=== PATIENT | female | born 1955 | race Two or more races ===

== ENCOUNTER 2020-04-17 14:16 | Outpatient (REF) | payer OTHER, SELFPAY ==
--- NOTE | 2020-04-17 | US_ITS ---
EXAMINATION: BILATERAL LOWER EXTREMITY VENOUS ULTRASOUND CLINICAL INFORMATION: Pain and swelling COMPARISON: Previous right lower extremity venous ultrasound November 2015 and left lower extremity venous ultrasound January 2010 TECHNIQUE: Doppler, color and grayscale evaluation of the veins of the bilateral lower extremities FINDINGS: The common femoral, superficial femoral, profunda and popliteal veins and visualized peroneal and posterior tibial veins in the calves are patent. There is no evidence of DVT. There is no Esparza's cyst. IMPRESSION: No evidence of DVT.
== END 2020-04-17 14:17 | disposition home or self-care (01) ==
LOC: HO.US 14:16
PROVIDERS: PCP Family Medicine; Visit Provider Emergency Medicine
DX: I83.813 Varicose veins of bilateral lower extremities with pain (principal); R22.43 Localized swelling, mass and lump, lower limb, bilateral
CPT/HCPCS: 93970

== ENCOUNTER 2020-05-03 09:38 | Outpatient (REF) | payer OTHER, SELFPAY ==
[2020-05-03 11:06] LABS: Alanine Aminotransferase 16 U/L (0-31); Albumin Level 4.1 g/dL (3.5-5.0); Alkaline Phosphatase 117 U/L (39-117); Anion Gap 16 (12-20); Aspartate Amino Transferase 16 U/L (5-31); Bilirubin Total 0.5 mg/dL (0.0-1.0); Blood Urea Nitrogen 19 mg/dL (9-16); Calcium 9.5 mg/dL (8.4-10.2); Carbon Dioxide 26 mmol/L (22-29); Chloride 103 mmol/L (96-108); Estimated Glomerular Filt Rate > 60; Glucose Random 159 mg/dL (60-115); Potassium 4.8 mmol/l (3.3-5.1); Sodium 140 mmol/L (135-145); Total Protein 7.1 g/dL (6.5-8.0)
== END 2020-05-03 09:39 | disposition home or self-care (01) ==
LOC: HO.LAB 09:38
PROVIDERS: PCP Nurse Practitioner Family; Referring Provider Nurse Practitioner Family; Visit Provider Student in an Organized Health Care Education/Training Program
DX: M19.072 Primary osteoarthritis, left ankle and foot (principal); M19.071 Primary osteoarthritis, right ankle and foot; M25.551 Pain in right hip; L60.0 Ingrowing nail; E11.9 Type 2 diabetes mellitus without complications; Z88.0 Allergy status to penicillin; Z79.84 Long term (current) use of oral hypoglycemic drugs; Z79.82 Long term (current) use of aspirin; Z79.899 Other long term (current) drug therapy
CPT/HCPCS: 80053; 99213

== ENCOUNTER 2020-05-13 12:49 | Outpatient (REF) | payer OTHER, SELFPAY ==
--- NOTE | 2020-05-13 12:50 | XR_ITS ---
EXAMINATION: BILATERAL KNEE X-RAY CLINICAL INFORMATION: Arthritis right knee. Left knee replacement. COMPARISON: Previous x-ray most recent September 2016 TECHNIQUE: Standing AP, lateral and sunrise views of both knees FINDINGS: Right: Bone alignment is normal. No fracture or dislocation is seen. There is arthritis at the medial femoral tibial and patellofemoral joints with joint space narrowing and osteophyte formation. There is degenerative meniscal calcification at the lateral femoral tibial joint. There is an osteophyte at the quadriceps tendon insertion to the patella and patellar tendon insertion to the tibia tubercle. There is no joint effusion. Left knee: There is a 3 compartment left knee replacement in satisfactory position. No fracture or dislocation is seen. There is no joint effusion. XR/XR knee standing BI IMPRESSION: Right knee: Severe arthritis. Left knee: Satisfactory appearance of left knee replacement.
--- NOTE | 2020-05-13 12:50 | XR_ITS ---
EXAMINATION: BILATERAL KNEE X-RAY CLINICAL INFORMATION: Arthritis right knee. Left knee replacement. COMPARISON: Previous x-ray most recent September 2016 TECHNIQUE: Standing AP, lateral and sunrise views of both knees FINDINGS: Right: Bone alignment is normal. No fracture or dislocation is seen. There is arthritis at the medial femoral tibial and patellofemoral joints with joint space narrowing and osteophyte formation. There is degenerative meniscal calcification at the lateral femoral tibial joint. There is an osteophyte at the quadriceps tendon insertion to the patella and patellar tendon insertion to the tibia tubercle. There is no joint effusion. Left knee: There is a 3 compartment left knee replacement in satisfactory position. No fracture or dislocation is seen. There is no joint effusion. XR/XR knee LT 2V IMPRESSION: Right knee: Severe arthritis. Left knee: Satisfactory appearance of left knee replacement.
--- NOTE | 2020-05-13 12:50 | XR_ITS ---
EXAMINATION: BILATERAL KNEE X-RAY CLINICAL INFORMATION: Arthritis right knee. Left knee replacement. COMPARISON: Previous x-ray most recent September 2016 TECHNIQUE: Standing AP, lateral and sunrise views of both knees FINDINGS: Right: Bone alignment is normal. No fracture or dislocation is seen. There is arthritis at the medial femoral tibial and patellofemoral joints with joint space narrowing and osteophyte formation. There is degenerative meniscal calcification at the lateral femoral tibial joint. There is an osteophyte at the quadriceps tendon insertion to the patella and patellar tendon insertion to the tibia tubercle. There is no joint effusion. Left knee: There is a 3 compartment left knee replacement in satisfactory position. No fracture or dislocation is seen. There is no joint effusion. XR/XR knee RT 2V IMPRESSION: Right knee: Severe arthritis. Left knee: Satisfactory appearance of left knee replacement.
== END 2020-05-13 12:50 | disposition home or self-care (01) ==
LOC: HO.HOSX 12:49
PROVIDERS: PCP Nurse Practitioner Family; Referring Provider Nurse Practitioner Family; Visit Provider Orthopaedic Surgery
DX: M17.11 Unilateral primary osteoarthritis, right knee (principal); E11.9 Type 2 diabetes mellitus without complications; I10 Essential (primary) hypertension; Z96.652 Presence of left artificial knee joint; Z79.82 Long term (current) use of aspirin; Z79.899 Other long term (current) drug therapy; Z79.84 Long term (current) use of oral hypoglycemic drugs
CPT/HCPCS: 73560; 73565; 99212

== ENCOUNTER 2020-05-20 10:56 | Outpatient (REF) | payer OTHER, SELFPAY ==
--- NOTE | 2020-05-20 11:17 | MM_ITS ---
EXAMINATION: MM SCREENING DIGITAL BREAST TOMOSYNTHESIS, BILATERAL CLINICAL INFORMATION: Screening. Asymptomatic. The lifetime risk of breast cancer based on the Tyrer-Cuzick Model is 4%. COMPARISON: Mammography: 05/18/2019, 01/17/2019, 01/04/2018; ultrasound left breast 05/18/2019, 11/17/2019 TECHNIQUE: Digital breast tomosynthesis is performed in both the craniocaudal and mediolateral oblique views along with computer-aided detection (CAD). Synthesized 2D images are generated from the tomosynthesis. Additional exaggerated left CC view is provided. FINDINGS: The breasts are almost entirely fatty (ACR BI-RADS breast composition Category a). Background stromal densities are stable. There is no developing density or interval mass or architectural abnormality or abnormal calcifications the axilla are unremarkable. No significant changes. MM/MM tomosynthesis screening BI IMPRESSION: No mammographic evidence of malignancy. ASSESSMENT: BI-RADS 1: Negative RECOMMENDATION: Routine annual mammography screening. This patient's information was entered into a reminder system with a target due date for their next mammogram.
== END 2020-05-20 10:57 | disposition home or self-care (01) ==
LOC: HO.MAMMO 10:56
PROVIDERS: PCP Family Medicine; Visit Provider Family Medicine
DX: Z12.31 Encounter for screening mammogram for malignant neoplasm of breast (principal)
CPT/HCPCS: 77063; 77067

== ENCOUNTER 2020-07-24 10:13 | Outpatient (REF) | payer OTHER, SELFPAY ==
--- NOTE | 2020-07-24 10:18 | US_ITS ---
EXAMINATION: US RETROPERITONEAL LIMITED (RENAL ONLY) CLINICAL INFORMATION: Personal history of urinary calculi. COMPARISON: CT abdomen and pelvis 05/12/2019. Renal ultrasound 04/19/2019 and 04/05/2018. X-ray abdomen KUB 09/15/2017. TECHNIQUE: Real-time imaging of the kidneys. FINDINGS: RIGHT KIDNEY: 10.4 x 5.1 x 4.8 cm (SAG x AP x TRV). The kidney is normal in size, contour, and echogenicity. Renal cortical thickness is normal. No calculi or focal parenchymal lesions. No hydronephrosis. LEFT KIDNEY: 12.6 x 5.5 x 4.6 cm (SAG x AP x TRV). The kidney is normal in size, contour, and echogenicity. Renal cortical thickness is normal. No calculi or focal parenchymal lesions. No hydronephrosis. US/US renal BI IMPRESSION: Unremarkable bilateral renal ultrasound.
== END 2020-07-24 10:14 | disposition home or self-care (01) ==
LOC: HO.US 10:13
PROVIDERS: PCP Family Medicine; Visit Provider Urology
DX: Z87.442 Personal history of urinary calculi (principal)
CPT/HCPCS: 76775

== ENCOUNTER → 2020-10-07 13:42 | Outpatient (BNVA) | payer MEDICARE, SELFPAY | PROVIDERS: PCP Family Medicine; Visit Provider Physician Assistant | DX: R14.0 Abdominal distension (gaseous) (principal) | CPT/HCPCS: Q3014 ==

== ENCOUNTER 2020-10-08 09:29 | Outpatient (REF) | payer MEDICARE, SELFPAY ==
[2020-10-08 10:22] LABS: MANUAL DIFF FLAG NO
[2020-10-08 10:38] LABS: Basophils Percent Auto 0.4 % (0-2); Eosinophils Absolute Auto 0.1 X10*3/uL (0.0-0.4); Eosinophils Percent Auto 1.6 % (0-4); Hematocrit 38.3 % (37-47); Hemoglobin 12.2 g/dl (12.0-16.0); Imm Gran Abs Auto 0.01 X10*3/uL (0.00-0.03); Imm Gran Pct Auto 0.1 % (0.0-0.4); Lymphocytes Absolute Auto 1.6 X10*3/uL (1.2-4.9); Lymphocytes Percent Auto 22.9 % (20-40); Mean Corpuscular HGB Conc 31.9 g/dl (31.0-35.0); Mean Corpuscular Hemoglobin 26.5 pg (27.0-33.0); Mean Corpuscular Volume 83.3 fL (80-98); Mean Platelet Volume 12.4 fL (9.4-12.3); Monocytes Absolute Auto 0.4 X10*3/uL (0.1-1.2); Monocytes Percent Auto 6.2 % (2-11); Neutrophils Absolute Auto 4.7 X10*3/uL (2.0-8.3); Neutrophils Percent Auto 68.8 % (45-73); Platelet Count 252 X10*3/uL (160-400); Red Cell Distribution Width 14.3 % (11.0-16.0); White Blood Count 6.9 X10*3/uL (4.8-10.8)
[2020-10-08 11:01] LABS: Estimated Average Glucose 180 mg/dL; Hemoglobin A1c % 7.9 %
[2020-10-08 11:14] LABS: Alanine Aminotransferase 21 U/L (0-31); Albumin Level 4.2 g/dL (3.5-5.0); Alkaline Phosphatase 132 U/L (39-117); Anion Gap 16 (12-20); Aspartate Amino Transferase 16 U/L (5-31); Bilirubin Total 0.6 mg/dL (0.0-1.0); Blood Urea Nitrogen 18 mg/dL (9-16); Calcium 9.4 mg/dL (8.4-10.2); Carbon Dioxide 25 mmol/L (22-29); Chloride 104 mmol/L (96-108); Estimated Glomerular Filt Rate > 60; Glucose Random 203 mg/dL (60-115); Potassium 4.6 mmol/L (3.3-5.1); Sodium 140 mmol/L (135-145); Total Protein 7.3 g/dL (6.5-8.0)
[2020-10-08 11:24] LABS: Thyroid Stimulating Hormone 2.65 uIU/mL (0.32-4.0)
== END 2020-10-08 09:30 | disposition home or self-care (01) ==
LOC: HO.LAB 09:29
PROVIDERS: PCP Family Medicine; Visit Provider Physician Assistant
DX: R74.01 Elevation of levels of liver transaminase levels (principal); R10.11 Right upper quadrant pain; A04.8 Other specified bacterial intestinal infections; E11.9 Type 2 diabetes mellitus without complications; K59.09 Other constipation
CPT/HCPCS: 36415; 80053; 83036; 84443; 85025; 87338

== ENCOUNTER 2020-12-06 02:23 | Emergency (ER) | payer MEDICARE, SELFPAY ==
--- NOTE | ~2020-12-06 | CT_ITS ---
EXAMINATION: CT ABDOMEN AND PELVIS WITHOUT CONTRAST CLINICAL INFORMATION: Left flank pain COMPARISON: 05/12/2019 TECHNIQUE: Multidetector volumetric imaging was performed from the superior aspect of the liver through the pubic symphysis. Sagittal and coronal reformatted images were obtained on the technologist's workstation. This CT examination was performed using dose optimization techniques as appropriate, variously including the following: *Automated exposure control *Adjustment of mA and/or kV according to patient size (this includes techniques or standardized protocols for targeted exams where dose is matched to indication/reason for exam; i.e. extremities or head) *Use of iterative reconstruction technique DLP: 1010 mGy-cm FINDINGS: LUNG BASES: Minimal left basilar atelectasis. Mitral annular calcification. LIVER, GALLBLADDER, AND BILIARY TREE: The liver is normal in size and shape with decreased attenuation. No focal hepatic lesion or biliary ductal dilatation is present. The gallbladder is unremarkable with no evidence of radiopaque gallstones, gallbladder wall thickening, or obvious pericholecystic inflammatory changes. PANCREAS: Unremarkable. SPLEEN: Unremarkable. ADRENAL GLANDS: Unremarkable. KIDNEYS AND URETERS: The kidneys are normal in size, shape, and attenuation. Mild left hydroureteronephrosis. There is a 0.5 cm calculus in the distal ureter approximately 4 cm proximal to the ureterovesicular junction. Mild perinephric and periureteral stranding. No additional left-sided calculi. There is a right lower pole 0.4 cm calculus 13 cm from the posterior axillary line. BLADDER: Unremarkable. GASTROINTESTINAL TRACT: The stomach is decompressed. Normal caliber small bowel. There is no obstruction. Normal appendix. No colonic wall thickening or acute inflammatory change. No free air or free fluid. ABDOMINAL WALL: Fat-containing umbilical hernia. LYMPH NODES: Normal. VASCULAR: Normal caliber aorta with moderate atherosclerotic calcification. PELVIC VISCERA: The uterus and adnexa are unremarkable. OSSEOUS STRUCTURES: No acute or suspicious osseous abnormality. Degenerative changes throughout the spine. CT/CT abdomen pelvis wo con IMPRESSION: Mild left hydroureteronephrosis with a 0.5 cm distal ureteral calculus. Nonobstructing right lower pole renal calculus. Hepatic steatosis.
[2020-12-06 02:43] VITALS: BP 169/67; PULSE 77; RESP 18; O2SAT 96; BMI 48.1
[2020-12-06 03:07] LABS: Glucose Urine UA >=1000 MG/DL (NEG); Leukocyte Esterase Urine NEG (NEG); Nitrite Urine NEG (NEG); Urine Blood 3+ (NEG); Urine Ketones NEG (NEG); Urine Protein NEG (NEG-TRACE)
[2020-12-06 03:23] LABS: Appearance Urine CLEAR; Color Urine YELLOW
[2020-12-06 03:25] LABS: Bacteria Urine 1+ /LPF; RBC Urine 30-49 /HPF (0); Squamous Epithelial Cell Urine 1+ /LPF
[2020-12-06 03:49] LABS: MANUAL DIFF FLAG NO
--- NOTE | 2020-12-06 03:49 | ED_ITS ---
HPI - General Adult General Chief complaint: General Medical Stated complaint: Flank Pain Time Seen by Provider: 12/06/20 03:42 Source: patient Mode of arrival: ambulatory Limitations: no limitations History of Present Illness HPI narrative: Patient comes emergency room complaining of left-sided flank pain. Patient states she has had kidney stones in the past and feels very similar. Patient states she was sleeping and started feeling scratching/pulling sensation from her back radiating towards the left groin area. Patient denies vomiting or diarrhea. At this time, patient has no pain. Patient states the p ain is intermittent. Patient denies dysuria/hematuria Related Data Home Medications Medication Instructions Recorded Confirmed amlodipine 5 mg tablet 5 mg PO DAILY 05/02/20 10/07/20 aspirin 81 mg tablet,delayed 81 mg PO DAILY 05/02/20 10/07/20 release calcium carbonate-magnesium oxide tab PO 05/02/20 10/07/20 250 mg-155 mg tablet cholecalciferol (vitamin D3) 50 50 mcg PO DAILY 05/02/20 10/07/20 mcg (2,000 unit) capsule dapagliflozin 5 mg tablet 5 mg PO DAILY 05/02/20 10/07/20 gabapentin 100 mg capsule 100 mg PO BID 05/02/20 10/07/20 irbesartan 300 mg tablet 300 mg PO DAILY 05/02/20 10/07/20 isosorbide mononitrate 30 mg 30 mg PO DAILY 05/02/20 10/07/20 tablet,extended release 24 hr metformin 500 mg tablet,extended 500 mg PO BID 05/02/20 10/07/20 release 24hr metoprolol succinate 50 mg 50 mg PO DAILY 05/02/20 10/07/20 tablet,extended release 24 hr rosuvastatin 10 mg tablet 10 mg PO DAILY 05/02/20 10/07/20 omeprazole 20 mg capsule,delayed 20 mg PO DAILY 10/07/20 10/07/20 release Previous Rx's Medication Instructions Recorded diclofenac sodium 1 % topical gel 2 g TOPICAL QID #100 g 05/02/20 simethicone 125 mg chewable tablet 125 mg PO QID PRN #120 tab 10/07/20 ketorolac 10 mg PO TID PRN 5 Days #10 tab 12/06/20 prednisone 20 mg PO DAILY #4 tab 12/06/20 tamsulosin 0.4 mg PO DAILY #10 cap 12/06/20 Allergies Allergy/AdvReac Type Severity Reaction Status Date / Time Penicillins [PENICILLINS] Allergy Intermediate HIVES Verified 12/06/20 02:43 Review of Systems Review of Systems: Constitutional : No Weight loss, No Fever, No Chills, No Night Sweats, No Fatigue, No Malaise ENT/Mouth : No Hearing loss, No Ear Pain, No Nasal Congestion, No Sinus Pain, No Hoarseness, No sore throat, No Rhinorrhea, No Swallowing Difficulty Eyes: No Eye Pain, No Swelling, No Redness, No Foreign Body, No Discharge, No V ision Changes Cardiovascular : No Chest Pain, No SOB, No Dyspnea on Exertion, No Orthopnea, No Edema, No Palpitations Respiratory : No Cough, No Sputum, No Wheezing, No Smoke Exposure, No Dyspnea Gastrointestinal : No Nausea, No Vomiting, No Diarrhea, No Constipation, No abdominal Pain, No Hematochezia, No Melena, complaining of left-sided flank pain Genitourinary : no irregular bleeding, No Dysuria, No Urinary Frequency, No Hematuria, No Urinary Incontinence, No Urgency, No Flank Pain, No Urinary Flow Changes, No Hesitancy Musculoskeletal : No joint pain, No Myalgias, No Joint Swelling Skin : No Skin Lesions, No rash Neuro : No Weakness, No Numbness, No Paresthesias, No Loss of Consciousness, No Dizziness, No Headache Psych : No Anxiety/Panic, No Depression, No SI/HI/AH/VH, No Social Issues, Heme/Lymph: No Bruising, No Bleeding,No Lymphadenopathy Endocrine : No Polyuria, No Polydipsia, No Temperature Intolerance [facility] Past Medical History Medical History (Updated 12/06/20 @ 05:55 by Lillie Abad MD) Diabetes mellitus Hypertension Kidney stones Osteoarthritis of left knee Osteoarthritis of right knee Surgical History History of tubal ligation Hx of total knee arthroplasty (~2017) Social History Social History (Updated 10/07/20 @ 14:26 by Jhoana Clifford CMA) Household Members: None Alcohol intake: never Smoked in Last 30 Days: No Use of substances other than those prescribed or required for medical reasons: No Advance Directives: No Advance Directives Information Provided: No Current occupational status: disabled Physical Exam Vital Signs: Vital Signs: Last Vital Signs Pulse 77 05/28/21 02:43 Resp 18 12/06/20 04:00 BP 169/67 H 12/06/20 02:43 Pulse Ox 96 12/06/20 02:43 Body Mass Index 48.1 Appearance: Alert. Oriented X3. No acute distress. Eyes: Pupils equal, round and reactive to light. ENT: Pharynx normal. Neck: Normal inspection. Neck supple. No lymph nodes noted. No crepitus CVS: Normal heart rate and rhythm. Pulses normal. Normal S1 and S2 Respiratory: No respiratory distress. Breath sounds normal. No Wheezing. No rales Abdomen: Soft and nontender. No rigidity. No distention. Mild left-sided CVA tenderness Skin: Skin warm and dry. Normal skin color. Normal skin turgor. Extremities: No lower extremity edema. No lower extremity edema. No Lacerations. No Rash Neuro: Oriented X 3. No motor deficit. No sensory deficit. Moving all extermities. No slurred speech. Course Course Course Narrative: I discussed with the patient that she has a 0.5 cm calculus. It may or may not pass by itself. Patient instructed to follow-up with urology. At this time, patient feeling better Medical Decision Making Lab Data Result diagrams: 12/06/20 03:38 12/06/20 03:38 Labs: Lab Results 12/06/20 12/06/20 12/06/20 Range/Units 03:01 03:38 03:38 WBC 8.6 (4.8-10.8) X10*3/uL RBC 4.42 (4.20-5.50) X10*6/uL Hgb 11.6 L (12.0-16.0) g/dl Hct 37.0 (37-47) % MCV 83.7 (80-98) fL MCH 26.2 L (27.0-33.0) pg MCHC 31.4 (31.0-35.0) g/dl RDW 13.9 (11.0-16.0) % Plt Count 224 (160-400) X10*3/uL MPV 12.2 (9.4-12.3) fL Immature Gran % (Auto) 0.2 (0.0-0.4) % Neut % (Auto) 73.8 H (45-73) % Lymph % (Auto) 17.8 L (20-40) % [place] % (Auto) 6.7 (2-11) % Eos % (Auto) 1.2 (0-4) % Baso % (Auto) 0.3 (0-2) % Lymph # (Auto) 1.5 (1.2-4.9) X10*3/uL [place] # (Auto) 0.6 (0.1-1.2) X10*3/uL Eos # (Auto) 0.1 (0.0-0.4) X10*3/uL Baso # (Auto) 0.0 (0.0-0.2) X10*3/uL Abs Immat Gran (auto) 0.02 (0.00-0.03) X10*3/uL Absolute Neuts (auto) 6.4 (2.0-8.3) X10*3/uL Absolute Nucleated RBC 0.000 (0.0-0.012) X10*3/uL Nucleated RBC % (auto) 0.0 (0.0-0.2) /100WBC Sodium 142 (135-145) mmol/L Potassium 4.1 (3.3-5.1) mmol/L Chloride 108 (96-108) mmol/L Carbon Dioxide 22 (22-29) mmol/L Anion Gap 16 (12-20) BUN 28 H D (9-16) mg/dL Creatinine 1.23 (0.5-1.4) mg/dL Estim Creat Clear Calc 48.5 Estimated GFR 44 Random Glucose 214 H (60-115) mg/dL Calcium 9.6 (8.4-10.2) mg/dL Total Bilirubin 0.3 (0.0-1.0) mg/dL Direct Bilirubin < 0.2 (0.0-0.5) mg/dL AST 19 (5-31) U/L ALT 24 (0-31) U/L Alkaline Phosphatase 125 H (39-117) U/L Total Protein 6.9 (6.5-8.0) g/dL Albumin 4.0 (3.5-5.0) g/dL Urine Color YELLOW Urine Appearance CLEAR Urine pH 6.0 (5.0-8.0) Ur Specific [place] 1.020 (1.005-1.025) Urine Protein NEG (NEG-TRACE) MG/DL Urine Glucose (UA) >=1000 H (NEG) MG/DL Urine Ketones NEG (NEG) MG/DL Urine Blood 3+ H (NEG) Urine Nitrite NEG (NEG) Ur Leukocyte Esterase NEG (NEG) Urine RBC 30-49 H (0) /HPF Urine WBC 1-4 (0-4) /HPF Ur Squamous Epith Cells 1+ /LPF Urine Bacteria 1+ /LPF Imaging Data CT scan - abdomen: Radiologist's impression: EXAMINATION: CT ABDOMEN AND PELVIS WITHOUT CONTRAST CLINICAL INFORMATION: Left flank pain COMPARISON: 05/12/2019 TECHNIQUE: Multidetector volumetric imaging was performed from the superior aspect of the liver through the pubic symphysis. Sagittal and coronal reformatted images were obtained on the technologist's workstation. This CT examination was performed using dose optimization techniques as appropriate, variously including the following: *Automated exposure control *Adjustment of mA and/or kV according to patient size (this includes techniques or standardized protocols for targeted exams where dose is matched to indication/reason for exam; i.e. extremities or head) *Use of iterative reconstruction technique DLP: 1010 mGy-cm FINDINGS: LUNG BASES: Minimal left basilar atelectasis. Mitral annular calcification. LIVER, GALLBLADDER, AND BILIARY TREE: The liver is normal in size and shape with decreased attenuation. No focal hepatic lesion or biliary ductal dilatation is present. The gallbladder is unremarkable with no evidence of radiopaque gallstones, gallbladder wall thickening, or obvious pericholecystic inflammatory changes. PANCREAS: Unremarkable. SPLEEN: Unremarkable. ADRENAL GLANDS: Unremarkable. KIDNEYS AND URETERS: The kidneys are normal in size, shape, and attenuation. Mild left hydroureteronephrosis. There is a 0.5 cm calculus in the distal ureter approximately 4 cm proximal to the ureterovesicular junction. Mild perinephric and periureteral stranding. No additional left-sided calculi. There is a right lower pole 0.4 cm calculus 13 cm from the posterior axillary line. BLADDER: Unremarkable. GASTROINTESTINAL TRACT: The stomach is decompressed. Normal caliber small bowel. There is no obstruction. Normal appendix. No colonic wall thickening or acute inflammatory change. No free air or free fluid. ABDOMINAL WALL: Fat-containing umbilical hernia. LYMPH NODES: Normal. VASCULAR: Normal caliber aorta with moderate atherosclerotic calcification. PELVIC VISCERA: The uterus and adnexa are unremarkable. OSSEOUS STRUCTURES: No acute or suspicious osseous abnormality. Degenerative changes throughout the spine. CT/CT abdomen pelvis wo con IMPRESSION: Mild left hydroureteronephrosis with a 0.5 cm distal ureteral calculus. Nonobstructing right lower pole renal calculus. Hepatic steatosis. Discharge Plan Discharge Clinical Impression: Ureterolithiasis Patient Disposition: Home, Self-Care Instructions: Kidney Stones (ED), Flank Pain (ED) Additional Instructions: Please follow-up with your primary care physician tomorrow. If you have any worsening or new symptoms, please return to the emergency room or call 911 Prescriptions: New ketorolac 10 mg tablet 10 mg PO TID PRN (Reason: pain) 5 Days Qty: 10 RF: 0 tamsulosin 0.4 mg capsule 0.4 mg PO DAILY Qty: 10 RF: 0 prednisone 20 mg tablet 20 mg PO DAILY Qty: 4 RF: 0 No Action omeprazole 20 mg capsule,delayed release(DR/EC) 20 mg PO DAILY RF: 0 simethicone [Gas-X Extra Strength] 125 mg tablet,chewable 125 mg PO QID PRN (Reason: abdominal distention) Qty: 120 RF: 5 gabapentin 100 mg capsule 100 mg PO BID RF: 0 Farxiga 5 mg tablet 5 mg PO DAILY RF: 0 rosuvastatin 10 mg tablet 10 mg PO DAILY RF: 0 metoprolol succinate 50 mg tablet extended release 24 hr 50 mg PO DAILY RF: 0 metformin 500 mg tablet extended release 24hr 500 mg PO BID RF: 0 aspirin [Adult Low Dose Aspirin] 81 mg tablet,delayed release (DR/EC) 81 mg PO DAILY RF: 0 amlodipine 5 mg tablet 5 mg PO DAILY RF: 0 cholecalciferol (vitamin D3) 50 mcg (2,000 unit) capsule 50 mcg PO DAILY RF: 0 isosorbide mononitrate 30 mg tablet extended release 24 hr 30 mg PO DAILY RF: 0 diclofenac sodium [Voltaren] 1 % gel 2 g topical QID Qty: 100 RF: 3 irbesartan 300 mg tablet 300 mg PO DAILY RF: 0 Oyster Shell Calcium and Mag 250-155 mg tablet PO RF: 0 Referrals: Isaiah Navarrete MD [Physician] - 2 days
[2020-12-06 04:00] VITALS: RESP 18
[2020-12-06 04:02] LABS: Basophils Percent Auto 0.3 % (0-2); Eosinophils Absolute Auto 0.1 X10*3/uL (0.0-0.4); Eosinophils Percent Auto 1.2 % (0-4); Hemoglobin 11.6 g/dl (12.0-16.0); Imm Gran Abs Auto 0.02 X10*3/uL (0.00-0.03); Imm Gran Pct Auto 0.2 % (0.0-0.4); Lymphocytes Absolute Auto 1.5 X10*3/uL (1.2-4.9); Lymphocytes Percent Auto 17.8 % (20-40); Mean Corpuscular HGB Conc 31.4 g/dl (31.0-35.0); Mean Corpuscular Hemoglobin 26.2 pg (27.0-33.0); Mean Corpuscular Volume 83.7 fL (80-98); Mean Platelet Volume 12.2 fL (9.4-12.3); Monocytes Absolute Auto 0.6 X10*3/uL (0.1-1.2); Monocytes Percent Auto 6.7 % (2-11); Neutrophils Absolute Auto 6.4 X10*3/uL (2.0-8.3); Neutrophils Percent Auto 73.8 % (45-73); Platelet Count 224 X10*3/uL (160-400); Red Blood Count 4.42 X10*6/uL (4.20-5.50); Red Cell Distribution Width 13.9 % (11.0-16.0); White Blood Count 8.6 X10*3/uL (4.8-10.8)
[2020-12-06 04:11] LABS: Alanine Aminotransferase 24 U/L (0-31); Alkaline Phosphatase 125 U/L (39-117); Anion Gap 16 (12-20); Aspartate Amino Transferase 19 U/L (5-31); Bilirubin Total 0.3 mg/dL (0.0-1.0); Blood Urea Nitrogen 28 mg/dL (9-16); Calcium 9.6 mg/dL (8.4-10.2); Carbon Dioxide 22 mmol/L (22-29); Chloride 108 mmol/L (96-108); Creatinine Clr Calc Pharmacy 48.5; Estimated Glomerular Filt Rate 44; Glucose Random 214 mg/dL (60-115); Potassium 4.1 mmol/L (3.3-5.1); Sodium 142 mmol/L (135-145); Total Protein 6.9 g/dL (6.5-8.0)
[2020-12-06 05:15] LABS: Bilirubin Direct < 0.2 mg/dL (0.0-0.5)
[2020-12-06] MEDS: Ketorolac Tromethamine 30 MG/ML VIAL IVPUSH (05:58)
== END 2020-12-06 06:09 | disposition home or self-care (01) ==
PROVIDERS: Emergency Provider Emergency Medicine; PCP Family Medicine
DX: N13.2 Hydronephrosis with renal and ureteral calculous obstruction (principal); E11.9 Type 2 diabetes mellitus without complications; Z87.442 Personal history of urinary calculi
CPT/HCPCS: 36415; 74176; 80053; 81001; 82248; 85025; 96374; 99284; J1885

== ENCOUNTER → 2020-12-16 12:40 | Outpatient (BNVA) | payer MEDICARE, SELFPAY | PROVIDERS: Referring Provider Family Medicine; Visit Provider Physician Assistant | DX: D36.9 Benign neoplasm, unspecified site (principal); K64.9 Unspecified hemorrhoids; K57.30 Diverticulosis of large intestine without perforation or abscess without bleeding; K76.0 Fatty (change of) liver, not elsewhere classified | CPT/HCPCS: 99212 ==

== ENCOUNTER 2020-12-24 17:08 | Emergency (ER) | payer MEDICARE, SELFPAY ==
--- NOTE | ~2020-12-24 | CT_ITS ---
EXAMINATION: CT ABDOMEN AND PELVIS WITHOUT CONTRAST CLINICAL INFORMATION: Right flank pain COMPARISON: 11/28/2020 TECHNIQUE: Multidetector volumetric imaging was performed from the superior aspect of the liver through the pubic symphysis. Sagittal and coronal reformatted images were obtained on the technologist's workstation. This CT examination was performed using dose optimization techniques as appropriate, variously including the following: *Automated exposure control *Adjustment of mA and/or kV according to patient size (this includes techniques or standardized protocols for targeted exams where dose is matched to indication/reason for exam; i.e. extremities or head) *Use of iterative reconstruction technique DLP: 991 mGy-cm FINDINGS: LUNG BASES: The visualized lung bases are unremarkable. LIVER, GALLBLADDER, AND BILIARY TREE: Liver normal in size, contour and morphology. Hepatic steatosis. No focal liver lesions. No intra or extrahepatic biliary dilatation. Gallbladder unremarkable. PANCREAS: Unremarkable. SPLEEN: Unremarkable. ADRENAL GLANDS: Unremarkable. KIDNEYS AND URETERS: There is a 4 mm stone within the distal right ureter, 5 cm proximal to the ureterovesical junction associated mild upstream hydroureteronephrosis. Previously seen 5 mm stone within the left ureter has passed in the interim. No left hydronephrosis. BLADDER: Unremarkable. GASTROINTESTINAL TRACT: The small and large bowel are unremarkable. The appendix is unremarkable. ABDOMINAL WALL: Small fat-containing umbilical hernia without inflammation. LYMPH NODES: Normal. VASCULAR: Aorta is atherosclerotic but normal caliber. PELVIC VISCERA: Uterus and adnexa unremarkable. OSSEOUS STRUCTURES: No acute or suspicious osseous abnormalities. CT/CT abdomen pelvis wo con IMPRESSION: There is a 4 mm stone within the distal RIGHT ureter associated with mild upstream hydroureteronephrosis.
[2020-12-24 17:58] VITALS: BP 197/78; PULSE 78; RESP 18; TEMP 36.8; O2SAT 98; BMI 48.2
[2020-12-24 20:54] LABS: Appearance Urine CLOUDY; Color Urine DARK YELLOW; Glucose Urine UA 250 MG/DL (NEG); Leukocyte Esterase Urine 1+ (NEG); Nitrite Urine NEG (NEG); PH 5.5 (5.0-8.0); Specific Gravity - Urine >= 1.030 (1.005-1.025); UACC Culture Trigger YES; Urine Blood 3+ (NEG); Urine Ketones 5 MG/DL (NEG); Urine Protein 1+ MG/DL (NEG-TRACE)
[2020-12-24 21:05] LABS: Amorphous Sediment Urine 1+ /LPF; Bacteria Urine 1+ /LPF; RBC Urine TNTC /HPF (0)
[2020-12-24 22:55] VITALS: BP 174/69; PULSE 73; RESP 18; TEMP 36.7; O2SAT 96
[2020-12-24 23:06] LABS: Basophils Percent Auto 0.4 % (0-2); Eosinophils Absolute Auto 0.1 X10*3/uL (0.0-0.4); Eosinophils Percent Auto 1.6 % (0-4); Hematocrit 35.3 % (37-47); Hemoglobin 11.7 g/dl (12.0-16.0); Imm Gran Abs Auto 0.02 X10*3/uL (0.00-0.03); Imm Gran Pct Auto 0.3 % (0.0-0.4); Lymphocytes Absolute Auto 1.7 X10*3/uL (1.2-4.9); Lymphocytes Percent Auto 22.5 % (20-40); MANUAL DIFF FLAG NO; Mean Corpuscular HGB Conc 33.1 g/dl (31.0-35.0); Mean Corpuscular Hemoglobin 27.1 pg (27.0-33.0); Mean Corpuscular Volume 81.9 fL (80-98); Monocytes Absolute Auto 0.5 X10*3/uL (0.1-1.2); Monocytes Percent Auto 6.2 % (2-11); Neutrophils Absolute Auto 5.3 X10*3/uL (2.0-8.3); Platelet Count 230 X10*3/uL (160-400); Red Blood Count 4.31 X10*6/uL (4.20-5.50); Red Cell Distribution Width 13.6 % (11.0-16.0); White Blood Count 7.6 X10*3/uL (4.8-10.8)
[2020-12-24 23:26] LABS: Alanine Aminotransferase 21 U/L (0-31); Alkaline Phosphatase 136 U/L (39-117); Anion Gap 14 (12-20); Aspartate Amino Transferase 20 U/L (5-31); Bilirubin Direct 0.2 mg/dL (0.0-0.5); Bilirubin Total 0.5 mg/dL (0.0-1.0); Blood Urea Nitrogen 16 mg/dL (9-16); Calcium 9.3 mg/dL (8.4-10.2); Carbon Dioxide 25 mmol/L (22-29); Chloride 103 mmol/L (96-108); Creatinine Clr Calc Pharmacy 50.2; Estimated Glomerular Filt Rate 45; Glucose Random 216 mg/dL (60-115); Lipase 27 U/L (8-78); Potassium 4.3 mmol/L (3.3-5.1); Sodium 138 mmol/L (135-145); Total Protein 6.9 g/dL (6.5-8.0)
--- NOTE | 2020-12-24 23:32 | ED.GENADULT ---
HPI - General Adult General Chief complaint: Abdominal Pain Stated complaint: Kidney Stone Time Seen by Provider: 12/24/20 22:47 Source: patient Mode of arrival: ambulatory Limitations: no limitations History of Present Illness HPI narrative: Patient comes emergency room complaining of right-sided flank pain. Patient states it started approximately 2 days ago. Patient denies dysuria. Patient was seen here on December 06 for left-sided flank pain, patient was diagnosed with a kidney stone. Patient states that she was able to pass the stone. Patient complaining of nausea, no vomiting or diarrhea. Related Data Home Medications Medication Instructions Recorded Confirmed amlodipine 5 mg tablet 5 mg PO DAILY 05/02/20 12/16/20 aspirin 81 mg tablet,delayed 81 mg PO DAILY 05/02/20 12/16/20 release calcium carbonate-magnesium oxide tab PO 05/02/20 12/16/20 250 mg-155 mg tablet cholecalciferol (vitamin D3) 50 50 mcg PO DAILY 05/02/20 12/16/20 mcg (2,000 unit) capsule dapagliflozin 5 mg tablet 5 mg PO DAILY 05/02/20 12/16/20 gabapentin 100 mg capsule 100 mg PO BID 05/02/20 12/16/20 irbesartan 300 mg tablet 300 mg PO DAILY 05/02/20 12/16/20 isosorbide mononitrate 30 mg 30 mg PO DAILY 05/02/20 12/16/20 tablet,extended release 24 hr metformin 500 mg tablet,extended 500 mg PO BID 05/02/20 12/16/20 release 24hr metoprolol succinate 50 mg 50 mg PO DAILY 05/02/20 12/16/20 tablet,extended release 24 hr rosuvastatin 10 mg tablet 10 mg PO DAILY 05/02/20 12/16/20 omeprazole 20 mg capsule,delayed 20 mg PO DAILY 10/07/20 12/16/20 release Previous Rx's Medication Instructions Recorded diclofenac sodium 1 % topical gel 2 g TOPICAL QID #100 g 05/02/20 ketorolac 10 mg PO TID PRN 5 Days #10 tab 12/06/20 prednisone 20 mg PO DAILY #4 tab 12/06/20 tamsulosin 0.4 mg PO DAILY #10 cap 12/06/20 simethicone 125 mg chewable tablet 125 mg PO QID PRN #120 tab 12/16/20 levofloxacin 500 mg PO DAILY #7 tab 12/25/20 ondansetron HCl [Zofran] 4 mg PO Q6H PRN #14 tab 12/25/20 prednisone 20 mg PO DAILY #5 tab 12/25/20 tamsulosin [Flomax] 0.4 mg PO DAILY #7 cap 12/25/20 tramadol 50 mg PO Q8H PRN #10 tab 12/25/20 Allergies Allergy/AdvReac Type Severity Reaction Status Date / Time Penicillins [PENICILLINS] Allergy Intermediate HIVES Verified 12/24/20 17:57 Review of Systems Review of Systems: Constitutional : No Weight loss, No Fever, No Chills, No Night Sweats, No Fatigue, No Malaise ENT/Mouth : No Hearing loss, No Ear Pain, No Nasal Congestion, No Sinus Pain, No Hoarseness, No sore throat, No Rhinorrhea, No Swallowing Difficulty Eyes: No Eye Pain, No Swelling, No Redness, No Foreign Body, No Discharge, No Vision Changes Cardiovascular : No Chest Pain, No SOB, No Dyspnea on Exertion, No Orthopnea, No Edema, No Palpitations Respiratory : No Cough, No Sputum, No Wheezing, No Smoke Exposure, No Dyspnea Gastrointestinal : Complaining of Nausea, No Vomiting, No Diarrhea, No Constipation, No abdominal Pain, No Hematochezia, No Melena, complaining right-sided flank pain Genitourinary : no irregular bleeding, No Dysuria, No Urinary Frequency, No Hematuria, No Urinary Incontinence, No Urgency, No Flank Pain, No Urinary Flow Changes, No Hesitancy Musculoskeletal : No joint pain, No Myalgias, No Joint Swelling Skin : No Skin Lesions, No rash Neuro : No Weakness, No Numbness, No Paresthesias, No Loss of Consciousness, No Dizziness, No Headache Psych : No Anxiety/Panic, No Depression, No SI/HI/AH/VH, No Social Issues, Heme/Lymph: No Bruising, No Bleeding,No Lymphadenopathy Endocrine : No Polyuria, No Polydipsia, No Temperature Intolerance [facility] Past Medical History Medical History Diabetes mellitus Hypertension Kidney stones Osteoarthritis of left knee Osteoarthritis of right knee Surgical History History of tubal ligation Hx of total knee arthroplasty (~2016) Social History Social History (Updated 12/16/20 @ 13:24 by Jhoana Clifford [facility]) Household Members: None Alcohol intake: never Patient Tobacco Use Status: Never used Tobacco Advance Directives: No Advance Directives Information Provided: No Current occupational status: disabled Physical Exam Vital Signs: Vital Signs: Last Vital Signs Temp 98.1 F 12/24/20 22:55 Pulse 82 12/25/20 02:59 Resp 18 12/25/20 02:59 BP 141/60 H 12/25/20 02:59 Pulse Ox 96 12/25/20 02:59 Body Mass Index 48.2 Appearance: Alert. Oriented X3. No acute distress. Eyes: Pupils equal, round and reactive to light. ENT: Pharynx normal. Neck: Normal inspection. Neck supple. No lymph nodes noted. No crepitus CVS: Normal heart rate and rhythm. Pulses normal. Normal S1 and S2 Respiratory: No respiratory distress. Breath sounds normal. No Wheezing. No rales Abdomen: Soft and nontender. No rigidity. No distention. , positive CVA tenderness on the right side Skin: Skin warm and dry. Normal skin color. Normal skin turgor. Extremities: No lower extremity edema. No lower extremity edema. No Lacerations. No Rash Neuro: Oriented X 3. No motor deficit. No sensory deficit. Moving all extermities. No slurred speech. Course Course Course Narrative: I discussed the CT scan and labs with the patient. Patient is passing a 4 mm stone on the right side. Patient does have a UTI. Levaquin p.o. given. Patient states that this time she has no pain at all. However, it was noted that the patient's blood pressure is 190. Patient states she forgot to take her 3 blood pressures. Patient given 1 dose of p.o. labetalol, patient blood pressure reduced to 141/60 systolic. Patient asymptomatic. Medical Decision Making Lab Data Result diagrams: 12/24/20 23:01 12/24/20 23:01 Labs: Lab Results 12/24/20 12/24/20 12/24/20 Range/Units 20:47 23:01 23:01 WBC 7.6 (4.8-10.8) X10*3/uL RBC 4.31 (4.20-5.50) X10*6/uL Hgb 11.7 L (12.0-16.0) g/dl Hct 35.3 L (37-47) % MCV 81.9 (80-98) fL MCH 27.1 (27.0-33.0) pg MCHC 33.1 (31.0-35.0) g/dl RDW 13.6 (11.0-16.0) % Plt Count 230 (160-400) X10*3/uL MPV 12.0 (9.4-12.3) fL Immature Gran % (Auto) 0.3 (0.0-0.4) % Neut % (Auto) 69.0 (45-73) % Lymph % (Auto) 22.5 (20-40) % [place] % (Auto) 6.2 (2-11) % Eos % (Auto) 1.6 (0-4) % Baso % (Auto) 0.4 (0-2) % Lymph # (Auto) 1.7 (1.2-4.9) X10*3/uL [place] # (Auto) 0.5 (0.1-1.2) X10*3/uL Eos # (Auto) 0.1 (0.0-0.4) X10*3/uL Baso # (Auto) 0.0 (0.0-0.2) X10*3/uL Abs Immat Gran (auto) 0.02 (0.00-0.03) X10*3/uL Absolute Neuts (auto) 5.3 (2.0-8.3) X10*3/uL Absolute Nucleated RBC 0.000 (0.0-0.012) X10*3/uL Nucleated RBC % (auto) 0.0 (0.0-0.2) /100WBC Sodium 138 (135-145) mmol/L Potassium 4.3 (3.3-5.1) mmol/L Chloride 103 (96-108) mmol/L Carbon Dioxide 25 (22-29) mmol/L Anion Gap 14 (12-20) BUN 16 (9-16) mg/dL Creatinine 1.19 (0.5-1.4) mg/dL Estim Creat Clear Calc 50.2 Estimated GFR 45 Random Glucose 216 H (60-115) mg/dL Calcium 9.3 (8.4-10.2) mg/dL Total Bilirubin 0.5 (0.0-1.0) mg/dL Direct Bilirubin 0.2 (0.0-0.5) mg/dL AST 20 (5-31) U/L ALT 21 (0-31) U/L Alkaline Phosphatase 136 H (39-117) U/L Total Protein 6.9 (6.5-8.0) g/dL Albumin 4.0 (3.5-5.0) g/dL Lipase 27 (8-78) U/L Urine Color DARK YELLOW Urine Appearance CLOUDY Urine pH 5.5 (5.0-8.0) Ur Specific [place] >= 1.030 H (1.005-1.025) Urine Protein 1+ H (NEG-TRACE) MG/DL Urine Glucose (UA) 250 H (NEG) MG/DL Urine Ketones 5 (NEG) MG/DL Urine Blood 3+ H (NEG) Urine Nitrite NEG (NEG) Ur Leukocyte Esterase 1+ H (NEG) Urine RBC TNTC H (0) /HPF Urine WBC 5-9 H (0-4) /HPF Ur Squamous Epith Cells NONE /LPF Amorphous Sediment 1+ /LPF Urine Bacteria 1+ /LPF Imaging Data CT scan - abdomen: Radiologist's impression: FINDINGS: LUNG BASES: The visualized lung bases are unremarkable. LIVER, GALLBLADDER, AND BILIARY TREE: Liver normal in size, contour and morphology. Hepatic steatosis. No focal liver lesions. No intra or extrahepatic biliary dilatation. Gallbladder unremarkable. PANCREAS: Unremarkable. SPLEEN: Unremarkable. ADRENAL GLANDS: Unremarkable. KIDNEYS AND URETERS: There is a 4 mm stone within the distal right ureter, 5 cm proximal to the ureterovesical junction associated mild upstream hydroureteronephrosis. Previously seen 5 mm stone within the left ureter has passed in the interim. No left hydronephrosis. BLADDER: Unremarkable. GASTROINTESTINAL TRACT: The small and large bowel are unremarkable. The appendix is unremarkable. ABDOMINAL WALL: Small fat-containing umbilical hernia without inflammation. LYMPH NODES: Normal. VASCULAR: Aorta is atherosclerotic but normal caliber. PELVIC VISCERA: Uterus and adnexa unremarkable. OSSEOUS STRUCTURES: No acute or suspicious osseous abnormalities. CT/CT abdomen pelvis wo con IMPRESSION: There is a 4 mm stone within the distal RIGHT ureter associated with mild upstream hydroureteronephrosis. Discharge Plan Discharge Clinical Impression: Ureterolithiasis Hypertension Qualifiers: Hypertension type: essential hypertension Qualified Code(s): I10 - Essential (primary) hypertension Patient Disposition: Home, Self-Care Instructions: Kidney Stones (ED), Chronic Hypertension (ED) Additional Instructions: Please follow-up with your primary care physician tomorrow. If you have any worsening or new symptoms, please return to the emergency room or call 911 Prescriptions: New tamsulosin [Flomax] 0.4 mg capsule 0.4 mg PO DAILY Qty: 7 RF: 0 prednisone 20 mg tablet 20 mg PO DAILY Qty: 5 RF: 0 ondansetron HCl [Zofran] 4 mg tablet 4 mg PO Q6H PRN (Reason: nausea and vomiting) Qty: 14 RF: 0 levofloxacin 500 mg tablet 500 mg PO DAILY Qty: 7 RF: 0 tramadol 50 mg tablet 50 mg PO Q8H PRN (Reason: pain) Qty: 10 RF: 0 No Action ketorolac 10 mg tablet 10 mg PO TID PRN (Reason: pain) 5 Days Qty: 10 RF: 0 tamsulosin 0.4 mg capsule 0.4 mg PO DAILY Qty: 10 RF: 0 prednisone 20 mg tablet 20 mg PO DAILY Qty: 4 RF: 0 omeprazole 20 mg capsule,delayed release(DR/EC) 20 mg PO DAILY RF: 0 gabapentin 100 mg capsule 100 mg PO BID RF: 0 Farxiga 5 mg tablet 5 mg PO DAILY RF: 0 rosuvastatin 10 mg tablet 10 mg PO DAILY RF: 0 metoprolol succinate 50 mg tablet extended release 24 hr 50 mg PO DAILY RF: 0 metformin 500 mg tablet extended release 24hr 500 mg PO BID RF: 0 aspirin [Adult Low Dose Aspirin] 81 mg tablet,delayed release (DR/EC) 81 mg PO DAILY RF: 0 amlodipine 5 mg tablet 5 mg PO DAILY RF: 0 cholecalciferol (vitamin D3) 50 mcg (2,000 unit) capsule 50 mcg PO DAILY RF: 0 isosorbide mononitrate 30 mg tablet extended release 24 hr 30 mg PO DAILY RF: 0 diclofenac sodium [Voltaren] 1 % gel 2 g topical QID Qty: 100 RF: 3 irbesartan 300 mg tablet 300 mg PO DAILY RF: 0 Oyster Shell Calcium and Mag 250-155 mg tablet PO RF: 0 simethicone [Gas-X Extra Strength] 125 mg tablet,chewable 125 mg PO QID PRN (Reason: abdominal distention) Qty: 120 RF: 5
[2020-12-25 01:01] VITALS: BP 197/71; PULSE 71; RESP 18; O2SAT 98
[2020-12-25] MEDS: traMADoL HCL 50 MG TABLET PO (01:31)
[2020-12-25] MEDS: levoFLOXacin 500 MG TABLET PO (01:31)
[2020-12-25 01:42] VITALS: BP 175/69; PULSE 72
[2020-12-25] MEDS: Labetalol HCL 100 MG TABLET PO (01:42)
[2020-12-25 02:59] VITALS: BP 141/60; PULSE 82; RESP 18; O2SAT 96
== END 2020-12-25 03:30 | disposition home or self-care (01) ==
PROVIDERS: Internal Medicine; Emergency Provider Emergency Medicine; PCP Family Medicine
DX: N20.0 Calculus of kidney (principal); I10 Essential (primary) hypertension; E11.9 Type 2 diabetes mellitus without complications; Z79.84 Long term (current) use of oral hypoglycemic drugs; Z79.899 Other long term (current) drug therapy
CPT/HCPCS: 36415; 74176; 80048; 80076; 81001; 81003; 83690; 85025; 87086; 99284

== ENCOUNTER → 2021-01-09 10:16 | Outpatient (BNVA) | payer MEDICARE, SELFPAY | PROVIDERS: PCP Family Medicine; Visit Provider Student in an Organized Health Care Education/Training Program | DX: M89.49 Other hypertrophic osteoarthropathy, multiple sites (principal) | CPT/HCPCS: 99212 ==

== ENCOUNTER 2021-01-17 23:09 | Emergency (ER) | payer MEDICARE, SELFPAY ==
[2021-01-18 00:18] VITALS: BP 199/107; PULSE 73; RESP 18; TEMP 36.9; O2SAT 95; BMI 47.3
--- NOTE | 2021-01-18 01:59 | ED_ITS ---
HPI - Ear Problem General Chief complaint: Ear Problems Stated complaint: Earache Time Seen by Provider: 01/18/21 01:59 History of Present Illness HPI Narrative: 65-year-old female with a history diabetes, hypertension, high cholesterol. History of ear infection in the past. Patient has been putting in ear drops for cerumen impaction. To no avail there is more discharge coming from the ear. Patient complaining of pain. No fever no chills. No systemic complaints. Related Data Home Medications Medication Instructions Recorded Confirmed amlodipine 5 mg tablet 5 mg PO DAILY 05/02/20 01/09/21 aspirin 81 mg tablet,delayed 81 mg PO DAILY 05/02/20 01/09/21 release calcium carbonate-magnesium oxide tab PO 05/02/20 01/09/21 250 mg-155 mg tablet cholecalciferol (vitamin D3) 50 50 mcg PO DAILY 05/02/20 01/09/21 mcg (2,000 unit) capsule dapagliflozin 5 mg tablet 5 mg PO DAILY 05/02/20 01/09/21 gabapentin 100 mg capsule 100 mg PO BID 05/02/20 01/09/21 irbesartan 300 mg tablet 300 mg PO DAILY 05/02/20 01/09/21 isosorbide mononitrate 30 mg 30 mg PO DAILY 05/02/20 01/09/21 tablet,extended release 24 hr metformin 500 mg tablet,extended 500 mg PO BID 05/02/20 01/09/21 release 24hr metoprolol succinate 50 mg 50 mg PO DAILY 05/02/20 01/09/21 tablet,extended release 24 hr rosuvastatin 10 mg tablet 10 mg PO DAILY 05/02/20 01/09/21 omeprazole 20 mg capsule,delayed 20 mg PO DAILY 10/07/20 01/09/21 release Previous Rx's Medication Instructions Recorded diclofenac sodium 1 % topical gel 2 g TOPICAL QID #100 g 05/02/20 ketorolac 10 mg PO TID PRN 5 Days #10 tab 12/06/20 prednisone 20 mg PO DAILY #4 tab 12/06/20 tamsulosin 0.4 mg PO DAILY #10 cap 12/06/20 simethicone 125 mg chewable tablet 125 mg PO QID PRN #120 tab 12/16/20 levofloxacin 500 mg PO DAILY #7 tab 12/25/20 ondansetron HCl [Zofran] 4 mg PO Q6H PRN #14 tab 12/25/20 prednisone 20 mg PO DAILY #5 tab 12/25/20 tamsulosin [Flomax] 0.4 mg PO DAILY #7 cap 12/25/20 tramadol 50 mg PO Q8H PRN #10 tab 12/25/20 azithromycin See Rx Instructions .ROUTE 01/18/21 .COMPLEX #6 tab malurixa-yxzred-DB-thonzonium 4 drp OTIC (EARS) TID 7 Days #10 ml 01/18/21 [Cortisporin-TC] Allergies Allergy/AdvReac Type Severity Reaction Status Date / Time Penicillins [PENICILLINS] Allergy Intermediate HIVES Verified 12/24/20 17:57 Review of Systems Review of Systems: No nausea no vomiting No fever no chills No cough and no congestion or Upper respiratory symptoms. No change in Swallowing no change in voice Yes all other systems are reviewed and are negative PMFSH Past Medical History Attestation statement: The following information was validated with the patient. Medical History Diabetes mellitus Hypertension Kidney stones Osteoarthritis of left knee Osteoarthritis of right knee Surgical History History of tubal ligation Hx of total knee arthroplasty (~2017) Social History Social History Household Members: None Alcohol intake: never Patient Tobacco Use Status: Never used Tobacco Advance Directives: No Advance Directives Information Provided: No Current occupational status: disabled Physical Exam Vital Signs: Vital Signs: Last Vital Signs Temp 98.4 F 01/18/21 00:18 Pulse 73 01/18/21 00:18 Resp 18 01/18/21 00:18 BP 199/107 H 01/18/21 00:18 Pulse Ox 95 01/18/21 00:18 Body Mass Index 47.3 Appearance: Alert. Oriented X3. No acute distress. Eyes: Pupils equal, round and reactive to light. ENT: Pharynx normal. There is no mastoid tenderness elicited on palpation. There is no redness there. TMs bilaterally. Were obscured by cerumen that appears moist. There is no gross redness noted. Neck: Normal inspection. Neck supple. No lymph nodes noted. No crepitus CVS: Normal heart rate and rhythm. Pulses normal. Normal S1 and S2 Respiratory: No respiratory distress. Breath sounds normal. No Wheezing. No rales Abdomen: Soft and nontender. No rigidity. No distention. good BS x4 Skin: Skin warm and dry. Normal skin color. Normal skin turgor. Extremities: No lower extremity edema. Neurovascular intact to all extremities. No Lacerations. No Rash Neuro: Oriented X 3. No motor deficit. No sensory deficit. Moving all extermities. No slurred speech MDM - Ear MDM Narrative Medical decision making narrative: Attempted to remove cerumen. There is wet moist whitish lesions noted. Question otitis externa. Another possibility is cerumen impaction treated with wax remover. Will start patient on Cortisporin. Will give patient and Z-Leo as the TM was not well visualized. Close follow-up on an outpatient basis.. In stable condition. Differential Diagnosis Differential diagnosis: Likely otitis externa Medical Records Attestation: I reviewed the patient's medical records. Lab Data Attestation: I reviewed the patient's lab results. Discharge Plan Discharge Clinical Impression: Otitis externa, Otitis media Patient Disposition: Home, Self-Care Instructions: Otitis Externa (ED) Prescriptions: New Cortisporin-TC 3.3-3-10-0.5 mg/mL drops,suspension 4 drp otic (ears) TID 7 Days Qty: 10 RF: 0 azithromycin 250 mg tablet See Rx Instructions .ROUTE .COMPLEX Qty: 6 RF: 0 No Action ketorolac 10 mg tablet 10 mg PO TID PRN (Reason: pain) 5 Days Qty: 10 RF: 0 tamsulosin 0.4 mg capsule 0.4 mg PO DAILY Qty: 10 RF: 0 prednisone 20 mg tablet 20 mg PO DAILY Qty: 4 RF: 0 tamsulosin [Flomax] 0.4 mg capsule 0.4 mg PO DAILY Qty: 7 RF: 0 prednisone 20 mg tablet 20 mg PO DAILY Qty: 5 RF: 0 ondansetron HCl [Zofran] 4 mg tablet 4 mg PO Q6H PRN (Reason: nausea and vomiting) Qty: 14 RF: 0 levofloxacin 500 mg tablet 500 mg PO DAILY Qty: 7 RF: 0 tramadol 50 mg tablet 50 mg PO Q8H PRN (Reason: pain) Qty: 10 RF: 0 omeprazole 20 mg capsule,delayed release(DR/EC) 20 mg PO DAILY RF: 0 gabapentin 100 mg capsule 100 mg PO BID RF: 0 Farxiga 5 mg tablet 5 mg PO DAILY RF: 0 rosuvastatin 10 mg tablet 10 mg PO DAILY RF: 0 metoprolol succinate 50 mg tablet extended release 24 hr 50 mg PO DAILY RF: 0 metformin 500 mg tablet extended release 24hr 500 mg PO BID RF: 0 aspirin [Adult Low Dose Aspirin] 81 mg tablet,delayed release (DR/EC) 81 mg PO DAILY RF: 0 amlodipine 5 mg tablet 5 mg PO DAILY RF: 0 cholecalciferol (vitamin D3) 50 mcg (2,000 unit) capsule 50 mcg PO DAILY RF: 0 isosorbide mononitrate 30 mg tablet extended release 24 hr 30 mg PO DAILY RF: 0 diclofenac sodium [Voltaren] 1 % gel 2 g topical QID Qty: 100 RF: 3 irbesartan 300 mg tablet 300 mg PO DAILY RF: 0 Oyster Shell Calcium and Mag 250-155 mg tablet PO RF: 0 simethicone [Gas-X Extra Strength] 125 mg tablet,chewable 125 mg PO QID PRN (Reason: abdominal distention) Qty: 120 RF: 5 Referrals: Carmen Santiago MD [Primary Care Provider] - 2 days Print Language: Georgian
[2021-01-18 02:11] LABS: Glucose, Whole Blood 144 mg/dL (60-115)
== END 2021-01-18 02:30 | disposition home or self-care (01) ==
PROVIDERS: Emergency Provider Emergency Medicine Emergency Medical Services; PCP Family Medicine
DX: H60.90 Unspecified otitis externa, unspecified ear (principal); H66.90 Otitis media, unspecified, unspecified ear; E11.9 Type 2 diabetes mellitus without complications; I10 Essential (primary) hypertension; Z79.82 Long term (current) use of aspirin; Z79.84 Long term (current) use of oral hypoglycemic drugs; Z79.899 Other long term (current) drug therapy
CPT/HCPCS: 82947; 99283

== ENCOUNTER 2021-03-27 08:58 | Outpatient (REF) | payer MEDICARE, SELFPAY ==
--- NOTE | ~2021-03-27 | US_ITS ---
EXAMINATION: US RETROPERITONEAL LIMITED (RENAL ONLY) CLINICAL INFORMATION: Personal history of urinary calculi. COMPARISON: CT abdomen and pelvis 12/25/2020. Renal ultrasound 07/24/2020 and 04/19/2019. KUB 09/15/2017 and 02/03/2017. TECHNIQUE: Real-time imaging of the kidneys. FINDINGS: RIGHT KIDNEY: 10.1 x 5.1 x 5.1 cm (SAG x AP x TRV). The kidney is normal in size, contour, and echogenicity. Renal cortical thickness is normal. No focal parenchymal lesions or hydronephrosis. There is anechoic cyst in the upper pole and lower pole right kidney measuring 0.3 cm. LEFT KIDNEY: 12.7 x 5.0 x 4.9 cm (SAG x AP x TRV). The kidney is normal in size, contour, and echogenicity. Renal cortical thickness is normal. No calculi or focal parenchymal lesions. No hydronephrosis. A small echogenic focus is seen in midpole. US/US renal BI IMPRESSION: Upper pole and lower pole renal cysts. Small echogenic foci in the midpole left kidney. There is no caliectasis or hydronephrosis in either kidney.
== END 2021-03-27 08:59 | disposition home or self-care (01) ==
LOC: HO.US 08:58
PROVIDERS: Visit Provider Urology
DX: Z87.442 Personal history of urinary calculi (principal)
CPT/HCPCS: 76775

== ENCOUNTER 2021-03-28 10:02 | Outpatient (REF) | payer MEDICARE, SELFPAY ==
--- NOTE | ~2021-03-28 | XR_ITS ---
EXAMINATION: XR FOOT, RIGHT CLINICAL INFORMATION: Pain. COMPARISON: None. TECHNIQUE: AP, lateral, and oblique views of the right foot. FINDINGS: No acute fracture or dislocation. Joint space narrowing with dorsal marginal osteophytes at the talonavicular, calcaneonavicular, and tarsometatarsal joints. Mild joint space narrowing with small marginal osteophytes at the interphalangeal joints. No osseous erosion. Large plantar and dorsal calcaneal enthesophytes. Mild tibiotalar joint space narrowing with small marginal osteophytes. XR/XR foot RT 2V IMPRESSION: Large plantar and dorsal calcaneal spurs. 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
== END 2021-03-28 10:03 | disposition home or self-care (01) ==
LOC: HO.XRAY 10:02
PROVIDERS: Visit Provider Nurse Practitioner Family
DX: M79.671 Pain in right foot (principal); M89.49 Other hypertrophic osteoarthropathy, multiple sites; Z79.899 Other long term (current) drug therapy; Z79.84 Long term (current) use of oral hypoglycemic drugs; Z96.652 Presence of left artificial knee joint
CPT/HCPCS: 73620; 99212

== ENCOUNTER → 2021-03-31 08:57 | Outpatient (BNVA) | payer MEDICARE, SELFPAY | PROVIDERS: PCP Family Medicine | DX: N20.0 Calculus of kidney (principal) | CPT/HCPCS: 99212 ==

== ENCOUNTER 2021-04-25 09:23 | Emergency (ER) | payer MEDICARE, SELFPAY ==
--- NOTE | 2021-04-25 | ECG_ITS ---
Test Reason : MEDICAL Blood Pressure : / mmHG Vent. Rate : 064 BPM Atrial Rate : 064 BPM P-R Int : 150 ms QRS Dur : 092 ms QT Int : 428 ms P-R-T Axes : 051 -04 061 degrees QTc Int : 441 ms Normal sinus rhythm Normal ECG No significant changes seen Referred By: Generic ED Physician Electronically Signed By:ERIN ZAVALETA MD
--- NOTE | ~2021-04-25 | XR_ITS ---
EXAMINATION: XR CHEST CLINICAL INFORMATION: Left flank pain COMPARISON: None TECHNIQUE: Frontal view of the chest was obtained. FINDINGS: No significant abnormality is noted involving the heart, lungs, mediastinum, bony thorax or soft tissues. XR/XR chest 1V IMPRESSION: Unremarkable chest examination.
--- NOTE | ~2021-04-25 | CT_ITS ---
EXAMINATION: CT ANGIOGRAM OF THE CHEST WITH AND WITHOUT CONTRAST (CT PULMONARY ANGIOGRAM FOR PE) CLINICAL INFORMATION: Shortness of breath. CT/CT angio chest PE protocol FINDINGS/IMPRESSION: Images were not obtained. As per the technologist, the intravenous contrast was not administered since the peripheral line was not appropriately placed. Patient refused to continue with the examination.
--- NOTE | ~2021-04-25 | US_ITS ---
EXAMINATION: US VENOUS ULTRASOUND WITH DOPPLER LOWER EXTREMITY, RIGHT CLINICAL INFORMATION: Right lower extremity pain. Evaluate for deep vein thrombosis. COMPARISON: Bilateral lower extremity venous ultrasound dated 04/17/2020 TECHNIQUE: Ultrasound of the deep veins is performed from the hip to the calf with compression sonography and color and pulse Doppler assessment. Spectral analysis with color-flow imaging is performed. FINDINGS: There is normal venous compression and respiratory variation and augmented flow. The visualized common femoral vein, superficial femoral vein, profunda femoral vein, popliteal vein, and the trifurcation region shows no evidence of deep venous thrombosis. There is no significant popliteal fossa cyst. If the patient's symptoms persist, followup ultrasound in 5 days 7 days might be of value to exclude proximal propagation from a non-visualized calf vein. US/US venous duplex LE RT IMPRESSION: No DVT demonstrated in the right lower extremity.
[2021-04-25 10:42] VITALS: BP 120/69; PULSE 67; RESP 18; TEMP 36.7; O2SAT 99; BMI 47.5
--- NOTE | 2021-04-25 11:25 | ED_ITS ---
HPI - General Adult General Chief complaint: General Medical Stated complaint: upper left abd & back pain Time Seen by Provider: 04/25/21 11:06 History of Present Illness HPI narrative: Patient has 66-year-old female presented today with having pain to the left chest. It is worse with movement. It is sharp. It has been ongoing. Patient had a D-dimer checked on an outpatient basis question was elevated. The pain is sharp. It is a shocking. Last a few seconds. Has a constant component as well. Patient had had previous chest pain like this in the past. No history of blood clots in the past. No travel history. Patient complaining of some swelling to the right leg as well. Patient denies any diaphoresis. No history of stress test. Positive history diabetes, hypertensio n, high cholesterol. Never had a heart attack. Patient denies any fever chills no coughing or congestion. Had her coronavirus vaccine. Patient from home. Related Data Home Medications Medication Instructions Recorded Confirmed amlodipine 5 mg tablet 5 mg PO DAILY 05/02/20 04/25/21 aspirin 81 mg tablet,delayed 81 mg PO DAILY 05/02/20 04/25/21 release (Adult Low Dose Aspirin) cholecalciferol (vitamin D3) 50 50 mcg PO DAILY 05/02/20 04/25/21 mcg (2,000 unit) capsule gabapentin 100 mg capsule 100 mg PO BID 05/02/20 04/25/21 irbesartan 300 mg tablet 300 mg PO DAILY 05/02/20 04/25/21 isosorbide mononitrate 30 mg 30 mg PO DAILY 05/02/20 04/25/21 tablet,extended release 24 hr metformin 500 mg tablet,extended 500 mg PO BID 05/02/20 04/25/21 release 24hr metoprolol succinate 50 mg 50 mg PO DAILY 05/02/20 04/25/21 tablet,extended release 24 hr rosuvastatin 10 mg tablet 10 mg PO DAILY 05/02/20 04/25/21 omeprazole 20 mg capsule,delayed 20 mg PO DAILY 10/07/20 04/25/21 release albuterol sulfate 90 mcg/actuation 2 puff PO Q4-6H PRN 04/25/21 04/25/21 aerosol inhaler (Ventolin HFA) calcium carbonate 500 mg (1,250 1 tab PO DAILY 04/25/21 04/25/21 mg)-vitamin D3 200 unit tablet (Oyster Shell Calcium-Vit D3) dapagliflozin 10 mg tablet 1 tab PO QAM 04/25/21 04/25/21 (Farxiga) fluticasone propionate 220 1 puff PO BID 04/25/21 04/25/21 mcg/actuation HFA aerosol inhaler (Flovent HFA) fluticasone propionate 50 2 spray INTRANASAL DAILY PRN 04/25/21 04/25/21 mcg/actuation nasal spray,suspension loratadine 10 mg tablet 1 tab PO DAILY 04/25/21 04/25/21 meclizine 25 mg tablet 1 tab PO TID PRN 04/25/21 04/25/21 Previous Rx's Medication Instructions Recorded simethicone 125 mg chewable tablet 125 mg PO QID PRN #120 tab 12/16/20 (Gas-X Extra Strength) Allergies Allergy/AdvReac Type Severity Reaction Status Date / Time Penicillins [PENICILLINS] Allergy Intermediate HIVES Verified 04/25/21 10:42 fluticasone Allergy Mild Unknown Verified 04/25/21 10:42 [From Advair Diskus] potassium Allergy Mild Unknown Verified 04/25/21 10:42 salmeterol Allergy Mild Unknown Verified 04/25/21 10:42 [From Advair Diskus] Review of Systems Review of Systems: Positive chest pain on the left side No shortness breath no diaphoresis No cough no congestion or upper respiratory symptoms Yes all other systems are reviewed and are negative PMFSH Past Medical History Attestation statement: The following information was validated with the patient. Medical History Achilles tendinitis Bursitis of heel Diabetes mellitus Eczema GERD (gastroesophageal reflux disease) Hypercholesterolemia Hypertension Irritable bowel syndrome Juvenile xanthogranuloma Kidney stones Microscopic hematuria Osteoarthritis of left knee Osteoarthritis of right knee Pilar cysts Renal calculi Surgical History History of surgery History of tubal ligation Hx of total knee arthroplasty (~2017) Social History Social History Household Members: None Alcohol intake: never Patient Tobacco Use Status: Never used Tobacco Advance Directives: No Current occupational status: disabled Physical Exam Vital Signs: Vital Signs: Last Vital Signs Temp 98.1 F 04/25/21 10:42 Pulse 69 04/25/21 21:09 Resp 16 04/25/21 21:09 BP 160/75 H 04/25/21 21:09 Pulse Ox 100 04/25/21 21:09 Body Mass Index 47.5 Appearance: Alert. Oriented X3. No acute distress. Eyes: Pupils equal, round and reactive to light. ENT: Pharynx normal. Neck: Normal inspection. Neck supple. No lymph nodes noted. No crepitus CVS: Normal heart rate and rhythm. Pulses normal. Normal S1 and S2 Respiratory: No respiratory distress. Breath sounds normal. No Wheezing. No rales Abdomen: Soft and nontender. No rigidity. No distention. good BS x4 Skin: Skin warm and dry. Normal skin color. Normal skin turgor. Extremities: No lower extremity edema. Neurovascular intact to all extremities. No Lacerations. No Rash Neuro: Oriented X 3. No motor deficit. No sensory deficit. Moving all extermities. No slurred speech Medical Decision Making MDM Narrative Medical decision making narrative: Patient complaining of left-sided chest pain. That is sharp. For sets of cardiac enzyme was negative. Patient's chest pain is atypical for ACS. Pain ongoing for greater than 6 hours. Patient chest x- ray showed no focal infiltrate. Had a an elevated D-dimer yesterday. A Doppler of the right lower extremity was done. It was negative for DVT. A repeat D- dimer was done in the emergency department. It was grossly negative at 210. No evidence of blood clots. Patient's LFTs are normal. Pain is on the left side. Sharp atypical. Discussed with patient the need for a CTA. It was recommended by her primary physician. Patient wanted a CTA to be done. An IV was placed. Unfortunately doing the CTA patient's IV blew. Contrast was leading to patient's arm. On exam patient's forearm was grossly swollen. There is 1+ edema. There is no pain on passive motion. There is good pulses and radial. Sensation intact. There is no paresthesia. There is pain located in the forearm. Capillary refill was less than 2 seconds. At this time felt patient does not have compartment syndrome. Patient re-examined and 21:00. Has no pain in the forearm. There is swelling in the forearm noted. There is good range of motion at the wrist. There is no pain on movement of the wrist. Movement of the hand completely intact capillary refill less than 2 seconds. Sensation intact. Pulses 2+ at radial. Warren at this time patient does not have signs of compartment syndrome in the forearm. Discussed with family at length about patient's condition. Warren patient's risk for PE exceptionally low given that her D-dimer today was negative. The 1 leg that she felt was slightly swollen is negative for DVT. Patient's EKG was normal. It showed a sinus pattern heart rate is 60 LA QRS QT within normal limits there is no ST segment elevation. Patient's troponin negative. History not consistent with ACS. Will discharge patient home. Explained to patient about the arm swelling. Feel badly that this happened but it is a known complication from CTA of the chest. Patient is currently in stable condition. Will discharge home. Lab Data Lab results reviewed: Yes I reviewed the patient's lab results. Result diagrams: 04/25/21 14:29 04/25/21 14:29 Labs: Lab Results 04/25/21 04/25/21 04/25/21 Range/Units 13:49 14:29 14:29 WBC 8.6 (4.8-10.8) X10*3/uL RBC 4.71 (4.20-5.50) X10*6/uL Hgb 12.7 (12.0-16.0) g/dl Hct 38.5 (37-47) % MCV 81.7 (80-98) fL MCH 27.0 (27.0-33.0) pg MCHC 33.0 (31.0-35.0) g/dl RDW 13.4 (11.0-16.0) % Plt Count 251 (160-400) X10*3/uL MPV 11.7 (9.4-12.3) fL Immature Gran % (Auto) 0.3 (0.0-0.4) % Neut % (Auto) 72.3 (45-73) % Lymph % (Auto) 20.6 (20-40) % [place] % (Auto) 5.6 (2-11) % Eos % (Auto) 1.0 (0-4) % Baso % (Auto) 0.2 (0-2) % Lymph # (Auto) 1.8 (1.2-4.9) X10*3/uL [place] # (Auto) 0.5 (0.1-1.2) X10*3/uL Eos # (Auto) 0.1 (0.0-0.4) X10*3/uL Baso # (Auto) 0.0 (0.0-0.2) X10*3/uL Abs Immat Gran (auto) 0.03 (0.00-0.03) X10*3/uL Absolute Neuts (auto) 6.2 (2.0-8.3) X10*3/uL Absolute Nucleated RBC 0.000 (0.0-0.012) X10*3/uL Nucleated RBC % (auto) 0.0 (0.0-0.2) /100WBC D-Dimer NG/ML Sodium 140 (135-145) mmol/L Potassium 4.1 (3.3-5.1) mmol/L Chloride 104 (96-108) mmol/L Carbon Dioxide 28 (22-29) mmol/L Anion Gap 12 (12-20) BUN 15 (9-16) mg/dL Creatinine 0.78 (0.5-1.4) mg/dL Estim Creat Clear Calc 74.6 Estimated GFR > 60 POC Glucose 119 H (60-115) mg/dL Random Glucose 127 H (60-115) mg/dL Calcium 9.9 D (8.4-10.2) mg/dL Magnesium (1.6-2.6) mg/dL Total Bilirubin (0.0-1.0) mg/dL Direct Bilirubin (0.0-0.5) mg/dL AST (5-31) U/L ALT (0-31) U/L Alkaline Phosphatase (39-117) U/L Troponin I High Sens (<3.5-17.0) ng/L Total Protein (6.5-8.0) g/dL Albumin (3.5-5.0) g/dL 04/25/21 04/25/21 04/25/21 Range/Units 14:29 14:29 14:29 WBC (4.8-10.8) X10*3/uL RBC (4.20-5.50) X10*6/uL Hgb (12.0-16.0) g/dl Hct (37-47) % MCV (80-98) fL MCH (27.0-33.0) pg MCHC (31.0-35.0) g/dl RDW (11.0-16.0) % Plt Count (160-400) X10*3/uL MPV (9.4-12.3) fL Immature Gran % (Auto) (0.0-0.4) % Neut % (Auto) (45-73) % Lymph % (Auto) (20-40) % [place] % (Auto) (2-11) % Eos % (Auto) (0-4) % Baso % (Auto) (0-2) % Lymph # (Auto) (1.2-4.9) X10*3/uL [place] # (Auto) (0.1-1.2) X10*3/uL Eos # (Auto) (0.0-0.4) X10*3/uL Baso # (Auto) (0.0-0.2) X10*3/uL Abs Immat Gran (auto) (0.00-0.03) X10*3/uL Absolute Neuts (auto) (2.0-8.3) X10*3/uL Absolute Nucleated RBC (0.0-0.012) X10*3/uL Nucleated RBC % (auto) (0.0-0.2) /100WBC D-Dimer 213 NG/ML Sodium (135-145) mmol/L Potassium (3.3-5.1) mmol/L Chloride (96-108) mmol/L Carbon Dioxide (22-29) mmol/L Anion Gap (12-20) BUN (9-16) mg/dL Creatinine (0.5-1.4) mg/dL Estim Creat Clear Calc Estimated GFR POC Glucose (60-115) mg/dL Random Glucose (60-115) mg/dL Calcium 10.1 (8.4-10.2) mg/dL Magnesium 1.5 L (1.6-2.6) mg/dL Total Bilirubin 0.6 (0.0-1.0) mg/dL Direct Bilirubin 0.2 (0.0-0.5) mg/dL AST 22 (5-31) U/L ALT 28 (0-31) U/L Alkaline Phosphatase 126 H (39-117) U/L Troponin I High Sens 4.5 (<3.5-17.0) ng/L Total Protein 7.4 (6.5-8.0) g/dL Albumin 4.3 (3.5-5.0) g/dL Discharge Plan Discharge Clinical Impression: Chest pain Patient Disposition: Home, Self-Care Instructions: Chest Pain (ED), Chest Wall Pain (ED) Additional Instructions: Your right forearm is swollen. Likely from the IV contrast we injected. Please use warm soaks elevate. Swelling with come down with time. If worsen pain. No pulse. Unable to move arm. Return to the emergency department immediately. Worsened chest pain return. Prescriptions: No Action meclizine 25 mg tablet 1 tab PO TID PRN (Reason: dizziness) RF: 0 Flovent HFA 220 mcg/actuation HFA aerosol inhaler 1 puff PO BID RF: 0 albuterol sulfate [Ventolin HFA] 90 mcg/actuation HFA aerosol inhaler 2 puff PO Q4-6H PRN (Reason: Wheezing) RF: 0 fluticasone propionate 50 mcg/actuation spray,suspension 2 spray intranasal DAILY PRN (Reason: Allergy Symptoms) RF: 0 loratadine 10 mg tablet 1 tab PO DAILY RF: 0 calcium carbonate-vitamin D3 [Oyster Shell Calcium-Vit D3] 500 mg(1,250mg) - 200 unit tablet 1 tab PO DAILY RF: 0 Farxiga 10 mg tablet 1 tab PO QAM RF: 0 omeprazole 20 mg capsule,delayed release(DR/EC) 20 mg PO DAILY RF: 0 gabapentin 100 mg capsule 100 mg PO BID RF: 0 rosuvastatin 10 mg tablet 10 mg PO DAILY RF: 0 metoprolol succinate 50 mg tablet extended release 24 hr 50 mg PO DAILY RF: 0 metformin 500 mg tablet extended release 24hr 500 mg PO BID RF: 0 aspirin [Adult Low Dose Aspirin] 81 mg tablet,delayed release (DR/EC) 81 mg PO DAILY RF: 0 amlodipine 5 mg tablet 5 mg PO DAILY RF: 0 cholecalciferol (vitamin D3) 50 mcg (2,000 unit) capsule 50 mcg PO DAILY RF: 0 isosorbide mononitrate 30 mg tablet extended release 24 hr 30 mg PO DAILY RF: 0 irbesartan 300 mg tablet 300 mg PO DAILY RF: 0 simethicone [Gas-X Extra Strength] 125 mg tablet,chewable 125 mg PO QID PRN (Reason: abdominal distention) Qty: 120 RF: 5 Referrals: [facility] [Primary Care Provider] - 2 days
[2021-04-25 13:53] LABS: Glucose, Whole Blood 119 mg/dL (60-115)
--- NOTE | 2021-04-25 13:53 | PHA.MEDREC ---
Pharmacy Consult ? Medication Reconciliation Pharmacy has completed the medication reconciliation. There are no remarkable issues for provider's attention. Patient use Med[facility] from [facility]. Jay CastilloD
[2021-04-25 14:37] LABS: MANUAL DIFF FLAG NO
[2021-04-25 14:38] LABS: Basophils Percent Auto 0.2 % (0-2); Eosinophils Absolute Auto 0.1 X10*3/uL (0.0-0.4); Hematocrit 38.5 % (37-47); Hemoglobin 12.7 g/dl (12.0-16.0); Imm Gran Abs Auto 0.03 X10*3/uL (0.00-0.03); Imm Gran Pct Auto 0.3 % (0.0-0.4); Lymphocytes Absolute Auto 1.8 X10*3/uL (1.2-4.9); Lymphocytes Percent Auto 20.6 % (20-40); Mean Corpuscular Volume 81.7 fL (80-98); Mean Platelet Volume 11.7 fL (9.4-12.3); Monocytes Absolute Auto 0.5 X10*3/uL (0.1-1.2); Monocytes Percent Auto 5.6 % (2-11); Neutrophils Absolute Auto 6.2 X10*3/uL (2.0-8.3); Neutrophils Percent Auto 72.3 % (45-73); Platelet Count 251 X10*3/uL (160-400); Red Blood Count 4.71 X10*6/uL (4.20-5.50); Red Cell Distribution Width 13.4 % (11.0-16.0); White Blood Count 8.6 X10*3/uL (4.8-10.8)
[2021-04-25 14:53] LABS: D Dimer 213 NG/ML
[2021-04-25 14:54] LABS: Alanine Aminotransferase 28 U/L (0-31); Albumin Level 4.3 g/dL (3.5-5.0); Alkaline Phosphatase 126 U/L (39-117); Anion Gap 12 (12-20); Aspartate Amino Transferase 22 U/L (5-31); Bilirubin Direct 0.2 mg/dL (0.0-0.5); Bilirubin Total 0.6 mg/dL (0.0-1.0); Blood Urea Nitrogen 15 mg/dL (9-16); Calcium 10.1 mg/dL (8.4-10.2); Calcium 9.9 mg/dL (8.4-10.2); Carbon Dioxide 28 mmol/L (22-29); Chloride 104 mmol/L (96-108); Creatinine Clr Calc Pharmacy 74.6; Estimated Glomerular Filt Rate > 60; Glucose Random 127 mg/dL (60-115); Magnesium 1.5 mg/dL (1.6-2.6); Potassium 4.1 mmol/L (3.3-5.1); Sodium 140 mmol/L (135-145); Total Protein 7.4 g/dL (6.5-8.0)
[2021-04-25 15:00] LABS: Troponin-I High Sensitivity 4.5 ng/L (<3.5-17.0)
[2021-04-25 21:09] VITALS: BP 160/75; PULSE 69; RESP 16; O2SAT 100
[2021-04-25] MEDS: Acetaminophen 325 MG TABLET 650 MG PO (21:32)
== END 2021-04-25 21:38 | disposition home or self-care (01) ==
PROVIDERS: Emergency Provider Emergency Medicine Emergency Medical Services
DX: R07.9 Chest pain, unspecified (principal); M54.50 Low back pain, unspecified; R10.32 Left lower quadrant pain; R60.0 Localized edema; Z79.899 Other long term (current) drug therapy
CPT/HCPCS: 36415; 71045; 71275; 80048; 80076; 82310; 82947; 83735; 84484; 85025; 85379; 93005; 93971; 99284

== ENCOUNTER 2021-05-21 10:27 | Outpatient (REF) | payer MEDICARE, SELFPAY ==
--- NOTE | ~2021-05-21 | MM_ITS ---
EXAMINATION: MM SCREENING DIGITAL BREAST TOMOSYNTHESIS, BILATERAL CLINICAL INFORMATION: Screening. Asymptomatic. The lifetime risk of breast cancer based on the Tyrer-Cuzick Model is 3%. COMPARISON: Mammography: 05/20/2020, 05/18/2019, 01/17/2019, 01/04/2018 TECHNIQUE: Digital breast tomosynthesis is performed in both the craniocaudal and mediolateral oblique views along with computer-aided detection (CAD). Synthesized 2D images are generated from the tomosynthesis. FINDINGS: There are scattered areas of fibroglandular density (ACR BI-RADS breast composition Category b). There are no significant masses, abnormal calcifications, or other abnormalities. MM/MM tomosynthesis screening BI IMPRESSION: No mammographic evidence of malignancy. ASSESSMENT: BI-RADS 1: Negative RECOMMENDATION: Routine annual mammography screening. This patient's information was entered into a reminder system with a target due date for their next mammogram.
== END 2021-05-21 10:28 | disposition home or self-care (01) ==
LOC: HO.MAMMO 10:27
PROVIDERS: PCP General Practice; Visit Provider Family Medicine
DX: Z12.31 Encounter for screening mammogram for malignant neoplasm of breast (principal)
CPT/HCPCS: 77063; 77067

== ENCOUNTER 2021-07-29 07:49 | Outpatient (REF) | payer MEDICARE, SELFPAY ==
--- NOTE | ~2021-07-29 | US_ITS ---
EXAMINATION: US RETROPERITONEAL LIMITED (RENAL ONLY) CLINICAL INFORMATION: Calculus of kidney. COMPARISON: Renal ultrasound 03/27/2021. CT abdomen and pelvis 12/25/2020. TECHNIQUE: Real-time imaging of the kidneys. FINDINGS: RIGHT KIDNEY: 10.5 x 5.3 x 4.9 cm (SAG x AP x TRV). The kidney is normal in size, contour, and echogenicity. Renal cortical thickness is normal. No calculi or focal parenchymal lesions. No hydronephrosis. LEFT KIDNEY: 11.7 x 5.3 x 4.6 cm (SAG x AP x TRV). The kidney is normal in size, contour, and echogenicity. Renal cortical thickness is normal. No calculi or focal parenchymal lesions. No hydronephrosis. US/US renal BI IMPRESSION: Unremarkable sonographic imaging of the kidneys. Specifically, no renal calculi or hydronephrosis bilaterally.
== END 2021-07-29 07:50 | disposition home or self-care (01) ==
LOC: HO.US 07:49
DX: N20.0 Calculus of kidney (principal)
CPT/HCPCS: 76775

== ENCOUNTER → 2021-08-04 09:35 | Outpatient (BNVA) | payer MEDICARE, SELFPAY | DX: Z13.89 Encounter for screening for other disorder (principal) | CPT/HCPCS: Q3014 ==

== ENCOUNTER → 2021-08-07 08:59 | Outpatient (BNVA) | payer MEDICARE, SELFPAY | PROVIDERS: PCP General Practice; Visit Provider Physician Assistant | DX: K76.0 Fatty (change of) liver, not elsewhere classified (principal); K21.9 Gastro-esophageal reflux disease without esophagitis; R10.12 Left upper quadrant pain; Z78.9 Other specified health status | CPT/HCPCS: Q3014 ==

== ENCOUNTER → 2021-10-08 08:08 | Outpatient (BNVA) | payer OTHER, SELFPAY | PROVIDERS: PCP General Practice; Referring Provider General Practice; Visit Provider Physician Assistant | DX: R10.12 Left upper quadrant pain (principal); K21.9 Gastro-esophageal reflux disease without esophagitis | CPT/HCPCS: 99212 ==

== ENCOUNTER 2021-10-30 11:04 | Outpatient (REF) | payer OTHER, SELFPAY ==
--- NOTE | ~2021-10-30 | US_ITS ---
EXAMINATION: MM DIAGNOSTIC DIGITAL BREAST TOMOSYNTHESIS, LEFT US DIAGNOSTIC ULTRASOUND BREAST, LEFT CLINICAL INFORMATION: Intermittent left breast pain for years. Increasing thickness on palpation. No known family history breast cancer. The lifetime risk of breast cancer based on the Tyrer-Cuzick Model is 3%. COMPARISON: Mammography: 05/21/2021, 05/20/2020, 05/18/2019 TECHNIQUE: Digital breast tomosynthesis is performed in both the craniocaudal and mediolateral oblique views along with computer-aided detection (CAD). Synthesized 2D images are generated from the tomosynthesis. Additional left MLO view is provided. Ultrasound left breast is targeted to the areas of clinical concern 10:00 through 4:00 position. Grayscale imaging and color Doppler are performed without and with harmonics. FINDINGS: There are scattered areas of fibroglandular density (ACR BI-RADS breast composition Category b). Parenchymal pattern is similar to prior exams. There is no developing density or interval mass or architectural abnormality. No abnormal calcifications. No skin thickening or coarsening of the Maico's ligaments. No significant changes. Ultrasound demonstrates no cystic or solid mass, architectural abnormality, or focal duct ectasia. No skin skin thickening or edema tracking in soft tissue planes. No hyperemia. Results are discussed with the patient at time of visit, using an paraprofessional interpreter. US/US breast LT limited IMPRESSION: No mammographic evidence of malignancy or inflammatory changes. Unremarkable targeted left breast ultrasound. ASSESSMENT: BI-RADS 1: Negative RECOMMENDATION: 1. Patient should be managed based on the clinical impression. If clinically indicated, further evaluation may be considered with surgical consult. Decision to proceed with biopsy should be based on clinical grounds and degree of clinical concern. 2. Otherwise, routine annual screening mammography. This patient's information was entered into a reminder system with a target due date for their next mammogram.
== END 2021-10-30 11:05 | disposition home or self-care (01) ==
LOC: HO.MAMMO 11:04
PROVIDERS: Visit Provider Advanced Practice Midwife
DX: N63.25 Unspecified lump in the left breast, overlapping quadrants (principal)
CPT/HCPCS: 76642; 77061; 77065

== ENCOUNTER 2021-11-14 08:47 | Outpatient (REF) | payer OTHER, SELFPAY ==
--- NOTE | ~2021-11-14 | MM_ITS ---
EXAMINATION: BONE DENSITOMETRY CLINICAL INDICATION: Menopause. COMPARISON: This is the patient's baseline examination. TECHNIQUE: Using a [employer] DXA System (software version: 13.1) manufactured by [employer], dual-energy x-ray absorptiometry was performed of the lumbar spine and left hip. The images are of good technical quality. Summary results are attached. FINDINGS: AP SPINE L2-L4 (excluding L1): The data of L1-L4 has been changed to exclude the L1 vertebral body, because degenerative sclerosis at this level may cause overestimation of lumbar spine density. BMD 1.216 g/cm2, Z-score 0.6, T-score 0.1, normal. LEFT FEMUR, NECK: BMD 0.925 g/cm2, Z-score 0.1, T-score -0.8, normal. LEFT FEMUR, TOTAL: BMD 0.984 g/cm2, Z-score 0.4, T-score -0.2, normal. IDENTIFIED RISK FACTORS: Early menopause, secondary osteoporosis, glucocorticoids (chronic). HISTORY OF FRACTURE: None listed. MEDICATIONS: None listed. MM/XR DEXA axial skeleton IMPRESSION: 1. DIAGNOSIS: Normal bone density based on the lowest T-score value of -0.8 in the femoral neck applying World Health Organization criteria. 2. 10-YEAR FRACTURE RISK PREDICTION, FRAX: Major osteoporotic fracture (clinical spine, forearm, hip or shoulder) 6.1%. Hip fracture 0.5%. 3. Treatment Recommendations: NOF guidelines recommend consideration for treatment in postmenopausal women and men age 50 and older presenting with the following: -A hip or vertebral (clinical or morphometric) fracture. -T-score less than or equal to -2.5 at the femoral neck or spine after appropriate evaluation to exclude secondary causes. -Low bone mass at the hip or spine and a 10-year fracture probability by FRAX of greater than or equal to 3% for hip fracture or greater than or equal to 20% for major osteoporotic fracture based on the [place] adapted WHO algorithm. 4. Other Recommendations: All treatment decisions require clinical judgment and consideration of individual patient factors, including patient preferences, comorbidities, previous drug use, risk factors not captured in the FRAX model (e.g. frailty, falls, vitamin D deficiency, increased bone turnover, interval significant decline in bone density) and possible under or overestimation of fracture risk by FRAX. FUTURE SCAN RECOMMENDATION: People with diagnosed cases of osteoporosis or at high risk for fracture should have regular bone mineral density tests. For patients eligible for Medicare, routine testing is allowed once every 2 years. The testing frequency can be increased to one year for patients who have rapidly progressing disease, those who are receiving or discontinuing medical therapy to restore bone mass, or have additional risk factors.
== END 2021-11-14 08:48 | disposition home or self-care (01) ==
LOC: HO.MAMMO 08:47
PROVIDERS: Visit Provider Advanced Practice Midwife
DX: Z13.820 Encounter for screening for osteoporosis (principal); N95.1 Menopausal and female climacteric states; Z79.899 Other long term (current) drug therapy
CPT/HCPCS: 77080

== ENCOUNTER 2021-11-27 08:05 | Outpatient (REF) | payer OTHER, SELFPAY ==
[2021-11-27 08:37] LABS: MANUAL DIFF FLAG NO
[2021-11-27 09:23] LABS: Basophils Percent Auto 0.4 % (0-2); Eosinophils Absolute Auto 0.1 X10*3/uL (0.0-0.4); Eosinophils Percent Auto 1.7 % (0-4); Hematocrit 39.6 % (37.0-47.0); Hemoglobin 12.6 g/dl (12.0-16.0); Imm Gran Abs Auto 0.02 X10*3/uL (0.00-0.03); Imm Gran Pct Auto 0.3 % (0.0-0.4); Lymphocytes Absolute Auto 1.8 X10*3/uL (1.2-4.9); Lymphocytes Percent Auto 24.8 % (20-40); Mean Corpuscular HGB Conc 31.8 g/dl (31.0-35.0); Mean Corpuscular Hemoglobin 26.6 pg (27.0-33.0); Mean Corpuscular Volume 83.7 fL (80.0-98.0); Mean Platelet Volume 12.1 fL (9.4-12.3); Monocytes Absolute Auto 0.5 X10*3/uL (0.1-1.2); Monocytes Percent Auto 7.1 % (2-11); Neutrophils Absolute Auto 4.6 x10*3/uL (2.0-8.3); Neutrophils Percent Auto 65.7 % (45-73); Platelet Count 236 X10*3/uL (160-400); Red Blood Count 4.73 X10*6/uL (4.20-5.50); Red Cell Distribution Width 13.6 % (11.0-16.0); White Blood Count 7.1 X10*3/uL (4.8-10.8)
[2021-11-27 09:48] LABS: Alanine Aminotransferase 25 U/L (0-31); Albumin Level 4.2 g/dL (3.5-5.0); Alkaline Phosphatase 124 U/L (39-117); Aspartate Amino Transferase 19 U/L (5-31); Bilirubin Direct 0.2 mg/dL (0.0-0.5); Bilirubin Total 0.6 mg/dL (0.0-1.0); Total Protein 7.4 g/dL (6.5-8.0)
== END 2021-11-27 08:06 | disposition home or self-care (01) ==
LOC: HO.LAB 08:05
PROVIDERS: Visit Provider Physician Assistant
DX: R10.12 Left upper quadrant pain (principal); R10.11 Right upper quadrant pain
CPT/HCPCS: 36415; 80076; 85025

== ENCOUNTER → 2021-12-01 09:03 | Outpatient (BNVA) | payer OTHER, SELFPAY | PROVIDERS: PCP General Practice; Referring Provider General Practice; Visit Provider Physician Assistant | DX: K42.9 Umbilical hernia without obstruction or gangrene (principal); R10.84 Generalized abdominal pain; G89.29 Other chronic pain; E66.9 Obesity, unspecified; Z68.42 Body mass index [BMI] 45.0-49.9, adult | CPT/HCPCS: 99212 ==

== ENCOUNTER → 2021-12-12 08:00 | Outpatient (BNVA) | payer OTHER, SELFPAY | PROVIDERS: PCP General Practice; Referring Provider Physician Assistant; Visit Provider Surgery | DX: K42.9 Umbilical hernia without obstruction or gangrene (principal); K76.0 Fatty (change of) liver, not elsewhere classified; K21.9 Gastro-esophageal reflux disease without esophagitis; E66.9 Obesity, unspecified; R14.0 Abdominal distension (gaseous); R10.84 Generalized abdominal pain; E11.9 Type 2 diabetes mellitus without complications; G47.33 Obstructive sleep apnea (adult) (pediatric); G89.29 Other chronic pain; Z68.42 Body mass index [BMI] 45.0-49.9, adult | CPT/HCPCS: 99202 ==

== ENCOUNTER 2021-12-15 06:43 | Outpatient (REF) | payer OTHER, SELFPAY ==
[2021-12-15 07:26] LABS: MANUAL DIFF FLAG NO
[2021-12-15 07:56] LABS: Basophils Percent Auto 0.3 % (0-2); Eosinophils Absolute Auto 0.2 X10*3/uL (0.0-0.4); Eosinophils Percent Auto 2.4 % (0-4); Hemoglobin 12.6 g/dl (12.0-16.0); Imm Gran Abs Auto 0.02 X10*3/uL (0.00-0.03); Imm Gran Pct Auto 0.3 % (0.0-0.4); Lymphocytes Absolute Auto 1.8 X10*3/uL (1.2-4.9); Mean Corpuscular HGB Conc 31.5 g/dl (31.0-35.0); Mean Corpuscular Hemoglobin 26.3 pg (27.0-33.0); Mean Corpuscular Volume 83.3 fL (80.0-98.0); Mean Platelet Volume 11.7 fL (9.4-12.3); Monocytes Absolute Auto 0.4 X10*3/uL (0.1-1.2); Monocytes Percent Auto 6.2 % (2-11); Neutrophils Absolute Auto 4.6 x10*3/uL (2.0-8.3); Neutrophils Percent Auto 65.8 % (45-73); Platelet Count 231 X10*3/uL (160-400); Red Cell Distribution Width 13.7 % (11.0-16.0); White Blood Count 7.1 X10*3/uL (4.8-10.8)
[2021-12-15 08:09] LABS: Estimated Average Glucose 180 mg/dL; Hemoglobin A1c % 7.9 %
[2021-12-15 08:21] LABS: Alanine Aminotransferase 25 U/L (0-31); Albumin Level 4.2 g/dL (3.5-5.0); Alkaline Phosphatase 120 U/L (39-117); Anion Gap 15 (12-20); Aspartate Amino Transferase 19 U/L (5-31); Bilirubin Direct 0.2 mg/dL (0.0-0.5); Bilirubin Total 0.6 mg/dL (0.0-1.0); Blood Urea Nitrogen 20 mg/dL (9-16); Calcium 9.7 mg/dL (8.4-10.2); Carbon Dioxide 25 mmol/L (22-29); Chloride 103 mmol/L (96-108); Cholesterol 218 mg/dL; Estimated Glomerular Filt Rate > 60; Glucose Random 164 mg/dL (60-115); HDL Cholesterol 42 mg/dL; LDL Cholesterol Calculated 128 mg/dl; Potassium 4.8 mmol/L (3.3-5.1); Sodium 138 mmol/L (135-145); Total Protein 7.4 g/dL (6.5-8.0); Triglycerides 242 mg/dL
== END 2021-12-15 06:44 | disposition home or self-care (01) ==
LOC: HO.LAB 06:43
PROVIDERS: Physician Assistant; Visit Provider Surgery
DX: R10.11 Right upper quadrant pain (principal); R74.01 Elevation of levels of liver transaminase levels; K76.0 Fatty (change of) liver, not elsewhere classified; E11.9 Type 2 diabetes mellitus without complications; E66.9 Obesity, unspecified; K42.9 Umbilical hernia without obstruction or gangrene; R10.84 Generalized abdominal pain; R14.0 Abdominal distension (gaseous)
CPT/HCPCS: 36415; 80053; 80061; 82248; 83036; 85025

== ENCOUNTER 2022-01-13 09:00 | Outpatient (REF) | payer OTHER, SELFPAY ==
--- NOTE | ~2022-01-13 | US_ITS ---
EXAMINATION: US RETROPERITONEAL LIMITED (RENAL ONLY) CLINICAL INFORMATION: Calculus of kidney. COMPARISON: Renal ultrasound 07/29/2021 and 03/27/2021. CT abdomen and pelvis 12/25/2020. X-ray abdomen KUB 09/15/2017. TECHNIQUE: Real-time imaging of the kidneys. FINDINGS: RIGHT KIDNEY: 10.6 x 4.7 x 4.4 cm (SAG x AP x TRV). The kidney is normal in size, contour, and echogenicity. Renal cortical thickness is normal. There is question of a small stone in the lower pole measuring 3 mm. No focal parenchymal lesions. No hydronephrosis. LEFT KIDNEY: 13.0 x 5.3 x 4.8 cm (SAG x AP x TRV). The kidney is normal in size, contour, and echogenicity. Renal cortical thickness is normal. No calculi or focal parenchymal lesions. No hydronephrosis. US/US renal BI IMPRESSION: Question small right renal stone.
== END 2022-01-13 09:01 | disposition home or self-care (01) ==
LOC: HO.US 09:00
DX: N20.0 Calculus of kidney (principal)
CPT/HCPCS: 76775

== ENCOUNTER 2022-02-02 07:47 | Outpatient (REF) | payer OTHER, SELFPAY ==
--- NOTE | ~2022-02-02 | US_ITS ---
EXAMINATION: US ABDOMEN LIMITED CLINICAL INFORMATION: Right upper quadrant pain. COMPARISON: Renal ultrasound 01/13/2022. CT abdomen and pelvis 12/25/2020. TECHNIQUE: Real-time imaging of the right upper quadrant abdominal viscera. Technically difficult study secondary to bowel gas and body habitus. FINDINGS: PANCREAS: Pancreas is unremarkable. No pancreatic ductal distention or retroperitoneal effusion. LIVER: Liver is within limits of normal size and smooth in contour. There is increased hepatic parenchymal echogenicity consistent with hepatic steatosis. No focal hepatic parenchymal lesion or intrahepatic biliary ductal dilatation. GALLBLADDER: Gallbladder is distended normally and shows no wall thickening or pericholecystic fluid. There are 2 small mural echogenic foci which are nonmobile, possibly polyps under 3 mm or related to cholesterolosis. Negative sonographic Mccallum's sign. COMMON BILE DUCT: Normal in caliber measuring 0.4 cm in diameter. RIGHT KIDNEY: Right kidney measures 10.4 cm in length. There is no hydronephrosis or caliectasis. There is a specular echo lower pole 3 mm but without shadowing or definite twinkling artifact on color Doppler to confirm nonobstructing calculus. FREE FLUID: None. US/US abdomen limited IMPRESSION: -2 small gallbladder polyps versus cholesterolosis. No gallstones, gallbladder wall thickening, or biliary ductal dilatation. -Hepatic steatosis. No focal hepatic parenchymal lesion demonstrated by ultrasound. -No right hydronephrosis or caliectasis.
== END 2022-02-02 07:48 | disposition home or self-care (01) ==
LOC: HO.US 07:47
PROVIDERS: Visit Provider Surgery
DX: R10.11 Right upper quadrant pain (principal)
CPT/HCPCS: 76705

== ENCOUNTER → 2022-02-06 07:44 | Outpatient (BNVA) | payer OTHER, SELFPAY | PROVIDERS: PCP General Practice; Referring Provider General Practice; Visit Provider Surgery | DX: K58.9 Irritable bowel syndrome, unspecified (principal); K82.4 Cholesterolosis of gallbladder; K21.9 Gastro-esophageal reflux disease without esophagitis; K42.9 Umbilical hernia without obstruction or gangrene; G47.33 Obstructive sleep apnea (adult) (pediatric) | CPT/HCPCS: 99212 ==

== ENCOUNTER 2022-03-06 14:06 | Outpatient (REF) | payer OTHER, SELFPAY ==
--- NOTE | ~2022-03-06 | MR_ITS ---
EXAMINATION: MR BRAIN WITHOUT CONTRAST CLINICAL INFORMATION: Headache. Thoracic aortic ectasia. COMPARISON: CT scan the head 05/22/2015. TECHNIQUE: Multiplanar MR imaging of the brain was performed without contrast. FINDINGS: There are multiple foci of T2 FLAIR signal hyperintensity primarily distributed within the periventricular white matter. There is no acute territorial infarct. There is a tiny nonspecific focus of susceptibility artifact located within the right thalamus. Intracranial vascular flow voids are grossly maintained. 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 There is no intracranial mass effect or midline shift. No abnormal extra-axial collection. Lateral and third ventricles are normal. No hydrocephalus. The cervicomedullary junction is normal. No acute bone marrow signal changes. There are small bilateral mastoid tip effusions. Mild paranasal sinus and total thickening primarily involving the ethmoid air cells and the alveolar recesses of the maxillary sinuses. Globes and orbits are symmetric. MR/MR head/brain wo con IMPRESSION: There are scattered chronic small vessel ischemic changes primarily involving the periventricular white matter. No evidence of acute territorial infarct or hemorrhage. 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
== END 2022-03-06 14:07 | disposition home or self-care (01) ==
LOC: HO.MRI 14:06
PROVIDERS: Visit Provider Family Medicine
DX: I77.810 Thoracic aortic ectasia (principal); R51.9 Headache, unspecified
CPT/HCPCS: 70551

== ENCOUNTER → 2022-03-09 20:30 | Outpatient (REF) | payer OTHER, SELFPAY | LOC: HO.SL 20:30 | PROVIDERS: Visit Provider Family Medicine | DX: G47.33 Obstructive sleep apnea (adult) (pediatric) (principal); R06.83 Snoring; E66.01 Morbid (severe) obesity due to excess calories; R40.0 Somnolence; R51.9 Headache, unspecified; R10.84 Generalized abdominal pain; K57.30 Diverticulosis of large intestine without perforation or abscess without bleeding; K76.0 Fatty (change of) liver, not elsewhere classified; D36.9 Benign neoplasm, unspecified site | CPT/HCPCS: 95810; 99212 ==

== ENCOUNTER → 2022-04-27 20:30 | Outpatient (REF) | payer OTHER, SELFPAY | LOC: HO.SL 20:30 | PROVIDERS: Visit Provider General Practice | DX: G47.33 Obstructive sleep apnea (adult) (pediatric) (principal) | CPT/HCPCS: 95811 ==

== ENCOUNTER 2022-05-12 07:58 | Outpatient (REF) | payer OTHER, SELFPAY ==
--- NOTE | ~2022-05-12 | XR_ITS ---
EXAMINATION: XR SHOULDER, RIGHT CLINICAL INFORMATION: Pain COMPARISON: Previous x-ray May 2018 TECHNIQUE: AP external rotation, Grashey, scapular Y, and axillary views of the right shoulder. FINDINGS: Bone alignment is normal. No fracture or dislocation. Normal glenohumeral joint. Arthritis at the acromioclavicular joint. Osteophyte formation along the greater tuberosity. XR/XR shoulder RT min 2V IMPRESSION: Degenerative changes.
== END 2022-05-12 07:59 | disposition home or self-care (01) ==
LOC: HO.XRAY 07:58
PROVIDERS: PCP General Practice; Visit Provider Emergency Medicine
DX: M25.511 Pain in right shoulder (principal)
CPT/HCPCS: 73030

== ENCOUNTER → 2022-05-19 13:00 | Outpatient (BNVA) | payer OTHER, SELFPAY | PROVIDERS: PCP General Practice; Visit Provider Nurse Practitioner Family | DX: G47.33 Obstructive sleep apnea (adult) (pediatric) (principal); E66.9 Obesity, unspecified; Z68.42 Body mass index [BMI] 45.0-49.9, adult | CPT/HCPCS: 99202 ==

== ENCOUNTER → 2022-07-09 13:52 | Outpatient (BNVA) | payer OTHER, SELFPAY | PROVIDERS: PCP General Practice; Visit Provider Nurse Practitioner Family | DX: M17.11 Unilateral primary osteoarthritis, right knee (principal); M89.49 Other hypertrophic osteoarthropathy, multiple sites | CPT/HCPCS: 99212 ==

== ENCOUNTER 2022-07-29 09:30 | Outpatient (REF) | payer OTHER, SELFPAY ==
--- NOTE | ~2022-07-29 | XR_ITS ---
EXAMINATION: XR KNEE, RIGHT CLINICAL INFORMATION: Pain. COMPARISON: Radiographs dated 05/13/2020. TECHNIQUE: AP, lateral and sunrise views of the right knee are submitted. FINDINGS: Bony alignment and mineralization are normal. There is moderately severe asymmetric narrowing of the medial joint space compartment. The lateral joint space compartment is well-maintained. There is a slight varus configuration. There is moderate narrowing of the patellofemoral compartment. There is tricompartment peripheral osteophyte formation. No fracture, dislocation or significant right knee joint effusion is seen. There is an enthesophyte arising from the upper pole of the patella at the quadriceps tendon insertion. There are atherosclerotic calcifications. XR/XR knee RT 3V IMPRESSION: There is tricompartment osteoarthritic change, most pronounced of the medial joint space compartment. There is a secondary slight varus configuration.
== END 2022-07-29 09:31 | disposition home or self-care (01) ==
LOC: HO.XRAY 09:30
PROVIDERS: Visit Provider Nurse Practitioner Family
DX: M25.561 Pain in right knee (principal)
CPT/HCPCS: 73562

== ENCOUNTER 2022-08-10 14:02 | Outpatient (REF) | payer OTHER, SELFPAY | END 2022-08-10 14:03 | disposition home or self-care (01) | LOC: HO.LAB 14:02 | PROVIDERS: PCP General Practice; Visit Provider Nurse Practitioner Family | DX: R10.9 Unspecified abdominal pain (principal); N20.0 Calculus of kidney; N39.0 Urinary tract infection, site not specified | CPT/HCPCS: 51798; 87086; 99212 ==

== ENCOUNTER 2022-08-25 07:38 | Outpatient (REF) | payer OTHER, SELFPAY ==
--- NOTE | ~2022-08-25 | CT_ITS ---
EXAMINATION: CT ABDOMEN AND PELVIS WITHOUT CONTRAST CLINICAL INFORMATION: R10.9 - Unspecified abdominal pain. COMPARISON: Multiple previous renal ultrasound studies. TECHNIQUE: Multidetector volumetric imaging was performed from the lung bases through the pubic symphysis following the administration of: Oral contrast: No Intravenous contrast: None Sagittal and coronal reformatted images were obtained on the technologist workstation. Total exam dose-length product 793 mGy-cm This CT examination was performed using dose optimization techniques as appropriate, variously including the following: *Automated exposure control *Adjustment of mA and/or kV according to patient size (this includes techniques or standardized protocols for targeted exams where dose is matched to indication/reason for exam; i.e. extremities or head) *Use of iterative reconstruction technique FINDINGS: LUNG BASES: Visualized lung bases and mediastinum are normal. No pleural effusion. There is a small amount of pericardial fluid present. There is calcification of the mitral annulus. Coronary artery calcifications are seen. LIVER, GALLBLADDER, BILIARY TREE: Hepatomegaly is present with vertical span of approximately 21 cm. No focal mass or intrapelvic bile duct dilatation is identified. Cholelithiasis present without evidence of acute cholecystitis. PANCREAS: Normal; no mass or surrounding fluid. SPLEEN: Normal size. No focal lesion. ADRENAL GLANDS: Normal; no mass. KIDNEYS AND URETERS: The right kidney is smaller than the left with some mild cortical thinning compared to the left. There is mild perinephric stranding seen bilaterally. No right hydronephrosis is evident. No right renal calculi are seen. No right renal mass is appreciated. The right ureter appears unremarkable. There is a 4 mm nonobstructing calculus seen within the upper pole of the left kidney. No hydronephrosis is evident. No focal mass is seen the left ureter appears unremarkable. BLADDER: No focal mass or wall thickening seen. No bladder calculi. GASTROINTESTINAL TRACT: No free air or free fluid is identified. No dilated loops of large or small bowel are seen. No bowel wall thickening is appreciated. No pericolonic inflammatory change is seen. No evidence of acute appendicitis. ABDOMINAL WALL: There is a fat-containing umbilical hernia present. LYMPHOVASCULAR STRUCTURES: No lymphadenopathy is appreciated. There are some prominent inguinal lymph nodes seen bilaterally. There is moderate aortoiliac calcified plaque without evidence of abdominal aortic aneurysm. PELVIC VISCERA: Unremarkable. OSSEOUS STRUCTURES: No suspicious destructive bony lesions identified. Changes of enthesopathy are evident. There is calcification of the anterior longitudinal ligament within visualized portions of the thoracic spine consistent with DISH. There is bilateral facet arthropathy L4-S1. CT/CT kidney stone IMPRESSION: Left nephrolithiasis without evidence of obstructive uropathy. Small pericardial effusion. Mild hepatomegaly. Cholelithiasis without evidence of acute cholecystitis.
== END 2022-08-25 07:39 | disposition home or self-care (01) ==
LOC: HO.CT 07:38
PROVIDERS: PCP General Practice; Visit Provider Nurse Practitioner Family
DX: R10.9 Unspecified abdominal pain (principal); N20.0 Calculus of kidney
CPT/HCPCS: 74176

== ENCOUNTER → 2022-09-15 13:14 | Outpatient (BNVA) | payer OTHER, SELFPAY | PROVIDERS: PCP General Practice; Visit Provider Nurse Practitioner Family | DX: R31.29 Other microscopic hematuria (principal); N20.0 Calculus of kidney; Z87.442 Personal history of urinary calculi | CPT/HCPCS: 99212 ==

== ENCOUNTER 2022-10-16 13:44 | Outpatient (REF) | payer OTHER, SELFPAY ==
--- NOTE | ~2022-10-16 | US_ITS ---
EXAMINATION: US PELVIS CLINICAL INFORMATION: Pelvic pain and bleeding COMPARISON: Pelvic ultrasound 06/14/2007. CT scan abdomen and pelvis 08/25/22. TECHNIQUE: Ultrasound of the pelvis is performed using both transabdominal and transvaginal transducers along with Doppler. Transvaginal imaging is performed due to inadequate visualization transabdominally. FINDINGS: Uterus: The uterus is anteverted and measures 9.8 x 5.1 x 6.5 cm. The double wall endometrial thickness is 10 mm. The uterus is smooth in contour and has normal myometrial echogenicity. There are calcifications in the lower uterus which appear to be vascular when correlated with prior CT scan. Adnexa: Neither ovary is visible. There is no free fluid. US/US pelvic complete IMPRESSION: Nonvisualization of the ovaries. Thickened endometrial stripe measuring 10 mm. Recommend referral to gynecology for consideration of endometrial biopsy.
== END 2022-10-16 13:45 | disposition home or self-care (01) ==
LOC: HO.US 13:44
PROVIDERS: PCP General Practice; Referring Provider Advanced Practice Midwife; Visit Provider General Practice
DX: N95.0 Postmenopausal bleeding (principal)
CPT/HCPCS: 76856

== ENCOUNTER → 2022-10-29 13:11 | Outpatient (BNVA) | payer OTHER, SELFPAY | PROVIDERS: PCP General Practice; Visit Provider Physician Assistant | DX: K82.4 Cholesterolosis of gallbladder (principal); R10.12 Left upper quadrant pain | CPT/HCPCS: 99212 ==

== ENCOUNTER 2022-10-30 09:16 | Outpatient (REF) | payer OTHER, SELFPAY ==
[2022-10-30 09:42] LABS: MANUAL DIFF FLAG NO
[2022-10-30 09:51] LABS: Basophils Percent Auto 0.4 % (0-2); Eosinophils Absolute Auto 0.1 X10*3/uL (0.0-0.4); Eosinophils Percent Auto 1.2 % (0-4); Hematocrit 37.7 % (37.0-47.0); Hemoglobin 12.2 g/dl (12.0-16.0); Imm Gran Abs Auto 0.03 X10*3/uL (0.00-0.03); Imm Gran Pct Auto 0.4 % (0.0-0.4); Lymphocytes Absolute Auto 1.8 X10*3/uL (1.2-4.9); Lymphocytes Percent Auto 23.6 % (20-40); Mean Corpuscular HGB Conc 32.4 g/dl (31.0-35.0); Mean Corpuscular Hemoglobin 26.6 pg (27.0-33.0); Mean Corpuscular Volume 82.3 fL (80.0-98.0); Mean Platelet Volume 11.7 fL (9.4-12.3); Monocytes Absolute Auto 0.4 X10*3/uL (0.1-1.2); Monocytes Percent Auto 5.5 % (2-11); Neutrophils Absolute Auto 5.1 x10*3/uL (2.0-8.3); Neutrophils Percent Auto 68.9 % (45-73); Platelet Count 237 X10*3/uL (160-400); Red Blood Count 4.58 X10*6/uL (4.20-5.50); Red Cell Distribution Width 13.6 % (11.0-16.0); White Blood Count 7.4 X10*3/uL (4.8-10.8)
[2022-10-30 10:13] LABS: Blood Urea Nitrogen 24 mg/dL (9-16); Estimated Glomerular Filt Rate 53
== END 2022-10-30 09:17 | disposition home or self-care (01) ==
LOC: HO.LAB 09:16
PROVIDERS: Nurse Practitioner Family; PCP Pediatrics; Visit Provider Physician Assistant
DX: R39.15 Urgency of urination (principal); R10.12 Left upper quadrant pain
CPT/HCPCS: 36415; 82565; 84520; 85025

== ENCOUNTER → 2022-11-17 07:56 | Outpatient (BNVA) | payer OTHER, SELFPAY | PROVIDERS: PCP Pediatrics; Visit Provider Nurse Practitioner Family | DX: G47.33 Obstructive sleep apnea (adult) (pediatric) (principal); E66.9 Obesity, unspecified; Z68.42 Body mass index [BMI] 45.0-49.9, adult; Z99.89 Dependence on other enabling machines and devices | CPT/HCPCS: 99212 ==

== ENCOUNTER 2022-12-02 09:46 | Outpatient (REF) | payer OTHER, SELFPAY ==
--- NOTE | ~2022-12-02 | US_ITS ---
EXAMINATION: US ABDOMEN COMPLETE CLINICAL INFORMATION: Cholesterolosis of the gallbladder. COMPARISON: Ultrasound abdomen limited 02/02/2022. Renal ultrasound 01/13/2022. CT abdomen and pelvis 12/25/2020. X-ray KUB 09/15/2017 and 02/03/2017. TECHNIQUE: Real-time imaging of the abdominal viscera. FINDINGS: PANCREAS: The pancreas appears unremarkable, without masses or ductal dilatation, with the exception of the tail which is obscured by bowel gas. ABDOMINAL AORTA: The proximal abdominal aorta is not seen, the distal and mid abdominal aorta are nonaneurysmal and unremarkable. INFERIOR VENA CAVA: Visualized portions are normal. LIVER: Liver is enlarged at 21.3 cm in greatest cephalocaudad dimension and demonstrates increased echogenicity consistent with hepatic steatosis. The liver contour is normal. No focal hepatic lesion. There is no intrahepatic biliary duct dilatation seen. GALLBLADDER: A 4 x 3 x 5 mm gallbladder polyp is present. At the time of the prior study, 2 nonmobile mural densities are seen under 3 mm in size. The gallbladder is physiologically distended without evidence of stones, sludge, wall thickening or pericholecystic fluid. COMMON BILE DUCT: Normal in caliber measuring 0.2 cm in diameter. RIGHT KIDNEY: Normal. No hydronephrosis. No renal calculi or focal parenchymal lesions. The kidney measures 10.1 cm in maximum dimension. LEFT KIDNEY: Normal. No hydronephrosis. No renal calculi or focal parenchymal lesions. The kidney measures 11.8 cm in maximum dimension. SPLEEN: Normal. The spleen measures 11.7 cm in maximum dimension. FREE FLUID: None. US/US abdomen complete IMPRESSION: 1. Enlarged fatty liver. 2. Gallbladder polyp. This has increased in size from 3 mm to 5 mm in size. -Polyp <6 mm. Follow-up ultrasound at 6 months, then yearly for 5 years (an increase in size) and 5 years from the date of original exam documenting the findings. If the patient has risk factors for gallbladder malignancy, cholecystectomy is recommended the patient is fit for and accepts surgery. If cholecystectomy is not deemed appropriate follow-up as below.
== END 2022-12-02 09:47 | disposition home or self-care (01) ==
LOC: HO.US 09:46
PROVIDERS: PCP Pediatrics; Visit Provider Nurse Practitioner Family
DX: K82.4 Cholesterolosis of gallbladder (principal)
CPT/HCPCS: 76700

== ENCOUNTER 2022-12-09 12:56 | Outpatient (REF) | payer OTHER, SELFPAY ==
--- NOTE | ~2022-12-09 | US_ITS ---
EXAMINATION: US PELVIS LIMITED (BLADDER) CLINICAL INFORMATION: Personal history of urinary calculi. COMPARISON: Ultrasound abdomen complete 12/02/2022. CT abdomen and pelvis without contrast 08/25/2022. Ultrasound abdomen limited 02/02/2022. X-ray abdomen KUB 09/15/2017 and 02/03/2017. TECHNIQUE: Real-time imaging of the bladder. FINDINGS: BLADDER: Well distended and normal. Bilateral ureteral jets are not demonstrated. Prevoid bladder volume is 143.0 mL. Postvoid bladder volume is 6.7 mL. US/US bladder IMPRESSION: Negative exam.
== END 2022-12-09 12:57 | disposition home or self-care (01) ==
LOC: HO.US 12:56
PROVIDERS: PCP Pediatrics; Visit Provider Nurse Practitioner Family
DX: R31.29 Other microscopic hematuria (principal); N20.0 Calculus of kidney; Z87.442 Personal history of urinary calculi
CPT/HCPCS: 76857

== ENCOUNTER → 2022-12-15 10:05 | Outpatient (BNVA) | payer OTHER, SELFPAY | PROVIDERS: PCP Pediatrics; Visit Provider Nurse Practitioner Family | DX: N20.0 Calculus of kidney (principal); R35.0 Frequency of micturition; R39.15 Urgency of urination | CPT/HCPCS: 99212 ==

== ENCOUNTER 2022-12-21 09:23 | Outpatient (REF) | payer OTHER, SELFPAY ==
[2022-12-22 22:08] LABS: HPV mRNA E6/E7 rflx Not Detected (Not Detected)
== END 2022-12-21 09:24 | disposition home or self-care (01) ==
LOC: HO.LNP 09:23
PROVIDERS: PCP Pediatrics; Visit Provider Obstetrics & Gynecology
DX: Z01.419 Encounter for gynecological examination (general) (routine) without abnormal findings (principal); Z11.51 Encounter for screening for human papillomavirus (HPV); N95.0 Postmenopausal bleeding
CPT/HCPCS: 58100; 87624; 88142; 88305; 88341; 88342; 88360; 99202

== ENCOUNTER → 2022-12-22 08:36 | Outpatient (BNVA) | payer OTHER, SELFPAY | PROVIDERS: PCP Pediatrics; Visit Provider Nurse Practitioner Family | DX: G47.33 Obstructive sleep apnea (adult) (pediatric) (principal); R53.83 Other fatigue; E66.9 Obesity, unspecified; Z91.148 Patient's other noncompliance with medication regimen for other reason | CPT/HCPCS: 99212 ==

== ENCOUNTER 2022-12-30 10:32 | Outpatient (REF) | payer OTHER, SELFPAY ==
--- NOTE | ~2022-12-30 | XR_ITS ---
EXAMINATION: XR CHEST 2 VIEWS CLINICAL INFORMATION: Malignant neoplasm of endometrium. COMPARISON: Prior chest radiographs, most recently 04/25/2021. TECHNIQUE: Frontal and lateral views of the chest were obtained. FINDINGS: The heart, great vessels, pulmonary vasculature and mediastinum are stable. The patient is somewhat rotated, and there is a moderate thoracic levoscoliosis. The lungs show no focal infiltrate, effusion or pneumothorax. There is no acute osseous abnormality. There is multi-level thoracic spondylosis. XR/XR chest 2V IMPRESSION: No active cardiopulmonary disease.
[2023-01-01 15:43] LABS: CA-125 16 U/mL (<35)
== END 2022-12-30 10:33 | disposition home or self-care (01) ==
LOC: HO.LAB 10:32
PROVIDERS: PCP Pediatrics; Visit Provider Obstetrics & Gynecology
DX: C54.1 Malignant neoplasm of endometrium (principal)
CPT/HCPCS: 36415; 71046; 86304; 99212

== ENCOUNTER 2023-01-15 07:19 | Outpatient (REF) | payer OTHER, SELFPAY ==
[2023-01-15 08:50] LABS: Blood Urea Nitrogen 17 mg/dL (9-16); Estimated Glomerular Filt Rate 59
== END 2023-01-15 07:20 | disposition home or self-care (01) ==
LOC: HO.LAB 07:19
PROVIDERS: PCP General Practice; Visit Provider Obstetrics & Gynecology
DX: Z01.812 Encounter for preprocedural laboratory examination (principal)
CPT/HCPCS: 36415; 82565; 84520

== ENCOUNTER 2023-01-22 06:43 | Outpatient (REF) | payer OTHER, SELFPAY | END 2023-01-22 06:44 | disposition home or self-care (01) | LOC: HO.CT 06:43 | PROVIDERS: PCP General Practice; Visit Provider Obstetrics & Gynecology | DX: Z13.89 Encounter for screening for other disorder (principal) ==

== ENCOUNTER 2023-02-03 11:26 | Outpatient (REF) | payer OTHER, SELFPAY ==
--- NOTE | ~2023-02-03 | CT_ITS ---
EXAMINATION: CT ABDOMEN AND PELVIS WITH CONTRAST CLINICAL INFORMATION: Malignant neoplasm of endometrium. COMPARISON: None available. TECHNIQUE: Multidetector volumetric images were obtained from the superior aspect of the liver through the pubic symphysis following administration 85 mL of Omnipaque 350 intravenous contrast. Sagittal and coronal reformatted images were obtained on the technologist's workstation. Oral contrast: No This CT examination was performed using dose optimization techniques as appropriate, variously including the following: *Automated exposure control *Adjustment of mA and/or kV according to patient size (this includes techniques or standardized protocols for targeted exams where dose is matched to indication/reason for exam; i.e. extremities or head) *Use of iterative reconstruction technique DLP: 762 mGy-cm FINDINGS: LUNG BASES: The lung bases are unremarkable. The heart size is normal. LIVER, GALLBLADDER, AND BILIARY TREE: The liver is normal in size, shape, and attenuation. No focal hepatic lesion or biliary ductal dilatation is present. There is a 2 mm dependent radiopaque gallstone. No additional stone seen. There is no wall thickening or pericolic fat stranding. PANCREAS: Unremarkable SPLEEN: Unremarkable. ADRENAL GLANDS: Unremarkable. KIDNEYS AND URETERS: The kidneys are normal in size, shape, and attenuation. There is a 4 mm nonobstructive radiopaque calculus upper pole left kidney. It is 11.9 cm from posterior skin line. No additional radiopaque calculi seen. There is no caliectasis or hydronephrosis. BLADDER: Unremarkable. GASTROINTESTINAL TRACT: There is scattered stool and gas and oral contrast seen throughout the colon without distention. Small bowel filling defect in the right transverse colon coronal image 39/7 is most likely stool. The small bowel loops are normal caliber. No inflammatory process seen in the abdomen. ABDOMINAL WALL: There is a small umbilical hernia containing fat. LYMPH NODES: Normal. VASCULAR: Unremarkable. PELVIC VISCERA: The uterus is anteverted with scattered calcification of the uterocervical junction. Small shotty lymph nodes seen in the pelvis measuring 2-3 mm. OSSEOUS STRUCTURES: No aggressive lytic or sclerotic process seen. There is moderate ventral spondylosis lower dorsal and upper lumbar spine. CT/CT abdomen pelvis w IV con IMPRESSION: 1. No acute intra-abdominal process seen. 2. Nonobstructive radiopaque calculus upper pole left kidney. 3. Mild constipation. 4. Umbilical hernia containing fat. 5. Small gallstone. Fleischner guidelines were followed.
[2023-02-03] MEDS: iohexoL 350 MG/ML 100 ML INFUS..BTL IV (14:44)
== END 2023-02-03 11:27 | disposition home or self-care (01) ==
LOC: HO.CT 11:26
PROVIDERS: PCP General Practice; Visit Provider Obstetrics & Gynecology
DX: C54.1 Malignant neoplasm of endometrium (principal)
CPT/HCPCS: 74177; Q9967

== ENCOUNTER 2023-02-17 07:49 | Outpatient (REF) | payer OTHER, SELFPAY ==
--- NOTE | ~2023-02-17 | US_ITS ---
EXAMINATION: US ABDOMEN LIMITED CLINICAL INFORMATION: Abnormal findings on diagnostic imaging of other abdominal region. COMPARISON: CT abdomen and pelvis with contrast dated 02/03/2023. Ultrasound abdomen complete dated 12/02/2022. Ultrasound abdomen limited dated 02/02/2022. KUBs dated 09/15/2017 and 02/03/2017. TECHNIQUE: Real-time imaging of the right upper quadrant abdominal viscera. FINDINGS: PANCREAS: Normal. LIVER: The liver is normal in size. The liver contour is normal. There is diffuse increased liver parenchymal echogenicity. No focal hepatic lesion. There is no intrahepatic biliary duct dilatation seen. GALLBLADDER: No polyp is presently noted. The gallbladder is physiologically distended. Multiple mobile gallstones are present. No evidence of gallbladder wall thickening or pericholecystic fluid. COMMON BILE DUCT: Normal in caliber measuring 0.37 cm in diameter. RIGHT KIDNEY: Normal. No hydronephrosis. No renal calculi or focal parenchymal lesions. The kidney measures 9.0 cm in maximum dimension. FREE FLUID: None. US/US abdomen limited IMPRESSION: 1. There is generalized increase in hepatic echotexture, consistent with fatty infiltration or hepatocellular disease. Please correlate clinically. No focal hepatic mass or intrahepatic biliary dilatation is seen. 2. There is cholelithiasis, without cholecystitis or choledocholithiasis.
== END 2023-02-17 07:50 | disposition home or self-care (01) ==
LOC: HO.US 07:49
PROVIDERS: PCP General Practice; Visit Provider Physician Assistant
DX: C54.1 Malignant neoplasm of endometrium (principal); R93.5 Abnormal findings on diagnostic imaging of other abdominal regions, including retroperitoneum
CPT/HCPCS: 76705

== ENCOUNTER 2023-03-18 07:48 | Outpatient (REF) | payer OTHER, SELFPAY | END 2023-03-18 07:49 | disposition home or self-care (01) | LOC: HO.US 07:48 | PROVIDERS: PCP General Practice; Visit Provider Physician Assistant | DX: Z13.89 Encounter for screening for other disorder (principal) ==

== ENCOUNTER 2023-04-06 11:40 | Outpatient (AMB) | payer OTHER, SELFPAY ==
--- NOTE | 2023-04-06 11:41 | A.OFFVIS_ITS ---
Intake Vital Signs 04/06/23 11:43 Height 4 ft 11 in BP 132/70 Blood Pressure Location Rt brachial Position Sitting Pulse 76 Pulse Source Pulse Oximeter Pulse Oximetry (%) 98 Oxygen Delivery Method Room Air Intake Visit Reasons: 2 mnts f/u appt for sleep Intake Note: Patient presents for 2 month follow up. Patient states Im using the machine. Allergies Penicillins [PENICILLINS] Allergy (Intermediate, Verified 04/06/23 11:43) HIVES fluticasone [From Advair Diskus] Allergy (Mild, Verified 04/06/23 11:43) Unknown potassium Allergy (Mild, Verified 04/06/23 11:43) Unknown salmeterol [From Advair Diskus] Allergy (Mild, Verified 04/06/23 11:43) Unknown HPI HPI Comments History of Present Illness Details 67 y/o female patient presents for follo w up of TERENCE on CPAP. Pt restart using CPAP. She uses nasal mask, and now she sleeps better with CPAP for 4-5 hrs at night. She feels refreshes in the morning and daytime sleepiness has improved. She is using nasal mask but wants to try full face mask. Her nasal mask causes her nose very dry. The CPAP compliance and therapy response (03/07/23-04/05/23) reviewed. She is on CPAP at [id number]. The usage days 100% and the average usage hours 5 hrs and 15 min. The AHI was 2/hr. [facility] Medical History Achilles tendinitis Bursitis of heel Diabetes mellitus Eczema GERD (gastroesophageal reflux disease) Hypercholesterolemia Hypertension Irritable bowel syndrome Juvenile xanthogranuloma Kidney stones Microscopic hematuria Osteoarthritis of left knee Osteoarthritis of right knee Pilar cysts Renal calculi Surgical History History of surgery Hx of total knee arthroplasty (~2017) History of tubal ligation Social History Household Members: None Alcohol intake: never Patient Tobacco Use Status: Never used Tobacco Current occupational status: disabled Female Reproductive History Menstrual Age of Menarche: 13 Review of Systems Const All systems reviewed & are unremarkable except as noted in HPI and below ENT Reports Normal hearing present Neuro Reports Normal hearing present Physical Exam Vital Signs: Last Vital Signs Pulse 76 04/06/23 11:43 BP 132/70 04/06/23 11:43 Pulse Ox 98 04/06/23 11:43 Oxygen Delivery Method Room Air 04/06/23 11:43 Const General: cooperative Nutritional Appearance: obese Orientation/consciousness: patient oriented x3 Limitations: language barrier Resp Effort & Inspection: normal respiratory effort and able to speak in complete sentences Neuro General: patient oriented x3 and moves all extremities Cranial nerves: Yes Normal facial strength present, Yes Midline tongue present, Yes Symmetric palate elevation present, Yes Normal hearing present, Yes Ability to bilaterally rotate head present and Yes Ability to bilaterally elevate shoulders present Cognition (Neuro): normal cognition Motor exam (neuro): 5/5 motor strength present throughout Psych Appearance: grossly normal Mental Status: mental status grossly normal Speech and movement: Normal speech and movement present Affect: normal affect Attitude: cooperative Assessment & Plan Assessment & Plan (1) TERENCE (obstructive sleep apnea): Comment: Severe degree of TERENCE with increased severity in REM. The total AHI was 24/hr, REM AHI was 39/hr with oxygen akila was 76% Code(s): G47.33 - Obstructive sleep apnea (adult) (pediatric) (2) Obesity: Code(s): E66.9 - Obesity, unspecified Plan Continue to use CPAP at [id number] as patient experiences good clinical effects, better quality sleep and daytime sleepiness has improved. New mask fitting prescription given to patient and she will go to [facility] for new mask fitting. Stressed compliance, use CPAP nightly and more than 4 hours. Wt reduction advised. Coding Level of Care Code Est Pt Level 3 (42540) Diagnoses TERENCE (obstructive sleep apnea) G47.33 Obesity E66.9
[2023-04-06 11:43] VITALS: BP 132/70; PULSE 76; O2SAT 98
== END 2023-04-06 11:55 | disposition home or self-care (01) ==
LOC: HO.HSMC 11:41
PROVIDERS: PCP General Practice; Visit Provider Nurse Practitioner Family
DX: G47.33 Obstructive sleep apnea (adult) (pediatric) (principal); E66.9 Obesity, unspecified
CPT/HCPCS: 99213

== ENCOUNTER → 2023-04-06 11:40 | Outpatient (BNVA) | payer OTHER, SELFPAY | PROVIDERS: PCP General Practice; Visit Provider Nurse Practitioner Family | DX: G47.33 Obstructive sleep apnea (adult) (pediatric) (principal); E66.9 Obesity, unspecified | CPT/HCPCS: 99212 ==

== ENCOUNTER 2023-04-15 13:13 | Outpatient (AMB) | payer OTHER, SELFPAY ==
--- NOTE | 2023-04-15 14:08 | MHC.OFFVIS ---
Intake Intake Visit Reasons: Newprob-Right knee pain Intake Note: Karon is a 67 year old female who presents today for a new problem visit with complaints of right knee pain. Hx of Left TKA in May of 2020. She is seen with Rheumatology who has provided Lidocaine patches and Gabapentin which have been managing her symptoms mildly. She reports pain is worse when she is going down the stairs. Allergies Penicillins [PENICILLINS] Allergy (Intermediate, Verified 04/15/23 14:32) HIVES fluticasone [From Advair Diskus] Allergy (Mild, Verified 04/15/23 14:32) Unknown potassium Allergy (Mild, Verified 04/15/23 14:32) Unknown salmeterol [From Advair Diskus] Allergy (Mild, Verified 04/15/23 14:32) Unknown Medication List - Last Reconciled 04/15/23 by Zuleyka Green RN albuterol sulfate 90 mcg/actuation (Ventolin HFA) 2 puffs PO Q4-6H PRN albuterol sulfate mg inhalation TID amlodipine 5 mg PO DAILY aspirin (Adult Low Dose Aspirin) 81 mg PO DAILY blood sugar diagnostic (FreeStyle Lite Strips) As directed calcium carbonate-vitamin D3 500 mg-5 mcg (200 unit) (Oyster Shell Calcium-Vitamin D3) 1 tab PO DAILY carvedilol 6.25 mg PO cholecalciferol (vitamin D3) 50 mcg PO DAILY dapagliflozin propanediol (Farxiga) 10 mg PO DAILY fluticasone propionate 220 mcg/actuation (Flovent HFA) 1 puff PO BID fluticasone propionate 50 mcg/actuation 2 sprays intranasal DAILY PRN gabapentin 100 mg PO BID irbesartan 300 mg PO DAILY isosorbide mononitrate ER 30 mg PO DAILY loratadine 10 mg PO DAILY metformin ER 1,000 mg PO nystatin 1 appl topical BID-TID omeprazole 40 mg (2 x 20 mg) PO DAILY rosuvastatin 10 mg PO DAILY HPI Newprob-Right knee pain HPI Details Karon is a 68 year old Diabetic woman who presents with complaints of right knee OA pain. She complains of pain with daily activity, worse with using stairs. She has been managing her pain with Gabapentin and lidocaine patches. She has a hx of left TKA in ~2016 [facility] Medical History Achilles tendinitis Bursitis of heel Diabetes mellitus Eczema GERD (gastroesophageal reflux disease) Hypercholesterolemia Hypertension Irritable bowel syndrome Juvenile xanthogranuloma Kidney stones Microscopic hematuria Osteoarthritis of left knee Osteoarthritis of right knee Pilar cysts Renal calculi Surgical History History of surgery Hx of total knee arthroplasty (~2017) History of tubal ligation Social History Household Members: None Alcohol intake: never Patient Tobacco Use Status: Never used Tobacco Current occupational status: disabled Female Reproductive History Menstrual Age of Menarche: 13 Review of Systems Const All systems reviewed & are unremarkable except as noted in HPI and below Physical Exam Const General: no acute distress, alert and awake Orientation/consciousness: patient oriented x3 HEENT Head: Yes normocephalic and Yes atraumatic Eyes EOM: EOMs intact bilaterally Resp Effort & Inspection: normal respiratory effort and able to speak in complete sentences Cardio Jugular venous distension: no JVD Skin General skin exam: turgor normal Rashes: no rashes Neuro General: patient oriented x3 Extrem Other: Right Knee: Medial joint line TTP 5-125 +gait antalgia Stable to v/v streess no effusion Psych Appearance: grossly normal Affect: normal affect Attitude: cooperative Office Procedures Joint Injection/Drain Joint Injection/Drain Details: Injected 1 mL of Decadron and 3 mL 1% lidocaine and 3 mL of 0.25% Marcaine. Site was prepped using aseptic technique. Patient tolerated the procedure well. Primary Site: right knee Approach Used: anterolateral Coding 54437 - Large joint Procedure code (CPT) selection complete Results Reviewed Results Reviewed: 04/15/23 14:38 BUPivacaine MPF 0.25 % [Sensorcaine-MPF 0.25% 10 ML] 10 ml .ROUTE .STK-MED ONE Lidocaine HCl 2 % MPF [Xylocaine 2 % MPF] 5 ml .ROUTE .STK-MED ONE dexAMETHasone sod phosphate [Decadron] 4 mg .ROUTE .STK-MED ONE Assessment & Plan Assessment & Plan (1) Osteoarthritis of right knee: Code(s): M17.11 - Unilateral primary osteoarthritis, right knee Plan: This is a 68 year old woman with right knee OA. She has pain with daily activity, worse with using stairs. I discussed her diagnosis and treatment options. I injected her right knee today, which she tolerated well. She can follow up prn. (2) Diabetes mellitus: Code(s): E11.9 - Type 2 diabetes mellitus without complications Plan: I discussed the hypergycemic effects of steroid injections. Plan Scribed for Robbie Craft MD by Kyle Doherty, medical administrative technician, on 04/15/23 at 2:40 PM, EST. Coding Level of Care Code Est Pt Level 4 (99265) Diagnoses Osteoarthritis of right knee M17.11 Diabetes mellitus E11.9 CPT Codes Coding - 82723 Large joint: 07612 - Large joint ([id number])
== END 2023-04-15 14:56 | disposition home or self-care (01) ==
PROVIDERS: PCP General Practice; Visit Provider Orthopaedic Surgery
DX: M17.11 Unilateral primary osteoarthritis, right knee (principal); E11.9 Type 2 diabetes mellitus without complications
CPT/HCPCS: 20610; 99214

== ENCOUNTER → 2023-04-15 13:13 | Outpatient (BNVA) | payer OTHER, SELFPAY | PROVIDERS: PCP General Practice; Visit Provider Orthopaedic Surgery | DX: M17.11 Unilateral primary osteoarthritis, right knee (principal); E11.9 Type 2 diabetes mellitus without complications | CPT/HCPCS: 20610; 99212; J1100 ==

== ENCOUNTER 2023-04-29 08:57 | Outpatient (AMB) | payer OTHER, SELFPAY ==
--- NOTE | 2023-04-29 09:13 | A.OFFVIS_ITS ---
Intake Vital Signs 04/29/23 09:18 Height 4 ft 11 in Weight 232 lb BMI 46.9 BP 136/74 Blood Pressure Location Lt brachial Position Sitting Pulse 74 Intake Visit Reasons: US Results Intake Note: Patient follow up for gallbladder polyps and US results. Patient cc: abdominal pain on and off with bloating, some swallowing problems. Denies any other GI issues. 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 Accompanied by: Self / Same As Patient Allergies Penicillins [PENICILLINS] Allergy (Intermediate, Verified 04/29/23 09:13) HIVES fluticasone [From Advair Diskus] Allergy (Mild, Verified 04/29/23 09:13) Unknown potassium Allergy (Mild, Verified 04/29/23 09:13) Unknown salmeterol [From Advair Diskus] Allergy (Mild, Verified 04/29/23 09:13) Unknown Medication List - Last Reconciled 04/29/23 by Adeline Painting PA-C albuterol sulfate 90 mcg/actuation (Ventolin HFA) 2 puffs PO Q4-6H PRN albuterol sulfate mg inhalation TID amlodipine 5 mg PO DAILY aspirin (Adult Low Dose Aspirin) 81 mg PO DAILY blood sugar diagnostic (FreeStyle Lite Strips) As directed calcium carbonate-vitamin D3 500 mg-5 mcg (200 unit) (Oyster Shell Calcium- Vitamin D3) 1 tab PO DAILY carvedilol 6.25 mg PO cholecalciferol (vitamin D3) 50 mcg PO DAILY dapagliflozin propanediol (Farxiga) 10 mg PO DAILY fluticasone propionate 220 mcg/actuation (Flovent HFA) 1 puff PO BID fluticasone propionate 50 mcg/actuation 2 sprays intranasal DAILY PRN gabapentin 100 mg PO BID irbesartan 300 mg PO DAILY isosorbide mononitrate ER 30 mg PO DAILY loratadine 10 mg PO DAILY metformin ER 1,000 mg PO nystatin 1 appl topical BID-TID omeprazole 40 mg (2 x 20 mg) PO DAILY rosuvastatin 10 mg PO DAILY HPI HPI Comments History of Present Illness Details 67-year-old female with chronic abdomina l pain associated to GI symptoms. She was somewhat difficult to assess likely be musculoskeletal however she may have overlapping issues. History kidney stones nonobstructive When she was seen last sent for blood work She had CBC to assess for white count elevation-was normal. She says she has continued upper abdominal pain-comes and goes-LUQ, wanders- somewhat of vague-she has a normal appetite Reflux comes in go Was seen by Dr. Infante 01/2022- cholelithiasis, no surgical intervention recommended She has no nausea, vomiting, hematemesis, hematochezia fever or chills. She has no weight loss [facility] Medical History (Updated 04/29/23 @ 12:21 by Adeline Painting PA-C) Renal calculi Irritable bowel syndrome Microscopic hematuria Eczema GERD (gastroesophageal reflux disease) Bursitis of heel Achilles tendinitis Juvenile xanthogranuloma Pilar cysts Hypercholesterolemia Kidney stones Osteoarthritis of right knee Osteoarthritis of left knee Hypertension Diabetes mellitus Surgical History History of surgery Hx of total knee arthroplasty (~2017) History of tubal ligation Social History Household Members: None Alcohol intake: never Patient Tobacco Use Status: Never used Tobacco Current occupational status: disabled Female Reproductive History Menstrual Age of Menarche: 13 Physical Exam Vital Signs: Last Vital Signs Pulse 74 04/29/23 09:18 BP 136/74 04/29/23 09:18 BMI result Body Mass Index 46.9 Const General: cooperative, healthy appearing, comfortable and no acute distress Orientation/consciousness: patient oriented x3 Limitations: language barrier and ambulation with cane Eyes Sclerae: sclerae normal Resp Effort & Inspection: normal respiratory effort and able to speak in complete sentences GI Palpation (GI): Soft to palpation and nontender Skin General skin exam: no rashes or lesions noted Neuro General: patient oriented x3 Psych Affect: normal affect Attitude: cooperative Thought process: Normal thought process present Thought content: Normal thought content present Insight: Good insight present (Psych) Judgement: Good judgement present (Psych) Results Reviewed Results Reviewed: US/US abdomen limited IMPRESSION: 1. There is generalized increase in hepatic echotexture, consistent with fatty infiltration or hepatocellular disease. Please correlate clinically. No focal hepatic mass or intrahepatic biliary dilatation is seen. 2. There is cholelithiasis, without cholecystitis or choledocholithiasis. Assessment & Plan Assessment & Plan (1) Irritable bowel syndrome: Comment: Very good spirits today- Code(s): K58.9 - Irritable bowel syndrome without diarrhea Plan: Continue usual medications (2) Chronic generalized abdominal pain: Comment: Chronic generalized abdominal pain- body habitus-may likely play a role May be musculoskeletal Reviewed labs, ultrasound Much better spirits today-very vague complaint Prefers to call if needs appointment (typically requests a follow-up)- Code(s): R10.84 - Generalized abdominal pain; G89.29 - Other chronic pain Plan Continue usual medications Reflux precautions reviewed Avoid culprits Encouraged to call questions or concerns Patient Instructions: Continue usual medications Reflux precautions reviewed Avoid culprits Encouraged to call questions or concerns Coding Level of Care Code Est Pt Level 3 (09034) Diagnoses Irritable bowel syndrome K58.9 Chronic generalized abdominal pain R10.84; G89.29 Time Spent (min) 30 Comment [id number]
[2023-04-29 09:18] VITALS: BP 136/74; PULSE 74; BMI 46.9
== END 2023-04-29 10:41 | disposition home or self-care (01) ==
PROVIDERS: PCP General Practice; Visit Provider Physician Assistant
DX: K58.9 Irritable bowel syndrome, unspecified (principal); R10.84 Generalized abdominal pain; G89.29 Other chronic pain
CPT/HCPCS: 99213

== ENCOUNTER → 2023-04-29 08:57 | Outpatient (BNVA) | payer OTHER, SELFPAY | PROVIDERS: PCP General Practice; Visit Provider Physician Assistant | DX: K58.9 Irritable bowel syndrome, unspecified (principal); R10.84 Generalized abdominal pain; G89.29 Other chronic pain | CPT/HCPCS: 99212 ==

== ENCOUNTER 2023-06-12 22:24 | Emergency (ER) | payer OTHER, SELFPAY ==
--- NOTE | ~2023-06-12 | XR_ITS ---
EXAMINATION: XR KNEE, RIGHT CLINICAL INFORMATION: Right knee pain COMPARISON: None available. TECHNIQUE: Four views of the right knee. FINDINGS: Medial compartment: Marked joint space narrowing, moderate subchondral sclerosis, moderate osteophytosis. Lateral compartment: Mild osteophytosis. Patellofemoral compartment: Moderate osteophytosis. No gross joint effusion. Mild scattered atherosclerotic vascular calcifications. Mild enthesopathic changes at the patellar insertion upon the tibial tubercle. No fractures visualized. XR/XR knee RT 3V IMPRESSION: Tricompartmental osteoarthritis with findings most pronounced in the medial compartment.
[2023-06-12 22:36] VITALS: BP 176/82; PULSE 93; RESP 17; TEMP 36.5; O2SAT 99
[2023-06-12 22:41] VITALS: BP 172/88; PULSE 80
[2023-06-12 22:43] LABS: Glucose, Whole Blood 217 mg/dL (60-115)
[2023-06-12 22:55] VITALS: BP 176/82; PULSE 93; RESP 20; TEMP 36.5; O2SAT 100; BMI 47.5
--- NOTE | 2023-06-12 23:55 | ED.GENADULT ---
HPI - General Adult General Chief complaint: Extremity Problem Stated complaint: RT Knee Pain Time Seen by Provider: 06/12/23 23:26 Source: patient, RN notes reviewed and old records reviewed Mode of arrival: ambulatory Limitations: language barrier (daughter as vice president quality assurance) History of Present Illness HPI narrative: 68-year-old female presents for evaluation of right knee pain. Patient has a history of severe osteoarthritis and usually manages with Tylenol Patient states that while walking today she felt ?my right leg gave out. ? She was able to support herself and did not fall She is able to walk back to her car and go home Later in the day when the patient's son took her out she was unable to walk due to the pain prompting her to call an ambulance to come to the hospital Patient has a history of a left-sided knee replacement She complains of 10/10 pain to the right knee Denies any ankle or hip pain Denies any back pain Related Data Home Medications Medication Instructions Recorded Confirmed amlodipine 5 mg tablet 5 mg PO DAILY 05/02/20 04/15/23 aspirin 81 mg tablet,delayed 81 mg PO DAILY 05/02/20 04/15/23 release (Adult Low Dose Aspirin) cholecalciferol (vitamin D3) 50 50 mcg PO DAILY 05/02/20 04/15/23 mcg (2,000 unit) capsule gabapentin 100 mg capsule 100 mg PO BID 05/02/20 04/15/23 irbesartan 300 mg tablet 300 mg PO DAILY 05/02/20 04/15/23 isosorbide mononitrate 30 mg 30 mg PO DAILY 05/02/20 04/15/23 tablet,extended release 24 hr rosuvastatin 10 mg tablet 10 mg PO DAILY 05/02/20 04/15/23 albuterol sulfate 90 mcg/actuation 2 puff PO Q4-6H PRN Wheezing 04/25/21 04/15/23 aerosol inhaler (Ventolin HFA) calcium carbonate 500 mg-vitamin 1 tab PO DAILY 04/25/21 04/15/23 D3 5 mcg (200 unit) tablet (Oyster Shell Calcium-Vitamin D3) fluticasone propionate 220 1 puff PO BID 04/25/21 04/15/23 mcg/actuation HFA aerosol inhaler (Flovent HFA) fluticasone propionate 50 2 spray intranasal DAILY PRN 04/25/21 04/15/23 mcg/actuation nasal Allergy Symptoms spray,suspension dapagliflozin propanediol 10 mg 10 mg PO DAILY 08/07/21 04/15/23 tablet (Farxiga) carvedilol 6.25 mg tablet 6.25 mg PO 12/12/21 04/15/23 metformin 500 mg tablet,extended 1,000 mg PO 03/09/22 04/15/23 release 24 hr nystatin 100,000 unit/gram topical 1 appl topical BID-TID 03/09/22 04/15/23 powder albuterol sulfate 2.5 mg/3 mL mg inhalation TID 08/10/22 04/15/23 (0.083 %) solution for nebulization blood sugar diagnostic (FreeStyle #10 ea 08/10/22 04/15/23 Lite Strips) loratadine 10 mg tablet 10 mg PO DAILY 08/10/22 04/15/23 Previous Rx's Medication Instructions Recorded omeprazole 20 mg capsule,delayed 40 mg (2 x 20 mg) PO DAILY #60 caps 02/18/23 release oxycodone 5 mg tablet 5 mg PO Q6H PRN severe pain (scale 06/13/23 score 7-10) #14 tabs Allergies Allergy/AdvReac Type Severity Reaction Status Date / Time Penicillins [PENICILLINS] Allergy Intermediate HIVES Verified 06/12/23 22:55 fluticasone Allergy Mild Unknown Verified 06/12/23 22:55 [From Advair Diskus] potassium Allergy Mild Unknown Verified 06/12/23 22:55 salmeterol Allergy Mild Unknown Verified 06/12/23 22:55 [From Advair Diskus] Review of Systems Constitutional: Constitutional: Denies chills, Denies fever(s) and Denies frequent falls Eyes: Eyes: Denies blurry vision Cardiovascular: Cardiovascular: Denies chest pain and Denies dyspnea Respiratory: Respiratory: Denies cough and Denies dyspnea Gastrointestinal: Gastrointestinal: Denies abdominal pain, Denies nausea and Denies vomiting Musculoskeletal: Musculoskeletal: Denies back pain, Reports arthralgias, Reports joint swelling and Reports limited range of motion Integumentary/Breasts: Skin/Breast: Denies rash Neurologic: Denies frequent falls PMFSH Past Medical History Medical History Renal calculi Irritable bowel syndrome Microscopic hematuria Eczema GERD (gastroesophageal reflux disease) Bursitis of heel Achilles tendinitis Juvenile xanthogranuloma Pilar cysts Hypercholesterolemia Kidney stones Osteoarthritis of right knee Osteoarthritis of left knee Hypertension Diabetes mellitus Surgical History History of surgery Hx of total knee arthroplasty (~2017) History of tubal ligation Social History Social History Household Members: None Alcohol intake: never Patient Tobacco Use Status: Never used Tobacco Advance Directives: No Advance Directives Information Provided: No Current occupational status: disabled Physical Exam ED Vital Signs: Vital Signs - 24 hr 06/12/23 22:36 06/12/23 22:55 06/13/23 00:41 Temperature 97.7 F 97.7 F 97.9 F Pulse Rate 93 93 77 Respiratory Rate 17 20 18 Blood Pressure 176/82 H 176/82 H 176/66 H Pulse Oximetry 99 100 96 Oxygen Delivery Method Room Air Room Air Room Air BMI result Body Mass Index 47.5 Const General: healthy appearing, comfortable, no acute distress, alert and awake Nutritional Appearance: well nourished and obese morbidly obese Orientation/consciousness: patient oriented x3 HENMT Head: Yes normocephalic and Yes atraumatic Eyes Eyelids: Yes eyelids normal Conjunctivae: conjunctivae normal Sclerae: sclerae normal Corneas: corneas normal Pupils: Equal, round and reactive pupils present EOM: EOMs intact bilaterally Neck Neck: Yes full ROM Resp Effort & Inspection: normal respiratory effort, able to speak in complete sentences and not labored GI Inspection: No distended Palpation (GI): Soft to palpation, not firm, nontender, no guarding and not rigid Skin General skin exam: elasticity normal Neuro General: patient oriented x3 Cranial nerves: Yes Equal, round and reactive pupils present and Yes Bilaterally intact EOM present Cognition (Neuro): normal cognition Extrem Other: Patient is nontender to palpation the right knee. She has pain to the infrapatellar region with passive range of motion of the right knee. No tenderness with relation of the right hip Course Reevaluation(s) Reevaluation #1: Patient able to the ambulate after analgesia. Will discharge the patient home oxycodone. The patient's daughter and patient are comfortable being discharged home. Will given orthopedic referral for the severe osteoarthritis Time: 01:03 Medications Administered Discontinued Medications Generic Name Dose Route Start Last Admin Trade Name Tish PRN Reason Stop Dose Admin Morphine Sulfate 4 mg 06/12/23 23:44 06/13/23 00:04 Morphine Sulfate 4 Mg/Ml Cartridge IM 06/12/23 23:45 4 mg ONCE ONE Administration Protocol Ondansetron HCl 4 mg 06/12/23 23:44 06/13/23 00:04 Ondansetron Odt 4 Mg Tab.Rapdis TRANSLINGU 06/12/23 23:45 4 mg ONCE ONE Administration Medical Decision Making Medical Decision Making MDM Narrative: 68-year-old female presents for evaluation of right knee pain. There was no specific injury but she felt as if the right knee was weaker. She did not fall to the ground. She does not use a cane or walker. Denies any posterior calf pain. Patient likely has acute on chronic right knee pain x-ray shows severe tricompartmental arthritis. Patient will likely require orthopedic referral and possibly knee replacement. Will treat her discomfort with morphine and re-evaluate. If she cannot walk so likely require a case management/PT evaluation in the morning Differential Diagnosis Differential Diagnoses: The differential diagnosis associated with the presentation includes Acute on chronic knee pain Osteoarthritis Knee pain Suprapatellar effusion Esparza's cyst DVT less likely Lab Data Labs: Lab Results 06/12/23 Range/Units 22:39 POC Glucose 217 H (60-115) mg/dL Independent Interpretation I performed an independent interpretation of an: Plain X-Ray (Osteoarthritis, worst in the lateral side of the knee.) Radiology Impression Discussion of test interpretation with radiology: I have reviewed the radiologist's reading. (Tricompartmental osteoarthritis with findings most pronounced in the medial compartment) Discharge Plan Discharge Clinical Impression: Knee pain, right, Osteoarthritis Patient Disposition: Home, Self-Care Instructions: Osteoarthritis (ED) Additional Instructions: Your x-ray shows severe osteoarthritis of the right knee You may take all of your home medications as prescribed Take oxycodone as needed for severe, breakthrough pain This may make you sleepy, do not drink alcohol or drive after taking Follow-up with your primary doctor as well as Orthopedics Prescriptions: New oxycodone 5 mg tablet 5 mg PO Q6H PRN (Reason: severe pain (scale score 7-10)) Qty: 14 0RF Rx Instructions: Partial Fill upon patient request. No Action omeprazole 20 mg capsule,delayed release(DR/EC) 40 mg PO DAILY Qty: 60 5RF Flovent HFA 220 mcg/actuation HFA aerosol inhaler 1 puff PO BID albuterol sulfate [Ventolin HFA] 90 mcg/actuation HFA aerosol inhaler 2 puff PO Q4-6H PRN (Reason: Wheezing) fluticasone propionate 50 mcg/actuation spray,suspension 2 spray intranasal DAILY PRN (Reason: Allergy Symptoms) calcium carbonate-vitamin D3 [Oyster Shell Calcium-Vit D3] 500 mg(1,250mg) -200 unit tablet 1 tab PO DAILY gabapentin 100 mg capsule 100 mg PO BID rosuvastatin 10 mg tablet 10 mg PO DAILY aspirin [Adult Low Dose Aspirin] 81 mg tablet,delayed release (DR/EC) 81 mg PO DAILY amlodipine 5 mg tablet 5 mg PO DAILY cholecalciferol (vitamin D3) 50 mcg (2,000 unit) capsule 50 mcg PO DAILY isosorbide mononitrate 30 mg tablet extended release 24 hr 30 mg PO DAILY irbesartan 300 mg tablet 300 mg PO DAILY Farxiga 10 mg tablet 10 mg PO DAILY nystatin 100,000 unit/gram powder 1 appl topical BID-TID metformin 500 mg tablet extended release 24 hr 1,000 mg PO (DME) FreeStyle Lite Strips Strip See Rx Instructions .ROUTE BID Qty: 10 Rx Instructions: As directed albuterol sulfate 2.5 mg /3 mL (0.083 %) solution for nebulization inhalation TID loratadine 10 mg tablet 10 mg PO DAILY carvedilol 6.25 mg tablet 6.25 mg PO
[2023-06-13] MEDS: Morphine Sulfate 4 MG/ML CARTRIDGE IM (00:04)
[2023-06-13] MEDS: Ondansetron ODT 4 MG TAB.RAPDIS TRANSLINGU (00:04)
[2023-06-13 00:41] VITALS: BP 176/66; PULSE 77; RESP 18; TEMP 36.6; O2SAT 96
== END 2023-06-13 01:33 | disposition home or self-care (01) ==
PROVIDERS: Emergency Provider Internal Medicine
DX: M25.561 Pain in right knee (principal); M17.11 Unilateral primary osteoarthritis, right knee; E11.9 Type 2 diabetes mellitus without complications; I10 Essential (primary) hypertension; E78.00 Pure hypercholesterolemia, unspecified; Z79.82 Long term (current) use of aspirin; Z79.02 Long term (current) use of antithrombotics/antiplatelets; Z79.899 Other long term (current) drug therapy; Z79.84 Long term (current) use of oral hypoglycemic drugs
CPT/HCPCS: 73562; 82947; 96372; 99284; J2270

== ENCOUNTER 2023-06-15 07:31 | Outpatient (REF) | payer OTHER, SELFPAY ==
--- NOTE | ~2023-06-15 | US_ITS ---
EXAMINATION: US RETROPERITONEAL LIMITED (RENAL ONLY) CLINICAL INFORMATION: Calculus of kidney. COMPARISON: Ultrasound abdomen limited 02/17/2023. CT abdomen and pelvis 02/03/2023. Ultrasound bladder 12/09/2022. X-ray KUB 09/15/2017 and 02/03/2017. TECHNIQUE: Real-time imaging of the kidneys. FINDINGS: RIGHT KIDNEY: 9.4 x 4.0 x 4.2 cm (SAG x AP x TRV). The kidney is normal in size, contour, and echogenicity. Renal cortical thickness is normal. No focal parenchymal lesions or hydronephrosis. At the lower pole, a 7 mm nonobstructing calculus is seen. LEFT KIDNEY: 12.4 x 5.0 x 4.4 cm (SAG x AP x TRV). The kidney is normal in size, contour, and echogenicity. Renal cortical thickness is normal. No calculi or focal parenchymal lesions. No hydronephrosis. US/US renal BI IMPRESSION: A 7 mm nonobstructing right renal calculus is seen. No definite left renal calculus is seen. No hydronephrosis is noted bilaterally.
== END 2023-06-15 07:32 | disposition home or self-care (01) ==
LOC: HO.US 07:31
PROVIDERS: PCP General Practice; Visit Provider Nurse Practitioner Family
DX: N20.0 Calculus of kidney (principal)
CPT/HCPCS: 76775

== ENCOUNTER 2023-06-18 10:02 | Outpatient (REF) | payer OTHER, SELFPAY ==
[2023-06-18 12:18] LABS: MANUAL DIFF FLAG NO
[2023-06-18 12:35] LABS: Basophils Percent Auto 0.4 % (0-2); Eosinophils Absolute Auto 0.1 X10*3/uL (0.0-0.4); Eosinophils Percent Auto 1.3 % (0-4); Hematocrit 39.2 % (37.0-47.0); Hemoglobin 12.5 g/dl (12.0-16.0); Imm Gran Abs Auto 0.03 X10*3/uL (0.00-0.03); Imm Gran Pct Auto 0.3 % (0.0-0.4); Lymphocytes Percent Auto 22.5 % (20-40); Mean Corpuscular HGB Conc 31.9 g/dl (31.0-35.0); Mean Corpuscular Hemoglobin 26.5 pg (27.0-33.0); Mean Corpuscular Volume 83.1 fL (80.0-98.0); Mean Platelet Volume 12.7 fL (9.4-12.3); Monocytes Absolute Auto 0.5 X10*3/uL (0.1-1.2); Monocytes Percent Auto 5.2 % (2-11); Neutrophils Absolute Auto 6.3 x10*3/uL (2.0-8.3); Neutrophils Percent Auto 70.3 % (45-73); Platelet Count 284 X10*3/uL (160-400); Red Blood Count 4.72 X10*6/uL (4.20-5.50); Red Cell Distribution Width 13.9 % (11.0-16.0)
[2023-06-18 12:58] LABS: Alanine Aminotransferase 34 U/L (0-31); Albumin Level 4.3 g/dL (3.5-5.0); Alkaline Phosphatase 114 U/L (39-117); Anion Gap 13 (12-20); Aspartate Amino Transferase 25 U/L (5-31); Bilirubin Total 0.5 mg/dL (0.0-1.0); Blood Urea Nitrogen 19 mg/dL (9-16); Calcium 10.3 mg/dL (8.4-10.2); Carbon Dioxide 27 mmol/L (22-29); Chloride 106 mmol/L (96-108); Cholesterol 219 mg/dL (<200); Estimated Glomerular Filt Rate > 60; Glucose Random 175 mg/dL (60-115); HDL Cholesterol 42 mg/dL (>40); LDL Cholesterol Calculated 130 mg/dL (<100); Potassium 4.4 mmol/L (3.3-5.1); Sodium 142 mmol/L (135-145); Total Protein 7.7 g/dL (6.5-8.0); Triglycerides 239 mg/dL (<150)
== END 2023-06-18 10:03 | disposition home or self-care (01) ==
LOC: HO.HHCL 10:02
PROVIDERS: Visit Provider General Practice
DX: E11.40 Type 2 diabetes mellitus with diabetic neuropathy, unspecified (principal)
CPT/HCPCS: 36415; 80053; 80061; 85025

== ENCOUNTER → 2023-06-24 13:33 | Outpatient (BNVA) | payer OTHER, SELFPAY | PROVIDERS: Visit Provider Orthopaedic Surgery ==

== ENCOUNTER 2023-06-28 09:48 | Outpatient (AMB) | payer OTHER, SELFPAY ==
--- NOTE | 2023-06-28 10:11 | A.OFFVIS_ITS ---
Intake Intake Visit Reasons: 6m follow up/US(set) Intake Note: Patient is present for follow up kidney stone( imaging 06/15/23) Urology Medications: none Blood Thinner: aspirin Hematology Nurse Required: Yes Accompanied by: Son Allergies Penicillins [PENICILLINS] Allergy (Intermediate, Verified 06/28/23 10:59) HIVES fluticasone [From Advair Diskus] Allergy (Mild, Verified 06/28/23 10:59) Unknown potassium Allergy (Mild, Verified 06/28/23 10:59) Unknown salmeterol [From Advair Diskus] Allergy (Mild, Verified 06/28/23 10:59) Unknown Medication List - Last Reconciled 06/28/23 by DALI Graham-FABIOLA albuterol sulfate 90 mcg/actuation (Ventolin HFA) 2 puffs PO Q4-6H PRN albuterol sulfate mg inhalation TID amlodipine 5 mg PO DAILY aspirin (Adult Low Dose Aspirin) 81 mg PO DAILY blood sugar diagnostic (FreeStyle Lite Strips) As directed calcium carbonate-vitamin D3 500 mg-5 mcg (200 unit) (Oyster Shell Calcium- Vitamin D3) 1 tab PO DAILY carvedilol 6.25 mg PO cholecalciferol (vitamin D3) 50 mcg PO DAILY dapagliflozin propanediol (Farxiga) 10 mg PO DAILY fluticasone propionate 220 mcg/actuation (Flovent HFA) 1 puff PO BID fluticasone propionate 50 mcg/actuation 2 sprays intranasal DAILY PRN gabapentin 100 mg PO BID irbesartan 300 mg PO DAILY isosorbide mononitrate ER 30 mg PO DAILY loratadine 10 mg PO DAILY metformin ER 1,000 mg PO nystatin 1 appl topical BID-TID omeprazole 40 mg (2 x 20 mg) PO DAILY oxycodone 5 mg PO Q6H PRN pyridoxine (vitamin B6) mg PO DAILY rosuvastatin 10 mg PO DAILY HPI HPI Comments History of Present Illness Details Karon is a pleasant 68 year old Wallisian speaking patient of Dr. Nieves who is accompanied her son at todays office visit. The patients son is interpreting as requested by patient request. Interpreting services offered however declined. She has a past medical history of irritable bowel syndrome, TERENCE, obesity, GERD, nephrolithiasis, osteoarthritis, non alcoholic fatty liver disease, diverticulosis, and type 2 DM. She presents to the office today for a follow up of her nephrolthiaisis. Recent renal imaging results reviewed with the patient and her son today. Right kidney with no lesions and or hydronephrosis. At the lower pole, a 7 mm nonobstructing calculus is seen. Left kidney with no calculi, lesions, and or hydronephrosis. When asked she reports to be doing and feeling well. She denies any bothersome urinary issues or concerns. She does report urinary frequency, urinary urgency and episodes of incontinence if not near a bathroom however does not find this bothersome. When asked she denies urinary urgency, urinary frequency, incontinence, nocturia, hematuria, dysuria, foul smelling urine, changes to urinary stream, flank pain, fever, and or chills. She is happy with her current voiding parameters. Discussed importance of managing diabetes for improvement in urinary symptoms as well as overall health and well-being. Discussed and stressed the importance of drinking plenty of water daily. She otherwise offers no issues or concerns at this time. [facility] Medical History Renal calculi Irritable bowel syndrome Microscopic hematuria Eczema GERD (gastroesophageal reflux disease) Bursitis of heel Achilles tendinitis Juvenile xanthogranuloma Pilar cysts Hypercholesterolemia Kidney stones Osteoarthritis of right knee Osteoarthritis of left knee Hypertension Diabetes mellitus Surgical History History of surgery Hx of total knee arthroplasty (~2017) History of tubal ligation Social History Household Members: None Alcohol intake: never Patient Tobacco Use Status: Never used Tobacco Current occupational status: disabled Female Reproductive History Menstrual Age of Menarche: 13 Review of Systems Const Reports as per HPI Eyes Reports no additional complaints ENT Reports no additional complaints Card Reports no additional complaints Resp Reports no additional complaints GI Reports no additional complaints Reports as per HPI Musc Reports no additional complaints Neuro Reports no additional complaints Psych Reports no additional complaints Endo Reports no additional complaints Óscar/Lymph Reports no additional complaints Aller/Immun Reports no additional complaints Physical Exam Const General: cooperative, comfortable, no acute distress, well developed, alert and awake Nutritional Appearance: overweight Orientation/consciousness: patient oriented x3 Limitations: ambulation with cane HEENT Head: Yes normal to inspection, Yes normocephalic and Yes atraumatic Ears: hearing grossly normal bilaterally Eyes General: appearance normal, both eyes and all related structures Neck Neck: Yes normal visual inspection and Yes trachea midline Chest Chest palpation & inspection: normal inspection of the chest Resp Effort & Inspection: normal respiratory effort and able to speak in complete sentences Cardio Rate: regular rate Skin General skin exam: no rashes or lesions noted Neuro General: patient oriented x3 Extrem General: Yes normal to inspection Psych Appearance: grossly normal and well kempt Mental Status: mental status grossly normal Speech and movement: Normal speech and movement present and Clear speech present Affect: normal affect Attitude: cooperative Thought process: Normal thought process present Thought content: Normal thought content present Insight: Fair insight present (Psych) Judgement: Fair judgement present (Psych) Results AMB Urinalysis, Automated UA Leukoctes 15 Cindy/uL Last Edit by [email or web address] on 06/28/23 10:31 UA Nitrite Negative Last Edit by [email or web address] on 06/28/23 10:31 UA Urobilinogen 0.2 mg/dL Last Edit by [email or web address] on 06/28/23 10:31 UA Protein 30 mg/dL Last Edit by [email or web address] on 06/28/23 10:31 UA pH 5.5 Last Edit by [email or web address] on 06/28/23 10:31 UA Blood 0 Bridger/uL Last Edit by [email or web address] on 06/28/23 10:31 UA Specific [place] 1.030 Last Edit by [email or web address] on 06/28/23 10:31 UA Ketone Negative Last Edit by [email or web address] on 06/28/23 10:31 UA Bilirubin 0 mg/dL Last Edit by [email or web address] on 06/28/23 10:31 UA Glucose 0 mg/dL Last Edit by [email or web address] on 06/28/23 10:31 Results Reviewed Results Reviewed: Laboratory Last Values Urine pH (Auto) 5.5 06/28/23 10:14 Specific [place] (Auto) 1.030 06/28/23 10:14 Urine Protein (Auto) 30 mg/dL 06/28/23 10:14 Glucose (UA)(Auto) 0 mg/dL 06/28/23 10:14 Urine Ketones (Auto) Negative 06/28/23 10:14 Urine Blood (Auto) 0 Bridger/uL 06/28/23 10:14 Urine Nitrite (Auto) Negative 06/28/23 10:14 Urine Bilirubin (Auto) 0 mg/dL 06/28/23 10:14 Urine Urobilinogen (Auto) 0.2 mg/dL 06/28/23 10:14 Leukocyte Esterase (Auto) 15 Cindy/uL 06/28/23 10:14 Date of Service: 06/15/23 EXAMINATION: US RETROPERITONEAL LIMITED (RENAL ONLY) FINDINGS: RIGHT KIDNEY: 9.4 x 4.0 x 4.2 cm (SAG x AP x TRV). The kidney is normal in size, contour, and echogenicity. Renal cortical thickness is normal. No focal parenchymal lesions or hydronephrosis. At the lower pole, a 7 mm nonobstructing calculus is seen. LEFT KIDNEY: 12.4 x 5.0 x 4.4 cm (SAG x AP x TRV). The kidney is normal in size, contour, and echogenicity. Renal cortical thickness is normal. No calculi or focal parenchymal lesions. No hydronephrosis. IMPRESSION: A 7 mm nonobstructing right renal calculus is seen. No definite left renal calculus is seen. No hydronephrosis is noted bilaterally. Assessment & Plan Assessment & Plan (1) Renal calculi: Code(s): N20.0 - Calculus of kidney Plan In office urinalysis results reviewed with the patient and her son today; as noted above Recent renal ultrasound results reviewed with the patient and her son today; as noted above Patient denies any bothersome urinary issues or concerns at this time She is happy with her current voiding parameters Will obtain KUB in 3 months Continue Vitamin B6 as discussed and prescribed. Educated, encouraged, and instructed to drink plently of water daily Discussed adding one ounce of lemon juice to the water daily. Follow up in 3 months with imaging to be completed prior; or sooner with any issues, concerns, or questions. Orders: Orders AMB Urinalysis Automated Today Z13.9 - Encounter for screening, unspecified XR KUB 3 Months N20.0 - Calculus of kidney Patient Instructions: The patient had an opportunity to ask questions regarding the treatment plan. All questions were answered. Physical exam, labs, and imaging were discussed and reviewed in detail. As well as risks, benefits, and discussion of treatment choices. No major barriers to understanding were identified. The patient expressed understanding and agreement with the above treatment plan. The patient was made aware they should contact our office by phone for worsening of their current condition, the appearance of new symptoms, or with any questions or concerns. Compliance is encouraged with any medications and follow up testing that is ordered. It is a privilege to be allowed the opportunity to participate in? your urological care.? Again, if you have any questions or concerns If you have any questions or concerns please do not hesitate to contact me. The office is [phone]. This note is constructed using voice recognition software. While every effort has been made to ensure accuracy embedder errors may have been included. Yours sincerely, MOSES Graham Coding Level of Care Code Est Pt Level 3 (83670) Diagnoses Renal calculi N20.0
== END 2023-06-28 11:33 | disposition home or self-care (01) ==
PROVIDERS: PCP Pediatrics; Visit Provider Nurse Practitioner Family
DX: Z13.9 Encounter for screening, unspecified (principal); N20.0 Calculus of kidney
CPT/HCPCS: 99213

== ENCOUNTER → 2023-06-28 09:48 | Outpatient (BNVA) | payer OTHER, SELFPAY | PROVIDERS: PCP Pediatrics; Visit Provider Nurse Practitioner Family | DX: M17.11 Unilateral primary osteoarthritis, right knee (principal); N20.0 Calculus of kidney | CPT/HCPCS: 81003; 99212 ==

== ENCOUNTER 2023-06-28 13:32 | Outpatient (AMB) | payer OTHER, SELFPAY ==
--- NOTE | 2023-06-28 13:53 | A.OFFVIS_ITS ---
Intake Vital Signs 06/28/23 13:54 Height 4 ft 11 in Weight 135 lb BMI 27.3 Intake Visit Reasons: OV- Right knee pain Intake Note: Karon is a 68 year old male who presents today for a follow up of her right knee pain. Last injection 04/15/23. Patient reports that this injection was only a little helpful. She is interested in talking about other treatment options. Allergies Penicillins [PENICILLINS] Allergy (Intermediate, Verified 07/08/23 13:12) HIVES fluticasone [From Advair Diskus] Allergy (Mild, Verified 07/08/23 13:12) Unknown potassium Allergy (Mild, Verified 07/08/23 13:12) Unknown salmeterol [From Advair Diskus] Allergy (Mild, Verified 07/08/23 13:12) Unknown HPI OV- Right knee pain HPI Details Karon is a 68 year old Diabetic woman who presents to discuss her right knee pain. She has a hx of right knee OA and a left TKA. She complains of pain with daily activity, worse with walking or using stairs. She was recently seen in the ED for right knee pain & weakness, reporting her knee gave way on her while out walking. She denies any falls, and denies the use of any assistive devices. She manages her pain with Tylenol, and was given Oxycodone at the ED on 06/12/23. [facility] Medical History Renal calculi Irritable bowel syndrome Microscopic hematuria Eczema GERD (gastroesophageal reflux disease) Bursitis of heel Achilles tendinitis Juvenile xanthogranuloma Pilar cysts Hypercholesterolemia Kidney stones Osteoarthritis of right knee Osteoarthritis of left knee Hypertension Diabetes mellitus Surgical History History of surgery Hx of total knee arthroplasty (~2017) History of tubal ligation Social History Household Members: None Alcohol intake: never Patient Tobacco Use Status: Never used Tobacco Current occupational status: disabled Female Reproductive History Menstrual Age of Menarche: 13 Review of Systems Const All systems reviewed & are unremarkable except as noted in HPI and below Physical Exam Vital Signs: BMI result Body Mass Index 27.3 Const General: no acute distress, alert and awake Orientation/consciousness: patient oriented x3 HEENT Head: Yes normocephalic and Yes atraumatic Eyes EOM: EOMs intact bilaterally Resp Effort & Inspection: normal respiratory effort and able to speak in complete sentences Cardio Jugular venous distension: no JVD Skin General skin exam: turgor normal Rashes: no rashes Neuro General: patient oriented x3 Extrem Other: TTP medial joint line Psych Appearance: grossly normal Affect: normal affect Attitude: cooperative Results AMB Urinalysis, Automated UA Leukoctes 15 Cindy/uL Last Edit by [employer] on 06/28/23 10:31 UA Nitrite Negative Last Edit by [employer] on 06/28/23 10:31 UA Urobilinogen 0.2 mg/dL Last Edit by [employer] on 06/28/23 10:31 UA Protein 30 mg/dL Last Edit by [employer] on 06/28/23 10:31 UA pH 5.5 Last Edit by [employer] on 06/28/23 10:31 UA Blood 0 Bridger/uL Last Edit by [employer] on 06/28/23 10:31 UA Specific [place] 1.030 Last Edit by [employer] on 06/28/23 10:31 UA Ketone Negative Last Edit by [employer] on 06/28/23 10:31 UA Bilirubin 0 mg/dL Last Edit by [employer] on 06/28/23 10:31 UA Glucose 0 mg/dL Last Edit by [employer] on 06/28/23 10:31 Results Reviewed Results Reviewed: I personally reviewed relevant radiographs Tricompartmental osteoarthritis with findings most pronounced in the medial compartment. Assessment & Plan Assessment & Plan (1) Osteoarthritis of right knee: Code(s): M17.11 - Unilateral primary osteoarthritis, right knee Qualifiers: Osteoarthritis type: primary Qualified Code(s): M17.11 - Unilateral primary osteoarthritis, right knee Plan: Right knee OA. Injections have not been helpful and she would like to try viscosupplementation. This is reasonable and appropriate. Plan Scribed for Robbie Craft MD by Kyle Doherty, medical laboratory assistant, on 06/28/23 at 2:05 PM, EST. Coding Level of Care Code Est Pt Level 3 (43875) Diagnoses Primary osteoarthritis of right knee M17.11 Osteoarthritis type: primary
[2023-06-28 13:54] VITALS: BMI 27.3
== END 2023-06-28 14:17 | disposition home or self-care (01) ==
PROVIDERS: Visit Provider Orthopaedic Surgery
DX: M17.11 Unilateral primary osteoarthritis, right knee (principal)
CPT/HCPCS: 99213

== ENCOUNTER 2023-07-08 12:14 | Outpatient (AMB) | payer OTHER, SELFPAY ==
--- NOTE | 2023-07-08 13:02 | A.OFFVIS_ITS ---
Intake Vital Signs 07/08/23 13:11 Height 4 ft 11 in Weight 235 lb 10.786 oz BMI 47.6 BP 148/78 H Blood Pressure Location Rt brachial Position Sitting Pulse 68 Pulse Source Pulse Oximeter Temp 97 F Temp Source Skin Pulse Oximetry (%) 97 Oxygen Delivery Method Room Air Intake Visit Reasons: osteoarthritis Intake Note: Pt last seen by Amisha 07/09/22 presents today for follow up and test results. 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 Required: Yes 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 Language: Linux Unix System Administrator Name: [id number] Information Interpreted: clinical only Accompanied by: Self / Same As Patient Allergies Penicillins [PENICILLINS] Allergy (Intermediate, Verified 07/08/23 13:12) HIVES fluticasone [From Advair Diskus] Allergy (Mild, Verified 07/08/23 13:12) Unknown potassium Allergy (Mild, Verified 07/08/23 13:12) Unknown salmeterol [From Advair Diskus] Allergy (Mild, Verified 07/08/23 13:12) Unknown Medication List - Last Reconciled 07/08/23 by Ceci Cummings MD albuterol sulfate 90 mcg/actuation (Ventolin HFA) 2 puffs PO Q4-6H PRN albuterol sulfate mg inhalation TID amlodipine 5 mg PO DAILY aspirin (Adult Low Dose Aspirin) 81 mg PO DAILY blood sugar diagnostic (FreeStyle Lite Strips) As directed calcium carbonate-vitamin D3 500 mg-5 mcg (200 unit) (Oyster Shell Calcium- Vitamin D3) 1 tab PO DAILY carvedilol 6.25 mg PO cholecalciferol (vitamin D3) 50 mcg PO DAILY dapagliflozin propanediol (Farxiga) 10 mg PO DAILY fluticasone propionate 220 mcg/actuation (Flovent HFA) 1 puff PO BID fluticasone propionate 50 mcg/actuation 2 sprays intranasal DAILY PRN gabapentin 100 mg PO BID irbesartan 300 mg PO DAILY isosorbide mononitrate ER 30 mg PO DAILY loratadine 10 mg PO DAILY metformin ER 1,000 mg PO nystatin 1 appl topical BID-TID omeprazole 40 mg (2 x 20 mg) PO DAILY oxycodone 5 mg PO Q6H PRN pyridoxine (vitamin B6) mg PO DAILY rosuvastatin 10 mg PO DAILY HPI HPI Comments History of Present Illness Details This is a 68-year-old female with generalized osteoarthritis who presents for follow-up. Her most bothersome joint is her right knee. She was recently evaluated by Dr. Craft and had a steroid injection back in April which did not provide any long-lasting relief. She was re-evaluated in June and was told that gel injections can be considered but have to be authorized by insurance. [facility] Medical History Renal calculi Irritable bowel syndrome Microscopic hematuria Eczema GERD (gastroesophageal reflux disease) Bursitis of heel Achilles tendinitis Juvenile xanthogranuloma Pilar cysts Hypercholesterolemia Kidney stones Osteoarthritis of right knee Osteoarthritis of left knee Hypertension Diabetes mellitus Surgical History History of surgery Hx of total knee arthroplasty (~2017) History of tubal ligation Social History Household Members: None Alcohol intake: never Patient Tobacco Use Status: Never used Tobacco Current occupational status: disabled Female Reproductive History Menstrual Age of Menarche: 13 Review of Systems [facility] [place] Reports arthralgias Physical Exam Vital Signs: Last Vital Signs Temp 97 F 07/08/23 13:11 Pulse 68 07/08/23 13:11 BP 148/78 H 07/08/23 13:11 Pulse Ox 97 07/08/23 13:11 Oxygen Delivery Method Room Air 07/08/23 13:11 BMI result Body Mass Index 47.6 Const General: cooperative, healthy appearing and comfortable Nutritional Appearance: obese morbidly obese Orientation/consciousness: patient oriented x3 Limitations: ambulation with cane HEENT Head: Yes normocephalic and Yes atraumatic Resp Effort & Inspection: normal respiratory effort and able to speak in complete sentences Auscultation: clear to auscultation bilaterally Cardio Rate: regular rate Rhythm: regular rhythm Neuro General: patient oriented x3 Extrem Other: Osteoarthritic changes of both hands with few Heberden's and Jovita's nodes Not swollen or tender Right knee warmth and pain with flexion Assessment & Plan Assessment & Plan (1) Osteoarthritis of right knee: Code(s): M17.11 - Unilateral primary osteoarthritis, right knee Qualifiers: Osteoarthritis type: primary Qualified Code(s): M17.11 - Unilateral primary osteoarthritis, right knee Plan: Patient follows up with Orthopedics for her knee osteoarthritis. She received a corticosteroid injection back in April with some relief but it did not last long. Gel injections were discussed with Dr. Craft. Follow-up with Dr. Craft Follow-up with me as needed Plan I spent 15 minutes reviewing patient's chart, evaluating patient, counseling patient and documenting in the chart Coding Level of Care Code Est Pt Level 4 (36083) Diagnoses Primary osteoarthritis of right knee M17.11 Osteoarthritis type: primary
[2023-07-08 13:11] VITALS: BP 148/78; PULSE 68; TEMP 36.1; O2SAT 97; BMI 47.6
== END 2023-07-08 13:38 | disposition home or self-care (01) ==
LOC: HO.RHE 12:14
PROVIDERS: PCP Pediatrics; Visit Provider Student in an Organized Health Care Education/Training Program
DX: M17.11 Unilateral primary osteoarthritis, right knee (principal)
CPT/HCPCS: 99214

== ENCOUNTER → 2023-07-08 12:14 | Outpatient (BNVA) | payer OTHER, SELFPAY | PROVIDERS: PCP Pediatrics; Visit Provider Student in an Organized Health Care Education/Training Program | DX: M17.11 Unilateral primary osteoarthritis, right knee (principal) | CPT/HCPCS: 99212 ==

== ENCOUNTER 2023-07-29 10:27 | Outpatient (AMB) | payer OTHER, SELFPAY ==
--- NOTE | 2023-07-25 13:41 | MHC.OFFVIS ---
Intake Intake Visit Reasons: RT Knee Durolane inj Allergies Penicillins [PENICILLINS] Allergy (Intermediate, Verified 07/08/23 13:12) HIVES fluticasone [From Advair Diskus] Allergy (Mild, Verified 07/08/23 13:12) Unknown potassium Allergy (Mild, Verified 07/08/23 13:12) Unknown salmeterol [From Advair Diskus] Allergy (Mild, Verified 07/08/23 13:12) Unknown PFSH Medical History Renal calculi Irritable bowel syndrome Microscopic hematuria Eczema GERD (gastroesophageal reflux disease) Bursitis of heel Achilles tendinitis Juvenile xanthogranuloma Pilar cysts Hypercholesterolemia Kidney stones Osteoarthritis of right knee Osteoarthritis of left knee Hypertension Diabetes mellitus Surgical History History of surgery Hx of total knee arthroplasty (~2017) History of tubal ligation Social History Household Members: None Alcohol intake: never Patient Tobacco Use Status: Never used Tobacco Current occupational status: disabled Female Reproductive History Menstrual Age of Menarche: 13 Review of Systems Const All systems reviewed & are unremarkable except as noted in HPI and below Physical Exam Const General: no acute distress, alert and awake Orientation/consciousness: patient oriented x3 HEENT Head: Yes normocephalic and Yes atraumatic Eyes EOM: EOMs intact bilaterally Resp Effort & Inspection: normal respiratory effort and able to speak in complete sentences Cardio Jugular venous distension: no JVD Skin General skin exam: turgor normal Rashes: no rashes Neuro General: patient oriented x3 Extrem Other: skin c/d/i Psych Appearance: grossly normal Affect: normal affect Attitude: cooperative Office Procedures Joint Injection/Drain Joint Injection/Drain Details: Injected Durolane. Site was prepped using aseptic technique. Patient tolerated the procedure well. Primary Site: right knee Approach Used: anterolateral Coding 27807 - Large joint Procedure code (CPT) selection complete Assessment & Plan Assessment & Plan (1) Osteoarthritis of right knee: Code(s): M17.11 - Unilateral primary osteoarthritis, right knee Qualifiers: Osteoarthritis type: primary Qualified Code(s): M17.11 - Unilateral primary osteoarthritis, right knee Plan: Durolane injection Coding Level of Care Code Est Pt Level 2 (65350) Diagnoses Primary osteoarthritis of right knee M17.11 Osteoarthritis type: primary CPT Codes Coding - 42042 Large joint: 36275 - Large joint ([id number])
--- NOTE | 2023-07-29 11:31 | A.OFFVIS_ITS ---
Intake Intake Visit Reasons: RT Knee Durolane inj Intake Note: Karon is a 68 year old female who presents today for a right knee Durolane Injection. Allergies Penicillins [PENICILLINS] Allergy (Intermediate, Verified 07/29/23 11:50) HIVES fluticasone [From Advair Diskus] Allergy (Mild, Verified 07/29/23 11:50) Unknown potassium Allergy (Mild, Verified 07/29/23 11:50) Unknown salmeterol [From Advair Diskus] Allergy (Mild, Verified 07/29/23 11:50) Unknown Medication List - Last Reconciled 07/29/23 by Zuleyka Green RN albuterol sulfate 90 mcg/actuation (Ventolin HFA) 2 puffs PO Q4-6H PRN albuterol sulfate mg inhalation TID amlodipine 5 mg PO DAILY aspirin (Adult Low Dose Aspirin) 81 mg PO DAILY blood sugar diagnostic (FreeStyle Lite Strips) As directed calcium carbonate-vitamin D3 500 mg-5 mcg (200 unit) (Oyster Shell Calcium- Vitamin D3) 1 tab PO DAILY carvedilol 6.25 mg PO cholecalciferol (vitamin D3) 50 mcg PO DAILY dapagliflozin propanediol (Farxiga) 10 mg PO DAILY fluticasone propionate 220 mcg/actuation (Flovent HFA) 1 puff PO BID fluticasone propionate 50 mcg/actuation 2 sprays intranasal DAILY PRN gabapentin 100 mg PO BID irbesartan 300 mg PO DAILY isosorbide mononitrate ER 30 mg PO DAILY loratadine 10 mg PO DAILY metformin ER 1,000 mg PO nystatin 1 appl topical BID-TID omeprazole 40 mg (2 x 20 mg) PO DAILY oxycodone 5 mg PO Q6H PRN pyridoxine (vitamin B6) mg PO DAILY rosuvastatin 10 mg PO DAILY PFSH Medical History Renal calculi Irritable bowel syndrome Microscopic hematuria Eczema GERD (gastroesophageal reflux disease) Bursitis of heel Achilles tendinitis Juvenile xanthogranuloma Pilar cysts Hypercholesterolemia Kidney stones Osteoarthritis of right knee Osteoarthritis of left knee Hypertension Diabetes mellitus Surgical History History of surgery Hx of total knee arthroplasty (~2017) History of tubal ligation Social History Household Members: None Alcohol intake: never Patient Tobacco Use Status: Never used Tobacco Current occupational status: disabled Female Reproductive History Menstrual Age of Menarche: 13 Physical Exam Extrem Other: skin c/d/i Office Procedures Joint Injection/Drain Joint Injection/Drain Details: Injected Durolane. Site was prepped using aseptic technique. Patient tolerated the procedure well. Primary Site: right knee Approach Used: anterolateral Coding 74770 - Large joint Procedure code (CPT) selection complete Assessment & Plan Assessment & Plan (1) Osteoarthritis of right knee: Code(s): M17.11 - Unilateral primary osteoarthritis, right knee Qualifiers: Osteoarthritis type: primary Qualified Code(s): M17.11 - Unilateral primary osteoarthritis, right knee Plan: Injected Durolane, right knee. No complications Coding Level of Care Code Est Pt Level 2 (38056) Diagnoses Primary osteoarthritis of right knee M17.11 Osteoarthritis type: primary CPT Codes Coding - 38710 Large joint: 12282 - Large joint ([id number])
== END 2023-07-29 12:16 | disposition home or self-care (01) ==
PROVIDERS: PCP Pediatrics; Visit Provider Orthopaedic Surgery
DX: M17.11 Unilateral primary osteoarthritis, right knee (principal)
CPT/HCPCS: 20610

== ENCOUNTER → 2023-07-29 10:27 | Outpatient (BNVA) | payer OTHER, SELFPAY | PROVIDERS: PCP Pediatrics; Visit Provider Orthopaedic Surgery | DX: M17.11 Unilateral primary osteoarthritis, right knee (principal) | CPT/HCPCS: 20610; J7318 ==

== ENCOUNTER 2023-09-17 08:58 | Outpatient (REF) | payer OTHER, SELFPAY ==
--- NOTE | ~2023-09-17 | XR_ITS ---
EXAMINATION: XR ABDOMEN KUB CLINICAL INDICATION: Calculus of kidney. COMPARISON: 06/15/2023 ultrasound renal. KUB 09/15/2017 and 02/03/2017. CT abdomen and pelvis 02/03/2023. TECHNIQUE: 2 AP views of the abdomen. FINDINGS: Nonobstructive bowel gas pattern. Moderate amount of stool in the colon. Degenerative changes in the spine and bilateral hips. Dextroscoliosis of the lumbar spine. No definitive renal calculi are identified, although visualization is limited due to body habitus and bowel gas. XR/XR KUB IMPRESSION: No definitive renal calculi are identified, although visualization is limited due to body habitus and bowel gas.
== END 2023-09-17 08:59 | disposition home or self-care (01) ==
LOC: HO.XRAY 08:58
PROVIDERS: PCP General Practice; Visit Provider Nurse Practitioner Family
DX: N20.0 Calculus of kidney (principal)
CPT/HCPCS: 74018

== ENCOUNTER 2023-09-27 13:29 | Outpatient (AMB) | payer OTHER, SELFPAY ==
--- NOTE | 2023-09-27 13:37 | A.OFFVIS_ITS ---
Intake Intake Visit Reasons: 3m/KUB Intake Note: Patient is present for follow up kidney stone and KUB results Imagin09/17/23 Urology Medications: none Blood Thinner: aspirin Bioinformatics Assistant Required: Yes Bioinformatics Assistant Name: FREEMAN FOWLERLITO Accompanied by: Self / Same As Patient Allergies Penicillins [PENICILLINS] Allergy (Intermediate, Verified 09/27/23 19:59) HIVES fluticasone [From Advair Diskus] Allergy (Mild, Verified 09/27/23 19:59) Unknown potassium Allergy (Mild, Verified 09/27/23 19:59) Unknown salmeterol [From Advair Diskus] Allergy (Mild, Verified 09/27/23 19:59) Unknown Medication List - Last Reconciled 09/27/23 by DALI Graham-FABIOLA albuterol sulfate 90 mcg/actuation (Ventolin HFA) 2 puffs PO Q4-6H PRN albuterol sulfate mg inhalation TID amlodipine 5 mg PO DAILY aspirin (Adult Low Dose Aspirin) 81 mg PO DAILY blood sugar diagnostic (FreeStyle Lite Strips) As directed calcium carbonate-vitamin D3 500 mg-5 mcg (200 unit) (Oyster Shell Calcium- Vitamin D3) 1 tab PO DAILY carvedilol 6.25 mg PO cholecalciferol (vitamin D3) 50 mcg PO DAILY cyclobenzaprine 5 mg PO BEDTIME PRN dapagliflozin propanediol (Farxiga) 10 mg PO DAILY fluticasone propionate 220 mcg/actuation (Flovent HFA) 1 puff PO BID fluticasone propionate 50 mcg/actuation 2 sprays intranasal DAILY PRN gabapentin 100 mg PO BID irbesartan 300 mg PO DAILY isosorbide mononitrate ER 30 mg PO DAILY loratadine 10 mg PO DAILY meloxicam 7.5 mg PO BID metformin ER 1,000 mg PO nystatin 1 appl topical BID-TID omeprazole 40 mg (2 x 20 mg) PO DAILY oxycodone 5 mg PO Q6H PRN pyridoxine (vitamin B6) mg PO DAILY rosuvastatin 10 mg PO DAILY HPI HPI Comments History of Present Illness Details Karon is a pleasant 68 year old Welsh speaking patient of Dr. Nieves. She has a past medical history of irritable bowel syndrome, TERENCE, obesity, GERD, nephrolithiasis, osteoarthritis, non alcoholic fatty liver disease, diverticulosis, and type 2 DM. She presents to the office today for a follow up of her nephrolthiaisis. Recent renal imaging results reviewed with the patient today. Prior no definitive renal calculi are identified, although visualization is limited due to body habitus in bowel gas. In discussion with the patient today she reports to be doing and feeling well. She denies any bothersome urinary issues or concerns. She does report urinary frequency, urinary urgency and episodes of incontinence if not near a bathroom however does not find this bothersome. When asked she denies urinary urgency, urinary frequency, incontinence, nocturia, hematuria, dysuria, foul smelling urine, changes to urinary stream, flank pain, fever, and or chills. She is happy with her current voiding parameters. Discussed importance of managing diabetes for improvement in urinary symptoms as well as overall health and well-being. In office urinalysis results reviewed with the patient today pH 5.5. Discussed and stressed the importance of drinking plenty of water daily. She otherwise offers no issues or concerns at this time. [facility] Medical History Renal calculi Irritable bowel syndrome Microscopic hematuria Eczema GERD (gastroesophageal reflux disease) Bursitis of heel Achilles tendinitis Juvenile xanthogranuloma Pilar cysts Hypercholesterolemia Kidney stones Osteoarthritis of right knee Osteoarthritis of left knee Hypertension Diabetes mellitus Surgical History History of surgery Hx of total knee arthroplasty (~2017) History of tubal ligation Social History Household Members: None Alcohol intake: never Patient Tobacco Use Status: Never used Tobacco Current occupational status: disabled Female Reproductive History Menstrual Age of Menarche: 13 Review of Systems Const Reports as per HPI Eyes Reports no additional complaints ENT Reports no additional complaints Card Reports no additional complaints Resp Reports no additional complaints GI Reports no additional complaints Reports as per HPI Musc Reports no additional complaints Neuro Reports no additional complaints Psych Reports no additional complaints Endo Reports no additional complaints Óscar/Lymph Reports no additional complaints Aller/Immun Reports no additional complaints Physical Exam Const General: cooperative, comfortable, no acute distress, well developed, alert and awake Nutritional Appearance: overweight Orientation/consciousness: patient oriented x3 Limitations: ambulation with cane HEENT Head: Yes normal to inspection, Yes normocephalic and Yes atraumatic Ears: hearing grossly normal bilaterally Eyes General: appearance normal, both eyes and all related structures Neck Neck: Yes normal visual inspection and Yes trachea midline Chest Chest palpation & inspection: normal inspection of the chest Resp Effort & Inspection: normal respiratory effort and able to speak in complete sentences Cardio Rate: regular rate Skin General skin exam: no rashes or lesions noted Neuro General: patient oriented x3 Extrem General: Yes normal to inspection Psych Appearance: grossly normal and well kempt Mental Status: mental status grossly normal Speech and movement: Normal speech and movement present and Clear speech present Affect: normal affect Attitude: cooperative Thought process: Normal thought process present Thought content: Normal thought content present Insight: Fair insight present (Psych) Judgement: Fair judgement present (Psych) Results AMB Urinalysis, Automated UA Leukoctes 15 Cindy/uL Last Edit by [employer] on 09/27/23 14:03 UA Nitrite Negative Last Edit by [employer] on 09/27/23 14:03 UA Urobilinogen 0.2 mg/dL Last Edit by [employer] on 09/27/23 14:03 UA Protein 15 mg/dL Last Edit by [employer] Race on 09/27/23 14:03 UA pH 5.5 Last Edit by [employer] on 09/27/23 14:03 UA Blood 0 Bridger/uL Last Edit by Space Race on 09/27/23 14:03 UA Specific [place] 1.025 Last Edit by [employer] on 09/27/23 14:03 UA Ketone Negative Last Edit by [employer] Race on 09/27/23 14:03 UA Bilirubin 0 mg/dL Last Edit by [employer] on 09/27/23 14:03 UA Glucose 0 mg/dL Last Edit by [employer] on 09/27/23 14:03 Results Reviewed Results Reviewed: Laboratory Last Values Urine pH (Auto) 5.5 09/27/23 13:41 Specific [place] (Auto) 1.025 09/27/23 13:41 Urine Protein (Auto) 15 mg/dL 09/27/23 13:41 Glucose (UA)(Auto) 0 mg/dL 09/27/23 13:41 Urine Ketones (Auto) Negative 09/27/23 13:41 Urine Blood (Auto) 0 Bridger/uL 09/27/23 13:41 Urine Nitrite (Auto) Negative 09/27/23 13:41 Urine Bilirubin (Auto) 0 mg/dL 09/27/23 13:41 Urine Urobilinogen (Auto) 0.2 mg/dL 09/27/23 13:41 Leukocyte Esterase (Auto) 15 Cindy/uL 09/27/23 13:41 Date of Service: 09/17/23 EXAMINATION: XR ABDOMEN KUB FINDINGS: Nonobstructive bowel gas pattern. Moderate amount of stool in the colon. Degenerative changes in the spine and bilateral hips. Dextroscoliosis of the lumbar spine. No definitive renal calculi are identified, although visualization is limited due to body habitus and bowel gas. IMPRESSION: No definitive renal calculi are identified, although visualization is limited due to body habitus and bowel gas. Assessment & Plan Assessment & Plan (1) Microscopic hematuria: Code(s): R31.29 - Other microscopic hematuria (2) Urinary frequency: Code(s): R35.0 - Frequency of micturition (3) Urinary urgency: Code(s): R39.15 - Urgency of urination (4) Renal calculi: Code(s): N20.0 - Calculus of kidney Plan In office urinalysis results reviewed with the patient today; as noted above. Recent KUB results reviewed with the patient today; as noted above. Discussed at length the importance of drinking plenty of water daily. Discussed at length potential causes of nephrolithiasis. Patient currently denies any bothersome urinary issues or concerns. Continue vitamin B6 as discussed and prescribed. Will obtain renal ultrasound in 6 months. Follow-up in 6 months with imaging to be completed prior; or sooner with any iss ues, concerns, and or questions. Orders: Orders US renal BI 6 Months N20.0 - Calculus of kidney AMB Urinalysis Automated Today Z13.9 - Encounter for screening, unspecified Medications: Discontinued oxycodone Partial Fill upon patient request. Discontinued Reason: Patient Completed Course 5 mg PO Q6H PRN 14 tabs 0RF severe pain (scale score 7-10) Patient Instructions: The patient had an opportunity to ask questions regarding the treatment plan. All questions were answered. Physical exam, labs, and imaging were discussed and reviewed in detail. As well as risks, benefits, and discussion of treatment choices. No major barriers to understanding were identified. The patient expressed understanding and agreement with the above treatment plan. The patient was made aware they should contact our office by phone for worsening of their current condition, the appearance of new symptoms, or with any questions or concerns. Compliance is encouraged with any medications and follow up testing that is ordered. It is a privilege to be allowed the opportunity to participate in? your urological care.? Again, if you have any questions or concerns If you have any questions or concerns please do not hesitate to contact me. The office is [phone]. This note is constructed using voice recognition software. While every effort has been made to ensure accuracy wafer fab technician errors may have been included. Yours sincerely, MOSES Graham Coding Level of Care Code Est Pt Level 3 (43064) Diagnoses Microscopic hematuria R31.29 Urinary frequency R35.0 Urinary urgency R39.15 Renal calculi N20.0
== END 2023-09-27 14:21 | disposition home or self-care (01) ==
PROVIDERS: PCP Pediatrics; Visit Provider Nurse Practitioner Family
DX: R31.29 Other microscopic hematuria (principal); R35.0 Frequency of micturition; R39.15 Urgency of urination; N20.0 Calculus of kidney; Z13.9 Encounter for screening, unspecified
CPT/HCPCS: 99213

== ENCOUNTER → 2023-09-27 13:29 | Outpatient (BNVA) | payer OTHER, SELFPAY | PROVIDERS: PCP Pediatrics; Visit Provider Nurse Practitioner Family | DX: R31.29 Other microscopic hematuria (principal); R35.0 Frequency of micturition; R39.15 Urgency of urination; N20.0 Calculus of kidney | CPT/HCPCS: 81003; 99212 ==

== ENCOUNTER 2023-09-30 12:11 | Outpatient (AMB) | payer OTHER, SELFPAY ==
--- NOTE | 2023-09-30 12:14 | MHC.OFFVIS ---
Intake Vital Signs 09/30/23 12:18 Height 4 ft 11 in Weight 238 lb BMI 48.1 BP 132/60 Blood Pressure Location Lt brachial Position Sitting Pulse 74 Intake Visit Reasons: 3 Month Follow Up Intake Note: Patient follow up abdominal pain Patient cc: abdominal pain on and off, some acid reflex come and go, a lot of movement on her stomach and dysphagia on and off. Paper Finisher Required: Yes Paper Finisher Name: [facility] [place] Interpeter Accompanied by: Self / Same As Patient Allergies Penicillins [PENICILLINS] Allergy (Intermediate, Verified 09/30/23 12:13) HIVES fluticasone [From Advair Diskus] Allergy (Mild, Verified 09/30/23 12:13) Unknown potassium Allergy (Mild, Verified 09/30/23 12:13) Unknown salmeterol [From Advair Diskus] Allergy (Mild, Verified 09/30/23 12:13) Unknown Medication List - Last Reconciled 09/30/23 by Adeline Painting PA-C albuterol sulfate 90 mcg/actuation (Ventolin HFA) 2 puffs PO Q4-6H PRN albuterol sulfate mg inhalation TID amlodipine 5 mg PO DAILY aspirin (Adult Low Dose Aspirin) 81 mg PO DAILY blood sugar diagnostic (FreeStyle Lite Strips) As directed calcium carbonate-vitamin D3 500 mg-5 mcg (200 unit) (Oyster Shell Calcium-Vitamin D3) 1 tab PO DAILY carvedilol 6.25 mg PO cholecalciferol (vitamin D3) 50 mcg PO DAILY cyclobenzaprine 5 mg PO BEDTIME PRN dapagliflozin propanediol (Farxiga) 10 mg PO DAILY fluticasone propionate 220 mcg/actuation (Flovent HFA) 1 puff PO BID fluticasone propionate 50 mcg/actuation 2 sprays intranasal DAILY PRN gabapentin 100 mg PO BID irbesartan 300 mg PO DAILY isosorbide mononitrate ER 30 mg PO DAILY loratadine 10 mg PO DAILY meloxicam 7.5 mg PO BID metformin ER 1,000 mg PO omeprazole 40 mg (2 x 20 mg) PO DAILY pyridoxine (vitamin B6) mg PO DAILY rosuvastatin 10 mg PO DAILY HPI HPI Comments History of Present Illness Details A 68-year-old female chronic abdominal pain follows up she was last seen April 2023 at which time symptoms have been well managed She says she just wants to catch up- feels like a baby moving around- she eats everything- does not omit any foods-she eats a lot of beans - passing gas Reviewed diet- No nausea, vomiting, hematemesis, hematochezia fever chills PFSH Medical History (Reviewed 09/27/23 @ 20:06 by [facility] Renal calculi Irritable bowel syndrome Microscopic hematuria Eczema GERD (gastroesophageal reflux disease) Bursitis of heel Achilles tendinitis Juvenile xanthogranuloma Pilar cysts Hypercholesterolemia Kidney stones Osteoarthritis of right knee Osteoarthritis of left knee Hypertension Diabetes mellitus Surgical History History of surgery Hx of total knee arthroplasty (~2017) History of tubal ligation Social History Household Members: None Alcohol intake: never Patient Tobacco Use Status: Never used Tobacco Current occupational status: disabled Female Reproductive History Menstrual Age of Menarche: 13 Physical Exam Vital Signs: Last Vital Signs Pulse 74 09/30/23 12:18 BP 132/60 09/30/23 12:18 BMI result Body Mass Index 48.1 Const General: cooperative, comfortable and no acute distress Nutritional Appearance: overweight Orientation/consciousness: patient oriented x3 Limitations: language barrier Eyes Sclerae: sclerae normal Resp Effort & Inspection: normal respiratory effort and able to speak in complete sentences Auscultation: clear to auscultation bilaterally Cardio Rate: regular rate Rhythm: regular rhythm Heart sounds: S1 normal heart sound present GI Palpation (GI): Soft to palpation and nontender Auscultation: Hyperactive bowel sounds present Skin General skin exam: no rashes or lesions noted Neuro General: patient oriented x3 Extrem General: Yes full ROM Psych Appearance: well kempt Mental Status: mental status grossly normal Speech and movement: Clear speech present Affect: normal affect and Anxious affect present Attitude: cooperative Thought process: Normal thought process present Thought content: Normal thought content present Assessment & Plan Assessment & Plan (1) Irritable bowel syndrome: Comment: Very good spirits today- Code(s): K58.9 - Irritable bowel syndrome without diarrhea Plan: Bowels have been normal (2) Gas bloat syndrome: Comment: gasx- omit beans Code(s): K92.89 - Other specified diseases of the digestive system Plan: Low FODMAP Plan low Fodmap, review literature she does not read gasx food diary Daughter to help-cant read Medications: New simethicone (Gas Relief (simethicone)) 125 mg PO TID-QID PRN 90 tabs 2RF abdominal distention Patient Instructions: Pleasant, overweight 68-year-old female with diabetes, fatty liver follows with chronic , vague-GI complaints Reviewed diet-discuss lifestyle dietary change low Fodmap, review literature she does not read-her daughter will assist her gasx food diary Coding Level of Care Code Est Pt Level 3 (21932) Diagnoses Irritable bowel syndrome K58.9 Gas bloat syndrome K92.89 Time Spent (min) 30 Comment Krzysztof
[2023-09-30 12:18] VITALS: BP 132/60; PULSE 74; BMI 48.1
== END 2023-09-30 12:53 | disposition home or self-care (01) ==
PROVIDERS: PCP General Practice; Visit Provider Physician Assistant
DX: K58.9 Irritable bowel syndrome, unspecified (principal); K92.89 Other specified diseases of the digestive system
CPT/HCPCS: 99213

== ENCOUNTER → 2023-09-30 12:11 | Outpatient (BNVA) | payer OTHER, SELFPAY | PROVIDERS: PCP General Practice; Visit Provider Physician Assistant | DX: K21.9 Gastro-esophageal reflux disease without esophagitis (principal); K58.9 Irritable bowel syndrome, unspecified; K92.89 Other specified diseases of the digestive system; Z79.899 Other long term (current) drug therapy | CPT/HCPCS: 99212 ==

== ENCOUNTER 2023-10-05 10:32 | Outpatient (AMB) | payer OTHER, SELFPAY ==
--- NOTE | 2023-10-05 10:56 | MHC.OFFVIS ---
Vital Signs 10/05/23 11:05 Height 4 ft 11 in Weight 238 lb 4 oz BMI 48.1 BP 134/80 Blood Pressure Location Lt brachial Position Sitting Pulse 67 Pulse Source Pulse Oximeter Pulse Oximetry (%) 97 Oxygen Delivery Method Room Air Intake Visit Reasons: 6 mnts f/u for sleep-CONF Intake Note: Patient presents for 6 months F/U. Would like to tried full face mask and lower the pressures on CPAP machine just a little. Allergies Penicillins [PENICILLINS] Allergy (Intermediate, Verified 10/05/23 11:03) HIVES fluticasone [From Advair Diskus] Allergy (Mild, Verified 10/05/23 11:03) Unknown potassium Allergy (Mild, Verified 10/05/23 11:03) Unknown salmeterol [From Advair Diskus] Allergy (Mild, Verified 10/05/23 11:03) Unknown HPI Comments Details: 68 y/o female patient presents for follow up of TERENCE on CPAP. The CPAP compliance and therapy response (09/04/23-10/03/23) reviewed. She is on CPAP at [id number]. The usage days 100% and the average usage hours 6 hrs. The AHI was 1.7/hr. She feels refreshes in the morning and daytime sleepiness has improved. She is using nasal mask but wants to try full face mask. Her nasal mask causes her nose very dry. And also she feels the pressure is too high for her. [facility] Medical History Renal calculi Irritable bowel syndrome Microscopic hematuria Eczema GERD (gastroesophageal reflux disease) Bursitis of heel Achilles tendinitis Juvenile xanthogranuloma Pilar cysts Hypercholesterolemia Kidney stones Osteoarthritis of right knee Osteoarthritis of left knee Hypertension Diabetes mellitus Surgical History History of surgery Hx of total knee arthroplasty (~2017) History of tubal ligation Social History (Updated 10/05/23 @ 11:04 by Nano Perkins CMA) Household Members: None Housing: Apartment Alcohol intake: never Patient Tobacco Use Status: Never used Tobacco Current occupational status: disabled Female Reproductive History Menstrual Age of Menarche: 13 Review of Systems Const All systems reviewed & are unremarkable except as noted in HPI and below ENT Reports Normal hearing present Neuro Reports Normal hearing present Physical Exam Vital Signs: Last Vital Signs Pulse 67 10/05/23 11:05 BP 134/80 10/05/23 11:05 Pulse Ox 97 10/05/23 11:05 Oxygen Delivery Method Room Air 10/05/23 11:05 BMI result Body Mass Index 48.1 Const General: cooperative Nutritional Appearance: obese Orientation/consciousness: patient oriented x3 Limitations: language barrier Resp Effort & Inspection: normal respiratory effort and able to speak in complete sentences Neuro General: patient oriented x3 and moves all extremities Cranial nerves: Yes Normal facial strength present, Yes Midline tongue present, Yes Symmetric palate elevation present, Yes Normal hearing present, Yes Ability to bilaterally rotate head present and Yes Ability to bilaterally elevate shoulders present Cognition (Neuro): normal cognition Motor exam (neuro): 5/5 motor strength present throughout Psych Appearance: grossly normal Mental Status: mental status grossly normal Speech and movement: Normal speech and movement present Affect: normal affect Attitude: cooperative Assessment & Plan Assessment & Plan (1) TERENCE (obstructive sleep apnea): Comment: Severe degree of TERENCE with increased severity in REM. The total AHI was 24/hr, REM AHI was 39/hr with oxygen akila was 76% Code(s): G47.33 - Obstructive sleep apnea (adult) (pediatric) Category: Medical (2) Obesity: Code(s): E66.9 - Obesity, unspecified Category: Medical Plan Change the CPAP pressure at 12 cmH2O. Continue to use CPAP as patient experiences good clinical effects, better quality sleep and daytime sleepiness has improved. New mask fitting prescription given to patient and she will go to [facility] for new mask fitting. Stressed compliance, use CPAP nightly and more than 4 hours. Wt reduction advised. Coding Level of Care Code Est Pt Level 3 (77010) Diagnoses TERENCE (obstructive sleep apnea) G47.33 Obesity E66.9
[2023-10-05 11:05] VITALS: BP 134/80; PULSE 67; O2SAT 97; BMI 48.1
== END 2023-10-05 11:23 | disposition home or self-care (01) ==
PROVIDERS: PCP General Practice; Visit Provider Nurse Practitioner Family
DX: G47.33 Obstructive sleep apnea (adult) (pediatric) (principal); E66.9 Obesity, unspecified
CPT/HCPCS: 99213

== ENCOUNTER → 2023-10-05 10:32 | Outpatient (BNVA) | payer OTHER, SELFPAY | PROVIDERS: PCP General Practice; Visit Provider Nurse Practitioner Family | DX: G47.33 Obstructive sleep apnea (adult) (pediatric) (principal); E66.9 Obesity, unspecified; Z68.42 Body mass index [BMI] 45.0-49.9, adult | CPT/HCPCS: 99212 ==

== ENCOUNTER 2023-11-18 08:12 | Outpatient (REF) | payer OTHER, SELFPAY ==
--- NOTE | ~2023-11-18 | XR_ITS ---
EXAMINATION: XR KNEE, LEFT CLINICAL INFORMATION: Pain left knee. COMPARISON: 06/12/2023 right knee. TECHNIQUE: AP standing view of bilateral knees as well as lateral and sunrise views of the left knee. FINDINGS: RIGHT KNEE AP STANDING VIEW: Marked joint space narrowing with subchondral sclerosis and moderate osteophytosis. LEFT KNEE: Status post left knee total arthroplasty. Moderate joint effusion. Hardware appears intact. Alignment preserved. XR/XR knee LT 3V IMPRESSION: 1. Marked degenerative changes right knee. 2. Status post left knee total arthroplasty. Hardware appears intact. Alignment preserved.
== END 2023-11-18 08:13 | disposition home or self-care (01) ==
LOC: HO.HOSX 08:12
PROVIDERS: PCP General Practice; Visit Provider Orthopaedic Surgery
DX: M25.562 Pain in left knee (principal); Z96.652 Presence of left artificial knee joint; M23.8X1 Other internal derangements of right knee
CPT/HCPCS: 73562; 99212

== ENCOUNTER 2023-11-18 08:12 | Outpatient (AMB) | payer OTHER, SELFPAY ==
--- NOTE | 2023-11-18 08:29 | A.OFFVIS_ITS ---
Vital Signs 11/18/23 08:30 Height 4 ft 11 in Weight 238 lb BMI 48.1 Intake Visit Reasons: Left knee pain Intake Note: Karon is a 68 year old female who presents today for a new problem visit with complaints of left knee pain. Allergies Penicillins [PENICILLINS] Allergy (Intermediate, Verified 11/18/23 08:32) HIVES fluticasone [From Advair Diskus] Allergy (Mild, Verified 11/18/23 08:32) Unknown potassium Allergy (Mild, Verified 11/18/23 08:32) Unknown salmeterol [From Advair Diskus] Allergy (Mild, Verified 11/18/23 08:32) Unknown HPI HPI Left knee pain: Details: Karon is a 68 year old female who presents today for left knee pain. She states she has pain with activity that worsens throughout the day. She feels okay when she gets out of bed but it gradually worsened. She has occasional numbness and tingling in the leg. She denies fevers and chills. [facility] Medical History Renal calculi Irritable bowel syndrome Microscopic hematuria Eczema GERD (gastroesophageal reflux disease) Bursitis of heel Achilles tendinitis Juvenile xanthogranuloma Pilar cysts Hypercholesterolemia Kidney stones Osteoarthritis of right knee Osteoarthritis of left knee Hypertension Diabetes mellitus Surgical History History of surgery Hx of total knee arthroplasty (~2017) History of tubal ligation Social History Household Members: None Housing: Apartment Alcohol intake: never Patient Tobacco Use Status: Never used Tobacco Current occupational status: disabled Female Reproductive History Menstrual Age of Menarche: 13 Physical Exam Vital Signs: BMI result Body Mass Index 48.1 Extrem Other: Incision clean dry and intact 0-125 degrees of motion No effusion Stable arc of motion with no varus or valgus instability. Results Reviewed Results Reviewed: I personally reviewed relevant radiographs. Left total knee arthroplasty in expected post operative position with no delvin dware complications or evidence of loosening Assessment & Plan Assessment & Plan (1) S/P knee replacement: Code(s): Z96.659 - Presence of unspecified artificial knee joint Category: Surgical Plan: Left knee radiographs and exams are unremarkable. I recommend a referral to pain management Orders: Orders XR knee LT 3V Today M25.562 - Pain in left knee Referrals Pain Management Referral Z96.659 - Presence of unspecified artificial knee joint Coding Level of Care Code Est Pt Level 3 (01944) Diagnoses S/P knee replacement Z96.659
[2023-11-18 08:30] VITALS: BMI 48.1
== END 2023-11-18 11:33 | disposition home or self-care (01) ==
PROVIDERS: PCP General Practice; Visit Provider Orthopaedic Surgery
DX: M25.562 Pain in left knee (principal); Z96.652 Presence of left artificial knee joint
CPT/HCPCS: 99213

== ENCOUNTER 2023-12-10 09:08 | Outpatient (AMB) | payer OTHER, SELFPAY ==
[2023-12-10 09:20] VITALS: BP 162/75; PULSE 69; RESP 16; O2SAT 97; BMI 47.9
--- NOTE | 2023-12-10 09:20 | MHC.OFFVIS ---
Vital Signs 12/10/23 09:20 Height 4 ft 11 in Weight 237 lb 2 oz BMI 47.9 BP 162/75 H Blood Pressure Location Lt brachial Position Sitting Respiration 16 Pulse 69 Pulse Source Pulse Oximeter Pulse Oximetry (%) 97 Oxygen Delivery Method Room Air Intake Visit Reasons: BILATERAL KNEE PAIN Allergies Penicillins [PENICILLINS] Allergy (Intermediate, Verified 12/10/23 09:21) HIVES fluticasone [From Advair Diskus] Allergy (Mild, Verified 12/10/23 09:21) Unknown potassium Allergy (Mild, Verified 12/10/23 09:21) Unknown salmeterol [From Advair Diskus] Allergy (Mild, Verified 12/10/23 09:21) Unknown HPI Comments Details: Karon is a very pleasant 68 year old Cameroonian speaking patient who presents to the office today for evaluation and management of her chronic left knee pain. Visit completed with [facility]er electronic: Jame #[id number] She was referred by ortho, S/P left TKA 2013. Reports pain improved after surgery but started to bother her again about 2 years ago. Denies injury. Patient has completed PT without improvement. She has been taking tylenol and NSAIDs for greater than one year but pain persists. Currently taking gabapentin 100 mg p.o. t.i.d. without improvement. Endorses posterior left knee pain, tender to palpation. Pain today rated 5/10, constant. In terms of muscle damage condition is described as sharp, aching and bothersome. Pain is negatively impacting patient's enjoyment of life, general activity, walking. Denies implantable devices, pacemaker or defibrillator. Denies current use of a anticoagulants. [facility] Medical History Renal calculi Irritable bowel syndrome Microscopic hematuria Eczema GERD (gastroesophageal reflux disease) Bursitis of heel Achilles tendinitis Juvenile xanthogranuloma Pilar cysts Hypercholesterolemia Kidney stones Osteoarthritis of right knee Osteoarthritis of left knee Hypertension Diabetes mellitus Surgical History History of surgery Hx of total knee arthroplasty (~2017) History of tubal ligation Social History Household Members: None Housing: Apartment Alcohol intake: never Patient Tobacco Use Status: Never used Tobacco Current occupational status: disabled Female Reproductive History Menstrual Age of Menarche: 13 Review of Systems Const All systems reviewed & are unremarkable except as noted in HPI and below Physical Exam Vital Signs: Last Vital Signs Pulse 69 12/10/23 09:20 Resp 16 12/10/23 09:20 BP 162/75 H 12/10/23 09:20 Pulse Ox 97 12/10/23 09:20 Oxygen Delivery Method Room Air 12/10/23 09:20 BMI result Body Mass Index 47.9 General: awake, alert, oriented. Answers questions appropriately. Fully engaged in examination. Skin: warm, dry, intact HEENT: Normocephalic. Hearing intact. Cardiac: External chest normal in appearance. Respiratory: No cough, audible wheezing or stridor. Abdomen: without gross distension. MS: No obvious swelling or deformities. well healed post surgical scar right knee Right knee: full ROM, tenderness posteriorly Neurological: Oriented to person, place, time and situation. Thought process intact. Ambulates with use of a cane. Psychiatric: Appropriate mood and affect. Good judgment and insight. Results Reviewed Results Reviewed: 11/18/23 FINDINGS: RIGHT KNEE AP STANDING VIEW: Marked joint space narrowing with subchondral sclerosis and moderate osteophytosis. LEFT KNEE: Status post left knee total arthroplasty. Moderate joint effusion. Hardware appears intact. Alignment preserved. IMPRESSION: 1. Marked degenerative changes right knee. 2. Status post left knee total arthroplasty. Hardware appears intact. Alignment preserved. Assessment & Plan Assessment & Plan (1) Left knee pain: Code(s): M25.562 - Pain in left knee Category: Medical (2) S/P knee replacement: Code(s): Z96.659 - Presence of unspecified artificial knee joint Category: Surgical Qualifiers: Laterality: left Qualified Code(s): Z96.652 - Presence of left artificial knee joint Plan Patient presented to the office today for evaluation and management of her chronic left knee pain, s/p left TKA. Discussed options for treatment including diagnostic interventional testing, steroid injections, peripheral nerve stimulation with Sprint, RFA and more permanent neuromodulation. Informational pamphlets provided. She has exhausted conservative treatment including PT, Tylenol, prescription medications and NSAIDs. Patient was given pamphlet for Sprint PNS, she is not ready to proceed with left SN Sprint at this time. She will review and call the office when ready to proceed. All questions and concerns have been answered and patient agrees with the plan. Call the office when ready to proceed with Sprint, sooner if needed. Coding Level of Care Code New Pt Level 4 (52944) Diagnoses Left knee pain M25.562 Status post left knee replacement Z96.652 Laterality: left
== END 2023-12-10 09:50 | disposition home or self-care (01) ==
PROVIDERS: PCP General Practice; Referring Provider Orthopaedic Surgery; Visit Provider Registered Nurse Emergency
DX: M25.562 Pain in left knee (principal); Z96.652 Presence of left artificial knee joint
CPT/HCPCS: 99204

== ENCOUNTER → 2023-12-10 09:08 | Outpatient (BNVA) | payer OTHER, SELFPAY | PROVIDERS: PCP General Practice; Referring Provider Orthopaedic Surgery; Visit Provider Registered Nurse Emergency | DX: M25.562 Pain in left knee (principal); Z96.652 Presence of left artificial knee joint | CPT/HCPCS: 99202 ==

== ENCOUNTER 2023-12-22 09:46 | Outpatient (REF) | payer OTHER, SELFPAY | END 2023-12-22 09:47 | disposition home or self-care (01) | LOC: HO.MAMMO 09:46 | PROVIDERS: PCP General Practice; Visit Provider General Practice | DX: Z12.31 Encounter for screening mammogram for malignant neoplasm of breast (principal) | CPT/HCPCS: 77063; 77067 ==

== ENCOUNTER → 2023-12-22 10:30 | Outpatient (BNV) | payer OTHER, SELFPAY | PROVIDERS: PCP General Practice; Visit Provider Radiology Diagnostic Radiology | DX: Z12.31 Encounter for screening mammogram for malignant neoplasm of breast (principal) | CPT/HCPCS: 77063; 77067 ==

== ENCOUNTER 2024-01-10 06:41 | Outpatient (REF) | payer OTHER, SELFPAY ==
[2024-01-10 08:57] LABS: Anion Gap 14 (12-20); B Type Natriuretic Peptide 72 pg/mL (<100); Blood Urea Nitrogen 23 mg/dL (9-16); Calcium 9.9 mg/dL (8.4-10.2); Carbon Dioxide 27 mmol/L (22-29); Chloride 104 mmol/L (96-108); Estimated Glomerular Filt Rate 51; Glucose Random 204 mg/dL (60-115); Potassium 4.3 mmol/L (3.3-5.1); Sodium 141 mmol/L (135-145)
== END 2024-01-10 06:42 | disposition home or self-care (01) ==
LOC: HO.LAB 06:41
PROVIDERS: PCP General Practice; Visit Provider Internal Medicine Cardiovascular Disease
DX: I83.10 Varicose veins of unspecified lower extremity with inflammation (principal)
CPT/HCPCS: 36415; 80048; 83880

== ENCOUNTER 2024-01-31 08:18 | Outpatient (AMB) | payer OTHER, SELFPAY ==
--- NOTE | 2024-01-31 09:05 | A.OFFVIS_ITS ---
Intake Visit Reasons: Inj-Right knee Durolane Injection Intake Note: Karon is a 68 year old female who presents today for a right knee Durolane injection. Patient is also having complaints of left knee pain. Hx of Left TKA 2013. Allergies Penicillins [PENICILLINS] Allergy (Intermediate, Verified 01/31/24 09:05) HIVES fluticasone [From Advair Diskus] Allergy (Mild, Verified 01/31/24 09:05) Unknown potassium Allergy (Mild, Verified 01/31/24 09:05) Unknown salmeterol [From Advair Diskus] Allergy (Mild, Verified 01/31/24 09:05) Unknown HPI HPI Inj-Right knee Durolane Injection: Details: Karon is a 68 year old female who presents today for a right knee Durolane injection. Patient is also having complaints of left knee pain. Hx of Left TKA 2013. She went to pain management and is thinking about a SPRINT trial but not enthusiatically. Her right knee is doing better and she would like to defer on her Durolane. [facility] Medical History Renal calculi Irritable bowel syndrome Microscopic hematuria Eczema GERD (gastroesophageal reflux disease) Bursitis of heel Achilles tendinitis Juvenile xanthogranuloma Pilar cysts Hypercholesterolemia Kidney stones Osteoarthritis of right knee Osteoarthritis of left knee Hypertension Diabetes mellitus Surgical History History of surgery Hx of total knee arthroplasty (~2017) History of tubal ligation Social History Household Members: None Housing: Apartment Alcohol intake: never Patient Tobacco Use Status: Never used Tobacco Current occupational status: disabled Female Reproductive History Menstrual Age of Menarche: 13 Physical Exam Extrem Other: Incision clean dry and intact on left 0-125 degrees of motion No effusion Stable arc of motion with no varus or valgus instability. Mild bilateral medial compartment TTP Assessment & Plan Assessment & Plan (1) S/P knee replacement: Code(s): Z96.659 - Presence of unspecified artificial knee joint Category: Surgical Qualifiers: Laterality: left Qualified Code(s): Z96.652 - Presence of left artificial knee joint Plan: Continue with Pain Management (2) Arthritis of right knee: Code(s): M17.11 - Unilateral primary osteoarthritis, right knee Category: Medical Plan: Will defer on Durolane as her knee is feeling better. November f/u PRN Coding Level of Care Code Est Pt Level 3 (92199) Diagnoses Status post left knee replacement Z96.652 Laterality: left Arthritis of right knee M17.11
== END 2024-01-31 09:26 | disposition home or self-care (01) ==
PROVIDERS: PCP General Practice; Visit Provider Orthopaedic Surgery
DX: M17.11 Unilateral primary osteoarthritis, right knee (principal); Z96.652 Presence of left artificial knee joint
CPT/HCPCS: 99213

== ENCOUNTER → 2024-01-31 08:18 | Outpatient (BNVA) | payer OTHER, SELFPAY | PROVIDERS: PCP General Practice; Visit Provider Orthopaedic Surgery | DX: M17.11 Unilateral primary osteoarthritis, right knee (principal); Z96.652 Presence of left artificial knee joint | CPT/HCPCS: 99212; J7318 ==

== ENCOUNTER 2024-03-14 08:57 | Outpatient (REF) | payer OTHER, SELFPAY ==
--- NOTE | ~2024-03-14 | US_ITS ---
EXAMINATION: US RETROPERITONEAL COMPLETE (RENAL) CLINICAL INFORMATION: Calculus of kidney. COMPARISON: KUB 09/17/2023, renal ultrasound 06/15/2023 and 02/17/2023, CT abdomen and pelvis 02/03/2023. TECHNIQUE: Real-time imaging of the kidneys and bladder. Limited visualization due to bowel gas. FINDINGS: RIGHT KIDNEY: 10.0 x 4.4 x 4.4 cm (SAG x AP x TRV). No hydronephrosis. Lower pole 4 mm and 2 mm renal calculi. Renal cortical thickness is normal. Limited visualization. LEFT KIDNEY: 12.1 x 5.5 x 4.4 cm (SAG x AP x TRV). No hydronephrosis. Left renal lower pole echogenic focus likely represents artifact rather than a tiny calculus. No obstructing renal calculi. Renal cortical thickness is normal. Limited visualization. US/US renal BI IMPRESSION: Right nephrolithiasis. Left renal lower pole echogenic focus likely represents artifact rather than a tiny calculus. No hydronephrosis. No midline shift Electronically signed by: Janelle Almonte MD 03/15/2024 04:50 PM EDT
== END 2024-03-14 08:58 | disposition home or self-care (01) ==
LOC: HO.US 08:57
PROVIDERS: PCP General Practice; Visit Provider Nurse Practitioner Family
DX: N20.0 Calculus of kidney (principal)
CPT/HCPCS: 76775

== ENCOUNTER 2024-03-27 10:00 | Outpatient (AMB) | payer OTHER, SELFPAY ==
--- NOTE | 2024-03-27 10:04 | A.OFFVIS_ITS ---
Intake Visit Reasons: 6m/US(set) Intake Note: Patient is present for follow up kidney stone and ultrasound results Imagin03/14/24 Urology Medications: Vitamin b6 Blood Thinner: aspirin Events Specialist Required: Yes Events Specialist Name: Terrie [id number] Accompanied by: Self / Same As Patient Allergies Penicillins [PENICILLINS] Allergy (Intermediate, Verified 03/27/24 10:29) HIVES fluticasone [From Advair Diskus] Allergy (Mild, Verified 03/27/24 10:29) Unknown potassium Allergy (Mild, Verified 03/27/24 10:29) Unknown salmeterol [From Advair Diskus] Allergy (Mild, Verified 03/27/24 10:29) Unknown Medication List - Last Reconciled 03/27/24 by MOSES Graham albuterol sulfate 90 mcg/actuation (Ventolin HFA) 2 puffs PO Q4-6H PRN albuterol sulfate mg inhalation TID amlodipine 5 mg PO DAILY aspirin (Adult Low Dose Aspirin) 81 mg PO DAILY blood sugar diagnostic (FreeStyle Lite Strips) As directed calcium carbonate-vitamin D3 500 mg-5 mcg (200 unit) (Oyster Shell Calcium-Vitamin D3) 1 tab PO DAILY cholecalciferol (vitamin D3) 50 mcg PO DAILY cyclobenzaprine 5 mg PO BEDTIME PRN dapagliflozin propanediol (Farxiga) 10 mg PO DAILY fluticasone furoate 200 mcg/actuation (Arnuity Ellipta) 1 inh inhalation DAILY fluticasone propionate 220 mcg/actuation (Flovent HFA) 1 puff PO BID fluticasone propionate 50 mcg/actuation 2 sprays intranasal DAILY PRN gabapentin 100 mg PO BID irbesartan 300 mg PO DAILY isosorbide mononitrate ER 30 mg PO DAILY lancets (TRUEplus Lancets) As directed loratadine 10 mg PO DAILY meloxicam 7.5 mg PO BID metformin ER 1,000 mg PO montelukast 10 mg PO DAILY omeprazole 40 mg (2 x 20 mg) PO DAILY pyridoxine (vitamin B6) mg PO DAILY pyridoxine (vitamin B6) 100 mg PO DAILY 90 days rosuvastatin 10 mg PO DAILY simethicone 125 mg PO TID-QID PRN HPI Comments Details: Karon is a pleasant 68 year old Khmer speaking patient of Dr. Nieves. She has a past medical history of irritable bowel syndrome, TERENCE, obesity, GERD, nephrolithiasis, osteoarthritis, non alcoholic fatty liver disease, diverticulosis, and type 2 DM. She presents to the office today for a follow up of her nephrolthiaisis. Recent renal imaging results reviewed with the patient today. Right kidney with no hydronephrosis. 4 mm and 2 mm renal calculi noted. Left kidney with no hydronephrosis or renal calculi. Discussion with the patient today she does report noting intermittent episodes of right-sided flank pain. She also reports urinary frequency, urinary urgency and episodes of incontinence if not near a bathroom however does not find this bothersome and does not wish to undergo further work up at this time. She otherwise denies no cturia, hematuria, dysuria, foul smelling urine, changes to urinary stream, flank pain, fever, and or chills. In office urinalysis results reviewed with the patient today. We discussed importance of hydration relation to nephrolithiasis as well as overall health and well being. Will continue with surveillance monitoring at this time. She otherwise offers no issues or concerns at this time. [facility] Medical History Renal calculi Irritable bowel syndrome Microscopic hematuria Eczema GERD (gastroesophageal reflux disease) Bursitis of heel Achilles tendinitis Juvenile xanthogranuloma Pilar cysts Hypercholesterolemia Kidney stones Osteoarthritis of right knee Osteoarthritis of left knee Hypertension Diabetes mellitus Surgical History History of surgery Hx of total knee arthroplasty (~2017) History of tubal ligation Social History Household Members: None Housing: Apartment Alcohol intake: never Patient Tobacco Use Status: Never used Tobacco Current occupational status: disabled Female Reproductive History Menstrual Age of Menarche: 13 Review of Systems Const Reports as per HPI Eyes Reports no additional complaints ENT Reports no additional complaints Card Reports no additional complaints Resp Reports no additional complaints GI Reports no additional complaints Reports as per HPI Musc Reports no additional complaints Neuro Reports no additional complaints Psych Reports no additional complaints Endo Reports as per HPI Óscar/Lymph Reports no additional complaints Aller/Immun Reports no additional complaints Physical Exam Const General: cooperative, comfortable, no acute distress, well developed, alert and awake Nutritional Appearance: overweight Orientation/consciousness: patient oriented x3 Limitations: ambulation with cane HEENT Head: Yes normal to inspection, Yes normocephalic and Yes atraumatic Ears: hearing grossly normal bilaterally Eyes General: appearance normal, both eyes and all related structures Neck Neck: Yes normal visual inspection and Yes trachea midline Chest Chest palpation & inspection: normal inspection of the chest Resp Effort & Inspection: normal respiratory effort and able to speak in complete sentences Cardio Rate: regular rate Skin General skin exam: no rashes or lesions noted Neuro General: patient oriented x3 Extrem General: Yes normal to inspection Psych Appearance: grossly normal and well kempt Mental Status: mental status grossly normal Speech and movement: Normal speech and movement present and Clear speech present Affect: normal affect Attitude: cooperative Thought process: Normal thought process present Thought content: Normal thought content present Insight: Fair insight present (Psych) Judgement: Fair judgement present (Psych) Results AMB Urinalysis, Automated UA Leukoctes 15 Cindy/uL Last Edit by [employer] on 03/27/24 10:20 UA Nitrite Negative Last Edit by [employer] on 03/27/24 10:20 UA Urobilinogen 0.2 mg/dL Last Edit by [employer] on 03/27/24 10:20 UA Protein 15 mg/dL Last Edit by [employer] on 03/27/24 10:20 UA pH 6.0 Last Edit by [employer] on 03/27/24 10:20 UA Blood 0 Bridger/uL Last Edit by [employer] on 03/27/24 10:20 UA Specific [place] 1.015 Last Edit by [employer] on 03/27/24 10:20 UA Ketone Negative Last Edit by [employer] on 03/27/24 10:20 UA Bilirubin 0 mg/dL Last Edit by [employer] on 03/27/24 10:20 UA Glucose 0 mg/dL Last Edit by [employer] on 03/27/24 10:20 Results Reviewed Results Reviewed: Laboratory Last Values Urine pH (Auto) 6.0 03/27/24 10:18 Specific [place] (Auto) 1.015 03/27/24 10:18 Urine Protein (Auto) 15 mg/dL 03/27/24 10:18 Glucose (UA)(Auto) 0 mg/dL 03/27/24 10:18 Urine Ketones (Auto) Negative 03/27/24 10:18 Urine Blood (Auto) 0 Bridger/uL 03/27/24 10:18 Urine Nitrite (Auto) Negative 03/27/24 10:18 Urine Bilirubin (Auto) 0 mg/dL 03/27/24 10:18 Urine Urobilinogen (Auto) 0.2 mg/dL 03/27/24 10:18 Leukocyte Esterase (Auto) 15 Cnidy/uL 03/27/24 10:18 Date of Service: 03/14/24 EXAMINATION: US RETROPERITONEAL COMPLETE (RENAL) FINDINGS: RIGHT KIDNEY: 10.0 x 4.4 x 4.4 cm (SAG x AP x TRV). No hydronephrosis. Lower pole 4 mm and 2 mm renal calculi. Renal cortical thickness is normal. Limited visualization. LEFT KIDNEY: 12.1 x 5.5 x 4.4 cm (SAG x AP x TRV). No hydronephrosis. Left renal lower pole echogenic focus likely represents artifact rather than a tiny calculus. No obstructing renal calculi. Renal cortical thickness is normal. Limited visualization. IMPRESSION: Right nephrolithiasis. Left renal lower pole echogenic focus likely represents artifact rather than a tiny calculus. No hydronephrosis. No midline shift Assessment & Plan Assessment & Plan (1) Flank pain: Code(s): R10.9 - Unspecified abdominal pain Category: Medical (2) Renal calculi: Code(s): N20.0 - Calculus of kidney Category: Medical Plan In office urinalysis results reviewed with the patient today; as noted above. Recent renal imaging results reviewed with the patient today; as noted above. Discussed, educated, and stressed the importance of adequate hydration relation to nephrolithiasis as well as overall health and well-being. Patient currently denies any bothersome urinary issues. She reports be happy with current voiding parameters. Will obtain renal ultrasound and KUB in 6 months. Discussed adding 1 oz of lemon juice to water daily. Continue vitamin B6 as discussed and prescribed. Follow-up in 6 months with imaging to be completed prior; or sooner with any issues, concerns, and or questions. Orders: Orders AMB Urinalysis Automated Today Z13.9 - Encounter for screening, unspecified US renal BI 6 Months N20.0 - Calculus of kidney XR KUB 6 Months N20.0 - Calculus of kidney Medications: Discontinued pyridoxine (vitamin B6) Discontinued Reason: Duplicate PO DAILY Patient Instructions: The patient had an opportunity to ask questions regarding the treatment plan. All questions were answered. Physical exam, labs, and imaging were discussed and reviewed in detail. As well as risks, benefits, and discussion of treatment choices. No major barriers to understanding were identified. The patient expressed understanding and agreement with the above treatment plan. The patient was made aware they should contact our office by phone for worsening of their current condition, the appearance of new symptoms, or with any questions or concerns. Compliance is encouraged with any medications and follow up testing that is ordered. It is a privilege to be allowed the opportunity to participate in? your urological care.? Again, if you have any questions or concerns If you have any questions or concerns please do not hesitate to contact me. The office is [phone]. This note is constructed using voice recognition software. While every effort has been made to ensure accuracy mixing operator errors may have been included. Yours sincerely, MOSES Graham Coding Level of Care Code Est Pt Level 3 (82777) Complex EM visit Add On G2211 Diagnoses Flank pain R10.9 Renal calculi N20.0
== END 2024-03-27 10:31 | disposition home or self-care (01) ==
LOC: HO.HUSH 10:00
PROVIDERS: PCP General Practice; Visit Provider Nurse Practitioner Family
DX: R10.9 Unspecified abdominal pain (principal); N20.0 Calculus of kidney; Z13.9 Encounter for screening, unspecified
CPT/HCPCS: 99213; G2211

== ENCOUNTER → 2024-03-27 10:00 | Outpatient (BNVA) | payer OTHER, SELFPAY | PROVIDERS: PCP General Practice; Visit Provider Nurse Practitioner Family | DX: R10.9 Unspecified abdominal pain (principal); N20.0 Calculus of kidney | CPT/HCPCS: 81003; 99212 ==

== ENCOUNTER 2024-04-06 10:14 | Outpatient (AMB) | payer OTHER, SELFPAY ==
--- NOTE | 2024-04-06 10:29 | A.OFFVIS_ITS ---
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) [employer] Officer Name: Genaro Accompanied by: Son Allergies Penicillins [PENICILLINS] Allergy (Intermediate, Verified 04/06/24 10:33) HIVES fluticasone [From Advair Diskus] Allergy (Mild, Verified 04/06/24 10:33) Unknown potassium Allergy (Mild, Verified 04/06/24 10:33) Unknown salmeterol [From Advair Diskus] Allergy (Mild, Verified 04/06/24 10:33) Unknown Medication List - Last Reconciled 04/06/24 by Dasha Rodrigues MD albuterol sulfate 90 mcg/actuation (Ventolin HFA) 2 puffs PO Q4-6H PRN albuterol sulfate mg inhalation TID amlodipine 5 mg PO DAILY aspirin (Adult Low Dose Aspirin) 81 mg PO DAILY blood sugar diagnostic (FreeStyle Lite Strips) As directed calcium carbonate-vitamin D3 500 mg-5 mcg (200 unit) (Oyster Shell Calcium- Vitamin D3) 1 tab PO DAILY cholecalciferol (vitamin D3) 50 mcg PO DAILY cyclobenzaprine 5 mg PO BEDTIME PRN dapagliflozin propanediol (Farxiga) 10 mg PO DAILY fluticasone furoate 200 mcg/actuation (Arnuity Ellipta) 1 inh inhalation DAILY fluticasone propionate 220 mcg/actuation (Flovent HFA) 1 puff PO BID fluticasone propionate 50 mcg/actuation 2 sprays intranasal DAILY PRN gabapentin 100 mg PO BID irbesartan 300 mg PO DAILY isosorbide mononitrate ER 30 mg PO DAILY lancets (TRUEplus Lancets) As directed loratadine 10 mg PO DAILY meloxicam 7.5 mg PO BID metformin ER 1,000 mg PO montelukast 10 mg PO DAILY omeprazole 40 mg (2 x 20 mg) PO DAILY pyridoxine (vitamin B6) 100 mg PO DAILY 90 days rosuvastatin 10 mg PO DAILY simethicone 125 mg PO TID-QID PRN HPI Comments Details: 68 y/o female patient presents for follow up of TERENCE on CPAP. The CPAP compliance and therapy response (09/04/23-10/03/23) reviewed. She is on CPAP at [id number]. The usage days 100% and the average usage hours 6 hrs. The AHI was 1.7/hr. She feels refreshes in the morning and daytime sleepiness has improved. She is using nasal mask but wants to try full face mask. Her nasal mask causes her nose very dry. And also she feels the pressure is too high for her. [facility] Medical History Renal calculi Irritable bowel syndrome Microscopic hematuria Eczema GERD (gastroesophageal reflux disease) Bursitis of heel Achilles tendinitis Juvenile xanthogranuloma Pilar cysts Hypercholesterolemia Kidney stones Osteoarthritis of right knee Osteoarthritis of left knee Hypertension Diabetes mellitus Surgical History History of surgery Hx of total knee arthroplasty (~2017) History of tubal ligation Social History Household Members: None Housing: Apartment Alcohol intake: never Patient Tobacco Use Status: Never used Tobacco Current occupational status: disabled Female Reproductive History Menstrual Age of Menarche: 13 Review of Systems ENT Reports Normal hearing present Neuro Reports Normal hearing present Physical Exam Vital Signs: Last Vital Signs Pulse 71 04/06/24 10:34 BP 124/60 04/06/24 10:34 Pulse Ox 96 04/06/24 10:34 Oxygen Delivery Method Room Air 04/06/24 10:34 BMI result Body Mass Index 47.1 Const General: cooperative Nutritional Appearance: obese Orientation/consciousness: patient oriented x3 Limitations: language barrier Resp Effort & Inspection: normal respiratory effort and able to speak in complete sentences Neuro General: patient oriented x3 and moves all extremities Cranial nerves: Yes Normal facial strength present, Yes Midline tongue present, Yes Symmetric palate elevation present, Yes Normal hearing present, Yes Ability to bilaterally rotate head present and Yes Ability to bilaterally elevate shoulders present Cognition (Neuro): normal cognition Motor exam (neuro): 5/5 motor strength present throughout Psych Appearance: grossly normal Mental Status: mental status grossly normal Speech and movement: Normal speech and movement present Affect: normal affect Attitude: cooperative Assessment & Plan Assessment & Plan (1) TERENCE (obstructive sleep apnea): Comment: Severe degree of TERENCE with increased severity in REM. The total AHI was 24/hr, REM AHI was 39/hr with oxygen akila was 76% Code(s): G47.33 - Obstructive sleep apnea (adult) (pediatric) Category: Medical Plan Continue to use CPAP as patient experiences good clinical effects, better quality sleep and daytime sleepiness has improved. Patient unhappy with [facility] - [facility] Stressed compliance, use CPAP nightly and more than 4 hours. Wt reduction advised. Coding Level of Care Code Est Pt Level 4 (36876) Diagnoses TERENCE (obstructive sleep apnea) G47.33
[2024-04-06 10:34] VITALS: BP 124/60; PULSE 71; O2SAT 96; BMI 47.1
== END 2024-04-06 10:55 | disposition home or self-care (01) ==
PROVIDERS: PCP General Practice; Visit Provider Psychiatry & Neurology Neurology
DX: G47.33 Obstructive sleep apnea (adult) (pediatric) (principal)
CPT/HCPCS: 99214

== ENCOUNTER → 2024-04-06 10:14 | Outpatient (BNVA) | payer OTHER, SELFPAY | PROVIDERS: PCP General Practice; Visit Provider Psychiatry & Neurology Neurology | DX: G47.33 Obstructive sleep apnea (adult) (pediatric) (principal) | CPT/HCPCS: 99212 ==

== ENCOUNTER 2024-04-12 09:09 | Outpatient (REF) | payer OTHER, SELFPAY ==
--- NOTE | ~2024-04-12 | XR_ITS ---
EXAMINATION: XR SHOULDER, LEFT CLINICAL INFORMATION: Atraumatic shoulder pain COMPARISON: None available. TECHNIQUE: AP external rotation, Grashey, scapular Y, and axillary views of the left shoulder. FINDINGS: Mild glenohumeral and acromioclavicular osteoarthritis. No fracture or malalignment. No suspicious bone lesion or soft tissue calcification. XR/XR shoulder LT min 2V IMPRESSION: Mild glenohumeral and acromioclavicular osteoarthritis. Electronically signed by: Gregory Briseno MD 04/12/2024 10:16 AM EDT
== END 2024-04-12 09:10 | disposition home or self-care (01) ==
LOC: HO.HHCX 09:09
PROVIDERS: Visit Provider Emergency Medicine
DX: M25.512 Pain in left shoulder (principal)
CPT/HCPCS: 73030

== ENCOUNTER 2024-05-04 08:50 | Outpatient (AMB) | payer OTHER, SELFPAY ==
[2024-05-04 08:52] VITALS: BMI 47.1
--- NOTE | 2024-05-04 08:52 | A.OFFVIS_ITS ---
Vital Signs 05/04/24 08:52 Height 4 ft 11 in Weight 233 lb BMI 47.1 Intake Visit Reasons: New Problem - Left shoulder pain Intake Note: Karon is a 69 year old right hand dominant female who presents today for a new problem visit with complaints of left shoulder pain. Patient reports that she has had ongoing shoulder pain for about 1 month now. She is requesting an inj ection. Allergies Penicillins [PENICILLINS] Allergy (Intermediate, Verified 05/04/24 08:53) HIVES fluticasone [From Advair Diskus] Allergy (Mild, Verified 05/04/24 08:53) Unknown potassium Allergy (Mild, Verified 05/04/24 08:53) Unknown salmeterol [From Advair Diskus] Allergy (Mild, Verified 05/04/24 08:53) Unknown HPI HPI New Problem - Left shoulder pain: Details: Karon is a 69 year old right hand dominant female who presents today for a new problem visit with complaints of left shoulder pain. Patient reports that she has had ongoing shoulder pain for about 1 month now. She is requesting an injection. She has pain at night pain with overhead lifting. She denies injury. [facility] Medical History Renal calculi Irritable bowel syndrome Microscopic hematuria Eczema GERD (gastroesophageal reflux disease) Bursitis of heel Achilles tendinitis Juvenile xanthogranuloma Pilar cysts Hypercholesterolemia Kidney stones Osteoarthritis of right knee Osteoarthritis of left knee Hypertension Diabetes mellitus Surgical History History of surgery Hx of total knee arthroplasty (~2017) History of tubal ligation Social History Household Members: None Housing: Apartment Alcohol intake: never Patient Tobacco Use Status: Never used Tobacco Current occupational status: disabled Female Reproductive History Menstrual Age of Menarche: 13 Physical Exam Vital Signs: BMI result Body Mass Index 47.1 Extrem Other: Painful empty can and positive [employer]. External rotation 45 degrees. Abduction to 90. Forward flexion to 130 with pain. Office Procedures Joint Injection/Aspiration Joint Injection/Aspiration Details: Injected 1 mL of Decadron and 3 mL 1% lidocaine and 3 mL of 0.25% Marcaine. Site was prepped using aseptic technique. Patient tolerated the procedure well. Primary Site: left shoulder Approach Used: posterolateral Coding 97097 - Large joint Procedure code (CPT) selection complete Results Reviewed Results Reviewed: I personally reviewed relevant radiographs. Mild glenohumeral and AC joint arthritis Assessment & Plan Assessment & Plan (1) Impingement syndrome, shoulder, left: Code(s): M75.42 - Impingement syndrome of left shoulder Category: Medical Plan: This is a 69-year-old woman with left shoulder impingement syndrome. I injected her left shoulder. I recommend physical therapy. She does not want to do physical therapy at this time. She will let me know if that changes. Plan I injected her left shoulder today, she should follow up no sooner than three months for repeat injections Coding Level of Care Code Est Pt Level 3 (53496) Diagnoses Impingement syndrome, shoulder, left M75.42 CPT Codes Coding - Large joint: 80016 - Large joint ([id number])
== END 2024-05-04 09:12 | disposition home or self-care (01) ==
PROVIDERS: PCP General Practice; Visit Provider Orthopaedic Surgery
DX: M75.42 Impingement syndrome of left shoulder (principal)
CPT/HCPCS: 20610; 99213

== ENCOUNTER → 2024-05-04 08:50 | Outpatient (BNVA) | payer OTHER, SELFPAY | PROVIDERS: PCP General Practice; Visit Provider Orthopaedic Surgery | DX: M25.512 Pain in left shoulder (principal); M75.42 Impingement syndrome of left shoulder | CPT/HCPCS: 20610; 99212; J0665; J1100; J2003 ==

== ENCOUNTER 2024-05-25 09:42 | Outpatient (REF) | payer OTHER, SELFPAY ==
[2024-05-25 11:27] LABS: Alanine Aminotransferase 36 U/L (0-31); Alkaline Phosphatase 106 U/L (39-117); Anion Gap 9 (12-20); Aspartate Amino Transferase 27 U/L (5-31); Bilirubin Total 0.4 mg/dL (0.0-1.0); Blood Urea Nitrogen 17 mg/dL (9-16); Calcium 9.6 mg/dL (8.4-10.2); Carbon Dioxide 27 mmol/L (22-29); Chloride 105 mmol/L (96-108); Cholesterol 210 mg/dL (<200); Estimated Glomerular Filt Rate 53; Glucose Random 240 mg/dL (60-115); HDL Cholesterol 41 mg/dL (>40); LDL Cholesterol Calculated 116 mg/dL (<100); Potassium 4.4 mmol/L (3.3-5.1); Sodium 137 mmol/L (135-145); Total Protein 7.2 g/dL (6.5-8.0); Triglycerides 266 mg/dL (<150)
[2024-05-25 11:47] LABS: ~HepC Num1 0.12 S/CO (0.00-0.79); ~Hepatitis C Antibody Nonreactive (Nonreactive)
[2024-05-25 12:12] LABS: Creatinine Urine 85.32 mg/dL; Microalbum/Creatinine Ratio Ur 26.9 ug/mg cr (<30)
== END 2024-05-25 09:43 | disposition home or self-care (01) ==
LOC: HO.HHCL 09:42
PROVIDERS: Visit Provider General Practice
DX: E11.40 Type 2 diabetes mellitus with diabetic neuropathy, unspecified (principal)
CPT/HCPCS: 36415; 80053; 80061; 82043; 82570; 86803

== ENCOUNTER 2024-06-30 08:11 | Outpatient (AMB) | payer OTHER, SELFPAY ==
--- NOTE | 2024-06-30 08:21 | MHC.OFFVIS ---
Vital Signs 06/30/24 08:37 Height 4 ft 11 in Weight 228 lb 13.437 oz BMI 46.2 BP 104/56 L Blood Pressure Location Lt brachial Position Sitting Pulse 82 Pulse Source Pulse Oximeter Pulse Oximetry (%) 97 Oxygen Delivery Method Room Air Intake Visit Reasons: gas bloat syndrome Intake Note: ESTABLISHED PATIENT Karon presents in office today for a scheduled 9 mos FUV. Meds and Allergies reviewed? Y No recent or relevant surgeries? N Any significant concerns or new changes? Pt prev saw Adeline and is re-establishing. Reflux still present w/ epigastric pain. Pt still taking omeprazole which helps alleviate severity. Pharmacy verified? [facility] Pharmacy. Hook And Eye Attacher Required: Yes Hook And Eye Attacher Services: Hook And Eye Attacher Present Hook And Eye Attacher Name: [id number] Ninet Information Interpreted: non-clinical & clinical Allergies Penicillins [PENICILLINS] Allergy (Intermediate, Verified 06/30/24 08:31) HIVES fluticasone [From Advair Diskus] Allergy (Mild, Verified 06/30/24 08:31) Unknown potassium Allergy (Mild, Verified 06/30/24 08:31) Unknown salmeterol [From Advair Diskus] Allergy (Mild, Verified 06/30/24 08:31) Unknown HPI HPI gas bloat syndrome: Details: LAST VISIT with Evan TREJO A 68-year-old female chronic abdominal pain follows up she was last seen April 2023 at which time symptoms have been well managed She says she just wants to catch up- feels like a baby moving around- she eats everything- does not omit any foods-she eats a lot of beans - passing gas Reviewed diet- No nausea, vomiting, hematemesis, hematochezia fever chills TODAY'S VISIT: Patient is here today for follow-up. Multiple appointment rescheduled due to previous provider out on medical leave and no longer in the practice at this time. Patient continues with chronic symptoms as described above. Postprandial abdominal bloating. Patient reports to be feeling very gassy with almost anything she eats. Patient feels like when she then drinks water she has abdominal bloating. Epigastric pain previously tested for H pylori and that was negative. Patient was found to have gallbladder polyps with no intubation seen by surgeon. Patient's plan is mainly in the left upper quadrant and has been like this since 1st seen by Hannah TREJO. in February of 2023 patient had repeated ultrasound that showed no gallbladder polyp, however multiple mobile stones without cholecystitis. Increase echogenicity of the liver without any lesion or cysts. Currently patient is not following any particular diet. Patient denies any nausea or vomiting. Denies melena, hematochezia, unintentional weight loss or ribbon like stools. Patient denies any dyspepsia, dysphagia or odynophagia. Frequent epigastric burning, currently taking omeprazole daily. Patient had normal ALT and elevated AST 12/15/21 06/18/23 05/25/24 07:25 10:05 09:46 ALT 25 34 H 36 H PFSH Medical History Renal calculi Irritable bowel syndrome Microscopic hematuria Eczema GERD (gastroesophageal reflux disease) Bursitis of heel Achilles tendinitis Juvenile xanthogranuloma Pilar cysts Hypercholesterolemia Kidney stones Osteoarthritis of right knee Osteoarthritis of left knee Hypertension Diabetes mellitus Surgical History History of surgery Hx of total knee arthroplasty (~2017) History of tubal ligation Social History Household Members: None Housing: Apartment Alcohol intake: never Patient Tobacco Use Status: Never used Tobacco Current occupational status: disabled Female Reproductive History Menstrual Age of Menarche: 13 Review of Systems Const Denies weight gain and Denies weight loss ENT Reports no additional complaints, Denies dysphagia and Denies odynophagia Card Reports no additional complaints Resp Reports no additional complaints GI Reports abdominal pain (LUQ), Denies belching, Denies melena, Reports bloating, Denies change in bowel habits, Denies dysphagia, Denies excessive flatus, Denies dyspepsia, Reports heartburn, Denies diarrhea, Denies loose stools, Denies nausea, Denies odynophagia and Denies vomiting Reports no additional complaints Musc Reports no additional complaints Neuro Reports no additional complaints Psych Reports no additional complaints Endo Reports no additional complaints Physical Exam Vital Signs: Last Vital Signs Pulse 82 06/30/24 08:37 BP 104/56 L 06/30/24 08:37 Pulse Ox 97 06/30/24 08:37 Oxygen Delivery Method Room Air 06/30/24 08:37 BMI result Body Mass Index 46.2 Const General: healthy appearing and no acute distress Nutritional Appearance: obese Orientation/consciousness: patient oriented x3 Resp Effort & Inspection: normal respiratory effort, able to speak in complete sentences, no tracheal deviation and symmetric chest movement Auscultation: clear to auscultation bilaterally Cardio Rate: regular rate GI Inspection: Yes normal to inspection and No distended Palpation (GI): Soft to palpation, not firm, nontender and No hepatosplenomegaly present Auscultation: normal bowel sounds General: Yes no CVA tenderness Back/Spine/Pelvis Back: no CVA tenderness Skin General skin exam: elasticity normal, turgor normal and dry skin Neuro General: patient oriented x3 Psych Appearance: grossly normal Mental Status: mental status grossly normal Thought process: Normal thought process present Assessment & Plan Assessment & Plan (1) Gallbladder polyp: Code(s): K82.4 - Cholesterolosis of gallbladder Category: Medical (2) Irritable bowel syndrome: Code(s): K58.9 - Irritable bowel syndrome, unspecified Category: Medical Qualifiers: Irritable bowel syndrome type: without diarrhea Qualified Code(s): K58.9 - Irritable bowel syndrome, unspecified (3) GERD (gastroesophageal reflux disease): Code(s): K21.9 - Gastro-esophageal reflux disease without esophagitis Category: Medical Qualifiers: Esophagitis presence: esophagitis presence not specified Qualified Code(s): K21.9 - Gastro-esophageal reflux disease without esophagitis (4) LUQ pain: Code(s): R10.12 - Left upper quadrant pain Category: Medical (5) Postprandial abdominal bloating: Code(s): R14.0 - Abdominal distension (gaseous) Category: Medical Plan Continue avoiding dietary triggers. Discussed with patient low FODMAP diet. Patient is unable to read and she will show her FODMAP diet instructions to her daughter who will help her. Continue omeprazole. Will check lipase, vitamin-D, B12 and folate. Will also do abdominal ultrasound with liver elastography. Long discussion about avoiding food high in fat, carbs. Eat more protein and vegetables. Follow-up in 4 months, sooner on as needed basis. She is agreeable to this plan and verbalizes understanding of instructions. She was given the opportunity to ask questions and all questions answered. Thank you for allowing me to participate in her care Orders: Orders Lipase Today R10.9 - Unspecified abdominal pain Vitamin D 25-OH (D2 and D3) Today E55.9 - Vitamin D deficiency, unspecified Vitamin B12 and Folate Today R19.7 - Diarrhea, unspecified US abdomen martines w elastography Today K76.0 - Fatty (change of) liver, not elsewhere classified Coding Level of Care Code Est Pt Level 4 (62382) Complex EM visit Add On G2211 Diagnoses Gallbladder polyp K82.4 Irritable bowel syndrome without diarrhea K58.9 Irritable bowel syndrome type: without diarrhea Gastroesophageal reflux disease, unspecified whether esophagitis present K21.9 Esophagitis presence: esophagitis presence not specified LUQ pain R10.12 Postprandial abdominal bloating R14.0 Time Spent (min) 40 Comment 25 minutes spent with patient and additional 15 minutes spent reviewing her records
[2024-06-30 08:37] VITALS: BP 104/56; PULSE 82; O2SAT 97; BMI 46.2
== END 2024-06-30 10:03 | disposition home or self-care (01) ==
PROVIDERS: PCP General Practice; Visit Provider Nurse Practitioner Family
DX: K82.4 Cholesterolosis of gallbladder (principal); K58.9 Irritable bowel syndrome, unspecified; K21.9 Gastro-esophageal reflux disease without esophagitis; R10.12 Left upper quadrant pain; R14.0 Abdominal distension (gaseous)
CPT/HCPCS: 99214; G2211

== ENCOUNTER → 2024-06-30 08:11 | Outpatient (BNVA) | payer OTHER, SELFPAY | PROVIDERS: PCP General Practice; Visit Provider Nurse Practitioner Family | DX: K82.4 Cholesterolosis of gallbladder (principal); K58.9 Irritable bowel syndrome, unspecified; K21.9 Gastro-esophageal reflux disease without esophagitis; K76.0 Fatty (change of) liver, not elsewhere classified; R10.12 Left upper quadrant pain; R14.0 Abdominal distension (gaseous); R19.7 Diarrhea, unspecified; E55.9 Vitamin D deficiency, unspecified | CPT/HCPCS: 99212 ==

== ENCOUNTER 2024-07-07 07:55 | Outpatient (REF) | payer OTHER, SELFPAY ==
[2024-07-07 08:45] LABS: Lipase 40 U/L (8-78)
[2024-07-07 09:21] LABS: Folate 9.2 ng/mL (> or = 4.0); Vitamin B12 193 pg/mL (200-900)
[2024-07-10 11:58] LABS: Vitamin D 25-OH, D2 <4 ng/mL; Vitamin D 25-OH, D3 51 ng/mL; Vitamin D 25-OH, Total 51 ng/mL (30-100)
== END 2024-07-07 07:56 | disposition home or self-care (01) ==
LOC: HO.LAB 07:55
PROVIDERS: PCP General Practice; Visit Provider Nurse Practitioner Family
DX: E55.9 Vitamin D deficiency, unspecified (principal); R19.7 Diarrhea, unspecified; R10.9 Unspecified abdominal pain
CPT/HCPCS: 36415; 82306; 82607; 82746; 83690

== ENCOUNTER 2024-07-25 07:18 | Outpatient (REF) | payer OTHER, SELFPAY ==
--- NOTE | ~2024-07-25 | US_ITS ---
EXAMINATION: US ABDOMEN LIMITED WITH LIVER ELASTOGRAPHY HISTORY: K76.0 - Fatty (change of) liver, not elsewhere classified TECHNIQUE: Real-time grayscale ultrasound imaging of the abdomen was performed and images were reviewed. COMPARISON: Comparison is made with the prior examination dated 02/17/2023. FINDINGS: Liver: The liver is normal in size, but demonstrates increased echotexture, consistent with steatosis. No focal mass or intrahepatic biliary ductal dilatation is identified. There is normal hepatopedal flow in the portal vein. Ultrasound elastography of the liver was performed with 10 separate measurements of the liver parenchyma with the patient in the supine position. Measurements were obtained approximately 2 cm below Elenita's capsule and perpendicular to the capsule. Images are of satisfactory quality. The median shear wave velocity is 1.23 m/s. The interquartile range/median (IQR/median) is 0.35. Gallbladder and biliary tree: There are shadowing calculi in the gallbladder. There is no wall thickening or pericholecystic fluid. There is no sonographic Mccallum sign. The common bile duct is normal in caliber measuring 4 mm. Right kidney: The right kidney measures 10.1 cm in length. The right kidney is unremarkable, without evidence of masses, hydronephrosis, or calculi. Pancreas: The pancreatic head, neck, and body are unremarkable. The pancreatic tail is obscured by bowel gas. Abdominal aorta and inferior vena cava: The visualized portions of the abdominal aorta and inferior vena cava are normal in caliber. There is no free fluid in the abdomen. US/US abdomen martines w elastography IMPRESSION: Hepatic steatosis. Cholelithiasis without evidence of acute cholecystitis. The median shear wave velocity is 1.23 m/s, corresponding to a median liver stiffness of 4.61 kPa. The IQR/median value is 0.35. This is indicative of a poor quality data set, and the estimated liver stiffness may be unreliable. Findings are indicative of a normal elastography value with a low likelihood of severe fibrosis or cirrhosis. REFERENCE: Society of Radiologists in Ultrasound Liver Stiffness Thresholds (2020): LIVER STIFFNESS THRESHOLDS: *Shear wave velocity less than 1.3 m/s (Liver Stiffness equal or less than 5 kPa): High probability of being normal. *Shear wave velocity less than 1.7 m/s (Liver Stiffness less than 9 kPa): In the absence of other known clinical signs, rules out compensated advanced chronic liver disease. *Shear wave velocity between 1.7-2.1 m/s (Liver Stiffness 9-13 kPa): Suggestive of compensated advanced chronic liver disease but need further test for confirmation. *Shear wave velocity between 2.1-2.4 m/s (Liver Stiffness 13-17 kPa): Rules in compensated advanced chronic liver disease. *Shear wave velocity greater than 2.4 m/s (Liver Stiffness over 17 kPa): Suggestive of clinically significant portal hypertension. QUALITY OF DATA SET: *IQR/Median value equal or less than 0.15 implies a quality data set. *IQR/Median value over 0.15 implies a poor quality data set. SIGNIFICANT CHANGE FROM PRIOR EXAM: Significant change if liver stiffness measurement is 10% or greater from prior exam. OTHER CONSIDERATIONS: The stage of liver fibrosis may be overestimated in the setting of acute hepatitis, liver inflammation, elevated liver function tests, hepatic vascular congestion, obstructive cholestasis, non-fasting state, and infiltrative diseases such as amyloidosis and lymphoma. In some patients with NAFLD, the liver stiffness thresholds for compensated advanced chronic liver disease may be lower. In causes other than viral hepatitis and NAFLD, liver stiffness thresholds are not well established. Electronically signed by: Celso Dumas MD 07/25/2024 03:20 PM [facility] [place]
== END 2024-07-25 07:19 | disposition home or self-care (01) ==
LOC: HO.US 07:18
PROVIDERS: PCP General Practice; Visit Provider Nurse Practitioner Family
DX: K76.0 Fatty (change of) liver, not elsewhere classified (principal)
CPT/HCPCS: 76705; 76981

== ENCOUNTER → 2024-07-25 07:21 | Outpatient (BNV) | payer OTHER, SELFPAY | PROVIDERS: PCP General Practice; Visit Provider Radiology Diagnostic Radiology | DX: K76.0 Fatty (change of) liver, not elsewhere classified (principal) | CPT/HCPCS: 76981 ==

== ENCOUNTER 2024-09-07 10:40 | Outpatient (AMB) | payer OTHER, SELFPAY ==
--- NOTE | 2024-09-07 10:49 | A.OFFVIS_ITS ---
Intake Visit Reasons: Inj-right knee durolane injection Intake Note: Karon is a 69 year old female who presents today for a Right Knee Durolane Injection. Patient reports significant pain in the right knee Allergies Penicillins [PENICILLINS] Allergy (Intermediate, Verified 06/30/24 08:31) HIVES fluticasone [From Advair Diskus] Allergy (Mild, Verified 06/30/24 08:31) Unknown potassium Allergy (Mild, Verified 06/30/24 08:31) Unknown salmeterol [From Advair Diskus] Allergy (Mild, Verified 06/30/24 08:31) Unknown HPI HPI Inj-right knee durolane injection: Details: Karon is a 69 year old female who presents today for a Right Knee Durolane Injection. Patient reports significant pain in the right knee. [facility] Medical History Renal calculi Irritable bowel syndrome Microscopic hematuria Eczema GERD (gastroesophageal reflux disease) Bursitis of heel Achilles tendinitis Juvenile xanthogranuloma Pilar cysts Hypercholesterolemia Kidney stones Osteoarthritis of right knee Osteoarthritis of left knee Hypertension Diabetes mellitus Surgical History History of surgery Hx of total knee arthroplasty (~2017) History of tubal ligation Social History Household Members: None Housing: Apartment Alcohol intake: never Patient Tobacco Use Status: Never used Tobacco Current occupational status: disabled Female Reproductive History Menstrual Age of Menarche: 13 Physical Exam Extrem Other: Skin c/d/i TTP medial compartment Office Procedures Joint Inj/Aspir; Non-Pain Clin Joint Injection/Drain Details: Injected Durolane. Site was prepped using aseptic technique. Patient tolerated the procedure well. Shoulders, Hips, Knees, Knee Large Joint Injection 10293: Right Knee Coding Procedure code (CPT) selection complete Assessment & Plan Assessment & Plan (1) Arthritis of right knee: Code(s): M17.11 - Unilateral primary osteoarthritis, right knee Category: Medical Plan: Injected right knee Durolane wihtout complications. F/u 3-4 mo PRN Coding Level of Care Code Est Pt Level 3 (22560) Diagnoses Arthritis of right knee M17.11 CPT Codes Shoulders, Hips, Knees, - Knee Large Joint Injection : Right Knee ([id number])
--- OUTSIDE RECORDS SUMMARY | 2024-09-07 12:40 | XMS_ITS | Encounter Summary ---
Author Organization [email or web address] Address [address] [place] [address] [address] [place] [address] Care Team Providers Care Hide Stretcher Hand Name Role Phone Amina Nieves MD Primary Care Provider [phone] Reason for Visit * Reason Comments Med Refill Encounter Details Date Type Department Care Team ([facility] st Contact Info) Description 05/07/2023 Refill [facility] [address], [place] [phone] Amina Nieves MD [address], [place] [phone] Rash Social History Tobacco Use Types Packs/Day Years Used Date Smoking Tobacco: Never Passive Smoke Exposure: Never Smokeless Tobacco: Never Alcohol Use Standard Drinks/Week Comments Never 0 (1 standard drink = 0.6 oz pur e alcohol) Depression Answer Date Recorded Patient Health Questionnaire-9 Score 0 09/21/2022 Housing Stability Answer Date Recorded What is your housing situation today? I have tim rao 04/29/[address] you li ve. Do you have problems with any of the following? None of the above 04/29/2023 Food Insecurity Answer Date Recorded Within the past 12 months, y ou worried that your food would run out before you got money to buy more: Never True 04/29/2023 Within the past 12 months,th e food you bought just didn't last and you didn't have enough money to get more: Never True Transportation Answer Date Recorded In the past 12 months, has l ack of transportation kept you from medical appts, meetings, work or from getting things needed for daily living? No 04/29/2023 Utilities Answer Date Recorded In the past 12 months, has t he electric, gas, oil or water company threatened to shut off services in your home? No 04/29/2023 Depression Answer Date Recorded Patient Health Questionnaire-2 Score 0 09/21/2022 Comments Unknown Sex and Gender Information Value Date Recorded Sex Assigned at Female 05/11/2022 10:15 AM EDT Legal Sex Female 10:15 AM EDT Gender Identity Female 05/11/2022 10:15 AM EDT Sexual Orientation Straight 05/11/2022 10 :15 AM EDT documented as of this encounter Plan of Treatment Not on file documented as of this encounter Visit Diagnoses Diagnosis Rash Rash and other nonspecific skin eruption documented in this encounter Additional Health Concerns Assessment Noted Time PHQ-9 Depression Total Score: 0 09/22/19 23 10:45 AM EDT documented as of this encounter Care Teams Hide Stretcher Hand Relationship Specialty Start Date End Date Amina Nieves MD [address] [place] [id number] PCP - General Family Medicine 04/07/21 documented as of this encounter
--- OUTSIDE RECORDS SUMMARY | 2024-09-07 12:40 | XMS_ITS ---
Author Organization [facility] Address [address] [address] Care Team Providers Care [employer] Clerk Name Role Phone Carmen Santiago Primary Care Provider Unavailab Risa Castellanos Unavailable [phone] Allergies Allergen (clinical drug ingredient) Drug/Non Drug Allergy documented on EMR Reaction Allergy Type Onset Date Status amoxicillin Amoxicillin Unknown Drug Allergy Act parth Penicillin Unknown Drug Allergy Active REASON FOR VISIT At Risk Footcare, Skin problem(s) Medications Medication SIG (Take, Route, Frequency, Duration) Notes Start Date End Date Status Oyster Shell Calcium/D 500-200 MG-UNIT 1 tablet Orally Active Metoprolol Succinate 50 MG 1 capsule Orally Once a day for 30 day(s) Active Isosorbide Mononitrate ER 30 MG 1 tablet in the morning Orally Once a day for 30 day(s) Active Gabapentin 100 MG 1 capsule Orally Onc e a day for 30 day(s) Active Rosuvastatin Calcium 10 MG 1 tablet Orally Once a day for 30 day(s) Active Farxiga 10 MG 1 tablet Orally Once a day Active Aspirin 81 81 MG 1 tablet Orally Once a day for 30 day(s) Active Extra Depth Orthopedic Shoes (1 Pair) with Customized Heat Molded Multidensity Innersoles (3 Pair) as directed Dx: NIDDM/Polyneuropathy (E11.42), Hammertoe Foot Deformity (M20.41,M20.42), Preulcerative Skin Lesion(s) (L85.1 05/27/2020 Not-Taking amLODIPine Besylate 5 MG 1 tablet Orally Once a day for 30 day(s) Active Magnesium Active metFORMIN HCl ER 500 MG 1 tablet with ev ening meal Orally Once a day for 30 day(s) Active Irbesartan 300 MG 1 tablet Orally Once a day for 30 day(s) Active Extra Depth Orthopedic Shoes (1 Pair) with Customized Heat Molded Multidensity Innersoles (3 Pair) as directed Dx: NIDDM/Polyneuropathy (E11.42), Hammertoe Foot Deformity (M20.41,M20.42), Preulcerative Skin Lesion(s) (L85.1 05/28/2023 Active Vitamin D3 50 MCG (1999 UT) as directed Orally Once a day Active Social History Tobacco Use: Social History Observation Description Date Details (start date - stop date) Never Smoker NA - NA Tobacco Use/Smoking Question Answer Notes Are you a: nonsmoker Additional Findings: Tobacco Non-User Aggressive non-smoker Alcohol Screen Question Answer Notes Did you have a drink containing alcohol in the p ast year? No Points 0 Interpretation Negative Tobacco use other than smoking: Question Answer Notes Are you an other tobacco user? No Vital Signs Height 4ft 11in in 06/30/2024 Weight 235 lbs 06/30/2024 BMI 47.46 kg/m2 06/30/2024 Blood pressure systolic 160 mm Hg 06/30/20 24 Blood pressure diastolic 70 mm Hg 024 Encounters Encounter Location Date Provider Diagnosis [facility] [address] [address] 06/30/2024 Risa Chen Type 2 diabetes mellitus with diabetic polyneuropathy E11.42 and Xerosis of skin L85.3 Assessments Encounter Date Diagnosis (ICD Code) Assessment Notes Treatment Notes Treatment Clinical Notes Section Notes 06/30/2024 Type 2 diabetes mellitus with diabetic polyneuropathy (ICD-10 - E11.42) 06/30/2024 Xerosis of skin (ICD-10 - L85.3) Plan Of Treatment Next Appt Details Follow Up: 2 Months, Reason: Provider Name:Risa singh, 09/13/2024 10:45:00 AM, [address] [place] [address], [id number], Procedure Notes * Category Sub-Category Detail Notes Keratoma Treatment Parring or Cutting o f Benign Hyperkeratotic Lesion(s) (-57) More than 4 Lesions - Due to the at risk nature of the patients medical condition as documented in the exam findings, performance of this keratoderma treatment is medically necessary as its management by an unskilled/untrained nonprofessional would put this patients foot and overall health at risk. Therefore, the benign hyperkeratotic lesions, ( 8) in total, locations as stated and described in the exam ( TA, T5 SUB MTH (s) 1 5 B/L Heel(s) B/L ,), were pared, and/or cut utilizing a sterile 15 blade, tissue nippers, and/or power dremel instrumentation by the physician of record - 55242 Nail Reduction Nail Reduction Trimming of dyst rophic nails performed to reduce/remove overall nail length and girth, by manual and electrical means with use of a nail nipper and/or dremel, to more viable healthy nail plate or bed tissue 6-10 (G0127) Progress Notes * Cheri ARELLANOsDOB: [birth year] (69 yo F)Acc No.[id number]:06/30/2024 Progress Note Patient:?Karon ARELLANO Provider:?Risa Chen DPM :1955???Age:69 Y???Sex:Female D ate:06/30/2024 Address:[address] [place] [address], [facility] Pcp:Carmen Santiago Subjective: * Chief Complaints: * ???At Risk FootcareSkin prob lillian(s) * HPI: ???At Risk footcare:?Pt States Last PCP Visit:?Date?12/11/2023 ?Pt presents with daughter who provides translation. ???Skin problems:?Nature:?dryness , scaling.?Location:?B/L .?Duration:?a few months.?Course:?worse.? * ROS:?General/Constitutional:?Nausea?denies.?Vomiting?denies.?Hunger Thirst?denies.?Loss appetite?denies.?Chills?denies.?Fatigue?denies.?Fever?denies.?Night Sweats?denies.?Unexplained weight loss?denies.?Unexplained weight gain?denies.?HEENTM:?Dentures?denies.?Dizziness?denies.?Glasses/contacts?denies.?Retinopathy?de nies.?Blurred/double vision?denies.?TMJ?denies.?Discharge/drainage?denies.?Implants?denies.?Sore throat?denies.?Dental implants?denies.?Hard of hearing ?denies.?Difficulty chewing/swallowing/speaking?denies.?Nose bleeds?denies.?Sore mouth?denies.?Respiratory:?On Oxygen?denies.?Pneumonia/pleurisy?denies.?Bronchitis?denies.?Emphysema?denies.?C oughing?denies.?Cough blood?denies.?Shortness of breath?denies.?Wheezing?denies.?Cardiovascular:?Pacemaker?denies.?MVP?denies.?WPW?denies.?CHF?denies.?Heart attack?denies.?Septal defect?denies.?Rapid beat?denies.?Chest pain ?denies.?Atrial Fib.?denies.?Murmur/Palpitations?denies.?Gastrointestinal:?Hemorrhoids?denies.?Stomach/Abdominal pain?denies.?Dark blood stool?denies.?Irritable bowel ?denies.?Constipation?denies.?Diarrhea?denies.?Hematology:?Swelling?denies.?Clots?denies.?Varicose Veins?denies.?Bruising?denies.?Bleeding problem?denies.?Genitourinary:?Blood urine?denies.?Frequent/Painfu/urination/bladder control?denies.?Kidney stones?denies.?Infection (UTI)?denies.?Nephropathy?denies.?sex trans dis (STD)?denies.?Prostate?denies.?Musculoskeletal:?Hammertoes?denies.?Bunions?denies.?Back Pain?denies.?Muscle Cramps/ Resting?denies.?Muscle cramps / walking?denies.?Generalized aches and pains?denies.?Weakness?denies.?Integ.:?Roberts?denies.?Scars?denies.?Corns/calluses?denies.?Ingrown nails?denies.?Painful nails?denies.?Open Sores?denies.?Rashes?denies.?Neurologic:?Difficulty sleeping?denies.?Brain disorder?denies.?Numbness?admits.?Balance trouble?denies.?Confusion?denies.?Fainting/blackouts?denies.?Tingling?admits.?Tr emors?denies.? * Medical History:? * Surgical History:?Denies Pas t Surgical History * Hospitalization/Major Diagno stic Procedure:?Denies Past Hospitalization * Family History:?Mother: dece ased.?Father: , diagnosed with Other malignant neoplasm of unspecified site.?Son(s): diagnosed with Unspecified essential hypertension, Other specified conditions influencing health status.? * Social History:?Tobacco Use:?Tobacco Use/Smoking?Are you a:?nonsmoker ?Additional Findings: Tobacco Non-User?Aggressive non-smoker ?Tobacco use other than smoking?Are you an other tobacco user??No ???Drugs/Alcohol:?Drugs?Have you used drugs other than those for medical reasons in the past 12 months??No ?Alcohol Screen?Did you have a drink containing alcohol in the past year??No ?Points?0 ?Interpretation?Negative ???Miscellaneous:?Caffeine: yes, frequency:, 1-2 cups per day. ?Children: yes. ?Exercise: no. ?Marital status: . ?Occupation: Retired. * Medications:?TakingMagnesium amLODIPine Besylate 5 MG Tablet 1 tablet Orally Once a day Aspirin 81 81 MG Tablet Delayed Release 1 tablet Orally Once a day Farxiga 10 MG Tablet 1 tablet Orally Once a day Gabapentin 100 MG Capsule 1 capsule Orally Once a day Isosorbide Mononitrate ER 30 MG Tablet Extended Release 24 Hour 1 tablet in the morning Orally Once a day Metoprolol Succinate 50 MG Capsule ER 24 Hour Sprinkle 1 capsule Orally Once a day Oyster Shell Calcium/D 500-200 MG-UNIT Tablet 1 tablet Orally Rosuvastatin Calcium 10 MG Tablet 1 tablet Orally Once a day Irbesartan 300 MG Tablet 1 tablet Orally Once a day metFORMIN HCl ER 500 MG Tablet Extended Release 24 Hour 1 tablet with evening meal Orally Once a day Vitamin D3 50 MCG (1999 UT) Capsule as directed Orally Once a day Extra Depth Orthopedic Shoes (1 Pair) with Customized Heat Molded Multidensity Innersoles (3 Pair) as directed Dx: NIDDM/Polyneuropathy (E11.42), Hammertoe Foot Deformity (M20.41,M20.42), Preulcerative Skin Lesion(s) (L85.1 Taking Magnesium Taking amLODIPine Besylate 5 MG Tablet 1 tablet Orally Once a day Taking Aspirin 81 81 MG Tablet Delayed Release 1 tablet Orally Once a day Taking Farxiga 10 MG Tablet 1 tablet Orally Once a day Taking Gabapentin 100 MG Capsule 1 capsule Orally Once a day Taking Isosorbide Mononitrate ER 30 MG Tablet Extended Release 24 Hour 1 tablet in the morning Orally Once a day Taking Metoprolol Succinate 50 MG Capsule ER 24 Hour Sprinkle 1 capsule Orally Once a day Taking Oyster Shell Calcium/D 500-200 MG-UNIT Tablet 1 tablet Orally Taking Rosuvastatin Calcium 10 MG Tablet 1 tablet Orally Once a day Taking Irbesartan 300 MG Tablet 1 tablet Orally Once a day Taking metFORMIN HCl ER 500 MG Tablet Extended Release 24 Hour 1 tablet with evening meal Orally Once a day Taking Vitamin D3 50 MCG (2000 UT) Capsule as directed Orally Once a day Taking Extra Depth Orthopedic Shoes (1 Pair) with Customized Heat Molded Multidensity Innersoles (3 Pair) as directed Dx: NIDDM/Polyneuropathy (E11.42), Hammertoe Foot Deformity (M20.41,M20.42), Preulcerative Skin Lesion(s) (L85.1 Not-Taking/PRNExtra Depth Orthopedic Shoes (1 Pair) with Customized Heat Molded Multidensity Innersoles (3 Pair) as directed Dx: NIDDM/Polyneuropathy (E11.42), Hammertoe Foot Deformity (M20.41,M20.42), Preulcerative Skin Lesion(s) (L85.1 Medication List reviewed and reconciled with the patientNot-Taking/PRN Extra Depth Orthopedic Shoes (1 Pair) with Customized Heat Molded Multidensity Innersoles (3 Pair) as directed Dx: NIDDM/Polyneuropathy (E11.42), Hammertoe Foot Deformity (M20.41,M20.42), Preulcerative Skin Lesion(s) (L85.1 Medication List reviewed and reconciled with the patient * Allergies:?Leonid adrian[Allergies Verified] Objective: * Vitals:?Ht:4ft 11in, Wt:235, BMI:47.46, Shoe size:8, BP:160/70mm Hg, BS:162, Ht- cm: 149.86 cm, Wt-k.59 kg. * Examination: ???Ophthalmology Referral: ?DIABETES EYE EXAM?Procedure Performed:?No ?Findings of Diabetic Eye Exam:?no retinopathy?CQM Exceptions:: ?Hemoglobin A1c not performed?Reason:?No reason specified?Neurological: ?SENSORY:? Neurological exam demonstrates, reduced light touch sensation, reduced sharp/dull pin prick discrimination , reduced vibration sensation, reduced proprioception sensation, in a stocking fashion, 5.07 monofilament test performed at plantar aspects of 5 varied sites per foot shows sensation, reduced , B/L, Pt relates, burning, hyperesthesia, shooting/radiating sensation, B/L.?Nails: ?NAILS are:?1-5 B/L, nails are elongated, overgrown, dystrophic.?Dermatologic: ?SKIN FINDINGS:?Skin exam reveals Keratotic lesion(s) located at, TA, T5 SUB MTH (s) 1 5 B/L Heel(s) B/L , Skin STILL, shows sign(s) of, dryness, scaling, in a stocking fashion, no fissure(s) present, B/L.?Vascular: ?DP PULSES (B):?3/4, B/L.?PT PULSES (B):?3/4, B/L.?CAPILLARY FILL TIME:?immediate, all digits, B/L.?TROPHIC CONDITION-TEXTURE/ELASTICITY/TURGOR/HAIR GROWTH (B):?normal, B/L.?TEMPERTURE GRADIENT (C):?normal, warm to cool, proximal to distal, B/L, B/L.? Assessment: * Assessment: 1.?Type 2 diabetes mellitus with diabetic polyneuropathy - E11.42???2.?Xerosis of skin - L85.3 (Primary)???Specify :Acute problem, Uncomplicated (3),Rx Management (4)??? Plan: * Treatment: * Procedures:?Keratoma Treatment:?Parring or Cutting of Benign Hyperkeratotic Lesion(s)?(-57) More than 4 Lesions - Due to the at risk nature of the patients medical condition as documented in the exam findings, performance of this keratoderma treatment is medically necessary as its management by an unskilled/untrained nonprofessional would put this patients foot and overall health at risk. Therefore, the benign hyperkeratotic lesions, ( 8) in total, locations as stated and described in the exam (?TA,?T5?SUB MTH (s)?1?5?B/L?Heel(s)?B/L?,), were pared, and/or cut utilizing a sterile 15 blade, tissue nippers, and/or power dremel instrumentation by the physician of record - [id number].?Nail Reduction:?Nail Reduction?Trimming of dystrophic nails performed to reduce/remove overall nail length and girth, by manual and electrical means with use of a nail nipper and/or dremel, to more viable healthy nail plate or bed tissue 6-10 (G0127).? * Procedure Codes:?G0127 ASHLEIGH ING DYSTROPHIC NAILS ANY #, Modifiers: XS 00576 TRIM SKIN LESIONS, OVER 4, Modifiers: XS * Preventive Medicine:? ??Counseling:?Discussion:?-13: Office or other outpatient visit for the evaluation and management of an established patient, which required a medically appropriate history and/or examination and LOW level of DECISION MAKING for: 1 STABLE ACUTE UNCOMPLICATED PROBLEM, 2 OR MORE MINOR PROBLEMS, OR 1 STABLE CHRONIC PROBLEM, THAT POSE(S) A LOW RISK FOR MORBIDITY/MORTALITY. The visit on the day of the encounter encompassed interpreting the data and educating the patient as to the nature of their condition, treatment options available according to their individual PMH, meds, allergies, and overall health/living conditions, as well as any potential risks or complications that may occur from a failure to adhere to, and participate in, the recommended course of therapy. The discussion included a complete verbal, and/or written explanation of the examination results, any x-rays taken, the proposed diagnosis, and outline of the treatment plan. A schedule for future care needs was also explained. The patient verbalized an understanding of the instructions at this time and agreed to be an active participant in their treatment. If the patient should think of any questions or concerns after the visit, I have encouraged the patient to call the office.?Xerosis:?The patient was counseled on the diagnosis, potential etiologies, and treatment options for their skin condition. We discussed the risks and benefits of each option from performing no treatment, to utilizing OTC topical skin creams/ointments, to utilizing prescription topical creams/ointments, to utilizing customized compounded topical medications and use of nocturnal occlusion with any/all previously detailed therapies. We discussed the advantages and disadvantages of each possible treatment and importance for adherence to all the recommended therapies for optimum success and avoid potential complications such as open sore/infection/possible hospitalization. We discussed the potential effectiveness of each topical preparation as well as each ones possible side effects and/or patient medication interactions. Patient questions re: use, dosage, successful outcomes, and application consistency were reviewed and the patient verbalized that all answers were clearly understood. The patient has decided to apply Rx skin creams to their feet save the interspaces while paying special attention to the heels. Such was sent to their pharmacy at the time of visit.? * Follow Up:?2 Months * Images: * Sign off status: Completed true * Provider:?Risa Chen, DPM Date:? Generated for Cheryl bundy/Rashard/Pedro on:?09/07/2024 12:40 PM EST History and Physical Notes * HPI (History of Present Illness) Category Sub-Category Detail Notes Category Not es Skin problems Nature: dryness , scaling Location: B/L Duration: a few months Course: worse At Risk footcare Pt States Last PCP Visit: Date: 12/11/2023 Pt presents with janet whelan who provides translation Examination Category Sub-Category Detail Notes Category Not es Neurological SENSORY: Neurological exa m demonstrates, reduced light touch sensation, reduced sharp/dull pin prick discrimination , reduced vibration sensation, reduced proprioception sensation, in a stocking fashion, 5.07 monofilament test performed at plantar aspects of 5 varied sites per foot shows sensation, reduced , B/L, Pt relates, burning, hyperesthesia, shooting/radiating sensation, B/L Dermatologic SKIN FINDINGS: Skin exam reveal s Keratotic lesion(s) located at, TA, T5 SUB MTH (s) 1 5 B/L Heel(s) B/L , Skin STILL, shows sign(s) of, dryness, scaling, in a stocking fashion, no fissure(s) present, B/L Ophthalmology Referral DIABETES EYE EXAM Procedu re Performed:: No Findings of Diabetic Eye Exam:: no retin opathy Vascular DP PULSES (B): 3/4, B/L PT PULSES (B): 3/4, B/L CAPILLARY FILL TIME: immediate, all digi ts, B/L TEMPERTURE GRADIENT (C): normal, warm to cool, proximal to distal, B/L, B/L TROPHIC CONDITION-TEXTURE/ELASTICITY/TURGOR/HAIR GROWTH (B): normal, B/L Nails NAILS are: 1-5 B/L, nails a re elongated, overgrown, dystrophic CQM Exceptions: Hemoglobin A1c not performed Reason:: No r brittany specified
--- OUTSIDE RECORDS SUMMARY | 2024-09-07 12:40 | XMS_ITS ---
[facility] Organization [facility] Address [address] [facility] [place] [address] Care Team Providers Care Osha Inspector Name Role Phone Carmen Santiago Primary Care Provider Unavailab Risa Castellanos Unavailable [phone] Allergies Allergen (clinical drug ingredient) Drug/Non Drug Allergy documented on EMR Reaction Allergy Type Onset Date Status amoxicillin Amoxicillin Unknown Drug Allergy Act parth Penicillin Unknown Drug Allergy Active REASON FOR VISIT At Risk Footcare, Skin problem(s) Medications Medication SIG (Take, Route, Frequency, Duration) Notes Start Date End Date Status Magnesium Active amLODIPine Besylate 5 MG 1 tablet Orally Once a day for 30 day(s) Active Gabapentin 100 MG 1 capsule Orally Onc e a day for 30 day(s) Active Aspirin 81 81 MG 1 tablet Orally Once a day for 30 day(s) Active Farxiga 10 MG 1 tablet Orally Once a day Active Irbesartan 300 MG 1 tablet Orally Once a day for 30 day(s) Active Extra Depth Orthopedic Shoes (1 Pair) with Customized Heat Molded Multidensity Innersoles (3 Pair) as directed Dx: NIDDM/Polyneuropathy (E11.42), Hammertoe Foot Deformity (M20.41,M20.42), Preulcerative Skin Lesion(s) (L85.1 05/28/2023 Active Extra Depth Orthopedic Shoes (1 Pair) with Customized Heat Molded Multidensity Innersoles (3 Pair) as directed Dx: NIDDM/Polyneuropathy (E11.42), Hammertoe Foot Deformity (M20.41,M20.42), Preulcerative Skin Lesion(s) (L85.1 05/27/2020 Not-Taking metFORMIN HCl ER 500 MG 1 tablet with ev ening meal Orally Once a day for 30 day(s) Active Vitamin D3 50 MCG (1999 UT) as directed Orally Once a day Active Rosuvastatin Calcium 10 MG 1 tablet Orally Once a day for 30 day(s) Active Metoprolol Succinate 50 MG 1 capsule Orally Once a day for 30 day(s) Active Oyster Shell Calcium/D 500-200 MG-UNIT 1 tablet Orally Active Isosorbide Mononitrate ER 30 MG 1 tablet in the morning Orally Once a day for 30 day(s) Active Social History Tobacco Use: Social History [...] No Vital Signs Height 4ft 11in in 04/11/2024 Weight 235 lbs 04/11/2024 BMI 47.46 kg/m2 04/11/2024 Blood pressure systolic 160 mm Hg 04/11/20 24 Blood pressure diastolic 78 mm Hg 024 Encounters Encounter Location Date Provider Diagnosis [facility] [address] [address] 04/11/2024 Risa Chen Type 2 diabetes mellitus with diabetic polyneuropathy E11.42 and Xerosis of skin L85.3 Assessments Encounter Date Diagnosis (ICD Code) Assessment Notes Treatment Notes Treatment Clinical Notes Section Notes 04/11/2024 Type 2 diabetes mellitus with diabetic polyneuropathy (ICD-10 - E11.42) 04/11/2024 Xerosis of skin (ICD-10 - L85.3) Plan Of Treatment Next Appt Details Follow Up: 2 Months, Reason: Provider Name:Risa singh, 09/13/2024 10:45:00 AM, [address] [place], [address], Procedure Notes * Category Sub-Category Detail Notes Keratoma Treatment Parring or Cutting o f Benign Hyperkeratotic Lesion(s) (-57) More than 4 Lesions - The Benign hyperkeratotic lesions, as described above were pared, and/or cut utilizing a sterile 15 blade, tissue nippers, and/or dremel - 84763 Nail Reduction Nail Reduction Trimming of dyst rophic nails performed to reduce/remove overall nail length and girth, by manual and electrical means with use of a nail nipper and/or dremel, to more viable healthy nail plate or bed tissue 6-10 (G0127) Progress Notes * Cheri ARELLANOsDOB: [birth year] (68 yo F)Acc No.[id number]:04/11/2024 Progress Note Patient:?Karon Arellano Provider:?Risa Chen DPM :1955???Age:68 Y???Sex:Female D ate:04/11/2024 Address:[address] [place] [address], [facility], [facility] Pcp:Carmen Santiago Subjective: * Chief Complaints: * ???At Risk FootcareSkin prob lillian(s) * HPI: ???At Risk footcare:?Pt States Last PCP Visit:?Date?12/11/2023 ? Pt presents with son who provides translation. ???Skin problems:?Nature:?dryness , scaling.?Location:?B/L .?Duration:?several days.?Course:?worse.? * ROS:?General/Constitutional:?Nausea?denies.?Vomiting?denies.?Hunger Thirst?denies.?Loss appetite?denies.?Chills?denies.?Fatigue?denies.?Fever?denies.?Night Sweats?denies.?Unexplained weight loss?denies.?Unexplained [...] frequency:, 1-2 cups per day. ?Children: yes. ?no Exercise. ?Marital status: . ?Occupation: Retired. * Medications:?TakingMagnesium amLODIPine Besylate 5 MG Tablet 1 tablet Orally Once a dayAspirin 81 81 MG Tablet Delayed Release 1 tablet Orally Once a dayFarxiga 10 MG Tablet 1 tablet Orally Once a dayGabapentin 100 MG Capsule 1 capsule Orally Once a dayIsosorbide Mononitrate ER 30 MG Tablet Extended Release 24 Hour 1 tablet in the morning Orally Once a dayMetoprolol Succinate 50 MG Capsule ER 24 Hour Sprinkle 1 capsule Orally Once a dayOyster Shell Calcium/D 500-200 MG-UNIT Tablet 1 tablet Orally Rosuvastatin Calcium 10 MG Tablet 1 tablet Orally Once a dayIrbesartan 300 MG Tablet 1 tablet Orally Once a daymetFORMIN HCl ER 500 MG Tablet Extended Release 24 Hour 1 tablet with evening meal Orally Once a dayVitamin D3 50 MCG (1999 UT) Capsule as directed Orally Once a dayExtra Depth Orthopedic Shoes (1 Pair) with Customized Heat Molded Multidensity Innersoles (3 Pair) as directed Dx: NIDDM/Polyneuropathy (E11.42), Hammertoe Foot Deformity (M20.41,M20.42), Preulcerative Skin Lesion(s) (L85.1Taking Magnesium Taking amLODIPine Besylate 5 MG Tablet 1 tablet Orally Once a dayTaking Aspirin 81 81 MG Tablet Delayed Release 1 tablet Orally Once a dayTaking Farxiga 10 MG Tablet 1 tablet Orally Once a dayTaking Gabapentin 100 MG Capsule 1 capsule Orally Once a dayTaking Isosorbide Mononitrate ER 30 MG Tablet Extended Release 24 Hour 1 tablet in the morning Orally Once a dayTaking Metoprolol Succinate 50 MG Capsule ER 24 Hour Sprinkle 1 capsule Orally Once a dayTaking Oyster Shell Calcium/D 500-200 MG-UNIT Tablet 1 tablet Orally Taking Rosuvastatin Calcium 10 MG Tablet 1 tablet Orally Once a dayTaking Irbesartan 300 MG Tablet 1 tablet Orally Once a dayTaking metFORMIN HCl ER 500 MG Tablet Extended Release 24 Hour 1 tablet with evening meal Orally Once a dayTaking Vitamin D3 50 MCG (1999 UT) Capsule as directed Orally Once a dayTaking Extra Depth Orthopedic Shoes (1 Pair) with Customized Heat Molded Multidensity Innersoles (3 Pair) as directed Dx: NIDDM/Polyneuropathy (E11.42), Hammertoe Foot Deformity (M20.41,M20.42), Preulcerative Skin Lesion(s) (L85.1Not-Taking/PRNExtra Depth Orthopedic Shoes (1 Pair) with Customized Heat Molded Multidensity Innersoles (3 Pair) as directed Dx: NIDDM/Polyneuropathy (E11.42), Hammertoe Foot Deformity (M20.41,M20.42), Preulcerative Skin Lesion(s) (L85.1Medication List reviewed and reconciled with the patientNot-Taking/PRN Extra Depth Orthopedic Shoes (1 Pair) with Customized Heat Molded Multidensity Innersoles (3 Pair) as directed Dx: NIDDM/Polyneuropathy (E11.42), Hammertoe Foot Deformity (M20.41,M20.42), Preulcerative Skin Lesion(s) (L85.1Medication List reviewed and reconciled with the patient * Allergies:?Leonid adrian[Allergies Verified] Objective: * Vitals:?Ht: 4ft 11in, Wt:235 , BMI:47.46, Shoe size: 8, BP:160/78 mm Hg, BS: 130, Ht-cm: 149.86 cm, Wt-k.59 kg. * Examination: ???Ophthalmology Referral: ?DIABETES EYE EXAM?Diabetic Retinopathy Screening:?Yes ?Findings of Diabetic Eye Exam:?retinopathy?Neurological: ?SENSORY:? Neurological exam demonstrates, reduced light touch [...] 1 5 B/L Heel(s) B/L , Skin shows sign(s) of, dryness, scaling, in a stocking fashion, no fissure(s) present, B/L.?Vascular: ?DP PULSES(B):?3/4, B/L.?PT PULSES(B):?3/4, B/L.?CAPILLARY FILL TIME:?immediate, all digits, B/L.?TROPHIC CONDITION-TEXTURE/ELASTICITY/TURGOR/HAIR GROWTH(B):?normal, B/L.?TEMPERTURE GRADIENT(C):?normal, warm to cool, proximal to distal, B/L, B/L.? Assessment: * Assessment: 1.?Type 2 diabetes mellitus with diabetic polyneuropathy - E11.42 (Primary)?2.?Xerosis of skin - L85.3, Acute problem, Uncomplicated (3),Rx Management (4)? Plan: * Treatment: * Procedures:?Keratoma Treatment:?Parring or Cutting of Benign Hyperkeratotic Lesion(s)?(-57) More than 4 Lesions - The Benign hyperkeratotic lesions, as described above were pared, and/or cut utilizing a sterile 15 blade, tissue nippers, and/or dremel - [id number].?Nail Reduction:?Nail Reduction?Trimming of dystrophic nails performed to reduce/remove overall nail length and girth, by manual and electrical means with use of a nail nipper and/or dremel, to more viable healthy nail plate or bed tissue 6-10 (G0127).? * Procedure Codes:?G0127 ASHLEIGH ING DYSTROPHIC NAILS ANY #, Modifiers: XS [id number] TRIM SKIN LESIONS, OVER 4, Modifiers: XS [...] Sign off status: Completed true * Provider:?Risa Chen DPM Date:?07/2023 Generated for Cheryl bundy/Rashard/Pedro on:?09/07/2024 12:40 PM EST History and Physical Notes * HPI (History of Present Illness) Category Sub-Category Detail Notes Category Not es Skin problems Nature: dryness , scaling Location: B/L Duration: several days Course: worse At Risk footcare Pt States Last PCP Visit: Date: 12/11/2023 Pt presents with son who provides translation Examination Category Sub-Category Detail [...] 1 5 B/L Heel(s) B/L , Skin shows sign(s) of, dryness, scaling, in a stocking fashion, no fissure(s) present, B/L Ophthalmology Referral DIABETES EYE EXAM Diabeti c Retinopathy Screening:: Yes Findings of Diabetic Eye Exam:: retinopa thy Vascular DP PULSES (B): 3/4, B/L PT PULSES (B): 3/4, B/L CAPILLARY FILL TIME: immediate, all digi ts, B/L TEMPERTURE GRADIENT (C): normal, warm to cool, proximal to distal, B/L, B/L TROPHIC CONDITION-TEXTURE/ELASTICITY/TURGOR/HAIR GROWTH (B): normal, B/L Nails NAILS are: 1-5 B/L, nails are elongated , overgrown, dystrophic
--- OUTSIDE RECORDS SUMMARY | 2024-09-07 12:40 | XMS_ITS | Encounter Summary ---
Author Organization [employer] Address [address] [facility] [address] [place] [address] Care Team Providers Care Proof Clerk Name Role Phone Amina Nieves MD Primary Care Provider [phone] Encounter Details Date Type Department Care Team (Late st Contact Info) Description 01/26/2024 Orders Only [facility] MEDICINE [address] [place], [place] [phone] Amina Nieves MD [address] [place], [place] [phone] Social History Tobacco Use Types Packs/Day Years Used Date Smoking Tobacco: Never Passive Smoke Exposure: Never Smokeless Tobacco: Never Alcohol Use Standard Drinks/Week Comments Never 0 (1 standard drink = 0.6 oz pur e alcohol) Depression Answer Date Recorded Patient Health Questionnaire-9 Score 0 09/22/2023 Patient Health Questionnaire-9 Score 0 09/22/2023 Last PHQ-9: Questionnaire Data Not on file 0 09/22/2023 Housing Stability Answer Date Recorded What is [...] Date Recorded Patient Health Questionnaire-2 Score 0 09/22/2023 Comments Unknown Sex and Gender Information Value Date Recorded Sex Assigned at Female 05/11/2022 10:15 AM EDT Legal Sex Female 10:15 AM EDT Gender Identity Female 05/11/2022 10:15 AM EDT Sexual Orientation Straight 05/11/2022 10 :15 AM EDT documented as of this encounter Plan of Treatment Not on file documented as of this encounter Visit Diagnoses Not on filedocumented in this encounter Additional Health Concerns Assessment Noted Time PHQ-9 Depression Total Score: 0 09/22/19 24 2:51 PM EDT documented as of this encounter Care Teams Proof Clerk Relationship Specialty Start Date End Date Amina Nieves MD [address] [place] [id number] PCP - General Family Medicine 04/07/21 documented as of this encounter
--- OUTSIDE RECORDS SUMMARY | 2024-09-07 12:40 | XMS_ITS | Encounter Summary ---
Author Organization [employer] Address [address] [facility] [address] [place] [address] Care Team Providers Care Croze Cutter Name Role Phone Amina Nieves MD Primary Care Provider [phone] Reason for Visit * Reason Comments Med Refill Encounter Details Date Type Department Care Team ([facility] st Contact Info) Description 06/01/2024 Refill [facility] MEDICINE [address] [place], [place] [phone] Jhoana Worrell DO [address] [place], [place] [phone] Social History Tobacco Use Types Packs/Day Years [...] documented as of this encounter Care Teams Croze Cutter Relationship Specialty Start Date End Date Amina Nieves MD [address] [place] [id number] PCP - General Family Medicine 04/07/21 documented as of this encounter
--- OUTSIDE RECORDS SUMMARY | 2024-09-07 12:40 | XMS_ITS | Encounter Summary ---
Author Organization [employer] Address [address] [place] [address] [address] [place] [address] Care Team Providers Care Freight Rate Clerk Name Role Phone Amina Nieves MD Primary Care Provider [phone] Encounter Details Date Type Department Care Team (Late st Contact Info) Description 10/27/2022 Orders Only [facility] MEDICINE [address] [place], [place] [phone] Amina Nieves MD [address] [place], [place] [phone] Vaginal bleeding (Primary Dx); Endometrial thickening on ultrasound Social History Tobacco Use Types Packs/Day Years Used Date Smoking Tobacco: Never Passive Smoke Exposure: Never Smokeless Tobacco: Never Alcohol Use Standard Drinks/Week Comments Never 0 (1 standard drink = 0.6 oz pur e alcohol) Depression Answer Date Recorded Patient Health Questionnaire-9 Score 0 09/21/2022 Depression Answer Date Recorded Patient Health Questionnaire-2 Score 0 09/21/2022 Comments Unknown Sex and Gender Information Value Date Recorded Sex Assigned at Female 05/11/2022 10:15 AM EDT Legal Sex Female 10:15 AM EDT Gender Identity Female 05/11/2022 10:15 AM EDT Sexual Orientation Straight 05/11/2022 10 :15 AM EDT COVID-19 Exposure Response Date Recorded In the last 10 days, have yo u been in contact with someone who was confirmed or suspected to have Coronavirus/COVID-19? No / Unsure 10/07/2022 9:23 AM EDT documented as of this encounter Plan of Treatment Not on file documented as of this encounter Visit Diagnoses Diagnosis Vaginal bleeding- Primary Other specified noninflammatory disorder of vagina Endometrial thickening on ultrasound documented in this encounter Additional Health Concerns Assessment Noted Time PHQ-9 Depression Total Score: 0 09/22/19 23 10:45 AM EDT documented as of this encounter Care Teams Freight Rate Clerk Relationship Specialty Start Date End Date Amina Nieves MD [address] [place] [address] PCP - General Family Medicine 04/07/21 documented as of this encounter
--- OUTSIDE RECORDS SUMMARY | 2024-09-07 12:40 | XMS_ITS | Clinical Summary ---
Demographics Address [address] [place] [address] [address] [place] [address] Work Phone Mobile Phone Home Phone Preferred Language es Marital Status Single Gnosticism Affiliation Unknown Race Other Race Ethnic Group or Author Organization [employer] Address [address] [place] [address] [address] [place] [address] Care Team Providers Care Director Of Investigations Name Role Phone Amina Nieves MD Primary Care Provider [phone] Allergies Active Allergy Reactions Criticality Noted Date Comments Amoxicillin Unknown 05/27/2022 Penicillin G 05/27/2022 Other reaction(s): Unknown Other reaction(s): Unknown Penicillin V 08/19/2010 Other reaction(s): unspecified Penicillins 03/12/2023 Other reaction(s): hives Medications Skin Protectants, Misc. (eucerin) cream Apply 1 application topically in the morning, at noon, in the evening, and at bedtime. Active simethicone (Mylicon) 125 MG chewable tablet Chew 125 mg in the morning, at noon, in the evening, and at bedtime. Active polyethylene glycol, PEG, 3350 (Miralax) 17 g packet Take 17 g by mouth if needed each day. Active omeprazole (PriLOSEC) [address] capsule Take 1 capsule by mouth at bed time. Active isosorbide mononitrate ER (Imdur) 30 MG 24 hr tablet Take 30 mg by mouth in the morning. Active Menthol-Methyl Salicylate (Muscle Rub) 10-15 % creamIndications:N romi pain Apply 1 application topically if needed in the morning and at bedtime (pain). 85 g 3 023 Active Ventolin HFA 108 (90 Base) MCG/ACT inhaler Inhale 2 puffs Every 4-6 hours as needed for wheezing or shortness of breath. 18 g 2 023 Active omeprazole (PriLOSEC) [address] capsule Take 40 mg by mouth in the morning. 023 Active betamethasone dipropionate (Diprolene) 0.05 % ointmentIndication s:Rash APPLY TOPICALLY TO AFFECTED AREA(S) EVERY OTHER DAY NEEDED FOR IRRITATION 15 g 3 023 Active Diclofenac Sodium 1 % gelIndications:Kasia n in both feet APPLY 2 GRAMS TOPICALLY TO FEET UP TO THREE TIMES DAILY 100 g 2 023 Active acetaminophen (Tylenol) 325 MG tablet ANGELA 3 TABLETAS POR LA BOCA CADA 6 HORAS 023 Active Bisacodyl EC 5 MG EC tablet Take 5 mg by mouth in the morning. 023 Active oxyCODONE (Roxicodone) 5 MG immediate release tablet ANGELA 1 TABLETA POR LA BOCA CADA 6 HORAS CUANDO SEA NECESARIO PARA EL DOLOR 023 Active Senna-Time 8.6 MG tablet ANGELA 1 TABLETA POR LA BOCA CADA MÓNICA A LA HORA DE DORMIR 023 Active loratadine (Claritin) 10 MG tablet Take 1 tablet (10 mg) by mouth in the morning. 90 tablet 3 023 Active Kiicgsl-Uuciadm-Dg thyl Elvin (Salonpas) 3.1-6-10 % patch APPLY 1 TO 2 PATCHES TOPICALLY TO SKIN, LEAVE ON FOR 12 HOURS AND OFF FOR 12 HOURS DIRECTED NEEDED FOR PAIN 60 patch 2 023 Active magnesium oxide (Mag-Ox) 400 (240 Mg) MG tabletIndications: Muscle cramp TAKE 1 TABLET BY MOUTH EVERY DAY 90 tablet 3 023 Active Neomycin-Polymyxin -HC 1 % solution Administer 4 drops into affected ear(s) 4 times daily. 10 mL 023 Active albuterol (2.5 MG/3ML) 0.083% nebulizer solution Take 3 mL (2.5 mg) by nebulization if needed in the morning, at noon, and at bedtime for wheezing. 75 mL 11 024 2024 Active montelukast (Singulair) 10 MG tabletIndications: Allergic rhinitis, unspecified seasonality, unspecified trigger Take 1 tablet (10 mg) by mouth in the morning. For allergies 90 tablet 3 024 2024 Active aspirin (Aspirin Low Dose) 81 MG EC tabletIndications: Type 2 diabetes mellitus with diabetic neuropathy, unspecified (CMS/HCC) TAKE 1 TABLET BY MOUTH EVERY MORNING 90 tablet 3 Active D3 Super Strength 50 MCG (1999 UT) capsule TAKE 1 CAPSULE BY MOUTH EVERY MORNING 90 capsule 3 Active furosemide (Lasix) 20 MG tablet Active acetic acid-hydrocortison e (Vosol-HC) otic solution PLACE 5 DROPS INTO THE AFFECTED EAR(S) EVERY DAY Active pyridoxine (Vitamin B-6) 50 MG tablet Take 1 tablet (50 mg) by mouth in the morning. 90 tablet 3 024 2024 Active carvedilol (Coreg) 6.25 MG tablet TAKE 1 TABLET BY MOUTH TWICE DAILY IN THE MORNING AND IN THE EVENING WITH FOOD 180 tablet 3 Active metFORMIN XR (Glucophage-XR) 500 MG 24 hr tablet Take 2 tablets (1,000 mg) by mouth with breakfast and with evening meal. Do not crush, chew, or split. 360 tablet 3 Active gabapentin (Neurontin) 100 MG capsule TAKE 1 CAPSULE BY MOUTH TWICE DAILY AT NOON AND BEDTIME 60 capsule 11 Active irbesartan (Avapro) 300 MG tablet TAKE 1 TABLET BY MOUTH EVERY MORNING 90 tablet 3 Active amLODIPine (Norvasc) 5 MG tablet TAKE 1 TABLET BY MOUTH EVERY MORNING 90 tablet 3 Active rosuvastatin (Crestor) 10 MG tablet TAKE 1 TABLET BY MOUTH EVERY EVENING 90 tablet 3 Active Calcium Carb-Cholecalcifer ol (Oyster Shell Calcium w/D) 500-5 MG-MCG tablet TAKE 1 TABLET BY MOUTH TWICE DAILY IN THE MORNING AND IN THE EVENING 180 tablet 3 Active Diclofenac Sodium 1 % gel Apply 4 g topically if needed in the morning, at noon, in the evening, and at bedtime (pain). 100 g 1 024 Active meclizine (Antivert) 25 MG tabletIndications: Dizziness TAKE 1 TABLET BY MOUTH THREE TIMES DAILY NEEDED FOR DIZZINESS 60 tablet 3 024 Active TRUEplus Lancets 33G misc TEST BLOOD SUGAR TWICE DAILY 100 each 11 024 Active FREESTYLE LITE test strip TEST BLOOD SUGAR TWICE DAILY 100 strip 11 024 Active Ketotifen Fumarate (Eye Itch Relief) 0.035 % solutionIndication s:Allergy, subsequent encounter Administer 1 drop into both eyes 2 times daily. 10 mL 1 024 Active Farxiga 10 MGIndications:Type 2 diabetes mellitus with diabetic neuropathy, without long-term current use of insulin ([facility]) TAKE 1 TABLET BY MOUTH EVERY MORNING 90 tablet 3 024 Active fluticasone (Flonase) 50 MCG/ACT nasal spray INHALE 1 SPRAY IN EACH NOSTRIL TWICE DAILY 16 g 3 024 Active fluticasone furoate (Arnuity Ellipta) 200 MCG/ACT inhaler INHALE 1 PUFF BY MOUTH ONCE DAILY. RINSE MOUTH AFTER USING. DO NOT SWALLOW 30 each 3 024 Active nystatin (Mycostatin) 337717 UNIT/GM powderIndications: Skin candidiasis APPLY TO THE AFFECTED AREA(S) TWICE DAILY UNDER DEL ABDOMEN AND BETWEEN DE LOS THIGHS 120 g 2 024 Active cyclobenzaprine (Flexeril) 5 MG tabletIndications: Leg cramps TAKE 1 TABLET BY MOUTH AT BEDTIME NEEDED FOR CRAMPS 30 tablet 2 025 Active lidocaine (Lidoderm) 5 % patchIndications:N romi pain, musculoskeletal Apply 1 patch topically Once per day. Remove & discard patch within 12 hours or as directed by MD. 60 patch 2 025 Active lidocaine (Lidoderm) 5 % patch APPLY 1 TO 2 PATCHES TOPICALLY TO SKIN, LEAVE ON FOR 12 HOURS AND OFF FOR 12 HOURS DIRECTED 60 patch 2 024 2024 Discontinued(R eorder (will not trigger notification to Pharmacy)) ibuprofen 600 MG tabletIndications: Acute nonintractable headache, unspecified headache type,Neck pain, musculoskeletal Take 1 tablet (600 mg) by mouth every 6 (six) hours if needed for mild pain for up to 14 days. 56 tablet 025 2024 Active Problems Problem Noted Date Diagnosed Date Endometrial cancer 12/20/2023 Assessment & Plan (12/23/2023 2:30 PM EDT): [facility] supervisor special effects/onc removed uterus 01/2023 F/u q 6 months with them Localized osteoarthritis of right knee Assessment & Plan (12/23/2023 2:31 PM EDT): S/p TKA 10/2023 with some PT afterwards, still with pain, seeing pain mgmt for consideration of SPRINT device Assessment & Plan (06/20/2023 5:00 PM EST): Normal kidney function, start Mobic 7.5mg BID Discussion timing of knee replacement surgery with ortho Allergies 03/15/2023 Assessment & Plan (03/15/2023 12:59 PM EDT): Daily loratadine Dust house, avoid noted triggers Singulair trial x 2 weeks Tea with honey for cough Ketotifen eye drops Breast pain 03/12/2023 Eczema 03/12/2023 Hematuria 03/12/2023 Pilar cysts 03/12/2023 Severe obesity 03/12/2023 Weakness 03/12/2023 Endometrial adenocarcinoma 12/30/2022 Overview (12/30/2022): Adenocarcinoma, Endometrioid, FIGO grade 2 diagnoed on endometrial biopsy with Dr. Ying 01/2023 - referred to Education Nurse Onc by Dr. Ying with Dr. Rodriguez at [facility] supervisor special effects Oncology on 01/14/2023 at 10:00. -CT scan of abdomen and pelvis and CA [address] Ying 01/2023 Vaginal bleeding 09/21/2022 Assessment & Plan (12/21/2022 7:54 AM EDT): Has EMB scheduled next week Assessment & Plan (09/21/2022 1:51 PM EDT): Unclear source of bleeding, she notes it intermittently when she is wiping, small amount of blood Will image with pelvic US Primary localized osteoarthrosis of ankle and fo ot 06/22/2022 Polyneuropathy due to type 2 diabetes mellitus 1 08/23/2021 Assessment & Plan (12/23/2023 2:33 PM EDT): Continue Gabapentin 100mg BID Continue A1C 7.0 goal Has seen [facility] Assessment & Plan (06/22/2022 10:35 AM EST): Continue Gabapentin 100mg BID Continue A1C 7.0 goal Has seen [facility] Acquired hammer toe of left foot 06/22/2022 Obstructive sleep apnea 06/22/2022 Assessment & Plan (12/23/2023 2:34 PM EDT): Continue to try to get used to CPAP Has trialed different masks O2 sat 97% today Assessment & Plan (12/21/2022 7:55 AM EDT): Continue to try to get used to CPAP Has appointment this week to discuss switching mask types to full face mask O2 sat 94% Assessment & Plan (09/21/2022 1:45 PM EDT): Continue to try to get used to CPAP O2 sat 94% Assessment & Plan (06/22/2022 10:36 AM EST): Sleep medicine consult CPAP order is in Kidney stones 06/13/2022 Assessment & Plan (09/21/2022 1:46 PM EDT): Requiring lithotripsy in the past Currently experiencing intermittent R flank pain, no CVA tenderness Urology will follow her again in 2 months with ultrasound Feels symptomatic May require lithotripsy again Assessment & Plan (06/22/2022 10:37 AM EST): Requiring lithotripsy in the past Currently experiencing intermittent R flank pain, no CVA tenderness Will check urine for blood, start Flomax if positive Ascending aorta dilatation 07/02/2021 Assessment & Plan (12/23/2023 2:31 PM EDT): followup with cardiology Assessment & Plan (09/21/2022 1:45 PM EDT): followup with cardiology Coronary arteriosclerosis 07/02/2021 Assessment & Plan (12/23/2023 2:31 PM EDT): Continue Bblocker and ASA Cardiology followup Assessment & Plan (09/21/2022 1:45 PM EDT): Continue Bblocker and ASA Cardiology followup Assessment & Plan (06/22/2022 10:36 AM EST): Continue Bblocker Cardiology followup Continue ASA Mitral valve stenosis 07/02/2021 HTN (hypertension) 05/06/2015 Assessment & Plan (05/25/2024 9:35 AM EST): At goal < 140/90 at home Continue current meds Continue walks around the block daily Stress reduction Assessment & Plan (12/23/2023 2:31 PM EDT): At goal < 140/90 at home Continue current meds Her children take Phentermine for weight loss and she wants to as well, explained why she cannot due to cardiac conditions Assessment & Plan (12/21/2022 7:55 AM EDT): At goal < 140/90 Continue current meds Her children take Phentermine for weight loss and she wants to as well, explained why she cannot due to cardiac conditions Assessment & Plan (09/21/2022 1:45 PM EDT): At goal < 140/90 Continue current meds Her children take Phentermine for weight loss and she wants to as well, explained why she cannot due to cardiac conditions Assessment & Plan (06/22/2022 10:37 AM EST): At goal < 140/90 Continue current meds Her children take Phentermine for weight loss and she wants to as well, explained why she cannot due to cardiac conditions GERD (gastroesophageal reflux disease) 5 Hypercholesterolemia 05/06/2015 IBS (irritable bowel syndrome) 05/06/2015 Mild intermittent asthma 05/06/2015 Diabetes 05/06/2015 Assessment & Plan (05/25/2024 9:36 AM EST): A1C 9.7, additional DM2 labs due today Recommend Trulicity for weight loss and better A1C control Recommend insulin for better A1C control She declines due to fear of needles She would like to work on her diet, and anxiety related eating Continue annual dental follow-up BRIGHT 09/2022 no DM retinopathy Foot exam R foot with loss of protective sensation in two places, sees podiatry Assessment & Plan (12/23/2023 2:33 PM EDT): A1C 9.4 Recommend Trulicity for weight loss and better A1C control She declines due to fear of needles She would like to work on her diet, and anxiety related eating Continue annual dental follow-up BRIGHT 09/2022 no DM retinopathy Foot exam R foot with loss of protective sensation in two places, podiatry referral placed Assessment & Plan (06/20/2023 5:00 PM EST): A1C 8.7 Recommend Trulicity for weight loss and better A1C control She declines due to fear of needles She would like to work on her diet, and anxiety related eating Continue annual dental follow-up BRIGHT 09/2022 no DM retinopathy Foot exam R foot with loss of protective sensation in two places Assessment & Plan (12/21/2022 7:57 AM EDT): A1C 8.5 Recommend Trulicity for weight loss and better A1C control She declines due to fear of needles She would like to work on her diet, and anxiety related eating Continue annual dental follow-up BRIGHT 09/2022 no DM retinopathy Foot exam R foot with loss of protective sensation in two places Assessment & Plan (09/21/2022 1:47 PM EDT): A1C 8.5 Recommend Trulicity for weight loss and better A1C control She declines due to fear of needles Continue annual dental follow-up Assessment & Plan (06/22/2022 10:38 AM EST): Recommend Trulicity for weight loss and better A1C control She declines due to fear of needles Vitamin D deficiency 05/06/2015 Resolved Problems Problem Noted Date Diagnosed Date Resolved Date Cough in adult 09/22/2023 05/25/2024 Assessment & Plan (12/21/2023 11:13 PM EDT): -persistent cough following URI may be acute asthma exacerbation -will trial a short course of prednisone 20 mg x5 days -advised use on albuterol nebulizer solution q4 h as needed -rtc if no improvement in 1 week -ED precautions reviewed Neuropathy 06/22/2022 05/25/2024 Encounters Date Type Department Care Team Description 08/16/2024 8:40 AM EST Office Visit [facility] [address] [place] [address] Pat Carson NP Acute nonintractable headache, unspecified headache type (Primary Dx); Neck pain, musculoskeletal 07/20/2024 Refill [facility] [address] [place] [address] Name, MD Tom Leg cramps 07/07/2024 Orders Only GENERIC EXTERNAL DATA DEPARTMENT Provider, Generic External Data from Last 3 Months Immunizations Name Administration Dates Next Due Hep A, Adult 05/25/2019,12/05/2015 Hep B, Unspecified 02/27/2008,07/13/2007, 007 Hep B, adult 12/05/2015, 5,11/30/2014,10/31,02/27/2008,07/13/2007,06/10/2007 Influenza High-dose Quadriva lent Preservative Free 05/05/2023,05/08/2020 Influenza injectable quadriv alent IIV4 with preservative 04/08/2016,05/06/2015 Influenza injectable quadriv alent preservative free 06/22/2022,06/09/2021,05/25/2019,04/21 Influenza, High Dose Seasona l, Preservative Free 05/25/2024,05/12/2018 Influenza, IIV3, injectable 04/03/2014, 1 Influenza, Split (incl. marcial fied surface antigen) 03/23/2013,06/17/2012 Influenza, seasonal, injecta ble, preservative free 06/09/2021,03/29/2020 Moderna Covid-19 Vaccine 12+ 02/25/2022,12/31/19 21,12/02/2020 Pneumococcal Conjugate PCV 13 05/12/2018 Pneumococcal Polysaccharide PPSV23 05/08,08/04/2017,08/29/2014,05/01 TD (adult), 2 Lf tetanus tox oid, preservative free, adsorbed 03/04/2007 Tdap 05/25/2024,03/23/2013 Zoster, Recombinant 08/21/2019,05/25/2019 Zoster, live 08/29/2014 Social History Tobacco Use Types Packs/Day Years Used Date Smoking Tobacco: Never Passive Smoke Exposure: Never Smokeless Tobacco: Never Tobacco Cessation:Counseling Given: Not Answered Alcohol Use Standard Drinks/Week Comments Never 0 [...] Orientation Straight 05/11/2022 10 :15 AM EDT Last Filed Vital Signs Vital Sign Reading Time Taken Comments Blood Pressure 120/68 08/16/2024 9:19 AM EST Pulse 69 08/16/2024 8:48 AM EST Temperature 36.7 ??C (98.1 ??F) 08/16/2024 8:48 AM ES T Respiratory Rate 18 08/16/2024 8:48 AM EST Oxygen Saturation 98% 08/16/2024 8:48 AM EST Inhaled Oxygen Concentration - - Weight 106 kg (234 lb) 08/16/2024 8:48 AM EST Height 149.9 cm (4' 11 ) 05/25/2024 8:53 AM EST Body Mass Index 47.26 05/25/2024 8:53 AM EST Plan of Treatment Health Maintenance Due Date Last Done Comments CT Colonography 1953 FIT DNA/Cologuard 1955 FIT 1955 FOBT 1955 Sigmoidoscopy 1955 Eye Exam 1963 Alcohol/Substance Use Screening 1965 RSV Patients and Patients Aged 60 years or older (1 - Risk 60-74 years 1-dose series) 2013 COVID-19 Vaccine ( season) 2024 02/25/2022, 12/30/2020, 12/02/2020 Diabetes: Hemoglobin A1C 08/25/2024 024, 11/02/2023, 06/18/2023, Additional history exists Depression Screening 09/21/2024 09/22/2023, 09/22/19 24 SDOH Screening 09/21/2024 09/22/2023 Colonoscopy 10/17/2024 10/18/2019 Colorectal Cancer Screening 10/17/2024 Mammogram 12/21/2024 12/22/2023, 10/112, 05/21/2021, Additional history exists Diabetes: Foot Exam 05/25/2025 05/25/2024, 12/18/2022, 12/18/2022 Diabetes: Urine Protein Screening 05/25/2025 05/25/2024, 06/23/2022, 03/19/2022, Additional history exists Lipid Panel 05/25/2025 05/25/2024, 1202/2023, 06/23/2022, Additional history exists Tobacco Screening 08/16/2025 08/16/2024 DTaP/Tdap/Td Vaccines (3 - Td or Tdap) 05/25/2034 05/25/2024, 03/23/2013, 03/04/2007 Hepatitis B Vaccines Completed 12/05/2015, 05/06/2015, 11/30/2014, Additional history exists Hepatitis A Vaccines Aged Out 05/25/2019, 12/05/19 16 No longer eligible based on patient's age to complete this topic Zoster Vaccines Completed 08/21/2019, 05/12, 08/29/2014 Pneumococcal Vaccine: 50+ Years Completed 05/08/2020, 05/12/2018, 08/04/2017, Additional history exists Hepatitis C Screening Completed 05/25/2024 Influenza Vaccine Completed 05/25/2024, , 06/22/2022, Additional history exists HIB Vaccines Aged Out No longer eligi ble based on patient's age to complete this topic HPV Vaccines Aged Out No longer eligi ble based on patient's age to complete this topic IPV Vaccines Aged Out No longer eligi ble based on patient's age to complete this topic Meningococcal Vaccine Aged Out No quin abida eligible based on patient's age to complete this topic RSV under 20 months Aged Out No longe r eligible based on patient's age to complete this topic Rotavirus Vaccines Aged Out No longer eligible based on patient's age to complete this topic Procedures Procedure Name Priority Date/Time Associated Diagnosis Comments US ABDOMEN BECK W ELASTOGRAPHY Routine 07/25/2024 7:25 AM EST VITAMIN D 25-OH (D2 AND D3) Routine 07/07/2024 8:10 AM EST VITAMIN B12/FOLATE, SERUM PANEL Routine 07/07/2024 8:10 AM EST LIPASE Routine 07/07/2024 8:10 AM EST HEPATITIS C AB W/REFL TO HCV RNA, QN, PCR Routine 05/25/2024 9:46 AM EST Type 2 diabetes mellitus with diabetic neuropathy, without long-term current use of insulin (CMS/HCC) ALBUMIN, RANDOM URINE W/CREATININE Routine 05/25/2024 9:46 AM EST Type 2 diabetes mellitus with diabetic neuropathy, without long-term current use of insulin (CMS/HCC) LIPID PANEL, STANDARD Routine 05/25/2024 9:46 AM EST Type 2 diabetes mellitus with diabetic neuropathy, without long-term current use of insulin (CMS/HCC) POCT GLYCATED HEMOGLOBIN, TOTAL Routine 05/25/2024 8:57 AM EST Type 2 diabetes mellitus with diabetic neuropathy, without long-term current use of insulin (CMS/HCC) BI MAMMOGRAM SCREENING TOMOSYNTHESIS BILATERAL Routine 12/22/2023 10:05 AM EDT Screening mammogram for breast cancer HM COLONOSCOPY Routine 10/18/2019 from Last 3 Months or Most Recently Relevant to Health Maintenance Results * US ABDOMEN BECK W ELASTOGRAPHY (07/25/2024 7:25 AM EST) Anatomical Region Laterality Modality Abdomen Ultrasound 07/25/2024 7:25 AM EST Narrative 07/25/2024 3:23 PM EST ? [facility] ?[address] ?[place] [address] ? Ultrasound Report ? Signed ? Patient: Adan River,Karon ?MR#: ?? [id number] ? : 1955 ?Acct:[id number] ? Age/Sex: 69 / F ?ADM Date: 01/14/25 ? Loc: HO.US ? Attending Dr: Luisana LOPES ? Ordering Physician: Luisana Lou ?? Date of Service: 07/25/24 ?? Procedure(s): US abdomen beck w elastography ?? Accession Number(s): [id number] ? cc: Amina Nieves; Luisana Lou ? EXAMINATION: ??US ABDOMEN LIMITED WITH LIVER ELASTOGRAPHY ? HISTORY: K76.0 - Fatty (change of) liver, not elsewhere classified ? TECHNIQUE: Real-time grayscale ultrasound imaging of the abdomen was ?? performed and images were reviewed. ? COMPARISON: Comparison is made with the prior examination dated ?? 02/17/2023. ? FINDINGS: ?? Liver: ??The liver is normal in size, but demonstrates increased ?? echotexture, consistent with steatosis. ??No focal mass or intrahepatic ?? biliary ductal dilatation is identified. ??There is normal hepatopedal ?? flow in the portal vein. ? Ultrasound elastography of the liver was performed with 10 separate ?? measurements of the liver parenchyma with the patient in the supine ?? position. ??Measurements were obtained approximately 2 cm below ?? Elenita's capsule and perpendicular to the capsule. ??Images are of ?? satisfactory quality. ? The median shear wave velocity is 1.23 m/s. ?? The interquartile range/median (IQR/median) is 0.35. ? Gallbladder and biliary tree: There are shadowing calculi in the ?? gallbladder. There is no wall thickening or pericholecystic fluid. ? There is no sonographic Mccallum sign. ??The common bile duct is normal in ?? caliber measuring 4 mm. ? Right kidney: ??The right kidney measures 10.1 cm in length. ??The right ?? kidney is unremarkable, without evidence of masses, hydronephrosis, or ?? calculi. ? Pancreas: The pancreatic head, neck, and body are unremarkable. The ?? pancreatic tail is obscured by bowel gas. ? Abdominal aorta and inferior vena cava: The visualized portions of the ?? abdominal aorta and inferior vena cava are normal in caliber. ? There is no free fluid in the abdomen. ? US/US abdomen beck w elastography ?? IMPRESSION: ? Hepatic steatosis. Cholelithiasis without evidence of acute ?? cholecystitis. ? The median shear wave velocity is 1.23 m/s, corresponding to a median ?? liver stiffness of 4.61 kPa. ??The IQR/median value is 0.35. ??This is ?? indicative of a poor quality data set, and the estimated liver ?? stiffness may be unreliable. ?? Findings are indicative of a normal elastography value with a low ?? likelihood of severe fibrosis or cirrhosis. ? REFERENCE: ?? Society of Radiologists in Ultrasound Liver Stiffness Thresholds (2019): ? LIVER STIFFNESS THRESHOLDS: ?? *Shear wave velocity less than 1.3 m/s (Liver Stiffness equal or less ?? than 5 kPa): ??High probability of being normal. ?? *Shear wave velocity less than 1.7 m/s (Liver Stiffness less than 9 ?? kPa): ??In the absence of other known clinical signs, rules out ?? compensated advanced chronic liver disease. ?? *Shear wave velocity between 1.7-2.1 m/s (Liver Stiffness 9-13 kPa): ? Suggestive of compensated advanced chronic liver disease but need ?? further test for confirmation. ?? *Shear wave velocity between 2.1-2.4 m/s (Liver Stiffness 13-17 kPa): ? Rules in compensated advanced chronic liver disease. ?? *Shear wave velocity ??greater than 2.4 m/s (Liver Stiffness over 17 ?? kPa): ??Suggestive of clinically significant portal hypertension. ? QUALITY OF DATA SET: ?? *IQR/Median value equal or less than 0.15 implies a quality data set. ?? *IQR/Median value over 0.15 implies a poor quality data set. ? SIGNIFICANT CHANGE FROM PRIOR EXAM: ?? Significant change if liver stiffness measurement is 10% or greater ?? from prior exam. ? OTHER CONSIDERATIONS: ?? The stage of liver fibrosis may be overestimated in the setting of ?? acute hepatitis, liver inflammation, elevated liver function tests, ?? hepatic vascular congestion, obstructive cholestasis, non-fasting ?? state, and infiltrative diseases such as amyloidosis and lymphoma. ??In ?? some patients with NAFLD, the liver stiffness thresholds for ?? compensated advanced chronic liver disease may be lower. ??In causes ?? other than viral hepatitis and NAFLD, liver stiffness thresholds are ?? not well established. ? Electronically signed by: ??Celso Dumas MD ??07/25/2024 03:20 PM EST ?? RP ? Dictated By: ?Celso Dumas MD ? Signed By: ?<Electronically signed by Celso Dumas MD in OV> ?07/25/24 1520 ? DD/ 0725 ? TD/TT: 07/25/24 0744 ? [employer] Business Analyst: ? Procedure Note Donotuseinterpreter, Image - 07/25/[address] [address] Ultrasound Report Signed Patient: Ron Nur#: [id number] : 1955cct:[id number] Age/Sex: 69 / FADM Date: 07/25/24 Loc: HO.US Attending Dr: Luisana LOPES Ordering Physician: Luisana Lou Date of Service: 07/25/24 Procedure(s): US abdomen beck w elastography Accession Number(s): [id number] cc: Amina Nieves; Liusana Lou EXAMINATION: US ABDOMEN LIMITED WITH LIVER ELASTOGRAPHY HISTORY: K76.0 - Fatty (change of) liver, not elsewhere classified TECHNIQUE: Real-time grayscale ultrasound imaging of the abdomen was performed and images were reviewed. COMPARISON: Comparison is made with the prior examination dated 02/17/2023. FINDINGS: Liver: The liver is normal in size, but demonstrates increased echotexture, consistent with steatosis. No focal mass or intrahepatic biliary ductal dilatation is identified. There is normal hepatopedal flow in the portal vein. Ultrasound elastography of the liver was performed with 10 separate measurements of the liver parenchyma with the patient in the supine position. Measurements were obtained approximately 2 cm below Elenita's capsule and perpendicular to the capsule. Images are of satisfactory quality. The median shear wave velocity is 1.23 m/s. The interquartile range/median (IQR/median) is 0.35. Gallbladder and biliary tree: There are shadowing calculi in the gallbladder. There is no wall thickening or pericholecystic fluid. There is no sonographic Mccallum sign. The common bile duct is normal in caliber measuring 4 mm. Right kidney: The right kidney measures 10.1 cm in length. The right kidney is unremarkable, without evidence of masses, hydronephrosis, or calculi. Pancreas: The pancreatic head, neck, and body are unremarkable. The pancreatic tail is obscured by bowel gas. Abdominal aorta and inferior vena cava: The visualized portions of the abdominal aorta and inferior vena cava are normal in caliber. There is no free fluid in the abdomen. US/US abdomen beck w elastography IMPRESSION: Hepatic steatosis. Cholelithiasis without evidence of acute cholecystitis. The median shear wave velocity is 1.23 m/s, corresponding to a median liver stiffness of 4.61 kPa. The IQR/median value is 0.35. This is indicative of a poor quality data set, and the estimated liver stiffness may be unreliable. Findings are indicative of a normal elastography value with a low likelihood of severe fibrosis or cirrhosis. REFERENCE: Society of Radiologists in Ultrasound Liver Stiffness Thresholds (2020): LIVER STIFFNESS THRESHOLDS: *Shear wave velocity less than 1.3 m/s (Liver Stiffness equal or less than 5 kPa): High probability of being normal. *Shear wave velocity less than 1.7 m/s (Liver Stiffness less than 9 kPa): In the absence of other known clinical signs, rules out compensated advanced chronic liver disease. *Shear wave velocity between 1.7-2.1 m/s (Liver Stiffness 9-13 kPa): Suggestive of compensated advanced chronic liver disease but need further test for confirmation. *Shear wave velocity between 2.1-2.4 m/s (Liver Stiffness 13-17 kPa): Rules in compensated advanced chronic liver disease. *Shear wave velocity greater than 2.4 m/s (Liver Stiffness over 17 kPa): Suggestive of clinically significant portal hypertension. QUALITY OF DATA SET: *IQR/Median value equal or less than 0.15 implies a quality data set. *IQR/Median value over 0.15 implies a poor quality data set. SIGNIFICANT CHANGE FROM PRIOR EXAM: Significant change if liver stiffness measurement is 10% or greater from prior exam. OTHER CONSIDERATIONS: The stage of liver fibrosis may be overestimated in the setting of acute hepatitis, liver inflammation, elevated liver function tests, hepatic vascular congestion, obstructive cholestasis, non-fasting state, and infiltrative diseases such as amyloidosis and lymphoma. In some patients with NAFLD, the liver stiffness thresholds for compensated advanced chronic liver disease may be lower. In causes other than viral hepatitis and NAFLD, liver stiffness thresholds are not well established. Electronically signed by: Celso Dumas MD 07/25/2024 03:20 PM EST RP Dictated By: Celso Dumas MD Signed By: <Electronically signed by Celso Dumas MD in OV> 07/25/24 1520 DD/ 0725 TD/TT: 07/25/24 0744 [employer] Business Analyst: us [facility] External Provider IMG US PROCEDURES Final Result * VITAMIN D 25-OH (D2 AND D3) (07/07/2024 8:10 AM EST) Vitamin D, 25-OH, D2 <4 ng/mL [facility] Comment:This test was develo ped and its analytical performancecharacteristics have been determined by [employer] [place], [place]. It hasnot been cleared or approved by the U.S. Food and DrugAdministration. This assay has been validated pursuantto the CLIA regulations and is used for clinicalpurposes.THIS TEST WAS PERFORMED AT:[employer] [id number] [place] [id number] HULL MD,PHD Vitamin D, 25-OH, D3 51 ng/mL [facility] Comment:This test was develo ped and its analytical performancecharacteristics have been determined by [employer] [place], [place]. It hasnot been cleared or approved by the U.S. Food and DrugAdministration. This assay has been validated pursuantto the CLIA regulations and is used for clinicalpurposes. Vitamin D, 25-OH, Total 51 30 - 100 ng/mL [facility] Comment:Vitamin D, 25-Hydrox y reports concentrations of twocommon forms, 25-OHD2 and 25-OHD3. 25-OHD3 indicatesboth endogenous production and supplementation.25-OHD2 is an indicator of exogenous sources such asdiet or supplementation. Therapy is based onmeasurement of Total 25-OHD, with levels <20 ng/mLindicative of Vitamin D deficiency, while levelsbetween 20 ng/mL and 30 ng/mL suggest insufficiency.Optimal levels are > or = 30 ng/mL.For additional information, please refer [email or web address]Petta/faq/TNX823(This link is being provided for informational/educational purposes only.) 07/07/2024 8:10 AM EST 07/07/2024 8:10 AM EST Generic External Data Provider LAB BLOOD ORDERAB LES Final Result Performing Organization Address [facility] de Phone Number [facility] [address] [place] [phone] * (ABNORMAL) Vitamin B12 (Cobalamin) and Folate Panel, Serum (07/07/2024 8:10 AM EST) Pathologist [facility] Vitamin B12 193(L) 200 - 900 pg/mL [facility] Comment:NORMAL 200-900 PG/ML INDETERMINATE 160-199 PG/ML DEFICIENT < 160 PG/ML Folate 9.2 > or = 4.0 ng/mL [facility] Comment:Reference Values:> o r = 4.0 ng/mL< 4.0 ng/mL suggests folate deficiency Methotrexate, aminopterin and folinic acid(leucovorin) are chemotherapeutic agents whose molecularstructures are similar to folate; therefore, the Architectfolate assay cannot be used for patients using these drugs. 07/07/2024 8:10 AM EST 07/07/2024 8:10 AM EST Generic External Data Provider LAB BLOOD ORDERAB LES Final Result Performing Organization Address [facility] de Phone Number [facility] [address] [place] [phone] * Lipase (07/07/2024 8:10 AM EST) Pathologist [facility] Lipase 40 8 - 78 U/L [facility] 07/07/2024 8:10 AM EST 07/07/2024 8:10 AM EST Generic External Data Provider LAB BLOOD ORDERAB LES Final Result Performing Organization Address [facility] de Phone Number [facility] [address] [place] [phone] * Albumin, Random Urine W/Creatinine (05/25/2024 9:46 AM EST) Creatinine, Urine 85.32 mg/dL [facility] Microalbumin Urine 23.0 mg/L [facility] Microalbum Creatinine Ratio Ur 26.9 <30 ug/mg cr [facility] Comment:Albumin/Creatinine R atio Reference Ranges: Normal: < 30 ug/mg creatinine Microalbuminuria: 30 - 300 ug/mg creatinineClinical Albuminuria: > 300 ug/mg creatinine Urine (Urine, Random) 05/25/2024 9:46 AM EST 05/25/2024 11:28 AM EST Amina Nieves MD LAB URINE ORDERABLES Final Res ult Performing Organization Address [facility] Phone Number [facility] [address] [place] [phone] * Hepatitis C Antibody with Reflex to HCV, RNA, Quantitative, Real-Time PCR (05/25/2024 9:46 AM EST) Hepatitis C Antibody Nonreactive Nonreactive [facility] Comment:Antibodies to HCV no t detected; does not exclude early acuteHCV infection. Blood Venous blood specimen / Unknown 05/25/2024 9:46 AM EST 05/25/2024 10:53 AM EST Amina Nieves MD LAB BLOOD ORDERABLES Final Res ult Performing Organization Address [facility] de Phone Number [facility] [address] [place] [phone] * (ABNORMAL) Lipid Panel, Standard (05/25/2024 9:46 AM EST) Triglycerides 266(H) <150 mg/dL [facility] Comment:Desirable Triglyceri de: less than 150 mg/dLBorderline High Triglyceride 150-199 mg/dLHigh Triglyceride: 200-499 mg/dLVery High Triglyceride: greater than or equal to 5OO mg/dL Cholesterol 210(H) <200 mg/dL [facility] Comment:Desirable Cholestero l: less than 200 mg/dLBorderline High Cholesterol: 200-239 mg/dLHigh Cholesterol: greater than 239 mg/dL LDL Cholesterol Calculated 116(H) <100 mg/dL [facility] Comment:Desirable LDL: less than 100 mg/dLNear Optimal/Above Optimal LDL: 110- 129 mg/dLBorderline High LDL: 130-159 mg/dLHigh LDL: 160-189 mg/dLVery High LDL: greater than or equal to 190 mg/dL HDL Cholesterol 41 >40 mg/dL [facility] Comment:Desirable HDL: great er than 40 mg/dL Note: This HDL assay may give artificially low results in patients with liver disease. Blood Venous blood specimen / Unknown 05/25/2024 9:46 AM EST 05/25/2024 10:53 AM EST Amina Nieves MD LAB BLOOD ORDERABLES Final Res ult [facility] [address] [place] [phone] * (ABNORMAL) POCT A1C (05/25/2024 8:57 AM EST) Hemoglobin A1C 9.7(A) 4.0 - 6.0 % QC Media Lot # [id number] Lot# Expiration Date ,[id number] Blood 05/25/2024 8:57 AM EST Amina Nieves MD POINT OF CARE TEST ENTER/EDIT ORDERABLES Final Result * BI Mammogram Screening Tomosynthesis Bilateral (12/22/2023 10:05 AM EDT) Anatomical Region Laterality Modality Breast Bilateral Mammography 12/22/2023 10:0 5 AM EDT Narrative 01/20/2024 9:58 AM EDT ? [facility] ? [address] ?[place] [address] ? Mammography Report ? Signed ? Patient: Karon Nur ?MR#: ?? [id number] ? : 1955 ?Acct:[id number] ? Age/Sex: 68 / F ?ADM Date: 12/22/23 ? Loc: HO.MAMMO ? Attending Dr: Amina Nieves MD ? Ordering Physician: Amina Nieves ?Results: 1Negative ? Date of Service: 12/22/23 ?Follow Up: 1 Year From Orig ?? inal Mammogram ? Procedure(s): MM tomosynthesis screening BI ?? Accession Number(s): [id number] ? cc: Amina Nieves ? EXAMINATION: ?? MM SCREENING DIGITAL BREAST TOMOSYNTHESIS, BILATERAL ? CLINICAL INFORMATION: ? Screening. Asymptomatic. ? COMPARISON: ?? Mammography: This study is compared with prior exams dating back to ?? 2019. ? TECHNIQUE: ?? Digital breast tomosynthesis is performed in both the craniocaudal and ?? mediolateral oblique views along with computer-aided detection (CAD). ?? Synthesized 2D images are generated from the tomosynthesis. ? FINDINGS: ?? There are scattered areas of fibroglandular density (ACR BI-RADS breast ?? composition Category b). ? There are no significant masses, abnormal calcifications, or other ?? abnormalities. ? MM/MM tomosynthesis screening BI ?? IMPRESSION: ?? No mammographic evidence of malignancy. ? ASSESSMENT: ? BI-RADS BI-RADS 1 - Negative ? RECOMMENDATION: ?? Routine annual mammography screening. ? 1 year F/U ? This examination should not preclude the clinical evaluation of a ?? suspicious palpable abnormality. ? This patient's information was entered into a reminder system with a ?? target due date for their next mammogram. ? Dictated By: ?Julieta Helms MD ? Signed By: ?<Electronically signed by Julieta Helms MD in OV> ? 01/20/24 0954 ? DD/ 1005 ? TD/TT: ? [employer] Business Analyst: ? Procedure Note Gaetano, Image - 01/20/2024 [facility] [address] [place] [address] Mammography Report Signed Patient: Ron Nur#: [id number] : 3Acct:[id number] Age/Sex: 68 / FADM Date: 12/22/23 Loc: MAMMO Attending Dr: Amina Nieves MD Ordering Physician: Nicole Nievesults: 1Negative Date of Service: 12/22/23Follow Up: 1 Year From Orig inal Mammogram Procedure(s): MM tomosynthesis screening BI Accession Number(s): [id number] cc: Amina Nieves EXAMINATION: MM SCREENING DIGITAL BREAST TOMOSYNTHESIS, BILATERAL CLINICAL INFORMATION: Screening. Asymptomatic. COMPARISON: Mammography: This study is compared with prior exams dating back to 2019. TECHNIQUE: Digital breast tomosynthesis is performed in both the craniocaudal and mediolateral oblique views along with computer-aided detection (CAD). Synthesized 2D images are generated from the tomosynthesis. FINDINGS: There are scattered areas of fibroglandular density (ACR BI-RADS breast composition Category b). There are no significant masses, abnormal calcifications, or other abnormalities. MM/MM tomosynthesis screening BI IMPRESSION: No mammographic evidence of malignancy. ASSESSMENT: BI-RADS BI-RADS 1 - Negative RECOMMENDATION: Routine annual mammography screening. 1 year F/U This examination should not preclude the clinical evaluation of a suspicious palpable abnormality. This patient's information was entered into a reminder system with a target due date for their next mammogram. Dictated By: Julieta Helms MD Signed By: <Electronically signed by Julieta Helms MD in OV> 01/20/24 0954 DD/ 1005 TD/TT: [employer] Business Analyst: Amina Nieves MD IMG BI PROCEDURES Final Result * (ABNORMAL) Colonoscopy (10/18/2019) Colonoscopy Abnormal(A ) Normal Historical Provider HEALTH MAINTENANCE Edited Result - Final from Last 3 Months or Most Recently Relevant to Health Maintenance Insurance [facility] * Guarantor: Karon Nur Account Type Relation to Patient Date of Phone Billing Address Personal/Family Self [address] [place] [address] Care Teams Director Of Investigations Relationship Specialty Start Date End Date Amina Nieves MD [address] [place] [address] [place] [id number] PCP - General Family Medicine 04/07/21
--- OUTSIDE RECORDS SUMMARY | 2024-09-07 12:40 | XMS_ITS | Encounter Summary ---
Author Organization [employer] Address [address] [place] [address] [address] [place] [address] Care Team Providers Care Machine Shop Instructor Name Role Phone Amina Nieves MD Primary Care Provider [phone] Reason for Referral * Medications - Closed Specialty Diagnoses / Procedures Referred By Contrahat t Referred To Contact Diagnoses Muscle tension pain Pat Carson NP [address] [place] [address] Phone: tel: fax: Referral ID Status Reason Start Date Expiration Date Visits Re quested Visits Authorized [id number] Closed 1 1 Reason for Visit * Reason Comments Headache Encounter Details Date Type Department Care Team (Latest Contact Info) Description 08/16/2024 8:40 AM EST Office Visit [facility] [address], [place] [phone] Pat Carson NP [address], [place] [phone] Acute nonintractable headache, unspecified headache type (Primary Dx); Neck pain, musculoskeletal Social History Tobacco Use Types Packs/Day Years [...] AM EDT documented as of this encounter Last Filed Vital Signs Vital Sign Reading Time Taken Comments Blood Pressure 120/68 08/16/2024 9:19 AM EST Pulse 69 08/16/2024 8:48 AM EST Temperature 36.7 ??C (98.1 ??F) 08/16/2024 8:48 AM ES T Respiratory Rate 18 08/16/2024 8:48 AM EST Oxygen Saturation 98% 08/16/2024 8:48 AM EST Inhaled Oxygen Concentration - - Weight 106 kg (234 lb) 08/16/2024 8:48 AM EST Height - - Body Mass Index 47.26 05/25/2024 8:53 AM EST documented in this encounter Progress Notes * Pat Carson NP - 08/16/2024 8:40 AM EST Images from the original note were not included. SUBJECTIVE: Karon River is a 69 y.o. female who [facility] for a sick visit. Denies recent illness, injury, or hospitalization. Headache Associated symptoms: no abdominal pain, no back pain, no diarrhea, no fever, no myalgias, no nausea, no neck pain and no weakness Complains of having a lot of headaches that are not normal for her. Onset 07/31/24 with pattern of headaches every 2 days since based on the paper she showed me. Describes it as strong in the frontal region. Rates it /. States BP is not that high with these occurences. Denies vision changes. Has not tried anything for the headaches. Headache last for 3-4 hrs. Drinks 5 bottles of water daily.Also points to pain in her region of her neck Review of Systems Constitutional: Negative. Negative for chills and fever. Respiratory: Negative for chest tightness and shortness of breath. Cardiovascular: Negative for chest pain. Gastrointestinal: Negative for abdominal pain, constipation, diarrhea and nausea. Genitourinary: Negative for dysuria. Musculoskeletal: Negative for arthralgias, back pain, myalgias and neck pain. Skin: Negative. Negative for rash and wound. Neurological: Positive for headaches. Negative for weakness and light-headedness. Psychiatric/Behavioral: Negative for behavioral problems, confusion, decreased concentration and suicidal ideas. 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 Constitutional: General: She is not in acute distress. Appearance: Normal appearance. She is not ill-appearing. HENT: Head: Normocephalic and atraumatic. Right Ear: External ear normal. Left Ear: External ear normal. Nose: Nose normal. Eyes: General: No scleral icterus. Extraocular Movements: Extraocular movements intact. Cardiovascular: Rate and Rhythm: Normal rate and regular rhythm. Pulmonary: Effort: Pulmonary effort is normal. No respiratory distress. Musculoskeletal: General: Tenderness present. Normal range of motion. Arms: Cervical back: Normal range of motion. Pain with movement and muscular tenderness present. Skin: General: Skin is warm and dry. Neurological: General: No focal deficit present. Mental Status: She is alert and oriented to person, place, and time. Gait: Gait normal. Psychiatric: Mood and Affect: Mood normal. Behavior: Behavior normal. Assessment/Plan Diagnoses and all orders for this visit: Acute nonintractable headache, unspecified headache type Comments: -PE reassuring therefore no need for emergency interventions at this time -suspect its relation to muscle tension -trial previsouly rx'ed tylenol and ibuprofen -headache red flags discussed: report to ED immediately if headache characteristics intensify within 5 mins of onset, if associated with intense nausea and vomiting or confusion -follow-up scheduled with PCP Orders: - ibuprofen 600 MG tablet; Take 1 tablet (600 mg) by mouth every 6 (six) hours if needed for mild pain for up to 14 days. Neck pain, musculoskeletal Comments: -musculoskeletal in nature based on mechanism and description -Reviewed RICE (rest, ice, compression, and elevation.) -NSAIDs q 6 h w/ food and cyclobenzaprine as previously rx'ed -apply diclofenac and lidocaine patches -neck exercises taught and print out provided. patient is encouraged to completed at least two times daily -apply heat as preferred 20 min on, 20 mins off. -RTC if symptoms worsen. -Call or to ED if blue discoloration, numbness, severe tingling, significant swelling, severe pain,or coolness of extremity. Orders: - lidocaine (Lidoderm) 5 % patch; Apply 1 patch topically Once per day. Remove & discard patch within 12 hours or as directed by MD. - ibuprofen 600 MG tablet; Take 1 tablet (600 mg) by mouth every 6 (six) hours if needed for mild pain for up to 14 days. English Translation: Provided by DAVID Advertising Operations Manager Phone Service [place] ID # [id number]. Visit completed with ADRIEN Parekh interpreting documented in this encounter Miscellaneous Notes * Patient Education Note - Pat Carson NP - 08/16/2024 2:16 PM EST Images from the original note were not included. Patient Education Table of Contents Ejercicios para el kim (Neck Exercises) To view videos and all your education online visit, [email or web address] or scan this QR code with your smartphone. Access to this content will in one year. Ejercicios para el kim Neck Exercises Pregunte al m?dico qu?? ejercicios son seguros para usted. Rkishan los ejercicios exactamente kiet se lo haya indicado el m?dico y grad?elos kiet se lo hayan indicado. Es normal sentir un leve estiramiento, tironeo, opresi?n o malestar al hacer estos ejercicios. Det?ngase de inmediato si siente un dolor repentino o el dolor empeora. No comience a hacer estos ejercicios hasta que se lo indique el m?dico. Los ejercicios para el kim pueden ser importantes por muchos motivos. Pueden mejorar la fuerza ymantener la flexibilidad del kim, lo que ser?? ?til para la parte superior de la espalda y para prevenir el dolor de kim. Ejercicios de estiramiento Estiramiento del kim con rotaci?n 1. Si?ntese en gurwinder silla o p?rese. Apoye los pies en el piso, con gurwinder separaci?n del ancho de los hombros. Gire lentamente la shiraz (r?ben) hacia la derecha hasta sentir un ligero estiramiento. G?rela completamente hacia la derecha de modo que pueda buddy por encima de torres hombro derecho. No incline ni ladee la shiraz. Mantenga esta posici?n shane 10 a 30?segundos. Gire lentamente la shiraz (r?ben) hacia la izquierda hasta sentir un ligero estiramiento. G?rela completamente hacia la izquierda de modo que pueda buddy por encima de torres hombro karina. No incline ni ladee la shiraz. Mantenga esta posici?n shane 10 a 30?segundos. Repita veces. Realice jigar ejercicio veces al d?a. Retracci?n del kim 1. Si?ntese en gurwinder silla resistente o p?rese. Carmella hacia adelante. No doble el kim. Use los dedos para empujar la barbilla hacia atr?s (retracci?n). No doble el kim al realizar jigar movimiento. Siga mirando hacia adelante. Si hace el ejercicio correctamente, tendr?? ugrwinder leve sensaci?n en la garganta y sentir?? que la nuca se estira. Mantenga la elongaci?n shane 1?o 2?segundos. Repita veces. Realice jigar ejercicio veces al d?a. Ejercicios de fortalecimiento Presi?n con el kim 1. Recu?stese sobre torres espalda en gurwinder cama firme o en el suelo, y coloque gurwinder almohada debajo de lacabeza. Use los m?sculos del kim para presionar la shiraz contra la almohada y enderezar la columna vertebral. Mantenga la posici?n lo mejor que pueda. Mantenga la shiraz hacia arriba (en posici?n neutral) y elment?n hacia abajo. Cuente lentamente hasta 5?mientras mantiene esta posici?n. Repita veces. Realice jigar ejercicio veces al d?a. Isometr?a Estos son ejercicios en los que se fortalecen los m?sculos del kim mientras se mantiene el kim quieto (isometr?a). 1. Si?ntese en gurwinder silla con buen apoyo y coloque gurwinder mano sobre la frente. Mantenga la shiraz y la veronika mirando hacia adelante. No flexione o extienda el kim mientras haceejercicios flor?tricos. Empuje hacia adelante con la shiraz y el kim mientras que con la mano ejerce cierta presi?n hacia el lado contrario. Mantenga esta posici?n shane 10?segundos. Vuelva a realizar la secuencia, esta vez poniendo la mano contra la nuca. Use la shiraz y el cuellopara empujar en la direcci?n contraria a la presi?n que ejerce con la mano. Para terminar, krishan el mismo ejercicio en cada lado de la shiraz, empujando hacia los lados en la direcci?n contraria a la presi?n de la mano. Repita veces. Realice jigar ejercicio veces al d?a. Levantamientos de la shiraz desde la posici?n dec?bito prono 1. Acu?stese boca abajo (posici?n prona) y apoye los codos de modo que el pecho y la parte superiorde la espalda se eleven. Comience con la shiraz mirando hacia abajo, cerca del pecho. Coloque el ment?n cerca del pecho o sobre jigar. Eleve lentamente la shiraz. H?sergio hasta quedar mirando hacia adelante. Luego contin?e elevando y estirando la shiraz hacia atr?s lo m?s que pueda con comodidad. Mantenga la shiraz elevada shane 5?segundos. A continuaci?n, b?jela lentamente hasta la posici?n inicial. Repita veces. Realice jigar ejercicio veces al d?a. Levantamientos de la shiraz desde la posici?n dec?bito supino 1. Acu?stese sobre la espalda (posici?n dec?bito supino), doble las rodillas apuntando hacia el techo y mantenga los pies apoyados en el piso. Levante lentamente la shiraz del suelo, y eleve el ment?n hacia el pecho. Mantenga esta posici?n shane 5?segundos. Repita veces. Realice jigar ejercicio veces al d?a. Retracci?n escapular 1. P?rese con los brazos a los costados. Carmella hacia adelante. Lentamente, lleve los hombros (esc?pulas) hacia atr?s y hacia abajo (retracci?n) hasta sentir que la donavan de los om?platos, en la parte rachael de la espalda, se estira. Mantenga esta posici?n shane 10 a 30?segundos. Rel?maria luisa y luego repita el ejercicio. Repita veces. Realice jigar ejercicio veces al d?a. Comun?quese con un m?dico si: El dolor o las molestias en el kim empeoran cuando hace un ejercicio. El dolor o las molestias en el kim no mejoran en el t?rmino de las 2?horas posteriores a hacer los ejercicios. Si tiene alguno de estos problemas, deje de hacer los ejercicios de inmediato. No vuelva a hacer los ejercicios a menos que el m?dico lo autorice. Solicite ayuda de inmediato si: Siente un dolor s?bito e intenso en el kim. Si esto ocurre, deje de hacer los ejercicios de inmediato. No vuelva a hacer los ejercicios a menosque el m?dico lo autorice. Esta informaci?n no tiene kiet fin reemplazar el consejo del m?dico. Aseg?rese de hacerle al m?dicocualquier pregunta que tenga. Document Released: 2016-07-24 Document Updated: 2022-01-16 Document Reviewed: 2022-01-16 Carmine Patient Education ? 2023 Tier 1 Performance. documented in this encounter Plan of Treatment Not on file documented as of this encounter Visit Diagnoses Diagnosis Acute nonintractable headache, unspecified headache type- Primary Neck pain, musculoskeletal documented in this encounter Additional Health Concerns Assessment Noted Time PHQ-9 Depression Total Score: 0 09/22/19 24 2:51 PM EDT documented as of this encounter Care Teams Machine Shop Instructor Relationship Specialty Start Date End Date Amina Nieves MD [address] [place] [id number] PCP - General Family Medicine 04/07/21 documented as of this encounter
--- OUTSIDE RECORDS SUMMARY | 2024-09-07 12:40 | XMS_ITS | Patient Health Record ---
Author Organization [facility] Address [address] [facility] [place] [address] Care Team Providers Care Dietetic Aide Name Role Phone Carmen Santiago Primary Care Provider UnavailRisa Toussaint Unavailable [phone] Allergies Allergen (clinical drug ingredient) Drug/Non Drug Allergy documented on EMR Reaction Allergy Type Onset Date Status amoxicillin Amoxicillin Unknown Drug Allergy Act parth Penicillin Unknown Drug Allergy Active Reason For Referral No Information Medications Medication SIG (Take, Route, Frequency, Duration) Notes Start Date End Date Status metFORMIN HCl ER 500 MG 1 tablet with ev ening meal Orally Once a day for 30 day(s) Active Irbesartan 300 MG 1 tablet Orally Once a day for 30 day(s) Active amLODIPine Besylate 5 MG 1 tablet Orally Once a day for 30 day(s) Active Extra Depth Orthopedic Shoes (1 Pair) with Customized Heat Molded Multidensity Innersoles (3 Pair) as directed Dx: NIDDM/Polyneuropathy (E11.42), Hammertoe Foot Deformity (M20.41,M20.42), Preulcerative Skin Lesion(s) (L85.1 05/28/2023 Active Magnesium Active Vitamin D3 50 MCG (1999 UT) [...] (M20.41,M20.42), Preulcerative Skin Lesion(s) (L85.1 05/27/2020 Not-Taking Isosorbide Mononitrate ER 30 MG 1 tablet in the morning Orally Once a day for 30 day(s) Active Gabapentin 100 MG 1 capsule Orally Onc e a day for 30 day(s) Active Immunizations Vaccine Route Administration Date Status Comme nts COVID-19 Moderna Vaccine Unknown 12/25/2020 Administered First Dose:12/04 Influenza Unknown 03/29/2020 Administered Influenza Unknown 06/09/2021 Administered Influenza Unknown 05/27/2023 Administered Social History Tobacco Use: Social History Observation [...] Are you an other tobacco user? No Problems Problem Type SNOMED Code ICD Code Onset Dates Problem Status W/U Status Risk Notes Problem Acquired hammer toe of right foot (5608058005447084 ) Other hammer toe(s) (acquired), right foot (M20.41) Active confirmed Problem Acquired hammer toe of left foot (9375410665213758 ) Other hammer toe(s) (acquired), left foot (M20.42) Active confirmed Problem Polyneuropathy due to type 2 diabetes mellitus (581384338) Type 2 diabetes mellitus with diabetic polyneuropathy (E11.42) Active confirmed Problem [id number] Hammer toe of right foot (M20.41) Active confirmed Problem 214167532 Neuropathy (G62.9) Active confirmed Problem 00449778 Osteoarthritis o f right ankle and foot (M19.071) Active confirmed Vital Signs Blood pressure diastolic 70 mm Hg 06/30/2024 Height 4ft 11in in 06/30/2024 Blood pressure systolic 160 mm Hg 06/30/2024 Weight 235 lbs 06/30/2024 BMI 47.46 kg/m2 06/30/2024 Encounters Encounter Location Date Provider Diagnosis [address] [id number] 11/09/2023 Risa Chen Type 2 diabetes mellitus with diabetic polyneuropathy E11.[address] [address] 01/26/2024 Risa Chen Type 2 diabetes mellitus with diabetic polyneuropathy E11.42 ; Neuropathy G62.9 and Neuropathic pain M79.[address] [address] 04/11/2024 Risa Chen Type 2 diabetes mellitus with diabetic polyneuropathy E11.42 and Xerosis of skin L85.[address] [address] 06/30/2024 Risa Chen Type 2 diabetes mellitus with diabetic polyneuropathy E11.42 and Xerosis of skin L85.3 Assessments Encounter Date Diagnosis (ICD Code) Assessment Notes Treatment Notes Treatment Clinical Notes Section Notes 11/09/2023 Type 2 diabetes mellitus with diabetic polyneuropathy (ICD-10 - E11.42) 01/26/2024 Type 2 diabetes mellitus with diabetic polyneuropathy (ICD-10 - E11.42) 01/26/2024 Neuropathy (ICD-10 - G62.9) 04/11/2024 Type 2 diabetes mellitus with diabetic polyneuropathy (ICD-10 - E11.42) 04/11/2024 Xerosis of skin (ICD-10 - L85.3) 06/30/2024 Type 2 diabetes mellitus with diabetic polyneuropathy (ICD-10 - E11.42) 06/30/2024 Xerosis of skin (ICD-10 - L85.3) 01/26/2024 Neuropathic pain (ICD-10 - M79.2) Plan Of Treatment Pending Test Test Name Order Date X ray : Foot, left 3V 12/18/2020 X ray : Foot, right 3V 05/23/2021 X ray : Foot, right 3V 05/27/2020 Next Appt Details Provider Name:Risa singh, 09/13/2024 10:45:00 AM, [address] [place] [address], [phone], Insurance Providers Payer Name Payer Address Payer Phone Subscriber Number Group Number Insured Name Patient Relationship to Insured Coverage Start Date Coverage End Date [facility] [employer] Claims [address] [place] [phone] [id number] Karon Howard Self - patient is the insured Medical (General) History Medical History History ICD Code Arthritis asthma type I diabetes Headaches High blood pressure Cataracts Joint implants/screws Cholesterol Surgical History Surgery Date(Month/Year)
--- OUTSIDE RECORDS SUMMARY | 2024-09-07 12:40 | XMS_ITS | Encounter Summary ---
Author Organization [employer] Address [address] [place] [address] [address] [place] [address] Care Team Providers Care Broker Associate Name Role Phone Amina Nieves MD Primary Care Provider [phone] Reason for Visit * Reason Comments Med Refill Encounter Details Date Type Department Care Team ([facility] st Contact Info) Description 01/23/2023 Refill [facility] [address], [place] [phone] Amina Nieves MD [address] [place] [address] Social History Tobacco Use Types Packs/Day Years [...] documented as of this encounter Care Teams Broker Associate Relationship Specialty Start Date End Date Amina Nieves MD [address] [place] [address] PCP - General Family Medicine 04/07/21 documented as of this encounter
--- OUTSIDE RECORDS SUMMARY | 2024-09-07 12:40 | XMS_ITS ---
Author Organization [facility] Address [address] [facility] [place] [address] Care Team Providers Care Chemist Instrumentation Name Role Phone Carmen Santiago Primary Care Provider Unavailab Risa Castellanos Unavailable [phone] Allergies Allergen (clinical drug ingredient) Drug/Non Drug Allergy documented on EMR Reaction Allergy Type Onset Date Status amoxicillin Amoxicillin Unknown Drug Allergy Act parth Penicillin Unknown Drug Allergy Active REASON FOR VISIT At Risk Footcare Medications Medication SIG (Take, Route, Frequency, Duration) Notes Start Date End Date Status Magnesium Active Aspirin 81 81 MG 1 tablet [...] (M20.41,M20.42), Preulcerative Skin Lesion(s) (L85.1 05/28/2023 Active metFORMIN HCl ER 500 MG 1 tablet with ev ening meal Orally Once a day for 30 day(s) Active Irbesartan 300 MG 1 tablet Orally Once a day for 30 day(s) Active Rosuvastatin Calcium 10 MG 1 tablet Orally Once a day for 30 day(s) Active Oyster Shell Calcium/D 500-200 MG-UNIT 1 tablet Orally Active Vitamin D3 50 MCG (2000 UT) as directed Orally Once a day Active Metoprolol Succinate 50 MG 1 capsule Orally Once a day for 30 day(s) Active Isosorbide Mononitrate ER 30 MG 1 tablet in the morning Orally Once a day for 30 day(s) Active Gabapentin 100 MG 1 capsule Orally Onc e a day for 30 day(s) Active Farxiga 10 MG 1 tablet Orally Once a day Active Social History Tobacco Use: Social History Observation Description Date Details (start date - stop date) Never Smoker NA - NA Tobacco Use/Smoking Question Answer Notes Are you a: nonsmoker Additional Findings: Tobacco Non-User Aggressive non-smoker Tobacco use other than smoking: Question Answer Notes Are you an other tobacco user? No Vital Signs Height 8cg05mq in 01/26/2024 Weight 235 lbs 01/26/2024 BMI 47.46 kg/m2 01/26/2024 Encounters Encounter Location Date Provider Diagnosis [facility] [address] [address] 01/26/2024 Risa Chen Type 2 diabetes mellitus with diabetic polyneuropathy E11.42 ; Neuropathy G62.9 and Neuropathic pain M79.2 Assessments Encounter Date Diagnosis (ICD Code) Assessment Notes Treatment Notes Treatment Clinical Notes Section Notes 01/26/2024 Type 2 diabetes mellitus with diabetic polyneuropathy (ICD-10 - E11.42) 01/26/2024 Neuropathy (ICD-10 - G62.9) 01/26/2024 Neuropathic pain (ICD-10 - M79.2) Plan Of Treatment Next Appt Details Follow Up: 2 Months, Reason: Provider Name:Rsia singh, 09/13/2024 10:45:00 AM, [address] [place] [address], [id number], Procedure Notes * Category Sub-Category Detail Notes Keratoma Treatment Parring or Cutting o f Benign Hyperkeratotic Lesion(s) 36213 (2-4 Lesions) - The Benign hyperkeratotic lesions, as described above were pared, and/or cut utilizing a sterile #15 blade, tissue nippers, and/or dremel Nail Reduction Nail Reduction Trimming of dyst rophic nails performed to reduce/remove overall nail length and girth, by manual and electrical means with use of a nail nipper and/or dremel, to more viable healthy nail plate or bed tissue 6-10 (G0127) Progress Notes * Yen ARELLANOOB: [birth year] (68 yo F)Acc No.[id number]:01/26/2024 Progress Note Patient:?Karon Arellano Provider:?Risa Chen DPM :1955???Age:68 Y???Sex:Female D ate:01/26/2024 Address:[address] [place] [address], [facility], [id number] Pcp:Carmen Santiago Subjective: * Chief Complaints: * ???At Risk Footcare * HPI: ???At Risk footcare:?Pt States Last PCP Visit:?Date?12/11/2023 ? Pt presents with son who provides translation. ???Foot Pain:?Nature:?burning , tingling.?Location:?B/L.?Duration:?several months.?Onset:?gradual, diabetes.?Course:?worse.? * ROS:?General/Constitutional:?Nausea?denies.?Vomiting?denies.?Hunger Thirst?denies.?Loss appetite?denies.?Chills?denies.?Fatigue?denies.?Fever?denies.?Night Sweats?denies.?Unexplained weight loss?denies.?Unexplained [...] than smoking?Are you an other tobacco user??No ???Miscellaneous:?Caffeine: yes, frequency:, 1-2 cups per day. [...] * Allergies:?Leonid adrian[Allergies Verified] Objective: * Vitals:?Ht: 9ma18uq, Wt:235, BMI:47.46, Shoe size: 8, BS: 135, Ht-cm: 149.86 cm, Wt-k.59 kg. * Examination: ???Ophthalmology Referral: ?DIABETES EYE EXAM?Diabetic Retinopathy Screening:?Yes ?Findings of Diabetic Eye Exam:?no retinopathy?Neurological: ?SENSORY:? Neurological exam demonstrates, reduced light touch [...] exam reveals Keratotic lesion(s) located at, TA, T5.?Vascular: ?DP PULSES:?3/4, B/L.?PT PULSES:?3/4, B/L.?CAPILLARY FILL TIME:?immediate, all digits, B/L.?SKIN TEMPERTURE GRADIENT OF THE LOWER EXTERMITIES:?normal, warm to cool, proximal to distal, B/L, B/L.?HAIR GROWTH/TEXTURE/ELASTICITY/TURGOR:?normal, B/L.? Assessment: * Assessment: 1.?Type 2 diabetes mellitus with diabetic polyneuropathy - E11.42 (Primary)?2.?Neuropathy - G62.9?3.?Neuropathic pain - M79.2? Plan: * Treatment: * Procedures:?Keratoma Treatment:?Parring or Cutting of Benign Hyperkeratotic Lesion(s)?83600 (2-4 Lesions) - The Benign hyperkeratotic lesions, as described above were pared, and/or cut utilizing a sterile #15 blade, tissue nippers, and/or dremel.?Nail Reduction:?Nail Reduction?Trimming of dystrophic nails performed to reduce/remove overall nail length and girth, by manual and electrical means with use of a nail nipper and/or dremel, to more viable healthy nail plate or bed tissue 6-10 (G0127).? * Procedure Codes:?G0127 ASHLEIGH ING DYSTROPHIC NAILS ANY #, Modifiers: XS 59646 TRIM SKIN LESIONS, 2 TO 4, Modifiers: XS * Preventive Medicine:? ??Counseling:?Discussion:?-13: [...] have encouraged the patient to call the office.?Consult:?The Pt. was counseled on the diagnosis, treatment options, and the need for a endocinology consult.?Neuritis/Neuropathy:?The patient was counseled on the diagnosis, possible etiologies (including mechanical stress, injury, entrapment, chemotherapy, diabetes, vertebral disk herniation if hx), treatment options, and importance for adherence to recommendations in order to address the patients Neuritis/Neuropathy. The advantages and disadvantages re: Accomidative mechanical support/offloading, Topical vs PO analgesics including aspercream/Voltaren gel/Lidoderm patches/Neurontin/Lyrica along with their potential side effects were discussed with the patient to their satisfaction. Also discussed the use of therapeutic injectable cortisone if needed. Surgical treatment, if considered an option, was discussed as well. If surgery is warranted, we discussed the potential successful outcomes as well as the possible complications such as failure, painful scar, permanent tingling/numbness/neuralgea/or intractable pain. Patient questions re: medication use, dosage, and possible side effects and drug interactions were reviewed and the answers to each understood. If the condition worsens, the patient was instructed to contact the office for an appointment. The patient verbally confirmed a full understanding of the above.? * Follow Up:?2 Months * Images: * Sign off status: Completed true * Provider:?Risa Chen DPM Date:? Generated for Cheryl bundy/Rashard/Pedro on:?09/07/2024 12:40 PM EST History and Physical Notes * HPI (History of Present Illness) Category Sub-Category Detail Notes Category Not es At Risk footcare Pt States Last PCP Visit: Date: 12/11/2023 Pt presents with son who provides translation Foot Pain Nature: burning , tingling Location: B/L Duration: several months Onset: gradual, diabetes Course: worse Examination Category Sub-Category Detail Notes Category Not [...] s Keratotic lesion(s) located at, TA, T5 Ophthalmology Referral DIABETES EYE EXAM Diabeti c Retinopathy Screening:: Yes Findings of Diabetic Eye Exam:: no retin opathy Vascular DP PULSES (B): 3/4, B/L PT PULSES (B): 3/4, B/L CAPILLARY FILL TIME: immediate, all digi ts, B/L TEMPERTURE GRADIENT (C): normal, warm to cool, proximal to distal, B/L, B/L TROPHIC CONDITION-TEXTURE/ELASTICITY/TURGOR/HAIR GROWTH (B): normal, B/L Nails NAILS are: 1-5 B/L, nails are elongated , overgrown, dystrophic
== END 2024-09-07 11:12 | disposition home or self-care (01) ==
LOC: HO.HOS 10:40
PROVIDERS: PCP General Practice; Visit Provider Orthopaedic Surgery
DX: M17.11 Unilateral primary osteoarthritis, right knee (principal)
CPT/HCPCS: 20610

== ENCOUNTER → 2024-09-07 10:40 | Outpatient (BNVA) | payer OTHER, SELFPAY | PROVIDERS: PCP General Practice; Visit Provider Orthopaedic Surgery | DX: M17.11 Unilateral primary osteoarthritis, right knee (principal) | CPT/HCPCS: 20610; J7318 ==

== ENCOUNTER 2024-09-18 08:00 | Outpatient (REF) | payer OTHER, SELFPAY ==
--- NOTE | ~2024-09-18 | US_ITS ---
CLINICAL HISTORY: N20.0 - Calculus of kidney US renal with Color Doppler Comparison: US/SR - US RENAL BI - 03/14/24 09:18 EDT Findings: Right kidney normal size and echotexture, 10.4 cm length. No hydronephrosis calculus or mass. Normal color flow. Left kidney normal size and echotexture, 12.6 cm length. No hydronephrosis calculus or mass. Normal color flow. Impression: 1. Normal renal ultrasound This document has been electronically signed by: Jose Lee MD on 09/18/2024 09:40:20
--- NOTE | ~2024-09-18 | XR_ITS ---
EXAMINATION: XR ABDOMEN 1 VIEW (KUB) HISTORY: N20.0 - Calculus of kidney COMPARISON: Comparison is made with the prior examination dated 09/17/2023. FINDINGS: Two supine views of the abdomen are submitted. The bowel gas pattern is unremarkable, without evidence of mechanical obstruction. There are vascular calcifications in the left upper quadrant and pelvis. No abnormal calcifications overlie the renal shadows. There are no abnormal soft tissue masses. There is degenerative disc disease of the spine. XR/XR KUB IMPRESSION: No suspicious calcifications are identified. Electronically signed by: Celso Dumas MD 09/19/2024 08:46 AM EDT
--- OUTSIDE RECORDS SUMMARY | 2024-09-18 08:07 | XMS_ITS ---
Author Organization [facility] Address [address] [place] [address] Care Team Providers Care Director Business Name Role Phone Carmen Santiago Primary Care Provider Unavailab Risa Castellanos Unavailable [phone] Allergies Allergen (clinical drug ingredient) Drug/Non Drug Allergy documented on EMR Reaction Allergy Type Onset Date Status amoxicillin Amoxicillin Unknown Drug Allergy Act parth Penicillin Unknown Drug Allergy Active REASON FOR VISIT At Risk Footcare, Skin problem(s), Toe Irritation Medications Medication SIG (Take, Route, Frequency, Duration) Notes Start Date End Date Status Farxiga 10 MG 1 tablet Orally Once a day Active Gabapentin 100 MG 1 capsule Orally Onc e a day for 30 day(s) Active Magnesium Active amLODIPine Besylate 5 MG 1 tablet Orally Once a day for 30 day(s) Active Aspirin 81 81 MG 1 tablet Orally Once a day for 30 day(s) Active Extra Depth Orthopedic Shoes (1 Pair) with Customized Heat Molded Multidensity Innersoles (3 Pair) as directed Dx: NIDDM/Polyneuropathy (E11.42), Hammertoe Foot Deformity (M20.41,M20.42), Preulcerative Skin Lesion(s) (L85.1 09/13/2024 Active Ammonium Lactate 12 % 1 application to affected area Externally Twice a day to dry areas of skin on feet for 30 days 09/13/2024 Active Vitamin D3 50 MCG (1999 UT) as directed Orally Once a day Active Extra Depth Orthopedic Shoes (1 Pair) with Customized Heat Molded Multidensity Innersoles (3 Pair) as directed Dx: NIDDM/Polyneuropathy (E11.42), Hammertoe Foot Deformity (M20.41,M20.42), Preulcerative Skin Lesion(s) (L85.1 05/28/2023 Active Extra Depth Orthopedic Shoes (1 Pair) with Customized Heat Molded Multidensity Innersoles (3 Pair) as directed Dx: NIDDM/Polyneuropathy (E11.42), Hammertoe Foot Deformity (M20.41,M20.42), Preulcerative Skin Lesion(s) (L85.1 05/27/2020 Not-Taking Irbesartan 300 MG 1 tablet Orally Once a day for 30 day(s) Active Oyster Shell Calcium/D 500-200 MG-UNIT 1 tablet Orally Active Rosuvastatin Calcium 10 MG 1 tablet Orally Once a day for 30 day(s) Active Metoprolol Succinate 50 MG 1 capsule Orally Once a day for 30 day(s) Active metFORMIN HCl ER 500 MG 1 [...] other tobacco user? No Vital Signs Height 4eg11nw in 09/13/2024 Weight 235 lbs 09/13/2024 BMI 47.46 kg/m2 09/13/2024 Blood pressure systolic 160 mm Hg 09/14/19 25 Blood pressure diastolic 75 mm Hg 025 Encounters Encounter Location Date Provider Diagnosis [facility] [address] [place] [address] 09/13/2024 Risa Chen Type 2 diabetes mellitus with diabetic polyneuropathy E11.42 ; Xerosis of skin L85.3 ; Other hammer toe(s) (acquired), right foot M20.41 and Other hammer toe(s) (acquired), left foot M20.42 Assessments Encounter Date Diagnosis (ICD Code) Assessment Notes Treatment Notes Treatment Clinical Notes Section Notes 09/13/2024 Type 2 diabetes mellitus with diabetic polyneuropathy (ICD-10 - E11.42) 09/13/2024 Xerosis of skin (ICD-10 - L85.3) 09/13/2024 Other hammer toe(s) (acquired), right foot (ICD-10 - M20.41) Patient Educated with: DIABETIC FOOT CARE INSTRUCTIONS. pdf (DIABETIC FOOT CARE INSTRUCTIONS. pdf) 09/13/2024 Other hammer toe(s) (acquired), left foot (ICD-10 - M20.42) Plan Of Treatment Medication Medication Name Sig Start Date Stop Date Notes Extra Depth Orthopedic Shoes (1 Pair) with Customized Heat Molded Multidensity Innersoles (3 Pair) as directed Dx: NIDDM/Polyneuropathy (E11.42), Hammertoe Foot Deformity (M20.41,M20.42), Preulcerative Skin Lesion(s) (L85.1 09/13/2024 Ammonium Lactate 12 % 1 application to a ffected area Externally Twice a day to dry areas of skin on feet for 30 days 09/13/2024 Treatment Notes Assessment Notes Other hammer toe(s) (acquired), right fo ot Patient Educated with: DIABETIC FOOT CARE INSTRUCTIONS.pdf (DIABETIC FOOT CARE INSTRUCTIONS.pdf) Next Appt Details Follow Up: 2 Months, Reason: Provider Name:Risa singh, 11/28/2024 10:00:00 AM, [address] [place] [address], [id number], Procedure Notes * Category Sub-Category Detail Notes [...] risk. Therefore, the benign hyperkeratotic lesions, ( 6) in total, locations as stated and described in the exam ( TA, T5 SUB MTH (s) 1 B/L Heel(s) B/L ,), were pared, and/or cut utilizing a sterile 15 blade, tissue nippers, and/or power dremel instrumentation by the physician of record - [id number] Nail Reduction Nail Reduction (-27) Trimming o f all dystrophic nails - Due to the at risk nature of the patients medical condition as documented in the exam findings, performance of this nail treatment is medically necessary as its management by an unskilled/untrained nonprofessional would put this patients foot and overall health at risk. Therefore, the dystrophic nails, in locations as stated and described in the exam ( TA, T1, T2, T3, T4, T5, T6, T7, T8, T9, ), were debrided by the phisician of record to reduce/remove overall nail length and girth, by manual and electrical means with use of a nail nipper and/or dremel, to more viable healthy nail plate or bed tissue - G0127 Progress Notes * Cheri ARELLANOsDOB: [birth year] (69 yo F)Acc No.[id number]:09/13/2024 Progress Note Patient:?ALEKSEY Karon Provider:?Risa Chen DPM :1955???Age:69 Y???Sex:Female D ate:09/13/2024 Address:[address] [place], [place] [id number] Pcp:Carmen Santiago Subjective: * Chief Complaints: * ???At Risk FootcareSkin prob lillian(s)Toe Irritation * HPI: ???At Risk footcare:?Pt States Last PCP Visit:?Date?07/12/2024 ?Pt presents with son who provides translation. ???Skin problems:?Nature:?dryness , scaling.?Location:?B/L .?Duration:?a few months.?Course:?worse.?Toe pain:?Location:?B/L feet.?Duration:?several years.?Course:?worse.?Aggravated by:?shoes, any pressure.?Treatments:?change in shoes.? * ROS:?General/Constitutional:?Nausea?denies.?Vomiting?denies.?Hunger Thirst?denies.?Loss appetite?denies.?Chills?denies.?Fatigue?denies.?Fever?denies.?Night Sweats?denies.?Unexplained weight loss?denies.?Unexplained weight gain?denies.?HEENTM:?Dentures?denies.?Dizziness?denies.?Glasses/contacts?denies.?Retinopathy?den ies.?Blurred/double vision?denies.?TMJ?denies.?Discharge/drainage?denies.?Implants?denies.?Sore throat?denies.?Dental implants?denies.?Hard of hearing ?denies.?Difficulty chewing/swallowing/speaking?denies.?Nose bleeds?denies.?Sore mouth?denies.?Respiratory:?On O xygen?denies.?Pneumonia/pleurisy?denies.?Bronchitis?denies.?Emphysema?denies.?Co ughing?denies.?Cough blood?denies.?Shortness of breath?denies.?Wheezing?denies.?Cardiovascular:?Pacemaker?denies.?MVP?denies.?WPW?denies.?CHF?denies.?Heart attack?denies.?Septal defect?denies.?Rapid beat?denies.?Chest pain ?denies.?Atrial Fib.?denies.?Murmur/Palpitations?denies.?Gastrointestinal:?Hemorrhoids?denies.?Stomach/Abdominal pain?denies.?Dark blood stool?denies.?Irritable bowel ?denies.?Constipation?denies.?Diarrhea?denies.?Hematology:?Swelling?denies.?Clots?denies.?Varicose Veins?denies.?Bruising?denies.?Bleeding problem?denies.?Genitourinary:?Blood urine?denies.?Frequent/Painfu/urination/bladder control?denies.?Kidney stones?denies.?Infection (UTI)?denies.?Nephropathy?denies.?sex trans dis (STD)?denies.?Prostate?denies.?Musculoskeletal:?Hammertoes?denies.?Bunions?denies.?Back Pain?denies.?Muscle Cramps/ Resting?denies.?Muscle cramps / walking?denies.?Generalized aches and pains?denies.?Weakness?denies.?Integ.:?Roberts?denies.?Scars?denies.?Corns/calluses?denies.?Ingrown nails?denies.?Painful nails?denies.?Open Sores?denies.?Rashes?denies.?Neurologic:?Difficulty sleeping?denies.?Brain disorder?denies.?Numbness?admits.?Balance t rouble?denies.?Confusion?denies.?Fainting/blackouts?denies.?Tingling?admits.?Yvon mors?denies.? * Medical History:? * Surgical History:?cataract r emoval 06/2024 * Hospitalization/Major Diagno stic Procedure:?Denies Past Hospitalization [...] a day Taking Vitamin D3 50 MCG (1999 UT) Capsule [...] * Allergies:?Leonid adrian[Allergies Verified] Objective: * Vitals:?Ht: 1jj63in, Wt:235, BMI:47.46, Shoe size: 8, BP:160/75mm Hg, BS: 165, Ht-cm: 149.86 cm, Wt-k.6 kg. * Examination: ???Ophthalmology Referral: ?DIABETES EYE EXAM?Procedure Performed:?Yes ?Date of Exam Performed?02/10/2024 ?Findings of Diabetic Eye Exam:?no retinopathy?CQM Exceptions:: ?Hemoglobin A1c not performed?Reason:?No reason specified?Neurological: ?SENSORY:? Neurological exam demonstrates, reduced light touch sensation, reduced sharp/dull pin prick discrimination , reduced vibration sensation, reduced proprioception sensation, in a stocking fashion, 5.07 monofilament test performed at plantar aspects of 5 varied sites per foot shows sensation, reduced , B/L, Pt relates, burning, hyperesthesia, shooting/radiating sensation, B/L.?Nails: ?NAILS are:?TA, T1, T2, T3, T4, T5, T6, T7, T8, T9, nails are elongated, overgrown, dystrophic.?Dermatologic: ?SKIN FINDINGS:?Skin exam reveals Keratotic lesion(s) located at, TA, T5 SUB MTH (s) 1 ?B/L Heel(s) B/L , Skin STILL, shows sign(s) of, dryness, scaling, in a stocking fashion, no fissure(s) present, B/L.?Vascular: ?DP PULSES (B):?3/4, B/L.?PT PULSES (B):?3/4, B/L.?CAPILLARY FILL TIME:?immediate, all digits, B/L.?TROPHIC CONDITION-TEXTURE/ELASTICITY/TURGOR/HAIR GROWTH (B):?normal, B/L.?TEMPERTURE GRADIENT (C):?normal, warm to cool, proximal to distal, B/L, B/L.?Orthopedic: ?MUSCLE STRENGTH:?5/5 all groups in a symmetrical fashion, B/L.?DIGITAL DEFORMITIES:?Digital contracture, PIPJ, 2-5 B/L, incompl-reducible to push-up test, no over, nor underlapping,?there is?evidence of shoe producing skin irritation.?FOOTWEAR:?worn, non-supportive, shoe gear properties exacerbate patient's foot/toe deformity.?General Examination: ?GENERAL APPEARANCE:?Reveals a pleasant, alert, well nourished, well- developed, well hydrated individual, who demonstrates proper attention to hygiene/body habitus, and is in no acute distress, Pt serves as own historian for office visit today.?ORIENTED:?person, place, and time.?FOOT EXAM:?Lower Extremity Neurological Exam performed:?Yes Date ?Visual exam of foot performed:?Yes ?Date?09/13/2024 ?Footwear Evaluation?Footwear Evaluation performed:?Yes??? Assessment: * Assessment: 1.?Type 2 diabetes mellitus with diabetic polyneuropathy - E11.42???2.?Xerosis of skin - L85.3 (Primary)???Specify :Acute problem, Uncomplicated (3),Rx Management (4)???3.?Other hammer toe(s) (acquired), right foot - M20.41???Specify :Chronic problem, Worse (4),Rx Management (4)???4.?Other hammer toe(s) (acquired), left foot - M20.42???Specify :Chronic problem, Worse (4),Rx Management (4)??? Plan: * Treatment: 2.?Other hammer toe(s) (acqu ired), right foot? Start Extra Depth Orthopedic Shoes (1 Pair) with Customized Heat Molded Multidensity Innersoles (3 Pair), as directed, Dx: NIDDM/Polyneuropathy (E11.42), Hammertoe Foot Deformity (M20.41,M20.42), Preulcerative Skin Lesion(s) (L85.1, 1, Refills 0.?? Notes: Patient Educated with: DIABETIC FOOT CARE INSTRUCTIONS.pdf (DIABETIC FOOT CARE INSTRUCTIONS.pdf)?? * Procedures:?Keratoma Treatment:?Parring or Cutting of Benign Hyperkeratotic Lesion(s)?(-57) More than 4 Lesions - Due to the at risk nature of the patients medical condition as documented in the exam findings, performance of this keratoderma treatment is medically necessary as its management by an unskilled/untrained nonprofessional would put this patients foot and overall health at risk. Therefore, the benign hyperkeratotic lesions, ( 6) in total, locations as stated and described in the exam (?TA,?T5?SUB MTH (s)?1? B/L?Heel(s)?B/L?,), were pared, and/or cut utilizing a sterile 15 blade, tissue nippers, and/or power dremel instrumentation by the physician of record - [id number].?Nail Reduction:?Nail Reduction?(-27) Trimming of all dystrophic nails - Due to the at risk nature of the patients medical condition as documented in the exam findings, performance of this nail treatment is medically necessary as its management by an unskilled/untrained nonprofessional would put this patients foot and overall health at risk. Therefore, the dystrophic nails, in locations as stated and described in the exam ( TA, T1, T2, T3, T4, T5, T6, T7, T8, T9, ), were debrided by the phisician of record to reduce/remove overall nail length and girth, by manual and electrical means with use of a nail nipper and/or dremel, to more viable healthy nail plate or bed tissue - G0127.? * Procedure Codes:?G0127 ASHLEIGH ING DYSTROPHIC NAILS ANY #, Modifiers: XS [id number] TRIM SKIN LESIONS, OVER 4, Modifiers: XS * Preventive Medicine:? ??Counseling:?Discussion:?-14: Office or other outpatient visit for the evaluation and management of an established patient, which required a medically appropriate history and/or examination and MODERATE level of DECISION MAKING for: 1 OR MORE CHRONIC PROBLEM(S) THATS WORSENING, 2 STABLE CHRONIC PROBLEMS, A NEWLY DIAGNOSED PROBLEM WITH UNCERTAIN PROGNOSIS, AN ACUTE COMPLICATED INJURY WITH MULTIPLE TREATMENT OPTIONS, OR AN ACUTE PROBLEM WITH ACCOMPANYING SYSTEMIC SYMPTOMS, THAT POSE(S) A MODERATE RISK OF MORBIDITY. THIS CONDITION MAY ALSO INCLUDE RX DRUG MANAGEMENT, OR A DECISON FOR MINOR SURGERY. The visit on the day of the [...] have encouraged the patient to call the office.?Digital Surgery:?Digital surgery was discussed with the patient, We elected to try conservative treatment at the present time, due to the patients medical history and increased asssociated post-operative risks.?Digital Treatment:?HT- I explained to the patient the possible etiologies of Hammertoes, including genetics/foot type/shoegear/activity level/exercise routine and the risks/benefits of all the different treatment options for their pain including: No treatment at all, Rest, Ice, New/supportive/wider/deeper Shoegear, Digital Padding/Strapping/Taping/Bracing/Gel protective sleeves, Foot/Ankle AFO Bracing, Stretching exercises, Deep Tissue Massage, Arch support/shoe inserts with splay metatarsal padding, and Custom orthoses. I insisted that any digital devices be removed daily and not worn overnight for safety. The patient is to carefully examine the toes daily for any skin irritation while using any splinting or padding device. The advantages and disadvantages of each option were discussed and the patients questions re: shoegear, padding, custom vs prefabricated inserts, activity level, and consistency in home treatment regimens for optimal success were answered to their verbally confirmed satisfaction.?Shoe Gear Counseling:?SHOE Rx - The patient was counseled in great detail on their muscoloskeletal foot and toe deformities which coincided with the dermatological presentations visualized on exam. We discussed how their deformities put the integrity of their feet at risk for potential pedal complications which makes the accomidative diabetic shoes and cutomizable inserts medically necessary. We discussed the different shoe and insert treatment types and options, as well as the important advantages for adhering to regularly wearing these accomidative devices daily. The patient was made aware of the fact that a failure to abide by these recommedations may be deleterious to their foot health as they are able to prevent many pedal complications such as skin irritation, skin ulceration, infection, and even loss of toe/foot/leg/or life. Time was also spent with the patient dispensing and discussing proper diabetic footcare techniques including daily skin moisturization, daily foot inspection for any interruption in skin integrity including open lesions, or sign of infection such as redness/malodor/drainage/swelling. Also discussed and recommended were procedures regarding daily shoe inspection for the presence of internal foreign bodies as well as any visualized irregular shoe or insert wear. Patient questions re: shoes, inserts, and self foot inspections were answered to their satisfaction as the patient verbally confirmed a full understanding of the above information. A Rx for Extra Depth Orthopedic Shoes with 3 pair of custom heat-molded inserts was dispensed.?Xerosis:?The patient was counseled on the diagnosis, potential [...] their pharmacy at the time of visit.? ??Screening/Special Tests:?Fall Risk?Screening:?No falls in the past year ?FALLS: Screening for Future Fall Risk?Have you had any falls with injury in the past year??No * Follow Up:?2 Months * Images: * Sign off status: Completed true * Provider:?Risa Chen DPM Date:?11/2024 Generated for Cheryl bundy/Rashard/Pedro on:?09/18/2024 08:06 AM EDT History and Physical Notes * HPI (History of Present Illness) Category Sub-Category Detail Notes Category Not es Toe pain Location: B/L feet Duration: several years Course: worse Aggravated by: shoes, any pressure Treatments: change in shoes Skin problems Nature: dryness , scaling Location: B/L Duration: a few months Course: worse At Risk footcare Pt States Last PCP Visit: Date: 07/12/2024 Pt presents with son who provides translation [...] at, TA, T5 SUB MTH (s) 1 B/L Heel(s) B/L , Skin STILL, shows sign(s) of, dryness, scaling, in a stocking fashion, no fissure(s) present, B/L Orthopedic FOOTWEAR: worn, non-suppor tive, shoe gear properties exacerbate patient's foot/toe deformity DIGITAL DEFORMITIES: Digital contracture , PIPJ, 2-5 B/L, incompl-reducible to push-up test, no over, nor underlapping, there is evidence of shoe producing skin irritation MUSCLE STRENGTH: 5/5 all groups in a symmetrical fashion, B/L General Examination GENERAL APPEARANCE: Reveals a pleasant, alert, well nourished, well-developed, well hydrated individual, who demonstrates proper attention to hygiene/body habitus, and is in no acute distress, Pt serves as own historian for office visit today FOOT EXAM: Lower Extremity Neurological Exa m performed:: Yes Date Visual exam of foot performed:: Yes Date: 09/13/2024 ORIENTED: person, place, and t chen Footwear Evaluation Footwear Evaluation performe d:: Yes Ophthalmology Referral DIABETES EYE EXAM Procedure Perform ed:: Yes ?Date of Exam Performed: 02/10/2024 Findings of Diabetic Eye Exam:: no retin opathy Vascular DP PULSES (B): 3/4, B/L PT PULSES (B): 3/4, B/L CAPILLARY FILL TIME: immediate, all digi ts, B/L TEMPERTURE GRADIENT (C): normal, warm to cool, proximal to distal, B/L, B/L TROPHIC CONDITION-TEXTURE/ELASTICITY/TURGOR/HAIR GROWTH (B): normal, B/L Nails NAILS are: TA, T1, T2, T3, T4, T5, T6, T7, T8, T9, nails are elongated, overgrown, dystrophic CQM Exceptions: Hemoglobin A1c not performed Reason:: No r brittany specified
--- OUTSIDE RECORDS SUMMARY | 2024-09-18 08:07 | XMS_ITS | Patient Health Record ---
Author Organization [facility] Address [address] [place] [address] Care Team Providers Care General Neurologist Name Role Phone Carmen Santiago Primary Care Provider UnavailRisa Toussaint Unavailable [phone] Allergies Allergen (clinical drug ingredient) Drug/Non Drug Allergy documented on EMR Reaction Allergy Type Onset Date Status amoxicillin Amoxicillin Unknown Drug Allergy Act parth Penicillin Unknown Drug Allergy Active Reason For Referral No Information Medications Medication SIG (Take, Route, Frequency, Duration) Notes Start Date End Date Status Extra Depth Orthopedic Shoes (1 Pair) with Customized Heat Molded Multidensity Innersoles (3 Pair) as directed Dx: NIDDM/Polyneuropathy (E11.42), Hammertoe Foot Deformity (M20.41,M20.42), Preulcerative Skin Lesion(s) (L85.1 09/13/2024 Active Irbesartan 300 MG 1 tablet Orally Once a day for 30 day(s) Active Ammonium Lactate 12 % 1 application to affected area Externally Twice a day to dry areas of skin on feet for 30 days 09/13/2024 Active Farxiga 10 MG 1 tablet Orally Once a day Active Gabapentin 100 MG 1 capsule Orally Onc e a day for 30 day(s) Active Isosorbide Mononitrate ER 30 MG 1 tablet in the morning Orally Once a day for 30 day(s) Active Metoprolol Succinate 50 MG 1 capsule Orally Once a day for 30 day(s) Active metFORMIN HCl ER 500 MG 1 tablet with ev ening meal Orally Once a day for 30 day(s) Active Magnesium Active Vitamin D3 50 MCG (1999) as directed Orally Once a day Active amLODIPine Besylate 5 MG 1 tablet Orally Once a day for 30 day(s) Active Extra Depth Orthopedic Shoes (1 Pair) with Customized Heat Molded Multidensity Innersoles (3 Pair) as directed Dx: NIDDM/Polyneuropathy (E11.42), Hammertoe Foot Deformity (M20.41,M20.42), Preulcerative Skin Lesion(s) (L85.1 05/28/2023 Active Aspirin 81 81 MG 1 tablet Orally Once a day for 30 day(s) Active Extra Depth Orthopedic Shoes (1 Pair) with Customized Heat Molded Multidensity Innersoles (3 Pair) as directed Dx: NIDDM/Polyneuropathy (E11.42), Hammertoe Foot Deformity (M20.41,M20.42), Preulcerative Skin Lesion(s) (L85.1 05/27/2020 Not-Taking Oyster Shell Calcium/D 500-200 MG-UNIT 1 tablet Orally Active Rosuvastatin Calcium 10 MG 1 tablet Orally Once a day for 30 day(s) Active Immunizations Vaccine Route Administration Date Status Comme nts Influenza Unknown 03/29/2020 Administered Influenza Unknown 06/09/2021 Administered Influenza Unknown 05/27/2023 Administered COVID-19 Moderna Vaccine Unknown 12/25/2020 Administered First Dose:12/04 Social History Tobacco Use: Social History Observation [...] Problem Acquired hammer toe of right foot (9789054967289826 ) Other hammer toe(s) (acquired), right foot (M20.41) Active confirmed Problem Acquired hammer toe of left foot (9227609830366776 ) Other hammer toe(s) (acquired), left foot (M20.42) Active confirmed Problem Polyneuropathy due to type 2 diabetes mellitus (635880191) Type 2 diabetes mellitus with diabetic polyneuropathy (E11.42) Active confirmed Problem [id number] Hammer toe of right foot (M20.41) Active confirmed Problem [id number] Neuropathy (G62.9) Active confirmed Problem 55873290 Osteoarthritis o f right ankle and foot (M19.071) Active confirmed Vital Signs Blood pressure diastolic 75 mm Hg 09/13/2024 Height 8of18kw in 09/13/2024 Blood pressure systolic 160 mm Hg 09/13/2024 Weight 235 lbs 09/13/2024 BMI 47.46 kg/m2 09/13/2024 Encounters Encounter Location Date Provider Diagnosis [address] [address] 11/09/2023 Risa Chen Type 2 diabetes mellitus with diabetic polyneuropathy E11.[address] [address] 01/26/2024 Risa Chen Type 2 diabetes mellitus with diabetic polyneuropathy E11.42 ; Neuropathy G62.9 and Neuropathic pain M79.[address] [address] 04/11/2024 Risa Chen Type 2 diabetes mellitus with diabetic polyneuropathy E11.42 and Xerosis of skin L85.[address] [address] 06/30/2024 Risa Chen Type 2 diabetes mellitus with diabetic polyneuropathy E11.42 and Xerosis of skin L85.[address] [address] 09/13/2024 Risa Chen Type 2 diabetes mellitus [...] 06/30/2024 Xerosis of skin (ICD-10 - L85.3) 09/13/2024 Type 2 diabetes mellitus with diabetic polyneuropathy (ICD-10 - E11.42) 09/13/2024 Xerosis of skin (ICD-10 - L85.3) 01/26/2024 Neuropathic pain (ICD-10 - M79.2) 09/13/2024 Other hammer toe(s) (acquired), right foot (ICD-10 - M20.41) Patient Educated with: DIABETIC FOOT CARE INSTRUCTIONS. pdf (DIABETIC FOOT CARE INSTRUCTIONS. pdf) 09/13/2024 Other hammer toe(s) (acquired), left foot (ICD-10 - M20.42) Plan Of Treatment Pending Test Test Name Order Date X ray : Foot, left 3V 12/18/2020 X ray : Foot, right 3V 05/23/2021 X ray : Foot, right 3V 05/27/2020 Next Appt Details Provider Name:Risa singh, 11/28/2024 10:00:00 AM, [address] [place] [address], [id number], Insurance Providers Payer Name Payer Address Payer Phone Subscriber Number Group Number Insured Name Patient Relationship to Insured Coverage Start Date Coverage End Date [facility] [employer] Claims [address] [place] [id number] Karon Howard Self - patient is the insured Medical (General) History Medical History History ICD Code Arthritis asthma type I diabetes Headaches High blood pressure Cataracts Joint implants/screws Cholesterol Surgical History Surgery Date(Month/Year) cataract removal 06/2024
--- OUTSIDE RECORDS SUMMARY | 2024-09-18 08:07 | XMS_ITS ---
Author Organization [facility] Address [address] [facility] [place] [address] Care Team Providers Care Count Team Member Name Role Phone Carmen Santiago Primary Care Provider Unavailab Risa Castellanos Unavailable [phone] Allergies Allergen (clinical drug ingredient) Drug/Non Drug [...] 024 Encounters Encounter Location Date Provider Diagnosis [facility] [address] [address] 06/30/2024 Risa Chen Type 2 diabetes mellitus [...] Reason: Provider Name:Risa singh, 11/28/2024 10:00:00 AM, [address] [place] [address], [id number], Procedure Notes * Category Sub-Category Detail Notes [...] instrumentation by the physician of record - 21351 Nail Reduction Nail Reduction Trimming of dyst rophic nails performed to reduce/remove overall nail length and girth, by manual and electrical means with use of a nail nipper and/or dremel, to more viable healthy nail plate or bed tissue 6-10 (G0127) Progress Notes * Cheri ARELLANOsDOB: [birth year] (69 yo F)Acc No.[id number]:06/30/2024 Progress Note Patient:?Karon ARELLANO Provider:?Risa Chen DPM :1955???Age:69 Y???Sex:Female D ate:06/30/2024 Address:[address] [place] [address], [facility] Pcp:Carmen Santiago Subjective: * Chief Complaints: * [...] instrumentation by the physician of record - 48091.?Nail Reduction:?Nail Reduction?Trimming of dystrophic nails performed to reduce/remove overall nail length and girth, by manual and electrical means with use of a nail nipper and/or dremel, to more viable healthy nail plate or bed tissue 6-10 (G0127).? * Procedure Codes:?G0127 ASHLEIGH ING DYSTROPHIC NAILS ANY #, Modifiers: XS 70564 TRIM SKIN LESIONS, OVER 4, Modifiers: XS [...] Chen, DPM Date:? Generated for Cheryl bundy/Rashard/Pedro on:?09/18/2024 08:06 AM [...]
--- OUTSIDE RECORDS SUMMARY | 2024-09-18 08:07 | XMS_ITS ---
Author Organization [facility] Address [address] [facility] [place] [address] Care Team Providers Care City Superintendent Name Role Phone Carmen Santiago Primary Care Provider Unavailab Risa Castellanos Unavailable [phone] Allergies Allergen (clinical drug ingredient) Drug/Non Drug [...] 024 Encounters Encounter Location Date Provider Diagnosis [facility] [address] [address] 04/11/2024 Risa Chen Type 2 diabetes mellitus [...] Reason: Provider Name:Risa singh, 11/28/2024 10:00:00 AM, [address] [place] [address], [id number], Procedure Notes * Category Sub-Category Detail Notes Keratoma Treatment Parring or Cutting o f Benign Hyperkeratotic Lesion(s) (-57) More than 4 Lesions - The Benign hyperkeratotic lesions, as described above were pared, and/or cut utilizing a sterile 15 blade, tissue nippers, and/or dremel - 04821 Nail Reduction Nail Reduction Trimming of dyst rophic nails performed to reduce/remove overall nail length and girth, by manual and electrical means with use of a nail nipper and/or dremel, to more viable healthy nail plate or bed tissue 6-10 (G0127) Progress Notes * Cheri ARELLANOsDOB: [birth year] (68 yo F)Acc No.[id number]:04/11/2024 Progress Note Patient:?Karon Arellano Provider:?Risa Chen DPM :1955???Age:68 Y???Sex:Female D ate:04/11/2024 Address:[address] [place] [address], [facility], [id number] Pcp:Carmen Santiago Subjective: * Chief Complaints: * [...] 15 blade, tissue nippers, and/or dremel - 72565.?Nail Reduction:?Nail Reduction?Trimming of dystrophic nails performed to reduce/remove overall nail length and girth, by manual and electrical means with use of a nail nipper and/or dremel, to more viable healthy nail plate or bed tissue 6-10 (G0127).? * Procedure Codes:?G0127 ASHLEIGH ING DYSTROPHIC NAILS ANY #, Modifiers: XS 62460 TRIM SKIN LESIONS, OVER 4, Modifiers: XS [...] Chen DPM Date:?07/2023 Generated for Cheryl bundy/Rashard/Pedro on:?09/18/2024 08:06 AM [...]
== END 2024-09-18 08:01 | disposition home or self-care (01) ==
LOC: HO.US 08:00
PROVIDERS: PCP General Practice; Visit Provider Nurse Practitioner Family
DX: N20.0 Calculus of kidney (principal)
CPT/HCPCS: 74018; 76775

== ENCOUNTER → 2024-09-18 08:04 | Outpatient (BNV) | payer OTHER, SELFPAY | PROVIDERS: PCP General Practice; Visit Provider Radiology Diagnostic Radiology | DX: N20.0 Calculus of kidney (principal) | CPT/HCPCS: 74018; 76775 ==

== ENCOUNTER 2024-10-05 09:50 | Outpatient (AMB) | payer OTHER, SELFPAY ==
[2024-10-05 10:17] VITALS: BP 122/60; PULSE 73; O2SAT 97; BMI 47.8
--- NOTE | 2024-10-05 10:17 | A.OFFVIS_ITS ---
Vital Signs 10/05/24 10:17 Height 4 ft 11 in Weight 236 lb 8 oz BMI 47.8 BP 122/60 Blood Pressure Location Rt brachial Position Sitting Pulse 73 Pulse Source Pulse Oximeter Pulse Oximetry (%) 97 Oxygen Delivery Method Room Air Intake Visit Reasons: Follow up Intake Note: Patient presents for follow up TERENCE. Compliance in chart. Electrical And Instrument Technician Services: Electrical And Instrument Technician Offered & Declined Accompanied by: Son Allergies Penicillins [PENICILLINS] Allergy (Intermediate, Verified 10/05/24 10:23) HIVES fluticasone [From Advair Diskus] Allergy (Mild, Verified 10/05/24 10:23) Unknown potassium Allergy (Mild, Verified 10/05/24 10:23) Unknown salmeterol [From Advair Diskus] Allergy (Mild, Verified 10/05/24 10:23) Unknown HPI Comments Details: 69 y/o r. handed female patient presents for follow up of TERENCE on CPAP. Her son Mirna is interpreting for her today. The CPAP compliance and therapy response (07/04/24-10/02/24) reviewed. She is on CPAP at [id number]. The usage days and the avg total usage is 5hours and 38min The AHI was 2.1 She feels refreshed when she uses her CPAP at night, her fatigue has improved. She goes to bed at 11pm at night and wakes up at 5am with no bathroom breaks. She c/o her nose drying out due to the pressures, her pressures are [id number], and tube is heated. We discussed humidity in the room, and using liners for irritation of her face with the plastic mask. Her BP is controlled on 2 meds, she is retaining water in her feet some nights, and has not used her compression stockings lately, but takes furosemide. Her Blood sugars are controlled with Metformin per patient. She washes her mask, changes her filters and fills the reservoir as needed. [facility] Medical History Renal calculi Irritable bowel syndrome Microscopic hematuria Eczema GERD (gastroesophageal reflux disease) Bursitis of heel Achilles tendinitis Juvenile xanthogranuloma Pilar cysts Hypercholesterolemia Kidney stones Osteoarthritis of right knee Osteoarthritis of left knee Hypertension Diabetes mellitus Surgical History History of surgery Hx of total knee arthroplasty (~2017) History of tubal ligation Social History Household Members: None Housing: Apartment Alcohol intake: never Patient Tobacco Use Status: Never used Tobacco Current occupational status: disabled Female Reproductive History Menstrual Age of Menarche: 13 Review of Systems Const All systems reviewed & are unremarkable except as noted in HPI and below Physical Exam Vital Signs: Last Vital Signs Pulse 73 10/05/24 10:17 BP 122/60 10/05/24 10:17 Pulse Ox 97 10/05/24 10:17 Oxygen Delivery Method Room Air 10/05/24 10:17 BMI result Body Mass Index 47.8 Const General: cooperative Nutritional Appearance: obese Orientation/consciousness: patient oriented x3 Limitations: language barrier Eyes Pupils: Equal, round and reactive pupils present Resp Effort & Inspection: normal respiratory effort and able to speak in complete sentences Neuro General: patient oriented x3 and moves all extremities Cranial nerves: Yes Equal, round and reactive pupils present, Yes Normal accom modation reflex present, Yes Normal facial strength present, Yes Midline tongue present, Yes Symmetric palate elevation present, Yes Ability to bilaterally rotate head present and Yes Ability to bilaterally elevate shoulders present Cognition (Neuro): normal cognition Gait exam (Neuro): Other gait observations present (uses a cane to ambulate.) Motor exam (neuro): 5/5 motor strength present throughout Deep tendon reflexes (DTR's): Right triceps reflex intensity grade: 2+, Left triceps reflex intensity grade: 2+, Rt Biceps (C5, C6): 2+, Left biceps reflex intensity grade: 2+, Right brachioradialis reflex intensity grade: 2+, Left brachioradialis reflex intensity grade: 2+, Right patellar reflex intensity grade: 2+ and Left patellar reflex intensity grade: 2+ Psych Appearance: grossly normal Affect: normal affect Attitude: cooperative Results Reviewed Results Reviewed: 09/2024 Findings: Right kidney normal size and echotexture, 10.4 cm length. No hydronephrosis calculus or mass. Normal color flow. Left kidney normal size and echotexture, 12.6 cm length. No hydronephrosis calculus or mass. Normal color flow. Impression: 1. Normal renal ultrasound The CPAP compliance and therapy response (07/04/24-10/02/24) reviewed. She is on CPAP at 85glE9H. The usage days and the avg total usage is 5hours and 38min The AHI was 2.1 Assessment & Plan Assessment & Plan (1) Obesity (BMI 35.0-39.9 without comorbidity): Code(s): E66.9 - Obesity, unspecified Category: Medical (2) Irritable mood: Code(s): R45.4 - Irritability and anger Category: Medical (3) TERENCE (obstructive sleep apnea): Comment: Severe degree of TERENCE with increased severity in REM. The total AHI was 24/hr, REM AHI was 39/hr with oxygen akila was 76% Code(s): G47.33 - Obstructive sleep apnea (adult) (pediatric) Category: Medical (4) Obesity: Code(s): E66.9 - Obesity, unspecified Category: Medical Qualifiers: Obesity type: due to excess calories Obesity classification: adult class 3 (BMI >= 40) Serious obesity comorbidity presence: unspecified whether serious comorbidity present Body mass index: BMI 45.0-49.9 Qualified Code(s): E66.813 - Obesity, class 3; E66.01 - Morbid (severe) obesity due to excess calories; Z68.42 - Body mass index [BMI] 45.0-49.9, adult Plan TERENCE emphasized use of CPAP and getting pressures and temperatures adjusted as needed with RHC. Mood irritable, discussed taking medication as prescribed Edema Blood Pressure, wear compression stockings 2 hours a day at a minimum. Obesity - declines weight mangement today, Blood Sugars A1c monitor and take metformin as prescribed by your PcP. Labs will f/u F/U in 6 months for RLS/ Sleep Patient Instructions: Sleep Hygiene provided: set a scheduled bedtime and wake time to help regulate the circadian rhythm and balance the release of pituitary hormones. Sleep in a dark room, temperatures below 68 degrees, and no devices n bed. Limit caffeinated products 6 hours prior to bed, and limit fluids 2-4 hours prior to bed. Gentle night yoga, diffusing essential oils, and playing soft music can be relaxing. Discussed the importance of weight loss and daily exercise with patient as it is the diet and lifestyle management approach to improvign BP, and A1c. She c/o edema at night and explained the pathophysiology of edema, she is taking furosemide. Agrees to start walking 2 x a week and set goals to weight reduction, with fruits, water, and cutting back on trans-fats, lards, sugars. Coding Level of Care Code Est Pt Level 4 (49782) Diagnoses Obesity (BMI 35.0-39.9 without comorbidity) E66.9 Irritable mood R45.4 TERENCE (obstructive sleep apnea) G47.33 Class 3 severe obesity due to excess calories with body mass index (BMI) of 45.0 to 49.9 in adult, unspecified whether serious comorbidity present E66.813; E66.01; Z68.42 Obesity type: due to excess calories Obesity classification: adult class 3 (BMI >= 40) Serious obesity comorbidity presence: unspecified whether serious comorbidity present Body mass index: BMI 45.0-49.9 Time Spent (min) 30 Comment Improving
--- OUTSIDE RECORDS SUMMARY | 2024-10-05 12:13 | XMS_ITS | Encounter Summary ---
Author Organization [employer] Address [address] [facility] [address] [place] [address] Care Team Providers Care Software Educator Name Role Phone Amina Nieves MD Primary Care Provider [phone] Reason for Visit * Reason Comments Med Refill Encounter Details Date Type Department Care Team ([facility] st Contact Info) Description 06/01/2024 Refill [facility] [address] [place], [place] [phone] Jhoana Worrell DO [address] [place], [place] [phone] Social History Tobacco Use Types Packs/Day Years [...] documented as of this encounter Care Teams Software Educator Relationship Specialty Start Date End Date Amina Nieves MD [address] [place] [address] PCP - General Family Medicine 04/07/21 documented as of this encounter
--- OUTSIDE RECORDS SUMMARY | 2024-10-05 12:13 | XMS_ITS | Encounter Summary ---
Author Organization [employer] Address [address] [place] [address] [address] [place] [address] Care Team Providers Care Replanting Machine Operator Name Role Phone Amina Nieves MD Primary Care Provider [phone] Reason for Visit * Reason Comments Med Refill Encounter Details Date Type Department Care Team ([facility] st Contact Info) Description 01/23/2023 Refill [facility] [address] [place], [place] [phone] Amina Nieves MD [address] [place] [address] Social History Tobacco Use Types Packs/Day Years [...] documented as of this encounter Care Teams Replanting Machine Operator Relationship Specialty Start Date End Date Amina Nieves MD [address] [place] [address] PCP - General Family Medicine 04/07/21 documented as of this encounter
--- OUTSIDE RECORDS SUMMARY | 2024-10-05 12:13 | XMS_ITS | Encounter Summary ---
Author Organization [employer] Address [address] [place] [address] [address] [place] [address] Care Team Providers Care Web Marketing Assistant Name Role Phone Amina Nieves MD Primary Care Provider [phone] Reason for Visit * Reason Comments Med Refill Encounter Details Date Type Department Care Team ([facility] st Contact Info) Description 09/20/2024 Refill [facility] [address] [place], [place] [phone] Amina Nieves MD [address] [place], [place] [phone] Type 2 diabetes mellitus with diabetic neuropathy, unspecified (CMS/HCC); Allergic rhinitis, unspecified seasonality, unspecified trigger Social History Tobacco Use Types Packs/Day Years [...] as of this encounter Visit Diagnoses Diagnosis Type 2 diabetes mellitus with diabetic neuropathy, unspecified ([facility]) Allergic rhinitis, unspecified seasonality, unspecified trigger documented in this encounter Additional Health Concerns Assessment Noted Time PHQ-9 Depression Total Score: 0 09/22/19 24 2:51 PM EDT documented as of this encounter Care Teams Web Marketing Assistant Relationship Specialty Start Date End Date Amina Nieves MD [address] [place] [address] PCP - General Family Medicine 04/07/21 documented as of this encounter
--- OUTSIDE RECORDS SUMMARY | 2024-10-05 12:13 | XMS_ITS | Clinical Summary ---
Demographics Address [address] [place] [address] [address] [place] [address] Work Phone Mobile Phone Home Phone Preferred Language es Marital Status Single Jew Affiliation Unknown Race Other Race Ethnic Group or Author Organization [employer] Address [address] [place] [address] 7t [place] [address] Care Team Providers Care Locker Room Attendant Name Role Phone Amina Nieves MD Primary Care Provider [phone] Allergies Active Allergy Reactions Criticality Noted Date [...] the morning. 90 tablet 3 023 Active Ldvqdif-Tklcwlu-Gw thyl Elvin (Salonpas) 3.1-6-10 % patch APPLY [...] bedtime for wheezing. 75 mL 11 024 Active D3 Super Strength 50 MCG (2000 UT) capsule TAKE 1 CAPSULE BY MOUTH [...] EVERY MORNING 90 tablet 3 024 Active rosuvastatin (Crestor) 10 MG tablet TAKE [...] and at bedtime (pain). 100 g 1 Active meclizine (Antivert) 25 MG tabletIndications: Dizziness TAKE 1 TABLET BY MOUTH THREE TIMES DAILY NEEDED FOR DIZZINESS 60 tablet 3 024 Active TRUEplus Lancets 33G misc TEST BLOOD SUGAR TWICE DAILY 100 each 11 Active FREESTYLE LITE test strip TEST BLOOD SUGAR TWICE DAILY 100 strip 11 Active Ketotifen Fumarate (Eye Itch Relief) 0.035 % solutionIndication s:Allergy, subsequent encounter Administer 1 drop into both eyes 2 times daily. 10 mL 1 024 Active Farxiga 10 MGIndications:Type 2 diabetes mellitus with diabetic neuropathy, without long-term current use of insulin (CMS/HCC) TAKE 1 TABLET BY MOUTH EVERY MORNING 90 tablet 3 024 Active nystatin (Mycostatin) 404194 UNIT/GM powderIndications: Skin candidiasis APPLY TO THE [...] by MD. 60 patch 2 025 Active fluticasone furoate (Arnuity Ellipta) 200 MCG/ACT inhaler INHALE 1 PUFF BY MOUTH EVERY DAY AT THE SAME TIME RINSE MOUTH AFTER USING 30 each 3 025 Active fluticasone (Flonase) 50 MCG/ACT nasal spray INSTILL 1 SPRAY IN EACH NOSTRIL TWICE DAILY 16 g 3 025 Active Aspirin EC Adult Low Dose 81 MG EC tabletIndications: Type 2 diabetes mellitus with diabetic neuropathy, unspecified ([facility]) TAKE 1 TABLET BY MOUTH EVERY MORNING 90 tablet 3 025 Active montelukast (Singulair) 10 MG tabletIndications: Allergic rhinitis, unspecified seasonality, unspecified trigger TAKE 1 TABLET BY MOUTH EVERY MORNING FOR ALLERGIES 90 tablet 3 025 Active montelukast (Singulair) 10 MG tabletIndications: Allergic rhinitis, unspecified seasonality, unspecified trigger Take 1 tablet (10 mg) by mouth in the morning. For allergies 90 tablet 3 024 2024 Discontinued(R eorder (will not trigger notification to Pharmacy)) aspirin (Aspirin Low Dose) 81 MG EC tabletIndications: Type 2 diabetes mellitus with diabetic neuropathy, unspecified (CMS/[facility]) TAKE 1 TABLET BY MOUTH EVERY MORNING 90 tablet 3 024 2024 Discontinued fluticasone (Flonase) 50 MCG/ACT nasal spray INHALE 1 SPRAY IN EACH NOSTRIL TWICE DAILY 16 g 3 024 2024 Discontinued fluticasone furoate (Arnuity Ellipta) 200 MCG/ACT inhaler INHALE 1 PUFF BY MOUTH ONCE DAILY. RINSE MOUTH AFTER USING. DO NOT SWALLOW 30 each 3 024 2024 Discontinued Active Problems Problem Noted Date Diagnosed Date Endometrial cancer 12/20/2023 Assessment & Plan (12/23/2023 2:30 PM EDT): [facility] tower director/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 Ying 01/2023 - referred to Room Manager Onc by Dr. Ying with Dr. Rodriguez at [facility] tower director Oncology on 01/14/2023 at 10:00. -CT scan [...] Encounters Date Type Department Care Team Description 09/20/2024 Refill [facility] MEDICINE [address] [place] [phone] Amina Nieves MD Type 2 diabetes mellitus with diabetic neuropathy, unspecified ([facility]); Allergic rhinitis, unspecified seasonality, unspecified trigger 09/20/2024 Refill [facility] WALK-IN CENTER [address] [place] [phone] Kapil Blackman MD Allergic rhinitis, unspecified seasonality, unspecified trigger 09/18/2024 Orders Only [facility] External Provider, [facility] 09/15/2024 Refill [facility] WALK-IN CENTER [address] [place] [phone] Amina Nieves MD 08/16/2024 8:40 AM EST Office Visit [facility] WALK-IN [address] [address] Pat Carson NP Acute nonintractable headache, unspecified headache type (Primary Dx); Neck pain, musculoskeletal 07/20/2024 Refill [facility] CHC MED & PEDS [address] [facility] [place] [address] Name, MD Barbara Santos 07/07/2024 Orders Only GENERIC EXTERNAL DATA DEPARTMENT [...] Colorectal Cancer Screening 10/17/2024 Mammogram 12/21/2024 12/22/2023, 10/11, 05/21/2021, Additional history exists Diabetes: Foot Exam 05/25/2025 05/25/2024, 12/18/2022, 12/18/2022 Diabetes: Urine Protein Screening 05/25/2025 05/25/2024, 06/23/2022, 03/19/2022, Additional history exists Lipid Panel 05/25/2025 05/25/2024, 12/02/2023, 06/23/2022, Additional history exists Tobacco Screening 08/16/2025 [...] Name Priority Date/Time Associated Diagnosis Comments US RENAL BI Routine 09/18/2024 9:40 AM EDT XR KUB AND UPRIGHT 2 VIEWS Routine 09/18/2024 8:04 AM EDT US ABDOMEN BECK W ELASTOGRAPHY Routine 07/25/2024 [...] neuropathy, without long-term current use of insulin ([facility]/HCC) BI MAMMOGRAM SCREENING TOMOSYNTHESIS BILATERAL Routine 12/22/2023 10:05 AM EDT Screening mammogram for breast cancer HM COLONOSCOPY Routine 10/18/2019 from Last 3 Months or Most Recently Relevant to Health Maintenance Results * US RENAL BI (09/18/2024 9:40 AM EDT) Anatomical Region Laterality Modality Abdomen Ultrasound 09/18/2024 9:40 AM EDT Narrative 09/18/2024 9:42 AM EDT ? [facility] ?[address] ?[place] [address] ? Ultrasound Report ? Signed ? Patient: Karon Nur ?MR#: ?? [id number] ? : 1955 ?Acct:[id number] ? Age/Sex: 69 / F ?ADM Date: 09/18/24 ? Loc: HO.US ? Attending Dr: Lauren LOPES ? Ordering Physician: Lauren Summers ?? Date of Service: 09/18/24 ?? Procedure(s): US renal BI ?? Accession Number(s): [id number] ? cc: Amina Nieves; Lauren Summers ? CLINICAL HISTORY: N20.0 - Calculus of kidney ? US renal with Color Doppler ? Comparison: US/SR - US RENAL BI - 03/14/24 09:18 EDT ? Findings: ?? Right kidney normal size and echotexture, 10.4 cm length. No ?? hydronephrosis calculus or mass. Normal color flow. ?? Left kidney normal size and echotexture, 12.6 cm length. No hydronephrosis ?? calculus or mass. Normal color flow. ? Impression: ?? 1. Normal renal ultrasound ? This document has been electronically signed by: Jose Lee MD on ?? 09/18/2024 09:40:20 ? Dictated By: ?Jose Lee MD ? Signed By: ?<Electronically signed by Jose Lee MD in OV> ?09/18/24 0941 ? DD/ 0940 ? TD/TT: 09/18/24939 ? Head Of Measurement & Insights: ? Procedure Note Donamaya, Image - 09/18/2024 [place] [address] Ultrasound Report Signed Patient: Ron Nur#: [id number] : 1955cct:[id number] Age/Sex: 69 / FADM Date: 09/18/24 Loc: HO.US Attending Dr: Lauren LOPES Ordering Physician: Lauren Summers Date of Service: 09/18/24 Procedure(s): US renal BI Accession Number(s): [id number] cc: Amina Nieves; Lauren Summers CLINICAL HISTORY: N20.0 - Calculus of kidney US renal with Color Doppler Comparison: US/SR - US RENAL BI - 03/14/24 09:18 EDT Findings: Right kidney normal size and echotexture, 10.4 cm length. No hydronephrosis calculus or mass. Normal color flow. Left kidney normal size and echotexture, 12.6 cm length. No hydronephrosis calculus or mass. Normal color flow. Impression: 1. Normal renal ultrasound This document has been electronically signed by: Jose Lee MD on 09/18/2024 09:40:20 Dictated By: Jose Lee MD Signed By: <Electronically signed by Jose Lee MD in OV> 09/18/24940 DD/ 9 TD/TT: 09/18/24939 Head Of Measurement & Insights: us [facility] External Provider IMG US PROCEDURES Edited Result - Final * XR KUB and Upright 2 Views (09/18/2024 8:04 AM EDT) Anatomical Region Laterality Modality Radiographic Jannette ging 09/18/2024 8:04 AM EDT Narrative 09/19/2024 8:49 AM EDT ? [facility] ?[address] ?[place] [address] ?XRay Report ? Signed ? Patient: Adan River,Karon ?MR#: ?? [id number] ? : 1955 ?Acct:[id number] ? Age/Sex: 69 / F ?ADM Date: 09/18/24 ? Loc: HO.US ? Attending Dr: Lauren LOPES ? Ordering Physician: Lauren Summers ?? Date of Service: 09/18/24 ?? Procedure(s): XR KUB ?? Accession Number(s): [id number] ? cc: Amina Nieves; Lauren Summers ? EXAMINATION: ??XR ABDOMEN 1 VIEW (KUB) ? HISTORY: N20.0 - Calculus of kidney ? COMPARISON: Comparison is made with the prior examination dated ?? 09/17/2023. ? FINDINGS: ??Two supine views of the abdomen are submitted. ?? The bowel ?? gas pattern is unremarkable, without evidence of mechanical ?? obstruction. ?? There are vascular calcifications in the left upper ?? quadrant and pelvis. No abnormal calcifications overlie the renal ?? shadows. ?? There are no abnormal soft tissue masses. ??There is ?? degenerative disc disease of the spine. ? XR/XR KUB ?? IMPRESSION: ?? No suspicious calcifications are identified. ? Electronically signed by: ??Celso Dumas MD ??09/19/2024 08:46 AM EDT ? Dictated By: ?Celso Dumas MD ? Signed By: ?<Electronically signed by Celso Dumas MD in OV> ?09/19/24 0846 ? DD/ 0804 ? TD/TT: 09/18/24 0824 ? Head Of Measurement & Insights: ? Procedure Note Forrest Salter - 09/19/2024 [place] [address] [place] [address] XRay Report Signed Patient: Ron Nur#: [id number] : 1955cct:[id number] Age/Sex: 69 / FADM Date: 09/18/24 Loc: HO.US Attending Dr: Lauren LOPES Ordering Physician: Lauren Summers Date of Service: 09/18/24 Procedure(s): XR KUB Accession Number(s): [id number] cc: Amina Nieves; Lauren Summers EXAMINATION: XR ABDOMEN 1 VIEW (KUB) HISTORY: N20.0 - Calculus of kidney COMPARISON: Comparison is made with the prior examination dated 09/17/2023. FINDINGS: Two supine views of the abdomen are submitted. The bowel gas pattern is unremarkable, without evidence of mechanical obstruction. There are vascular calcifications in the left upper quadrant and pelvis. No abnormal calcifications overlie the renal shadows. There are no abnormal soft tissue masses. There is degenerative disc disease of the spine. XR/XR KUB IMPRESSION: No suspicious calcifications are identified. Electronically signed by: Celso Dumas MD 09/19/2024 08:46 AM EDT Dictated By: Celso Dumas MD Signed By: <Electronically signed by Celso Duams MD in OV> 09/19/24 0846 DD/ 0804 TD/TT: 09/18/24 0824 Head Of Measurement & Insights: [facility] External Provider IMG XR PROCEDURES Final Result * US ABDOMEN BECK W ELASTOGRAPHY (07/25/2024 7:25 AM EST) Anatomical Region Laterality Modality Abdomen Ultrasound 07/25/2024 7:25 AM EST Narrative 07/25/2024 3:23 PM EST ? [facility] ?[address] ?[place] [address] ? Ultrasound Report ? Signed ? Patient: Adan River,Karon ?MR#: ?? [id number] ? : 1955 ?Acct:[id number] ? Age/Sex: 69 / F ?ADM Date: 01/14/25 ? Loc: HO.US ? Attending Dr: Luisana LOPES ? Ordering Physician: Luisana Lou ?? Date of Service: 07/25/24 ?? Procedure(s): US abdomen beck w elastography ?? Accession Number(s): [id number] ? cc: Amina Nieves; Luisana Lou ? [...] MD in OV> ?07/25/24 1520 ? DD/ 4 ? TD/TT: 07/25/24 0744 ? Head Of Measurement & Insights: ? Procedure Note Donelenachristinadiliater, Image - 07/25/[address] [address] Ultrasound Report Signed Patient: Ron Nur#: [id number] : 1955cct:[id number] Age/Sex: 69 / FADM Date: 07/25/24 Loc: HO.US Attending Dr: Luisana LOPES Ordering Physician: Luisana Lou Date of Service: 07/25/24 Procedure(s): US abdomen beck w elastography Accession Number(s): [id number] cc: Amina Nieves; Luisana Lou EXAMINATION: US ABDOMEN LIMITED WITH LIVER [...] 07/25/24 1520 DD/ 0725 TD/TT: 07/25/24 0744 Head Of Measurement & Insights: us [facility] External Provider IMG US PROCEDURES Final Result * VITAMIN D 25-OH (D2 AND D3) (07/07/2024 8:10 AM EST) Vitamin D, 25-OH, D2 <4 ng/mL [facility] Comment:This test was develo ped and its analytical performancecharacteristics have been determined by [employer] [place], [place]. It hasnot been cleared or approved by the U.S. Food and DrugAdministration. This assay has been validated pursuantto the CLIA regulations and is used for clinicalpurposes.THIS TEST WAS PERFORMED AT:[employer] [id number] [place] [address]VSWKMCS W. MASON,MD,PHD Vitamin D, 25-OH, D3 51 ng/mL [facility] Comment:This test was develo ped and its analytical performancecharacteristics have been determined by [employer] [place], [place]. It hasnot been cleared or approved by the U.S. Food and DrugAdministration. This assay has been validated pursuantto the CLIA regulations and is used for clinicalpurposes. Vitamin D, 25-OH, Total 51 30 - 100 ng/mL [facility] Comment:Vitamin D, 25-Hydrox y reports concentrations [...] = 30 ng/mL.For additional information, please refer tohttp://education.[employer]/faq/FGU954(This link is being provided for informational/educational purposes only.) 07/07/2024 8:10 AM EST 07/07/2024 8:10 AM EST Generic External Data Provider LAB BLOOD ORDERAB LES Final Result Performing Organization Address [facility] Co de Phone Number [facility] [address] [place] [phone] * (ABNORMAL) Vitamin B12 (Cobalamin) and Folate Panel, Serum (07/07/2024 8:10 AM EST) Vitamin B12 193(L) 200 - 900 pg/mL [facility] Comment:NORMAL 200-900 PG/ML INDETERMINATE 160-199 PG/ML DEFICIENT < 160 PG/ML Folate 9.2 > or = 4.0 ng/mL [facility] Comment:Reference Values:> o r = 4.0 ng/mL< 4.0 ng/mL suggests folate deficiency Methotrexate, aminopterin and folinic acid(leucovorin) are chemotherapeutic agents whose molecularstructures are similar to folate; therefore, the Architectfolate assay cannot be used for patients using these drugs. 07/07/2024 8:10 AM EST 07/07/2024 8:10 AM EST Generic External Data Provider LAB BLOOD ORDERAB LES Final Result Performing Organization Address [facility] Co de Phone Number [facility] [address] [place] [phone] * Lipase (07/07/2024 8:10 AM EST) Pathologist [facility] Lipase 40 8 - 78 U/L [facility] 07/07/2024 8:10 AM EST 07/07/2024 8:10 AM EST Generic External Data Provider LAB BLOOD ORDERAB LES Final Result Performing Organization Address [facility] Co de Phone Number [facility] [address] [place] [phone] * Albumin, Random Urine W/Creatinine (05/25/2024 9:46 AM EST) Creatinine, Urine 85.32 mg/dL [facility] Microalbumin Urine 23.0 mg/L [facility] Microalbum Creatinine Ratio Ur 26.9 <30 ug/mg cr [facility] Comment:Albumin/Creatinine R atio Reference Ranges: Normal: < 30 ug/mg creatinine Microalbuminuria: 30 - 300 ug/mg creatinineClinical Albuminuria: > 300 ug/mg creatinine Urine (Urine, Random) 05/25/2024 9:46 AM EST 05/25/2024 11:28 AM EST us Amina Nieves MD LAB URINE ORDERABLES Final Res ult Performing Organization Address [facility] Phone Number [facility] [address] [place] [phone] * Hepatitis C Antibody with Reflex to HCV, RNA, Quantitative, Real-Time PCR (05/25/2024 9:46 AM EST) Hepatitis C Antibody Nonreactive Nonreactive [facility] Comment:Antibodies to HCV no t detected; does not exclude early acuteHCV infection. Blood Venous blood specimen / Unknown 05/25/2024 9:46 AM EST 05/25/2024 10:53 AM EST us Amina Nieves MD LAB BLOOD ORDERABLES Final Res ult Performing Organization Address [facility] Co de Phone Number [facility] [address] [place] [phone] * (ABNORMAL) Lipid Panel, Standard (05/25/2024 9:46 AM EST) Triglycerides 266(H) <150 mg/dL [facility] Comment:Desirable Triglyceri de: less than 150 mg/dLBorderline High Triglyceride 150-199 mg/dLHigh Triglyceride: 200-499 mg/dLVery High Triglyceride: greater than or equal to 5OO mg/dL Cholesterol 210(H) <200 mg/dL [facility] Comment:Desirable Cholestero l: less than 200 mg/dLBorderline High Cholesterol: 200-239 mg/dLHigh Cholesterol: greater than 239 mg/dL LDL Cholesterol Calculated 116(H) <100 mg/dL [facility] Comment:Desirable LDL: less than 100 mg/dLNear Optimal/Above Optimal LDL: 110- 129 mg/dLBorderline High LDL: 130-159 mg/dLHigh LDL: 160-189 mg/dLVery High LDL: greater than or equal to 190 mg/dL HDL Cholesterol 41 >40 mg/dL [facility] Comment:Desirable HDL: great er than 40 mg/dL Note: This HDL assay may give artificially low results in patients with liver disease. Blood Venous blood specimen / Unknown 05/25/2024 9:46 AM EST 05/25/2024 10:53 AM EST Amina Nieves MD LAB BLOOD ORDERABLES Final Res ult [facility] [address] [place] [phone] * (ABNORMAL) POCT A1C (05/25/2024 8:57 AM EST) Hemoglobin A1C 9.7(A) 4.0 - 6.0 % QC Media Lot # [id number] Lot# Expiration Date [id number] Blood 05/25/2024 8:57 AM EST Amina Nieves MD POINT OF CARE TEST ENTER/EDIT ORDERABLES Final Result * BI Mammogram Screening Tomosynthesis Bilateral (12/22/2023 10:05 AM EDT) Anatomical Region Laterality Modality Breast Bilateral Mammography 12/22/2023 10:0 5 AM EDT Narrative 01/20/2024 9:58 AM EDT ? [facility] ? [address] ?[place] [address] ? Mammography Report ? Signed ? Patient: Karon Nur ?MR#: ?? [id number] ? : 1955 ?Acct:[id number] ? Age/Sex: 68 / F ?ADM Date: 12/22/23 ? Loc: HO.MAMMO ? Attending Dr: Amina Nieves MD ? Ordering Physician: Amina Nieves ?Results: 1Negative ? Date of Service: 12/22/23 ?Follow Up: 1 Year From Orig ?? inal Mammogram ? Procedure(s): MM tomosynthesis screening BI ?? Accession Number(s): [id number] ? cc: Amina Nieves ? EXAMINATION: ?? [...] 0954 ? DD/ 1005 ? TD/TT: ? Head Of Measurement & Insights: ? Procedure Note Gaetano, Image - 01/20/2024 [facility] [address] [place] [address] Mammography Report Signed Patient: Ron Nur#: [id number] : 3Acct:[id number] Age/Sex: 68 / FADM Date: 12/22/23 Loc: KAROLO Attending Dr: Amina Nieves MD Ordering Physician: Nicole Nievesults: 1Negative Date of Service: 12/22/23Follow Up: 1 Year From Orig inal Mammogram Procedure(s): MM tomosynthesis screening BI Accession Number(s): [id number] cc: Amina Nieves EXAMINATION: MM SCREENING DIGITAL [...] in OV> 01/20/24 0954 DD/ 1005 TD/TT: Head Of Measurement & Insights: Amina Nieves MD IMG BI PROCEDURES Final Result * (ABNORMAL) Colonoscopy (10/18/2019) Colonoscopy Abnormal(A ) Normal Historical Provider HEALTH MAINTENANCE Edited Result - Final from Last 3 Months or Most Recently Relevant to Health Maintenance Insurance * Guarantor: Karon Nur Account Type Relation to Patient Date of Phone Billing Address Personal/Family Self 1955 [address] [place] [address] [facility] * Guarantor: Karon Nur Account Type Relation to Patient Date of Phone Billing Address Personal/Family Self [address] [place] [address] * Guarantor: Karon Nur Account Type Relation to Patient Date of Phone Billing Address Personal/Family Self [address] [place] [address] * Guarantor: Karon Nur Account Type Relation to Patient Date of Phone Billing Address Personal/Family Self [address] [place] [address] Care Teams Locker Room Attendant Relationship Specialty Start Date End Date Amina Nieves MD [address] [place] [address] [place] [address] PCP - General Family Medicine 04/07/21
--- OUTSIDE RECORDS SUMMARY | 2024-10-05 12:13 | XMS_ITS | Encounter Summary ---
Author Organization [employer] Address [address] [place] [address] Care Team Providers Care Licensed Physical Therapy Assistant Name Role Phone Amina Nieves MD Primary Care Provider [phone] Encounter Details Date Type Department Care Team (Late st Contact Info) Description 01/26/2024 Orders Only [facility] MEDICINE [address] [place], [place] [phone] Amina Nieves MD [address] [place], [place] [phone] Social History Tobacco Use Types Packs/Day Years [...] documented as of this encounter Care Teams Licensed Physical Therapy Assistant Relationship Specialty Start Date End Date Amina Nieves MD [address] [place] [phone] PCP - General Family Medicine 04/07/21 documented as of this encounter
--- OUTSIDE RECORDS SUMMARY | 2024-10-05 12:14 | XMS_ITS | Encounter Summary ---
Demographics Address [address] [place] [address] Work Phone Mobile Phone Home Phone Preferred Language es Marital Status Single Zoroastrianism Affiliation Unknown Race Other Race Ethnic Group or Author Organization [employer] Address [address] [facility] 7t [place] [address] Care Team Providers Care Edge Plugger Name Role Phone Amina Nieves MD Primary Care Provider [phone] Encounter Details Date Type Department Care Team (Late st Contact Info) Description 09/18/2024 Orders Only [facility] External Provider, [facility] Social History Tobacco Use Types Packs/Day Years [...] on file documented as of this encounter Procedures Procedure Name Priority Date/Time Associated Diagnosis Comments US RENAL BI Routine 09/18/2024 9:40 AM EDT XR KUB AND UPRIGHT 2 VIEWS Routine 09/18/2024 8:04 AM EDT documented in this encounter Results * US RENAL BI (09/18/2024 9:40 AM EDT) Anatomical Region Laterality Modality Abdomen Ultrasound 09/18/2024 9:40 AM EDT Narrative 09/18/2024 9:42 AM EDT ? [facility] ?[address] ?[place] [address] ? Ultrasound Report ? Signed ? Patient: Marquise Nurdys ?MR#: ?? [id number] ? : 1955 ?Acct:[id number] ? Age/Sex: 69 / F ?ADM Date: 09/18/24 ? Loc: HO.US ? Attending Dr: Lauren LOPES ? Ordering Physician: Lauren Summers ?? Date of Service: 09/18/24 ?? Procedure(s): US renal BI ?? Accession Number(s): [id number] ? cc: Amina Nieves; Summers,Lauren DRY MILL OPERATOR-BC ? CLINICAL HISTORY: N20.0 - Calculus of [...] ? DD/ 0940 ? TD/TT: 09/18/24939 ? Equity Research Analyst: ? Procedure Note Donrussellter, Image - 09/18/2024 [place] [address] Ultrasound Report Signed Patient: Ron Nur#: [id number] : 1955cct:[id number] Age/Sex: 69 / FADM Date: 09/18/24 Loc: HO.US Attending Dr: Lauren TAYLOR Ordering Physician: Lauren Summers Date of Service: 09/18/24 Procedure(s): US renal BI Accession Number(s): [id number] cc: Amina Nieves; Lauren Summers CLINICAL HISTORY: [...] in OV> 09/18/24940 DD/ 9 TD/TT: 09/18/24939 Equity Research Analyst: us [facility] External Provider IMG US PROCEDURES Edited Result - Final * XR KUB and Upright 2 Views (09/18/2024 8:04 AM EDT) Anatomical Region Laterality Modality Radiographic Jannette ging 09/18/2024 8:04 AM EDT Narrative 09/19/2024 8:49 AM EDT ? [facility] ?[address] ?[place] [address] ?XRay Report ? Signed ? Patient: Karon Nur ?MR#: ?? [id number] ? : 1955 ?Acct:[id number] ? Age/Sex: 69 / F ?ADM Date: 09/18/24 ? Loc: HO.US ? Attending Dr: Lauren LOPES ? Ordering Physician: Lauren Summers ?? Date of Service: 09/18/24 ?? Procedure(s): XR KUB ?? Accession Number(s): [id number] ? cc: Amina Nieves; Lauren Summers ? [...] ??Celso Dumas MD ??09/19/2024 08:46 AM EDT ?? RP ? Dictated By: ?Celso Dumas MD ? Signed By: ?<Electronically signed by Celso Dumas MD in OV> ?09/19/24 0846 ? DD/ 0804 ? TD/TT: 09/18/24 0824 ? Equity Research Analyst: ? Procedure Note Gaetano, Image - 09/19/2024 [facility] [address] [place] [address] XRay Report Signed Patient: Ron Nur#: [id number] : 1955cct:[id number] Age/Sex: 69 / FADM Date: 09/18/24 Loc: HO. Attending Dr: Lauren TAYLOR Ordering Physician: Lauren Summers Date of Service: 09/18/24 Procedure(s): XR KUB Accession Number(s): [id number] cc: Amina Nieves; Lauren Summers EXAMINATION: XR [...] signed by Celso Dumas MD in OV> 09/19/24 0846 DD/ 0804 TD/TT: 09/18/24 0824 Equity Research Analyst: [facility] External Provider IMG XR PROCEDURES Final Result documented in this encounter Visit Diagnoses Not on filedocumented in this encounter Additional Health Concerns Assessment Noted Time PHQ-9 Depression Total Score: 0 09/22/19 24 2:51 PM EDT documented as of this encounter Care Teams Edge Plugger Relationship Specialty Start Date End Date Amina Nieves MD [address] [place] [address] PCP - General Family Medicine 04/07/21 documented as of this encounter
--- OUTSIDE RECORDS SUMMARY | 2024-10-05 12:14 | XMS_ITS | Encounter Summary ---
Author Organization [employer] Address [address] [facility] 7t [place] [address] Care Team Providers Care Central Office Frame Wirer Name Role Phone Amina Nieves MD Primary Care Provider [phone] Reason for Visit * Reason Comments Med Refill Encounter Details Date Type Department Care Team ([facility] st Contact Info) Description 09/20/[address] [facility] [address] [place], [place] [phone] Kapil Blackman MD [address] [place], [place] [phone] Allergic rhinitis, unspecified seasonality, unspecified trigger Social [...] is your housing situation today? I have timmeena rao 04/29/[address] you [...] as of this encounter Visit Diagnoses Diagnosis Allergic rhinitis, unspecified seasonality, unspecified trigger documented in this encounter Additional Health Concerns Assessment Noted Time PHQ-9 Depression Total Score: 0 09/22/19 24 2:51 PM EDT documented as of this encounter Care Teams Central Office Frame Wirer Relationship Specialty Start Date End Date Amina Nieves MD [address] [place] [address] PCP - General Family Medicine 04/07/21 documented as of this encounter
--- OUTSIDE RECORDS SUMMARY | 2024-10-05 12:14 | XMS_ITS | Encounter Summary ---
Author Organization [employer] Address [address] [place] [address] 7t [place] [address] Care Team Providers Care Electron Beam Photo Mask Maker Name Role Phone Amina Nieves MD Primary Care Provider [phone] Encounter Details Date Type Department Care Team (Late st Contact Info) Description 10/27/2022 Orders Only [facility] [address] [place], [place] [phone] Amina Nieves MD [address] [place], [place] [phone] Vaginal bleeding (Primary Dx); Endometrial thickening on [...] documented as of this encounter Care Teams Electron Beam Photo Mask Maker Relationship Specialty Start Date End Date Amina Nieevs MD [address] [place] [address] PCP - General Family Medicine 04/07/21 documented as of this encounter
--- OUTSIDE RECORDS SUMMARY | 2024-10-05 12:14 | XMS_ITS | Encounter Summary ---
Author Organization [employer] Address [address] [facility] 7t [place] [address] Care Team Providers Care Production Generalist Name Role Phone Amina Nieves MD Primary Care Provider [phone] Reason for Visit * Reason Comments Med Refill Encounter Details Date Type Department Care Team ([facility] st Contact Info) Description 09/15/2024 Refill [facility] [address] [place], [place] [phone] Amina Nieves MD [address] [place], [place] [phone] Social History Tobacco Use Types Packs/Day Years [...] documented as of this encounter Care Teams Production Generalist Relationship Specialty Start Date End Date Amina Nieves MD [address] [place] [address] PCP - General Family Medicine 04/07/21 documented as of this encounter
--- OUTSIDE RECORDS SUMMARY | 2024-10-05 12:14 | XMS_ITS | Encounter Summary ---
Author Organization [employer] Address [address] [place] [address] 7t [place] [address] Care Team Providers Care Feeder Operator Automatic Name Role Phone Amina Nieves MD Primary Care Provider [phone] Reason for Visit * Reason Comments Med Refill Encounter Details Date Type Department Care Team ([facility] st Contact Info) Description 05/07/2023 Refill [facility] [address] [place], [place] [phone] Amina Nieves MD [address] [place], [place] [phone] Rash Social History Tobacco Use Types Packs/Day [...] documented as of this encounter Care Teams Feeder Operator Automatic Relationship Specialty Start Date End Date Amina Nieves MD [address] [place] [address] PCP - General Family Medicine 04/07/21 documented as of this encounter
== END 2024-10-05 11:09 | disposition home or self-care (01) ==
LOC: HO.HSMS 09:51
PROVIDERS: Absent Provider Physician Assistant Medical; PCP General Practice; Visit Provider Physician Assistant Medical
DX: E66.9 Obesity, unspecified (principal); R45.4 Irritability and anger; G47.33 Obstructive sleep apnea (adult) (pediatric); E66.813 Obesity, class 3; E66.01 Morbid (severe) obesity due to excess calories; Z68.42 Body mass index [BMI] 45.0-49.9, adult
CPT/HCPCS: 99214

== ENCOUNTER → 2024-10-05 09:50 | Outpatient (BNVA) | payer OTHER, SELFPAY | PROVIDERS: Absent Provider Physician Assistant Medical; PCP General Practice; Visit Provider Physician Assistant Medical | DX: G47.33 Obstructive sleep apnea (adult) (pediatric) (principal); E66.813 Obesity, class 3; E66.01 Morbid (severe) obesity due to excess calories; R45.4 Irritability and anger; Z68.42 Body mass index [BMI] 45.0-49.9, adult | CPT/HCPCS: 99212 ==

== ENCOUNTER 2024-10-10 07:42 | Outpatient (REF) | payer OTHER, SELFPAY ==
--- OUTSIDE RECORDS SUMMARY | 2024-10-10 07:47 | XMS_ITS | Patient Health Record ---
Author Organization [facility] Address [address] [facility] [place] [address] Care Team Providers Care Signal Fitter Name Role Phone Carmen Santiago Primary Care Provider UnavailRisa Toussaint Unavailable [phone] Allergies Allergen (clinical drug ingredient) Drug/Non Drug Allergy documented on EMR Reaction Allergy Type Onset Date Status amoxicillin Amoxicillin Unknown Drug Allergy Act prath Penicillin Unknown Drug Allergy Active Reason For [...] Immunizations Vaccine Route Administration Date Status Comme [facility] COVID-19 Moderna Vaccine Unknown 12/25/2020 Administered First [...] Problem Acquired hammer toe of right foot (2916103749003267 ) Other hammer toe(s) (acquired), right foot (M20.41) Active confirmed Problem Acquired hammer toe of left foot (5091061093281426 ) Other hammer toe(s) (acquired), left foot (M20.42) Active confirmed Problem Polyneuropathy due to type 2 diabetes mellitus (502690371) Type 2 diabetes mellitus with diabetic polyneuropathy (E11.42) Active confirmed Problem 325907289 Hammer toe of right foot (M20.41) Active confirmed Problem 891140453 Neuropathy (G62.9) Active confirmed Problem 08235487 Osteoarthritis o f right ankle and foot (M19.071) Active confirmed Vital Signs Blood pressure diastolic 75 mm Hg 09/13/2024 Height 2gh54fu in 09/13/2024 Blood pressure systolic 160 mm Hg 09/13/2024 Weight 235 lbs 09/13/2024 BMI 47.46 kg/m2 09/13/2024 Encounters Encounter Location Date Provider Diagnosis [address] [address] 11/09/2023 Risa Chen Type 2 diabetes mellitus with diabetic polyneuropathy E11.[address] [address] 01/26/2024 Risa Chen Type 2 diabetes mellitus with diabetic polyneuropathy E11.42 ; Neuropathy G62.9 and Neuropathic pain M79.[address] [address] 04/11/2024 Risa Chen Type 2 diabetes mellitus with diabetic polyneuropathy E11.42 and Xerosis of skin L85.[address] [address] 06/30/2024 Risa Chen Type 2 diabetes mellitus with diabetic polyneuropathy E11.42 and Xerosis of skin L85.[address] [address] 09/13/2024 Risa Chen Type 2 diabetes mellitus [...] Details Provider Name:Risa singh, 11/28/2024 10:00:00 AM, [address] [place] [address], [phone], Insurance Providers Payer Name Payer Address Payer Phone Subscriber Number Group Number Insured Name Patient Relationship to Insured Coverage Start Date Coverage End Date [facility] [employer] Claims [address] [place] [id number] Karon Howard Self - patient is the insured Medical (General) History Medical History History ICD Code Arthritis asthma type I diabetes Headaches High blood pressure Cataracts Joint implants/screws Cholesterol Surgical History Surgery Date(Month/Year) cataract removal 06/2024
--- OUTSIDE RECORDS SUMMARY | 2024-10-10 07:47 | XMS_ITS ---
Author Organization [facility] Address [address] [facility] [place] [address] Care Team Providers Care General Foreman Name Role Phone Carmen Santiago Primary Care Provider Unavailab Risa Castellanos Unavailable [phone] Allergies Allergen (clinical drug ingredient) Drug/Non Drug [...] other tobacco user? No Vital Signs Height 9vc63gq in 09/13/2024 Weight 235 lbs 09/13/2024 BMI 47.46 kg/m2 09/13/2024 Blood pressure systolic 160 mm Hg 09/14/19 25 Blood pressure diastolic 75 mm Hg 025 Encounters Encounter Location Date Provider Diagnosis [facility] [place] [address] [place] [address] 09/13/2024 Risa Chen Type 2 diabetes mellitus [...] Reason: Provider Name:Risa singh, 11/28/2024 10:00:00 AM, [address] [place] [address], [phone], Procedure Notes * Category Sub-Category Detail Notes [...] instrumentation by the physician of record - 05844 Nail Reduction Nail Reduction (-27) Trimming o [...] * Cheri ARELLANOsDOB: [birth year] (69 yo F)Acc No.[id number]:09/13/2024 Progress Note Patient:?ALEKSEY Karon Provider:?Risa Chen DPM :1955???Age:69 Y???Sex:Female D ate:09/13/2024 Address:[address] [place], [place] [id number] Pcp:Carmen Santiago Subjective: * Chief Complaints: * [...] * Allergies:?Leonid adrian[Allergies Verified] Objective: * Vitals:?Ht: 7xn48tg, Wt:235, BMI:47.46, Shoe size: 8, BP:160/75mm Hg, [...] instrumentation by the physician of record - 96226.?Nail Reduction:?Nail Reduction?(-27) Trimming of all dystrophic nails [...] ING DYSTROPHIC NAILS ANY #, Modifiers: XS 38246 TRIM SKIN LESIONS, OVER 4, Modifiers: XS [...] Chen DPM Date:?11/2024 Generated for Cheryl bundy/Rashard/Pedro on:?10/10/2024 07:47 AM EDT History and Physical Notes * [...] stocking fashion, no fissure(s) present, B/L Orthopedic FOOTWEAR EVALUATION: worn, non-s upportive, shoe gear properties exacerbate patient's foot/toe deformity [...]
--- OUTSIDE RECORDS SUMMARY | 2024-10-10 07:47 | XMS_ITS ---
Author Organization [facility] Address [address] [place] [address] Care Team Providers Care Molder Meat Name Role Phone Carmen Santiago Primary Care Provider Unavailab Risa Castellanos Unavailable [phone] Allergies Allergen (clinical drug ingredient) Drug/Non Drug [...] 024 Encounters Encounter Location Date Provider Diagnosis [facility] [address] [address] 06/30/2024 Risa Chen Type 2 diabetes mellitus [...] Reason: Provider Name:Risa singh, 11/28/2024 10:00:00 AM, [address] [place] [address], [phone], Procedure Notes * Category Sub-Category Detail Notes [...] instrumentation by the physician of record - 49464 Nail Reduction Nail Reduction Trimming of dyst rophic nails performed to reduce/remove overall nail length and girth, by manual and electrical means with use of a nail nipper and/or dremel, to more viable healthy nail plate or bed tissue 6-10 (G0127) Progress Notes * Cheri ARELLANOsDOB: [birth year] (69 yo F)Acc No.[id number]:06/30/2024 Progress Note Patient:?Karon ARELLANO Provider:?Risa Chen DPM :1955???Age:69 Y???Sex:Female D ate:06/30/2024 Address:[address] [place] [address], [facility] Pcp:Carmen Santiago Subjective: * Chief Complaints: * [...] instrumentation by the physician of record - 91027.?Nail Reduction:?Nail Reduction?Trimming of dystrophic nails performed to reduce/remove overall nail length and girth, by manual and electrical means with use of a nail nipper and/or dremel, to more viable healthy nail plate or bed tissue 6-10 (G0127).? * Procedure Codes:?G0127 ASHLEIGH ING DYSTROPHIC NAILS ANY #, Modifiers: XS 81507 TRIM SKIN LESIONS, OVER 4, Modifiers: XS [...] Chen, DPM Date:? Generated for Cheryl bundy/Rashard/Pedro on:?10/10/2024 07:46 AM EDT History and Physical Notes * [...]
--- OUTSIDE RECORDS SUMMARY | 2024-10-10 07:47 | XMS_ITS ---
Author Organization [facility] Address [address] [place] [address] Care Team Providers Care Mold Shop Supervisor Name Role Phone Carmen Santiago Primary Care Provider Unavailab Risa Castellanos Unavailable [phone] Allergies Allergen (clinical drug ingredient) Drug/Non Drug [...] 024 Encounters Encounter Location Date Provider Diagnosis [facility] [address] [address] 04/11/2024 Risa Chen Type 2 diabetes mellitus [...] Reason: Provider Name:Risa singh, 11/28/2024 10:00:00 AM, [address] [place] [address], [phone], Procedure Notes * Category Sub-Category Detail Notes Keratoma Treatment Parring or Cutting o f Benign Hyperkeratotic Lesion(s) (-57) More than 4 Lesions - The Benign hyperkeratotic lesions, as described above were pared, and/or cut utilizing a sterile 15 blade, tissue nippers, and/or dremel - 64836 Nail Reduction Nail Reduction Trimming of dyst rophic nails performed to reduce/remove overall nail length and girth, by manual and electrical means with use of a nail nipper and/or dremel, to more viable healthy nail plate or bed tissue 6-10 (G0127) Progress Notes * Cheri ARELLANOsDOB: [birth year] (68 yo F)Acc No.[id number]:04/11/2024 Progress Note Patient:?Karon Arellano Provider:?Risa Chen DPM :1955???Age:68 Y???Sex:Female D ate:04/11/2024 Address:[address] [place] [address], [facility] Pcp:Carmen Santiago Subjective: * Chief Complaints: * [...] 15 blade, tissue nippers, and/or dremel - 24560.?Nail Reduction:?Nail Reduction?Trimming of dystrophic nails performed to reduce/remove overall nail length and girth, by manual and electrical means with use of a nail nipper and/or dremel, to more viable healthy nail plate or bed tissue 6-10 (G0127).? * Procedure Codes:?G0127 ASHLEIGH ING DYSTROPHIC NAILS ANY #, Modifiers: XS 70074 TRIM SKIN LESIONS, OVER 4, Modifiers: XS [...] Chen DPM Date:?07/2023 Generated for Cheryl bundy/Rashard/Pedro on:?10/10/2024 07:47 AM [...]
[2024-10-10 08:45] LABS: Hematocrit 38.5 % (37.0-47.0); Hemoglobin 12.5 g/dl (12.0-16.0); Mean Corpuscular HGB Conc 32.5 g/dl (31.0-35.0); Mean Corpuscular Hemoglobin 27.1 pg (27.0-33.0); Mean Corpuscular Volume 83.5 fL (80.0-98.0); Platelet Count 247 X10*3/uL (160-400); Red Blood Count 4.61 X10*6/uL (4.20-5.50); Red Cell Distribution Width 13.8 % (11.0-16.0); White Blood Count 6.5 X10*3/uL (4.8-10.8)
[2024-10-10 09:00] LABS: Estimated Average Glucose 223 mg/dL; Hemoglobin A1C 263.2368 umol/L; Hemoglobin A1c % 9.4 % (<6.0); Total Hemoglobin (HGBA1C) 3342.9492 umol/L
[2024-10-10 09:29] LABS: Alanine Aminotransferase 31 U/L (0-31); Albumin Level 4.2 g/dL (3.5-5.0); Alkaline Phosphatase 133 U/L (39-117); Anion Gap 12 (12-20); Aspartate Amino Transferase 27 U/L (5-31); Bilirubin Total 0.7 mg/dL (0.0-1.0); Blood Urea Nitrogen 20 mg/dL (9-16); Calcium 10.1 mg/dL (8.4-10.2); Carbon Dioxide 29 mmol/L (22-29); Chloride 104 mmol/L (96-108); Cholesterol 207 mg/dL (<200); Estimated Glomerular Filt Rate 57; Glucose Random 206 mg/dL (60-115); HDL Cholesterol 42 mg/dL (>40); LDL Cholesterol Calculated 116 mg/dL (<100); Potassium 4.3 mmol/L (3.3-5.1); Sodium 141 mmol/L (135-145); Total Protein 7.3 g/dL (6.5-8.0); Triglycerides 248 mg/dL (<150)
[2024-10-10 09:54] LABS: Ferritin 97 ng/mL (10-250); TSH reflex Free T4 5.22 uIU/mL (0.32-4.0); Vitamin D 25-OH Total 46.8 ng/mL (>30)
[2024-10-10 09:57] LABS: Folate 10.1 ng/mL (> or = 4.0); Vitamin B12 918 pg/mL (200-900)
[2024-10-10 11:12] LABS: Reflex LDLD? No
[2024-10-10 11:40] LABS: Free T4 (Free Thyroxine) 1.28 ng/dL (0.71-1.85)
[2024-10-13 22:53] LABS: Methylmalonic Acid 137 nmol/L (69-390)
== END 2024-10-10 07:43 | disposition home or self-care (01) ==
LOC: HO.LAB 07:42
PROVIDERS: PCP Pediatrics; Visit Provider Physician Assistant Medical
DX: G47.9 Sleep disorder, unspecified (principal); R53.83 Other fatigue; R45.4 Irritability and anger; E66.813 Obesity, class 3; E66.01 Morbid (severe) obesity due to excess calories; Z68.42 Body mass index [BMI] 45.0-49.9, adult; E66.9 Obesity, unspecified; F09 Unspecified mental disorder due to known physiological condition; Z13.1 Encounter for screening for diabetes mellitus
CPT/HCPCS: 36415; 80053; 80061; 82306; 82607; 82728; 82746; 83036; 83090; 83921; 84439; 84443; 85027

== ENCOUNTER 2024-10-20 07:42 | Outpatient (REF) | payer OTHER, SELFPAY ==
--- OUTSIDE RECORDS SUMMARY | 2024-10-20 07:45 | XMS_ITS | Clinical Summary ---
Demographics Address [address] [place] [address] [address] [place] [address] Work Phone Mobile Phone Home Phone Preferred Language es Marital Status Single Rastafarian Affiliation Unknown Race Other Race Ethnic Group or Author Organization [employer] Address [address] [place] [address] [address] [place] [address] Care Team Providers Care Cost Estimator Name Role Phone Amina Nieves MD Primary Care Provider [phone] Allergies Active Allergy Reactions Criticality Noted Date [...] FOR IRRITATION 15 g 3 023 Active acetaminophen (Tylenol) 325 MG tablet [...] the morning. 90 tablet 3 023 Active Vtvmipg-Uslmqhi-Di thyl Elvin (Salonpas) 3.1-6-10 % patch APPLY [...] at bedtime for wheezing. 75 mL 11 Active D3 Super Strength 50 MCG (2000 UT) capsule TAKE 1 CAPSULE BY MOUTH EVERY MORNING 90 capsule 3 Active furosemide (Lasix) 20 MG tablet 06/04/2 024 Active acetic acid-hydrocortison e (Vosol-HC) otic solution [...] at bedtime (pain). 100 g 1 Active TRUEplus Lancets 33G misc TEST BLOOD SUGAR TWICE DAILY 100 each 11 Active FREESTYLE LITE test strip TEST BLOOD SUGAR TWICE DAILY 100 strip 11 Active Ketotifen Fumarate (Eye Itch Relief) 0.035 % solutionIndication s:Allergy, subsequent encounter Administer 1 drop into both eyes 2 times daily. 10 mL 1 Active Farxiga 10 MGIndications:Type 2 diabetes mellitus with diabetic neuropathy, without long-term current use of insulin (CMS/HCC) TAKE 1 TABLET BY MOUTH EVERY MORNING 90 tablet 3 024 Active nystatin (Mycostatin) 439924 UNIT/GM powderIndications: Skin candidiasis APPLY TO THE AFFECTED AREA(S) TWICE DAILY UNDER DEL ABDOMEN AND BETWEEN DE LOS THIGHS 120 g 2 024 Active lidocaine (Lidoderm) 5 % patchIndications:N romi [...] 2 diabetes mellitus with diabetic neuropathy, unspecified ([facility]) TAKE 1 TABLET BY MOUTH EVERY MORNING 90 tablet 3 025 Active montelukast (Singulair) 10 MG tabletIndications: Allergic rhinitis, unspecified seasonality, unspecified trigger TAKE 1 TABLET BY MOUTH EVERY MORNING FOR ALLERGIES 90 tablet 3 025 Active Blood Glucose Monitoring Suppl ([employer]) w/Device kitIndications:Typ e 2 diabetes mellitus with diabetic neuropathy, without long-term current use of insulin ([facility]) Use to test blood sugar two times daily 1 kit 025 Active meclizine (Antivert) 25 MG tabletIndications: Dizziness TAKE 1 TABLET BY MOUTH THREE TIMES DAILY NEEDED FOR DIZZINESS 60 tablet 3 025 Active cyclobenzaprine (Flexeril) 5 MG tabletIndications: Leg cramps TAKE 1 TABLET BY MOUTH AT BEDTIME NEEDED FOR CRAMPS 30 tablet 2 025 Active Diclofenac Sodium 1 % gelIndications:Kasia n in both feet APPLY 2 GRAMS TOPICALLY TO FEET UP TO THREE TIMES DAILY 100 g 2 023 2024 Discontinued(D uplicate order (will not trigger notification to Pharmacy)) meclizine (Antivert) 25 MG tabletIndications: Dizziness TAKE 1 TABLET BY MOUTH THREE TIMES DAILY NEEDED FOR DIZZINESS 60 tablet 3 024 2024 Discontinued cyclobenzaprine (Flexeril) 5 MG tabletIndications: Leg cramps TAKE 1 TABLET BY MOUTH AT BEDTIME NEEDED FOR CRAMPS 30 tablet 2 025 2024 Discontinued Active Problems Problem Noted Date Diagnosed Date Pre-op exam 10/11/2024 Endometrial cancer 12/20/2023 Assessment & Plan (12/23/2023 2:30 PM EDT): [facility] 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 Ying 01/2023 - referred to [facility] Onc by Dr. Ying with Dr. Rodriguez at [facility] wafer line worker Oncology on 01/14/2023 at 10:00. -CT scan [...] Encounters Date Type Department Care Team Description 10/18/2024 Refill [facility] [address] [place] [address] Amina Nieves MD Leg cramps 10/17/2024 Telephone [facility] [address] [place] [phone] Jojo Nieto RN 10/16/2024 Telephone [facility] [address] [place] [phone] Pasha Alas [place] Faxed to surgeon 10/16/2024 Refill [facility] [address] [place] [address] Amina Nieves MD Dizziness 10/12/2024 Refill [facility] [address] [place] [address] Amina Nieves MD Type 2 diabetes mellitus with diabetic neuropathy, without long-term current use of insulin ([facility]) 10/11/2024 10:00 AM EDT Office Visit [facility] [address] [place] [address] Xiomy Daigle FNP Pre-op exam (Primary Dx); Type 2 diabetes mellitus with diabetic neuropathy, without long-term current use of insulin ([facility]); Primary hypertension; Mild intermittent asthma, unspecified whether complicated; Obstructive sleep apnea 10/11/2024 Travel 10/10/2024 Orders Only GENERIC EXTERNAL DATA DEPARTMENT Provider, Generic External Data 10/06/2024 Telephone [facility] [address] [place] [phone] Amina Nieves MD Pre-op Exam 09/20/2024 Refill [facility] [address] [place] [phone] Amina Nieves MD Type 2 diabetes mellitus with diabetic neuropathy, unspecified ([facility]); Allergic rhinitis, unspecified seasonality, unspecified trigger 09/20/2024 Refill [facility] [address] [address] Kapil Blackman MD Allergic rhinitis, unspecified seasonality, unspecified trigger 09/18/2024 Orders Only [facility] External Provider, [facility] 09/15/2024 Refill [facility] [address] [address] Amina Nieves MD 08/16/2024 8:40 AM EST [facility] [address] [address] Pat Carson NP Acute nonintractable headache, unspecified headache type (Primary Dx); Neck pain, musculoskeletal from Last 3 Months Immunizations Name Administration [...] housing situation today? I have tim rao 10/11/[address] you li ve. Do you have problems with any of the following? None of the above 10/11/2024 Food Insecurity Answer Date Recorded Within the past 12 months, y ou worried that your food would run out before you got money to buy more: Never True 10/11/2024 Within the past 12 months,th e food you bought just didn't last and you didn't have enough money to get more: Never True 08/2024 Transportation Answer Date Recorded In the past 12 months, has l ack of transportation kept you from medical appts, meetings, work or from getting things needed for daily living? No 10/11/2024 Utilities Answer Date Recorded In the past 12 months, has t he electric, gas, oil or water [employer] threatened to shut off services in your home? No 10/11/2024 Depression Answer Date Recorded Patient Health Questionnaire-2 Score 0 09/22/2023 Internet Access Answer Date Recorded Internet Access Q1 Yes 10/11/2024 Internet Access Q2 Not on file 10/11/2024 Comments Unknown Sex and Gender Information Value Date Recorded Sex Assigned at Female 05/11/2022 10:15 AM EDT Legal Sex Female 10:15 AM EDT Gender Identity Female 05/11/2022 10:15 AM EDT Sexual Orientation Straight 05/11/2022 10 :15 AM EDT Last Filed Vital Signs Vital Sign Reading Time Taken Comments Blood Pressure 130/60 10/11/2024 10:21 AM EDT Pulse 76 10/11/2024 10:21 AM EDT Temperature 36.6 ??C (97.9 ??F) 10/11/2024 10:21 AM E DT Respiratory Rate 20 10/11/2024 10:21 AM EDT Oxygen Saturation 98% 08/16/2024 8:48 AM EST Inhaled Oxygen Concentration - - Weight 105 kg (232 lb 4 oz) 10/11/2024 10:21 AM EDT Height 149.9 cm (4' 11 ) 10/11/2024 10:21 AM EDT Body Mass Index 46.91 10/11/2024 10:21 AM EDT Plan of Treatment Upcoming Encounters Date Type Department Care Team (Late st Contact Info) Description 10/20/2024 10:30 AM EDT Office Visit [facility] [address] [place] [phone] Amina Nieves MD [address] [place] [phone] 01/26/2025 9:30 AM EDT Office Visit [facility] [address] [place] [phone] Amina Nieves MD [address] [place] [phone] Health Maintenance Due Date Last Done Comments CT Colonography 1955 FIT DNA/Cologuard 1955 FIT 1955 FOBT 1955 Sigmoidoscopy 1955 Eye Exam 1963 RSV Patients and Patients Aged 60 years or older (1 - Risk 60-74 years 1-dose series) 2013 COVID-19 Vaccine ( season) 2024 02/25/2022, 12/30/2020, 12/02/2020 Depression Screening 09/21/2024 09/22/2023, 09/22/19 24 Colonoscopy 10/17/2024 10/18/2019 Colorectal Cancer Screening 10/17/2024 Mammogram 12/21/2024 12/22/2023, 10/11, 05/21/2021, Additional history exists Diabetes: Hemoglobin A1C 01/09/2025 025, 05/25/2024, 11/02/2023, Additional history exists Diabetes: Foot Exam 05/25/2025 05/25/2024, 12/18/2022, 12/18/2022 Diabetes: Urine Protein Screening 05/25/2025 05/25/2024, 06/23/2022, 03/19/2022, Additional history exists Lipid Panel 10/10/2025 10/10/2024, 05/12, 06/18/2023, Additional history exists Alcohol/Substance Use Screening 10/11/2025 10/11/2024 SDOH Screening 10/11/2025 10/11/2024 Tobacco Screening 10/11/2025 10/11/2024 DTaP/Tdap/Td Vaccines (3 - Td or Tdap) [...] Procedure Name Priority Date/Time Associated Diagnosis Comments POCT GLUCOSE Routine 10/11/2024 10:24 AM EDT Type 2 diabetes mellitus with diabetic neuropathy, without long-term current use of insulin ([facility]) METHYLMALONIC ACID Routine 10/10/2024 7: 54 AM EDT HOMOCYSTEINE Routine 10/10/2024 7:54 AM EDT T4, FREE Routine 10/10/2024 7:54 AM EDT VITAMIN B12/FOLATE, SERUM PANEL Routine 10/10/2024 7:54 AM EDT TSH W/REFLEX TO FT4 Routine 10/10/2024 7 :54 AM EDT VITAMIN D,25-OH,TOTAL,IA Routine 10/10/2024 7:54 AM EDT FERRITIN Routine 10/10/2024 7:54 AM EDT LIPID PANEL WITH REFLEX TO DIRECT LDL Routine 10/10/2024 7:54 AM EDT COMPREHENSIVE METABOLIC PANEL Routine 10/10/2024 7:54 AM EDT HEMOGLOBIN A1C Routine 10/10/2024 7:54 AM EDT CBC Routine 10/10/2024 7:54 AM EDT US RENAL BI Routine 09/18/2024 9:40 AM EDT XR KUB AND UPRIGHT 2 VIEWS Routine 09/18/2024 8:04 AM EDT US ABDOMEN BECK W ELASTOGRAPHY Routine 07/25/2024 7:25 AM EST HEPATITIS C AB W/REFL TO [...] Recently Relevant to Health Maintenance Results * (ABNORMAL) POCT Glucose (10/11/2024 10:24 AM EDT) Glucose Blood, POC 268(A) 60 - 200 mg/dL QC Media Lot # [id number] Lot# Expiration Date Blood Capillary blood specimen / Unknown 10/11/2024 10:24 AM EDT us Xiomy [employer] OPERATIONS ADVISOR POINT OF CARE TEST ENTER/EDIT ORDERABLES Final Result * Vitamin D, 25-Hydroxy, Total, Immunoassay (10/10/2024 7:54 AM EDT) Vitamin D 25-OH Total 46.8 >30 ng/mL [facility] Comment: Health Based Reference Values*< 20 ??ng/mL ??Pyxornckc18-39 ng/mL ??Insufficient> 30 ??ng/mL ??Sufficient*Delmis LEVINE. N Engl J Med. 2007;357:266-280There is no well-established upper level of normal vitamin Dlevels. Some laboratories use 50 ng/mL as an upper limit ofnormal. However, toxicity is patient-dependent and may occurat any level. Careful correlation with the patient'spresentation is necessary and, if there is concern forvitamin D toxicity, treatment should be consideredirrespective of the serum level.Care must be taken in interpreting Vitamin D results fromdifferent laboratories and methodologies. ??Published datademonstrated that results from patients undergoinghemodialysis may show a negative bias when tested withvarious automated 25-OH vitamin D assays when compared toLC- MS/MS.When testing samples from patients whose predominant form ofVitamin D is Vitamin D2, such as patients receiving VitaminD2 supplementation, results that are subtherapeutic shouldbe confirmed with another method such as LC-MS/MS. 10/10/2024 7:54 AM EDT 10/10/2024 7:54 AM EDT us Generic External Data Provider LAB BLOOD ORDERAB LES Final Result [facility] [address] [place] [phone] * (ABNORMAL) Vitamin B12 (Cobalamin) and Folate Panel, Serum (10/10/2024 7:54 AM EDT) Vitamin B12 918(H) 200 - 900 pg/mL [facility] Comment:NORMAL 200-900 PG/ML INDETERMINATE 160-199 PG/ML DEFICIENT < 160 PG/ML Folate 10.1 > or = 4.0 ng/mL [facility] Comment:Reference Values:> o r = 4.0 ng/mL< 4.0 ng/mL suggests folate deficiency Methotrexate, aminopterin and folinic acid(leucovorin) are chemotherapeutic agents whose molecularstructures are similar to folate; therefore, the Architectfolate assay cannot be used for patients using these drugs. 10/10/2024 7:54 AM EDT 10/10/2024 7:54 AM EDT us Generic External Data Provider LAB BLOOD ORDERAB LES Final Result Performing Organization Address [facility]/ZIP Co de Phone Number [facility] [address] [place] [phone] * (ABNORMAL) TSH with Reflex to Free T4 (10/10/2024 7:54 AM EDT) TSH reflex Free T4 5.22(H) 0.32 - 4.0 uIU/mL [facility] 10/10/2024 7:54 AM EDT 10/10/2024 7:54 AM EDT us Generic External Data Provider LAB BLOOD ORDERAB LES Final Result Performing Organization Address [facility] Co de Phone Number [facility] [address] [place] [phone] * (ABNORMAL) Lipid Panel with Reflex to Direct LDL (10/10/2024 7:54 AM EDT) Triglycerides 248(H) <150 mg/dL [facility] Comment:Desirable Triglyceri de: less than 150 mg/dLBorderline High Triglyceride 150-199 mg/dLHigh Triglyceride: 200-499 mg/dLVery High Triglyceride: greater than or equal to 5OO mg/dL Cholesterol 207(H) <200 mg/dL [facility] Comment:Desirable Cholestero l: less than 200 mg/dLBorderline High Cholesterol: 200-239 mg/dLHigh Cholesterol: greater than 239 mg/dL LDL Cholesterol Calculated 116(H) <100 mg/dL [facility] Comment:Desirable LDL: less than 100 mg/dLNear Optimal/Above Optimal LDL: 110- 129 mg/dLBorderline High LDL: 130-159 mg/dLHigh LDL: 160-189 mg/dLVery High LDL: greater than or equal to 190 mg/dL HDL Cholesterol 42 >40 mg/dL [facility] Comment:Desirable HDL: great er than 40 mg/dL Note: This HDL assay may give artificially low results in patients with liver disease. 10/10/2024 7:54 AM EDT 10/10/2024 7:54 AM EDT Generic External Data Provider LAB BLOOD ORDERAB LES Final Result [facility] [address] [place] [address] [phone] * Methylmalonic Acid (10/10/2024 7:54 AM EDT) Methylmalonic Acid 137 69 - 390 nmol/L [facility] Comment: Serum methylmalonic acid (MMA) levels are used todiagnose and monitor several rare inborn errors ofmetabolism, including methylmalonic aciduria. Theenzymatic conversion of MMA to succinic acid requiresvitamin B12 (adenosyl-cobalamin) as a cofactor. SerumMMA levels are also used for assessing functionalvitamin B12 deficiency. Vitamin B12 is essential forfetal neurodevelopment, particularly early inpregnancy. Undiagnosed maternal vitamin B12 deficiencymay be associated with adverse / outcomes,such as neural tube defects and intrauterine growthrestriction.[employer] utilized Multi-Modal Decomposition(MMD) analysis to establish first and second trimester-specific MMA reference intervals in , as givenbelow:MMA, First trimester (<13 wks gestation): 58-167 nmol/LMMA, Second trimester (13-23 wks gestation):63-241 nmol/LThis test was developed and its analytical performancecharacteristics have been determined by [employer]. It has not been cleared or approved by theFDA. This assay has been validated pursuant to the CLIAregulations and is used for clinical purposes.THIS TEST WAS PERFORMED AT:[employer] SERVICESENFPKHCPA[address] [place], [place] ??[phone] HULL MD,PHD 10/10/2024 7:54 AM EDT 10/10/2024 7:54 AM EDT us Generic External Data Provider LAB BLOOD ORDERAB LES Final Result [facility] [address] [place] [phone] [phone] * CBC (10/10/2024 7:54 AM EDT) White Blood Count 6.5 4.8 - 10.8 X10*3/uL [facility] Red Blood Count 4.61 4.20 - 5.50 X10*6/uL [facility] Hemoglobin 12.5 12.0 - 16.0 g/dl [facility] Hematocrit 38.5 37.0 - 47.0 % [facility] Mean Corpuscular Volume 83.5 80.0 - 98.0 fL [facility] Mean Corpuscular Hemoglobin 27.1 27.0 - 33.0 pg [facility] Mean Corpuscular HGB Conc 32.5 31.0 - 35.0 g/dl [facility] Red Cell Distribution Width 13.8 11.0 - 16.0 % [facility] Platelet Count 247 160 - 400 X10*3/uL [facility] Mean Platelet Volume 12.0 9.4 - 12.3 fL [facility] NRBC Pct Auto 0.0 0.0 - 0.2 /100WBC [facility] NRBC Abs Auto 0.000 0.0 - 0.012 X10*3/uL [facility] 10/10/2024 7:54 AM EDT 10/10/2024 7:54 AM EDT us Generic External Data Provider LAB BLOOD ORDERAB LES Final Result [facility] [address] [place] [address] [phone] * T4, Free (10/10/2024 7:54 AM EDT) Free T4 (Free Thyroxine) 1.28 0.71 - 1.85 ng/dL [facility] 10/10/2024 7:54 AM EDT 10/10/2024 7:54 AM EDT Generic External Data Provider LAB BLOOD ORDERAB LES Final Result Performing Organization Address [facility] Co de Phone Number [facility] [address] [place] [phone] * (ABNORMAL) Homocysteine (10/10/2024 7:54 AM EDT) Homocysteine 15.0(A) <10.4 umol/L [facility] Comment:Homocysteine is incr eased by functional deficiency offolate or vitamin B12. Testing for methylmalonic aciddifferentiates between these deficiencies. Other causesof increased homocysteine include renal failure, folateantagonists such as methotrexate and phenytoin, andexposure to nitrous oxide.Isaias Montes, et al., Jhoana [employer]band [employer] Med. 1999;131(5):331-9.THIS TEST WAS PERFORMED AT:[employer] [place] [id number] COREAS MD 10/10/2024 7:54 AM EDT 10/10/2024 7:54 AM EDT Generic External Data Provider LAB BLOOD ORDERAB LES Final Result Performing Organization Address [facility] de Phone Number [facility] [address] [place] [phone] * (ABNORMAL) Hemoglobin A1c (10/10/2024 7:54 AM EDT) Hemoglobin A1c 9.4(H) <6.0 % [facility] Comment:Hemoglobin A1C Refer ence Range Adults: 4.8 - 6.0 % Non diabetic: < 6.0 % Goal: < 7.0 %Additional Action Suggested: > 8.0 %Note: Hemoglobin A1c results are invalid for patients with abnormal amounts of HbF. Blood transfusions may impact the HbA1c concentration in the patient sample. Estimated Average Glucose 223 mg/dL [facility] Comment:eAG = Estimated ave rage glucose which is %A1C expressed asaverage glucose, using the formula of the C6A-FqeiworMwhmpda Glucose study (ADAG), Diabetes Care, Vol.31,#8,2007 10/10/2024 7:54 AM EDT 10/10/2024 7:54 AM EDT us Generic External Data Provider LAB BLOOD ORDERAB LES Final Result Performing Organization Address [facility]/ZIP Co de Phone Number [facility] [address] [place] [phone] * Ferritin (10/10/2024 7:54 AM EDT) Ferritin 97 10 - 250 ng/mL [facility] 10/10/2024 7:54 AM EDT 10/10/2024 7:54 AM EDT us Generic External Data Provider LAB BLOOD ORDERAB LES Final Result Performing Organization Address [facility]/ZIP Co de Phone Number [facility] [address] [place] [phone] * (ABNORMAL) Comprehensive Metabolic Panel (10/10/2024 7:54 AM EDT) Sodium 141 135 - 145 mmol/L [facility] Potassium 4.3 3.3 - 5.1 mmol/L [facility] Chloride 104 96 - 108 mmol/L [facility] Carbon Dioxide 29 22 - 29 mmol/L [facility] Anion Gap 12 12 - 20 [facility] Urea Nitrogen (BUN) 20(H) 9 - 16 mg/dL [facility] Creatinine, Serum 0.97 0.5 - 1.4 mg/dL [facility] Estimated Glomerular Filt Rate 57 [facility] Comment:Chronic Kidney Disea se: Estimated GFR < 60 mL/min/1.68m0Zsxpjk Kidney Disease: Estimated GFR < 15 mL/min/1.73m2 Glucose 206(H) 60 - 115 mg/dL [facility] Calcium 10.1 8.4 - 10.2 mg/dL [facility] Bilirubin, Total 0.7 0.0 - 1.0 mg/dL [facility] Aspartate Amino Transferase 27 5 - 31 U/L [facility] Alanine Aminotransferase 31 0 - 31 U/L [facility] Total Protein 7.3 6.5 - 8.0 g/dL [facility] Albumin Level 4.2 3.5 - 5.0 g/dL [facility] Alkaline Phosphatase 133(H) 39 - 117 U/L [facility] 10/10/2024 7:54 AM EDT 10/10/2024 7:54 AM EDT us Generic External Data Provider LAB BLOOD ORDERAB LES Final Result [facility] [address] [place] [address] [phone] * US RENAL BI (09/18/2024 9:40 AM EDT) Anatomical Region Laterality Modality Abdomen Ultrasound 09/18/2024 9:40 AM EDT Narrative 09/18/2024 9:42 AM EDT ? [facility] ?[address] ?[place] [address] ? Ultrasound Report ? Signed ? Patient: Karon Nur ?MR#: ?? [id number] ? : 1955 ?Acct:[id number] ? Age/Sex: 69 / F ?ADM Date: 09/18/24 ? Loc: HO.US ? Attending Dr: Lauren MCCORMACKP-BC ? Ordering Physician: Lauren Summers ?? Date of Service: 09/18/24 ?? Procedure(s): US renal BI ?? Accession Number(s): [id number] ? cc: Amina Nieves; Lauren Summers OPERATIONS ADVISOR- ? CLINICAL HISTORY: N20.0 - Calculus of [...] MD in OV> ?09/18/24 0941 ? DD/ 9 ? TD/TT: 09/18/24939 ? [employer] Maintainer: ? Procedure Note Donrussellter, Image - 09/18/2024 [place] [address] Ultrasound Report Signed Patient: Kiersten NurSupriya#: [id number] : 1955cct:[id number] Age/Sex: 69 / FADM Date: 09/18/24 Loc: HO.US Attending Dr: Lauren LOPES Ordering Physician: Lauren Summers Date of Service: 09/18/24 Procedure(s): US renal BI Accession Number(s): [id number] cc: Amina Nieves; Lauren Summers CLINICAL HISTORY: [...] in OV> 09/18/24940 DD/ 9 TD/TT: 09/18/24939 [employer] Maintainer: [facility] External Provider IMG US PROCEDURES Edited Result - Final * XR KUB and Upright 2 Views (09/18/2024 8:04 AM EDT) Anatomical Region Laterality Modality Radiographic Jannette ging 09/18/2024 8:04 AM EDT Narrative 09/19/2024 8:49 AM EDT ? [facility] ?[address] ?[place] [address] ?XRay Report ? Signed ? Patient: Karon Nur ?MR#: ?? [id number] ? : 1955 ?Acct:[id number] ? Age/Sex: 69 / F ?ADM Date: 09/18/24 ? Loc: HO.US ? Attending Dr: Lauren LOPES ? Ordering Physician: Lauren Summers ?? Date of Service: 09/18/24 ?? Procedure(s): XR KUB ?? Accession Number(s): [id number] ? cc: Amina Nieves; Lauren Summers ? [...] DD/ 0804 ? TD/TT: 09/18/24 0824 ? [employer] Maintainer: ? Procedure Note Donotuseinterpreter, Image - 09/19/[address] [address] XRay Report Signed Patient: Ron Nur#: [id number] : 1955cct:[id number] Age/Sex: 69 / FADM Date: 09/18/24 Loc: HO.US Attending Dr: Lauren MCCORMACKP- Ordering Physician: Lauren Summers Date of Service: 09/18/24 Procedure(s): XR KUB Accession Number(s): [id number] cc: Amina Nieves; Lauren Summers EXAMINATION: XR [...] 09/19/24 0846 DD/ 0804 TD/TT: 09/18/24 0824 [employer] Maintainer: [facility] External Provider IMG XR PROCEDURES Final Result * US ABDOMEN BECK W ELASTOGRAPHY (07/25/2024 7:25 AM EST) Anatomical Region Laterality Modality Abdomen Ultrasound 07/25/2024 7:25 AM EST Narrative 07/25/2024 3:23 PM EST ? [facility] [facility] ?[address] ?[place] [address] ? Ultrasound Report ? Signed ? Patient: Adan River,Karon ?MR#: ?? [id number] ? : 1955 ?Acct:[id number] ? Age/Sex: 69 / F ?ADM Date: 07/25/24 ? Loc: HO.US ? Attending Dr: Luisana LOPES ? Ordering Physician: Luisana Lou ?? Date of Service: 07/25/24 ?? Procedure(s): US abdomen beck w elastography ?? Accession Number(s): [id number] ? cc: Amina Nieves; Luisana Lou ? [...] ??Celso Dumas MD ??07/25/2024 03:20 PM EST ? Dictated By: ?Celso Dumas MD ? Signed By: ?<Electronically signed by Celso Dumas MD in OV> ?07/25/24 1520 ? DD/ ? TD/TT: 07/25/24743 ? [employer] System Maintainer: ? Procedure Note Donrussellter, Image - 07/25/2024 [place] [address] Ultrasound Report Signed Patient: Ron Nur#: [id number] : 1955cct:[id number] Age/Sex: 69 / FADM Date: 07/25/24 Loc: HO.US Attending Dr: Luisana LOPES Ordering Physician: Luisana Lou Date of Service: 07/25/24 Procedure(s): US abdomen beck w elastography Accession Number(s): [id number] cc: Amina Nieves; Luisana Lou EXAMINATION: US [...] Celso Dumas MD 07/25/2024 03:20 PM EST Dictated By: Celso Dumas MD Signed By: <Electronically signed by Celso Dumas MD in OV> 07/25/24 1520 DD/ 0725 TD/TT: 07/25/24 0744 [employer] System Maintainer: [facility] External Provider IMG US PROCEDURES Final Result * Albumin, Random Urine W/Creatinine (05/25/2024 9:46 AM EST) Creatinine, Urine 85.32 mg/dL [facility] Microalbumin Urine 23.0 mg/L [facility] Microalbum Creatinine Ratio Ur 26.9 <30 ug/mg cr [facility] Comment:Albumin/Creatinine R atio Reference Ranges: Normal: < 30 ug/mg creatinine Microalbuminuria: 30 - 300 ug/mg creatinineClinical Albuminuria: > 300 ug/mg creatinine Urine (Urine, Random) 05/25/2024 9:46 AM EST 05/25/2024 11:28 AM EST Amina Nieves MD LAB URINE ORDERABLES Final Res ult [facility] [address] [place] [address] [phone] * Hepatitis C Antibody with Reflex to HCV, RNA, Quantitative, Real-Time PCR (05/25/2024 9:46 AM EST) Hepatitis C Antibody Nonreactive Nonreactive [facility] Comment:Antibodies to HCV no t detected; does not exclude early acuteHCV infection. Blood Venous blood specimen / Unknown 05/25/2024 9:46 AM EST 05/25/2024 10:53 AM EST us Amina Nieves MD LAB BLOOD ORDERABLES Final Res ult [facility] [address] [place] [address] [phone] * BI Mammogram Screening Tomosynthesis Bilateral (12/22/2023 10:05 AM EDT) Anatomical Region Laterality Modality Breast Bilateral Mammography 12/22/2023 10:0 5 AM EDT Narrative 01/20/2024 9:58 AM EDT ? [facility] [place] ? [address] ?[place] [address] ? Mammography Report ? Signed ? Patient: Karon Nur ?MR#: ?? [id number] ? : 1955 ?Acct:[id number] ? Age/Sex: 68 / F ?ADM Date: 12/21/ ? Loc: HO.MAMMO ? Attending Dr: Amina Nieves MD ? Ordering Physician: Amina Nieves ?Results: 1Negative ? Date of Service: 12/21/ ?Follow Up: 1 Year From Orig ?? inal Mammogram ? Procedure(s): MM tomosynthesis screening BI ?? Accession Number(s): [id number] ? cc: Amina Nieves ? EXAMINATION: ?? [...] 0954 ? DD/ 1005 ? TD/TT: ? [employer] System Maintainer: ? Procedure Note Forrest Salter - 01/20/2024 [facility] [address] [place], [place] [address] Mammography Report Signed Patient: Ron Nur#: [id number] : 3Acct:[id number] Age/Sex: 68 / FADM Date: 12/22/23 Loc: HO.MAMMO Attending Dr: Amina Nieves MD Ordering Physician: Nicole Nievesults: 1Negative Date of Service: 12/22/23Follow Up: 1 Year From Orig inal Mammogram Procedure(s): MM tomosynthesis screening BI Accession Number(s): [id number] cc: Amina Nieves EXAMINATION: MM SCREENING DIGITAL [...] in OV> 01/20/24 0954 DD/ 1005 TD/TT: [employer] System Maintainer: Amina Nieves MD IMG BI PROCEDURES Final Result * (ABNORMAL) Hm Colonoscopy (10/18/2019) Colonoscopy Abnormal(A ) Normal Historical Provider HEALTH MAINTENANCE Edited Result - Final from Last 3 Months or Most Recently Relevant to Health Maintenance Insurance [address] [place] [id number] [facility] SCO 1 L [place] [id number] Care Teams Cost Estimator Relationship Specialty Start Date End Date Amina Nieves MD [address] [place] [address] [place] [address] PCP - General Family Medicine 04/07/21
--- OUTSIDE RECORDS SUMMARY | 2024-10-20 07:46 | XMS_ITS | Patient Health Record ---
Author Organization [facility] Address [address] [place] [address] Care Team Providers Care Wire Threader Name Role Phone Carmen Santiago Primary Care Provider UnavailRisa Toussaint Unavailable [phone] Allergies Allergen (clinical drug ingredient) Drug/Non Drug [...] Immunizations Vaccine Route Administration Date Status Comme [facility] COVID-19 Moderna Vaccine Unknown 12/25/2020 Administered [...] Problem Acquired hammer toe of right foot (5273807237575783 ) Other hammer toe(s) (acquired), right foot (M20.41) Active confirmed Problem Acquired hammer toe of left foot (3744718189944148 ) Other hammer toe(s) (acquired), left foot (M20.42) Active confirmed Problem Polyneuropathy due to type 2 diabetes mellitus (506706081) Type 2 diabetes mellitus with diabetic polyneuropathy (E11.42) Active confirmed Problem 651968877 Hammer toe of right foot (M20.41) Active confirmed Problem 046639282 Neuropathy (G62.9) Active confirmed Problem 58321403 Osteoarthritis o f right ankle and foot (M19.071) Active confirmed Vital Signs Blood pressure diastolic 75 mm Hg 09/13/2024 Height 9dk85bv in 09/13/2024 Blood pressure systolic 160 mm Hg 09/13/2024 Weight 235 lbs 09/13/2024 BMI 47.46 kg/m2 09/13/2024 Encounters Encounter Location Date Provider Diagnosis [address] [address] 11/09/2023 Risa Chen Type 2 diabetes mellitus with diabetic polyneuropathy E11.[address] [address] 01/26/2024 Risa Chen Type 2 diabetes mellitus with diabetic polyneuropathy E11.42 ; Neuropathy G62.9 and Neuropathic pain M79.[address] [address] 04/11/2024 Risa hCen Type 2 diabetes mellitus with diabetic polyneuropathy E11.42 and Xerosis of skin L85.[address] [address] 06/30/2024 Risa Chen Type 2 diabetes mellitus with diabetic polyneuropathy E11.42 and Xerosis of skin L85.[address] [address] 09/13/2024 Risa Chen Type 2 diabetes mellitus [...] Details Provider Name:Risa singh, 11/28/2024 10:00:00 AM, [address] [place] [address], [phone], Insurance Providers Payer Name Payer Address Payer Phone Subscriber Number Group Number Insured Name Patient Relationship to Insured Coverage Start Date Coverage End Date [facility] SCO Claims [address] [place] [address] [id number] Karon Howard Self - patient is the insured Medical (General) History Medical History History ICD Code Arthritis asthma type I diabetes Headaches High blood pressure Cataracts Joint implants/screws Cholesterol Surgical History Surgery Date(Month/Year) cataract removal 06/2024
--- OUTSIDE RECORDS SUMMARY | 2024-10-20 07:46 | XMS_ITS | Encounter Summary ---
Author Organization [employer] Address [address] [place] [address] 7t [place] [address] Care Team Providers Care Lumber Chain Offbearer Name Role Phone Amina Nieves MD Primary Care Provider [phone] Encounter Details Date Type Department Care Team (Late Contact Info) Description 10/27/2022 Orders Only [facility] [address] [place], [place] [phone] Amina Nieves MD [address] [place], [place] [phone] Vaginal bleeding (Primary Dx); Endometrial thickening on [...] as of this encounter Plan of Treatment Upcoming Encounters Date Type Department Care Team (Late st Contact Info) Description 10/20/2024 10:30 AM EDT Office Visit [facility] [address] [place] [address] Amina Nieves MD [address] [place] [address] 01/26/2025 9:30 AM EDT Office Visit [address] [address] Amina Nieves MD [address] [place] [address] documented as of this encounter Visit Diagnoses Diagnosis Vaginal bleeding- Primary Other specified noninflammatory disorder of vagina Endometrial thickening on ultrasound documented in this encounter Additional Health Concerns Assessment Noted Time PHQ-9 Depression Total Score: 0 09/22/19 23 10:45 AM EDT documented as of this encounter Care Teams Lumber Chain Offbearer Relationship Specialty Start Date End Date Amina Nieves MD [address] [place] [address] PCP - General Family Medicine 04/07/21 documented as of this encounter
--- OUTSIDE RECORDS SUMMARY | 2024-10-20 07:46 | XMS_ITS ---
Author Organization [facility] Address [address] [facility] [place] [address] Care Team Providers Care Aegis Operations Specialist Name Role Phone Carmen Santiago Primary Care Provider Unavailab Risa Castellanos Unavailable [phone] Allergies Allergen (clinical drug ingredient) Drug/Non Drug [...] 024 Encounters Encounter Location Date Provider Diagnosis [facility] [address] [address] 04/11/2024 Risa Chen Type 2 diabetes mellitus [...] Reason: Provider Name:Risa singh, 11/28/2024 10:00:00 AM, [address] [place] [address], [phone], Procedure Notes * Category Sub-Category Detail Notes Keratoma Treatment Parring or Cutting o f Benign Hyperkeratotic Lesion(s) (-57) More than 4 Lesions - The Benign hyperkeratotic lesions, as described above were pared, and/or cut utilizing a sterile 15 blade, tissue nippers, and/or dremel - 05987 Nail Reduction Nail Reduction Trimming of dyst rophic nails performed to reduce/remove overall nail length and girth, by manual and electrical means with use of a nail nipper and/or dremel, to more viable healthy nail plate or bed tissue 6-10 (G0127) Progress Notes * Cheri ARELLANOsDOB: [birth year] (68 yo F)Acc No.[id number]:04/11/2024 Progress Note Patient:?Karon Arellano Provider:?Risa Chen DPM :1955???Age:68 Y???Sex:Female D ate:04/11/2024 Address:[address] [place] [address], [facility], [id number] Pcp:Carmen Santiago Subjective: * Chief Complaints: * [...] 15 blade, tissue nippers, and/or dremel - 66309.?Nail Reduction:?Nail Reduction?Trimming of dystrophic nails performed to reduce/remove overall nail length and girth, by manual and electrical means with use of a nail nipper and/or dremel, to more viable healthy nail plate or bed tissue 6-10 (G0127).? * Procedure Codes:?G0127 ASHLEIGH ING DYSTROPHIC NAILS ANY #, Modifiers: XS 27222 TRIM SKIN LESIONS, OVER 4, Modifiers: XS [...] Chen DPM Date:?07/2023 Generated for Cheryl bundy/Rashard/Pedro on:?10/20/2024 07:46 AM EDT History and Physical Notes [...]
--- OUTSIDE RECORDS SUMMARY | 2024-10-20 07:46 | XMS_ITS | Encounter Summary ---
Author Organization [employer] [facility] Address [address] [place] [address] 7t [place] [address] Care Team Providers Care News Librarian Name Role Phone Amina Nieves MD Primary Care Provider [phone] Reason for Visit * Reason Comments Med Refill Encounter Details Date Type Department Care Team (Late st Contact Info) Description 01/23/2023 Refill [facility] [address] [place], [place] [phone] Amina Nieves MD [address] [place], [place] [phone] Social History Tobacco Use Types Packs/Day Years [...] Description 10/20/2024 10:30 AM EDT Office Visit [facility] [address] [place] [address] [phone] Amina Nieves MD [address] [place] [address] [phone] 01/26/2025 9:30 AM EDT Office Visit [facility] [address] [place], [place] [phone] Amina Nieves MD [address] [place], [place] [phone] documented as of this encounter Visit Diagnoses Not on filedocumented in this encounter Additional Health Concerns Assessment Noted Time PHQ-9 Depression Total Score: 0 09/22/19 23 10:45 AM EDT documented as of this encounter Care Teams News Librarian Relationship Specialty Start Date End Date Amina Nieves MD [address] [place], [place] [phone] PCP - General Family Medicine 04/07/21 documented as of this encounter
--- OUTSIDE RECORDS SUMMARY | 2024-10-20 07:46 | XMS_ITS | Encounter Summary ---
Author Organization [employer] Address [address] [place] [address] 7t [place] [address] Care Team Providers Care Laborer Concrete Paving Name Role Phone Amina Nieves MD Primary Care Provider [phone] Reason for Visit * Reason Comments Med Refill Encounter Details Date Type Department Care Team ([facility] st Contact Info) Description 05/07/2023 Refill [facility] [address] [place], [place] [phone] Amina Nieves MD 230 [place], [place] [phone] Rash Social History Tobacco Use Types Packs/Day [...] Description 10/20/2024 10:30 AM EDT Office Visit [facility] [address] [place] [address] Amina Nieves MD [address] [place] [address] 01/26/2025 9:30 AM EDT Office Visit [facility] [address] [place] [address] Amina Nieves MD [address] [place] [address] [phone] documented as of this encounter Visit Diagnoses Diagnosis Rash Rash and other nonspecific skin eruption documented in this encounter Additional Health Concerns Assessment Noted Time PHQ-9 Depression Total Score: 0 09/22/19 23 10:45 AM EDT documented as of this encounter Care Teams Laborer Concrete Paving Relationship Specialty Start Date End Date Amina Nieves MD [address] [place] [phone] PCP - General Family Medicine 04/07/21 documented as of this encounter
--- OUTSIDE RECORDS SUMMARY | 2024-10-20 07:46 | XMS_ITS | Encounter Summary ---
Author Organization [employer] Address [address] [facility] 7t [place] [address] Care Team Providers Care Rehab Department Manager Name Role Phone Amina Nieves MD Primary Care Provider [phone] Reason for Visit * Reason Comments Med Refill Encounter Details Date Type Department Care Team ([facility] st Contact Info) Description 06/01/2024 Refill [facility] 230 [place], [place] [phone] Jhoana Worrell DO 230 [place], [place] [phone] Social History Tobacco Use Types Packs/Day Years [...] Description 10/20/2024 10:30 AM EDT Office Visit [facility] [address] [place] [address] Amina Nieves MD [address] [place] [address] 01/26/2025 9:30 AM EDT Office Visit [address] [address] Amina Nieves MD [address] [place] [address] documented as of this encounter Visit Diagnoses Not on filedocumented in this encounter Additional Health Concerns Assessment Noted Time PHQ-9 Depression Total Score: 0 09/22/19 24 2:51 PM EDT documented as of this encounter Care Teams Rehab Department Manager Relationship Specialty Start Date End Date Amina Nieves MD [address] [place] [address] [phone] PCP - General Family Medicine 04/07/21 documented as of this encounter
--- OUTSIDE RECORDS SUMMARY | 2024-10-20 07:46 | XMS_ITS | Encounter Summary ---
Author Organization [employer] Address [address] [facility] 7t [place] [address] Care Team Providers Care Android Ui Developer Name Role Phone Amina Nieves MD Primary Care Provider [phone] Encounter Details Date Type Department Care Team (Late st Contact Info) Description 01/26/2024 Orders Only [facility] [address] [place], [place] [phone] Amina Nieves MD 230 [place], [place] [phone] Social History Tobacco Use Types Packs/Day Years [...] Description 10/20/2024 10:30 AM EDT Office Visit [facility] [address] [place] [address] Amina Nieves MD [address] [place] [address] 01/26/2025 9:30 AM EDT Office Visit [facility] [address] [place] [address] Amina Nieves MD [address] [place] [address] [phone] documented as of this encounter Visit Diagnoses Not on filedocumented in this encounter Additional Health Concerns Assessment Noted Time PHQ-9 Depression Total Score: 0 09/22/19 24 2:51 PM EDT documented as of this encounter Care Teams Android Ui Developer Relationship Specialty Start Date End Date Amina Nieves MD [address] [place] [address] [phone] PCP - General Family Medicine 04/07/21 documented as of this encounter
--- OUTSIDE RECORDS SUMMARY | 2024-10-20 07:46 | XMS_ITS ---
Author Organization [facility] Address [address] [facility] [place] [address] Care Team Providers Care Raking Machine Operator Name Role Phone Carmen Santiago Primary Care Provider Unavailab Risa Castellanos Unavailable [phone] Allergies Allergen (clinical drug ingredient) Drug/Non Drug [...] other tobacco user? No Vital Signs Height 7nu21gq in 09/13/2024 Weight 235 lbs 09/13/2024 BMI 47.46 kg/m2 09/13/2024 Blood pressure systolic 160 mm Hg 09/14/19 25 Blood pressure diastolic 75 mm Hg 025 Encounters Encounter Location Date Provider Diagnosis [facility] [place] [address] [place] [address] 09/13/2024 Risa Chen Type 2 diabetes mellitus [...] Reason: Provider Name:Risa singh, 11/28/2024 10:00:00 AM, [address] [place] [address], [phone], Procedure Notes * Category Sub-Category Detail Notes [...] instrumentation by the physician of record - 60249 Nail Reduction Nail Reduction (-27) Trimming o [...] * Cheri ARELLANOsDOB: [birth year] (69 yo F)Acc No.[id number]:09/13/2024 Progress Note Patient:?ALEKSEY Karon Provider:?Risa Chen DPM :1955???Age:69 Y???Sex:Female D ate:09/13/2024 Address:[address] [place], [place] [phone] Pcp:Carmen Santiago Subjective: * Chief Complaints: * [...] * Allergies:?Leonid adrian[Allergies Verified] Objective: * Vitals:?Ht: 3kv53hk, Wt:235, BMI:47.46, Shoe size: 8, BP:160/75mm Hg, [...] instrumentation by the physician of record - 94541.?Nail Reduction:?Nail Reduction?(-27) Trimming of all dystrophic nails [...] ING DYSTROPHIC NAILS ANY #, Modifiers: XS 10245 TRIM SKIN LESIONS, OVER 4, Modifiers: XS [...] Chen DPM Date:?11/2024 Generated for Cheryl bundy/Rashard/Pedro on:?10/20/2024 07:45 AM EDT History and Physical Notes * [...]
--- OUTSIDE RECORDS SUMMARY | 2024-10-20 07:46 | XMS_ITS ---
Author Organization [facility] Address [address] [facility] [place] [address] Care Team Providers Care Vein Access Technician Name Role Phone Carmen Santiago Primary Care Provider Unavailab Risa Castellanos Unavailable [phone] Allergies Allergen (clinical drug ingredient) Drug/Non Drug [...] 024 Encounters Encounter Location Date Provider Diagnosis [facility] [address] [address] 06/30/2024 Risa Chen Type 2 diabetes mellitus with diabetic polyneuropathy E11.42 and Xerosis of skin L85.3 Assessments Encounter Date Diagnosis (ICD Code) Assessment Notes Treatment Notes Treatment Clinical Notes Section Notes 06/30/2024 Type 2 diabetes mellitus with diabetic polyneuropathy (ICD-10 - E11.42) 06/30/2024 Xerosis of skin (ICD-10 - L85.3) Plan Of Treatment Next Appt Details Follow Up: 2 Months, Reason: Provider Name:Rias singh, 11/28/2024 10:00:00 AM, [address] [place] [address], [phone], Procedure Notes * Category Sub-Category Detail Notes [...] instrumentation by the physician of record - 04479 Nail Reduction Nail Reduction Trimming of dyst rophic nails performed to reduce/remove overall nail length and girth, by manual and electrical means with use of a nail nipper and/or dremel, to more viable healthy nail plate or bed tissue 6-10 (G0127) Progress Notes * Cheri ARELLANOsDOB: [birth year] (69 yo F)Acc No.[id number]:06/30/2024 Progress Note Patient:?Karon ARELLANO Provider:?Risa Chen DPM :1955???Age:69 Y???Sex:Female D ate:06/30/2024 Address:[address] [place] [address], [facility] Pcp:Carmen Santiago Subjective: * Chief Complaints: * [...] instrumentation by the physician of record - 13971.?Nail Reduction:?Nail Reduction?Trimming of dystrophic nails performed to reduce/remove overall nail length and girth, by manual and electrical means with use of a nail nipper and/or dremel, to more viable healthy nail plate or bed tissue 6-10 (G0127).? * Procedure Codes:?G0127 ASHLEIGH ING DYSTROPHIC NAILS ANY #, Modifiers: XS 84738 TRIM SKIN LESIONS, OVER 4, Modifiers: XS [...] Chen, DPM Date:? Generated for Cheryl bundy/Rashard/Pedro on:?10/20/2024 07:46 AM [...]
--- OUTSIDE RECORDS SUMMARY | 2024-10-20 07:46 | XMS_ITS | Encounter Summary ---
Author Organization [employer] Address [address] [facility] 7t [place] [address] Care Team Providers Care Watch Parts Inspector Name Role Phone Amina Nieves MD Primary Care Provider [phone] Reason for Visit * Reason Comments Med Refill Encounter Details Date Type Department Care Team ([facility] st Contact Info) Description 10/16/2024 Refill [facility] [address] [place], [place] [phone] Amina Nieves MD [address] [place] [address] Dizziness Social History Tobacco Use Types Packs/Day Years [...] Description 10/20/2024 10:30 AM EDT Office Visit [facility] [address] [place] [address] Amina Nieves MD [address] [place] [address] 01/26/2025 9:30 AM EDT Office Visit [address] [address] Amina Nieves MD [address] [place] [address] [phone] documented as of this encounter Visit Diagnoses Diagnosis Dizziness Dizziness and giddiness documented in this encounter Additional Health Concerns Assessment Noted Time PHQ-9 Depression Total Score: 0 09/22/19 24 2:51 PM EDT documented as of this encounter Care Teams Watch Parts Inspector Relationship Specialty Start Date End Date Amina Nieves MD [address] [place] [address] PCP - General Family Medicine 04/07/21 documented as of this encounter
--- OUTSIDE RECORDS SUMMARY | 2024-10-20 07:46 | XMS_ITS | Encounter Summary ---
Author Organization [employer] Address [address] [place] [address] 7t [place] [address] Care Team Providers Care Installer Soft Top Name Role Phone Amina Nieves MD Primary Care Provider [phone] Reason for Visit * Reason Onset Date Comments Faxed to surgeon 10/16/2024 Encounter Details Date Type Department Care Team (Late st Contact Info) Description 10/16/2024 Telephone [facility] [address] [place], [place] [phone] Pasha Alas [place] Faxed to surgeon Social History Tobacco Use Types Packs/Day Years [...] AM EDT documented as of this encounter Miscellaneous Notes * Telephone Encounter - Pasha Alas [place] - 10/16/2024 9:40 AM EDT Notes faxed over to [facility] , surgeon Dr. Teddy Bauer , conformation sent okay documented in this encounter Plan of Treatment Upcoming Encounters Date Type Department Care Team (Late st Contact Info) Description 10/20/2024 10:30 AM EDT Office Visit [facility] [address] [place] [address] Amina Nieves MD [address] [place] [address] 01/26/2025 9:30 AM EDT Office Visit [facility] [address] [place] [address] Amina Nieves MD [address] [place] [address] documented as of this encounter Visit Diagnoses Not on filedocumented in this encounter Additional Health Concerns Assessment Noted Time PHQ-9 Depression Total Score: 0 09/22/19 24 2:51 PM EDT documented as of this encounter Care Teams Installer Soft Top Relationship Specialty Start Date End Date Amina Nieves MD 230 [place] [address] PCP - General Family Medicine 04/07/21 documented as of this encounter
--- OUTSIDE RECORDS SUMMARY | 2024-10-20 07:46 | XMS_ITS | Encounter Summary ---
Author Organization [employer] Address [address] [facility] [address] [place] [address] Care Team Providers Care Physicist Acoustics Name Role Phone Amina Nieves MD Primary Care Provider [phone] Reason for Visit * Reason Comments Med Refill Encounter Details Date Type Department Care Team ([facility] st Contact Info) Description 10/18/2024 Refill [facility] [address] [place], [place] [phone] Amina Nieves MD [address] [place] [address] Leg cramps Social History Tobacco Use Types Packs/Day Years [...] Description 10/20/2024 10:30 AM EDT Office Visit [facility] [address] [place] [phone] Amina Nieves MD [address] [place] [phone] 01/26/2025 9:30 AM EDT Office Visit [facility] [address] [place] [phone] Amina Nieves MD [address] [place] [phone] documented as of this encounter Visit Diagnoses Diagnosis Leg cramps Cramp of limb documented in this encounter Additional Health Concerns Assessment Noted Time PHQ-9 Depression Total Score: 0 09/22/19 24 2:51 PM EDT documented as of this encounter Care Teams Physicist Acoustics Relationship Specialty Start Date End Date Amina Nieves MD [address] [place] [phone] PCP - General Family Medicine 04/07/21 documented as of this encounter
--- OUTSIDE RECORDS SUMMARY | 2024-10-20 07:46 | XMS_ITS | Encounter Summary ---
Author Organization [employer] Address [address] [facility] [address] [place] [address] Care Team Providers Care Chief Minister Name Role Phone Amina Nieves MD Primary Care Provider [phone] Encounter Details Date Type Department Care Team (Late st Contact Info) Description 10/17/2024 Telephone [facility] [place] [facility] [address] [place] [phone] Jojo Nieto RN Social History Tobacco Use Types Packs/Day Years [...] encounter Miscellaneous Notes * Telephone Encounter - Jojo Nieto RN - 10/17/2024 9:26 AM EDT Tc to [facility] to let them know per PCP Please can you let the surgeon office know that Karon has uncontrolled diabetes with elevated A1C above 9 % and will defer the decision of date and time of surgery to the surgeon while we continue to work with Karon to reduce her blood sugarlevels. Thank you . They report the pre-op note has not been scanned into their chart and requestedfor us to re fax the documents. Pre-op note faxed, confirmation received and placed into HIM scanning bin. * Telephone Encounter - Jojo Nieto RN - 10/17/2024 9:23 AM EDT ----- Message from Xiomy Daigle sent at 10/14/2024 9:34 AM EDT ----- Please can you let the surgeon office know that Karon has uncontrolled diabetes with elevated A1C above 9 % and will defer the decision of date and time of surgery to the surgeon while we continue to work with Karon to reduce her blood sugar levels. Thank you documented in this encounter Plan of Treatment Upcoming Encounters Date Type Department Care Team (Late st Contact Info) Description 10/20/2024 10:30 AM EDT Office Visit [facility] [address], [place] [phone] Amina Nieves MD [address] [place] [address] 01/26/2025 9:30 AM EDT Office Visit [facility] [address], [place] [phone] Amina Nieves MD [address] [place] [address] documented as of this encounter Visit Diagnoses Not on filedocumented in this encounter Additional Health Concerns Assessment Noted Time PHQ-9 Depression Total Score: 0 09/22/19 24 2:51 PM EDT documented as of this encounter Care Teams Chief Minister Relationship Specialty Start Date End Date Amina Nieves MD [address] [place] [phone] PCP - General Family Medicine 04/07/21 documented as of this encounter
[2024-10-20 09:15] LABS: Anion Gap 13 (12-20); Blood Urea Nitrogen 18 mg/dL (9-16); Calcium 9.8 mg/dL (8.4-10.2); Carbon Dioxide 26 mmol/L (22-29); Chloride 107 mmol/L (96-108); Estimated Glomerular Filt Rate > 60; Glucose Random 203 mg/dL (60-115); Potassium 4.6 mmol/L (3.3-5.1); Sodium 141 mmol/L (135-145)
== END 2024-10-20 07:43 | disposition home or self-care (01) ==
LOC: HO.LAB 07:42
PROVIDERS: PCP General Practice; Visit Provider Internal Medicine Cardiovascular Disease
DX: I05.0 Rheumatic mitral stenosis (principal); I77.810 Thoracic aortic ectasia
CPT/HCPCS: 36415; 80048

== ENCOUNTER 2024-11-01 08:49 | Outpatient (AMB) | payer OTHER, SELFPAY ==
--- NOTE | 2024-11-01 08:53 | MHC.OFFVIS ---
Intake Visit Reasons: follow up/US/urinary concerns(set) Intake Note: Patient is present for a follow up/US/Urinary concerns Imagin09/18/24 Urology Medications: Vitamin b6 Blood Thinner: aspirin Firearms Expert Required: Yes Firearms Expert Name: [id number] Accompanied by: Self / Same As Patient Allergies Penicillins [PENICILLINS] Allergy (Intermediate, Verified 11/01/24 09:52) HIVES fluticasone [From Advair Diskus] Allergy (Mild, Verified 11/01/24 09:52) Unknown potassium Allergy (Mild, Verified 11/01/24 09:52) Unknown salmeterol [From Advair Diskus] Allergy (Mild, Verified 11/01/24 09:52) Unknown Medication List - Last Reconciled 11/01/24 by DALI Graham-FABIOLA amlodipine 5 mg PO DAILY aspirin (Adult Low Dose Aspirin) 81 mg PO DAILY blood sugar diagnostic (FreeStyle Lite Strips) As directed calcium carbonate-vitamin D3 500 mg-5 mcg (200 unit) (Oyster Shell Calcium-Vitamin D3) 1 tab PO DAILY carvedilol 12.5 mg PO BID cholecalciferol (vitamin D3) 50 mcg PO DAILY cyanocobalamin (vitamin B-12) ER (Vitamin B-12 ER) 1,000 mcg PO QAM dapagliflozin propanediol (Farxiga) 10 mg PO DAILY furosemide 20 mg PO DAILY gabapentin 100 mg PO BID irbesartan 300 mg PO DAILY isosorbide mononitrate ER 30 mg PO DAILY lancets (TRUEplus Lancets) As directed metformin ER 1,000 mg PO montelukast 10 mg PO DAILY pyridoxine (vitamin B6) 100 mg PO DAILY 90 days rosuvastatin 10 mg PO DAILY HPI Comments Details: Karon is a pleasant 69 year old Chinese speaking patient of Dr. Nieves who was accompanied by her family member at today's office visit. She has a past medical history of irritable bowel syndrome, TERENCE, obesity, GERD, nephrolithiasis, osteoarthritis, non alcoholic fatty liver disease, diverticulosis, and type 2 DM. She presents to the office today for a follow up of her nephrolthiaisis. In discussion with the patient today she reports noting since her last office visit here she has been experiencing intermittent episodes of right-sided middle to lower abdominal pain. She reports these episodes to be infrequent and denies any associated urinary symptoms while experiencing this discomfort. Recent renal imaging results reviewed with the patient today. 10/03 KUB with no suspicious calcifications were identified. 10/03 renal ultrasound with no hydronephrosis, renal calculi, or masses noted bilaterally. We discussed differential diagnosis cysts in relation to intermittent discomfort patient has been experiencing. Unable to obtain urine for urinalysis today she otherwise denies any bothersome urinary issues. She denies urinary urgency, urinary frequency, incontinence, nocturia, hematuria, dysuria, foul smelling urine, changes to urinary stream, flank pain, fever, and or chills. She is happy with her current voiding parameters. We discussed importance of hydration relation to nephrolithiasis as well as overall health and well being. Will continue with surveillance monitoring at this time. She otherwise offers no issues or concerns at this time. Discussion Notes The patient was informed that recent imaging studies, including kidney ultrasound and X-ray, returned normal findings, showing no presence of kidney stones or blockages. There was a discussion of right-sided abdominal pain, with emphasis that the pain is not likely related to nephrolithiasis, as confirmed by imaging. I reiterated that there are multiple potential causes for the abdominal pain, and advised follow-up with primary care to explore non-urological causes if symptoms continue. We discussed the importance of monitoring for any urinary symptoms that could suggest an infection or obstruction. Follow-up in 6 months was advised unless symptoms change or worsen, at which point the patient should contact me sooner. Plan The patient's normal imaging suggests her abdominal pain is not related to kidney stones. I have recommended maintaining hydration and following up with her primary care provider to explore other potential causes of pain if symptoms continue and or worsen. A follow-up with me is scheduled for six months unless changes occur requiring earlier evaluation. No urological treatments are indicated at this time, but continued observation and periodic assessment will ensure any emerging issues are addressed promptly. [facility] Medical History Renal calculi Irritable bowel syndrome Microscopic hematuria Eczema GERD (gastroesophageal reflux disease) Bursitis of heel Achilles tendinitis Juvenile xanthogranuloma Pilar cysts Hypercholesterolemia Kidney stones Osteoarthritis of right knee Osteoarthritis of left knee Hypertension Diabetes mellitus Surgical History History of surgery Hx of total knee arthroplasty (~2017) History of tubal ligation Social History Household Members: None Housing: Apartment Alcohol intake: never Patient Tobacco Use Status: Never used Tobacco Current occupational status: disabled Female Reproductive History Menstrual Age of Menarche: 13 Review of Systems Const Reports as per HPI Eyes Reports no additional complaints ENT Reports no additional complaints Card Reports no additional complaints Resp Reports no additional complaints GI Reports no additional complaints Reports as per HPI Musc Reports no additional complaints Neuro Reports no additional complaints Psych Reports no additional complaints Endo Reports as per HPI Óscar/Lymph Reports no additional complaints Aller/Immun Reports no additional complaints Physical Exam Const General: cooperative, healthy appearing, comfortable, no acute distress, well developed, alert and awake Nutritional Appearance: overweight Orientation/consciousness: patient oriented x3 Limitations: ambulation with cane HEENT Head: Yes normal to inspection, Yes normocephalic and Yes atraumatic Ears: hearing grossly normal bilaterally Eyes General: appearance normal, both eyes and all related structures Neck Neck: Yes normal visual inspection and Yes trachea midline Chest Chest palpation & inspection: normal inspection of the chest Resp Effort & Inspection: normal respiratory effort and able to speak in complete sentences Cardio Rate: regular rate Skin General skin exam: no rashes or lesions noted Neuro General: patient oriented x3 Extrem General: Yes normal to inspection Psych Appearance: grossly normal and well kempt Mental Status: mental status grossly normal Speech and movement: Normal speech and movement present and Clear speech present Affect: normal affect Attitude: cooperative Thought process: Normal thought process present Thought content: Normal thought content present Insight: Fair insight present (Psych) Judgement: Fair judgement present (Psych) Results AMB Urinalysis, Automated UA Leukoctes 0 Cindy/uL Last Edit by Frannie Jordan on 11/01/24 09:20 UA Nitrite Negative Last Edit by Frannie Jordan on 11/01/24 09:20 UA Urobilinogen 0.2 mg/dL Last Edit by Frannie Jordan on 11/01/24 09:20 UA Protein 15 mg/dL Last Edit by Frannie Jordan on 11/01/24 09:20 UA pH 6.0 Last Edit by Frannie Jordan on 11/01/24 09:20 UA Blood 0 Bridger/uL Last Edit by Frannie Jordan on 11/01/24 09:20 UA Specific [place] 1.015 Last Edit by Frannie Jordan on 11/01/24 09:20 UA Ketone Negative Last Edit by Frannie Jordan on 11/01/24 09:20 UA Bilirubin 0 mg/dL Last Edit by Frannie Jordan on 11/01/24 09:20 UA Glucose 1000 mg/dL Last Edit by Frannie Jordan on 11/01/24 09:20 Results Reviewed Results Reviewed: Laboratory Last Values Urine pH (Auto) 6.0 11/01/24 09:12 Specific [place] (Auto) 1.015 11/01/24 09:12 Urine Protein (Auto) 15 mg/dL 11/01/24 09:12 Glucose (UA)(Auto) 1000 mg/dL 11/01/24 09:12 Urine Ketones (Auto) Negative 11/01/24 09:12 Urine Blood (Auto) 0 Bridger/uL 11/01/24 09:12 Urine Nitrite (Auto) Negative 11/01/24 09:12 Urine Bilirubin (Auto) 0 mg/dL 11/01/24 09:12 Urine Urobilinogen (Auto) 0.2 mg/dL 11/01/24 09:12 Leukocyte Esterase (Auto) 0 Cindy/uL 11/01/24 09:12 Date of Service: 09/18/24 Procedure(s): XR KUB FINDINGS: Two supine views of the abdomen are submitted. The bowel gas pattern is unremarkable, without evidence of mechanical obstruction. There are vascular calcifications in the left upper quadrant and pelvis. No abnormal calcifications overlie the renal shadows. There are no abnormal soft tissue masses. There is degenerative disc disease of the spine. IMPRESSION: No suspicious calcifications are identified.- Date of Service: 09/18/24 Procedure(s): US renal BI Findings: Right kidney normal size and echotexture, 10.4 cm length. No hydronephrosis calculus or mass. Normal color flow. Left kidney normal size and echotexture, 12.6 cm length. No hydronephrosis calculus or mass. Normal color flow. Impression: 1. Normal renal ultrasound Assessment & Plan Assessment & Plan (1) Renal calculi: Code(s): N20.0 - Calculus of kidney Category: Medical Plan Unable to obtain urine for urinalysis as patient unable to void. Recent ultrasound and KUB results reviewed with the patient today; as noted above. We discussed importance of adequate hydration relation to nephrolithiasis as well as overall health and well-being. Continue vitamin B6. Continue adding 1 oz of lemon juice to water daily. We discussed potential causes of right-sided abdominal pain she is experiencing; we discussed follow-up with PCP and or medical personnel if symptoms continue and or worsen. She denies any bothersome urinary issues or concerns. She reports be happy with current voiding parameters. Will obtain renal ultrasound in 6 months Follow-up in 6 months with imaging to be completed prior; or sooner with any issues, concerns, and or questions. Orders: Orders AMB Post Void Residual by ultrasound Today R35.0 - Frequency of micturition US renal BI 6 Months N20.0 - Calculus of kidney AMB Urinalysis Automated Today Z13.9 - Encounter for screening, unspecified Patient Instructions: The patient had an opportunity to ask questions regarding the treatment plan. All questions were answered. Physical exam, labs, and imaging were discussed and reviewed in detail. As well as risks, benefits, and discussion of treatment choices. No major barriers to understanding were identified. The patient expressed understanding and agreement with the above treatment plan. The patient was made aware they should contact our office by phone for worsening of their current condition, the appearance of new symptoms, or with any questions or concerns. Compliance is encouraged with any medications and follow up testing that is ordered. It is a privilege to be allowed the opportunity to participate in? your urological care.? Again, if you have any questions or concerns If you have any questions or concerns please do not hesitate to contact me. The office is [phone]. This note is constructed using voice recognition software. While every effort has been made to ensure accuracy marine engineering professor errors may have been included. Yours sincerely, MOSES Graham Coding Level of Care Code Est Pt Level 3 (06503) Complex EM visit Add On G2211 Diagnoses Renal calculi N20.0
--- OUTSIDE RECORDS SUMMARY | 2024-11-01 09:20 | XMS_ITS | Clinical Summary ---
Demographics Address [address] [place] [address] [address] [place] [address] Work Phone Mobile Phone Home Phone Preferred Language es Marital Status Single Jehovah'S Witness Affiliation Unknown Race Other Race Ethnic Group or Author Organization [employer] Address [address] [place] [address] 7[address] [place] [address] Care Team Providers Care Public Address System Operator Name Role Phone Amina Nieves MD Primary Care Provider [phone] Allergies Active Allergy Reactions Criticality Noted Date Comments Amoxicillin Unknown 05/27/2022 Penicillin G 05/27/2022 Other reaction(s): Unknown Other reaction(s): Unknown Penicillin V 08/19/2010 Other reaction(s): unspecified Penicillins 03/12/2023 Other reaction(s): hives Medications Skin Protectants, Misc. (eucerin) cream Apply 1 application topically in the morning, at noon, in the evening, and at bedtime. 021 Active simethicone (Mylicon) 125 MG chewable tablet Chew 125 mg in the morning, at noon, in the evening, and at bedtime. 022 Active omeprazole (PriLOSEC) [address] capsule Take 1 capsule by mouth at bed time. Active isosorbide mononitrate ER (Imdur) 30 MG 24 hr tablet Take 30 mg by mouth in the morning. 022 Active Menthol-Methyl Salicylate (Muscle Rub) 10-15 % creamIndications:N romi pain Apply 1 application topically if needed in the morning and at bedtime (pain). 85 g 3 023 Active Ventolin HFA 108 (90 Base) MCG/ACT inhaler Inhale 2 puffs Every 4-6 hours as needed for wheezing or shortness of breath. 18 g 2 023 Active acetaminophen (Tylenol) 325 MG tablet ANGELA 3 TABLETAS POR LA BOCA CADA 6 HORAS Active Bisacodyl EC 5 MG EC tablet Take 5 mg by mouth in the morning. Active Senna-Time 8.6 MG tablet ANGELA 1 TABLETA POR LA BOCA CADA MÓNICA A LA HORA DE DORMIR Active Mljonzn-Uxhzefc-Ho thyl Elvin (Salonpas) 3.1-6-10 % patch APPLY 1 TO 2 PATCHES TOPICALLY TO SKIN, LEAVE ON FOR 12 HOURS AND OFF FOR 12 HOURS DIRECTED NEEDED FOR PAIN 60 patch 2 023 Active magnesium oxide (Mag-Ox) 400 (240 Mg) MG tabletIndications: Muscle cramp TAKE 1 TABLET BY MOUTH EVERY DAY 90 tablet 3 Active Neomycin-Polymyxin -HC 1 % solution Administer 4 drops into affected ear(s) 4 times daily. 10 mL Active albuterol (2.5 MG/3ML) 0.083% nebulizer solution [...] neuropathy, without long-term current use of insulin ([facility]) TAKE 1 TABLET BY MOUTH EVERY MORNING 90 tablet 3 Active nystatin (Mycostatin) 469805 UNIT/GM powderIndications: Skin candidiasis APPLY TO THE AFFECTED AREA(S) TWICE DAILY UNDER DEL ABDOMEN AND BETWEEN DE LOS THIGHS 120 g 2 Active lidocaine (Lidoderm) 5 % patchIndications:N romi pain, musculoskeletal Apply 1 patch topically Once per day. Remove & discard patch within 12 hours or as directed by MD. 60 patch 2 Active fluticasone furoate (Arnuity Ellipta) 200 MCG/ACT inhaler INHALE 1 PUFF BY MOUTH EVERY DAY AT THE SAME TIME RINSE MOUTH AFTER USING 30 each 3 Active fluticasone (Flonase) 50 MCG/ACT nasal spray INSTILL 1 SPRAY IN EACH NOSTRIL TWICE DAILY 16 g 3 Active Aspirin EC Adult Low Dose 81 MG EC tabletIndications: Type 2 diabetes mellitus with diabetic neuropathy, unspecified ([facility]) TAKE 1 TABLET BY MOUTH EVERY MORNING 90 tablet 3 025 Active montelukast (Singulair) 10 MG tabletIndications: Allergic rhinitis, unspecified seasonality, unspecified trigger TAKE 1 TABLET BY MOUTH EVERY MORNING FOR ALLERGIES 90 tablet 3 025 Active Blood Glucose Monitoring Suppl (FreeStyle Smilax Lite) w/Device kitIndications:Typ e 2 diabetes mellitus with diabetic neuropathy, without long-term current use of insulin ([facility]) Use to test blood sugar two times daily 1 kit 025 Active meclizine (Antivert) 25 MG tabletIndications: Dizziness TAKE 1 TABLET BY MOUTH THREE TIMES DAILY NEEDED FOR DIZZINESS 60 tablet 3 025 Active cyclobenzaprine (Flexeril) 5 MG tabletIndications: Leg cramps TAKE 1 TABLET BY MOUTH AT BEDTIME NEEDED FOR CRAMPS 30 tablet 2 025 Active loratadine (Claritin) 10 MG tablet Take 1 tablet (10 mg) by mouth Once per day. 90 tablet 3 025 2025 Active ofloxacin (Ocuflox) 0.3 % ophthalmic solution Active prednisoLONE acetate (Pred-Forte) 1 % ophthalmic suspension Active clobetasol (Temovate) 0.05 % ointment Apply topically 2 times daily. 30 g 3 025 Active polyethylene glycol, PEG, 3350 (Miralax) 17 g packet Take 17 g by mouth if needed each day. 022 2024 Discontinued(T herapy completed) omeprazole (PriLOSEC) [address] capsule Take 40 mg by mouth in the morning. 023 2024 Discontinued(T herapy completed) betamethasone dipropionate (Diprolene) 0.05 % ointmentIndication s:Rash APPLY TOPICALLY TO AFFECTED AREA(S) EVERY OTHER DAY NEEDED FOR IRRITATION 15 g 3 023 2024 Discontinued(T herapy completed) Diclofenac Sodium 1 % gelIndications:Kasia n in both feet APPLY 2 GRAMS TOPICALLY TO FEET UP TO THREE TIMES DAILY 100 g 2 023 2024 Discontinued(D uplicate order (will not trigger notification to Pharmacy)) oxyCODONE (Roxicodone) 5 MG immediate release tablet ANGELA 1 TABLETA POR LA BOCA CADA 6 HORAS CUANDO SEA NECESARIO PARA EL DOLOR 023 2024 Discontinued(T herapy completed) loratadine (Claritin) 10 MG tablet Take 1 tablet (10 mg) by mouth in the morning. 90 tablet 3 023 2024 Discontinued(R eorder (will not trigger notification to Pharmacy)) meclizine (Antivert) 25 MG tabletIndications: Dizziness TAKE 1 TABLET BY MOUTH THREE TIMES DAILY NEEDED FOR DIZZINESS 60 tablet 3 024 2024 Discontinued cyclobenzaprine (Flexeril) 5 MG tabletIndications: Leg cramps TAKE 1 TABLET BY MOUTH AT BEDTIME NEEDED FOR CRAMPS 30 tablet 2 025 2024 Discontinued miconazole (Micotin) 2 % vaginal creamIndications:V aginal itching Insert 1 applicator into the vagina at bedtime for 7 days. 45 g 025 2024 Active Problems Problem Noted Date Diagnosed Date Pre-op exam 10/11/2024 Endometrial cancer 12/20/2023 Assessment & Plan (12/23/2023 2:30 PM EDT): [facility] embedded firmware engineer/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 Ying 01/2023 - referred to [facility] by Dr. Ying with Dr. Rodriguez at [facility] embedded firmware engineer Oncology on 01/14/2023 at 10:00. -CT scan [...] asthma 05/06/2015 Diabetes 05/06/2015 Assessment & Plan (10/22/2024 4:55 PM EDT): A1C 9.4, she is cleared to proceed for cataract surgery under MAC anesthesia without further risk stratification. Continue to emphasize healthy eating for glucose control Recommend Trulicity for weight loss and better A1C control Recommend insulin for better A1C control She declines due to fear of needles She would like to work on her diet, and anxiety related eating Continue annual dental follow-up BRIGHT 04/2024 no DM retinopathy Foot exam R foot with loss of protective sensation in two places, sees podiatry Assessment & Plan (05/25/2024 9:36 AM EST): [...] Encounters Date Type Department Care Team Description 10/26/[address] [phone] Amina Nieves MD call back needed 10/26/[address] [address] Amina Nieves MD 10/25/2024 Orders Only [address] [address] Amina Nieves MD HTN (hypertension) (Primary Dx) 10/25/2024 Orders Only [address] [address] Amina Nieves MD 10/20/2024 10:30 AM EDT Office Visit [address] [address] Amina Nieves MD Type 2 diabetes mellitus with diabetic neuropathy, without long-term current use of insulin (CMS/HCC) (Primary Dx); Endometrial cancer (CMS/HCC); Dietary counseling; Exercise counseling; Class 3 severe obesity with serious comorbidity and body mass index (BMI) of 45.0 to 49.9 in adult, unspecified obesity type; Ascending aorta dilatation (CMS/HCC); Vaginal itching; Primary hypertension 10/20/2024 Travel 10/18/2024 Refill [facility] [address] [place] [address] Amina Nieves MD Leg cramps 10/17/[address] [address] Jojo Nieto, VERÓNICA 10/16/[address] [address] Pasha Alas [place] Faxed to surgeon 10/16/2024 Refill [facility] [address] [place] [address] Amina Nieves MD Dizziness 10/12/2024 Refill [facility] [address] [place] [phone] Amina Nieves MD Type 2 diabetes mellitus with diabetic neuropathy, without long-term current use of insulin ([facility]) 10/11/2024 10:00 AM EDT Office Visit [facility] [address] [place] [phone] Xiomy Daigle FNP Pre-op exam (Primary Dx); Type 2 diabetes mellitus with diabetic neuropathy, without long-term current use of insulin ([facility]); Primary hypertension; Mild intermittent asthma, unspecified whether complicated; Obstructive sleep apnea 10/11/2024 Travel 10/10/2024 Orders Only GENERIC EXTERNAL DATA DEPARTMENT Provider, Generic External Data 10/06/2024 Telephone [facility] [address] [place] [phone] Amina Nieves MD Pre-op Exam 09/20/2024 Refill [facility] [address] [place] [phone] Amina Nieves MD Type 2 diabetes mellitus with diabetic neuropathy, unspecified ([facility]); Allergic rhinitis, unspecified seasonality, unspecified trigger 09/20/2024 Refill [facility] [address] [place] [phone] Kapil Blackman MD Allergic rhinitis, unspecified seasonality, unspecified trigger 09/18/2024 Orders Only [facility] External Provider, [facility] 09/15/2024 Refill [facility] [address] [address] Amina Nieves MD 08/16/2024 8:40 AM EST Office Visit [facility] [address] [phone] Pat Carson NP Acute nonintractable headache, unspecified [...] Date Recorded Patient Health Questionnaire-9 Score 0 10/20/2024 Patient Health Questionnaire-9 Score 0 10/20/2024 Last PHQ-9: Questionnaire Data Not on file 0 10/20/2024 Housing Stability Answer Date Recorded What is [...] Date Recorded Patient Health Questionnaire-2 Score 0 10/20/2024 Internet Access Answer Date Recorded Internet Access [...] Sign Reading Time Taken Comments Blood Pressure 145/68 10/20/2024 10:23 AM EDT Pulse 92 10/20/2024 10:23 AM EDT Temperature 36 ??C (96.8 ??F) 10/20/2024 10:23 AM EDT Respiratory Rate 20 10/20/2024 10:23 AM EDT Oxygen Saturation 98% 08/16/2024 8:48 AM EST Inhaled Oxygen Concentration - - Weight 106 kg (234 lb 6.4 oz) 10/20/2024 10:23 A M EDT Height 149.9 cm (4' 11 ) 10/20/2024 10:23 AM EDT Body Mass Index 47.34 10/20/2024 10:23 AM EDT Plan of Treatment Upcoming Encounters Date Type Department Care Team ([facility] st Contact Info) Description 11/02/2024 10:30 AM EDT Medication Management [facility] [address] [place] [phone] 01/26/2025 9:30 AM EDT Office Visit [facility] [address] [place] [address] Amina Nieves MD [address] [place] [address] Health Maintenance Due Date Last Done Comments CT Colonography 1955 FIT DNA/Cologuard 1955 FIT 1955 FOBT 1955 Sigmoidoscopy 1955 RSV Patients and Patients Aged 60 years or older (1 - Risk 60-74 years 1-dose series) 2013 COVID-19 Vaccine ( season) 2024 02/25/2022, 12/30/2020, 12/02/2020 Colonoscopy 10/17/2024 10/18/2019 Mammogram 12/21/2024 12/22/2023, 10/11, 05/21/2021, Additional history exists Diabetes: Hemoglobin A1C 01/09/2025 025, 05/25/2024, 11/02/2023, Additional history exists Colorectal Cancer Screening 04/11/2025 Postponed from 1955 (Other Medical Reasons) Diabetes: Foot Exam 05/25/2025 05/25/2024, 12/18/2022, 12/18/2022 Diabetes: Urine Protein Screening 05/25/2025 05/25/2024, 06/23/2022, 03/19/2022, Additional history exists Lipid Panel 10/10/2025 10/10/2024, 05/12, 06/18/2023, Additional history exists Alcohol/Substance Use Screening 10/11/2025 10/11/2024 SDOH Screening 10/11/2025 10/11/2024 Depression Screening 10/20/2025 10/20/2024, 10/21/19 Tobacco Screening 10/20/2025 10/20/2024 Eye Exam 05/05/2026 05/05/2024 DTaP/Tdap/Td Vaccines (3 - Td or Tdap) [...] Name Priority Date/Time Associated Diagnosis Comments POCT URINALYSIS DIPSTICK Routine 10/20/2024 12:10 PM EDT Vaginal itching POCT GLUCOSE Routine 10/20/2024 10:25 AM EDT Type 2 diabetes mellitus with diabetic neuropathy, without long-term current use of insulin ([facility]) POCT GLUCOSE Routine 10/11/2024 10:24 AM EDT Type 2 diabetes mellitus with diabetic neuropathy, without long-term current use of insulin ([facility]) METHYLMALONIC ACID Routine 10/10/2024 7: 54 AM [...] 2 VIEWS Routine 09/18/2024 8:04 AM EDT HEPATITIS C AB W/REFL TO HCV RNA, [...] Recently Relevant to Health Maintenance Results * POCT Urinalysis (10/20/2024 12:10 PM EDT) Color, UA Yellow Clarity, UA Clear Glucose, UA Negative Bilirubin, UA Negative Ketones, UA Negative Spec Grav, UA 1.020 Blood, UA Negative Negative, None Detected pH, UA 5.5 Protein, UA Negative Urobilinogen, UA 0.2 Leukocytes, UA Trace Negative, Rare, Trace Nitrite, UA Negative Negative, None Detected Appearance, UA clear QC Media Lot # [id number] Lot# Expiration Date Urine 10/20/2024 12:1 0 PM EDT Amina Nieves MD POINT OF CARE TEST ENTER/EDIT ORDERABLES Final Result * (ABNORMAL) POCT Glucose (10/20/2024 10:25 AM EDT) Only the most recent of2 resultswithin the time period is included. Glucose Blood, POC 282(A) 60 - 200 mg/dL [employer] Lot # [id number] Lot# Expiration Date Blood Capillary blood specimen / Unknown 10/20/2024 10:25 AM EDT Amina Nieves MD POINT OF CARE TEST ENTER/EDIT ORDERABLES Final Result * Vitamin D, 25-Hydroxy, Total, Immunoassay (10/10/2024 7:54 AM EDT) Vitamin D 25-OH Total 46.8 >30 ng/mL [facility] Comment: Health Based Reference Values*< 20 ??ng/mL ??Lotujrziu75-44 ng/mL ??Insufficient> 30 ??ng/mL ??Sufficient*Delmis LEVINE. N [...] ORDERAB LES Final Result Performing Organization Address [facility] Co de Phone Number [facility] [address] [place] [address] [phone] * (ABNORMAL) Vitamin B12 (Cobalamin) and Folate Panel, Serum (10/10/2024 7:54 AM EDT) Vitamin B12 918(H) 200 - 900 pg/mL [facility] Comment:NORMAL 200-900 PG/ML INDETERMINATE 160-199 PG/ML DEFICIENT < 160 PG/ML Folate 10.1 > or = 4.0 ng/mL [facility] Comment:Reference Values:> o r = 4.0 ng/mL< 4.0 ng/mL suggests folate deficiency Methotrexate, aminopterin and folinic acid(leucovorin) are chemotherapeutic agents whose molecularstructures are similar to folate; therefore, the Architectfolate assay cannot be used for patients using these drugs. 10/10/2024 7:54 AM EDT 10/10/2024 7:54 AM EDT [email or web address] External Data Provider LAB BLOOD ORDERAB LES Final Result Performing Organization Address [facility] Co de Phone Number [facility] [address] [place] [address] [phone] * (ABNORMAL) TSH with Reflex to Free T4 (10/10/2024 7:54 AM EDT) TSH reflex Free T4 5.22(H) 0.32 - 4.0 uIU/mL [facility] 10/10/2024 7:54 AM EDT 10/10/2024 7:54 AM EDT Generic External Data Provider LAB BLOOD ORDERAB LES Final Result Performing Organization Address [facility] Co de Phone Number [facility] [address] [place] [address] [phone] * (ABNORMAL) Lipid Panel with Reflex to Direct LDL (10/10/2024 7:54 AM EDT) Triglycerides 248(H) <150 mg/dL [facility] Comment:Desirable Triglyceri de: less than 150 mg/dLBorderline High Triglyceride 150-199 mg/dLHigh Triglyceride: 200-499 mg/dLVery High Triglyceride: greater than or equal to 5OO mg/dL Cholesterol 207(H) <200 mg/dL [facility] Comment:Desirable Cholestero l: less than 200 mg/dLBorderline High Cholesterol: 200-239 mg/dLHigh Cholesterol: greater than 239 mg/dL LDL Cholesterol Calculated 116(H) <100 mg/dL [facility] Comment:Desirable LDL: less than 100 mg/dLNear Optimal/Above Optimal LDL: 110- 129 mg/dLBorderline High LDL: 130-159 mg/dLHigh LDL: 160-189 mg/dLVery High LDL: greater than or equal to 190 mg/dL HDL Cholesterol 42 >40 mg/dL [facility] Comment:Desirable HDL: great er than 40 mg/dL Note: This HDL assay may give artificially low results in patients with liver disease. 10/10/2024 7:54 AM EDT 10/10/2024 7:54 AM EDT us Generic External Data Provider LAB BLOOD ORDERAB LES Final Result Performing Organization Address [facility]/ZIP Co de Phone Number [facility] [address] [place] [address] [phone] * Methylmalonic Acid (10/10/2024 7:54 AM EDT) Methylmalonic Acid 137 69 - 390 nmol/L [facility] Comment: Serum methylmalonic acid (MMA) [...] outcomes,such as neural tube defects and intrauterine growthrestriction.[employer] utilized Multi-Modal Decomposition(MMD) analysis to establish first and second trimester-specific MMA reference intervals in , as givenbelow:MMA, First trimester (<13 wks gestation): 58-167 nmol/LMMA, Second trimester (13-23 wks gestation):63-241 nmol/LThis test was developed and its analytical performancecharacteristics have been determined by [employer]. It has not been cleared or approved by theFDA. This assay has been validated pursuant to the CLIAregulations and is used for clinical purposes.THIS TEST WAS PERFORMED AT:[id number] [place], [place] ??[phone] HULL MD,PHD 10/10/2024 7:54 AM EDT 10/10/2024 7:54 AM EDT us Generic External Data Provider LAB BLOOD ORDERAB LES Final Result [facility] [address] [place] [phone] [phone] * CBC (10/10/2024 7:54 AM EDT) White Blood Count 6.5 4.8 - 10.8 X10*3/uL [facility] Red Blood Count 4.61 4.20 - 5.50 X10*6/uL [facility] Hemoglobin 12.5 12.0 - 16.0 g/dl [facility] Hematocrit 38.5 37.0 - 47.0 % [facility] Mean Corpuscular Volume 83.5 80.0 - 98.0 fL [facility] Mean Corpuscular Hemoglobin 27.1 27.0 - 33.0 pg [facility] Mean Corpuscular HGB Conc 32.5 31.0 - 35.0 g/dl [facility] Red Cell Distribution Width 13.8 11.0 - 16.0 % [facility] Platelet Count 247 160 - 400 X10*3/uL [facility] Mean Platelet Volume 12.0 9.4 - 12.3 fL [facility] NRBC Pct Auto 0.0 0.0 - 0.2 /100WBC [facility] NRBC Abs Auto 0.000 0.0 - 0.012 X10*3/uL [facility] 10/10/2024 7:54 AM EDT 10/10/2024 7:54 AM EDT us Generic External Data Provider LAB BLOOD ORDERAB LES Final Result Performing Organization Address City/[facility]/ZIP Co de Phone Number [facility] [address] [place] [phone] * T4, Free (10/10/2024 7:54 AM EDT) Free T4 (Free Thyroxine) 1.28 0.71 - 1.85 ng/dL [facility] 10/10/2024 7:54 AM EDT 10/10/2024 7:54 AM EDT Generic External Data Provider LAB BLOOD ORDERAB LES Final Result Performing Organization Address City/[facility]/ZIP Co de Phone Number [facility] [address] [place] [phone] * (ABNORMAL) Homocysteine (10/10/2024 7:54 AM EDT) Homocysteine 15.0(A) <10.4 umol/L [facility] Comment:Homocysteine is incr eased by functional deficiency offolate or vitamin B12. Testing for methylmalonic aciddifferentiates between these deficiencies. Other causesof increased homocysteine include renal failure, folateantagonists such as methotrexate and phenytoin, andexposure to nitrous oxide.Isaias Montes, et al., [employer]. 1999;131(5):331-9.THIS TEST WAS PERFORMED AT:[employer] [place] [phone] COREAS MD 10/10/2024 7:54 AM EDT 10/10/2024 7:54 AM EDT us Generic External Data Provider LAB BLOOD ORDERAB LES Final Result Performing Organization Address [facility]/ZIP Co de Phone Number [facility] [address] [place] [phone] * (ABNORMAL) Hemoglobin A1c (10/10/2024 7:54 AM EDT) Hemoglobin A1c 9.4(H) <6.0 % [facility] Comment:Hemoglobin A1C Refer ence Range Adults: 4.8 - 6.0 % Non diabetic: < 6.0 % Goal: < 7.0 %Additional Action Suggested: > 8.0 %Note: Hemoglobin A1c results are invalid for patients with abnormal amounts of HbF. Blood transfusions may impact the HbA1c concentration in the patient sample. Estimated Average Glucose 223 mg/dL [facility] Comment:eAG = Estimated ave rage glucose which is %A1C expressed asaverage glucose, using the formula of the A5Z-XfmlgtlDvvhyhl Glucose study (ADAG), Diabetes Care, Vol.31,#8,2007 10/10/2024 7:54 AM EDT 10/10/2024 7:54 AM EDT us Generic External Data Provider LAB BLOOD ORDERAB LES Final Result Performing Organization Address [facility]/ZIP Co de Phone Number [facility] [address] [place] [phone] * Ferritin (10/10/2024 7:54 AM EDT) Ferritin 97 10 - 250 ng/mL [facility] 10/10/2024 7:54 AM EDT 10/10/2024 7:54 AM EDT us Generic External Data Provider LAB BLOOD ORDERAB LES Final Result [facility] [address] [place] [phone] * (ABNORMAL) Comprehensive Metabolic Panel (10/10/2024 7:54 AM EDT) Pathologist [facility] Sodium 141 135 - 145 mmol/L [facility] Potassium 4.3 3.3 - 5.1 mmol/L [facility] Chloride 104 96 - 108 mmol/L [facility] Carbon Dioxide 29 22 - 29 mmol/L [facility] Anion Gap 12 12 - 20 [facility] Urea Nitrogen (BUN) 20(H) 9 - 16 mg/dL [facility] Creatinine, Serum 0.97 0.5 - 1.4 mg/dL [facility] Estimated Glomerular Filt Rate 57 [facility] Comment:Chronic Kidney Disea se: Estimated GFR < 60 mL/min/1.91f3Urgdix Kidney Disease: Estimated GFR < 15 mL/min/1.73m2 Glucose 206(H) 60 - 115 mg/dL [facility] Calcium 10.1 8.4 - 10.2 mg/dL [facility] Bilirubin, Total 0.7 0.0 - 1.0 mg/dL [facility] Aspartate Amino Transferase 27 5 - 31 U/L [facility] Alanine Aminotransferase 31 0 - 31 U/L [facility] Total Protein 7.3 6.5 - 8.0 g/dL [facility] Albumin Level 4.2 3.5 - 5.0 g/dL [facility] Alkaline Phosphatase 133(H) 39 - 117 U/L [facility] 10/10/2024 7:54 AM EDT 10/10/2024 7:54 AM EDT us Generic External Data Provider LAB BLOOD ORDERAB LES Final Result [facility] [address] [facility] [place] [address] [phone] * US RENAL BI (09/18/2024 9:40 AM EDT) Anatomical Region Laterality Modality Abdomen Ultrasound 09/18/2024 9:40 AM EDT Narrative 09/18/2024 9:42 AM EDT ? [facility] ?[address] ?[place] [address] ? Ultrasound Report ? Signed ? Patient: Karon Nur ?MR#: ?? [id number] ? : 1955 ?Acct:[id number] ? Age/Sex: 69 / F ?ADM Date: 09/18/24 ? Loc: HO.US ? Attending Dr: Lauren LOPES ? Ordering Physician: Lauren Summers ?? Date of Service: 09/18/24 ?? Procedure(s): US renal BI ?? Accession Number(s): [id number] ? cc: Amina Nieves; Lauren Summers ? [...] ?09/18/24 0941 ? DD/ 0940 ? TD/TT: 09/18/24 0940 ? Livestock Commission Agent: ? Procedure Note Donotuseinterpreter, Image - 09/18/[address] [address] Ultrasound Report Signed Patient: Ron Nur#: [id number] : 1955cct:[id number] Age/Sex: 69 / FADM Date: 09/18/24 Loc: HO.US Attending Dr: Lauren TAYLOR Ordering Physician: Lauren Summers Date of Service: 09/18/24 Procedure(s): US renal BI Accession Number(s): [id number] cc: Amina Nieves; Lauren Summers CLINICAL HISTORY: [...] in OV> 09/18/24940 DD/ 9 TD/TT: 09/18/24939 Livestock Commission Agent: us [facility] External Provider IMG US PROCEDURES Edited Result - Final * XR KUB and Upright 2 Views (09/18/2024 8:04 AM EDT) Anatomical Region Laterality Modality Radiographic Jannette ging 09/18/2024 8:04 AM EDT Narrative 09/19/2024 8:49 AM EDT ? [facility] ?[address] ?[place] [address] ?XRay Report ? Signed ? Patient: Adan River,Karon ?MR#: ?? [id number] ? : 1955 ?Acct:[id number] ? Age/Sex: 69 / F ?ADM Date: 09/18/24 ? Loc: HO.US ? Attending Dr: Lauren LOPES ? Ordering Physician: Lauren Summers ?? Date of Service: 09/18/24 ?? Procedure(s): XR KUB ?? Accession Number(s): [id number] ? cc: Amina Nieves; Lauren Summers ? [...] DD/ 0804 ? TD/TT: 09/18/24 0824 ? Livestock Commission Agent: ? Procedure Note Gaetano, Image - 09/19/[address] [address] XRay Report Signed Patient: Adan SwiftpoRon#: [id number] : 3Acct:[id number] Age/Sex: 69 / FADM Date: 09/18/24 Loc: HO.US Attending Dr: Lauren Summers [facility] Ordering Physician: Lauren Summers Date of Service: 09/18/24 Procedure(s): XR KUB Accession Number(s): [id number] cc: Amina Nieves; Lauren Summers EXAMINATION: XR [...] Celso Dumas MD 09/19/2024 08:46 AM EDT RP Dictated By: Celso Dumas MD Signed By: <Electronically signed by Celso Dumas MD in OV> 09/19/24 0846 DD/ 0804 TD/TT: 09/18/24 0824 Livestock Commission Agent: [facility] External Provider IMG XR PROCEDURES Final Result * Albumin, Random Urine W/Creatinine (05/25/2024 9:46 AM EST) Creatinine, Urine 85.32 mg/dL [facility] Microalbumin Urine 23.0 mg/L [facility] Microalbum Creatinine Ratio Ur 26.9 <30 ug/mg cr [facility] Comment:Albumin/Creatinine R atio Reference Ranges: Normal: < 30 ug/mg creatinine Microalbuminuria: 30 - 300 ug/mg creatinineClinical Albuminuria: > 300 ug/mg creatinine Urine (Urine, Random) 05/25/2024 9:46 AM EST 05/25/2024 11:28 AM EST Amina Nieves MD LAB URINE ORDERABLES Final Res ult [facility] [address] [place] [address] [phone] * Hepatitis C Antibody with Reflex to HCV, RNA, Quantitative, Real-Time PCR (05/25/2024 9:46 AM EST) Hepatitis C Antibody Nonreactive Nonreactive [facility] Comment:Antibodies to HCV no t detected; does not exclude early acuteHCV infection. Blood Venous blood specimen / Unknown 05/25/2024 9:46 AM EST 05/25/2024 10:53 AM EST us Amina Nieves MD LAB BLOOD ORDERABLES Final Res ult Performing Organization Address City/[facility] Co de Phone Number [facility] [address] [place] [address] [phone] * BI Mammogram Screening Tomosynthesis Bilateral (12/22/2023 10:05 AM EDT) Anatomical Region Laterality Modality Breast Bilateral Mammography 12/22/2023 10:0 5 AM EDT Narrative 01/20/2024 9:58 AM EDT ? [facility] [place] ? [address] ?[place] [address] ? Mammography Report ? Signed ? Patient: Karon Nur ?MR#: ?? [id number] ? : 1955 ?Acct:[id number] ? Age/Sex: 68 / F ?ADM Date: 06/12/24 ? Loc: HO.MAMMO ? Attending Dr: Amina Nieves MD ? Ordering Physician: Amina Nieves ?Results: 1Negative ? Date of Service: 12/22/23 ?Follow Up: 1 Year From Orig ?? inal Mammogram ? Procedure(s): MM tomosynthesis screening BI ?? Accession Number(s): [id number] ? cc: Amina Nieves ? EXAMINATION: ?? [...] their next mammogram. ? Dictated By: ?Julieta eHlms MD ? Signed By: ?<Electronically signed by Julieta Helms MD in OV> ? 01/20/24 0954 ? DD/ 1005 ? TD/TT: ? Livestock Commission Agent: ? Procedure Note Gaetano, Forrest - 01/20/2024 [facility] [address] [place] [address] Mammography Report Signed Patient: Ron Nur#: [id number] : 1955cct:[id number] Age/Sex: 68 / FADM Date: 12/22/23 Loc: YANELITomasMAMMO Attending Dr: Amina Nieves MD Ordering Physician: Nicole Nievesults: 1Negative Date of Service: 12/22/23Follow Up: 1 Year From Orig inal Mammogram Procedure(s): MM tomosynthesis screening BI Accession Number(s): [id number] cc: Amina Nieves EXAMINATION: MM SCREENING DIGITAL [...] in OV> 01/20/24 0954 DD/ 1005 TD/TT: Livestock Commission Agent: Amina Nieves MD IM BI PROCEDURES Final Result * (ABNORMAL) Hm Colonoscopy (10/18/2019) Colonoscopy Abnormal(A ) Normal Historical Provider HEALTH MAINTENANCE Edited Result - Final from Last 3 Months or Most Recently Relevant to Health Maintenance Insurance Member Subscriber Plan / Payer (Ef fective 2019-Present) Name:Adan Marquise Riverdys Relation to Subscriber:Self Name:Karon Nur Payer ID:Not on file Group ID:[id number] Type:Not on file Address: [address] [employer] (O D-SNP) * Guarantor: Karon Nur Account Type Relation to Patient Date of Phone Billing Address Personal/Family Self [address] [facility] 1 APRYL Cross Care Teams Public Address System Operator Relationship Specialty Start Date End Date Amina Nieves MD [address] [place] [address] PCP - General Family Medicine 04/07/21
--- OUTSIDE RECORDS SUMMARY | 2024-11-01 09:21 | XMS_ITS | Encounter Summary ---
Author Organization [employer] Address [address] [place] [address] 7t [place] [address] Care Team Providers Care Tax Collector Name Role Phone Amina Nieves MD Primary Care Provider [phone] Encounter Details Date Type Department Care Team (Late Contact Info) Description 10/27/2022 Orders Only [facility] [address] [place], [place] [phone] Amian Nieves MD [address] [place], [place] [phone] Vaginal bleeding (Primary Dx); Endometrial thickening on [...] Care Team (Late st Contact Info) Description 11/02/2024 10:30 AM EDT Medication Management [address] [address] 01/26/2025 9:30 AM EDT Office Visit [address] [address] Amina Nieves MD [address] [place] [address] documented as of this encounter Visit Diagnoses Diagnosis Vaginal bleeding- Primary Other specified noninflammatory disorder of vagina Endometrial thickening on ultrasound documented in this encounter Additional Health Concerns Assessment Noted Time PHQ-9 Depression Total Score: 0 09/22/19 23 10:45 AM EDT documented as of this encounter Care Teams Tax Collector Relationship Specialty Start Date End Date Amina Nieves MD [address] [place] [address] PCP - General Family Medicine 04/07/21 documented as of this encounter
--- OUTSIDE RECORDS SUMMARY | 2024-11-01 09:21 | XMS_ITS | Encounter Summary ---
Author Organization [employer] Address [address] [place] [address] 7t [place] [address] Care Team Providers Care Machine Rug Cleaner Name Role Phone Amina Nieves MD Primary Care Provider [phone] Reason for Visit * Reason Comments Med Refill Encounter Details Date Type Department Care Team ([facility] st Contact Info) Description 05/07/2023 Refill [facility] [address] [place], [place] [phone] Amina Nieves MD [address] [place], [place] [phone] Rash Social History Tobacco Use Types Packs/Day [...] Description 11/02/2024 10:30 AM EDT Medication Management [facility] [address] [place] [address] 01/26/2025 9:30 AM EDT Office Visit [facility] [address] [place] [address] Amina Nieves MD [address] [place] [address] documented as of this encounter Visit Diagnoses Diagnosis Rash Rash and other nonspecific skin eruption documented in this encounter Additional Health Concerns Assessment Noted Time PHQ-9 Depression Total Score: 0 09/22/19 23 10:45 AM EDT documented as of this encounter Care Teams Machine Rug Cleaner Relationship Specialty Start Date End Date Amina Nieves MD [address] [place] [address] PCP - General Family Medicine 04/07/21 documented as of this encounter
--- OUTSIDE RECORDS SUMMARY | 2024-11-01 09:21 | XMS_ITS | Encounter Summary ---
Author Organization [employer] Address [address] [place] [address] 7t [place] [address] Care Team Providers Care Pill Packer Name Role Phone Amina Nieves MD Primary Care Provider [phone] Reason for Visit * Reason Comments Med Refill Encounter Details Date Type Department Care Team (Late st Contact Info) Description 01/23/2023 Refill [facility] [address] [place] [phone] Amina Nieves MD [address] [place] [address] Social History Tobacco Use Types Packs/Day Years [...] Description 11/02/2024 10:30 AM EDT Medication Management [facility] [address] [place] [phone] 01/26/2025 9:30 AM EDT Office Visit [facility] [address] [place] [address] Amina Nieves MD [address] [place] [address] documented as of this encounter Visit Diagnoses Not on filedocumented in this encounter Additional Health Concerns Assessment Noted Time PHQ-9 Depression Total Score: 0 09/22/19 23 10:45 AM EDT documented as of this encounter Care Teams Pill Packer Relationship Specialty Start Date End Date Amina Nieves MD [address] [place] [address] PCP - General Family Medicine 04/07/21 documented as of this encounter
--- OUTSIDE RECORDS SUMMARY | 2024-11-01 09:21 | XMS_ITS | Encounter Summary ---
Author Organization [employer] Address [address] [facility] 7t [place] [address] Care Team Providers Care Market Developer Name Role Phone Amina Nieves MD Primary Care Provider [phone] Encounter Details Date Type Department Care Team (Late st Contact Info) Description 10/26/2024 Telephone [facility] [address] [place], [place] [phone] Amina Nieves MD [address] [place], [place] [phone] Social History Tobacco Use Types Packs/Day Years [...] Description 11/02/2024 10:30 AM EDT Medication Management [address] [address] 01/26/2025 9:30 AM EDT Office Visit [facility] [address] [place] [address] Amina Nieves MD [address] [place] [address] documented as of this encounter Visit Diagnoses Not on filedocumented in this encounter Additional Health Concerns Assessment Noted Time PHQ-9 Depression Total Score: 0 10/21/19 25 10:26 AM EDT documented as of this encounter Care Teams Market Developer Relationship Specialty Start Date End Date Amina Nieves MD [address] [place] [address] PCP - General Family Medicine 04/07/21 documented as of this encounter
--- OUTSIDE RECORDS SUMMARY | 2024-11-01 09:21 | XMS_ITS | Patient Health Record ---
Author Organization [facility] Address [address] [place] [address] Care Team Providers Care Sales Management Trainee Name Role Phone Carmen Santiago Primary Care Provider UnavailRisa Toussaint Unavailable [phone] Allergies Allergen (clinical drug ingredient) Drug/Non Drug [...] Immunizations Vaccine Route Administration Date Status Comme [facility] COVID-19 Moderna Vaccine Unknown 12/25/2020 Administered [...] Problem Acquired hammer toe of right foot (0162168295363333 ) Other hammer toe(s) (acquired), right foot (M20.41) Active confirmed Problem Acquired hammer toe of left foot (6177322385810823 ) Other hammer toe(s) (acquired), left foot (M20.42) Active confirmed Problem Polyneuropathy due to type 2 diabetes mellitus (123602915) Type 2 diabetes mellitus with diabetic polyneuropathy (E11.42) Active confirmed Problem 899248032 Hammer toe of right foot (M20.41) Active confirmed Problem 622730317 Neuropathy (G62.9) Active confirmed Problem 80185504 Osteoarthritis o f right ankle and foot (M19.071) Active confirmed Vital Signs Blood pressure diastolic 75 mm Hg 09/13/2024 Height 9if33bf in 09/13/2024 Blood pressure systolic 160 mm Hg 09/13/2024 Weight 235 lbs 09/13/2024 BMI 47.46 kg/m2 09/13/2024 Encounters Encounter Location Date Provider Diagnosis [address] [address] 11/09/2023 Risa Chen Type 2 diabetes mellitus with diabetic polyneuropathy E11.[address] [address] 01/26/2024 Risa Chen Type 2 diabetes mellitus with diabetic polyneuropathy E11.42 ; Neuropathy G62.9 and Neuropathic pain M79.[address] [address] 04/11/2024 Risa Chen Type 2 diabetes mellitus with diabetic polyneuropathy E11.42 and Xerosis of skin L85.[address] [address] 06/30/2024 Risa Chen Type 2 diabetes mellitus with diabetic polyneuropathy E11.42 and Xerosis of skin L85.[address] [address] 09/13/2024 Risa Chen Type 2 diabetes mellitus [...] Details Provider Name:Risa singh, 11/28/2024 10:00:00 AM, [address] [place] [address], [phone], Insurance Providers Payer Name Payer Address Payer Phone Subscriber Number Group Number Insured Name Patient Relationship to Insured Coverage Start Date Coverage End Date [facility] [employer] Claims [address] [place] [id number] Karon Howard Self - patient is the insured Medical (General) History Medical History History ICD Code Arthritis asthma type I diabetes Headaches High blood pressure Cataracts Joint implants/screws Cholesterol Surgical History Surgery Date(Month/Year) cataract removal 06/2024
--- OUTSIDE RECORDS SUMMARY | 2024-11-01 09:21 | XMS_ITS ---
Author Organization [facility] Address [address] [facility] [place] [address] Care Team Providers Care Civil Engineer Helper Name Role Phone Carmen Santiago Primary Care Provider Unavailab Risa Castellanos Unavailable [phone] Allergies Allergen (clinical drug ingredient) Drug/Non Drug [...] other tobacco user? No Vital Signs Height 6jp74wc in 09/13/2024 Weight 235 lbs 09/13/2024 BMI 47.46 kg/m2 09/13/2024 Blood pressure systolic 160 mm Hg 09/14/19 25 Blood pressure diastolic 75 mm Hg 025 Encounters Encounter Location Date Provider Diagnosis [facility] [address] [place] [address] 09/13/2024 Risa Chen Type 2 diabetes mellitus [...] Reason: Provider Name:Risa singh, 11/28/2024 10:00:00 AM, [address] [place] [address], [phone], Procedure Notes * Category Sub-Category Detail Notes [...] instrumentation by the physician of record - 50225 Nail Reduction Nail Reduction (-27) Trimming o [...] * Cheri ARELLANOsDOB: [birth year] (69 yo F)Acc No.[id number]:09/13/2024 Progress Note Patient:?ALEKSEY Karon Provider:?Risa Chen DPM :1955???Age:69 Y???Sex:Female D ate:09/13/2024 Address:[address] [place], [place] [phone] Pcp:Carmen Santiago Subjective: * Chief Complaints: * [...] * Allergies:?Leonid adrian[Allergies Verified] Objective: * Vitals:?Ht: 5mo65tp, Wt:235, BMI:47.46, Shoe size: 8, BP:160/75mm Hg, [...] instrumentation by the physician of record - 40491.?Nail Reduction:?Nail Reduction?(-27) Trimming of all dystrophic nails [...] ING DYSTROPHIC NAILS ANY #, Modifiers: XS 54046 TRIM SKIN LESIONS, OVER 4, Modifiers: XS [...] Chen DPM Date:?11/2024 Generated for Cheryl bundy/Rashard/Pedro on:?11/01/2024 09:20 AM EDT History and Physical Notes * [...]
--- OUTSIDE RECORDS SUMMARY | 2024-11-01 09:21 | XMS_ITS | Encounter Summary ---
Author Organization [employer] Address [address] [facility] 7t [place] [address] Care Team Providers Care Finisher Fine Diamond Dies Name Role Phone Amina Nieves MD Primary Care Provider [phone] Reason for Visit * Reason Comments Med Refill Encounter Details Date Type Department Care Team ([facility] st Contact Info) Description 06/01/2024 Refill [facility] [address] [place], [place] [phone] Jhoana Worrell DO [address] [place], [place] [phone] Social History Tobacco Use Types Packs/Day Years [...] 11/02/2024 10:30 AM EDT Medication Management [address] [address] 01/26/2025 9:30 AM EDT Office Visit [address] [address] Amina Nieves MD [address] [place] [address] documented as of this encounter Visit Diagnoses Not on filedocumented in this encounter Additional Health Concerns Assessment Noted Time PHQ-9 Depression Total Score: 0 09/22/19 24 2:51 PM EDT documented as of this encounter Care Teams Finisher Fine Diamond Dies Relationship Specialty Start Date End Date Amina Nieves MD [address] [place] [address] PCP - General Family Medicine 04/07/21 documented as of this encounter
--- OUTSIDE RECORDS SUMMARY | 2024-11-01 09:21 | XMS_ITS | Encounter Summary ---
Author Organization [employer] Address [address] [place] [address] 7t [place] [address] Care Team Providers Care Sourcing Associate Name Role Phone Amina Nieves MD Primary Care Provider [phone] Reason for Referral * Consultation (Routine) - Authorized Specialty Diagnoses / Procedures Referred By Contrahat t Referred To Contact Pharmacy Diagnoses HTN (hypertension) Amina Nieves MD [address] [place] [address] Phone: tel: fax: Referral ID Status Reason Start Date Expiration Date Visits Requested Visits Authorized [id number] Authorized Continuity of Care 10/25/2024 10/25/2025 6 6 Encounter Details Date Type Department Care Team (Late st Contact Info) Description 10/25/2024 Orders Only [facility] [address] [place], [place] [phone] Amina Nieves MD [address] [place], [place] [phone] HTN (hypertension) (Primary Dx) Social History Tobacco Use Types Packs/Day Years [...] your housing situation today? I have tim sing 10/11/[address] you li [...] Description 11/02/2024 10:30 AM EDT Medication Management [facility] [address] [place] [address] 01/26/2025 9:30 AM EDT Office Visit [facility] [address] [place] [address] Amina Nieves MD [address] [place] [address] Scheduled Referrals Name Type Priority Associated Diagnoses Orde r Schedule Referral to Pharmacy [place] Outpatient Referral Routine HTN (hypertension) Ordered: 10/25/2024 documented as of this encounter Visit Diagnoses Diagnosis HTN (hypertension)- Primary Unspecified essential hypertension documented in this encounter Additional Health Concerns Assessment Noted Time PHQ-9 Depression Total Score: 0 10/21/19 25 10:26 AM EDT documented as of this encounter Care Teams Sourcing Associate Relationship Specialty Start Date End Date Amina Nieves MD [address] [place] [address] PCP - General Family Medicine 04/07/21 documented as of this encounter
--- OUTSIDE RECORDS SUMMARY | 2024-11-01 09:21 | XMS_ITS | Encounter Summary ---
Author Organization [employer] Address [address] [facility] 7t [place] [address] Care Team Providers Care Cad Administrator Name Role Phone Amina Nieves MD Primary Care Provider [phone] Encounter Details Date Type Department Care Team (Late st Contact Info) Description 01/26/2024 Orders Only [facility] [address] [place], [place] [phone] Amina Nieves MD [address] [place], [place] [phone] Social History Tobacco Use Types Packs/Day Years [...] Description 11/02/2024 10:30 AM EDT Medication Management [facility] [address] [place] [address] 01/26/2025 9:30 AM EDT Office Visit [address] [address] Amina Nieves MD [address] [place] [address] documented as of this encounter Visit Diagnoses Not on filedocumented in this encounter Additional Health Concerns Assessment Noted Time PHQ-9 Depression Total Score: 0 09/22/19 24 2:51 PM EDT documented as of this encounter Care Teams Cad Administrator Relationship Specialty Start Date End Date Amina Neives MD [address] [place] [address] PCP - General Family Medicine 04/07/21 documented as of this encounter
--- OUTSIDE RECORDS SUMMARY | 2024-11-01 09:21 | XMS_ITS ---
Author Organization [facility] Address [address] [facility] [place] [address] Care Team Providers Care Webmethods Architect Name Role Phone Carmen Santiago Primary Care Provider Unavailab Risa Castellanos Unavailable [phone] Allergies Allergen (clinical drug ingredient) Drug/Non Drug Allergy documented on EMR Reaction Allergy Type Onset Date Status amoxicillin Amoxicillin Unknown Drug Allergy Act prath Penicillin Unknown Drug Allergy Active REASON FOR [...] 024 Encounters Encounter Location Date Provider Diagnosis [facility] [address] [address] 04/11/2024 Risa Chen Type 2 diabetes mellitus [...] Reason: Provider Name:Risa singh, 11/28/2024 10:00:00 AM, [address] [place] [address], [phone], Procedure Notes * Category Sub-Category Detail Notes Keratoma Treatment Parring or Cutting o f Benign Hyperkeratotic Lesion(s) (-57) More than 4 Lesions - The Benign hyperkeratotic lesions, as described above were pared, and/or cut utilizing a sterile 15 blade, tissue nippers, and/or dremel - 30682 Nail Reduction Nail Reduction Trimming of dyst rophic nails performed to reduce/remove overall nail length and girth, by manual and electrical means with use of a nail nipper and/or dremel, to more viable healthy nail plate or bed tissue 6-10 (G0127) Progress Notes * Cheri ARELLANOsDOB: [birth year] (68 yo F)Acc No.[id number]:04/11/2024 Progress Note Patient:?Karon Arellano Provider:?Risa Chen DPM :1955???Age:68 Y???Sex:Female D ate:04/11/2024 Address:[address] [place] [address], [address] [facility], [facility] [place] Pcp:Carmen Santiago Subjective: * Chief Complaints: * [...] 15 blade, tissue nippers, and/or dremel - 69900.?Nail Reduction:?Nail Reduction?Trimming of dystrophic nails performed to reduce/remove overall nail length and girth, by manual and electrical means with use of a nail nipper and/or dremel, to more viable healthy nail plate or bed tissue 6-10 (G0127).? * Procedure Codes:?G0127 ASHLEIGH ING DYSTROPHIC NAILS ANY #, Modifiers: XS 74114 TRIM SKIN LESIONS, OVER 4, Modifiers: XS [...] Chen DPM Date:?07/2023 Generated for Cheryl bundy/Rashard/Pedro on:?11/01/2024 09:20 AM [...]
--- OUTSIDE RECORDS SUMMARY | 2024-11-01 09:21 | XMS_ITS ---
Author Organization [facility] Address [address] [facility] [place] [address] Care Team Providers Care Weight Engineer Name Role Phone Carmen Santiago Primary Care Provider Unavailab Risa Castellanos Unavailable [phone] Allergies Allergen (clinical drug ingredient) Drug/Non Drug [...] 024 Encounters Encounter Location Date Provider Diagnosis [facility] [address] [address] 06/30/2024 Risa Chen Type 2 diabetes mellitus [...] Reason: Provider Name:Risa singh, 11/28/2024 10:00:00 AM, [address] [place] [address], [address], Procedure Notes * Category Sub-Category Detail Notes [...] instrumentation by the physician of record - 25671 Nail Reduction Nail Reduction Trimming of dyst rophic nails performed to reduce/remove overall nail length and girth, by manual and electrical means with use of a nail nipper and/or dremel, to more viable healthy nail plate or bed tissue 6-10 (G0127) Progress Notes * Cheri ARELLANOsDOB: [birth year] (69 yo F)Acc No.[id number]:06/30/2024 Progress Note Patient:?Karon ARELLANO Provider:?Risa Chen DPM :1955???Age:69 Y???Sex:Female D ate:06/30/2024 Address:[address] [place] [address], [facility] Pcp:Carmen Santiago Subjective: * Chief Complaints: * [...] instrumentation by the physician of record - 50673.?Nail Reduction:?Nail Reduction?Trimming of dystrophic nails performed to reduce/remove overall nail length and girth, by manual and electrical means with use of a nail nipper and/or dremel, to more viable healthy nail plate or bed tissue 6-10 (G0127).? * Procedure Codes:?G0127 ASHLEIGH ING DYSTROPHIC NAILS ANY #, Modifiers: XS 18311 TRIM SKIN LESIONS, OVER 4, Modifiers: XS [...] Chen, DPM Date:? Generated for Cheryl bundy/Rashard/Pedro on:?11/01/2024 09:20 AM [...]
== END 2024-11-01 09:46 | disposition home or self-care (01) ==
LOC: HO.HUSH 08:49
PROVIDERS: PCP General Practice; Visit Provider Nurse Practitioner Family
DX: Z13.9 Encounter for screening, unspecified (principal); N20.0 Calculus of kidney
CPT/HCPCS: 99213; G2211

== ENCOUNTER → 2024-11-01 08:49 | Outpatient (BNVA) | payer OTHER, SELFPAY | PROVIDERS: PCP General Practice; Visit Provider Nurse Practitioner Family | DX: R35.0 Frequency of micturition (principal); Z87.442 Personal history of urinary calculi | CPT/HCPCS: 81003; 99212 ==

== ENCOUNTER 2024-11-30 09:59 | Outpatient (AMB) | payer OTHER, SELFPAY ==
--- OUTSIDE RECORDS SUMMARY | 2024-11-30 10:19 | XMS_ITS | Encounter Summary ---
Author Organization [facility] Address [address] [place] [address] [address] [place] [address] Care Team Providers Care Diagnostic Cardiac Sonographer Name Role Phone Amina Nieves MD Primary Care Provider [phone] Reason for Visit * Reason Comments Med Refill Encounter Details Date Type Department Care Team ([facility] st Contact Info) Description 06/01/2024 Refill [facility] [address] [place], [place] [phone] Jhoana Worrell DO [address] [place], [place] [phone] Social History Tobacco Use Types Packs/Day Years [...] Care Team (Late st Contact Info) Description 12/07/2024 9:00 AM EDT Medication Management [address] [address] 01/26/2025 9:30 AM EDT Office Visit [address] [address] Amina Nieves MD [address] [place] [address] documented as of this encounter Visit Diagnoses Not on filedocumented in this encounter Additional Health Concerns Assessment Noted Time PHQ-9 Depression Total Score: 0 09/22/19 24 2:51 PM EDT documented as of this encounter Care Teams Diagnostic Cardiac Sonographer Relationship Specialty Start Date End Date Amina Nieves MD [address] [place] [address] PCP - General Family Medicine 04/07/21 documented as of this encounter
--- OUTSIDE RECORDS SUMMARY | 2024-11-30 10:19 | XMS_ITS | Encounter Summary ---
Author Organization [facility] Address [address] [place] [address] [address] [place] [address] Care Team Providers Care Terrazzo Installer Name Role Phone Amina Nieves MD Primary Care Provider [phone] Encounter Details Date Type Department Care Team (Late st Contact Info) Description 10/26/2024 Telephone [facility] [address] [place], [place] [phone] Amina Nieves MD [address] [place], [place] [phone] Social History Tobacco Use Types Packs/Day Years [...] Description 12/07/2024 9:00 AM EDT Medication Management [address] [address] 01/26/2025 9:30 AM EDT Office Visit [facility] [address] [place] [address] Amina Nieevs MD [address] [place] [address] documented as of this encounter Visit Diagnoses Not on filedocumented in this encounter Additional Health Concerns Assessment Noted Time PHQ-9 Depression Total Score: 0 10/21/19 25 10:26 AM EDT documented as of this encounter Care Teams Terrazzo Installer Relationship Specialty Start Date End Date Amina Nieves MD [address] [place] [address] PCP - General Family Medicine 04/07/21 documented as of this encounter
--- OUTSIDE RECORDS SUMMARY | 2024-11-30 10:19 | XMS_ITS | Encounter Summary ---
Author Organization [facility] Address [address] [place] [address] 7[address] [place] [address] Care Team Providers Care Contact Center Assistant Name Role Phone Amina Nieves MD Primary Care Provider [phone] Reason for Referral * Consultation (Routine) - Authorized Specialty Diagnoses / Procedures Referred By Contac t Referred To Contact Pharmacy Diagnoses HTN (hypertension) Amina Nieves MD [address] [place] [address] Phone: tel: fax: Referral ID Status Reason Start Date Expiration Date Visits Requested Visits Authorized [id number] Authorized Continuity of Care 10/25/2024 10/25/2025 6 6 Encounter Details Date Type Department Care Team (Late st Contact Info) Description 10/25/2024 Orders Only [facility] [address] [place], [place] [phone] Amina Nieves MD [address] [place], [place] [phone] HTN (hypertension) (Primary Dx) Social History Tobacco [...] Description 12/07/2024 9:00 AM EDT Medication Management [facility] [address] [place] [address] 01/26/2025 9:30 AM EDT Office Visit [facility] [address] [place] [address] Amina Nieves MD [address] [place] [phone] Scheduled Referrals Name Type Priority Associated Diagnoses Orde r Schedule Referral to Pharmacy [place] Outpatient Referral Routine HTN (hypertension) Ordered: 10/25/2024 documented as of this encounter Visit Diagnoses Diagnosis HTN (hypertension)- Primary Unspecified essential hypertension documented in this encounter Additional Health Concerns Assessment Noted Time PHQ-9 Depression Total Score: 0 10/21/19 25 10:26 AM EDT documented as of this encounter Care Teams Contact Center Assistant Relationship Specialty Start Date End Date Amina Nieves MD [address] [place] [address] PCP - General Family Medicine 04/07/21 documented as of this encounter
--- OUTSIDE RECORDS SUMMARY | 2024-11-30 10:19 | XMS_ITS | Clinical Summary ---
Demographics Address [address] [place] [address] [address] [place] [address] Work Phone Mobile Phone Home Phone Preferred Language es Marital Status Single Anabaptist Affiliation Unknown Race Other Race Ethnic Group Unknown Author Organization [employer] Address [address] [place] [address] 7t [place] [address] Care Team Providers Care Manufacturing Project Engineer Name Role Phone Amina Nieves MD Primary Care Provider [phone] Allergies Active Allergy Reactions Criticality Noted Date [...] MÓNICA A LA HORA DE DORMIR Active Eiggkfv-Xhbtxpd-Jj thyl Elvin (Salonpas) 3.1-6-10 % patch APPLY 1 TO 2 PATCHES TOPICALLY TO SKIN, LEAVE ON FOR 12 HOURS AND OFF FOR 12 HOURS DIRECTED NEEDED FOR PAIN 60 patch 2 Active magnesium oxide (Mag-Ox) 400 (240 Mg) [...] bedtime for wheezing. 75 mL 11 Active furosemide (Lasix) 20 MG tablet Active [...] BY MOUTH EVERY EVENING 90 tablet 3 024 Active Calcium Carb-Cholecalcifer ol (Oyster Shell Calcium w/D) 500-5 MG-MCG tablet TAKE 1 TABLET BY MOUTH TWICE DAILY IN THE MORNING AND IN THE EVENING 180 tablet 3 024 Active Diclofenac Sodium 1 % gel Apply 4 g topically if needed in the morning, at noon, in the evening, and at bedtime (pain). 100 g 1 024 Active TRUEplus Lancets 33G misc TEST [...] neuropathy, without long-term current use of insulin (CMS/[facility]) TAKE 1 TABLET BY MOUTH EVERY MORNING 90 tablet 3 024 Active nystatin (Mycostatin) 526306 UNIT/GM powderIndications: Skin candidiasis APPLY TO THE [...] 025 Active Blood Glucose Monitoring Suppl (FreeStyle [place] Lite) w/Device kitIndications:Typ e 2 diabetes mellitus with diabetic neuropathy, without long-term current use of insulin ([facility]) Use to test blood sugar two times [...] Active ofloxacin (Ocuflox) 0.3 % ophthalmic solution 025 Active prednisoLONE acetate (Pred-Forte) 1 % ophthalmic suspension Active clobetasol (Temovate) 0.05 % ointment Apply topically 2 times daily. 30 g 3 025 Active D3 Super Strength 50 MCG (2000 UT) capsule TAKE 1 CAPSULE BY MOUTH EVERY MORNING 90 capsule 3 025 Active D3 Super Strength 50 MCG (2000 UT) capsule TAKE 1 CAPSULE BY MOUTH EVERY MORNING 90 capsule 3 024 2024 Discontinued Active Problems Problem Noted Date Diagnosed Date Pre-op exam 10/11/2024 Endometrial cancer 12/20/2023 Assessment & Plan (12/23/2023 2:30 PM EDT): [facility] clinical systems educator/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 Ying 01/2023 - referred to [facility] by Dr. Ying with Dr. Rodriguez at [facility] clinical systems educator Oncology on 01/14/2023 at 10:00. -CT scan [...] & Plan (12/23/2023 2:31 PM EDT): Continue locker and ASA Cardiology followup Assessment & Plan [...] anxiety related eating Continue annual dental follow-up BRIGHT04/2024 no DM retinopathy Foot exam R foot [...] Encounters Date Type Department Care Team Description 11/14/2024 Refill [facility] [address] [place] [address] Amina Nieves MD 10/26/[address] [address] Amina Nieves MD call back needed 10/26/2024 Telephone [facility] [address] [place] [address] Amina Nieves MD 10/25/2024 Orders Only [facility] [address] [place] [address] Amina Nieves MD HTN (hypertension) (Primary Dx) 10/25/2024 Orders Only [facility] [address] [place] [address] Amina Nieves MD 10/20/2024 10:30 AM EDT Office Visit [facility] [address] [place] [address] Amina Nieves MD Type 2 diabetes mellitus with diabetic neuropathy, without long-term current use of insulin (CMS/HCC) (Primary Dx); Endometrial cancer (CMS/HCC); Dietary counseling; Exercise counseling; Class 3 severe obesity with serious comorbidity and body mass index (BMI) of 45.0 to 49.9 in adult, unspecified obesity type; Ascending aorta dilatation (CMS/HCC); Vaginal itching; Primary hypertension 10/20/2024 Travel 10/18/2024 Refill [facility] [address] [place], [place] [phone] Amina Nieves MD Leg cramps 10/17/2024 Telephone [facility] [address] [place] [phone] Jojo Nieto, VERÓNICA 10/16/2024 Telephone [facility] [address] [place] [phone] Pasha Alas [place] Faxed to surgeon 10/16/2024 Refill [facility] [address] [place] [address] Amina Nieves MD Dizziness 10/12/2024 Refill [facility] [address] [place] [phone] Amina Nieves MD Type 2 diabetes mellitus with diabetic neuropathy, without long-term current use of insulin ([facility]) 10/11/2024 10:00 AM EDT Office Visit [address] [address] Xiomy Daigle FNP Pre-op exam (Primary Dx); Type 2 diabetes mellitus with diabetic neuropathy, without long-term current use of insulin ([facility]); Primary hypertension; Mild intermittent asthma, unspecified whether complicated; Obstructive sleep apnea 10/11/2024 Travel 10/10/2024 Orders Only GENERIC EXTERNAL DATA DEPARTMENT Provider, Generic External Data 10/06/[address] [address] Amina Nieves MD Pre-op Exam 09/20/2024 Refill [facility] [address] [place] [phone] Amina Nieves MD Type 2 diabetes mellitus with diabetic neuropathy, unspecified ([facility]); Allergic rhinitis, unspecified seasonality, unspecified trigger 09/20/2024 Refill [facility] [address] [place] [phone] Kapil Blackman MD Allergic rhinitis, unspecified seasonality, unspecified trigger 09/18/2024 Orders Only [facility] External Provider, [facility] 09/15/2024 Refill [facility] [address] [place] [phone] Amina Nieves MD from Last 3 Months Immunizations Immunization Administration Dates Next Due Hep A, Adult [...] Upcoming Encounters Date Type Department Care Team (Quentin Contact Info) Description 12/07/2024 9:00 AM EDT Medication Management [facility] [address] [place], [place] [phone] 01/26/2025 9:30 AM EDT Office Visit [facility] [address] [place] [address] Amina Nieves MD [address] [place] [address] Health Maintenance Due Date Last Done Comments [...] 10/11/2025 10/11/2024 Depression Screening 10/20/2025 10/20/2024, 10/21/19 25 Tobacco Screening 10/20/2025 10/20/2024 Eye Exam 05/05/2026 [...] patient's age to complete this topic Meningococcal B Vaccine Aged Out No l onger eligible based on patient's age to complete [...] neuropathy, without long-term current use of insulin ([facility]) POCT GLUCOSE Routine 10/11/2024 10:24 AM EDT Type 2 diabetes mellitus with diabetic neuropathy, without long-term current use of insulin ([facility]) METHYLMALONIC ACID Routine 10/10/2024 7: 54 AM [...] AM EDT Screening mammogram for breast cancer COLONOSCOPY Routine 10/18/2019 from Last 3 Months [...] Date Urine 10/20/2024 12:1 0 PM EDT us Amina Nieves MD POINT OF CARE TEST ENTER/EDIT ORDERABLES Final Result * (ABNORMAL) POCT Glucose (10/20/2024 10:25 AM EDT) Only the most recent of2 resultswithin the time period is included. Glucose Blood, POC 282(A) 60 - 200 mg/dL QC Media Lot # [id number] Lot# Expiration Date Blood Capillary blood specimen / Unknown 10/20/2024 10:25 AM EDT us Amina Nieves MD POINT OF CARE TEST ENTER/EDIT ORDERABLES Final Result * Vitamin D, 25-Hydroxy, Total, Immunoassay (10/10/2024 7:54 AM EDT) Vitamin D 25-OH Total 46.8 >30 ng/mL [facility] Comment: Health Based Reference Values*< 20 ??ng/mL ??Wikpbdukc63-43 ng/mL ??Insufficient> 30 ??ng/mL ??Sufficient*Delmis LEVINE. N [...] ORDERAB LES Final Result Performing Organization Address [facility] Co de Phone Number [facility] [address] [place] [phone] * (ABNORMAL) Vitamin B12 (Cobalamin) and Folate Panel, Serum (10/10/2024 7:54 AM EDT) Vitamin B12 918(H) 200 - 900 pg/mL [facility] Comment:NORMAL 200-900 PG/ML INDETERMINATE 160-199 PG/ML DEFICIENT < 160 PG/ML Folate 10.1 > or = 4.0 ng/mL [facility] Comment:Reference Values:> o r = 4.0 ng/mL< 4.0 ng/mL suggests folate deficiency Methotrexate, aminopterin and folinic acid(leucovorin) are chemotherapeutic agents whose molecularstructures are similar to folate; therefore, the Architectfolate assay cannot be used for patients using these drugs. 10/10/2024 7:54 AM EDT 10/10/2024 7:54 AM EDT us Generic External Data Provider LAB BLOOD ORDERAB LES Final Result Performing Organization Address [facility] Co de Phone Number [facility] [address] [place] [address] [phone] * (ABNORMAL) TSH with Reflex to Free T4 (10/10/2024 7:54 AM EDT) TSH reflex Free T4 5.22(H) 0.32 - 4.0 uIU/mL [facility] 10/10/2024 7:54 AM EDT 10/10/2024 7:54 AM EDT us Generic External Data Provider LAB BLOOD ORDERAB LES Final Result [facility] [address] [place] [phone] * (ABNORMAL) Lipid Panel with Reflex to Direct LDL (10/10/2024 7:54 AM EDT) Triglycerides 248(H) <150 mg/dL [facility] Comment:Desirable Triglyceri de: less than 150 mg/dLBorderline High Triglyceride 150-199 mg/dLHigh Triglyceride: 200-499 mg/dLVery High Triglyceride: greater than or equal to 5OO mg/dL Cholesterol 207(H) <200 mg/dL [facility] Comment:Desirable Cholestero l: less than 200 mg/dLBorderline High Cholesterol: 200-239 mg/dLHigh Cholesterol: greater than 239 mg/dL LDL Cholesterol Calculated 116(H) <100 mg/dL [facility] Comment:Desirable LDL: less than 100 mg/dLNear Optimal/Above Optimal LDL: 110- 129 mg/dLBorderline High LDL: 130-159 mg/dLHigh LDL: 160-189 mg/dLVery High LDL: greater than or equal to 190 mg/dL HDL Cholesterol 42 >40 mg/dL [facility] Comment:Desirable HDL: great er than 40 mg/dL Note: This HDL assay may give artificially low results in patients with liver disease. 10/10/2024 7:54 AM EDT 10/10/2024 7:54 AM EDT us Generic External Data Provider LAB BLOOD ORDERAB LES Final Result Performing Organization Address [facility]/ZIP Co de Phone Number [facility] [address] [place] [address] [phone] * Methylmalonic Acid (10/10/2024 7:54 AM EDT) Methylmalonic Acid 137 69 - 390 nmol/L [facility] Comment: Serum methylmalonic acid (MMA) [...] outcomes,such as neural tube defects and intrauterine growthrestriction.[employer] utilized Multi-Modal Decomposition(MMD) analysis to establish first and second trimester-specific MMA reference intervals in , as givenbelow:MMA, First trimester (<13 wks gestation): 58-167 nmol/LMMA, Second trimester (13-23 wks gestation):63-241 nmol/LThis test was developed and its analytical performancecharacteristics have been determined by [employer]. It has not been cleared or approved by theFDA. This assay has been validated pursuant to the CLIAregulations and is used for clinical purposes.THIS TEST WAS PERFORMED AT:[employer]/[facility] [place], [place] ??[id number] HULL MD,PHD 10/10/2024 7:54 AM EDT 10/10/2024 7:54 AM EDT us Generic External Data Provider LAB BLOOD ORDERAB LES Final Result Performing Organization Address City/[facility]/ZIP Co de Phone Number [facility] [address] [place] [address] [phone] * CBC (10/10/2024 7:54 AM EDT) White Blood Count 6.5 4.8 - 10.8 X10*3/uL [facility] Red Blood Count 4.61 4.20 - 5.50 X10*6/uL [facility] Hemoglobin 12.5 12.0 - 16.0 g/dl [facility] Hematocrit 38.5 37.0 - 47.0 % [facility] Mean Corpuscular Volume 83.5 80.0 - 98.0 fL [facility] Mean Corpuscular Hemoglobin 27.1 27.0 - 33.0 pg [facility] Mean Corpuscular HGB Conc 32.5 31.0 - 35.0 g/dl [facility] Red Cell Distribution Width 13.8 11.0 - 16.0 % [facility] Platelet Count 247 160 - 400 X10*3/uL [facility] Mean Platelet Volume 12.0 9.4 - 12.3 fL [facility] NRBC Pct Auto 0.0 0.0 - 0.2 /100WBC [facility] NRBC Abs Auto 0.000 0.0 - 0.012 X10*3/uL [facility] 10/10/2024 7:54 AM EDT 10/10/2024 7:54 AM EDT us Generic External Data Provider LAB BLOOD ORDERAB LES Final Result Performing Organization Address City/[facility] Co de Phone Number [facility] [address] [place] [phone] * T4, Free (10/10/2024 7:54 AM EDT) Free T4 (Free Thyroxine) 1.28 0.71 - 1.85 ng/dL [facility] 10/10/2024 7:54 AM EDT 10/10/2024 7:54 AM EDT us Generic External Data Provider LAB BLOOD ORDERAB LES Final Result [facility] [address] [place] [phone] * (ABNORMAL) Homocysteine (10/10/2024 7:54 AM EDT) Homocysteine 15.0(A) <10.4 umol/L [facility] Comment:Homocysteine is incr eased by functional deficiency offolate or vitamin B12. Testing for methylmalonic aciddifferentiates between these deficiencies. Other causesof increased homocysteine include renal failure, folateantagonists such as methotrexate and phenytoin, andexposure to nitrous oxide.Isaias Montes, et al., Jhoana Ring Sorter Med. 1999;131(5):331-9.THIS TEST WAS PERFORMED AT:[employer] [place] [phone] COREAS MD 10/10/2024 7:54 AM EDT 10/10/2024 7:54 AM EDT us Generic External Data Provider LAB BLOOD ORDERAB LES Final Result Performing Organization Address [facility] Co de Phone Number [facility] [address] [place] [phone] * (ABNORMAL) Hemoglobin A1c (10/10/2024 7:54 AM EDT) Hemoglobin A1c 9.4(H) <6.0 % [facility] Comment:Hemoglobin A1C Refer ence Range Adults: 4.8 - 6.0 % Non diabetic: < 6.0 % Goal: < 7.0 %Additional Action Suggested: > 8.0 %Note: Hemoglobin A1c results are invalid for patients with abnormal amounts of HbF. Blood transfusions may impact the HbA1c concentration in the patient sample. Estimated Average Glucose 223 mg/dL [facility] Comment:eAG = Estimated ave rage glucose which is %A1C expressed asaverage glucose, using the formula of the R1A-UhkoqmrUdicwmw Glucose study (ADAG), Diabetes Care, Vol.31,#8,2007 10/10/2024 7:54 AM EDT 10/10/2024 7:54 AM EDT us Generic External Data Provider LAB BLOOD ORDERAB LES Final Result Performing Organization Address City/[facility]/ZIP Co de Phone Number [facility] [address] [place] [address] [phone] * Ferritin (10/10/2024 7:54 AM EDT) Pathologist [facility] Ferritin 97 10 - 250 ng/mL [facility] 10/10/2024 7:54 AM EDT 10/10/2024 7:54 AM EDT Generic External Data Provider LAB BLOOD ORDERAB LES Final Result Performing Organization Address [facility] de Phone Number [facility] [address] [place] [address] [phone] * (ABNORMAL) Comprehensive Metabolic Panel (10/10/2024 7:54 AM EDT) Pathologist [facility] Sodium 141 135 - 145 mmol/L [facility] Potassium 4.3 3.3 - 5.1 mmol/L [facility] Chloride 104 96 - 108 mmol/L [facility] Carbon Dioxide 29 22 - 29 mmol/L [facility] Anion Gap 12 12 - 20 [facility] Urea Nitrogen (BUN) 20(H) 9 - 16 mg/dL [facility] Creatinine, Serum 0.97 0.5 - 1.4 mg/dL [facility] Estimated Glomerular Filt Rate 57 [facility] Comment:Chronic Kidney Disea se: Estimated GFR < 60 mL/min/1.76u6Ufqhgo Kidney Disease: Estimated GFR < 15 mL/min/1.73m2 Glucose 206(H) 60 - 115 mg/dL [facility] Calcium 10.1 8.4 - 10.2 mg/dL [facility] Bilirubin, Total 0.7 0.0 - 1.0 mg/dL [facility] Aspartate Amino Transferase 27 5 - 31 U/L [facility] Alanine Aminotransferase 31 0 - 31 U/L [facility] Total Protein 7.3 6.5 - 8.0 g/dL [facility] Albumin Level 4.2 3.5 - 5.0 g/dL [facility] Alkaline Phosphatase 133(H) 39 - 117 U/L [facility] 10/10/2024 7:54 AM EDT 10/10/2024 7:54 AM EDT us Generic External Data Provider LAB BLOOD ORDERAB LES Final Result [facility] [address] [place] [phone] [phone] * US RENAL BI (09/18/2024 9:40 AM EDT) Anatomical Region Laterality Modality Abdomen Ultrasound 09/18/2024 9:40 AM EDT Narrative 09/18/2024 9:42 AM EDT ? [facility] ?[address] ?[place] [address] ? Ultrasound Report ? Signed ? Patient: Karon Nur ?MR#: ?? [id number] ? : 1955 ?Acct:[id number] ? Age/Sex: 69 / F ?ADM Date: 09/18/24 ? Loc: HO.US ? Attending Dr: Lauren LOPES ? Ordering Physician: Lauren Summers ?? Date of Service: 09/18/24 ?? Procedure(s): US renal BI ?? Accession Number(s): [id number] ? cc: Amina Nieves; Lauren Summers ? [...] ? DD/ 0940 ? TD/TT: 09/18/24939 ? Polishing Pad Mounter: ? Procedure Note Donrussellter, Image - 09/18/[address] [address] Ultrasound Report Signed Patient: Ron Nur#: [id number] : 1955cct:[id number] Age/Sex: 69 / FADM Date: 09/18/24 Loc: HO.US Attending Dr: Lauren LOPES Ordering Physician: Lauren Summers Date of Service: 09/18/24 Procedure(s): US renal BI Accession Number(s): [id number] cc: Amina Nieves; Lauren Summers CLINICAL HISTORY: [...] in OV> 09/18/24940 DD/ 9 TD/TT: 09/18/24939 Polishing Pad Mounter: us [facility] External Provider IMG US PROCEDURES Edited Result - Final * XR KUB and Upright 2 Views (09/18/2024 8:04 AM EDT) Anatomical Region Laterality Modality Radiographic Jannette ging 09/18/2024 8:04 AM EDT Narrative 09/19/2024 8:49 AM EDT ? [facility] ?[address] ?[place] [address] ?XRay Report ? Signed ? Patient: Karon Nur ?MR#: ?? [id number] ? : 1955 ?Acct:[id number] ? Age/Sex: 69 / F ?ADM Date: 09/18/24 ? Loc: HO.US ? Attending Dr: Lauren LOPES ? Ordering Physician: Lauren Summers ?? Date of Service: 09/18/24 ?? Procedure(s): XR KUB ?? Accession Number(s): [id number] ? cc: Amina Nieves; Lauren Summers ? [...] DD/ 0804 ? TD/TT: 09/18/24 0824 ? Polishing Pad Mounter: ? Procedure Note Gaetano, Forrest - 09/19/[address] [address] XRay Report Signed Patient: Ron Nur#: [id number] : 1955cct:[id number] Age/Sex: 69 / FADM Date: 09/18/24 Loc: . Attending Dr: Lauren MCCORMACKPMilind Ordering Physician: Lauren Summers Date of Service: 09/18/24 Procedure(s): XR KUB Accession Number(s): [id number] cc: Amina Nieves; [facility]: XR ABDOMEN 1 VIEW (KUB) HISTORY: [...] 09/19/24 0846 DD/ 0804 TD/TT: 09/18/24 0824 Polishing Pad Mounter: [facility] External Provider IMG XR PROCEDURES Final Result * Albumin, Random Urine W/Creatinine (05/25/2024 9:46 AM EST) Creatinine, Urine 85.32 mg/dL [facility] Microalbumin Urine 23.0 mg/L [facility] Microalbum Creatinine Ratio Ur 26.9 <30 ug/mg cr [facility] Comment:Albumin/Creatinine R atio Reference Ranges: Normal: < 30 ug/mg creatinine Microalbuminuria: 30 - 300 ug/mg creatinineClinical Albuminuria: > 300 ug/mg creatinine Urine (Urine, Random) 05/25/2024 9:46 AM EST 05/25/2024 11:28 AM EST Amina Nieves MD LAB URINE ORDERABLES Final Res ult Performing Organization Address [facility] Co de Phone Number [facility] [address] [place] [address] [phone] * Hepatitis C Antibody with Reflex to HCV, RNA, Quantitative, Real-Time PCR (05/25/2024 9:46 AM EST) Hepatitis C Antibody Nonreactive Nonreactive [facility] Comment:Antibodies to HCV no t detected; does not exclude early acuteHCV infection. Blood Venous blood specimen / Unknown 05/25/2024 9:46 AM EST 05/25/2024 10:53 AM EST Amina Nieves MD LAB BLOOD ORDERABLES Final Res ult Performing Organization Address [facility] Co de Phone Number [facility] [address] [place] [address] [phone] * BI Mammogram Screening Tomosynthesis Bilateral (12/22/2023 10:05 AM EDT) Anatomical Region Laterality Modality Breast Bilateral Mammography 12/22/2023 10:0 5 AM EDT Narrative 01/20/2024 9:58 AM EDT ? [facility] ? [address] ?[place] [address] ? Mammography Report ? Signed ? Patient: Adan Swiftpo,Karon ?MR#: ?? [id number] ? : 1955 ?Acct:[id number] ? Age/Sex: 68 / F ?ADM Date: 06/12/24 ? Loc: HO.MAMMO ? Attending Dr: Amina Nieves MD ? Ordering Physician: Amina Nieves ?Results: 1Negative ? Date of Service: 12/22/23 ?Follow Up: 1 Year From Orig ?? inal Mammogram ? Procedure(s): MM tomosynthesis screening BI ?? Accession Number(s): [id number] ? cc: Amina Nieves ? EXAMINATION: ?? [...] 0954 ? DD/ 1005 ? TD/TT: ? Polishing Pad Mounter: ? Procedure Note Donotuseinterpreter, Image - [facility] [address] [place], [place] [address] Mammography Report Signed Patient: Ron Nur#: [id number] : 1955cct:[id number] Age/Sex: 68 / FADM Date: 12/22/23 Loc: HO.MAMMO Attending Dr: Amina Nieves MD Ordering Physician: Nicole Nievesults: 1Negative Date of Service: 12/22/23Follow Up: 1 Year From Orig inal Mammogram Procedure(s): MM tomosynthesis screening BI Accession Number(s): [id number] cc: Amina Nieves EXAMINATION: MM SCREENING DIGITAL [...] in OV> 01/20/24 0954 DD/ 1005 TD/TT: Polishing Pad Mounter: Amina Nieves MD IMG BI PROCEDURES Final Result * (ABNORMAL) Hm Colonoscopy (10/18/2019) Colonoscopy Abnormal(A ) Normal us Historical Provider HEALTH MAINTENANCE Edited Result - Final from Last 3 Months or Most Recently Relevant to Health Maintenance Insurance * Guarantor: Karon Nur Account Type Relation to Patient Date of Phone Billing Address Personal/Family Self 1955 [address] [place] [address] [facility] INTERMEDIATE OPTIONS ([facility]) [facility] INTERMEDIATE OPTIONS ([facility]) * Guarantor: Karon Nur Account Type Relation to Patient Date of Phone Billing Address Personal/Family Self [address] [place] [address] * Guarantor: Karon Nur Account Type Relation to Patient Date of Phone Billing Address Personal/Family Self [address] [place] [address] * Guarantor: Karon Nur Account Type Relation to Patient Date of Phone Billing Address Personal/Family Self [address] [place] [address] Care Teams Manufacturing Project Engineer Relationship Specialty Start Date End Date Amina Nieves MD [address] [place] [address] PCP - General Family Medicine 04/07/21
--- OUTSIDE RECORDS SUMMARY | 2024-11-30 10:19 | XMS_ITS | Encounter Summary ---
Author Organization [employer] Address [address] [place] [address] 7t [place] [address] Care Team Providers Care Amusement Park Worker Name Role Phone Amina Nieves MD Primary Care Provider Reason for Visit * Reason Comments Med Refill Encounter Details Date Type Department Care Team (Late st Contact Info) Description 01/23/2023 Refill [facility] [address] [place] [address] Amina Nieves MD [address] [place] [address] Social History Tobacco Use Types Packs/Day Years [...] Encounters Date Type Department Care Team (Late Contact Info) Description 12/07/2024 9:00 AM EDT Medication Management [facility] [address] [place] [address] [phone] 01/26/2025 9:30 AM EDT Office Visit [facility] [address] [place] [address] Amina Nieves MD [address] [place] [address] documented as of this encounter Visit Diagnoses Not on filedocumented in this encounter Additional Health Concerns Assessment Noted Time PHQ-9 Depression Total Score: 0 09/22/19 23 10:45 AM EDT documented as of this encounter Care Teams Amusement Park Worker Relationship Specialty Start Date End Date Amina Nieves MD [address] [place] [address] PCP - General Family Medicine 04/07/21 documented as of this encounter
--- OUTSIDE RECORDS SUMMARY | 2024-11-30 10:19 | XMS_ITS | Encounter Summary ---
Author Organization [employer] Address [address] [place] [address] 7t [place] [address] Care Team Providers Care Orthodontist Assistant Name Role Phone Amina Nieves MD Primary Care Provider [phone] Encounter Details Date Type Department Care Team (Late st Contact Info) Description 01/26/2024 Orders Only [facility] MEDICINE [address] [place], [place] [phone] Amina Nieves MD [address] [place], [place] [phone] Social History Tobacco Use Types Packs/Day Years [...] Description 12/07/2024 9:00 AM EDT Medication Management [facility] [address] [place] [address] 01/26/2025 9:30 AM EDT Office Visit [address] [address] Amina Nieves MD [address] [place] [address] documented as of this encounter Visit Diagnoses Not on filedocumented in this encounter Additional Health Concerns Assessment Noted Time PHQ-9 Depression Total Score: 0 09/22/19 24 2:51 PM EDT documented as of this encounter Care Teams Orthodontist Assistant Relationship Specialty Start Date End Date Amina Nieves MD [address] [place] [address] PCP - General Family Medicine 04/07/21 documented as of this encounter
--- OUTSIDE RECORDS SUMMARY | 2024-11-30 10:19 | XMS_ITS | Encounter Summary ---
Author Organization [employer] Address [address] [place] [address] 7t [place] [address] Care Team Providers Care Compliance Spec Name Role Phone Amina Nieves MD Primary Care Provider [phone] Reason for Visit * Reason Comments Med Refill Encounter Details Date Type Department Care Team ([facility] st Contact Info) Description 05/07/2023 Refill [facility] [address] [place], [place] [phone] Amina Nieves MD [address] [place], [place] [phone] Rash Social History Tobacco Use Types Packs/Day [...] Description 12/07/2024 9:00 AM EDT Medication Management [facility] [address] [place] [address] 01/26/2025 9:30 AM EDT Office Visit [facility] [address] [place] [address] Amina Nieves MD [address] [place] [address] documented as of this encounter Visit Diagnoses Diagnosis Rash Rash and other nonspecific skin eruption documented in this encounter Additional Health Concerns Assessment Noted Time PHQ-9 Depression Total Score: 0 09/22/19 23 10:45 AM EDT documented as of this encounter Care Teams Compliance Spec Relationship Specialty Start Date End Date Amina Nieves MD [address] [place] [address] PCP - General Family Medicine 04/07/21 documented as of this encounter
--- OUTSIDE RECORDS SUMMARY | 2024-11-30 10:19 | XMS_ITS ---
Author Organization [facility] Address [address] [facility] [place] [address] Care Team Providers Care Sound Tester Name Role Phone Carmen Santiago Primary Care Provider Unavailab Risa Castellanos Unavailable [phone] Allergies Allergen (clinical drug ingredient) Drug/Non Drug [...] other tobacco user? No Vital Signs Height 0cb45zz in 09/13/2024 Weight 235 lbs 09/13/2024 BMI 47.46 kg/m2 09/13/2024 Blood pressure systolic 160 mm Hg 09/14/19 25 Blood pressure diastolic 75 mm Hg 025 Encounters Encounter Location Date Provider Diagnosis [facility] [place] [address] [place] [address] 09/13/2024 Risa Chen Type 2 diabetes mellitus [...] Details Follow Up: 2 Months, Reason: Provider Name:Nyla sotomayor, 12/07/2024 11:15:00 AM, [address] [place] [address], [phone], Procedure Notes * Category Sub-Category Detail Notes [...] instrumentation by the physician of record - 63522 Nail Reduction Nail Reduction (-27) Trimming o [...] * Cheri ARELLANOsDOB: [birth year] (69 yo F)Acc No.[id number]:09/13/2024 Progress Note Patient:?ALEKSEY Karon Provider:?Risa Chen DPM :1955???Age:69 Y???Sex:Female D ate:09/13/2024 Address:[address] [place], [place] [address] Pcp:Carmen Santiago Subjective: * Chief Complaints: * [...] * Allergies:?Leonid adrian[Allergies Verified] Objective: * Vitals:?Ht: 6uk66wt, Wt:235, BMI:47.46, Shoe size: 8, BP:160/75mm Hg, [...] instrumentation by the physician of record - 74954.?Nail Reduction:?Nail Reduction?(-27) Trimming of all dystrophic nails [...] ING DYSTROPHIC NAILS ANY #, Modifiers: XS 56752 TRIM SKIN LESIONS, OVER 4, Modifiers: XS [...] Chen DPM Date:?11/2024 Generated for Cheryl bundy/Rashard/Pedro on:?11/30/2024 10:19 AM EDT History and Physical Notes * [...]
--- OUTSIDE RECORDS SUMMARY | 2024-11-30 10:19 | XMS_ITS ---
Author Organization [facility] Address [address] [place] [address] Care Team Providers Care Research And Development Scientist Name Role Phone Carmen Santiago Primary Care Provider Unavailab Risa Castellanos Unavailable [phone] Yancey Encounters Encounter Location Date Provider Diagnosis [address] [address] 11/28/2024 Risa Chen Plan Of Treatment Next Appt Details Provider Name:Nyla sotomayor, 12/07/2024 11:15:00 AM, [address] [place], [address], Progress Notes * Cheri ARELLANOsDOB: [birth year] (69 yo F)Acc No.[id number]:11/28/2024 Progress Note Patient:?Karon ARELLANO Provider:?Risa Chen DPM :1955???Age:69 Y???Sex:Female D ate:11/28/2024 Address:[address] [place] [address] [phone] Pcp:Carmen Santiago Subjective: * Chief Complaints: * ???1. Dr Yancey. * Medical History:? Objective: * Vitals:? Assessment: Plan: * Treatment: * Images: * The named appointment provid er may or may not be the originator of this progress note, and it is not deemed complete until electronically signed by the appointment provider. Sign off status: Pending * Provider:?Risa Chen DPM Date:? Generated for Cheryl bundy/Rashard/Pedro on:?11/30/2024 10:19 AM EDT
--- OUTSIDE RECORDS SUMMARY | 2024-11-30 10:19 | XMS_ITS | Patient Health Record ---
Author Organization [facility] Address [address] [facility] [place] [address] Care Team Providers Care Mattress Inspector Name Role Phone Carmen Santiago Primary Care Provider UnavailRisa Toussaint Unavailable [phone] Allergies Allergen (clinical drug ingredient) Drug/Non Drug [...] Problem Status W/U Status Risk Notes Problem Other hammer toe(s) (acquired), right foot (M20.41) Active confirmed Problem Acquired hammer toe of left foot (2840860631740447 ) Other hammer toe(s) (acquired), left foot (M20.42) Active confirmed Problem Polyneuropathy due to type 2 diabetes mellitus (245056605) Type 2 diabetes mellitus with diabetic polyneuropathy (E11.42) Active confirmed Problem 847801159 Hammer toe of right foot (M20.41) Active confirmed Problem 390843126 Neuropathy (G62.9) Active confirmed Problem 08701028 Osteoarthritis o f right ankle and foot (M19.071) Active confirmed Vital Signs Blood pressure diastolic 75 mm Hg 09/13/2024 Height 1ms20oc in 09/13/2024 Blood pressure systolic 160 mm Hg 09/13/2024 Weight 235 lbs 09/13/2024 BMI 47.46 kg/m2 09/13/2024 Encounters Encounter Location Date Provider Diagnosis [address] [address] 01/26/2024 Risa Chen Type 2 diabetes mellitus with diabetic polyneuropathy E11.42 ; Neuropathy G62.9 and Neuropathic pain M79.[address] [address] 04/11/2024 Risa Chen Type 2 diabetes mellitus with diabetic polyneuropathy E11.42 and Xerosis of skin L85.[address] [address] 06/30/2024 Risa Chen Type 2 diabetes mellitus with diabetic polyneuropathy E11.42 and Xerosis of skin L85.[address] [address] 09/13/2024 Risa Chen Type 2 diabetes mellitus [...] right 3V 05/27/2020 Next Appt Details Provider Name:Nyla Ornelas bran, 12/07/2024 11:15:00 AM, [address] [place] [address], [phone], Insurance Providers Payer Name Payer Address Payer Phone Subscriber Number Group Number Insured Name Patient Relationship to Insured Coverage Start Date Coverage End Date [facility] [employer] Claims [address] [place] [address] [phone] [id number] Karon Howard Self - patient is the insured Medical (General) History Medical History History ICD Code Arthritis asthma type I diabetes Headaches High blood pressure Cataracts Joint implants/screws Cholesterol Surgical History Surgery Date(Month/Year) cataract removal 06/2024
--- OUTSIDE RECORDS SUMMARY | 2024-11-30 10:20 | XMS_ITS | Encounter Summary ---
Author Organization [employer] Address [address] [place] [address] 7t [place] [address] Care Team Providers Care Hand Pattern Marker Name Role Phone Amina Nieves MD Primary Care Provider [phone] Encounter Details Date Type Department Care Team (Late Contact Info) Description 10/27/2022 Orders Only [facility] MEDICINE [address] [place], [place] [phone] Amina Nieves MD [address] [place], [place] [phone] Vaginal bleeding (Primary Dx); Endometrial thickening on [...] 12/07/2024 9:00 AM EDT Medication Management [address] [address] 01/26/2025 9:30 AM EDT Office Visit [address] [address] Amina Nieves MD [address] [place] [address] documented as of this encounter Visit Diagnoses Diagnosis Vaginal bleeding- Primary Other specified noninflammatory disorder of vagina Endometrial thickening on ultrasound documented in this encounter Additional Health Concerns Assessment Noted Time PHQ-9 Depression Total Score: 0 09/22/19 23 10:45 AM EDT documented as of this encounter Care Teams Hand Pattern Marker Relationship Specialty Start Date End Date Amina Nieves MD [address] [place] [address] PCP - General Family Medicine 04/07/21 documented as of this encounter
--- OUTSIDE RECORDS SUMMARY | 2024-11-30 10:20 | XMS_ITS ---
Author Organization [facility] Address [address] [facility] [place] [address] Care Team Providers Care Process Tech Name Role Phone Carmen Santiago Primary Care Provider Unavailab Risa Castellanos Unavailable [phone] Allergies Allergen (clinical drug ingredient) Drug/Non Drug [...] 024 Encounters Encounter Location Date Provider Diagnosis [facility] [address] [address] 06/30/2024 Risa Chen Type 2 diabetes mellitus [...] Reason: Provider Name:Nyla sotomayor, 12/07/2024 11:15:00 AM, [address] [place], [address], Procedure Notes * Category Sub-Category Detail Notes [...] instrumentation by the physician of record - 30357 Nail Reduction Nail Reduction Trimming of dyst rophic nails performed to reduce/remove overall nail length and girth, by manual and electrical means with use of a nail nipper and/or dremel, to more viable healthy nail plate or bed tissue 6-10 (G0127) Progress Notes * Cheri ARELLANOsDOB: [birth year] (69 yo F)Acc No.[id number]:06/30/2024 Progress Note Patient:?Karon ARELLANO Provider:?Risa Chen DPM :1955???Age:69 Y???Sex:Female D ate:06/30/2024 Address:[address] [place] [address], [facility] [id number] Pcp:Carmen Santiago Subjective: * Chief Complaints: * [...] instrumentation by the physician of record - 96769.?Nail Reduction:?Nail Reduction?Trimming of dystrophic nails performed to reduce/remove overall nail length and girth, by manual and electrical means with use of a nail nipper and/or dremel, to more viable healthy nail plate or bed tissue 6-10 (G0127).? * Procedure Codes:?G0127 ASHLEIGH ING DYSTROPHIC NAILS ANY #, Modifiers: XS 60725 TRIM SKIN LESIONS, OVER 4, Modifiers: XS [...] Chen, DPM Date:? Generated for Cheryl bundy/Rashard/Pedro on:?11/30/2024 [...]
--- NOTE | 2024-11-30 10:29 | MHC.OFFVIS ---
Intake Visit Reasons: vag itch Intake Note: Per patient has been dealing with severe vaginal itch for some time now, has brought it up to her PCP was given cream before but doesn't completely help. Notices also gets lumps down there that get bigger and then smaller. Not sure if they pop or just go down in size. No discharge from what she has noticed, no bleeding. Automat Watcher Required: Yes Automat Watcher Language: Project Designer Services: Automat Watcher Present (PowerDMS) Automat Watcher Name: Edgardo [id number] Rehab Spec: Rehab Spec Present (Elizabeth) Accompanied by: Self / Same As Patient Allergies Penicillins [PENICILLINS] Allergy (Intermediate, Verified 11/30/24 10:30) HIVES fluticasone [From Advair Diskus] Allergy (Mild, Verified 11/30/24 10:30) Unknown potassium Allergy (Mild, Verified 11/30/24 10:30) Unknown salmeterol [From Advair Diskus] Allergy (Mild, Verified 11/30/24 10:30) Unknown Is last menstrual period known: No Post menopausal: Yes Patient : No HPI Comments Details: Patient is here today due to finding a painful left labia lump over the weekend and to want to make sure it was nothing serious. Currently the area is not tender and has reduced in size, and feels more itchy. She denies being prone to external vulvar bumps/infections. [facility]LY [facility] Medical History (Updated 11/30/24 @ 10:44 by Radha Blackwell CNM) Endometrial cancer Renal calculi Irritable bowel syndrome Microscopic hematuria Eczema GERD (gastroesophageal reflux disease) Bursitis of heel Achilles tendinitis Juvenile xanthogranuloma Pilar cysts Hypercholesterolemia Kidney stones Osteoarthritis of right knee Osteoarthritis of left knee Hypertension Diabetes mellitus Surgical History History of surgery Hx of total knee arthroplasty (~2017) History of tubal ligation Social History Household Members: None Housing: Apartment Alcohol intake: never Patient Tobacco Use Status: Never used Tobacco Patient : No Current occupational status: disabled Female Reproductive History Menstrual Age of Menarche: 13 Review of Systems Const All systems reviewed & are unremarkable except as noted in HPI and below Physical Exam Const General: cooperative, healthy appearing and no acute distress Orientation/consciousness: patient oriented x3 GI Inspection: Yes normal to inspection Palpation (GI): Soft to palpation and Other GI palpation findings present (Nontender) Rectal Exam - Female: visual inspection normal Other: Eternal: upper left labia majora, rounded 1 cm area, appears to be a plugged sebaceous gland, nontender, no edema, erythema, not purulent or draining. General: Yes bladder normal to palpation External Female Exam: normal appearance of the urethra Speculum Exam - Vagina: normal appearance of the vagina and normal vaginal discharge Speculum Exam - Cervix: Cervix absent Bimanual exam- vagina & uterus: bladder normal to palpation and uterus absent Bimanual Exam- Adnexa, other: normal adnexae Neuro General: patient oriented x3 Assessment & Plan Assessment & Plan (1) Sebaceous gland hyperplasia of vulva: Code(s): L73.8 - Other specified follicular disorders Plan Discussed: Today's findings and reviewed skin care. Advised to continue with warm compresses, not to squeeze the area. Report to the office with any changes in discomfort or swelling for follow up care. At this time the area has reduced in size since the weekend, is nontender and non inflamed. Sebaceous glands can become plugged, feel painful or irritated, most will resolve on their own without medical or surgical intervention. The itching should improve during the healing process. No evidence of yeast found externally or internally. BV panel was obtained, follow up pending results. The patient expressed understanding and agreement with the plan of care. All of her questions and concerns were addressed to the best of my ability. This note is constructed using voice recognition software. While every effort has been made to ensure accuracy, flight operations coordinator errors may have been included. Coding Level of Care Code Est Pt Level 3 (16547) Diagnoses Sebaceous gland hyperplasia of vulva L73.8
== END 2024-11-30 11:28 | disposition home or self-care (01) ==
LOC: HO.HWS 09:59
PROVIDERS: PCP General Practice; Visit Provider Advanced Practice Midwife
DX: L73.8 Other specified follicular disorders (principal)
CPT/HCPCS: 99213

== ENCOUNTER 2024-11-30 09:59 | Outpatient (REF) | payer OTHER, SELFPAY ==
[2024-12-01 11:30] LABS: Bacterial Vaginosis PCR NEGATIVE (Negative); Candida Group PCR NOT DETECTED (Not Detect); Candida glab krusei PCR NOT DETECTED (Not Detect); Trichomonas vaginalis PCR NOT DETECTED (Not Detect)
== END 2024-11-30 10:00 | disposition home or self-care (01) ==
LOC: HO.LNP 09:59
PROVIDERS: PCP General Practice; Visit Provider Advanced Practice Midwife
DX: L73.8 Other specified follicular disorders (principal); N76.0 Acute vaginitis
CPT/HCPCS: 81515; 99212

== ENCOUNTER 2025-01-29 08:06 | Outpatient (REF) | payer OTHER, SELFPAY ==
--- OUTSIDE RECORDS SUMMARY | 2025-01-29 08:09 | XMS_ITS | Encounter Summary ---
Author Organization [employer] Address [address] [place] [address] [address]t [place] [address] Care Team Providers Care Polisher Apprentice Name Role Phone Amina Nieves MD Primary Care Provider [phone] Reason for Visit * Reason Onset Date Comments No Show 01/26/2025 Encounter Details Date Type Department Care Team ([facility] st Contact Info) Description 01/26/2025 Telephone [facility] MEDICINE [address] [place] [address] Amina Nieves MD [address] [place] [address] No Show Social History Tobacco Use Types Packs/Day Years [...] encounter Miscellaneous Notes * Telephone Encounter - Gretchen Loja - 01/26/2025 10:22 AM EDT Pt no showed to appt on 01/26/25 documented in this encounter Plan of Treatment Not on file documented as of this encounter Visit Diagnoses Not on filedocumented in this encounter Additional Health Concerns Assessment Noted Time PHQ-9 Depression Total Score: 0 10/21/19 25 10:26 AM EDT documented as of this encounter Care Teams Polisher Apprentice Relationship Specialty Start Date End Date Amina Nieves MD [address] [place] [address] PCP - General Family Medicine 04/07/21 documented as of this encounter
--- OUTSIDE RECORDS SUMMARY | 2025-01-29 08:09 | XMS_ITS | Patient Health Record ---
Demographics Address [address] [facility] [address] [place] [address] Mobile Preferred Language Unknown Marital Status Unknown Episcopal Affiliation Unknown Race Ethnic Group or Author Organization [facility] Address [address] [place] [address] Care Team Providers Care Manager Commercial Sales Name Role Phone Tyson Cam NP Primary Care Provider Celso Zepeda Unavailable [phone] Allergies Allergen (clinical drug ingredient) Drug/Non Drug Allergy documented on EMR Reaction Allergy Type Onset Date Status Penicillin Unknown Drug Allergy Active Reason For Referral No Information Medications Medication SIG (Take, Route, Frequency, Duration) Notes Start Date End Date Status Rosuvastatin Calcium 10 MG 1 tablet Oral ly Once a day Active metFORMIN HCl ER 500 MG 1 tablet with ev ening meal Orally twice a day Active Oyster Shell Calcium + D 500-200 MG-UNIT 1 tablet with a meal Orally Once a day for 30 day(s) Active Ventolin HFA 108 (90 Base) MCG/ACT 2 puffs as needed Inhalation every 4 hrs Active Magnesium Oxide 400 MG 1 tablet as neede d Orally Once a day for 30 day(s) Active Meclizine HCl 25 MG 1 tablet as needed O rally Once a day Active MiraLax (colon prep) 8.3 ounce ((238) grams mixed with Gatorade or Crystal Light orally begin at 5:00 p.m. the day before the procedure for 1 day 08/03/2019 Active glipiZIDE XL 2.5 MG 1 tablet with breakf ast Orally Once a day for 30 day(s) Active Dulcolax (colon prep) 5 MG take at 3:00 p.m and 7:00p.m. Orally two tablets twice a day for one day for 1 day 08/03/2019 Active Metoprolol Succinate ER 50 MG 1 tablet Orally Once a day Active Irbesartan 150 MG 2 tablets Orally Onc e a day Active Flonase 50 MCG/ACT 1 spray in each nost ril Nasally Once a day Active Dicyclomine HCl 10 MG 1-2 capsules Orall y Four times a day prn abndominal pain/doscomfort for 30 day(s) Active amLODIPine Besylate 5 MG 1 tablet Orally Once a day Active Omeprazole 20 MG 1 capsule Orally Onc e a day Active Aspirin 81 MG 1 tablet Orally Once a day Active Vitamin D 2000 UNIT 1 tablet Orally Once a day Active Tylenol 325 MG 2 tablets as needed Orally every 6 hrs/prn Active Isosorbide Mononitrate ER 30 MG 1 tablet in the morning Orally Once a day Active Immunizations Vaccine Route Administration Date Status Comme nts Flu vaccine no Preserv 3 and > Unknown 05/06/2016 Admin istered Influenza Unknown 05/12/2019 Administered Problems Problem Type SNOMED Code ICD Code Onset Dates Problem Status W/U Status Risk Notes Problem 942697483 Encounter for screening for malignant neoplasm of colon (Z12.11) Active confirmed Problem 102822847 History of adenomatous polyp of colon (Z86.010) Active confirmed Problem 93987153 Irritable bowel syndrome without diarrhea (K58.9) Active confirmed Problem 044926144 Abdominal pain, left upper quadrant (R10.12) Active confirmed Plan Of Treatment Future Test Test Name Order Date COLONOSCOPY 05/23/2013 COLONOSCOPY 08/03/2019 Insurance Providers Payer Name Payer Address Payer Phone Subscriber Number Group Number Insured Name Patient Relationship to Insured Coverage Start Date Coverage End Date [facility] [address] [place] [address] [id number] BELKIS SAMPSON Self - patient is the insured Medical (General) History Medical History History ICD Code Migraines Asthma Hypertension Back pain DM Denies DE,CVA,renal disease GERD--EGD 09/2012 with mild g astritis and H.pylori--the H. pylori has not been treated Neg. abd U/S in 09/2012 Colonoscopy 2004 was negativ e; Colonoscopy in 07/2013-1 tubular adenoma removed Hyperlipidemia IBS--chronic LUQ discomfort Kidney stones Surgical History Surgery Date(Month/Year) tubal ligation eye surgery left knee replacement--Dr. Craft 04/30 14
--- OUTSIDE RECORDS SUMMARY | 2025-01-29 08:09 | XMS_ITS | Patient Health Record ---
Author Organization [facility] Address [address] [place] [address] Care Team Providers Care Technical Account Manager Name Role Phone Carmen Santiago Primary Care Provider Unavailab Risa Castellanos Unavailable [phone] Nyla Welsh Unavailable [phone] Allergies Allergen (clinical drug ingredient) Drug/Non Drug Allergy documented on EMR Reaction Allergy Type Onset Date Status amoxicillin Amoxicillin Unknown Drug Allergy Act parth Penicillin Unknown Drug Allergy Active Results Component Value Reference Range Notes HEMOGLOBIN A1C (GLYCOHEMOGLO BIN) Reviewed date:12/07/2024 07:58:58 AM Interpretation: Performing Lab: Notes/Report: HEMOGLOBIN A1C % (HH) 6.5 Reason For Referral No Information Medications Medication SIG (Take, Route, Frequency, Duration) Notes Start Date End Date Status Irbesartan 300 MG 1 tablet Orally Once a day; Duration: 30 day(s) Active metFORMIN HCl ER 500 MG 1 tablet with ev ening meal Orally Once a day; Duration: 30 day(s) Active Magnesium Active Vitamin D3 50 MCG (1999 UT) as directed Orally Once a day Active amLODIPine Besylate 5 MG 1 tablet Orally Once a day; Duration: 30 day(s) Active Extra Depth Orthopedic Shoes (1 Pair) with Customized Heat Molded Multidensity Innersoles (3 Pair) as directed Dx: NIDDM/Polyneuropathy (E11.42), Hammertoe Foot Deformity (M20.41,M20.42), Preulcerative Skin Lesion(s) (L85.1 05/28/2023 Active Isosorbide Mononitrate ER 30 MG 1 tablet in the morning Orally Once a day; Duration: 30 day(s) Active Metoprolol Succinate 50 MG 1 capsule Orally Once a day; Duration: 30 day(s) Active Ammonium Lactate 12 % APPLY TO THE AFFEC JAYDON AREA(S) ON FEET TWICE DAILY NEEDED FOR DRY SKIN; Duration: 30 Active Oyster Shell Calcium/D 500-200 MG-UNIT 1 tablet Orally Active Rosuvastatin Calcium 10 MG 1 tablet Orally Once a day; Duration: 30 day(s) Active Aspirin 81 81 MG 1 tablet Orally Once a day; Duration: 30 day(s) Active Extra Depth Orthopedic Shoes (1 Pair) with Customized Heat Molded Multidensity Innersoles (3 Pair) as directed Dx: NIDDM/Polyneuropathy (E11.42), Hammertoe Foot Deformity (M20.41,M20.42), Preulcerative Skin Lesion(s) (L85.1 09/13/2024 Active Farxiga 10 MG 1 tablet Orally Once a day Active Gabapentin 100 MG 1 capsule Orally Onc e a day; Duration: 30 day(s) Active Extra Depth Orthopedic Shoes (1 Pair) with Customized Heat Molded Multidensity Innersoles (3 Pair) as directed Dx: NIDDM/Polyneuropathy (E11.42), Hammertoe Foot Deformity (M20.41,M20.42), Preulcerative Skin Lesion(s) (L85.1 05/27/2020 Not-Taking Immunizations Vaccine Route Administration Date Status Comme nts Influenza Unknown 03/29/2020 Administered Influenza Unknown 06/09/2021 Administered Influenza Unknown 05/27/2023 Administered COVID-19 Moderna Vaccine Unknown 12/25/2020 Administered First Dose:12/04 Social History Tobacco Use: Social History Observation Description Date Details (start date - stop date) Never Smoker NA - NA Tobacco use other than smoking: Question Answer Notes Are you an other tobacco user? No Tobacco Control (Standard) Question Answer Notes Tobacco use: Nonsmoker Additional Findings: Tobacco non-user Current no nsmoker AUDIT-C (Standard) Question Answer Notes Did you have a drink containing alcohol in the p ast year? No Points 0 Interpretation Negative Problems Problem Type SNOMED Code ICD Code Onset Dates Problem Status W/U Status Risk Notes Problem Acquired hammer toe of right foot (3895268290592181 ) Other hammer toe(s) (acquired), right foot (M20.41) Active confirmed Problem Acquired hammer toe of left foot (8974875536730361 ) Other hammer toe(s) (acquired), left foot (M20.42) Active confirmed Problem Polyneuropathy due to type 2 diabetes mellitus (774596349) Type 2 diabetes mellitus with diabetic polyneuropathy (E11.42) Active confirmed Problem Hammer toe of right foot (M20.41) Active confirmed Problem Neuropathy (231476558) Neuropathy (G62.9) Active confirmed Problem Osteoarthritis o f right ankle and foot (M19.071) Active confirmed Vital Signs Blood pressure diastolic 70 mm Hg 12/07/2024 Height 7ju86we in 12/07/2024 Blood pressure systolic 160 mm Hg 12/07/2024 Weight 235 lbs 12/07/2024 BMI 47.46 kg/m2 12/07/2024 Encounters Encounter Location Date Provider Diagnosis [address] [address] 04/11/2024 Risa Chen Type 2 diabetes mellitus with diabetic polyneuropathy E11.42 and Xerosis of skin L85.[address] [address] 06/30/2024 Risa Chen Type 2 diabetes mellitus with diabetic polyneuropathy E11.42 and Xerosis of skin L85.[address] [address] 09/13/2024 Risa Chen Type 2 diabetes mellitus with diabetic polyneuropathy E11.42 ; Xerosis of skin L85.3 ; Other hammer toe(s) (acquired), right foot M20.41 and Other hammer toe(s) (acquired), left foot M20.[address] [address] 12/07/2024 Nyla Welsh Type 2 diabetes mellitus with diabetic polyneuropathy E11.42 Assessments Encounter Date Diagnosis (ICD Code) Assessment Notes Treatment Notes Treatment Clinical Notes Section Notes 04/11/2024 Type 2 diabetes mellitus with diabetic polyneuropathy (ICD-10 - E11.42) 04/11/2024 Xerosis of skin (ICD-10 - L85.3) 06/30/2024 Type 2 diabetes mellitus with diabetic polyneuropathy (ICD-10 - E11.42) 06/30/2024 Xerosis of skin (ICD-10 - L85.3) 09/13/2024 Type 2 diabetes mellitus with diabetic polyneuropathy (ICD-10 - E11.42) 12/07/2024 Type 2 diabetes mellitus with diabetic polyneuropathy [...] 05/27/2020 Next Appt Details Provider Name:Risa singh, 03/13/2025 11:00:00 AM, [address] [place] [address], [phone], Insurance Providers Payer Name Payer Address Payer Phone Subscriber Number Group Number Insured Name Patient Relationship to Insured Coverage Start Date Coverage End Date [facility] [employer] SCO Claims [address] [place] [address] [id number] Karon Howard Self - patient is the insured Medical (General) History Medical History History ICD Code Arthritis asthma type I diabetes Headaches High blood pressure Cataracts Joint implants/screws Cholesterol Surgical History Surgery Date(Month/Year) cataract removal 06/2024
== END 2025-01-29 08:07 | disposition home or self-care (01) ==
LOC: HO.MAMMO 08:06
PROVIDERS: PCP General Practice; Visit Provider General Practice
DX: Z12.31 Encounter for screening mammogram for malignant neoplasm of breast (principal)
CPT/HCPCS: 77063; 77067

== ENCOUNTER → 2025-01-29 09:15 | Outpatient (BNV) | payer OTHER, SELFPAY | PROVIDERS: PCP General Practice; Visit Provider Radiology Body Imaging | DX: Z12.31 Encounter for screening mammogram for malignant neoplasm of breast (principal) | CPT/HCPCS: 77063; 77067 ==

== ENCOUNTER 2025-02-26 08:41 | Outpatient (AMB) | payer OTHER, SELFPAY ==
--- NOTE | 2025-02-26 09:00 | A.OFFVIS_ITS ---
Vital Signs 02/26/25 09:23 Height 4 ft 11 in Weight 231 lb BMI 46.7 BP 132/76 Blood Pressure Location Lt brachial Position Sitting Pulse 76 Pulse Oximetry (%) 96 Oxygen Delivery Method Room Air Intake Visit Reasons: f/u Intake Note: Patient follow up for abdominal pain Patient cc: abdominal pain/bloating on and off, GERD/gassy on and off, choking sensation come and go, denies any other GI issues. Class A Regional Drivers Required: Yes Class A Regional D[place] [facility] Accompanied by: Self / Same As Patient Allergies Penicillins (PENICILLINS) Allergy (Intermediate, Verified 02/26/25 09:00) HIVES fluticasone (From Advair Diskus) Allergy (Mild, Verified 02/26/25 09:00) Unknown potassium Allergy (Mild, Verified 02/26/25 09:00) Unknown salmeterol (From Advair Diskus) Allergy (Mild, Verified 02/26/25 09:00) Unknown HPI HPI f/u: Details: LAST VISIT: Gallbladder polyp Irritable bowel syndrome GERD (gastroesophageal reflux disease) LUQ pain Postprandial abdominal bloating Plan Continue avoiding dietary triggers. Discussed with patient low FODMAP diet. Patient is unable to read and she will show her FODMAP diet instructions to her daughter who will help her. Continue omeprazole. Will check lipase, vitamin-D, B12 and folate. Will also do abdominal ultrasound with liver elastography. Long discussion about avoiding food high in fat, carbs. Eat more protein and vegetables. Follow-up in 4 months, sooner on as needed basis. She is agreeable to this plan and verbalizes understanding of instructions. She was given the opportunity to ask questions and all questions answered. ? Thank you for allowing me to participate in her care Orders Lipase Today R10.9 Vitamin D 25-OH (D2 and D3) Today E55.9 Vitamin B12 and Folate Today R19.7 US abdomen martines w elastography Today K76.0 TODAY'S VISIT Patient is here today for follow-up. Patient reports occasional abdominal bloating. Denies dyspepsia, dysphagia or odynophagia. Occasional acid reflux depending on what she eats. Ultrasound results as well as lab results discussed with patient. A1c elevated 9.4%. Patient is due to go for colonoscopy. Last colonoscopy in 2019, tubular adenoma found. Patient denies melena, hematochezia, unintentional weight loss or ribbon like stools. Patient denies any issues with anesthesia in the past. Not on any anticoagulation medication. History of sleep apnea. Patient denies any cardiac or respiratory symptoms. [facility] Medical History (Updated 11/30/24 @ 10:44 by Radha Blackwell CNM) Endometrial cancer Renal calculi Irritable bowel syndrome Microscopic hematuria Eczema GERD (gastroesophageal reflux disease) Bursitis of heel Achilles tendinitis Juvenile xanthogranuloma Pilar cysts Hypercholesterolemia Kidney stones Osteoarthritis of right knee Osteoarthritis of left knee Hypertension Diabetes mellitus Surgical History History of surgery Hx of total knee arthroplasty (~2017) History of tubal ligation Social History Household Members: None Housing: Apartment Alcohol intake: never Patient Tobacco Use Status: Never used Tobacco Current occupational status: disabled Female Reproductive History Menstrual Age of Menarche: 13 Review of Systems Const Denies weight gain and Denies weight loss ENT Reports no additional complaints, Denies dysphagia and Denies odynophagia Card Reports no additional complaints Resp Reports no additional complaints GI Reports abdominal pain (LUQ), Denies belching, Denies melena, Reports bloating, Denies change in bowel habits, Denies dysphagia, Denies excessive flatus, Denies dyspepsia, Reports heartburn (Occasional), Denies diarrhea, Denies loose stools, Denies nausea, Denies odynophagia and Denies vomiting Reports no additional complaints Musc Reports no additional complaints Neuro Reports no additional complaints Psych Reports no additional complaints Endo Reports no additional complaints Physical Exam Vital Signs: Last Vital Signs Pulse 76 02/26/25 09:23 BP 132/76 02/26/25 09:23 Pulse Ox 96 02/26/25 09:23 Oxygen Delivery Method Room Air 02/26/25 09:23 BMI result Body Mass Index 46.7 Const General: healthy appearing and no acute distress Nutritional Appearance: obese Orientation/consciousness: patient oriented x3 Resp Effort & Inspection: normal respiratory effort, able to speak in complete sentences, no tracheal deviation and symmetric chest movement Auscultation: clear to auscultation bilaterally Cardio Rate: regular rate GI Inspection: Yes normal to inspection and No distended Palpation (GI): Soft to palpation, not firm, nontender and No hepatosplenomegaly present Auscultation: normal bowel sounds General: Yes no CVA tenderness Back/Spine/Pelvis Back: no CVA tenderness Skin General skin exam: elasticity normal, turgor normal and dry skin Neuro General: patient oriented x3 Psych Appearance: grossly normal Mental Status: mental status grossly normal Thought process: Normal thought process present Results Reviewed Results Reviewed: LIVER ULTRASOUND WITH ELASTOGRAPHY FINDINGS: Liver: The liver is normal in size, but demonstrates increased echotexture, consistent with steatosis. No focal mass or intrahepatic biliary ductal dilatation is identified. There is normal hepatopedal flow in the portal vein. Ultrasound elastography of the liver was performed with 10 separate measurements of the liver parenchyma with the patient in the supine position. Measurements were obtained approximately 2 cm below Elenita's capsule and perpendicular to the capsule. Images are of satisfactory quality. The median shear wave velocity is 1.23 m/s. The interquartile range/median (IQR/median) is 0.35. Gallbladder and biliary tree: There are shadowing calculi in the gallbladder. There is no wall thickening or pericholecystic fluid. There is no sonographic Mccallum sign. The common bile duct is normal in caliber measuring 4 mm. Right kidney: The right kidney measures 10.1 cm in length. The right kidney is unremarkable, without evidence of masses, hydronephrosis, or calculi. Pancreas: The pancreatic head, neck, and body are unremarkable. The pancreatic tail is obscured by bowel gas. Abdominal aorta and inferior vena cava: The visualized portions of the abdominal aorta and inferior vena cava are normal in caliber. There is no free fluid in the abdomen. US/US abdomen martines w elastography IMPRESSION: Hepatic steatosis. Cholelithiasis without evidence of acute cholecystitis. The median shear wave velocity is 1.23 m/s, corresponding to a median liver stiffness of 4.61 kPa. The IQR/median value is 0.35. This is indicative of a poor quality data set, and the estimated liver stiffness may be unreliable. Findings are indicative of a normal elastography value with a low likelihood of severe fibrosis or cirrhosis. Laboratory Tests 10/10/24 07:54 Hemoglobin A1c % 9.4 H Ferritin 97 Total Bilirubin 0.7 AST 27 ALT 31 Alkaline Phosphatase 133 H Triglycerides 248 H Cholesterol 207 H LDL Cholesterol, Calc 116 H Vitamin B12 918 H Assessment & Plan Assessment & Plan (1) Gallbladder polyp: Code(s): K82.4 - Cholesterolosis of gallbladder Category: Medical (2) Irritable bowel syndrome: Code(s): K58.9 - Irritable bowel syndrome, unspecified Category: Medical Qualifiers: Irritable bowel syndrome type: without diarrhea Qualified Code(s): K58.9 - Irritable bowel syndrome, unspecified (3) GERD (gastroesophageal reflux disease): Code(s): K21.9 - Gastro-esophageal reflux disease without esophagitis Category: Medical Qualifiers: Esophagitis presence: esophagitis presence not specified Qualified Code(s): K21.9 - Gastro-esophageal reflux disease without esophagitis (4) LUQ pain: Code(s): R10.12 - Left upper quadrant pain Category: Medical (5) Postprandial abdominal bloating: Code(s): R14.0 - Abdominal distension (gaseous) Category: Medical (6) NAFLD (nonalcoholic fatty liver disease): Comment: reinforced importance of good weight, cholesterol and glucose control Code(s): K76.0 - Fatty (change of) liver, not elsewhere classified Category: Medical (7) Screen for colon cancer: Code(s): Z12.11 - Encounter for screening for malignant neoplasm of colon Plan Discussed with patient avoiding dietary triggers in late night snacking. Staying upright for minimum 3 hours after meals discussed with patient. Discussed with patient will FODMAP diet. Also discussed low-fat, low carb, low- salt and high-protein diet. Weight loss recommended. Try exercising like going for walk. Patient is due to go for colonoscopy. Message sent to surgical endoscopist to book procedure for patient. What to expect before during and after procedure discussed with patient. Instructions given to patient on how to prep. Stressed the importance of good bowel prep and clear liquid diet day before procedure. I will see patient after the procedure, sooner on as needed basis. She is agreeable to this plan and verbalizes understanding of instructions. She was given the opportunity to ask questions and all questions answered. Thank you for allowing me to participate in her care Orders: Orders Hemoglobin A1c Today Z83.3 - Family history of diabetes mellitus Liver Panel Today R74.01 - Elevation of levels of liver transaminase levels Medications: New bisacodyl (Dulcolax (bisacodyl)) take 4 tabs at noon the day before your colonoscopy 20 mg (4 x 5 mg) PO ONCE 4 tabs 0RF constipation 1 day Z12.11 - Encounter for screening for malignant neoplasm of colon polyethylene glycol 3350 (Miralax) As directed by gastroenterology department at [facility] 238 grams PO ONCE 238 grams 0RF Z12.11 - Encounter for screening for malignant neoplasm of colon Coding Level of Care Code Est Pt Level 4 (06472) Complex EM visit Add On G2211 Diagnoses Gallbladder polyp K82.4 Irritable bowel syndrome without diarrhea K58.9 Irritable bowel syndrome type: without diarrhea Gastroesophageal reflux disease, unspecified whether esophagitis present K21.9 Esophagitis presence: esophagitis presence not specified LUQ pain R10.12 Postprandial abdominal bloating R14.0 NAFLD (nonalcoholic fatty liver disease) K76.0 Screen for colon cancer Z12.11 Time Spent (min) 40 Comment 25 minutes spent with patient and additional 15 minutes spent reviewing her records
--- OUTSIDE RECORDS SUMMARY | 2025-02-26 09:03 | XMS_ITS | Patient Health Record ---
Demographics Address [address] [place] [address] Mobile Preferred Language Unknown Marital Status Unknown Protestant Affiliation Unknown Race Ethnic Group or Author Organization [facility] Address [address] [place] [address] Care Team Providers Care Talent Development Manager Name Role Phone Tyson Cam NP Primary Care Provider Celso Zepeda Unavailable [phone] Allergies Allergen (clinical drug ingredient) Drug/Non Drug [...] Problem Status W/U Status Risk Notes Problem 224949359 Encounter for screening for malignant neoplasm of colon (Z12.11) Active confirmed Problem 738549485 History of adenomatous polyp of colon (Z86.010) Active confirmed Problem 98411523 Irritable bowel syndrome without diarrhea (K58.9) Active confirmed Problem 273826686 Abdominal pain, left upper quadrant (R10.12) Active confirmed Plan Of Treatment Future Test Test Name Order Date COLONOSCOPY 05/23/2013 COLONOSCOPY 08/03/2019 Insurance Providers Payer Name Payer Address Payer Phone Subscriber Number Group Number Insured Name Patient Relationship to Insured Coverage Start Date Coverage End Date [facility] [address] [place] [address] [id number] BELKIS SAMPSON Self - patient is the insured Medical (General) History Medical History History ICD Code Migraines Asthma Hypertension Back pain DM Denies [place],CVA,renal disease GERD--EGD 09/2012 with mild g astritis and H.pylori--the H. pylori has not been treated Neg. abd U/S in 09/2012 Colonoscopy 2004 was negativ e; Colonoscopy in 07/2013-1 tubular adenoma removed Hyperlipidemia IBS--chronic LUQ discomfort Kidney stones Surgical History Surgery Date(Month/Year) tubal ligation eye surgery left knee replacement--Dr. Craft 04/30 14
--- OUTSIDE RECORDS SUMMARY | 2025-02-26 09:03 | XMS_ITS | Patient Health Record ---
Author Organization [facility] Address [address] [place] [address] Care Team Providers Care Change Agent Name Role Phone Carmen Santiago Primary Care Provider Unavailab Risa Castellanos Unavailable [phone] Nyla Welsh Unavailable [phone] Allergies Allergen (clinical drug ingredient) Drug/Non Drug [...] Problem Acquired hammer toe of right foot (0611312736126528 ) Other hammer toe(s) (acquired), right foot (M20.41) Active confirmed Problem Acquired hammer toe of left foot (4205917667983453 ) Other hammer toe(s) (acquired), left foot (M20.42) Active confirmed Problem Polyneuropathy due to type 2 diabetes mellitus (002043901) Type 2 diabetes mellitus with diabetic polyneuropathy (E11.42) Active confirmed Problem Acquired hammer toe of right foot (6292145803901851 ) Hammer toe of right foot (M20.41) Active confirmed Problem Neuropathy (383134035) Neuropathy (G62.9) Active confirmed Problem Localized, primary osteoarthritis of the ankle and/or foot (940170138) Osteoarthritis of right ankle and foot (M19.071) Active confirmed Vital Signs Blood pressure diastolic 70 mm Hg 12/07/2024 Height 8mw18hw in 12/07/2024 Blood pressure systolic 160 mm Hg 12/07/2024 Weight 235 lbs 12/07/2024 BMI 47.46 kg/m2 12/07/2024 Encounters Encounter Location Date Provider Diagnosis [address] [address] 04/11/2024 Risa Chen Type 2 diabetes mellitus with diabetic polyneuropathy E11.42 and Xerosis of skin L85.[address] [address] 06/30/2024 Risa Chen Type 2 diabetes mellitus with diabetic polyneuropathy E11.42 and Xerosis of skin L85.[address] [address] 09/13/2024 Risa Chen Type 2 diabetes mellitus with diabetic polyneuropathy E11.42 ; Xerosis of skin L85.3 ; Other hammer toe(s) (acquired), right foot M20.41 and Other hammer toe(s) (acquired), left foot M20.[address] [address] 12/07/2024 Nyla Welsh Type 2 diabetes mellitus [...] Details Provider Name:Risa singh, 03/13/2025 11:00:00 AM, [address] [place] [address], [phone], Insurance Providers Payer Name Payer Address Payer Phone Subscriber Number Group Number Insured Name Patient Relationship to Insured Coverage Start Date Coverage End Date [facility] SCO Claims [address] [facility] [place] [address] [id number] Karon Howard Self - patient is the insured Medical (General) History Medical History History ICD Code Arthritis asthma type I diabetes Headaches High blood pressure Cataracts Joint implants/screws Cholesterol Surgical History Surgery Date(Month/Year) cataract removal 06/2024
--- OUTSIDE RECORDS SUMMARY | 2025-02-26 09:03 | XMS_ITS | Encounter Summary ---
Author Organization [employer] Address [address] [place] [address] [address] [place] [address] Care Team Providers Care Chief Of Surgery Name Role Phone Amina Nieves MD Primary Care Provider [phone] Reason for Visit * Reason Comments Med Refill Encounter Details Date Type Department Care Team ([facility] st Contact Info) Description 02/26/2025 Refill [facility] [address] [place], [place] [phone] Amina Nieves MD [address] [place], [place] [phone] Social History Tobacco Use Types Packs/Day Years [...] as of this encounter Care Teams Chief Of Surgery Relationship Specialty Start Date End Date Amina Nieves MD [address] [place] [address] PCP - General Family Medicine 04/07/21 documented as of this encounter
[2025-02-26 09:23] VITALS: BP 132/76; PULSE 76; O2SAT 96; BMI 46.7
== END 2025-02-26 12:32 | disposition home or self-care (01) ==
LOC: HO.HGI 08:42
PROVIDERS: PCP General Practice; Visit Provider Nurse Practitioner Family
DX: K82.4 Cholesterolosis of gallbladder (principal); K58.9 Irritable bowel syndrome, unspecified; K21.9 Gastro-esophageal reflux disease without esophagitis; R10.12 Left upper quadrant pain; R14.0 Abdominal distension (gaseous); K76.0 Fatty (change of) liver, not elsewhere classified
CPT/HCPCS: 99214; G2211

== ENCOUNTER → 2025-02-26 08:41 | Outpatient (BNVA) | payer OTHER, SELFPAY | PROVIDERS: PCP General Practice; Visit Provider Nurse Practitioner Family | DX: K82.4 Cholesterolosis of gallbladder (principal); K58.9 Irritable bowel syndrome, unspecified; K21.9 Gastro-esophageal reflux disease without esophagitis; R10.12 Left upper quadrant pain; R14.0 Abdominal distension (gaseous); K76.0 Fatty (change of) liver, not elsewhere classified; Z12.11 Encounter for screening for malignant neoplasm of colon | CPT/HCPCS: 99212 ==

== ENCOUNTER 2025-02-27 07:42 | Outpatient (REF) | payer OTHER, SELFPAY ==
--- OUTSIDE RECORDS SUMMARY | 2024-11-28 06:00 | XMS_ITS ---
Author Organization [facility] Address [address] [place] [address] Care Team Providers Care Dictaphone Operator Name Role Phone Carmen Santiago Primary Care Provider Unavailab Risa Castellanos Unavailable [phone] Yancey Encounters Encounter Location Date Provider Diagnosis [facility] [address] [place] [address] 11/28/2024 Risa Chen Plan Of Treatment Next Appt Details Provider Name:Risa singh, 03/13/2025 11:00:00 AM, [address] [place], [address], Progress Notes * Cheri ARELLANOsDOB: [birth year] (69 yo F)Acc No.[id number]:11/28/2024 Progress Note Patient: Supriya QUIROGA Karon Provider: Chuck Chen DPM :1955 A ge:69 Y S ex:Female Date:11/28/2024 Address:[address] [place] [address] [address], [place], [place] Pcp:Carmen Santiago Subjective: * Chief Complaints: * [...] 11/28/2024 Generated for Cheryl bundy/Rashard/Pedro on: 0 02/27/2025 07:45 AM EDT
--- OUTSIDE RECORDS SUMMARY | 2025-02-27 07:45 | XMS_ITS | Patient Health Record ---
Demographics Address [address] [facility] [place] [address] Mobile Preferred Language Unknown Marital Status Unknown Rastafarian Affiliation Unknown Race Ethnic Group or Author Organization [facility] Address [address] [place] [address] Care Team Providers Care Traveling Accountant Name Role Phone Tyson Cam NP Primary Care Provider Celso Zepeda Unavailable [phone] Allergies Allergen (clinical drug ingredient) Drug/Non Drug [...] Problem Status W/U Status Risk Notes Problem 331724013 Encounter for screening for malignant neoplasm of colon (Z12.11) Active confirmed Problem 790939026 History of adenomatous polyp of colon (Z86.010) Active confirmed Problem 38697957 Irritable bowel syndrome without diarrhea (K58.9) Active confirmed Problem 626603300 Abdominal pain, left upper quadrant (R10.12) Active confirmed Plan Of Treatment Future Test Test Name Order Date COLONOSCOPY 05/23/2013 COLONOSCOPY 08/03/2019 Insurance Providers Payer Name Payer Address Payer Phone Subscriber Number Group Number Insured Name Patient Relationship to Insured Coverage Start Date Coverage End Date [facility] [address] [place] [address] [id number] BELKIS SAMPSON Self - patient is the insured Medical (General) History Medical History History ICD Code Migraines Asthma Hypertension Back pain DM Denies [place],CVA,renal disease GERD--EGD 09/2012 with mild g astritis and H.pylori--the H. pylori has not been treated Neg. abd U/S in 09/2012 Colonoscopy 2004 was negativ e; Colonoscopy in 07/2013-1 tubular adenoma removed Hyperlipidemia IBS--chronic LUQ discomfort Kidney stones Surgical History Surgery Date(Month/Year) tubal ligation eye surgery left knee replacement--Dr. Craft 04/30 14
[2025-02-27 08:32] LABS: Hemoglobin A1C 254.6734 umol/L; Total Hemoglobin (HGBA1C) 3374.0490 umol/L
[2025-02-27 08:51] LABS: Alanine Aminotransferase 36 U/L (0-31); Albumin Level 4.4 g/dL (3.5-5.0); Alkaline Phosphatase 118 U/L (39-117); Aspartate Amino Transferase 30 U/L (5-31); Total Protein 7.3 g/dL (6.5-8.0)
== END 2025-02-27 07:43 | disposition home or self-care (01) ==
LOC: HO.LAB 07:42
PROVIDERS: PCP Pediatrics; Visit Provider Nurse Practitioner Family
DX: R74.01 Elevation of levels of liver transaminase levels (principal); Z13.1 Encounter for screening for diabetes mellitus; Z83.3 Family history of diabetes mellitus
CPT/HCPCS: 36415; 80076; 83036

== ENCOUNTER 2025-03-14 20:27 | Emergency (ER) | payer OTHER, SELFPAY ==
--- OUTSIDE RECORDS SUMMARY | 2024-11-28 06:00 | XMS_ITS ---
Author Organization [facility] Address [address] [place] [address] Care Team Providers Care Hand Polisher Name Role Phone Carmen Santiago Primary Care Provider Unavailab Risa Castellanos Unavailable [phone] Yancey Encounters Encounter Location Date Provider Diagnosis [facility] [address] [place] [address] 11/28/2024 Risa Chen Plan Of Treatment Next Appt Details Provider Name:Risa singh, 05/29/2025 11:00:00 AM, [address] [place], [address], Progress Notes * Cheri ARELLANOsDOB: [birth year] (69 yo F)Acc No.[id number]:11/28/2024 Progress Note Patient: Supriya QUIROGA Karon Provider: Chuck Chen DPM :1955 A ge:69 Y S ex:Female Date:11/28/2024 Address:[address] [place] [address] [address], [place], [place] Pcp:Carmen Santiago Subjective: * Chief Complaints: * [...] 11/28/2024 Generated for Cheryl bundy/Rashard/Pedro on: 0 03/14/2025 11:05 PM EDT
--- OUTSIDE RECORDS SUMMARY | 2025-03-13 07:00 | XMS_ITS ---
Author Organization [facility] Address [address] [place] [address] Care Team Providers Care Director Biostatistics Name Role Phone Carmen Santiago Primary Care Provider Unavailab Risa Castellanos Unavailable [phone] Allergies Allergen (clinical drug ingredient) Drug/Non Drug [...] NEEDED FOR DRY SKIN; Duration: 30 Active Extra Depth Orthopedic Shoes (1 Pair) with Customized Heat Molded Multidensity Innersoles (3 Pair) as directed Dx: NIDDM/Polyneuropathy (E11.42), Hammertoe Foot Deformity (M20.41,M20.42), Preulcerative Skin Lesion(s) (L85.1 05/27/2020 Not-Taking Irbesartan 300 MG 1 tablet Orally Once a day; Duration: 30 day(s) Active metFORMIN HCl ER 500 MG 1 tablet with ev ening meal Orally Once a day; Duration: 30 day(s) Active Vitamin D3 50 MCG (2000 UT) [...] (M20.41,M20.42), Preulcerative Skin Lesion(s) (L85.1 09/13/2024 Active Gabapentin 100 MG 1 capsule Orally Onc e a day; Duration: 30 day(s) Active Isosorbide Mononitrate ER 30 MG 1 tablet in the morning Orally Once a day; Duration: 30 day(s) Active Metoprolol Succinate 50 MG 1 capsule Orally Once a day; Duration: 30 day(s) Active Oyster Shell Calcium/D 500-200 MG-UNIT 1 tablet Orally Active Rosuvastatin Calcium 10 MG 1 tablet Orally Once a day; Duration: 30 day(s) Active Farxiga 10 MG 1 [...] ast year? No Points 0 Interpretation Negative Vital Signs Height 4ft 11in in 03/13/2025 Weight 235 lbs 03/13/2025 BMI 47.46 kg/m2 03/13/2025 Blood pressure systolic 160 mm Hg 03/13/20 25 Blood pressure diastolic 70 mm Hg 025 Encounters Encounter Location Date Provider Diagnosis [facility] [address] [place] [address] 03/13/2025 Risa Chen Type 2 diabetes mellitus with diabetic polyneuropathy E11.42 Assessments Encounter Date Diagnosis (ICD Code) Assessment Notes Treatment Notes Treatment Clinical Notes Section Notes 03/13/2025 Type 2 diabetes mellitus with diabetic polyneuropathy (ICD-10 - E11.42) Plan Of Treatment Next Appt Details Follow Up: 3 Months, Reason: Provider Name:Risa singh, 05/29/2025 11:00:00 AM, [address] [place] [address], [phone], Procedure Notes * Category Sub-Category Detail Notes [...] stated and described in the exam ( Medial plantar, IPJ, TA, T5, SUB MTH (s), 1, B/L, Plantar Heel(s), B/L), were pared, and/or cut utilizing a sterile 15 blade, tissue nippers, and/or power dremel instrumentation by the physician of record - [id number] Nail Reduction Nail Reduction (-27) Trimming o [...] * Cheri ARELLANOsDOB: [birth year] (69 yo F)Acc No.[id number]:03/13/2025 Progress Note Patient: Karon BAEZ Provider: Chuck Chen DPM :1955 A ge:69 Y S ex:Female Date:03/13/2025 Address:[address] [place], [place] [phone] Pcp:Carmen Santiago Subjective: * Chief Complaints: * A t Risk Footcare * HPI: A t Risk footcare: Pt States Last PCP Visit: D ate 0 07/12/2024 * ROS: G eneral/Constitutional: Nausea d enies. V omiting d enies. H pierre Thirst d enies. L oss appetite d enies. C hills d enies. F atigue d enies.?Fever d enies. N ight Sweats d enies. U nexplained weight loss d enies. U nexplained weight gain d enies. H EENTM: Dentures d enies. D izziness d enies. G lasses/contacts d enies. R etinopathy d enies. B lurred/double vision d enies. T MJ?denies. D ischarge/drainage d enies. I mplants d enies. S ore throat d enies. D ental implants d enies. H emilie of hearing d enies. D ifficulty chewing/swallowing/speaking d enies. N ose bleeds d enies. S ore mouth d enies. ? R espiratory: On Oxygen d enies. P neumonia/pleurisy d enies.?Bronchitis d enies. E mphysema d enies. C oughing d enies. C ough blood?denies. S hortness of breath d enies. W heezing d enies. C ardiovascular: Pacemaker d enies. M TELEPHONE ENGINEER d enies. W PW d enies. C HF d enies. H eart attack d enies. S eptal defect d enies. R apid beat d enies. C hest pain d enies. A trial Fib. d enies. M urmur/Palpitations d enies. G astrointestinal: Hemorrhoids d enies. S tomach/Abdominal pain d enies. D ark blood stool d enies. I rritable bowel d enies. C onstipation d enies. D iarrhea d enies. H ematology: Swelling d enies. C lots d enies. V aricose Veins d enies. B ruising d enies. B leeding problem d enies. G enitourinary: Blood urine d enies. F requent/Painfu/urination/bladder control d enies. K idney stones d enies. I nfection (UTI) d enies. N ephropathy d enies. s ex trans dis (STD) d enies. P rostate d enies. M usculoskeletal: Hammertoes d enies. B unions d enies. B ack Pain d enies. M uscle Cramps/ Resting d enies. M uscle cramps / walking d enies.?Generalized aches and pains d enies. W eakness d enies. I nteg.: Roberts d enies. S cars d enies. C orns/calluses?denies. I ngrown nails d enies. P ainful nails d enies. O pen Sores d enies. R ashes d enies. N eurologic: Difficulty sleeping d enies. B rain disorder d enies. N umbness a dmits. B alance trouble d enies. C onfusion d enies. F ainting/blackouts d enies. T ingling a dmits. T remors d enies. * Medical History: * Surgical History: c ataract removal 06/2024 * Hospitalization/Major Diagno stic Procedure: N o Hospitalization History. * Family History: M other: . F ather: , diagnosed with Other malignant neoplasm of unspecified site. S on(s): diagnosed with Unspecified essential hypertension, Other specified conditions influencing health status. * Social History: T obacco Use: T obacco use other than smoking A re you an other tobacco user? N o Tobacco Control (Standard) T obacco use: N onsmoker A dditional Findings: Tobacco non-user C urrent nonsmoker M iscellaneous: C affeine: yes, frequency:, 1-2 cups per day. Children: yes. Exercise: no. Marital status: . Occupation: Retired. D rug/Alcohol: A CHRISTIE-C (Standard) D id you have a drink containing alcohol in the past year? N o P oints 0 I nterpretation N egative * Medications: T akingMagnesium amLODIPine Besylate 5 MG Tablet 1 tablet [...] Foot Deformity (M20.41,M20.42), Preulcerative Skin Lesion(s) (L85.1 Extra Depth Orthopedic Shoes (1 Pair) with Customized Heat Molded Multidensity Innersoles (3 Pair) as directed Dx: NIDDM/Polyneuropathy (E11.42), Hammertoe Foot Deformity (M20.41,M20.42), Preulcerative Skin Lesion(s) (L85.1 Ammonium Lactate 12 % Cream APPLY TO THE AFFECTED AREA(S) ON FEET TWICE DAILY NEEDED FOR DRY SKIN Taking Magnesium Taking amLODIPine Besylate 5 MG [...] Deformity (M20.41,M20.42), Preulcerative Skin Lesion(s) (L85.1 Taking Extra Depth Orthopedic Shoes (1 Pair) with Customized Heat Molded Multidensity Innersoles (3 Pair) as directed Dx: NIDDM/Polyneuropathy (E11.42), Hammertoe Foot Deformity (M20.41,M20.42), Preulcerative Skin Lesion(s) (L85.1 Taking Ammonium Lactate 12 % Cream APPLY TO THE AFFECTED AREA(S) ON FEET TWICE DAILY NEEDED FOR DRY SKIN Not-Taking/PRNExtra Depth Orthopedic Shoes (1 Pair) with [...] reviewed and reconciled with the patient * Allergies: A moxicillinPenicillinyes[Allergies Verified] Objective: * Vitals: H t: 4ft 11in, Wt:235, BMI:47.46, Shoe size: 8, BP:160/70mm Hg, BS: 125, Ht-cm: 149.86 cm, Wt-k.6 kg. * P ast Orders: L ab:HEMOGLOBIN A1C (GLYCOHEMOGLOBIN) (Order Date - 02/27/2025) (Collection Date & Time - 02/28/2025 10:51 AM) Value Reference Range HEMOGLOBIN A1C % (HH) 9.1 * Examination: O phthalmology Referral: DIABETES EYE EXAM P rocedure Performed: Y es D ate of Exam Performed 0 10/19/2024 F indings of Diabetic Eye Exam: n o retinopathy N eurological: SENSORY: ( Neuro) Neurological exam demonstrates a loss of protective sensation by an absence of tested sensitivity to 5.07 Gerry-Juancho monofilament at 2 or more sites out of 5 total locations, each foot. N ails: NAILS are: T A, T1, T2, T3, T4, T5, T6, T7, T8, T9, nails are elongated, overgrown, dystrophic. V ascular: DP PULSES (B): 3 /4, B/L. PT PULSES (B): 3 /4, B/L. CAPILLARY FILL TIME: i mmediate, all digits, B/L. TROPHIC CONDITION-TEXTURE/ELASTICITY/TURGOR/HAIR GROWTH (B):?normal, B/L. TEMPERTURE GRADIENT (C): n ormal, warm to cool, proximal to distal, B/L, B/L. D ermatologic: SKIN FINDINGS: S kin exam reveals Keratotic lesion(s) located at, Medial plantar, IPJ, TA, T5, SUB MTH (s), 1, B/L, Plantar Heel(s), B/L. ? Assessment: * Assessment: 1. T ype 2 diabetes mellitus with diabetic polyneuropathy - E11.42 (Primary) Plan: * Treatment: * Procedures: K eratoma Treatment: Parring or Cutting of Benign Hyperkeratotic Lesion(s) ( -57) More than 4 Lesions - Due to [...] stated and described in the exam ( M edial plantar, I PJ, T A, T 5, S UB MTH (s), 1 , B /L, P lantar Heel(s), B /L), were pared, and/or cut utilizing a sterile 15 blade, tissue nippers, and/or power dremel instrumentation by the physician of record - [id number]. N ail Reduction: Nail Reduction ( -27) Trimming of all dystrophic nails - Due [...] healthy nail plate or bed tissue - G0127. * Procedure Codes: G 0127 TRIMMING DYSTROPHIC NAILS ANY #, Modifiers: XS 26320 TRIM SKIN LESIONS, OVER 4, Modifiers: XS * Follow Up: 3 Months * Images: * Sign off status: Completed true * Provider: Chuck Chen, DPM Date: 03/13/2025 Generated for Cheryl bundy/Rashard/Pedro on: 03/14/2025 11:05 PM EDT History and Physical Notes * HPI (History of Present Illness) Category Sub-Category Detail Notes Category Not es At Risk footcare Pt States Last PCP Visit: Date: Examination Category Sub-Category Detail Notes Category Not es Neurological SENSORY: (Neuro) Neurolog ical exam demonstrates a loss of protective sensation by an absence of tested sensitivity to 5.07 Gerry-Juancho monofilament at 2 or more sites out of 5 total locations, each foot Dermatologic SKIN FINDINGS: Skin exam reveal s Keratotic lesion(s) located at, Medial plantar, IPJ, TA, T5, SUB MTH (s), 1, B/L, Plantar Heel(s), B/L Ophthalmology Referral DIABETES EYE EXAM Procedu re Performed:: Yes Date of Exam Performed: 10/19/2024 Findings of Diabetic Eye Exam:: no retin [...]
--- NOTE | ~2025-03-14 | CT_ITS ---
CLINICAL HISTORY: right flank pain CT abdomen and pelvis without contrast Comparison: CT/REG/[place]/SR - CT ABDOMEN PELVIS W IV CON - 02/03/23 13:47 EDT Findings: There is mild bibasilar atelectasis. There is mosaic attenuation in the lung bases consistent with air trapping. Partially visualized mild left atrial enlargement. There is a small pericardial effusion. There is mild hepatomegaly. There is cholelithiasis. Gallbladder appears otherwise normal. The pancreas, spleen, and adrenal glands are unremarkable. There is moderate right hydronephrosis. There is a 7 mm stone in the proximal right ureter. There are a couple small bilateral nonobstructing renal stones measuring up to 3 mm in the left kidney. The appendix is normal. The remainder of the gastrointestinal tract is unremarkable. There is a noiaf-wo-rgntokcr sized fat containing umbilical hernia. There are no enlarged lymph nodes. The aorta is normal in diameter. Patient is status post hysterectomy. The bladder is unremarkable. There are degenerative changes in the lumbar spine. There is no acute fracture or suspicious lytic or sclerotic lesion. IMPRESSION: 1. 7 mm proximal right ureteral stone with moderate hydronephrosis. 2. Small bilateral nonobstructing renal stones. 3. Cholelithiasis. 4. Small pericardial effusion. 5. Additional chronic findings as above. This document has been electronically signed by: Tommie Cates MD on 03/15/2025 00:48:09
[2025-03-14 20:29] VITALS: BP 168/85; PULSE 93; RESP 20; TEMP 36.7; O2SAT 98; BMI 47.9
[2025-03-14 20:58] LABS: MANUAL DIFF FLAG NO
[2025-03-14 21:01] LABS: Hematocrit 33.9 % (37.0-47.0); Hemoglobin 11.7 g/dl (12.0-16.0); Imm Gran Abs Auto 0.02 X10*3/uL (0.00-0.03); Imm Gran Pct Auto 0.2 % (0.0-0.4); Lymphocytes Absolute Auto 1.4 X10*3/uL (1.2-4.9); Mean Corpuscular HGB Conc 34.5 g/dl (31.0-35.0); Mean Corpuscular Hemoglobin 27.5 pg (27.0-33.0); Mean Corpuscular Volume 79.8 fL (80.0-98.0); NRBC Abs Auto 0.000 X10*3/uL (0.0-0.012); NRBC Pct Auto 0.0 /100WBC (0.0-0.2); Platelet Count 244 X10*3/uL (160-400); Red Blood Count 4.25 X10*6/uL (4.20-5.50); White Blood Count 9.5 X10*3/uL (4.8-10.8)
[2025-03-14 21:15] LABS: Alanine Aminotransferase 35 U/L (0-31); Albumin Level 4.2 g/dL (3.5-5.0); Alkaline Phosphatase 121 U/L (39-117); Anion Gap 13 (12-20); Aspartate Amino Transferase 27 U/L (5-31); Blood Urea Nitrogen 21 mg/dL (9-16); Calcium 9.8 mg/dL (8.4-10.2); Carbon Dioxide 23 mmol/L (22-29); Chloride 104 mmol/L (96-108); Creatinine Clr Calc Pharmacy 45.2; Estimated Glomerular Filt Rate 43; Lipase 36 U/L (8-78); Potassium 4.0 mmol/L (3.3-5.1); Sodium 136 mmol/L (135-145); Total Protein 7.2 g/dL (6.5-8.0)
[2025-03-14 23:00] LABS: Appearance Urine Clear; Glucose Urine UA >=1000 mg/dL (Negative); PH 5.5 (5.0-9.0); Specific Gravity - Urine 1.025 (1.005-1.025); UMIC TRIGGER UACC YES
--- OUTSIDE RECORDS SUMMARY | 2025-03-14 23:04 | XMS_ITS | Patient Health Record ---
Demographics Address [address] [facility] [address] [place] [address] Mobile Preferred Language Unknown Marital Status Unknown Sabianist Affiliation Unknown Race Ethnic Group or Author Organization [facility] Address [address] [place] [address] Care Team Providers Care Lawn Service Worker Name Role Phone Tyson Cam NP Primary Care Provider Celso Zepeda Unavailable [phone] Allergies Allergen (clinical drug ingredient) Drug/Non Drug [...] Problem Status W/U Status Risk Notes Problem 251823142 Encounter for screening for malignant neoplasm of colon (Z12.11) Active confirmed Problem 030510509 History of adenomatous polyp of colon (Z86.010) Active confirmed Problem 15637888 Irritable bowel syndrome without diarrhea (K58.9) Active confirmed Problem 428010347 Abdominal pain, left upper quadrant (R10.12) Active confirmed Plan Of Treatment Future Test Test Name Order Date COLONOSCOPY 05/23/2013 COLONOSCOPY 08/03/2019 Insurance Providers Payer Name Payer Address Payer Phone Subscriber Number Group Number Insured Name Patient Relationship to Insured Coverage Start Date Coverage End Date [facility] [address] [place] [address] [id number] BELKIS SAMPSON Self - patient is the insured Medical (General) History Medical History History ICD Code Migraines Asthma Hypertension Back pain DM Denies [place],CVA,renal disease GERD--EGD 09/2012 with mild g astritis and H.pylori--the H. pylori has not been treated Neg. abd U/S in 09/2012 Colonoscopy 2004 was negativ e; Colonoscopy in 07/2013-1 tubular adenoma removed Hyperlipidemia IBS--chronic LUQ discomfort Kidney stones Surgical History Surgery Date(Month/Year) tubal ligation eye surgery left knee replacement--Dr. Craft 04/30 14
--- OUTSIDE RECORDS SUMMARY | 2025-03-14 23:04 | XMS_ITS | Patient Health Record ---
Author Organization [facility] Address [address] [facility] [place] [address] Care Team Providers Care Senior Web Architect Name Role Phone Carmen Santiago Primary Care Provider Unavailab Risa Castellanos Unavailable [phone] Nyla Welsh Unavailable [phone] Allergies Allergen (clinical drug ingredient) Drug/Non Drug Allergy documented on EMR Reaction Allergy Type Onset Date Status amoxicillin Amoxicillin Unknown Drug Allergy Act parth Penicillin Unknown Drug Allergy Active Results Component Value Reference Range Notes HEMOGLOBIN A1C (GLYCOHEMOGLO BIN) Reviewed date:12/07/2024 07:58:58 AM Interpretation: Performing Lab: Notes/Report: HEMOGLOBIN A1C % (HH) 6.5 HEMOGLOBIN A1C (GLYCOHEMOGLO BIN) Reviewed date:03/13/2025 10:52:03 AM Interpretation: Performing Lab: Notes/Report: HEMOGLOBIN A1C % (HH) 9.1 Reason For Referral No Information Medications Medication SIG (Take, Route, Frequency, Duration) Notes Start Date End Date Status Irbesartan 300 MG 1 tablet Orally Once a day; Duration: 30 day(s) Active metFORMIN HCl ER 500 MG 1 tablet with ev ening meal Orally Once a day; Duration: 30 day(s) Active Magnesium Active amLODIPine Besylate [...] 1 tablet Orally Once a day Active Ammonium Lactate 12 % APPLY TO THE AFFEC JAYDON AREA(S) ON FEET TWICE DAILY NEEDED FOR DRY SKIN; Duration: 30 Active Gabapentin 100 MG 1 capsule Orally [...] as directed Orally Once a day Active Immunizations Vaccine Route Administration Date Status Comme nts Influenza Unknown 03/29/2020 Administered Influenza Unknown 06/09/2021 Administered Influenza Unknown 05/27/2023 Administered Influenza Unknown 03/13/2024 Administered COVID-19 Moderna Vaccine Unknown 12/25/2020 Administered [...] Problem Status W/U Status Risk Notes Problem Type 2 diabetes mellitus with diabetic polyneuropathy (E11.42) Active confirmed Vital Signs Blood pressure diastolic 70 mm Hg 03/13/2025 Height 4ft 11in in 03/13/2025 Blood pressure systolic 160 mm Hg 03/13/2025 Weight 235 lbs 03/13/2025 BMI 47.46 kg/m2 03/13/2025 Encounters Encounter Location Date Provider Diagnosis [address] [address] 04/11/2024 Risa Chen Type 2 diabetes mellitus with diabetic polyneuropathy E11.42 and Xerosis of skin L85.[address] [address] 06/30/2024 Risa Chen Type 2 diabetes mellitus with diabetic polyneuropathy E11.42 and Xerosis of skin L85.[address] [address] 09/13/2024 Risa Chen Type 2 diabetes mellitus with diabetic polyneuropathy E11.42 ; Xerosis of skin L85.3 ; Other hammer toe(s) (acquired), right foot M20.41 and Other hammer toe(s) (acquired), left foot M20.[address] [address] 12/07/2024 Nyla Welsh Type 2 diabetes mellitus with diabetic polyneuropathy E11.[address] [address] 03/13/2025 Risa Chen Type 2 diabetes mellitus [...] mellitus with diabetic polyneuropathy (ICD-10 - E11.42) 03/13/2025 Type 2 diabetes mellitus with diabetic [...] 05/27/2020 Next Appt Details Provider Name:Risa singh, 05/29/2025 11:00:00 AM, [address] [place] [address], [phone], Insurance Providers Payer Name Payer Address Payer Phone Subscriber Number Group Number Insured Name Patient Relationship to Insured Coverage Start Date Coverage End Date [facility] [employer] Claims [address] [place] [address] [id number] Karon Howard Self - patient is the insured Medical (General) History Medical History History ICD Code Arthritis asthma type I diabetes Headaches High blood pressure Cataracts Joint implants/screws Cholesterol Surgical History Surgery Date(Month/Year) cataract removal 06/2024
--- OUTSIDE RECORDS SUMMARY | 2025-03-14 23:04 | XMS_ITS | Encounter Summary ---
Demographics Address [address] [place] [address] [address] [place] [address] Work Phone Mobile Phone Home Phone Preferred Language es Marital Status Single Synagogue Affiliation Unknown Race Other Race Ethnic Group Unknown Author Organization [facility] Address [address] [place] [address] [address] [place] [address] Care Team Providers Care Continuous Mining Operator Name Role Phone Amina Nieves MD Primary Care Provider [phone] Encounter Details Date Type Department Care Team (Late st Contact Info) Description 03/14/2025 Orders Only GENERIC EXTERNAL DATA DEPARTMENT Provider, Generic External Data Social History Tobacco Use Types Packs/Day Years [...] as of this encounter Plan of Treatment Pending Results Name Type Priority Associated Diagnoses Date /Time Urinalysis, Complete, with Reflex to Culture Lab Routine 03/14/2025 10: 50 PM EDT documented as of this encounter Procedures Procedure Name Priority Date/Time Associated Diagnosis Comments URINALYSIS, COMPLETE, WITH REFLEX TO CULTURE Routine 03/14/2025 10:50 PM EDT CBC WITH AUTO DIFFERENTIAL Routine 03/14/2025 8:52 PM EDT LIPASE Routine 03/14/2025 8:52 PM EDT COMPREHENSIVE METABOLIC PANEL Routine 03/14/2025 8:52 PM EDT documented in this encounter Results * Lipase (03/14/2025 8:52 PM EDT) Lipase 36 8 - 78 U/L [facility] 03/14/2025 8:52 PM EDT 03/14/2025 8:57 PM EDT us Generic External Data Provider LAB BLOOD ORDERAB LES Final Result [facility] [address] [place] [address] [phone] * (ABNORMAL) Comprehensive Metabolic Panel (03/14/2025 8:52 PM EDT) Sodium 136 135 - 145 mmol/L [facility] Potassium 4.0 3.3 - 5.1 mmol/L [facility] Chloride 104 96 - 108 mmol/L [facility] Carbon Dioxide 23 22 - 29 mmol/L [facility] Anion Gap 13 12 - 20 [facility] Urea Nitrogen (BUN) 21(H) 9 - 16 mg/dL [facility] Creatinine, Serum 1.24 0.5 - 1.4 mg/dL [facility] Creatinine Clr Calc Pharmacy 45.2 [facility] Comment:Provided height and weight: 149.86 cm,107.5 kg.eGFR (calculated from the MDRD study equation) and eCrCl(calculated from the Cockcroft-Gault equation) are based ondifferent parameters and may not yield comparable results.If eCrCl result is absurd, please check patient'sheight/weight. Estimated Glomerular Filt Rate 43 [facility] Comment:Chronic Kidney Disea se: Estimated GFR < 60 mL/min/1.92j5Zzefte Kidney Disease: Estimated GFR < 15 mL/min/1.73m2 Glucose 349(H) 60 - 115 mg/dL [facility] Calcium 9.8 8.4 - 10.2 mg/dL [facility] Bilirubin, Total 0.6 0.0 - 1.0 mg/dL [facility] Aspartate Amino Transferase 27 5 - 31 U/L [facility] Alanine Aminotransferase 35(H) 0 - 31 U/L [facility] Total Protein 7.2 6.5 - 8.0 g/dL [facility] Albumin Level 4.2 3.5 - 5.0 g/dL [facility] Alkaline Phosphatase 121(H) 39 - 117 U/L [facility] 03/14/2025 8:52 PM EDT 03/14/2025 8:57 PM EDT us Generic External Data Provider LAB BLOOD ORDERAB LES Final Result [facility] [address] [place] [address] [phone] * (ABNORMAL) CBC auto differential (03/14/2025 8:52 PM EDT) White Blood Count 9.5 4.8 - 10.8 X10*3/uL [facility] Red Blood Count 4.25 4.20 - 5.50 X10*6/uL [facility] Hemoglobin 11.7(L) 12.0 - 16.0 g/dl [facility] Hematocrit 33.9(L) 37.0 - 47.0 % [facility] Mean Corpuscular Volume 79.8(L) 80.0 - 98.0 fL [facility] Mean Corpuscular Hemoglobin 27.5 27.0 - 33.0 pg [facility] Mean Corpuscular HGB Conc 34.5 31.0 - 35.0 g/dl [facility] Red Cell Distribution Width 14.2 11.0 - 16.0 % [facility] Platelet Count 244 160 - 400 X10*3/uL [facility] Mean Platelet Volume 11.9 9.4 - 12.3 fL [facility] Neutrophils Percent Auto 78.3(H) 45 - 73 % [facility] Imm Gran Pct Auto 0.2 0.0 - 0.4 % [facility] Lymphocytes Percent Auto 14.4(L) 20 - 40 % [facility] Monocytes Percent Auto 5.8 2 - 11 % [facility] Eosinophils Percent Auto 1.0 0 - 4 % [facility] Basophils Percent Auto 0.3 0 - 2 % [facility] NRBC Pct Auto 0.0 0.0 - 0.2 /100WBC [facility] Neutrophils Absolute Auto 7.4 2.0 - 8.3 x10*3/uL [facility] Imm Gran Abs Auto 0.02 0.00 - 0.03 X10*3/uL [facility] Lymphocytes Absolute Auto 1.4 1.2 - 4.9 X10*3/uL [facility] Monocytes Absolute Auto 0.6 0.1 - 1.2 X10*3/uL [facility] Eosinophils Absolute Auto 0.1 0.0 - 0.4 X10*3/uL [facility] Basophils Absolute Auto 0.0 0.0 - 0.2 X10*3/uL [facility] NRBC Abs Auto 0.000 0.0 - 0.012 X10*3/uL [facility] 03/14/2025 8:52 PM EDT 03/14/2025 8:57 PM EDT us Generic External Data Provider LAB BLOOD ORDERAB LES Final Result [facility] [address] [place] [address] [phone] documented in this encounter Visit Diagnoses Not on filedocumented in this encounter Additional Health Concerns Assessment Noted Time PHQ-9 Depression Total Score: 0 10/21/19 25 10:26 AM EDT documented as of this encounter Care Teams Continuous Mining Operator Relationship Specialty Start Date End Date Amina Nieves MD [address] [place] [address] PCP - General Family Medicine 04/07/21 documented as of this encounter
--- OUTSIDE RECORDS SUMMARY | 2025-03-14 23:05 | XMS_ITS | Encounter Summary ---
Author Organization [facility] Address [address] [place] [address] [address] [place] [address] Care Team Providers Care Wire Welder Name Role Phone Amina Nieves MD Primary Care Provider [phone] Reason for Referral * Consultation (Routine) - Authorized Specialty Diagnoses / Procedures Referred By Contac t Referred To Contact Pharmacy Diagnoses HTN (hypertension) Amina Nieves MD [address] [place] [address] Phone: tel: fax: Referral ID Status Reason Start Date Expiration Date Visits Requested Visits Authorized [id number] Authorized Continuity of Care 10/25/2024 10/25/2025 6 6 Encounter Details Date Type Department Care Team (Late st Contact Info) Description 10/25/2024 Orders Only [facility] [address] [place], [place] [phone] Amina Nieves MD [address], [place] [phone] HTN (hypertension) (Primary Dx) Social History Tobacco [...] as of this encounter Plan of Treatment Scheduled Referrals Name Type Priority Associated Diagnoses Orde r Schedule Referral to Pharmacy MTM Outpatient Referral Routine HTN (hypertension) Ordered: 10/25/2024 documented as of this encounter Visit Diagnoses Diagnosis HTN (hypertension)- Primary Unspecified essential hypertension documented in this encounter Additional Health Concerns Assessment Noted Time PHQ-9 Depression Total Score: 0 10/21/19 25 10:26 AM EDT documented as of this encounter Care Teams Wire Welder Relationship Specialty Start Date End Date Amina Nieves MD [address] [place] [phone] PCP - General Family Medicine 04/07/21 documented as of this encounter
--- OUTSIDE RECORDS SUMMARY | 2025-03-14 23:05 | XMS_ITS | Encounter Summary ---
Author Organization [employer] Address [address] [place] [address] [address] [place] [address] Care Team Providers Care Yarn Twister Name Role Phone Amina Nieves MD Primary Care Provider [phone] Encounter Details Date Type Department Care Team (Late st Contact Info) Description 10/26/2024 Telephone [facility] [address] [place], [place] [phone] Amina Nieves MD [address] [place], [place] [phone] Social History Tobacco Use Types Packs/Day Years [...] documented as of this encounter Care Teams Yarn Twister Relationship Specialty Start Date End Date Amina Nieves MD [address] [place] [address] PCP - General Family Medicine 04/07/21 documented as of this encounter
--- OUTSIDE RECORDS SUMMARY | 2025-03-14 23:05 | XMS_ITS | Clinical Summary ---
Demographics Address [address] [place] [address] [address] [place] [address] Work Phone Mobile Phone Home Phone Preferred Language es Marital Status Single Hindu Affiliation Unknown Race Other Race Ethnic Group Unknown Author Organization [employer] Address [address] [place] [address] [address] [place] [address] Care Team Providers Care Garnishment Specialist Name Role Phone Amina Nieves MD Primary Care Provider [phone] Allergies Active Allergy Reactions Criticality Noted Date [...] LA BOCA CADA 6 HORAS 023 Active Senna-Time 8.6 MG tablet ANGELA 1 TABLETA POR LA BOCA CADA MÓNICA A LA HORA DE DORMIR 023 Active Ttwstro-Xacvolm-Bc thyl Elvin (Salonpas) 3.1-6-10 % patch APPLY 1 TO 2 PATCHES TOPICALLY TO SKIN, LEAVE ON FOR 12 HOURS AND OFF FOR 12 HOURS DIRECTED NEEDED FOR PAIN 60 patch 2 023 Active Neomycin-Polymyxin -HC 1 % solution Administer 4 drops into affected ear(s) 4 times daily. 10 mL 023 Active albuterol (2.5 MG/3ML) 0.083% nebulizer solution Take 3 mL (2.5 mg) by nebulization if needed in the morning, at noon, and at bedtime for wheezing. 75 mL 11 024 Active furosemide (Lasix) 20 MG tablet Take 1 tablet by mouth Once per day. 024 Active acetic acid-hydrocortison e (Vosol-HC) otic solution PLACE 5 DROPS INTO THE AFFECTED EAR(S) EVERY DAY 024 Active Calcium Carb-Cholecalcifer ol (Oyster Shell Calcium w/D) 500-5 MG-MCG tablet TAKE 1 TABLET BY MOUTH TWICE DAILY IN THE MORNING AND IN THE EVENING 180 tablet 3 024 Active TRUEplus Lancets 33G [...] neuropathy, without long-term current use of insulin ([facility]) TAKE 1 TABLET BY MOUTH EVERY MORNING 90 tablet 3 024 Active lidocaine (Lidoderm) 5 % patchIndications:N romi pain, musculoskeletal Apply 1 patch topically Once per day. Remove & discard patch within 12 hours or as directed by . 60 patch 2 025 Active Aspirin EC Adult Low Dose 81 MG EC tabletIndications: Type 2 diabetes mellitus with diabetic neuropathy, unspecified ([facility]) TAKE 1 TABLET BY MOUTH EVERY MORNING 90 tablet 3 Active montelukast (Singulair) 10 MG tabletIndications: Allergic rhinitis, unspecified seasonality, unspecified trigger TAKE 1 TABLET BY MOUTH EVERY MORNING FOR ALLERGIES 90 tablet 3 Active Blood Glucose Monitoring Suppl ([employer] [place] [employer]) w/Device kitIndications:Typ e 2 diabetes mellitus with diabetic neuropathy, without long-term current use of insulin ([facility]) Use to test blood sugar two times daily 1 kit Active meclizine (Antivert) 25 MG tabletIndications: Dizziness TAKE 1 TABLET BY MOUTH THREE TIMES DAILY NEEDED FOR DIZZINESS 60 tablet 3 Active cyclobenzaprine (Flexeril) 5 MG tabletIndications: Leg cramps TAKE 1 TABLET BY MOUTH AT BEDTIME NEEDED FOR CRAMPS 30 tablet 2 Active loratadine (Claritin) 10 MG tablet Take 1 tablet (10 mg) by mouth Once per day. 90 tablet 3 025 2025 Active ofloxacin (Ocuflox) 0.3 % ophthalmic solution Active prednisoLONE acetate (Pred-Forte) 1 % ophthalmic suspension Active clobetasol (Temovate) 0.05 % ointment Apply topically 2 times daily. 30 g 3 Active D3 Super Strength 50 MCG (2000 UT) capsule TAKE 1 CAPSULE BY MOUTH EVERY MORNING 90 capsule 3 Active ibuprofen 600 MG tabletIndications: Acute nonintractable headache, unspecified headache type,Neck pain, musculoskeletal TAKE 1 TABLET BY MOUTH EVERY 6 HOURS NEEDED FOR MILD PAIN 56 tablet Active carvedilol (Coreg) 12.5 MG tablet Take 1 tablet by mouth 2 times daily. Active pyridoxine (Vitamin B-6) 100 MG tablet Take 100 mg by mouth in the morning. Active Nirmatrelvir&Riton avir 300/100 (Paxlovid, 300/100,) 20 x 150 MG & 10 x 100MG tablet therapy pack Take 300 mg by mouth 2 times daily. Take 3 tablets 2x/day for 5 days 30 each Active metFORMIN XR (Glucophage-XR) 500 MG 24 hr tablet TAKE 2 TABLETS BY MOUTH TWICE DAILY IN THE MORNING AND EVENING WITH MEALS 360 tablet 3 Active Nyamyc 981154 UNIT/GM powderIndications: Skin candidiasis APPLY TOPICALLY TO AFFECTED AREA(S) TWICE DAILY ON AFFECTED AREA(S) DIRECTED UNDER A ABDOMEN AND BETWEEN de los THIGHS 120 g 2 Active Arnuity Ellipta 200 MCG/ACT inhaler INHALE 1 PUFF BY MOUTH EVERY DAY AT THE SAME TIME RINSE MOUTH AFTER USING 30 each 3 Active fluticasone (Flonase) 50 MCG/ACT nasal spray INSTILL 1 SPRAY IN EACH NOSTRIL TWICE DAILY 16 g Active gabapentin (Neurontin) 100 MG capsule TAKE 1 CAPSULE BY MOUTH TWICE DAILY AT NOON AND BEDTIME 60 capsule 11 Active ammonium lactate (Amlactin) 12 % cream APPLY TO THE AFFECTED AREA(S) ON FEET TWICE DAILY NEEDED FOR DRY SKIN Active Cyanocobalamin (B-12) 1000 MCG tablet controlled-release Take 1 tablet by mouth in the morning. Active omeprazole (PriLOSEC) [address] capsule Take 2 capsules by mouth Once per day. Active amLODIPine (Norvasc) 5 MG tablet TAKE 1 TABLET BY MOUTH EVERY MORNING 90 tablet 3 Active irbesartan (Avapro) 300 MG tablet TAKE 1 TABLET BY MOUTH EVERY MORNING 90 tablet 3 Active rosuvastatin (Crestor) 10 MG tablet TAKE 1 TABLET BY MOUTH EVERY EVENING 90 tablet 3 Active irbesartan (Avapro) 300 MG tablet TAKE 1 TABLET BY MOUTH EVERY MORNING 90 tablet 3 024 2024 Discontinued amLODIPine (Norvasc) 5 MG tablet TAKE 1 TABLET BY MOUTH EVERY MORNING 90 tablet 3 024 2024 Discontinued rosuvastatin (Crestor) 10 MG tablet TAKE 1 TABLET BY MOUTH EVERY EVENING 90 tablet 3 024 2024 Discontinued Active Problems Problem Noted Date Diagnosed Date Abdominal pain, left upper quadrant 01/26/2025 Encounter for screening for malignant neoplasm o f colon 01/26/2025 History of adenomatous polyp of colon 01/26/2025 Pre-op exam 10/11/2024 Endometrial cancer 12/20/2023 Assessment & Plan (12/23/2023 2:30 PM EDT): [facility] 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 Ying 01/2023 - referred to [facility]c by Dr. Ying with Dr. Rodriguez at [facility] tempering kiln tender Oncology on 01/14/2023 at 10:00. -CT scan [...] Encounters Date Type Department Care Team Description 03/14/2025 Orders Only GENERIC EXTERNAL DATA DEPARTMENT Provider, Generic External Data 02/27/2025 Orders Only GENERIC EXTERNAL DATA DEPARTMENT Provider, Generic External Data 02/26/2025 Refill [facility] [address] [place] [phone] Amina Nieves MD 02/14/2025 Refill [facility] [address] [place] [address] Amina Nieves MD 01/29/2025 Orders Only [facility] [address] [place] [phone] Amina Nieves MD 01/26/2025 Telephone [facility] [address] [place] [phone] Amina Nieves MD No Show 01/25/2025 Telephone [facility] [address] [place] [address] Amina Nieves MD Chart prep 01/18/2025 Refill [facility] [address] [place] [address] Jhoana Worrell DO 01/18/2025 Refill [facility] [address] [place] [phone] Amina Nieves MD 01/08/2025 Refill [facility] [address] [place] [address] Amina Nieves MD Skin candidiasis 12/17/2024 Refill [facility] [address] [place] [phone] Amina Nieves MD 12/13/2024 8:40 AM EDT Office Visit [facility] [address] [phone] Rubens Chambers MD COVID-19 virus infection (Primary Dx); Hypertension, unspecified type from Last 3 Months Immunizations Immunization Administration Dates Next Due Hep A, Adult 05/25/2019,12/05/2015 Hep B, Unspecified 02/27/2008,07/13/2007, 007 Hep B, adult 12/05/2015, 5,11/30/2014,10/31,02/27/2008,07/13/2007,06/10/2007 Influenza High-dose Quadriva lent Preservative Free 05/05/2023,05/08/2020 Influenza injectable quadriv alent IIV4 with preservative 04/08/2016,05/06/2015 Influenza injectable quadriv alent preservative free 06/22/2022,06/09/2021,05/25/2019,04/21 Influenza, High Dose Seasona l, Preservative Free 05/25/2024,05/12/2018 Influenza, IIV3, injectable 05/12/2019, 4,06/02/2011 Influenza, Split (incl. marcial fied surface antigen) 05/06/2016,03/23/2013,06/17/2012 Influenza, seasonal, injecta ble, preservative free 06/09/2021,03/29/2020 [...] Sign Reading Time Taken Comments Blood Pressure 171/76 12/13/2024 8:45 AM EDT Pulse 85 12/13/2024 8:45 AM EDT Temperature 36.8 C (98.2 F) 12/13/2024 8:45 AM EDT Respiratory Rate 18 12/13/2024 8:45 AM EDT Oxygen Saturation 100% 12/13/2024 8:45 AM EDT Inhaled Oxygen Concentration - - Weight 105 kg (230 lb 6.4 oz) 12/13/2024 8:45 AM EDT Height 149.9 cm (4' 11 ) 10/20/2024 10:23 AM EDT Body Mass Index 46.54 10/20/2024 10:23 AM EDT Plan of Treatment Health Maintenance Due Date Last Done Comments CT Colonography 1955 FIT DNA/Cologuard 1955 FIT 1955 FOBT 1955 Sigmoidoscopy 1955 RSV Patients and Patients Aged 60 years or older (1 - Risk 60-74 years 1-dose series) 2013 COVID-19 Vaccine ( season) 2024 02/25/2022, 12/30/2020, 12/02/2020 Colonoscopy 10/17/2024 10/18/2019 Influenza Vaccine (#1) 2025 , 05/05/2023, 06/22/2022, Additional history exists Colorectal Cancer Screening 04/11/2025 Postponed from 1955 (Other Medical Reasons) Diabetes: Foot Exam 05/25/2025 05/25/2024, 12/18/2022, 12/18/2022 Diabetes: Urine Protein Screening 05/25/2025 05/25/2024, 06/23/2022, 03/19/2022, Additional history exists Diabetes: Hemoglobin A1C 05/30/2025 025, 10/10/2024, 05/25/2024, Additional history exists Lipid Panel 10/10/2025 10/10/2024, 05/12, 06/18/2023, Additional history exists Alcohol/Substance Use Screening 10/11/2025 10/11/2024 SDOH Screening 10/11/2025 10/11/2024 Depression Screening 10/20/2025 10/20/2024, 10/21/19 Tobacco Screening 12/13/2025 12/13/2024 Mammogram 01/29/2026 01/29/2025, 12/10, 10/30/2021, Additional history exists Eye Exam 05/05/2026 05/05/2024 DTaP/Tdap/Td Vaccines (3 [...] history exists Hepatitis C Screening Completed 05/25/2024 HIB Vaccines Aged Out No longer eligi [...] TO CULTURE Routine 03/14/2025 10:50 PM EDT LIPASE Routine 03/14/2025 8:52 PM EDT COMPREHENSIVE METABOLIC PANEL Routine 03/14/2025 8:52 PM EDT CBC WITH AUTO DIFFERENTIAL Routine 03/14/2025 8:52 PM EDT HEPATIC FUNCTION PANEL Routine 7:59 AM EDT HEMOGLOBIN A1C Routine 02/27/2025 7:59 AM EDT BI MAMMOGRAM SCREENING TOMOSYNTHESIS BILATERAL Routine 01/29/2025 8:15 AM EDT LIPID PANEL WITH REFLEX TO DIRECT LDL Routine 10/10/2024 7:54 AM EDT HEPATITIS C AB W/REFL TO HCV RNA, QN, PCR Routine 05/25/2024 9:46 AM EST Type 2 diabetes mellitus with diabetic neuropathy, without long-term current use of insulin (CMS/HCC) ALBUMIN, RANDOM URINE W/CREATININE Routine 05/25/2024 9:46 AM EST Type 2 diabetes mellitus with diabetic neuropathy, without long-term current use of insulin (CMS/HCC) HM COLONOSCOPY Routine 10/18/2019 from Last 3 Months or Most Recently Relevant to Health Maintenance Results * (ABNORMAL) CBC auto differential (03/14/2025 8:52 PM EDT) White Blood Count 9.5 4.8 - 10.8 X10*3/uL [facility] Red Blood Count 4.25 4.20 - 5.50 X10*6/uL [facility] Hemoglobin 11.7(L) 12.0 - 16.0 g/dl [facility] Hematocrit 33.9(L) 37.0 - 47.0 % [facility] Mean Corpuscular Volume 79.8(L) 80.0 - 98.0 fL [facility] Mean Corpuscular Hemoglobin 27.5 27.0 - 33.0 pg [facility] Mean Corpuscular HGB Conc 34.5 31.0 - 35.0 g/dl [facility] Red Cell Distribution Width 14.2 11.0 - 16.0 % [facility] Platelet Count 244 160 - 400 X10*3/uL [facility] Mean Platelet Volume 11.9 9.4 - 12.3 fL [facility] Neutrophils Percent Auto 78.3(H) 45 - 73 % [facility] Imm Gran Pct Auto 0.2 0.0 - 0.4 % [facility] Lymphocytes Percent Auto 14.4(L) 20 - 40 % [facility] Monocytes Percent Auto 5.8 2 - 11 % [facility] Eosinophils Percent Auto 1.0 0 - 4 % [facility] Basophils Percent Auto 0.3 0 - 2 % [facility] NRBC Pct Auto 0.0 0.0 - 0.2 /100WBC [facility] Neutrophils Absolute Auto 7.4 2.0 - 8.3 x10*3/uL [facility] Imm Gran Abs Auto 0.02 0.00 - 0.03 X10*3/uL [facility] Lymphocytes Absolute Auto 1.4 1.2 - 4.9 X10*3/uL [facility] Monocytes Absolute Auto 0.6 0.1 - 1.2 X10*3/uL [facility] Eosinophils Absolute Auto 0.1 0.0 - 0.4 X10*3/uL [facility] Basophils Absolute Auto 0.0 0.0 - 0.2 X10*3/uL [facility] NRBC Abs Auto 0.000 0.0 - 0.012 X10*3/uL [facility] 03/14/2025 8:52 PM EDT 03/14/2025 8:57 PM EDT us Generic External Data Provider LAB BLOOD ORDERAB LES Final Result [facility] [address] [place] [phone] * Lipase (03/14/2025 8:52 PM EDT) Lipase 36 8 - 78 U/L [facility] 03/14/2025 8:52 PM EDT 03/14/2025 8:57 PM EDT us Generic External Data Provider LAB BLOOD ORDERAB LES Final Result [facility] [address] [place] [phone] * (ABNORMAL) Comprehensive Metabolic Panel (03/14/2025 8:52 PM EDT) Sodium 136 135 - 145 mmol/L [facility] Potassium 4.0 3.3 - 5.1 mmol/L [facility] Chloride 104 96 - 108 mmol/L [facility] Carbon Dioxide 23 22 - 29 mmol/L [facility] Anion Gap 13 12 - 20 [facility] Urea Nitrogen (BUN) 21(H) 9 - 16 mg/dL [facility] Creatinine, Serum 1.24 0.5 - 1.4 mg/dL [facility] Creatinine Clr Calc Pharmacy 45.2 [facility] Comment:Provided height and weight: 149.86 cm,107.5 kg.eGFR (calculated from the MDRD study equation) and eCrCl(calculated from the Cockcroft-Gault equation) are based ondifferent parameters and may not yield comparable results.If eCrCl result is absurd, please check patient'sheight/weight. Estimated Glomerular Filt Rate 43 [facility] Comment:Chronic Kidney Disea se: Estimated GFR < 60 mL/min/1.21w2Uxngel Kidney Disease: Estimated GFR < 15 mL/min/1.73m2 Glucose 349(H) 60 - 115 mg/dL [facility] Calcium 9.8 8.4 - 10.2 mg/dL [facility] Bilirubin, Total 0.6 0.0 - 1.0 mg/dL [facility] Aspartate Amino Transferase 27 5 - 31 U/L [facility] Alanine Aminotransferase 35(H) 0 - 31 U/L [facility] Total Protein 7.2 6.5 - 8.0 g/dL [facility] Albumin Level 4.2 3.5 - 5.0 g/dL [facility] Alkaline Phosphatase 121(H) 39 - 117 U/L [facility] 03/14/2025 8:52 PM EDT 03/14/2025 8:57 PM EDT us Generic External Data Provider LAB BLOOD ORDERAB LES Final Result Performing Organization Address [facility] Co de Phone Number [facility] [address] [place] [phone] * (ABNORMAL) Hemoglobin A1c (02/27/2025 7:59 AM EDT) Hemoglobin A1c 9.1(H) <6.0 % [facility] Comment:Hemoglobin A1C Refer ence Range Adults: 4.8 - 6.0 % Non diabetic: < 6.0 % Goal: < 7.0 %Additional Action Suggested: > 8.0 %Note: Hemoglobin A1c results are invalid for patients with abnormal amounts of HbF. Blood transfusions may impact the HbA1c concentration in the patient sample. Estimated Average Glucose 214 mg/dL [facility] Comment:eAG = Estimated ave rage glucose which is %A1C expressed asaverage glucose, using the formula of the A4T-HggqupbKlothtb Glucose study (ADAG), Diabetes Care, Vol.31,#8,Feb. 2007 02/27/2025 7:59 AM EDT 02/27/2025 7:59 AM EDT us Generic External Data Provider LAB BLOOD ORDERAB LES Final Result Performing Organization Address [facility] Co de Phone Number [facility] [address] [place] [phone] * (ABNORMAL) Hepatic Function Panel (02/27/2025 7:59 AM EDT) Bilirubin, Total 0.7 0.0 - 1.0 mg/dL [facility] Bilirubin, Direct 0.2 0.0 - 0.5 mg/dL [facility] Aspartate Amino Transferase 30 5 - 31 U/L [facility] Alanine Aminotransferase 36(H) 0 - 31 U/L [facility] Total Protein 7.3 6.5 - 8.0 g/dL [facility] Albumin Level 4.4 3.5 - 5.0 g/dL [facility] Alkaline Phosphatase 118(H) 39 - 117 U/L [facility] 02/27/2025 7:59 AM EDT 02/27/2025 7:59 AM EDT us Generic External Data Provider LAB BLOOD ORDERAB LES Final Result Performing Organization Address City/State/[facility] de Phone Number [facility] [address] [place] [phone] * BI Mammogram Screening Tomosynthesis Bilateral (01/29/2025 8:15 AM EDT) Anatomical Region Laterality Modality Breast Bilateral Mammography 01/29/2025 8:15 AM EDT Narrative 02/05/2025 5:09 PM EDT [address] [place] [address] Mammography Report Signed Patient: Karon Nur MR#: [id number] : 1955 Acct:[id number] Age/Sex: 69 / F ADM Date: 01/29/25 Loc: HO.MAMMO Attending Dr: Amina Nieves MD Ordering Physician: Amina Nieves Results: 1Negative Date of Service: 01/29/25 Follow Up: 1 Year From Orig inal Mammogram Procedure(s): MM tomosynthesis screening BI Accession Number(s): [id number] cc: Amina Nieves EXAMINATION: MM SCREENING DIGITAL BREAST TOMOSYNTHESIS, BILATERAL CLINICAL INFORMATION: Screening. Asymptomatic. COMPARISON: Comparison made to multiple prior, most recent December 22, 2023, and most remote May 20, 2020. TECHNIQUE: Digital breast tomosynthesis is performed in both the craniocaudal and mediolateral oblique views along with computer-aided detection (CAD). Synthesized 2D images are generated from the tomosynthesis. FINDINGS: BREAST COMPOSITION: There are scattered areas of fibroglandular density (ACR BI-RADS breast composition Category b). BILATERAL BREASTS: No significant masses, suspicious calcifications or other abnormalities are seen in either breast. MM/MM tomosynthesis screening BI IMPRESSION: BILATERAL BREASTS: Negative, no mammographic evidence of malignancy. Normal interval follow-up is recommended in 12 months. ASSESSMENT: BI-RADS 1 - Negative RECOMMENDATION: Routine annual mammography screening. FOLLOW-UP: 1 year F/U This examination should not preclude the clinical evaluation of a suspicious palpable abnormality. This patient's information was entered into a reminder system with a target due date for their next mammogram. Electronically signed by: Bairon Conklin MD 02/05/2025 05:05 PM EDT Dictated By: Bairon Conklin MD Signed By: <Electronically signed by Bairon Conklin MD in OV> 02/05/25 1705 DD/ 0815 TD/TT: 01/29/25 0830 Spar Cap Beveler: Procedure Note Donotuseinterpreter, [facility] [address] [place] [address] Mammography Report Signed Patient: Ron Nur#: [id number] : 1955cct:[id number] Age/Sex: 69 / FADM Date: 01/29/25 Loc: MAMMO Attending Dr: Amina Nieves MD Ordering Physician: Nicole Nievesults: 1Negative Date of Service: 01/29/25Follow Up: 1 Year From Orig inal Mammogram Procedure(s): MM tomosynthesis screening BI Accession Number(s): [id number] cc: Amina Nieves EXAMINATION: MM SCREENING DIGITAL BREAST TOMOSYNTHESIS, BILATERAL CLINICAL INFORMATION: Screening. Asymptomatic. COMPARISON: Comparison made to multiple prior, most recent December 22, 2023, and most remote May 20, 2020. TECHNIQUE: Digital breast tomosynthesis is performed in both the craniocaudal and mediolateral oblique views along with computer-aided detection (CAD). Synthesized 2D images are generated from the tomosynthesis. FINDINGS: BREAST COMPOSITION: There are scattered areas of fibroglandular density (ACR BI-RADS breast composition Category b). BILATERAL BREASTS: No significant masses, suspicious calcifications or other abnormalities are seen in either breast. MM/MM tomosynthesis screening BI IMPRESSION: BILATERAL BREASTS: Negative, no mammographic evidence of malignancy. Normal interval follow-up is recommended in 12 months. ASSESSMENT: BI-RADS 1 - Negative RECOMMENDATION: Routine annual mammography screening. FOLLOW-UP: 1 year F/U This examination should not preclude the clinical evaluation of a suspicious palpable abnormality. This patient's information was entered into a reminder system with a target due date for their next mammogram. Electronically signed by: Bairon Conklin MD 02/05/2025 05:05 PM EDT Workstation: [employer] Dictated By: Bairon Conklin MD Signed By: <Electronically signed by Bairon Conklin MD in OV> 02/05/25 1705 DD/ 0815 TD/TT: 01/29/25 0830 Spar Cap Beveler: Amina Nieves MD IM BI PROCEDURES Final Result * (ABNORMAL) Lipid Panel with Reflex to Direct LDL (10/10/2024 7:54 AM EDT) Triglycerides 248(H) <150 mg/dL [facility] Comment:Desirable Triglyceri de: less than 150 mg/dLBorderline High Triglyceride 150-199 mg/dLHigh Triglyceride: 200-499 mg/dLVery High Triglyceride: greater than or equal to 5OO mg/dL Cholesterol 207(H) <200 mg/dL [facility] Comment:Desirable Cholestero l: less than 200 mg/dLBorderline High Cholesterol: 200-239 mg/dLHigh Cholesterol: greater than 239 mg/dL LDL Cholesterol Calculated 116(H) <100 mg/dL [facility] Comment:Desirable LDL: less than 100 mg/dLNear Optimal/Above Optimal LDL: 110- 129 mg/dLBorderline High LDL: 130-159 mg/dLHigh LDL: 160-189 mg/dLVery High LDL: greater than or equal to 190 mg/dL HDL Cholesterol 42 >40 mg/dL [facility] Comment:Desirable HDL: great er than 40 mg/dL Note: This HDL assay may give artificially low results in patients with liver disease. 10/10/2024 7:54 AM EDT 10/10/2024 7:54 AM EDT us Generic External Data Provider LAB BLOOD ORDERAB LES Final Result Performing Organization Address [facility] de Phone Number [facility] [address] [place] [phone] * Albumin, Random Urine W/Creatinine (05/25/2024 9:46 AM EST) Creatinine, Urine 85.32 mg/dL [facility] Microalbumin Urine 23.0 mg/L [facility] Microalbum Creatinine Ratio Ur 26.9 <30 ug/mg cr [facility] Comment:Albumin/Creatinine R atio Reference Ranges: Normal: < 30 ug/mg creatinine Microalbuminuria: 30 - 300 ug/mg creatinineClinical Albuminuria: > 300 ug/mg creatinine Urine (Urine, Random) 05/25/2024 9:46 AM EST 05/25/2024 11:28 AM EST us Amina Nieves MD LAB URINE ORDERABLES Final Res ult Performing Organization Address [facility] Co de Phone Number [facility] [address] [place] [phone] * Hepatitis C Antibody with Reflex to HCV, RNA, Quantitative, Real-Time PCR (05/25/2024 9:46 AM EST) Hepatitis C Antibody Nonreactive Nonreactive [facility] Comment:Antibodies to HCV no t detected; does not exclude early acuteHCV infection. Blood Venous blood specimen / Unknown 05/25/2024 9:46 AM EST 05/25/2024 10:53 AM EST Amina Nieves MD LAB BLOOD ORDERABLES Final Res ult [facility] [address] [place] [address] [phone] * (ABNORMAL) Colonoscopy (10/18/2019) Colonoscopy Abnormal(A ) Normal Historical Provider HEALTH MAINTENANCE Edited Result - Final from Last 3 Months or Most Recently Relevant to Health Maintenance Insurance [facility] RETIREMENT OPTIONS (O D-SNP) [place] [id number] [address] [place] [id number] Care Teams Garnishment Specialist Relationship Specialty Start Date End Date Amina Nieves MD [address] [place] [address] APR[place] [id number] PCP - General Family Medicine 04/07/21
--- OUTSIDE RECORDS SUMMARY | 2025-03-14 23:06 | XMS_ITS | Encounter Summary ---
Author Organization [employer] Address [address] [place] [address] [address] [place] [address] Care Team Providers Care Vice President Of Sales Name Role Phone Amina Nieves MD Primary Care Provider [phone] Reason for Visit * Reason Comments Med Refill Encounter Details Date Type Department Care Team ([facility] st Contact Info) Description 01/23/2023 Refill [facility] MED[facility]INE [address] [place] [address] Amina Nieves MD [address] [place] [address] Social History Tobacco Use Types Packs/Day Years [...] documented as of this encounter Care Teams Vice President Of Sales Relationship Specialty Start Date End Date Amina Nieves MD [address] [place] [address] PCP - General Family Medicine 04/07/21 documented as of this encounter
--- OUTSIDE RECORDS SUMMARY | 2025-03-14 23:06 | XMS_ITS | Encounter Summary ---
Author Organization [employer] Address [address] [place] [address] 7[address] [place] [address] Care Team Providers Care Organic Lab Worker Name Role Phone Amina Nieves MD Primary Care Provider [phone] Reason for Visit * Reason Comments Med Refill Encounter Details Date Type Department Care Team ([facility] st Contact Info) Description 06/01/2024 Refill [facility] MED[facility]INE [address] [place], [place] [phone] Jhoana Worrell DO [address] [place], [place] [phone] Social History Tobacco Use Types Packs/Day Years [...] documented as of this encounter Care Teams Organic Lab Worker Relationship Specialty Start Date End Date Amina Nieves MD [address] [place] [id number] PCP - General Family Medicine 04/07/21 documented as of this encounter
--- OUTSIDE RECORDS SUMMARY | 2025-03-14 23:06 | XMS_ITS | Encounter Summary ---
Author Organization [employer] Address [address] [place] [address] 7t [place] [address] Care Team Providers Care Membership Sales Manager Name Role Phone Amina Nieves MD Primary Care Provider [phone] Encounter Details Date Type Department Care Team (Late st Contact Info) Description 10/27/2022 Orders Only [facility] MEDICINE [address] [place], [place] [phone] Amina Nieves MD [address] [place], [place] [phone] Vaginal bleeding (Primary Dx); Endometrial thickening on [...] documented as of this encounter Care Teams Membership Sales Manager Relationship Specialty Start Date End Date Amina Nieves MD [address] [place] [address] PCP - General Family Medicine 04/07/21 documented as of this encounter
--- OUTSIDE RECORDS SUMMARY | 2025-03-14 23:06 | XMS_ITS | Encounter Summary ---
Author Organization [employer] Address [address] [place] [address] 7t [place] [address] Care Team Providers Care Manager Unix Name Role Phone Amina Nieves MD Primary Care Provider [phone] Encounter Details Date Type Department Care Team (Late st Contact Info) Description 01/26/2024 Orders Only [facility] MEDICINE [address] [place], [place] [phone] Amina Nieves MD [address] [place], [place] [phone] Social History Tobacco Use Types Packs/Day Years [...] documented as of this encounter Care Teams Manager Unix Relationship Specialty Start Date End Date Amina Nieves MD [address] [place] [address] PCP - General Family Medicine 04/07/21 documented as of this encounter
--- OUTSIDE RECORDS SUMMARY | 2025-03-14 23:06 | XMS_ITS | Encounter Summary ---
Author Organization [employer] Address [address] [place] [address] [address] [place] [address] Care Team Providers Care Senior Commissions Analyst Name Role Phone Amina Nieves MD Primary Care Provider [phone] Reason for Visit * Reason Comments Med Refill Encounter Details Date Type Department Care Team ([facility] st Contact Info) Description 05/07/2023 Refill [facility] [address] [place], [place] [phone] Amina Nieves MD [address] [place], [place] [phone] Rash Social History Tobacco Use Types Packs/Day [...] documented as of this encounter Care Teams Senior Commissions Analyst Relationship Specialty Start Date End Date Amina Nieves MD [address] [place] [id number] PCP - General Family Medicine 04/07/21 documented as of this encounter
--- NOTE | 2025-03-14 23:11 | ED.FEMALEGU ---
HPI - Female Genitourinary General Chief complaint: Urogenital-Female Stated complaint: kidney stones, rt side pain Time Seen by Provider: 03/14/25 22:49 History of Present Illness HPI Narrative: Patient is a 69-year-old female with a history of kidney stones in the past presented today with right flank pain radiating down to the right side. There is positive nausea. Patient claims the pain is very sharp. Has a history of kidney stones in the past in the feels the same patient took some Motrin with moderate relief. No vomiting. No diaphoresis. Patient from home. No pain on urination. Did not follow-up with urology. Unsure how they knew patient had a kidney stone but feels the pain is very similar. Related Data Home Medications ?Medication ?Instructions ?Recorded ?Confirmed amlodipine 5 mg tablet 5 mg PO DAILY 05/02/20 04/06/24 aspirin 81 mg tablet,delayed 81 mg PO DAILY 05/02/20 04/06/24 release (Adult Low Dose Aspirin) cholecalciferol (vitamin D3) 50 50 mcg PO DAILY 05/02/20 04/06/24 mcg (2,000 unit) capsule gabapentin 100 mg capsule 100 mg PO BID 05/02/20 04/06/24 irbesartan 300 mg tablet 300 mg PO DAILY 05/02/20 04/06/24 isosorbide mononitrate 30 mg 30 mg PO DAILY 05/02/20 04/06/24 tablet,extended release 24 hr rosuvastatin 10 mg tablet 10 mg PO DAILY 05/02/20 04/06/24 calcium 500 mg (as 1 tab PO DAILY 04/25/21 04/06/24 carbonate)-vitamin D3 5 mcg (200 unit) tablet (Oyster Shell Calcium-Vitamin D3) dapagliflozin propanediol 10 mg 10 mg PO DAILY 08/07/21 04/06/24 tablet (Farxiga) metformin 500 mg tablet,extended 1,000 mg PO 03/09/22 04/06/24 release 24 hr blood sugar diagnostic (FreeStyle #10 ea 08/10/22 04/06/24 Lite Strips) lancets 33 gauge (TRUEplus Lancets) #100 ea 12/10/23 04/06/24 montelukast 10 mg tablet 10 mg PO DAILY 12/10/23 04/06/24 carvedilol 12.5 mg tablet 12.5 mg PO BID 06/30/24 furosemide 20 mg tablet 20 mg PO DAILY 06/30/24 Previous Rx's ?Medication ?Instructions ?Recorded cyanocobalamin (vitamin B-12) 1,000 mcg PO QAM #90 tabs 01/02/25 1,000 mcg tablet,extended release (Vitamin B-12 ER) pyridoxine (vitamin B6) 100 mg 100 mg PO DAILY 90 days #90 tabs 01/17/25 tablet bisacodyl 5 mg tablet,delayed 20 mg (4 x 5 mg) PO ONCE 02/26/25 release (Dulcolax (bisacodyl)) constipation 1 day #4 tabs polyethylene glycol 3350 17 238 g PO ONCE #238 grams 02/26/25 gram/dose oral powder (Miralax) ibuprofen 400 mg tablet 400 mg PO Q6H PRN pain #20 tabs 03/15/25 ondansetron 4 mg disintegrating 4 mg PO TID PRN nausea and 03/15/25 tablet vomiting 5 days #10 tabs oxycodone 5 mg tablet 5 mg PO Q8H PRN pain #7 tabs 03/15/25 tamsulosin 0.4 mg capsule (Flomax) 0.4 mg PO DAILY #7 caps 03/15/25 Allergies Allergy/AdvReac Type Severity Reaction Status Date / Time Penicillins (PENICILLINS) Allergy Intermediate HIVES Verified 03/14/25 20:31 fluticasone (From Advair Allergy Mild Unknown Verified 03/14/25 20:31 Diskus) potassium Allergy Mild Unknown Verified 03/14/25 20:31 salmeterol (From Advair Allergy Mild Unknown Verified 03/14/25 20:31 Diskus) Review of Systems Review of Systems: Positive abdominal pain on the right side. No chest pain no shortness of breath no diaphoresis Yes all other systems are reviewed and are negative [facility] Past Medical History Attestation statement: The following information was validated with the patient. Medical History Endometrial cancer Renal calculi Irritable bowel syndrome Microscopic hematuria Eczema GERD (gastroesophageal reflux disease) Bursitis of heel Achilles tendinitis Juvenile xanthogranuloma Pilar cysts Hypercholesterolemia Kidney stones Osteoarthritis of right knee Osteoarthritis of left knee Hypertension Diabetes mellitus Surgical History History of surgery Hx of total knee arthroplasty (~2017) History of tubal ligation Social History Social History Household Members: None Housing: Apartment Alcohol intake: never Patient Tobacco Use Status: Never used Tobacco Smoked in Last 30 Days: No Advance Directives: No Advance Directives Information Provided: No Do you have a plan to hurt others: No Plan Current occupational status: disabled Physical Exam Exam: Exam: Appearance: Alert. Oriented X3. No acute distress. Eyes: Pupils equal, round and reactive to light. ENT: Pharynx normal. Neck: Normal inspection. Neck supple. No lymph nodes noted. No crepitus CVS: Normal heart rate and rhythm. Pulses normal. Normal S1 and S2 Respiratory: No respiratory distress. Breath sounds normal. No Wheezing. No rales Abdomen: Soft and nontender. No rigidity. No distention. good BS x4 Skin: Skin warm and dry. Normal skin color. Normal skin turgor. Extremities: No lower extremity edema. Neurovascular intact to all extremities. No Lacerations. No Rash Neuro: Oriented X 3. No motor deficit. No sensory deficit. Moving all extermities. No slurred speech Vital Signs: Vital Signs: Last Vital Signs Temp 99.1 F 03/14/25 23:40 Pulse 84 03/14/25 23:40 Resp 16 03/14/25 23:40 BP 140/53 H 03/14/25 23:40 Pulse Ox 95 03/14/25 23:40 O2 Del Method Room Air 03/14/25 23:40 BMI result Body Mass Index 47.9 Medications Administered Discontinued Medications Generic Name Dose Route Start Last Admin Trade Name Freq PRN Reason Stop Dose Admin Hydromorphone HCl 0.5 mg 03/14/25 23:10 03/14/25 23:32 Hydromorphone Hcl 0.5 Mg/0.5 Ml Syringe IVPUSH 03/14/25 23:11 0.5 mg ONCE ONE Administration Protocol Ondansetron HCl 4 mg 03/14/25 23:10 03/14/25 23:32 Ondansetron Hcl 4 Mg/2 Ml Vial IVPUSH 03/14/25 23:11 4 mg ONCE ONE Administration Medical Decision Making Medical Decision Making [facility] Narrative: CT scan of the abdomen pelvis was ordered. Radiology's interpretation shows a right-sided kidney stone. This is most likely the cause of patient's pain. Given a dose of Dilaudid with good relief of symptoms. Pain is currently controlled. Patient's white count is normal. Creatinine is normal. Urine showed positive blood consistent with kidney stone. There is no evidence of infection. Will give patient pain medication nausea medication and Flomax. Close follow-up with Urology on an outpatient basis. Pain is currently controlled. Differential Diagnosis Differential Diagnoses: The differential diagnosis associated with the presentation includes Biliary disease, appendicitis, UTI, kidney stone Admission/Observation Consideration of admission/observation: Escalation of care including admission/observation considered Symptom improved will discharge home Lab Data [facility] Lab Attestation statement: I reviewed the patient's lab results. 03/14/25 20:52 03/14/25 20:52 Labs: Lab Results 03/14/25 03/14/25 Range/Units 20:52 22:50 WBC 9.5 (4.8-10.8) X10*3/uL RBC 4.25 (4.20-5.50) X10*6/uL Hgb 11.7 L (12.0-16.0) g/dl Hct 33.9 L (37.0-47.0) % MCV 79.8 L (80.0-98.0) fL MCH 27.5 (27.0-33.0) pg MCHC 34.5 (31.0-35.0) g/dl RDW 14.2 (11.0-16.0) % Plt Count 244 (160-400) X10*3/uL MPV 11.9 (9.4-12.3) fL Immature Gran % (Auto) 0.2 (0.0-0.4) % Neut % (Auto) 78.3 H (45-73) % Lymph % (Auto) 14.4 L (20-40) % [place] % (Auto) 5.8 (2-11) % Eos % (Auto) 1.0 (0-4) % Baso % (Auto) 0.3 (0-2) % Lymph # (Auto) 1.4 (1.2-4.9) X10*3/uL [place] # (Auto) 0.6 (0.1-1.2) X10*3/uL Eos # (Auto) 0.1 (0.0-0.4) X10*3/uL Baso # (Auto) 0.0 (0.0-0.2) X10*3/uL Abs Immat Gran (auto) 0.02 (0.00-0.03) X10*3/uL Absolute Neuts (auto) 7.4 (2.0-8.3) x10*3/uL Absolute Nucleated RBC 0.000 (0.0-0.012) X10*3/uL Nucleated RBC % (auto) 0.0 (0.0-0.2) /100WBC Sodium 136 (135-145) mmol/L Potassium 4.0 (3.3-5.1) mmol/L Chloride 104 (96-108) mmol/L Carbon Dioxide 23 (22-29) mmol/L Anion Gap 13 (12-20) BUN 21 H (9-16) mg/dL Creatinine 1.24 (0.5-1.4) mg/dL Estim Creat Clear Calc 45.2 Estimated GFR 43 Random Glucose 349 H (60-115) mg/dL Calcium 9.8 (8.4-10.2) mg/dL Total Bilirubin 0.6 (0.0-1.0) mg/dL AST 27 (5-31) U/L ALT 35 H (0-31) U/L Alkaline Phosphatase 121 H (39-117) U/L Total Protein 7.2 (6.5-8.0) g/dL Albumin 4.2 (3.5-5.0) g/dL Lipase 36 (8-78) U/L Urine Color Yellow Urine Appearance Clear Urine pH 5.5 (5.0-9.0) Ur Specific [place] 1.025 (1.005-1.025) Urine Protein Trace (Neg-Trace) mg/dL Urine Glucose (UA) >=1000 H (Negative) mg/dL Urine Ketones Negative (Negative) mg/dL Urine Blood Moderate (2+) H (Negative) Urine Nitrite Negative (Negative) Ur Leukocyte Esterase Negative (Negative) Urine RBC 11-20 H (0-2) /HPF Urine WBC 0-5 (0-5) /HPF Ur Squamous Epith Cells 0-2 (0-2) /HPF Urine Bacteria None Seen (None Seen) Hyaline Casts 0-2 (0-2) /LPF Independent Interpretation I performed an independent interpretation of an: CT Scan (No obvious bowel obstruction) Radiology Impression Discussion of test interpretation with radiology: I have reviewed the radiologist's reading. Social Determinants Patient?s care significantly limited by Social Determinants of Health including: Low income and Problems related to primary support group Discharge Plan Discharge Clinical Impression: Renal colic Patient Disposition: Home, Self-Care Instructions: Renal Colic (ED) Prescriptions: New tamsulosin [Flomax] 0.4 mg capsule 0.4 mg PO DAILY Qty: 7 0RF ibuprofen 400 mg tablet 400 mg PO Q6H PRN (Reason: pain) Qty: 20 0RF ondansetron 4 mg tablet,disintegrating 4 mg PO TID PRN (Reason: nausea and vomiting) 5 Days Qty: 10 0RF oxycodone 5 mg tablet 5 mg PO Q8H PRN (Reason: pain) Qty: 7 0RF Rx Instructions: Partial Fill upon patient request. No Action cyanocobalamin (vitamin B-12) [Vitamin B-12] 1,000 mcg tablet extended release 1,000 mcg PO QAM Qty: 90 2RF pyridoxine (vitamin B6) 100 mg tablet 100 mg PO DAILY 90 Days Qty: 90 3RF calcium carbonate-vitamin D3 [Oyster Shell Calcium-Vit D3] 500 mg(1,250mg) -200 unit tablet 1 tab PO DAILY gabapentin 100 mg capsule 100 mg PO BID rosuvastatin 10 mg tablet 10 mg PO DAILY aspirin [Adult Low Dose Aspirin] 81 mg tablet,delayed release (DR/EC) 81 mg PO DAILY amlodipine 5 mg tablet 5 mg PO DAILY cholecalciferol (vitamin D3) 50 mcg (2,000 unit) capsule 50 mcg PO DAILY isosorbide mononitrate 30 mg tablet extended release 24 hr 30 mg PO DAILY irbesartan 300 mg tablet 300 mg PO DAILY Farxiga 10 mg tablet 10 mg PO DAILY metformin 500 mg tablet extended release 24 hr 1,000 mg PO (DME) FreeStyle Lite Strips Strip See Rx Instructions .ROUTE BID Qty: 10 Rx Instructions: As directed (DME) lancets [TRUEplus Lancets] 33 gauge misc See Rx Instructions .ROUTE .MEDSUPPLY Qty: 100 Rx Instructions: As directed montelukast 10 mg tablet 10 mg PO DAILY furosemide 20 mg tablet 20 mg PO DAILY carvedilol 12.5 mg tablet 12.5 mg PO BID bisacodyl [Dulcolax (bisacodyl)] 5 mg tablet,delayed release (DR/EC) 20 mg PO ONCE 1 Days Qty: 4 0RF Rx Instructions: take 4 tabs at noon the day before your colonoscopy polyethylene glycol 3350 [Miralax] 17 gram/dose powder 238 g PO ONCE Qty: 238 0RF Rx Instructions: As directed by gastroenterology department at [facility] Referrals: Isaiah Navarrete MD [Physician, Urology] - 03/19/25 Print Language: Estonian
[2025-03-14 23:40] VITALS: BP 140/53; PULSE 84; RESP 16; TEMP 37.3; O2SAT 95
--- NOTE | 2025-03-14 23:51 | PC.NURSE ---
Patient placeed on 2L of . Daughter reports pt has TERENCE and uses a machine at night. Pt resting after giving dilaudid, occasionally dropping to 88%. Patient resting with daughter at bedside, side rail up, and call trejo within reach.
[2025-03-15 01:19] VITALS: BP 145/50; PULSE 79; RESP 16; TEMP 36.9; O2SAT 99
[2025-03-15 01:21] VITALS: BP 145/50; PULSE 79; RESP 16; TEMP 36.9; O2SAT 99
== END 2025-03-15 01:48 | disposition home or self-care (01) ==
PROVIDERS: Emergency Provider Emergency Medicine Emergency Medical Services; PCP General Practice
DX: N20.0 Calculus of kidney (principal); I10 Essential (primary) hypertension; Z87.442 Personal history of urinary calculi; Z79.899 Other long term (current) drug therapy
CPT/HCPCS: 36415; 74176; 80053; 81001; 83690; 85025; 96374; 96375; 99284; J1171; J2405

== ENCOUNTER → 2025-03-15 | Outpatient (BNV) | payer OTHER, SELFPAY | PROVIDERS: Emergency Provider Emergency Medicine Emergency Medical Services; PCP General Practice; Visit Provider Radiology Diagnostic Radiology | DX: N13.2 Hydronephrosis with renal and ureteral calculous obstruction (principal); K80.20 Calculus of gallbladder without cholecystitis without obstruction; J90 Pleural effusion, not elsewhere classified | CPT/HCPCS: 74176 ==

== ENCOUNTER 2025-03-23 09:53 | Outpatient (REF) | payer OTHER, SELFPAY ==
--- OUTSIDE RECORDS SUMMARY | 2024-11-28 06:00 | XMS_ITS ---
Author Organization [facility] Address [address] [place] [address] Care Team Providers Care Draw Frame Operator Name Role Phone Carmen Santiago Primary Care Provider Unavailab Risa Castellanos Unavailable [phone] Yancey Encounters Encounter Location Date Provider Diagnosis [facility] [address] [place] [address] 11/28/2024 Risa Chen Plan Of Treatment Next Appt Details Provider Name:Risa singh, 05/29/2025 11:00:00 AM, [address] [place], [address], Progress Notes * Cheri ARELLANOsDOB: [birth year] (69 yo F)Acc No.[id number]:11/28/2024 Progress Note Patient: Supriya QUIROGA Karon Provider: Chuck Chen DPM :1955 A ge:69 Y S ex:Female Date:11/28/2024 Address:[address] [place] [address] [address], [place], [place] Pcp:Carmen Santiago Subjective: * Chief Complaints: * [...] 0 11/28/2024 Generated for Cheryl bundy/Rashard/Pedro on: 0 03/23/2025 09:15 AM EDT
--- OUTSIDE RECORDS SUMMARY | 2025-03-19 09:20 | XMS_ITS | Encounter Summary ---
Author Organization [employer] Address [address] [place] [address] [address] [place] [address] Care Team Providers Care Home Organizer Name Role Phone Amina Nieves MD Primary Care Provider [phone] Reason for Visit * Reason Comments Back Pain Stones Encounter Details Date Type Department Care Team ([facility] st Contact Info) Description 03/19/2025 9:20 AM EDT Office Visit [facility] [address] [place] [address] Terri Kruse NP [address] [place] [address] Right kidney stone (Primary Dx); Low back pain, unspecified back pain laterality, unspecified chronicity, unspecified whether sciatica present; Drug-induced constipation Social History Tobacco Use Types Packs/Day Years [...] Sign Reading Time Taken Comments Blood Pressure 143/78 03/19/2025 9:00 AM EDT Pulse 78 03/19/2025 9:00 AM EDT Temperature 36.7 C (98.1 F) 03/19/2025 9:00 AM EDT Respiratory Rate 18 03/19/2025 9:00 AM EDT Oxygen Saturation 98% 03/19/2025 9:00 AM EDT Inhaled Oxygen Concentration - - Weight 105 kg (231 lb) 03/19/2025 9:00 AM EDT Height - - Body Mass Index 46.66 10/20/2024 10:23 AM EDT documented in this encounter Progress Notes * Terri Kruse NP - 03/19/2025 9:20 AM EDT Karon Arellano Perico is a 69 y.o. female who presents to the office for Chief Complaint Patient presents with Back Pain Stones Problem List[1] Medical History[2] Allergies[3] Karon Arellano Perico, 69-year-old female - Severe internal burning sensation described as feeling extremely hot inside, onset prior to visit - History of kidney stones, with prior episode last month resulting in severe pain and passage of astone after urination - Emergency room visit on Wednesday, March 14, 2025, for severe pain; imaging revealed kidney stones - Reports persistent, intense pain since ER visit, partially relieved by pain medications but recurs after a few hours - Currently taking tamsulosin (Flomax) for stone passage; reports no improvement in pain with this medication - Using ibuprofen and oxycodone for pain, with some relief; takes both together as needed - Reports constipation, possibly related to pain medications - Denies blood in urine or presence of sand/grit in urine - Reports sensation of abdominal fullness and discomfort Review of Systems Constitutional: Negative for activity change. Musculoskeletal: Positive for back pain. BP (!) 143/78 (BP Location: Right arm, Patient Position: Sitting, BP Cuff Size: Adult) Pulse 78 Temp 98.1 ??F (36.7 ??C) (Temporal) Resp 18 Wt 231 lb (105 kg) SpO2 98% BMI 46.66 kg/m?? Physical Exam Vitals reviewed. Constitutional: Appearance: She is obese. Comments: Visibly uncomfortable HENT: Head: Normocephalic and atraumatic. Nose: Nose normal. Eyes: Conjunctiva/sclera: Conjunctivae normal. Cardiovascular: Rate and Rhythm: Normal rate and regular rhythm. Pulmonary: Effort: Pulmonary effort is normal. Breath sounds: Normal breath sounds. Musculoskeletal: Cervical back: Normal range of motion and neck supple. Neurological: General: No focal deficit present. Mental Status: She is alert. Results: Office Visit on 03/19/2025 Component Date Value Ref Range Status Color, UA 03/19/2025 Yellow Final Clarity, UA 03/19/2025 Clear Final Glucose, UA 03/19/2025 Negative Final Bilirubin, UA 03/19/2025 Negative Final Ketones, UA 03/19/2025 Negative Final Spec Grav, UA 03/19/2025 1.025 Final Blood, UA 03/19/2025 Positive (A) Negative, None Detected Final small pH, UA 03/19/2025 5.5 Final Protein, UA 03/19/2025 Negative Final Urobilinogen, UA 03/19/2025 0.2 Final Leukocytes, UA 03/19/2025 Few 15 (A) Negative, Rare, Trace Final Nitrite, UA 03/19/2025 Negative Negative, None Detected Final Appearance, UA 03/19/2025 Ok Final Orders Only on 03/14/2025 Component Date Value Ref Range Status White Blood Count 03/14/2025 9.5 4.8 - 10.8 X10*3/uL Final Red Blood Count 03/14/2025 4.25 4.20 - 5.50 X10*6/uL Final Hemoglobin 03/14/2025 11.7 (L) 12.0 - 16.0 g/dl Final Hematocrit 03/14/2025 33.9 (L) 37.0 - 47.0 % Final Mean Corpuscular Volume 03/14/2025 79.8 (L) 80.0 - 98.0 fL Final Mean Corpuscular Hemoglobin 03/14/2025 27.5 27.0 - 33.0 pg Final Mean Corpuscular HGB Conc 03/14/2025 34.5 31.0 - 35.0 g/dl Final Red Cell Distribution Width 03/14/2025 14.2 11.0 - 16.0 % Final Platelet Count 03/14/2025 244 160 - 400 X10*3/uL Final Mean Platelet Volume 03/14/2025 11.9 9.4 - 12.3 fL Final Neutrophils Percent Auto 03/14/2025 78.3 (H) 45 - 73 % Final Imm Gran Pct Auto 03/14/2025 0.2 0.0 - 0.4 % Final Lymphocytes Percent Auto 03/14/2025 14.4 (L) 20 - 40 % Final Monocytes Percent Auto 03/14/2025 5.8 2 - 11 % Final Eosinophils Percent Auto 03/14/2025 1.0 0 - 4 % Final Basophils Percent Auto 03/14/2025 0.3 0 - 2 % Final NRBC Pct Auto 03/14/2025 0.0 0.0 - 0.2 /100WBC Final Neutrophils Absolute Auto 03/14/2025 7.4 2.0 - 8.3 x10*3/uL Final Imm Gran Abs Auto 03/14/2025 0.02 0.00 - 0.03 X10*3/uL Final Lymphocytes Absolute Auto 03/14/2025 1.4 1.2 - 4.9 X10*3/uL Final Monocytes Absolute Auto 03/14/2025 0.6 0.1 - 1.2 X10*3/uL Final Eosinophils Absolute Auto 03/14/2025 0.1 0.0 - 0.4 X10*3/uL Final Basophils Absolute Auto 03/14/2025 0.0 0.0 - 0.2 X10*3/uL Final NRBC Abs Auto 03/14/2025 0.000 0.0 - 0.012 X10*3/uL Final Sodium 03/14/2025 136 135 - 145 mmol/L Final Potassium 03/14/2025 4.0 3.3 - 5.1 mmol/L Final Chloride 03/14/2025 104 96 - 108 mmol/L Final Carbon Dioxide 03/14/2025 23 22 - 29 mmol/L Final Anion Gap 03/14/2025 13 12 - 20 Final Urea Nitrogen (BUN) 03/14/2025 21 (H) 9 - 16 mg/dL Final Creatinine, Serum 03/14/2025 1.24 0.5 - 1.4 mg/dL Final Creatinine Clr Calc Pharmacy 03/14/2025 45.2 Final Provided height and weight: 149.86 cm,107.5 kg.eGFR (calculated from the MDRD study equation) and eCrCl(calculated from the Cockcroft-Gault equation) are based ondifferent parameters and may not yield comparable results.If eCrCl result is absurd, please check patient'sheight/weight. Estimated Glomerular Filt Rate 03/14/2025 43 Final Chronic Kidney Disease: Estimated GFR < 60 mL/min/1.70m8Ztifrj Kidney Disease: Estimated GFR < 15 mL/min/1.73m2 Glucose 03/14/2025 349 (H) 60 - 115 mg/dL Final Calcium 03/14/2025 9.8 8.4 - 10.2 mg/dL Final Bilirubin, Total 03/14/2025 0.6 0.0 - 1.0 mg/dL Final Aspartate Amino Transferase 03/14/2025 27 5 - 31 U/L Final Alanine Aminotransferase 03/14/2025 35 (H) 0 - 31 U/L Final Total Protein 03/14/2025 7.2 6.5 - 8.0 g/dL Final Albumin Level 03/14/2025 4.2 3.5 - 5.0 g/dL Final Alkaline Phosphatase 03/14/2025 121 (H) 39 - 117 U/L Final Lipase 03/14/2025 36 8 - 78 U/L Final Color Urine 03/14/2025 Yellow Final Appearance Urine 03/14/2025 Clear Final PH 03/14/2025 5.5 5.0 - 9.0 Final Glucose Urine UA 03/14/2025 >=1000 (A) Negative mg/dL Final Urine Blood 03/14/2025 Moderate (2+) (A) Negative Final Specific [place] - Urine 03/14/2025 1.025 1.005 - 1.025 Final Urine Protein 03/14/2025 Trace Neg-Trace mg/dL Final Urine Ketones 03/14/2025 Negative Negative mg/dL Final Nitrite Urine 03/14/2025 Negative Negative Final Leukocyte Esterase Urine 03/14/2025 Negative Negative Final RBC Urine 03/14/2025 11-20 (A) 0 - 2 /HPF Final Urine WBC 03/14/2025 0-5 0 - 5 /HPF Final Urine Squamous Epithelial Cell 03/14/2025 0-2 0 - 2 /HPF Final Urine Bacteria 03/14/2025 None Seen None Seen Final Hyaline Casts, Urine 03/14/2025 0-2 0 - 2 /LPF Final Orders Only on 02/27/2025 Component Date Value Ref Range Status Hemoglobin A1c 02/27/2025 9.1 (H) <6.0 % Final Hemoglobin A1C Reference Range Adults: 4.8 - 6.0 % Non diabetic: < 6.0 % Goal: < 7.0 %Additional Action Suggested: > 8.0 %Note: Hemoglobin A1c results are invalid for patients with abnormal amounts of HbF. Blood transfusions may impact the HbA1c concentration in the patient sample. Estimated Average Glucose 02/27/2025 214 mg/dL Final eAG = Estimated average glucose which is %A1C expressed asaverage glucose, using the formula of the C1D-XhhbhaiRrzmdez Glucose study (ADAG), Diabetes Care, Vol.31,#8,Feb. 2007 Bilirubin, Total 02/27/2025 0.7 0.0 - 1.0 mg/dL Final Bilirubin, Direct 02/27/2025 0.2 0.0 - 0.5 mg/dL Final Aspartate Amino Transferase 02/27/2025 30 5 - 31 U/L Final Alanine Aminotransferase 02/27/2025 36 (H) 0 - 31 U/L Final Total Protein 02/27/2025 7.3 6.5 - 8.0 g/dL Final Albumin Level 02/27/2025 4.4 3.5 - 5.0 g/dL Final Alkaline Phosphatase 02/27/2025 118 (H) 39 - 117 U/L Final === 03/14/25 === CT ABDOMEN PELVIS WO CONTRAST - Impression - 1. 7 mm proximal right ureteral stone with moderate hydronephrosis. 2. Small bilateral nonobstructing renal stones. 3. Cholelithiasis. 4. Small pericardial effusion. 5. Additional chronic findings as above. This document has been electronically signed by: Tommie Cates MD on 03/15/2025 00:48:09 Dictated By: Tommie Cates MD Signed By: <Electronically signed by Tommie Cates MD in OV> 03/15/2547 DD/ TD/TT: 03/15/2547 Legal Intern: Assessment & Plan Low back pain, unspecified back pain laterality, unspecified chronicity, unspecified whether sciatica present Orders: POCT urinalysis dipstick manually resulted Right kidney stone Drug-induced constipation Orders: senna-docusate sodium (Senokot-S) 8.6-50 MG tablet; Take 1 tablet by mouth Once per day for 10 days. 1 tablet daily as needed for constipation from medications, instructions in bahraini Assessment & Plan Low back pain: - Monitor for worsening back pain. If pain intensifies or does not improve, repeat imaging with CT scan to evaluate for obstruction. Right kidney stone: - Right kidney stone confirmed. Stone may be causing obstruction if symptoms worsen. - Continue tamsulosin to facilitate stone passage. Continue hydration. Take oxycodone as needed forsevere pain. Take acetaminophen and ibuprofen as needed for pain control. If pain or urinary symptoms worsen, repeat CT imaging. Follow up with urologist; appointment scheduled for March 26, 2025. If symptoms worsen before follow-up, contact urologist or return to clinic. Drug-induced constipation: - Constipation secondary to pain medication use. - Prescribed medication for constipation to be taken as needed. Monitor for constipation, especially when taking oxycodone. Prescription - Oxycodone, as needed for severe renal colic pain; risk of constipation - Ibuprofen, as needed for pain relief - Acetaminophen (Tylenol), as needed for pain relief - Laxative tablet, one tablet daily as needed for opioid-induced constipation - Tamsulosin, continue current dosing for ureteral stone passage Appointments - Urology follow-up appointment at [facility] on March 26, 2025 Current Medications[4] Based on our discussion, I have outlined the following instructions for you: - Keep track of your back pain and any problems with urination. If your pain or urinary symptoms get worse or do not improve, you will need to get a CT scan to check for any blockage. - Keep taking tamsulosin to help the kidney stone pass. - Drink plenty of water every day. - Take acetaminophen or ibuprofen if you have pain. If your pain is very strong, you can take oxycodone. - Watch out for constipation, especially if you are taking oxycodone for pain. If you become constipated, take the medication prescribed for constipation as needed. Next appointment(s): - Urology follow-up appointment at [facility] on March 26, 2025 Thank you again for your visit, and we look forward to supporting you in your journey to better health. This note was drafted using Ambient (AI) technology. The patient/patient's guardian has been informed and has consented to the use of this technology: Yes Visit Conducted in: Azeri Translation by: Provided by [employer] Phone Service ID # [id number] [1] Patient Active Problem List Diagnosis Ascending aorta [...] osteoarthritis of right knee Endometrial cancer (CMS/HCC) Pre-op exam Abdominal pain, left upper quadrant Encounter for screening for malignant neoplasm of colon History of adenomatous polyp of colon Right kidney stone Low back pain [2] No past medical history on file. [3] Allergies Allergen Reactions Amoxicillin Unknown Penicillin G Other reaction(s): Unknown Other reaction(s): Unknown Penicillin V Other reaction(s): unspecified Penicillins Other reaction(s): hives [4] Current Outpatient Medications: acetaminophen (Tylenol) 325 MG tablet, Take 2 tablets (650 mg) by mouth every 8 (eight) hours if needed for mild pain for up to 7 days., Disp: 30 tablet, Rfl: 0 acetic acid-hydrocortisone (Vosol-HC) otic solution, PLACE 5 DROPS INTO THE AFFECTED EAR(S) EVERY DAY, Disp: , Rfl: albuterol (2.5 MG/3ML) 0.083% nebulizer solution, Take 3 mL (2.5 mg) by nebulization if needed in the morning, at noon, and at bedtime for wheezing., Disp: 75 mL, Rfl: 11 amLODIPine (Norvasc) 5 MG tablet, TAKE 1 TABLET BY MOUTH EVERY MORNING, Disp: 90 tablet, Rfl: 3 ammonium lactate (Amlactin) 12 % cream, APPLY TO THE AFFECTED AREA(S) ON FEET TWICE DAILY NEEDEDFOR DRY SKIN, Disp: , Rfl: Arnuity Ellipta 200 MCG/ACT inhaler, INHALE 1 PUFF BY MOUTH EVERY DAY AT THE SAME TIME RINSE MOUTH AFTER USING, Disp: 30 each, Rfl: 3 Aspirin EC Adult Low Dose 81 MG EC tablet, TAKE 1 TABLET BY MOUTH EVERY MORNING, Disp: 90 tablet, Rfl: 3 Blood Glucose Monitoring Suppl ([email or web address].com Megargel Lite) w/Device kit, Use to test blood sugar two times daily, Disp: 1 kit, Rfl: 0 Calcium Carb-Cholecalciferol (Oyster Shell Calcium w/D) 500-5 MG-MCG tablet, TAKE 1 TABLET BY MOUTHTWICE DAILY IN THE MORNING AND IN THE EVENING, Disp: 180 tablet, Rfl: 3 Enmexbq-Rsorqkd-Mnmvra Elvin (Salonpas) 3.1-6-10 % patch, APPLY 1 TO 2 PATCHES TOPICALLY TO SKIN, LEAVE ON FOR 12 HOURS AND OFF FOR 12 HOURS DIRECTED NEEDED FOR PAIN, Disp: 60 patch, Rfl: 2 carvedilol (Coreg) 12.5 MG tablet, Take 1 tablet by mouth 2 times daily., Disp: , Rfl: clobetasol (Temovate) 0.05 % ointment, Apply topically 2 times daily., Disp: 30 g, Rfl: 3 Cyanocobalamin (B-12) 1000 MCG tablet controlled-release, Take 1 tablet by mouth in the morning., Disp: , Rfl: cyclobenzaprine (Flexeril) 5 MG tablet, TAKE 1 TABLET BY MOUTH AT BEDTIME NEEDED FOR CRAMPS, Disp: 30 tablet, Rfl: 2 D3 Super Strength 50 MCG (2000 UT) capsule, TAKE 1 CAPSULE BY MOUTH EVERY MORNING, Disp: 90 capsule, Rfl: 3 Farxiga 10 MG, TAKE 1 TABLET BY MOUTH EVERY MORNING, Disp: 90 tablet, Rfl: 3 fluticasone (Flonase) 50 MCG/ACT nasal spray, INSTILL 1 SPRAY IN EACH NOSTRIL TWICE DAILY, Disp: 16g, Rfl: 3 FREESTYLE LITE test strip, TEST BLOOD SUGAR TWICE DAILY, Disp: 100 strip, Rfl: 11 furosemide (Lasix) 20 MG tablet, Take 1 tablet by mouth Once per day., Disp: , Rfl: gabapentin (Neurontin) 100 MG capsule, TAKE 1 CAPSULE BY MOUTH TWICE DAILY AT NOON AND BEDTIME, Disp: 60 capsule, Rfl: 11 ibuprofen 600 MG tablet, TAKE 1 TABLET BY MOUTH EVERY 6 HOURS NEEDED FOR MILD PAIN, Disp: 56 tablet, Rfl: 0 irbesartan (Avapro) 300 MG tablet, TAKE 1 TABLET BY MOUTH EVERY MORNING, Disp: 90 tablet, Rfl: 3 isosorbide mononitrate ER (Imdur) 30 MG 24 hr tablet, Take 30 mg by mouth in the morning., Disp: , Rfl: Ketotifen Fumarate (Eye Itch Relief) 0.035 % solution, Administer 1 drop into both eyes 2 times daily., Disp: 10 mL, Rfl: 1 lidocaine (Lidoderm) 5 % patch, Apply 1 patch topically Once per day. Remove & discard patch within 12 hours or as directed by MD., Disp: 60 patch, Rfl: 2 loratadine (Claritin) 10 MG tablet, Take 1 tablet (10 mg) by mouth Once per day., Disp: 90 tablet, Rfl: 3 meclizine (Antivert) 25 MG tablet, TAKE 1 TABLET BY MOUTH THREE TIMES DAILY NEEDED FOR DIZZINESS, Disp: 60 tablet, Rfl: 3 Menthol-Methyl Salicylate (Muscle Rub) 10-15 % cream, Apply 1 application topically if needed in the morning and at bedtime (pain)., Disp: 85 g, Rfl: 3 metFORMIN XR (Glucophage-XR) 500 MG 24 hr tablet, TAKE 2 TABLETS BY MOUTH TWICE DAILY IN THE MORNING AND EVENING WITH MEALS, Disp: 360 tablet, Rfl: 3 montelukast (Singulair) 10 MG tablet, TAKE 1 TABLET BY MOUTH EVERY MORNING FOR ALLERGIES, Disp: 90 tablet, Rfl: 3 Yaedmtnc-Ocumuvevw-CU 1 % solution, Administer 4 drops into affected ear(s) 4 times daily., Disp: 10 mL, Rfl: 0 Nirmatrelvir&Ritonavir 300/100 (Paxlovid, 300/100,) 20 x 150 MG & 10 x 100MG tablet therapypack, Take 300 mg by mouth 2 times daily. Take 3 tablets 2x/day for 5 days, Disp: 30 each, Rfl: 0 Nyamyc [id number] UNIT/GM powder, APPLY TOPICALLY TO AFFECTED AREA(S) TWICE DAILY ON AFFECTED AREA(S) DIRECTED UNDER A ABDOMEN AND BETWEEN de los THIGHS, Disp: 120 g, Rfl: 2 ofloxacin (Ocuflox) 0.3 % ophthalmic solution, , Disp: , Rfl: omeprazole (PriLOSEC) [address] capsule, Take 2 capsules by mouth Once per day., Disp: , Rfl: omeprazole (PriLOSEC) [address] capsule, Take 1 capsule by mouth at bed time., Disp: , Rfl: prednisoLONE acetate (Pred-Forte) 1 % ophthalmic suspension, , Disp: , Rfl: pyridoxine (Vitamin B-6) 100 MG tablet, Take 100 mg by mouth in the morning., Disp: , Rfl: rosuvastatin (Crestor) 10 MG tablet, TAKE 1 TABLET BY MOUTH EVERY EVENING, Disp: 90 tablet, Rfl: 3 senna-docusate sodium (Senokot-S) 8.6-50 MG tablet, Take 1 tablet by mouth Once per day for 10 days. 1 tablet daily as needed for constipation from medications, instructions in bahraini, Disp: 10 tablet, Rfl: 0 simethicone (Mylicon) 125 MG chewable tablet, Chew 125 mg in the morning, at noon, in the evening, and at bedtime., Disp: , Rfl: Skin Protectants, Misc. (eucerin) cream, Apply 1 application topically in the morning, at noon, in the evening, and at bedtime., Disp: , Rfl: tamsulosin (Flomax) 0.4 MG 24 hr capsule, Take 1 capsule (0.4 mg) by mouth Once per day., Disp: 7 capsule, Rfl: 0 tamsulosin (Flomax) 0.4 MG 24 hr capsule, Take 1 capsule (0.4 mg) by mouth Once per day., Disp: 7 capsule, Rfl: 0 TRUEplus Lancets 33G misc, TEST BLOOD SUGAR TWICE DAILY, Disp: 100 each, Rfl: 11 Ventolin HFA 108 (90 Base) MCG/ACT inhaler, Inhale 2 puffs Every 4-6 hours as needed for wheezing or shortness of breath., Disp: 18 g, Rfl: 2 documented in this encounter Miscellaneous Notes * Assessment & Plan Note - Terri Kruse NP - 03/19/2025 9:20 AM EDTAssociated Problem(s): Low back pain Orders: POCT urinalysis dipstick manually resulted * Assessment & Plan Note - Terri Kruse NP - 03/19/2025 9:20 AM EDTAssociated Problem(s): Right kidney stone documented in this encounter Plan of Treatment Not on file documented as of this encounter Procedures Procedure Name Priority Date/Time Associated Diagnosis Comments POCT URINALYSIS DIPSTICK Routine 03/19/2025 9:07 AM EDT Low back pain, unspecified back pain laterality, unspecified chronicity, unspecified whether sciatica present documented in this encounter Results * (ABNORMAL) POCT urinalysis dipstick manually resulted (03/19/2025 9:07 AM EDT) Color, UA Yellow Clarity, UA Clear Glucose, UA Negative Bilirubin, UA Negative Ketones, UA Negative Spec Grav, UA 1.025 Blood, UA Positive(A) Negative, None Detected Comment:small pH, UA 5.5 Protein, UA Negative Urobilinogen, UA 0.2 Leukocytes, UA Few 15(A) Negative, Rare, Trace Nitrite, UA Negative Negative, None Detected Appearance, UA Ok Urine 03/19/2025 9:0 7 AM EDT Terri Kruse PROGRAM OR PROJECT ADMINISTRATOR POINT OF CARE TEST ENTER/EDIT OR DERABLES Final Result documented in this encounter Visit Diagnoses Diagnosis Right kidney stone- Primary Low back pain, unspecified back pain laterality, unspecified chronicity, unspecified whether sciatica present Drug-induced constipation Other constipation documented in this encounter Additional Health Concerns Assessment Noted Time PHQ-9 Depression Total Score: 0 10/21/19 25 10:26 AM EDT documented as of this encounter Care Teams Home Organizer Relationship Specialty Start Date End Date Amina Nieves MD [address] [place] [id number] PCP - General Family Medicine 04/07/21 documented as of this encounter
--- OUTSIDE RECORDS SUMMARY | 2025-03-23 09:00 | XMS_ITS | Encounter Summary ---
Author Organization [employer] Address [address] [place] [address] [address] [place] [address] Care Team Providers Care Misdraw Hand Name Role Phone Amina Nieves MD Primary Care Provider [phone] Reason for Visit * Reason Comments Follow-up Encounter Details Date Type Department Care Team ([facility] st Contact Info) Description 03/23/2025 9:00 AM EDT Office Visit [facility] [address] [place] [address] Amina Nieves MD [address] [place] [address] Iron deficiency anemia, unspecified iron deficiency anemia type (Primary Dx); Type 2 diabetes mellitus with diabetic neuropathy, without long-term current use of insulin ([facility]) Social History Tobacco Use Types Packs/Day Years [...] Reading Time Taken Comments Blood Pressure 130/60 03/23/2025 9:16 AM EDT Pulse 80 03/23/2025 9:16 AM EDT Temperature 36.3 C (97.3 F) 03/23/2025 9:16 AM EDT Respiratory Rate 20 03/23/2025 9:16 AM EDT Oxygen Saturation - - Inhaled Oxygen Concentration - - Weight 106 kg (234 lb 9.6 oz) 03/23/2025 9:16 AM EDT Height 149.9 cm (4' 11 ) 03/23/2025 9:16 AM EDT Body Mass Index 47.38 03/23/2025 9:16 AM EDT documented in this encounter Plan of Treatment Scheduled Orders Name Type Priority Associated Diagnoses Orde r Schedule Reticulocyte Count Lab Routine Iron deficiency anemia, unspecified iron deficiency anemia type Expected: 03/23/2025, Expires: 03/23/2026 Iron, TIBC And Ferritin Panel Lab Routine Iron deficiency anemia, unspecified iron deficiency anemia type Expected: 03/23/2025 (Approximate), Expires: 03/23/2026 documented as of this encounter Procedures Procedure Name Priority Date/Time Associated Diagnosis Comments POCT GLUCOSE Routine 03/23/2025 9:17 AM EDT Type 2 diabetes mellitus with diabetic neuropathy, without long-term current use of insulin ([facility]) documented in this encounter Results * (ABNORMAL) POCT Glucose (03/23/2025 9:17 AM EDT) Glucose Blood, POC 284(A) 60 - 200 mg/dL QC Media Lot # [id number] Lot# Expiration Date Blood Capillary blood specimen / Unknown 03/23/2025 9:17 AM EDT Amina Nieves MD POINT OF CARE TEST ENTER/EDIT ORDERABLES Final Result documented in this encounter Visit Diagnoses Diagnosis Iron deficiency anemia, unspecified iron deficiency anemia type- Primary Type 2 diabetes mellitus with diabetic neuropathy, without long-term current use of insulin ([facility]) documented in this encounter Additional Health Concerns Assessment Noted Time PHQ-9 Depression Total Score: 0 10/21/19 25 10:26 AM EDT documented as of this encounter Care Teams Misdraw Hand Relationship Specialty Start Date End Date Amina Nieves MD [address] [place] [address] PCP - General Family Medicine 04/07/21 documented as of this encounter
--- OUTSIDE RECORDS SUMMARY | 2025-03-23 11:11 | XMS_ITS | Encounter Summary ---
Demographics Address [address] [place] [address] [address] [place] [address] Work Phone Mobile Phone Home Phone Preferred Language es Marital Status Single Worship Affiliation Unknown Race Other Race Ethnic Group Unknown Author Organization [employer] Address [address] [place] [address] [address] [place] [address] Care Team Providers Care Biotechnologist Name Role Phone Amina Nieves MD Primary Care Provider [phone] Encounter Details Date Type Department Care Team (Latest Contact Info) Description 03/19/2025 Travel Social History Tobacco Use Types Packs/Day Years [...] documented as of this encounter Care Teams Biotechnologist Relationship Specialty Start Date End Date Amina Nieves MD [address] [place] [address] PCP - General Family Medicine 04/07/21 documented as of this encounter
--- OUTSIDE RECORDS SUMMARY | 2025-03-23 11:11 | XMS_ITS | Encounter Summary ---
Author Organization [employer] Address [address] [place] [address] [address] [place] [address] Care Team Providers Care Special Machine Stitcher Name Role Phone Amina Nieves MD Primary Care Provider [phone] Encounter Details Date Type Department Care Team (Late st Contact Info) Description 10/26/2024 Telephone [facility] MEDICINE [address] [place], [place] [phone] Amina Nieves MD [address] [place], [place] [phone] Social History Tobacco Use Types Packs/Day Years [...] documented as of this encounter Care Teams Special Machine Stitcher Relationship Specialty Start Date End Date Amina Nieves MD [address] [place] [address] PCP - General Family Medicine 04/07/21 documented as of this encounter
--- OUTSIDE RECORDS SUMMARY | 2025-03-23 11:11 | XMS_ITS | Encounter Summary ---
Author Organization [employer] Address [address] [place] [address] [address] [place] [address] Care Team Providers Care Assistant Branch Manager Name Role Phone Amina Nieves MD Primary Care Provider [phone] Reason for Visit * Reason Onset Date Comments chart prep 03/22/2025 Encounter Details Date Type Department Care Team ([facility] st Contact Info) Description 03/22/2025 Telephone [facility] MEDICINE [address] [place] [address] mAina Nieves MD [address] [place] [address] chart prep Social History Tobacco Use Types Packs/Day Years [...] encounter Miscellaneous Notes * Telephone Encounter - Jo Black [place] - 03/22/2025 8:55 AM EDT Chart Prep Labs: done Images: done Referrals: complete Vaccines due: Covid, Flu, and RSV Screenings: foot exam Overdue care gaps: Glucose, PHQ-9, and IVY-7 A1c done 02/27/2025 9.1% documented in this encounter Plan of Treatment Not on file documented as of this encounter Visit Diagnoses Not on filedocumented in this encounter Additional Health Concerns Assessment Noted Time PHQ-9 Depression Total Score: 0 10/21/19 25 10:26 AM EDT documented as of this encounter Care Teams Assistant Branch Manager Relationship Specialty Start Date End Date Amina Nieves MD [address] [place] [address] PCP - General Family Medicine 04/07/21 documented as of this encounter
--- OUTSIDE RECORDS SUMMARY | 2025-03-23 11:11 | XMS_ITS | Encounter Summary ---
Author Organization [employer] Address [address] [place] [address] [address] [place] [address] Care Team Providers Care Business Analyst Name Role Phone Amina Nieves MD Primary Care Provider [phone] Reason for Referral * Consultation (Routine) - Authorized Specialty Diagnoses / Procedures Referred By Contac t Referred To Contact Pharmacy Diagnoses HTN (hypertension) Amina Nieves MD [address] [place] [address] Phone: tel: fax: Referral ID Status Reason Start Date Expiration Date Visits Requested Visits Authorized [id number] Authorized Continuity of Care 10/25/2024 10/25/2025 6 6 Encounter Details Date Type Department Care Team (Late st Contact Info) Description 10/25/2024 Orders Only [facility] MEDICINE [address] [place], [place] [phone] Amina Nieves MD [address] [place], [place] [phone] HTN (hypertension) (Primary Dx) Social History Tobacco [...] documented as of this encounter Care Teams Business Analyst Relationship Specialty Start Date End Date Amina Nieves MD [address] [place] [address] PCP - General Family Medicine 04/07/21 documented as of this encounter
--- OUTSIDE RECORDS SUMMARY | 2025-03-23 11:11 | XMS_ITS | Encounter Summary ---
Author Organization [employer] Address [address] [place] [address] [address] [place] [address] Care Team Providers Care Silk Opener Name Role Phone Amina Nieves MD Primary Care Provider [phone] Encounter Details Date Type Department Care Team (Late st Contact Info) Description 01/26/2024 Orders Only [facility] MEDICINE [address] [place], [place] [phone] Amina Nieves MD [address] [place], [place] [phone] Social History Tobacco Use Types Packs/Day Years [...] documented as of this encounter Care Teams Silk Opener Relationship Specialty Start Date End Date Amina Nieves MD [address] [place] [id number] PCP - General Family Medicine 04/07/21 documented as of this encounter
--- OUTSIDE RECORDS SUMMARY | 2025-03-23 11:11 | XMS_ITS | Encounter Summary ---
Demographics Address [address] [place] [address] [address] [place] [address] Work Phone Mobile Phone Home Phone Preferred Language es Marital Status Single Latter-Day Affiliation Unknown Race Other Race Ethnic Group Unknown Author Organization [employer] Address [address] [place] [address] [address] [place] [address] Care Team Providers Care Records Associate Name Role Phone Amina Nieves MD Primary Care Provider [phone] Encounter Details Date Type Department Care Team (Latest Contact Info) Description 03/23/2025 Travel Social History Tobacco Use Types Packs/Day [...] documented as of this encounter Care Teams Records Associate Relationship Specialty Start Date End Date Amina Nieves MD [address] [place] [address] PCP - General Family Medicine 04/07/21 documented as of this encounter
--- OUTSIDE RECORDS SUMMARY | 2025-03-23 11:11 | XMS_ITS | Clinical Summary ---
Demographics Address [address] [place] [address] [address] [place] [address] Work Phone Mobile Phone Home Phone Preferred Language es Marital Status Single Congregation Affiliation Unknown Race Other Race Ethnic Group Unknown Author Organization [employer] Address [address] [place] [address] [address] [place] [address] Care Team Providers Care Flatwork Presser Name Role Phone Amina Nieves MD Primary Care Provider [phone] Allergies Active Allergy Reactions Criticality Noted Date Comments Amoxicillin Unknown 05/27/2022 Penicillin G 05/27/2022 Other reaction(s): Unknown Other reaction(s): Unknown Penicillin V 08/19/2010 Other reaction(s): unspecified Penicillins 03/12/2023 Other reaction(s): hives Medications Skin Protectants, Misc. (eucerin) cream Apply 1 application topically in the morning, at noon, in the evening, and at bedtime. 2020 Active simethicone (Mylicon) 125 MG chewable tablet Chew 125 mg in the morning, at noon, in the evening, and at bedtime. 2021 Active omeprazole (PriLOSEC) [address] capsule Take 1 capsule by mouth at bed time. Active isosorbide mononitrate ER (Imdur) 30 MG 24 hr tablet Take 30 mg by mouth in the morning. 2021 Active Menthol-Methyl Salicylate (Muscle Rub) 10-15 % creamIndications: Neck pain Apply 1 application topically if needed in the morning and at bedtime (pain). 85 g 3 2022 Active Ventolin HFA 108 (90 Base) MCG/ACT inhaler Inhale 2 puffs Every 4-6 hours as needed for wheezing or shortness of breath. 18 g 2 2022 Active Kintnku-Dxkanqz-K ethyl Elvin (Salonpas) 3.1-6-10 % patch APPLY 1 TO 2 PATCHES TOPICALLY TO SKIN, LEAVE ON FOR 12 HOURS AND OFF FOR 12 HOURS DIRECTED NEEDED FOR PAIN 60 patch 2 2022 Active Neomycin-Polymyxi n-HC 1 % solution Administer 4 drops into affected ear(s) 4 times daily. 10 mL 2022 Active albuterol (2.5 MG/3ML) 0.083% nebulizer solution Take 3 mL (2.5 mg) by nebulization if needed in the morning, at noon, and at bedtime for wheezing. 75 mL 11 2023 Active furosemide (Lasix) 20 MG tablet Take 1 tablet by mouth Once per day. 2023 Active acetic acid-hydrocortiso ne (Vosol-HC) otic solution PLACE 5 DROPS INTO THE AFFECTED EAR(S) EVERY DAY 2023 Active TRUEplus Lancets 33G misc TEST BLOOD SUGAR TWICE DAILY 100 each 11 2023 Active FREESTYLE LITE test strip TEST BLOOD SUGAR TWICE DAILY 100 strip 11 2023 Active Ketotifen Fumarate (Eye Itch Relief) 0.035 % solutionIndicatio ns:Allergy, subsequent encounter Administer 1 drop into both eyes 2 times daily. 10 mL 1 2023 Active Farxiga 10 MGIndications:Typ e 2 diabetes mellitus with diabetic neuropathy, without long-term current use of insulin (CMS/HCC) TAKE 1 TABLET BY MOUTH EVERY MORNING 90 tablet 3 2023 Active lidocaine (Lidoderm) 5 % patchIndications: Neck pain, musculoskeletal Apply 1 patch topically Once per day. Remove & discard patch within 12 hours or as directed by . 60 patch 2 2024 Active Aspirin EC Adult Low Dose 81 MG EC tabletIndications :Type 2 diabetes mellitus with diabetic neuropathy, unspecified (CMS/HCC) TAKE 1 TABLET BY MOUTH EVERY MORNING 90 tablet 3 2024 Active montelukast (Singulair) 10 MG tabletIndications :Allergic rhinitis, unspecified seasonality, unspecified trigger TAKE 1 TABLET BY MOUTH EVERY MORNING FOR ALLERGIES 90 tablet 3 2024 Active Blood Glucose Monitoring Suppl (FreeStyle [place] Lite) w/Device kitIndications:Ty pe 2 diabetes mellitus with diabetic neuropathy, without long-term current use of insulin ([facility]) Use to test blood sugar two times daily 1 kit 2024 Active meclizine (Antivert) 25 MG tabletIndications :Dizziness TAKE 1 TABLET BY MOUTH THREE TIMES DAILY NEEDED FOR DIZZINESS 60 tablet 3 2024 Active cyclobenzaprine (Flexeril) 5 MG tabletIndications :Leg cramps TAKE 1 TABLET BY MOUTH AT BEDTIME NEEDED FOR CRAMPS 30 tablet 2 2024 Active loratadine (Claritin) 10 MG tablet Take 1 tablet (10 mg) by mouth Once per day. 90 tablet 3 10/20 Active ofloxacin (Ocuflox) 0.3 % ophthalmic solution 2024 Active prednisoLONE acetate (Pred-Forte) 1 % ophthalmic suspension 2024 Active clobetasol (Temovate) 0.05 % ointment Apply topically 2 times daily. 30 g 3 2024 Active D3 Super Strength 50 MCG (2000 UT) capsule TAKE 1 CAPSULE BY MOUTH EVERY MORNING 90 capsule 3 2024 Active ibuprofen 600 MG tabletIndications :Acute nonintractable headache, unspecified headache type,Neck pain, musculoskeletal TAKE 1 TABLET BY MOUTH EVERY 6 HOURS NEEDED FOR MILD PAIN 56 tablet 2024 Active carvedilol (Coreg) 12.5 MG tablet Take 1 tablet by mouth 2 times daily. 2024 Active pyridoxine (Vitamin B-6) 100 MG tablet Take 100 mg by mouth in the morning. 2024 Active metFORMIN XR (Glucophage-XR) 500 MG 24 hr tablet TAKE 2 TABLETS BY MOUTH TWICE DAILY IN THE MORNING AND EVENING WITH MEALS 360 tablet 3 2024 Active Nyamyc 973231 UNIT/GM powderIndications :Skin candidiasis APPLY TOPICALLY TO AFFECTED AREA(S) TWICE DAILY ON AFFECTED AREA(S) DIRECTED UNDER A ABDOMEN AND BETWEEN de los THIGHS 120 g 2 2024 Active Arnuity Ellipta 200 MCG/ACT inhaler INHALE 1 PUFF BY MOUTH EVERY DAY AT THE SAME TIME RINSE MOUTH AFTER USING 30 each 3 2024 Active fluticasone (Flonase) 50 MCG/ACT nasal spray INSTILL 1 SPRAY IN EACH NOSTRIL TWICE DAILY 16 g 3 2024 Active gabapentin (Neurontin) 100 MG capsule TAKE 1 CAPSULE BY MOUTH TWICE DAILY AT NOON AND BEDTIME 60 capsule 11 2024 Active ammonium lactate (Amlactin) 12 % cream APPLY TO THE AFFECTED AREA(S) ON FEET TWICE DAILY NEEDED FOR DRY SKIN 2024 Active Cyanocobalamin (B-12) 1000 MCG tablet controlled-releas e Take 1 tablet by mouth in the morning. 2024 Active omeprazole (PriLOSEC) [address] capsule Take 2 capsules by mouth Once per day. 2024 Active amLODIPine (Norvasc) 5 MG tablet TAKE 1 TABLET BY MOUTH EVERY MORNING 90 tablet 3 2024 Active irbesartan (Avapro) 300 MG tablet TAKE 1 TABLET BY MOUTH EVERY MORNING 90 tablet 3 2024 Active rosuvastatin (Crestor) 10 MG tablet TAKE 1 TABLET BY MOUTH EVERY EVENING 90 tablet 3 2024 Active Calcium Carb-Cholecalcife rol (Oyster Shell Calcium w/D) 500-5 MG-MCG tablet TAKE 1 TABLET BY MOUTH TWICE DAILY IN THE MORNING AND IN THE EVENING 180 tablet 3 2024 Active tamsulosin (Flomax) 0.4 MG 24 hr capsule Take 1 capsule (0.4 mg) by mouth Once per day. 7 capsule 2024 Active senna-docusate sodium (Senokot-S) 8.6-50 MG tabletIndications :Drug-induced constipation Take 1 tablet by mouth Once per day for 10 days. 1 tablet daily as needed for constipation from medications, instructions in somali 10 tablet 03/29 Active acetaminophen (Tylenol) 325 MG tablet Take 2 tablets (650 mg) by mouth every 8 (eight) hours if needed for mild pain for up to 7 days. 30 tablet 03/26 Active tamsulosin (Flomax) 0.4 MG 24 hr capsule Take 1 capsule (0.4 mg) by mouth Once per day. 7 capsule 2024 Active Bisacodyl EC 5 MG EC tablet TAKE 4 TABLETS BY MOUTH ONCE AT NOON THE DAY BEFORE COLONOSCOPY 2024 Active ondansetron ODT (Zofran-ODT) 4 MG disintegrating tablet DISSOLVE 1 TABLET ON TONGUE THREE TIMES DAILY NEEDED FOR NAUSEA AND VOMITING 2024 Active oxyCODONE (Roxicodone) 5 MG immediate release tablet Take 1 tablet by mouth every 8 (eight) hours if needed for pain. 2024 Active polyethylene glycol, PEG, 3350 (Glycolax) 17 GM/SCOOP powder MIX DIRECTED AND TAKE DIRECTED BY [facility] 2024 Active ferrous gluconate (Fergon) 324 (38 Fe) MG tablet Take 1 pill every Wednesday, Wednesday, and Wednesday. Take with a full glass of water or Vit C containing juice, and ideally 1 hour before a meal or 2 hours after a meal 36 tablet 2024 Active acetaminophen (Tylenol) 325 MG tablet ANGELA 3 TABLETAS POR LA BOCA CADA 6 HORAS 03/19 Discontinued( Reorder (will not trigger notification to Pharmacy)) Senna-Time 8.6 MG tablet ANGELA 1 TABLETA POR LA BOCA CADA MÓNICA A LA HORA DE DORMIR 03/19 Discontinued( Therapy completed) rosuvastatin (Crestor) 10 MG tablet TAKE 1 TABLET BY MOUTH EVERY EVENING 90 tablet 3 02/27 Discontinued Calcium Carb-Cholecalcife rol (Oyster Shell Calcium w/D) 500-5 MG-MCG tablet TAKE 1 TABLET BY MOUTH TWICE DAILY IN THE MORNING AND IN THE EVENING 180 tablet 3 03/21 Discontinued Nirmatrelvir&Justin navir 300/100 (Paxlovid, 300/100,) 20 x 150 MG & 10 x 100MG tablet therapy pack Take 300 mg by mouth 2 times daily. Take 3 tablets 2x/day for 5 days 30 each 03/23 Discontinued( Therapy completed) Active Problems Problem Noted Date Diagnosed Date Right kidney stone 03/19/2025 Assessment & Plan (03/19/2025 11:35 AM EDT): Low back pain 03/19/2025 Assessment & Plan (03/19/2025 11:35 AM EDT): Orders: POCT urinalysis dipstick manually resulted Abdominal pain, left upper quadrant 01/26/2025 Encounter for screening for malignant neoplasm o f colon 01/26/2025 History of adenomatous polyp of colon 01/26/2025 Pre-op exam 10/11/2024 Endometrial cancer 12/20/2023 Assessment & Plan (12/23/2023 2:30 PM EDT): [facility] vice president global digital marketing/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 Ying 01/2023 - referred to [facility] by Dr. Ying with Dr. Rodriguez at [facility] vice president global digital marketing Oncology on 01/14/2023 at 10:00. -CT scan [...] Encounters Date Type Department Care Team Description 03/23/2025 9:00 AM EDT Office Visit [facility] [address] [place] [phone] Amina Nieves MD Iron deficiency anemia, unspecified iron deficiency anemia type (Primary Dx); Type 2 diabetes mellitus with diabetic neuropathy, without long-term current use of insulin ([facility]) 03/23/2025 Travel 03/22/2025 Telephone [facility] [address] [place] [phone] Amina Nieves MD chart prep 03/19/2025 9:20 AM EDT Office Visit [facility] [address] [place] [phone] Terri Kruse, [place]AT Right kidney stone (Primary Dx); Low back pain, unspecified back pain laterality, unspecified chronicity, unspecified whether sciatica present; Drug-induced constipation 03/19/2025 Travel 03/19/2025 Refill [facility] [address] [place] [address] Amina Nieves MD 03/14/2025 Orders Only GENERIC EXTERNAL DATA DEPARTMENT Provider, Generic External Data 02/27/2025 Orders Only GENERIC EXTERNAL DATA DEPARTMENT Provider, Generic External Data 02/26/2025 Refill [facility] [address] [place] [address] Amina Nieves MD 02/14/2025 Refill [facility] [address] [place] [phone] Amina Nieves MD 01/29/2025 Orders Only [facility] [address] [place] [phone] Amina Nieves MD 01/26/2025 Telephone [facility] [address] [place] [phone] Amina Nieves MD No Show 01/25/2025 Telephone [facility] [address] [place] [phone] Amina Nieves MD Chart prep 01/18/2025 Refill [facility] [address] [place] [phone] Jhoana Worrell, 01/18/2025 Refill [facility] [address] [place] [phone] Amina Nieves MD 01/08/2025 Refill [facility] [address] [place] [phone] Amina Nieves MD Skin candidiasis from Last 3 Months Immunizations Immunization Administration [...] 20 03/23/2025 9:16 AM EDT Oxygen Saturation 98% 03/19/2025 9:00 AM EDT Inhaled Oxygen Concentration - - Weight 106 kg (234 lb 9.6 oz) 03/23/2025 9:16 AM EDT Height 149.9 cm (4' 11 ) 03/23/2025 9:16 AM EDT Body Mass Index 47.38 03/23/2025 9:16 AM EDT Plan of Treatment Health Maintenance Due Date Last Done Comments CT Colonography 1955 FIT DNA/Cologuard 1955 FIT 1955 FOBT 1955 Sigmoidoscopy 1955 RSV Patients and Patients Aged 60 years or older (1 - Risk 60-74 years 1-dose series) 2013 Colonoscopy 10/17/2024 10/18/2019 COVID-19 Vaccine ( season) 2025 02/25/2022, 12/30/2020, 12/02/2020 Influenza Vaccine (#1) 2025 , 05/05/2023, 06/22/2022, [...] 10/11/2024 Depression Screening 10/20/2025 10/20/2024, 10/21/19 25 Mammogram 01/29/2026 01/29/2025, 12/10, 10/30/2021, Additional history exists Tobacco Screening 03/23/2026 03/23/2025 Eye Exam 05/05/2026 05/05/2024 DTaP/Tdap/Td Vaccines (3 [...] neuropathy, without long-term current use of insulin ([facility]) POCT URINALYSIS DIPSTICK Routine 03/19/2025 9:07 AM EDT Low back pain, unspecified back pain laterality, unspecified chronicity, unspecified whether sciatica present CT ABDOMEN PELVIS WO CONTRAST Routine 03/15/2025 12:48 AM EDT URINALYSIS, COMPLETE, WITH REFLEX TO CULTURE Routine [...] Health Maintenance Results * (ABNORMAL) POCT Glucose (03/23/2025 9:17 AM EDT) Glucose Blood, POC 284(A) 60 - 200 mg/dL QC Media Lot # [id number] Lot# Expiration Date Blood Capillary blood specimen / Unknown 03/23/2025 9:17 AM EDT us Amina Nieves MD POINT OF CARE TEST ENTER/EDIT ORDERABLES Final Result * (ABNORMAL) POCT urinalysis dipstick manually resulted [...] None Detected Appearance, UA Ok Urine 03/19/2025 9:07 AM EDT us Terri Kruse NP POINT OF CARE TEST ENTER/EDIT OR DERABLES Final Result * CT Abdomen Pelvis w/o Contrast (03/15/2025 12:48 AM EDT) Anatomical Region Laterality Modality Body, Pelvis, Abdomen Computed T omography 03/15/2025 12:4 8 AM EDT Narrative 03/15/2025 12:50 AM EDT [address] [address] [address] Scan Report Signed Patient: Karon Nur MR#: [id number] : 1955 Acct:[id number] Age/Sex: 69 / F ADM Date: 03/14/25 Loc: HO.ED Attending Dr: Ordering Physician: Shahnaz Varghese MD Date of Service: 03/15/25 Procedure(s): CT abdomen pelvis wo IV con Accession Number(s): [id number] cc: Amina Nieves; Shahnaz Varghese MD Report Number: [id number]: Total DLP = 978.00 mGy-cm Reason for Exam: right flank pain CLINICAL HISTORY: right flank pain CT abdomen and pelvis without contrast Comparison: CT/REG/ME/SR - CT ABDOMEN PELVIS W IV CON - 02/03/23 13:47 EDT Findings: There is mild bibasilar atelectasis. There is mosaic attenuation in the lung bases consistent with air trapping. Partially visualized mild left atrial enlargement. There is a small pericardial effusion. There is mild hepatomegaly. There is cholelithiasis. Gallbladder appears otherwise normal. The pancreas, spleen, and adrenal glands are unremarkable. There is moderate right hydronephrosis. There is a 7 mm stone in the proximal right ureter. There are a couple small bilateral nonobstructing renal stones measuring up to 3 mm in the left kidney. The appendix is normal. The remainder of the gastrointestinal tract is unremarkable. There is a gnlqs-by-ssvwklci sized fat containing umbilical hernia. There are no enlarged lymph nodes. The aorta is normal in diameter. Patient is status post hysterectomy. The bladder is unremarkable. There are degenerative changes in the lumbar spine. There is no acute fracture or suspicious lytic or sclerotic lesion. IMPRESSION: 1. 7 mm proximal right ureteral stone with moderate hydronephrosis. 2. Small bilateral nonobstructing renal stones. 3. Cholelithiasis. 4. Small pericardial effusion. 5. Additional chronic findings as above. This document has been electronically signed by: Tommie Cates MD on 03/15/2025 00:48:09 Dictated By: Tommie Cates MD Signed By: <Electronically signed by Tommie Cates MD in OV> 03/15/2547 DD/ TD/TT: 03/15/2547 Stage Set Up Worker: Procedure Note Donotuseinterpreter, Image - 03/15/[address] [place] [address] [address] Scan Report Signed Patient: Ron Nur#: [id number] : 1955cct:[id number] Age/Sex: 69 / FADM Date: 03/14/25 Loc: HO.ED Attending Dr: Ordering Physician: Shahnaz Varghese MD Date of Service: 03/15/25 Procedure(s): CT abdomen pelvis wo IV con Accession Number(s): [id number] cc: Amina Nieves; Shahnaz Varghese MD Report Number: [id number]: Total DLP = 978.00 mGy-cm Reason for Exam: right flank pain CLINICAL HISTORY: right flank pain CT abdomen and pelvis without contrast Comparison: CT/REG/ME/SR - CT ABDOMEN PELVIS W IV CON - 02/03/23 13:47 EDT Findings: There is mild bibasilar atelectasis. There is mosaic attenuation in the lung bases consistent with air trapping. Partially visualized mild left atrial enlargement. There is a small pericardial effusion. There is mild hepatomegaly. There is cholelithiasis. Gallbladder appears otherwise normal. The pancreas, spleen, and adrenal glands are unremarkable. There is moderate right hydronephrosis. There is a 7 mm stone in the proximal right ureter. There are a couple small bilateral nonobstructing renal stones measuring up to 3 mm in the left kidney. The appendix is normal. The remainder of the gastrointestinal tract is unremarkable. There is a meuyb-mm-uyllciwb sized fat containing umbilical hernia. There are no enlarged lymph nodes. The aorta is normal in diameter. Patient is status post hysterectomy. The bladder isunremarkable. There are degenerative changes in the lumbar spine. There is no acute fracture or suspicious lytic or sclerotic lesion. IMPRESSION: 1. 7 mm proximal right ureteral stone with moderate hydronephrosis. 2. Small bilateral nonobstructing renal stones. 3. Cholelithiasis. 4. Small pericardial effusion. 5. Additional chronic findings as above. This document has been electronically signed by: Tommie Cates MD on 03/15/2025 00:48:09 Dictated By: Tommie Cates MD Signed By: <Electronically signed by Tommie Cates MD in OV> 03/15/2547 DD/ TD/TT: 03/15/2547 Stage Set Up Worker: [facility] External Provider IMG CT PROCEDURES Final Result * (ABNORMAL) Urinalysis, Complete, with Reflex to Culture (03/14/2025 10:50 PM EDT) Color Urine Yellow [facility] Appearance Urine Clear [facility] PH 5.5 5.0 - 9.0 [facility] Glucose Urine UA >=1000(A) Negative mg/dL [facility] Urine Blood Moderate (2+)(A) Negative [facility] Specific [place] - Urine 1.025 1.005 - 1.025 [facility] Urine Protein Trace Neg-Trace mg/dL [facility] Urine Ketones Negative Negative mg/dL [facility] Nitrite Urine Negative Negative [facility] Leukocyte Esterase Urine Negative Negative [facility] RBC Urine 11-20(A) 0 - 2 /HPF [facility] Urine WBC 0-5 0 - 5 /HPF [facility] Urine Squamous Epithelial Cell 0-2 0 - 2 /HPF [facility] Urine Bacteria None Seen None Seen [facility] Hyaline Casts, Urine 0-2 0 - 2 /LPF [facility] 03/14/2025 10:5 0 PM EDT 03/14/2025 10:53 PM EDT Narrative [facility] - 03/14/2025 11:17 PM EDT Urine, Clean Catch Generic External Data Provider LAB URINE ORDERAB LES Final Result [facility] [address] [place] [address] [phone] * (ABNORMAL) CBC auto differential (03/14/2025 8:52 PM EDT) White Blood Count 9.5 4.8 - 10.8 X10*3/uL [facility] Red Blood Count 4.25 4.20 - 5.50 X10*6/uL [facility] Hemoglobin 11.7(L) 12.0 - 16.0 g/dl [facility] Hematocrit 33.9(L) 37.0 - 47.0 % [facility] Mean Corpuscular Volume 79.8(L) 80.0 - 98.0 fL [facility] Mean Corpuscular Hemoglobin 27.5 27.0 - 33.0 pg [facility] Mean Corpuscular HGB Conc 34.5 31.0 - 35.0 g/dl [facility] Red Cell Distribution Width 14.2 11.0 - 16.0 % [facility] Platelet Count 244 160 - 400 X10*3/uL [facility] Mean Platelet Volume 11.9 9.4 - 12.3 fL [facility] Neutrophils Percent Auto 78.3(H) 45 - 73 % [facility] Imm Gran Pct Auto 0.2 0.0 - 0.4 % [facility] Lymphocytes Percent Auto 14.4(L) 20 - 40 % [facility] Monocytes Percent Auto 5.8 2 - 11 % [facility] Eosinophils Percent Auto 1.0 0 - 4 % [facility] Basophils Percent Auto 0.3 0 - 2 % [facility] NRBC Pct Auto 0.0 0.0 - 0.2 /100WBC [facility] Neutrophils Absolute Auto 7.4 2.0 - 8.3 x10*3/uL [facility] Imm Gran Abs Auto 0.02 0.00 - 0.03 X10*3/uL [facility] Lymphocytes Absolute Auto 1.4 1.2 - 4.9 X10*3/uL [facility] Monocytes Absolute Auto 0.6 0.1 - 1.2 X10*3/uL [facility] Eosinophils Absolute Auto 0.1 0.0 - 0.4 X10*3/uL [facility] Basophils Absolute Auto 0.0 0.0 - 0.2 X10*3/uL [facility] NRBC Abs Auto 0.000 0.0 - 0.012 X10*3/uL [facility] 03/14/2025 8:52 PM EDT 03/14/2025 8:57 PM EDT Generic External Data Provider LAB BLOOD ORDERAB LES Final Result Performing Organization Address City/[facility]/ZIP Co de Phone Number [facility] [address] [place] [phone] * Lipase (03/14/2025 8:52 PM EDT) Pathologist [facility] Lipase 36 8 - 78 U/L [facility] 03/14/2025 8:52 PM EDT 03/14/2025 8:57 PM EDT us Generic External Data Provider LAB BLOOD ORDERAB LES Final Result Performing Organization Address [facility]/ZIP Co de Phone Number [facility] [address] [place] [phone] * (ABNORMAL) Comprehensive Metabolic Panel (03/14/2025 8:52 PM EDT) Sodium 136 135 - 145 mmol/L [facility] Potassium 4.0 3.3 - 5.1 mmol/L [facility] Chloride 104 96 - 108 mmol/L [facility] Carbon Dioxide 23 22 - 29 mmol/L [facility] Anion Gap 13 12 - 20 [facility] Urea Nitrogen (BUN) 21(H) 9 - 16 mg/dL [facility] Creatinine, Serum 1.24 0.5 - 1.4 mg/dL [facility] Creatinine Clr Calc Pharmacy 45.2 [facility] Comment:Provided height and weight: 149.86 cm,107.5 kg.eGFR (calculated from the MDRD study equation) and eCrCl(calculated from the Cockcroft-Gault equation) are based ondifferent parameters and may not yield comparable results.If eCrCl result is absurd, please check patient'sheight/weight. Estimated Glomerular Filt Rate 43 [facility] Comment:Chronic Kidney Disea se: Estimated GFR < 60 mL/min/1.82n3Lovtcs Kidney Disease: Estimated GFR < 15 mL/min/1.73m2 Glucose 349(H) 60 - 115 mg/dL [facility] Calcium 9.8 8.4 - 10.2 mg/dL [facility] Bilirubin, Total 0.6 0.0 - 1.0 mg/dL [facility] Aspartate Amino Transferase 27 5 - 31 U/L [facility] Alanine Aminotransferase 35(H) 0 - 31 U/L [facility] Total Protein 7.2 6.5 - 8.0 g/dL [facility] Albumin Level 4.2 3.5 - 5.0 g/dL [facility] Alkaline Phosphatase 121(H) 39 - 117 U/L [facility] 03/14/2025 8:52 PM EDT 03/14/2025 8:57 PM EDT us Generic External Data Provider LAB BLOOD ORDERAB LES Final Result [facility] [address] [place] [phone] * (ABNORMAL) Hemoglobin A1c (02/27/2025 7:59 AM EDT) Hemoglobin A1c 9.1(H) <6.0 % [facility] Comment:Hemoglobin A1C Refer ence Range Adults: 4.8 - 6.0 % Non diabetic: < 6.0 % Goal: < 7.0 %Additional Action Suggested: > 8.0 %Note: Hemoglobin A1c results are invalid for patients with abnormal amounts of HbF. Blood transfusions may impact the HbA1c concentration in the patient sample. Estimated Average Glucose 214 mg/dL [facility] Comment:eAG = Estimated ave rage glucose which is %A1C expressed asaverage glucose, using the formula of the Z7G-MzwvavzDgziown Glucose study (ADAG), Diabetes Care, Vol.31,#8,Feb. 2007 02/27/2025 7:59 AM EDT 02/27/2025 7:59 AM EDT Generic External Data Provider LAB BLOOD ORDERAB LES Final Result Performing Organization Address City/[facility]/ZIP Co de Phone Number [facility] [address] [place] [address] [phone] * (ABNORMAL) Hepatic Function Panel (02/27/2025 7:59 AM EDT) Bilirubin, Total 0.7 0.0 - 1.0 mg/dL [facility] Bilirubin, Direct 0.2 0.0 - 0.5 mg/dL [facility] Aspartate Amino Transferase 30 5 - 31 U/L [facility] Alanine Aminotransferase 36(H) 0 - 31 U/L [facility] Total Protein 7.3 6.5 - 8.0 g/dL [facility] Albumin Level 4.4 3.5 - 5.0 g/dL [facility] Alkaline Phosphatase 118(H) 39 - 117 U/L [facility] 02/27/2025 7:59 AM EDT 02/27/2025 7:59 AM EDT Generic External Data Provider LAB BLOOD ORDERAB LES Final Result Performing Organization Address City/[facility]/ZIP Co de Phone Number [facility] [address] [place] [phone] * BI Mammogram Screening Tomosynthesis Bilateral (01/29/2025 8:15 AM EDT) Anatomical Region Laterality Modality Breast Bilateral Mammography 01/29/2025 8:15 AM EDT Narrative 02/05/2025 5:09 PM EDT [facility] [address] [place] [address] Mammography Report Signed Patient: Karon Nur MR#: [id number] : 1955 Acct:[id number] Age/Sex: 69 / F ADM Date: 01/29/25 Loc: HO.MAMMO Attending Dr: Amina Nieves MD Ordering Physician: Amina Nieves Results: 1Negative Date of Service: 01/29/25 Follow Up: 1 Year From Orig inal Mammogram Procedure(s): MM tomosynthesis screening BI Accession Number(s): [id number] cc: Amina Nieves EXAMINATION: MM SCREENING DIGITAL [...] 02/05/25 1705 DD/ 0815 TD/TT: 01/29/25 0830 Stage Set Up Worker: Procedure Note Donotuseinterpreter, [facility] - [facility] [address] [place], [place] [address] Mammography Report Signed Patient: Ron Nur#: [id number] : 1955cct:[id number] Age/Sex: 69 / FADM Date: 01/29/25 Loc: HO.MAMMO Attending Dr: Amina Nieves MD Ordering Physician: Nicole Nievesults: 1Negative Date of Service: 01/29/25Follow Up: 1 Year From Orig inal Mammogram Procedure(s): MM tomosynthesis screening BI Accession Number(s): [id number] cc: Amina Nieves EXAMINATION: MM SCREENING DIGITAL [...] Conklin MD in OV> 02/05/25 1705 DD/ 4 TD/TT: 01/29/25829 Stage Set Up Worker: us Amina Nieves MD IMG BI PROCEDURES Final Result * (ABNORMAL) Lipid Panel with Reflex to Direct LDL (10/10/2024 7:54 AM EDT) Triglycerides 248(H) <150 mg/dL [facility] Comment:Desirable Triglyceri de: less than 150 mg/dLBorderline High Triglyceride 150-199 mg/dLHigh Triglyceride: 200-499 mg/dLVery High Triglyceride: greater than or equal to 5OO mg/dL Cholesterol 207(H) <200 mg/dL [facility] Comment:Desirable Cholestero l: less than 200 mg/dLBorderline High Cholesterol: 200-239 mg/dLHigh Cholesterol: greater than 239 mg/dL LDL Cholesterol Calculated 116(H) <100 mg/dL [facility] Comment:Desirable LDL: less than 100 mg/dLNear Optimal/Above Optimal LDL: 110- 129 mg/dLBorderline High LDL: 130-159 mg/dLHigh LDL: 160-189 mg/dLVery High LDL: greater than or equal to 190 mg/dL HDL Cholesterol 42 >40 mg/dL [facility] Comment:Desirable HDL: great er than 40 mg/dL Note: This HDL assay may give artificially low results in patients with liver disease. 10/10/2024 7:54 AM EDT 10/10/2024 7:54 AM EDT us Generic External Data Provider LAB BLOOD ORDERAB LES Final Result [facility] [address] [place] [phone] * Albumin, Random Urine W/Creatinine (05/25/2024 9:46 AM EST) Creatinine, Urine 85.32 mg/dL [facility] Microalbumin Urine 23.0 mg/L [facility] Microalbum Creatinine Ratio Ur 26.9 <30 ug/mg cr [facility] Comment:Albumin/Creatinine R atio Reference Ranges: Normal: < 30 ug/mg creatinine Microalbuminuria: 30 - 300 ug/mg creatinineClinical Albuminuria: > 300 ug/mg creatinine Urine (Urine, Random) 05/25/2024 9:46 AM EST 05/25/2024 11:28 AM EST Amina Nieves MD LAB URINE ORDERABLES Final Res ult Performing Organization Address [facility] Co de Phone Number [facility] [address] [place] [phone] * Hepatitis C Antibody with Reflex to HCV, RNA, Quantitative, Real-Time PCR (05/25/2024 9:46 AM EST) Hepatitis C Antibody Nonreactive Nonreactive [facility] Comment:Antibodies to HCV no t detected; does not exclude early acuteHCV infection. Blood Venous blood specimen / Unknown 05/25/2024 9:46 AM EST 05/25/2024 10:53 AM EST Amina Nieves MD LAB BLOOD ORDERABLES Final Res ult Performing Organization Address [facility] de Phone Number [facility] [address] [place] [phone] * (ABNORMAL) Hm Colonoscopy (10/18/2019) Colonoscopy Abnormal(A ) Normal Historical Provider HEALTH MAINTENANCE Edited Result - Final from Last 3 Months or Most Recently Relevant to Health Maintenance Insurance [address] [place] [id number] [facility] C[employer] OPT[employer] (HMO D-SNP) [place] [phone] * Guarantor: Karon Nur Account Type Relation to Patient Date of Phone Billing Address Personal/Family Self [address] [place] [address] * Guarantor: Karon Nur Account Type Relation to Patient Date of Phone Billing Address Personal/Family Self [address] [place] [address] * Guarantor: Karon Nur Account Type Relation to Patient Date of Phone Billing Address Personal/Family Self [address] [facility] [address] [place] [address] Care Teams Flatwork Presser Relationship Specialty Start Date End Date Amina Nieves MD [address] [place] [phone] PCP - General Family Medicine 04/07/21
--- OUTSIDE RECORDS SUMMARY | 2025-03-23 11:11 | XMS_ITS | Patient Health Record ---
Author Organization [facility] Address [address] [place] [place] [address] Care Team Providers Care Cd Mixer Helper Name Role Phone Carmen Santiago Primary Care Provider Unavailab Risa Castellanos Unavailable [phone] Nyla Welsh Unavailable [phone] Allergies Allergen (clinical drug ingredient) Drug/Non Drug [...] Problem Status W/U Status Risk Notes Problem Polyneuropathy due to type 2 diabetes mellitus (250397471) Type 2 diabetes mellitus with diabetic polyneuropathy (E11.42) Active confirmed Vital Signs Blood pressure diastolic 70 mm Hg 03/13/2025 Height 4ft 11in in 03/13/2025 Blood pressure systolic 160 mm Hg 03/13/2025 Weight 235 lbs 03/13/2025 BMI 47.46 kg/m2 03/13/2025 Encounters Encounter Location Date Provider Diagnosis [address] [address] 04/11/2024 Risa Chen Type 2 diabetes mellitus with diabetic polyneuropathy E11.42 and Xerosis of skin L85.[address] [address] 06/30/2024 Risa Chen Type 2 diabetes mellitus with diabetic polyneuropathy E11.42 and Xerosis of skin L85.[address] [address] 09/13/2024 Risa Chen Type 2 diabetes mellitus with diabetic polyneuropathy E11.42 ; Xerosis of skin L85.3 ; Other hammer toe(s) (acquired), right foot M20.41 and Other hammer toe(s) (acquired), left foot M20.[address] [address] 12/07/2024 Nyla Welsh Type 2 diabetes mellitus with diabetic polyneuropathy E11.[address] [address] 03/13/2025 Risa Chen Type 2 diabetes mellitus [...] Details Provider Name:Risa singh, 05/29/2025 11:00:00 AM, [address] [place] [address], [phone], Insurance Providers Payer Name Payer Address Payer Phone Subscriber Number Group Number Insured Name Patient Relationship to Insured Coverage Start Date Coverage End Date [facility] [employer] Claims [address] [place] [address] [id number] Karon Howard Self - patient is the insured Medical (General) History Medical History History ICD Code Arthritis asthma type I diabetes Headaches High blood pressure Cataracts Joint implants/screws Cholesterol Surgical History Surgery Date(Month/Year) cataract removal 06/2024
--- OUTSIDE RECORDS SUMMARY | 2025-03-23 11:11 | XMS_ITS | Patient Health Record ---
Demographics Address [address] [facility] [address] [place] [address] Mobile Preferred Language Unknown Marital Status Unknown Evangelical Affiliation Unknown Race Ethnic Group or Author Organization [facility] Address [address] [place] [address] Care Team Providers Care Labourers Name Role Phone Tyson Cam NP Primary Care Provider Celso Zepeda Unavailable [phone] Allergies Allergen (clinical drug ingredient) Drug/Non Drug [...] Problem Status W/U Status Risk Notes Problem [id number] Encounter for screening for malignant neoplasm of colon (Z12.11) Active confirmed Problem [id number] History of adenomatous polyp of colon (Z86.010) Active confirmed Problem 65617452 Irritable bowel syndrome without diarrhea (K58.9) Active confirmed Problem 728312708 Abdominal pain, left upper quadrant (R10.12) Active confirmed Plan Of Treatment Future Test Test Name Order Date COLONOSCOPY 05/23/2013 COLONOSCOPY 08/03/2019 Insurance Providers Payer Name Payer Address Payer Phone Subscriber Number Group Number Insured Name Patient Relationship to Insured Coverage Start Date Coverage End Date [facility] [address] [place] [phone] [id number] BELKIS SAMPSON Self - patient is the insured Medical (General) History Medical History History ICD Code Migraines Asthma Hypertension Back pain DM Denies [place],CVA,renal disease GERD--EGD 09/2012 with mild g astritis and H.pylori--the H. pylori has not been treated Neg. abd U/S in 09/2012 Colonoscopy 2004 was negativ e; Colonoscopy in 07/2013-1 tubular adenoma removed Hyperlipidemia IBS--chronic LUQ discomfort Kidney stones Surgical History Surgery Date(Month/Year) tubal ligation eye surgery left knee replacement--Dr. Craft 04/30 14
--- OUTSIDE RECORDS SUMMARY | 2025-03-23 11:11 | XMS_ITS | Encounter Summary ---
Author Organization [employer] Address [address] [place] [address] [address] [place] [address] Care Team Providers Care Kiln Burner Name Role Phone Amina Nieves MD Primary Care Provider [phone] Reason for Visit * Reason Comments Med Refill Encounter Details Date Type Department Care Team ([facility] st Contact Info) Description 03/19/2025 Refill [facility] [address] [place], [place] [phone] Amina Nieves MD [address] [place], [place] [phone] Social History Tobacco Use Types Packs/Day Years [...] documented as of this encounter Care Teams Kiln Burner Relationship Specialty Start Date End Date Amina Nieves MD [address] [place] [address] PCP - General Family Medicine 04/07/21 documented as of this encounter
--- OUTSIDE RECORDS SUMMARY | 2025-03-23 11:12 | XMS_ITS | Encounter Summary ---
Author Organization [email or web address] Address [address] [place] [address] [address] [place] [address] Care Team Providers Care Terrazzo Finisher Name Role Phone Amina Nieves MD Primary Care Provider [phone] Encounter Details Date Type Department Care Team (Late st Contact Info) Description 10/27/2022 Orders Only [facility] [address] [place], [place] [phone] Amina Nieves MD [address] [place], [place] [phone] Vaginal bleeding (Primary Dx); Endometrial thickening on [...] as of this encounter Care Teams Terrazzo Finisher Relationship Specialty Start Date End Date Amina Nieves MD [address] [place] [address] PCP - General Family Medicine 04/07/21 documented as of this encounter
--- OUTSIDE RECORDS SUMMARY | 2025-03-23 11:12 | XMS_ITS | Encounter Summary ---
Author Organization [employer] Address [address] [place] [address] [address] [place] [address] Care Team Providers Care Train Controller Name Role Phone Amina Nieves MD Primary Care Provider [phone] Reason for Visit * Reason Comments Med Refill Encounter Details Date Type Department Care Team ([facility] st Contact Info) Description 01/23/[address] [facility] [address] [place] [address] Amnia Nieves MD [address] [place] [address] Social History Tobacco Use Types Packs/Day Years [...] documented as of this encounter Care Teams Train Controller Relationship Specialty Start Date End Date Amina Nieves MD [address] [place] [address] PCP - General Family Medicine 04/07/21 documented as of this encounter
--- OUTSIDE RECORDS SUMMARY | 2025-03-23 11:12 | XMS_ITS | Encounter Summary ---
Author Organization [employer] Address [address] [place] [address] [address] [place] [address] Care Team Providers Care Truck Driver Heavy Name Role Phone Amina Nieves MD Primary Care Provider [phone] Reason for Visit * Reason Comments Med Refill Encounter Details Date Type Department Care Team ([facility] st Contact Info) Description 06/01/2024 Refill [facility] [address] [place], [place] [phone] Jhoana Worrell DO [address] [place], [place] [phone] Social History Tobacco Use Types Packs/Day Years [...] documented as of this encounter Care Teams Truck Driver Heavy Relationship Specialty Start Date End Date Amina Nieves MD [address] [place] [phone] PCP - General Family Medicine 04/07/21 documented as of this encounter
--- OUTSIDE RECORDS SUMMARY | 2025-03-23 11:12 | XMS_ITS | Encounter Summary ---
Author Organization [employer] Address [address] [place] [address] [address] [place] [address] Care Team Providers Care Fuel Assembler Name Role Phone Amina Nieves MD Primary Care Provider [phone] Reason for Visit * Reason Comments Med Refill Encounter Details Date Type Department Care Team ([facility] st Contact Info) Description 05/07/2023 Refill [facility] [address] [place], [place] [phone] Amina Nieves MD [address] [place], [place] [phone] Rash Social History Tobacco Use Types Packs/Day [...] documented as of this encounter Care Teams Fuel Assembler Relationship Specialty Start Date End Date Amina Nieves MD [address] [place] [phone] PCP - General Family Medicine 04/07/21 documented as of this encounter
[2025-03-23 11:23] LABS: Reticulocytes Absolute 0.100 X10*6/uL (0.026-0.095)
== END 2025-03-23 09:54 | disposition home or self-care (01) ==
LOC: HO.HHCL 09:53
PROVIDERS: PCP General Practice; Visit Provider General Practice
DX: D50.9 Iron deficiency anemia, unspecified (principal)
CPT/HCPCS: 36415; 85045

== ENCOUNTER 2025-03-26 12:24 | Outpatient (AMB) | payer OTHER, SELFPAY ==
--- NOTE | 2025-03-26 12:26 | A.OFFVIS_ITS ---
Intake Visit Reasons: Kidney stone with moderate hydro Intake Note: patient presents today for: k.stones/US urology medications: tamsulosin, vit b6, vit b12 blood thinners: aspirin CT done: 03/15/25 Nut Packer Required: Yes Nut Packer Services: Nut Packer Present Accompanied by: Son Allergies Penicillins (PENICILLINS) Allergy (Intermediate, Verified 03/26/25 13:15) HIVES fluticasone (From Advair Diskus) Allergy (Mild, Verified 03/26/25 13:15) Unknown potassium Allergy (Mild, Verified 03/26/25 13:15) Unknown salmeterol (From Advair Diskus) Allergy (Mild, Verified 03/26/25 13:15) Unknown Medication List - Last Reconciled 03/26/25 by DALI Graham-FABIOLA amlodipine 5 mg PO DAILY aspirin (Adult Low Dose Aspirin) 81 mg PO DAILY bisacodyl (Dulcolax (bisacodyl)) 20 mg (4 x 5 mg) PO ONCE 1 day blood sugar diagnostic (FreeStyle Lite Strips) As directed calcium carbonate-vitamin D3 500 mg-5 mcg (200 unit) (Oyster Shell Calcium- Vitamin D3) 1 tab PO DAILY carvedilol 12.5 mg PO BID cholecalciferol (vitamin D3) 50 mcg PO DAILY cyanocobalamin (vitamin B-12) ER (Vitamin B-12 ER) 1,000 mcg PO QAM dapagliflozin propanediol (Farxiga) 10 mg PO DAILY furosemide 20 mg PO DAILY gabapentin 100 mg PO BID ibuprofen 400 mg PO Q6H PRN irbesartan 300 mg PO DAILY isosorbide mononitrate ER 30 mg PO DAILY lancets (TRUEplus Lancets) As directed metformin ER 1,000 mg PO montelukast 10 mg PO DAILY ondansetron 4 mg PO TID PRN 5 days oxycodone 5 mg PO Q8H PRN polyethylene glycol 3350 (Miralax) 238 grams PO ONCE pyridoxine (vitamin B6) 100 mg PO DAILY 90 days rosuvastatin 10 mg PO DAILY tamsulosin (Flomax) 0.4 mg PO DAILY HPI Comments Details: Karon is a pleasant 69 year old Greek speaking patient of Dr. Nieves who was accompanied by her son Genaro at today's office visit. She has a past medical history of irritable bowel syndrome, TERENCE, obesity, GERD, nephrolithiasis, osteoarthritis, non alcoholic fatty liver disease, diverticulosis, and type 2 DM. She presents to the office today for a follow up of her nephrolthiaisis. In discussion with the patient today she reports having seeked emergency room care earlier this month for right-sided flank pain she had been experiencing at which time a CT of the abdomen was ordered and performed. These results were reviewed and communicated with the patient today. 03/15/25 7 mm proximal right ureteral stone with moderate hydronephrosis. Small bilateral nonobstructing renal stones. When asked she continues to experience right-sided flank pain. She reports she is straining her urine and has not passed and he debris and or calculi. In office urinalysis results reviewed with the patient today 3+ microscopic hematuria. We did discussed further interventions to include u reteroscopy verses ESWL verses right-sided ureteral stent placement with procedure to follow. Risks and benefits of these interventions were discussed. She reports having completed Flomax as prescribed. She was also given a prescription for 400 mg of ibuprofen that she had been taking up until the last 2-3 days. She denies urinary urgency, urinary frequency, incontinence, nocturia, hematuria, dysuria, foul smelling urine, changes to urinary stream, fever, and or chills.. We discussed importance of hydration in relation to nephrolithiasis as well as overall health and well being. All questions were answered. She otherwise offers no issues or concerns at this time [facility] Medical History Endometrial cancer Renal calculi Irritable bowel syndrome Microscopic hematuria Eczema GERD (gastroesophageal reflux disease) Bursitis of heel Achilles tendinitis Juvenile xanthogranuloma Pilar cysts Hypercholesterolemia Kidney stones Osteoarthritis of right knee Osteoarthritis of left knee Hypertension Diabetes mellitus Surgical History History of surgery Hx of total knee arthroplasty (~2017) History of tubal ligation Social History Household Members: None Housing: Apartment Alcohol intake: never Patient Tobacco Use Status: Never used Tobacco Current occupational status: disabled Female Reproductive History Menstrual Age of Menarche: 13 Review of Systems Const Reports as per HPI Eyes Reports no additional complaints ENT Reports no additional complaints Card Reports no additional complaints Resp Reports no additional complaints GI Reports no additional complaints Reports as per [facility] Musc Reports no additional complaints Neuro Reports no additional complaints Psych Reports no additional complaints Endo Reports as per [facility] Óscar/Lymph Reports no additional complaints Aller/Immun Reports no additional complaints Physical Exam Const General: cooperative, healthy appearing, comfortable, no acute distress, well developed, alert and awake Nutritional Appearance: overweight Orientation/consciousness: patient oriented x3 Limitations: ambulation with cane HEENT Head: Yes normal to inspection, Yes normocephalic and Yes atraumatic Ears: hearing grossly normal bilaterally Eyes General: appearance normal, both eyes and all related structures Neck Neck: Yes normal visual inspection and Yes trachea midline Chest Chest palpation & inspection: normal inspection of the chest Resp Effort & Inspection: normal respiratory effort and able to speak in complete sentences Cardio Rate: regular rate Skin General skin exam: no rashes or lesions noted Neuro General: patient oriented x3 Extrem General: Yes normal to inspection Psych Appearance: grossly normal and well kempt Mental Status: mental status grossly normal Speech and movement: Normal speech and movement present and Clear speech present Affect: normal affect Attitude: cooperative Thought process: Normal thought process present Thought content: Normal thought content present Insight: Fair insight present (Psych) Judgement: Fair judgement present (Psych) Results AMB Urinalysis, Automated UA Leukoctes 15 Cindy/uL Last Edit by MEMO Moreno on 03/26/25 13:16 UA Nitrite Last Edit by MEMO Moreno on 03/26/25 13:16 UA Urobilinogen 0.2 mg/dL Last Edit by MEMO Moreno on 03/26/25 13:1 6 UA Protein 15 mg/dL Last Edit by MEMO Moreno on 03/26/25 13:16 UA pH 6.0 Last Edit by MEMO Moreno on 03/26/25 13:16 UA Blood 200 Bridger/uL Last Edit by MEMO Moreno on 03/26/25 13:16 UA Specific Rentz 1.020 Last Edit by MEMO Moreno on 03/26/25 13: 16 UA Ketone Last Edit by MEMO Moreno on 03/26/25 13:16 UA Bilirubin 0 mg/dL Last Edit by MEMO Moreno on 03/26/25 13:16 UA Glucose 0 mg/dL Last Edit by MEMO Moreno on 03/26/25 13:16 Results Reviewed Results Reviewed: Laboratory Last Values Urine pH (Auto) 6.0 03/26/25 13:15 Specific Rentz (Auto) 1.020 03/26/25 13:15 Urine Protein (Auto) 15 mg/dL 03/26/25 13:15 Glucose (UA)(Auto) 0 mg/dL 03/26/25 13:15 Urine Blood (Auto) 200 Bridger/uL 03/26/25 13:15 Urine Bilirubin (Auto) 0 mg/dL 03/26/25 13:15 Urine Urobilinogen (Auto) 0.2 mg/dL 03/26/25 13:15 Leukocyte Esterase (Auto) 15 Cindy/uL 03/26/25 13:15 Date of Service: 03/15/25 Procedure(s): CT abdomen pelvis wo IV con Findings: There is mild bibasilar atelectasis. There is mosaic attenuation in the lung bases consistent with air trapping. Partially visualized mild left atrial enlargement. There is a small pericardial effusion. There is mild hepatomegaly. There is cholelithiasis. Gallbladder appears otherwise normal. The pancreas, spleen, and adrenal glands are unremarkable. There is moderate right hydronephrosis. There is a 7 mm stone in the proximal right ureter. There are a couple small bilateral nonobstructing renal stones measuring up to 3 mm in the left kidney. The appendix is normal. The remainder of the gastrointestinal tract is unremarkable. There is a okagl-sc-xyuyjhus sized fat containing umbilical hernia. There are no enlarged lymph nodes. The aorta is normal in diameter. Patient is status post hysterectomy. The bladder is unremarkable. There are degenerative changes in the lumbar spine. There is no acute fracture or suspicious lytic or sclerotic lesion. IMPRESSION: 1. 7 mm proximal right ureteral stone with moderate hydronephrosis. 2. Small bilateral nonobstructing renal stones. 3. Cholelithiasis. 4. Small pericardial effusion. 5. Additional chronic findings as above. Assessment & Plan Assessment & Plan (1) Renal calculi: Code(s): N20.0 - Calculus of kidney Category: Medical (2) Hydronephrosis with obstructing calculus: Code(s): N13.2 - Hydronephrosis with renal and ureteral calculous obstruction Category: Medical Plan: Risks, benefits and alternatives to therapy were discussed. These include but are not limited to infection, bleeding, damage to local organs and tissues, need for further interventions. ? Anesthetic risks regarding cardiac arrhythmia, blood clots, and potential mortality were discussed. The patient understands the typical recovery time and the outpatient nature of the procedure. After consideration of these risks the patient gives full informed consent and they wish to move ahead with the procedure. Plan In office urinalysis results reviewed with the patient today; as noted above. Recent CT results reviewed with the patient today; as noted above. All questions were answered. We discussed at length further interventions to include right-sided stent placement verses as well versus ureteroscopy verses ESWL; risks and benefits of these interventions were discussed All questions were answered Will discontinue ibuprofen Prescription provided for p.r.n. tramadol Will schedule for a cystoscopy with right sided ureteral stent placement Follow-up per doctor's orders; or sooner with any issues, concerns, and or questions. Orders: Orders AMB Urinalysis Automated Today Z13.9 - Encounter for screening, unspecified Medications: New tramadol P.r.n. for pain 50 mg PO Q8H PRN 15 tabs 0RF pain 5 days Patient Instructions: The patient had an opportunity to ask questions regarding the treatment plan. All questions were answered. Physical exam, labs, and imaging were discussed and reviewed in detail. As well as risks, benefits, and discussion of treatment choices. No major barriers to understanding were identified. The patient expressed understanding and agreement with the above treatment plan. The patient was made aware they should contact our office by phone for worsening of their current condition, the appearance of new symptoms, or with any questions or concerns. Compliance is encouraged with any medications and follow up testing that is ordered. It is a privilege to be allowed the opportunity to participate in? your urological care.? Again, if you have any questions or concerns If you have any questions or concerns please do not hesitate to contact me. The office is [phone]. This note is constructed using voice recognition software. While every effort has been made to ensure accuracy studio director errors may have been included. Yours sincerely, MOSES Graham Coding Level of Care Code Est Pt Level 4 (55485) Complex EM visit Add On G2211 Diagnoses Renal calculi N20.0 Hydronephrosis with obstructing calculus N13.2
== END 2025-03-26 13:17 | disposition home or self-care (01) ==
LOC: HO.HUSH 12:25
PROVIDERS: PCP General Practice; Visit Provider Nurse Practitioner Family
DX: N20.0 Calculus of kidney (principal); N13.2 Hydronephrosis with renal and ureteral calculous obstruction; Z13.9 Encounter for screening, unspecified
CPT/HCPCS: 99214; G2211

== ENCOUNTER → 2025-03-26 12:24 | Outpatient (BNVA) | payer OTHER, SELFPAY | PROVIDERS: PCP General Practice; Visit Provider Nurse Practitioner Family | DX: N13.2 Hydronephrosis with renal and ureteral calculous obstruction (principal) | CPT/HCPCS: 81003; 99212 ==

== ENCOUNTER 2025-04-02 11:57 | Day surgery (SDC) | payer OTHER, SELFPAY ==
--- OUTSIDE RECORDS SUMMARY | 2024-11-28 06:00 | XMS_ITS ---
Author Organization [facility] Address [address] [place] [address] Care Team Providers Care Malted Milk Masher Name Role Phone Carmen Santiago Primary Care Provider Unavailab Risa Castellanos Unavailable [phone] Yancey Encounters Encounter Location Date Provider Diagnosis [facility] [address] [place] [address] 11/28/2024 Risa Chen Plan Of Treatment Next Appt Details Provider Name:Risa singh, 05/29/2025 11:00:00 AM, [address] [place], [address], Progress Notes * Cheri ARELLANOsDOB: [birth year] (69 yo F)Acc No.[id number]:11/28/2024 Progress Note Patient: Supriya QUIROGA Karon Provider: Chuck Chen DPM :1955 A ge:69 Y S ex:Female Date:11/28/2024 Address:[address] [place] [address] [address], [place], [place] Pcp:Carmen Santiago Subjective: * Chief Complaints: * [address] Yancey. * Medical History: Objective: * Vitals: Assessment: Plan: * Treatment: * Images: * The named appointment provid er may or may not be the originator of this progress note, and it is not deemed complete until electronically signed by the appointment provider. Sign off status: Pending * Provider: Chuck Chen, DPGermaine Date: 0 11/28/2024 Generated for Cheryl bundy/Rashard/Pedro on: 0 03/30/2025 12:21 PM EDT
--- OUTSIDE RECORDS SUMMARY | 2025-03-30 12:21 | XMS_ITS | Clinical Summary ---
Demographics Address [address] [place] [address] [address] [place] [address] Work Phone Mobile Phone Home Phone Preferred Language es Marital Status Single Restoration Affiliation Unknown Race Other Race Ethnic Group Unknown Author Organization [employer] Address [address] [place] [address] [address] [place] [address] Care Team Providers Care Financial Sales Representative Name Role Phone Amina Nieves MD Primary Care Provider [phone] Allergies Active Allergy Reactions Criticality Noted Date Comments Amoxicillin Unknown 05/27/2022 Penicillin G 05/27/2022 Other reaction(s): Unknown Other reaction(s): Unknown Penicillin V 08/19/2010 Other reaction(s): unspecified Penicillins 03/12/2023 Other reaction(s): hives Medications Skin Protectants, Misc. (eucerin) cream Apply 1 application topically in the morning, at noon, in the evening, and at bedtime. 2020 Active isosorbide mononitrate ER (Imdur) 30 MG 24 hr tablet Take 30 mg by mouth in the morning. 2021 Active Ventolin HFA 108 (90 Base) MCG/ACT inhaler Inhale 2 puffs Every 4-6 hours as needed for wheezing or shortness of breath. 18 g 2 2022 Active Neomycin-Polymyxi n-HC 1 % solution Administer 4 drops into affected ear(s) 4 times daily. 10 mL 2022 Active furosemide (Lasix) 20 MG tablet Take 1 tablet by mouth Once per day. 2023 Active TRUEplus Lancets 33G misc TEST BLOOD SUGAR TWICE DAILY 100 each 11 2023 Active FREESTYLE LITE test strip TEST BLOOD SUGAR TWICE DAILY 100 strip 11 2023 Active Farxiga 10 MGIndications:Typ e 2 diabetes mellitus with diabetic neuropathy, without long-term current use of insulin ([facility]) TAKE 1 TABLET BY MOUTH EVERY MORNING 90 tablet 3 2023 Active lidocaine (Lidoderm) 5 % patchIndications: Neck pain, musculoskeletal Apply 1 patch topically Once per day. Remove & discard patch within 12 hours or as directed by . 60 patch 2 2024 Active Aspirin EC Adult Low Dose 81 MG EC tabletIndications :Type 2 diabetes mellitus with diabetic neuropathy, unspecified ([facility]) TAKE 1 TABLET BY MOUTH EVERY MORNING 90 tablet 3 2024 Active montelukast (Singulair) 10 MG tabletIndications :Allergic rhinitis, unspecified seasonality, unspecified trigger TAKE 1 TABLET BY MOUTH EVERY MORNING FOR ALLERGIES 90 tablet 3 2024 Active Blood Glucose Monitoring Suppl (CBLPath Lite) w/Device kitIndications:Ty pe 2 diabetes mellitus with diabetic neuropathy, without long-term current use of insulin ([facility]) Use to test blood sugar two times daily 1 kit 2024 Active meclizine (Antivert) 25 MG tabletIndications :Dizziness TAKE 1 TABLET BY MOUTH THREE TIMES DAILY NEEDED FOR DIZZINESS 60 tablet 3 2024 Active loratadine (Claritin) 10 MG tablet Take 1 tablet (10 mg) by mouth Once per day. 90 tablet 3 10/20 Active prednisoLONE acetate (Pred-Forte) 1 % ophthalmic suspension 2024 Active D3 Super Strength 50 MCG [...] WITH MEALS 360 tablet 3 2024 Active fluticasone (Flonase) 50 MCG/ACT [...] EVERY MORNING 90 tablet 3 2024 Active Calcium Carb-Cholecalcife rol (Oyster Shell Calcium w/D) 500-5 MG-MCG tablet TAKE 1 TABLET BY MOUTH TWICE DAILY IN THE MORNING AND IN THE EVENING 180 tablet 3 2024 Active tamsulosin (Flomax) 0.4 MG 24 hr capsule Take 1 capsule (0.4 mg) by mouth Once per day. 7 capsule 2024 Active Bisacodyl EC 5 MG EC tabletIndications :Irritable bowel syndrome with constipation TAKE 4 TABLETS BY MOUTH ONCE AT NOON THE DAY BEFORE COLONOSCOPY 2024 Active ondansetron ODT (Zofran-ODT) 4 MG disintegrating tabletIndications :Irritable bowel syndrome with constipation DISSOLVE 1 TABLET ON TONGUE THREE TIMES DAILY NEEDED FOR NAUSEA AND VOMITING 2024 Active polyethylene glycol, PEG, 3350 (Glycolax) 17 GM/SCOOP powderIndications :Irritable bowel syndrome with constipation MIX DIRECTED AND TAKE DIRECTED BY [facility] 2024 Active ferrous gluconate (Fergon) 324 (38 Fe) MG tabletIndications :Iron deficiency anemia, unspecified iron deficiency anemia type Take 1 pill every Wednesday, Wednesday, and Wednesday. Take with a full glass of water or Vit C containing juice, and ideally 1 hour before a meal or 2 hours after a meal 36 tablet 09/12/ 2025 Active Tirzepatide (Mounjaro) 2.5 MG/0.5ML solution auto-injectorIndi cations:Type 2 diabetes mellitus with diabetic neuropathy, without long-term current use of insulin ([facility]) Inject 2.5 mg under the skin 1 (one) time per week. 2 mL 3 2024 Active albuterol (2.5 MG/3ML) 0.083% nebulizer solutionIndicatio ns:Mild intermittent asthma without complication Take 3 mL (2.5 mg) by nebulization if needed in the morning, at noon, and at bedtime for wheezing. 75 mL 03/23 Active fluticasone-salme terol (Advair) 45-21 MCG/ACT inhalerIndication s:Mild intermittent asthma without complication Inhale 2 puffs in the morning and at bedtime. Rinse mouth with water after use to reduce aftertaste and incidence of candidiasis. Do not swallow. 12 g 11 03/23 Active clobetasol (Temovate) 0.05 % ointment APPLY TOPICALLY TWICE DAILY 30 g 3 2024 Active 7 Day Vaginal 2 % vaginal creamIndications: Vaginal itching INSERT ONE APPLICATORFUL VAGINALLY AT BEDTIME FOR 7 DAYS. 45 g 2024 Active simethicone (Mylicon) 125 MG chewable tablet Chew 125 mg in the morning, at noon, in the evening, and at bedtime. 03/23 Discontinued( Therapy completed) omeprazole (PriLOSEC) [address] capsule Take 1 capsule by mouth at bed time. 03/23 Discontinued( Therapy completed) Menthol-Methyl Salicylate (Muscle Rub) 10-15 % creamIndications: Neck pain Apply 1 application topically if needed in the morning and at bedtime (pain). 85 g 3 03/23 Discontinued( Therapy completed) acetaminophen (Tylenol) 325 MG tablet ANGELA 3 TABLETAS POR LA BOCA CADA 6 HORAS 03/19 Discontinued( Reorder (will not trigger notification to Pharmacy)) Senna-Time 8.6 MG tablet ANGELA 1 TABLETA POR LA BOCA CADA MÓNICA A LA HORA DE DORMIR 03/19 Discontinued( Therapy completed) Yjwewtk-Ezwtusm-I ethyl Elvin (Salonpas) 3.1-6-10 % patch APPLY 1 TO 2 PATCHES TOPICALLY TO SKIN, LEAVE ON FOR 12 HOURS AND OFF FOR 12 HOURS DIRECTED NEEDED FOR PAIN 60 patch 2 03/23 Discontinued( Therapy completed) albuterol (2.5 MG/3ML) 0.083% nebulizer solution Take 3 mL (2.5 mg) by nebulization if needed in the morning, at noon, and at bedtime for wheezing. 75 mL 11 03/23 Discontinued( Therapy completed) acetic acid-hydrocortiso ne (Vosol-HC) otic solution PLACE 5 DROPS INTO THE AFFECTED EAR(S) EVERY DAY 03/23 Discontinued( Therapy completed) Calcium Carb-Cholecalcife rol (Oyster Shell Calcium w/D) 500-5 MG-MCG tablet TAKE 1 TABLET BY MOUTH TWICE DAILY IN THE MORNING AND IN THE EVENING 180 tablet 3 03/21 Discontinued Ketotifen Fumarate (Eye Itch Relief) 0.035 % solutionIndicatio ns:Allergy, subsequent encounter Administer 1 drop into both eyes 2 times daily. 10 mL 1 03/23 Discontinued( Therapy completed) cyclobenzaprine (Flexeril) 5 MG tabletIndications :Leg cramps TAKE 1 TABLET BY MOUTH AT BEDTIME NEEDED FOR CRAMPS 30 tablet 2 03/23 Discontinued( Therapy completed) ofloxacin (Ocuflox) 0.3 % ophthalmic solution 03/23 Discontinued( Therapy completed) clobetasol (Temovate) 0.05 % ointment Apply topically 2 times daily. 30 g 3 03/26 Discontinued miconazole (Micotin) 2 % vaginal creamIndications: Vaginal itching Insert 1 applicator into the vagina at bedtime for 7 days. 45 g 03/30 Discontinued Nirmatrelvir&Justin navir 300/100 (Paxlovid, 300/100,) 20 x 150 MG & 10 x 100MG tablet therapy pack Take 300 mg by mouth 2 times daily. Take 3 tablets 2x/day for 5 days 30 each 03/23 Discontinued( Therapy completed) Nyamyc 701158 UNIT/GM powderIndications :Skin candidiasis APPLY TOPICALLY TO AFFECTED AREA(S) TWICE DAILY ON AFFECTED AREA(S) DIRECTED UNDER A ABDOMEN AND BETWEEN de los THIGHS 120 g 2 03/23 Discontinued( Therapy completed) Arnuity Ellipta 200 MCG/ACT inhaler INHALE 1 PUFF BY MOUTH EVERY DAY AT THE SAME TIME RINSE MOUTH AFTER USING 30 each 3 03/23 Discontinued( Side effects) rosuvastatin (Crestor) 10 MG tablet TAKE 1 TABLET BY MOUTH EVERY EVENING 90 tablet 3 03/23 Discontinued( Dose adjustment) senna-docusate sodium (Senokot-S) 8.6-50 MG tabletIndications :Drug-induced constipation Take 1 tablet by mouth Once per day for 10 days. 1 tablet daily as needed for constipation from medications, instructions in armenian 10 tablet 03/29 acetaminophen (Tylenol) 325 MG tablet Take 2 tablets (650 mg) by mouth every 8 (eight) hours if needed for mild pain for up to 7 days. 30 tablet 03/26 tamsulosin (Flomax) 0.4 MG 24 hr capsule Take 1 capsule (0.4 mg) by mouth Once per day. 7 capsule 03/23 Discontinued( Therapy completed) oxyCODONE (Roxicodone) 5 MG immediate release tablet Take 1 tablet by mouth every 8 (eight) hours if needed for pain. 03/23 Discontinued( Therapy completed) Active Problems Problem Noted Date Diagnosed Date Iron deficiency anemia 03/23/2025 Right kidney stone 03/19/2025 Assessment & Plan (03/19/2025 11:35 AM EDT): Low back pain 03/19/2025 Assessment & Plan (03/19/2025 11:35 AM EDT): Orders: POCT urinalysis dipstick manually resulted Abdominal pain, left upper quadrant 01/26/2025 Encounter for screening for malignant neoplasm o f colon 01/26/2025 History of adenomatous polyp of colon 01/26/2025 Pre-op exam 10/11/2024 Localized osteoarthritis of right knee Assessment & [...] with Dr. Ying 01/2023 - referred to [facility] by Dr. Ying with Dr. Rodriguez at [facility] panel edge painter Oncology on 01/14/2023 at 10:00. -CT scan of abdomen and pelvis and CA [address] Ying 01/2023 Primary localized osteoarthrosis of ankle and fo ot 06/22/2022 Polyneuropathy due to type 2 diabetes mellitus 1 08/23/2021 Assessment & Plan (12/23/2023 2:33 PM EDT): Continue Gabapentin 100mg BID Continue A1C 7.0 goal Has seen [facility] Assessment & Plan (06/22/2022 10:35 AM EST): Continue Gabapentin 100mg BID Continue A1C 7.0 goal Has seen [facility] Acquired hammer toe of left foot [...] GERD (gastroesophageal reflux disease) 5 Hypercholesterolemia 05/06/2015 Irritable bowel syndrome with constipation 05/06 Mild intermittent asthma 05/06/2015 Diabetes 05/06/2015 Assessment [...] anxiety related eating Continue annual dental follow-up 04/2024 no DM retinopathy Foot exam R [...] anxiety related eating Continue annual dental follow-up 09/2022 no DM retinopathy Foot exam R foot with loss of protective sensation in two places, podiatry referral placed Assessment & Plan (06/20/2023 5:00 PM EST): A1C 8.7 Recommend Trulicity for weight loss and better A1C control She declines due to fear of needles She would like to work on her diet, and anxiety related eating Continue annual dental follow-up 09/2022 no DM retinopathy Foot exam R foot with loss of protective sensation in two places Assessment & Plan (12/21/2022 7:57 AM EDT): A1C 8.5 Recommend Trulicity for weight loss and better A1C control She declines due to fear of needles She would like to work on her diet, and anxiety related eating Continue annual dental follow-up BRIGHT09/2022 no DM retinopathy Foot exam R foot [...] Problem Noted Date Diagnosed Date Resolved Date Endometrial cancer 12/20/2023 Assessment & Plan (12/23/2023 2:30 PM EDT): [facility] panel edge painter/onc removed uterus 01/2023 F/u q 6 months with them Cough in adult 09/22/2023 05/25/2024 Assessment & Plan (12/21/2023 11:13 PM EDT): -persistent cough following URI may be acute asthma exacerbation -will trial a short course of prednisone 20 mg x5 days -advised use on albuterol nebulizer solution q4 h as needed -rtc if no improvement in 1 week -ED precautions reviewed Vaginal bleeding 09/21/2022 03/23/2025 Assessment & Plan (12/21/2022 7:54 AM EDT): Has EMB scheduled next week Assessment & Plan (09/21/2022 1:51 PM EDT): Unclear source of bleeding, she notes it intermittently when she is wiping, small amount of blood Will image with pelvic US Neuropathy 06/22/2022 05/25/2024 Encounters Date Type Department Care Team Description 03/29/2025 Refill [facility] [address] [place] [address] Amina Nieves MD Vaginal itching 03/24/2025 Refill [facility] [address] [place] [address] Amina Nieves MD 03/23/2025 9:00 AM EDT Office Visit [facility] [address] [place] [address] Amina Nieves MD Type 2 diabetes mellitus with diabetic neuropathy, without long-term current use of insulin ([facility]) (Primary Dx); Iron deficiency anemia, unspecified iron deficiency anemia type; Mitral valve stenosis, unspecified etiology; Primary hypertension; Hypercholesterolemia; Severe obesity ([facility]); Gastroesophageal reflux disease, unspecified whether esophagitis present; Irritable bowel syndrome with constipation; Right kidney stone; Endometrial adenocarcinoma ([facility]); Localized osteoarthritis of right knee; Polyneuropathy due to type 2 diabetes mellitus ([facility]); Obstructive sleep apnea; Mild intermittent asthma without complication 03/23/2025 Travel 03/22/2025 Telephone [facility] [address] [place] [phone] Amina Nieves MD chart prep 03/19/2025 9:20 AM EDT Office Visit [facility] [address] [place] [phone] Terri Kruse NP Right kidney stone (Primary Dx); Low back pain, unspecified back pain laterality, unspecified chronicity, unspecified whether sciatica present; Drug-induced constipation 03/19/2025 Travel 03/19/2025 Refill [facility] [address] [place] [phone] Amina Nieves MD 03/14/2025 Orders Only GENERIC EXTERNAL DATA DEPARTMENT Provider, Generic External Data 02/27/2025 Orders Only GENERIC EXTERNAL DATA DEPARTMENT Provider, Generic External Data 02/26/2025 Refill [facility] [address] [place] [phone] Amina Nieves MD 02/14/2025 Refill [facility] [address] [place] [phone] Amina Nieves MD 01/29/2025 Orders Only [facility] [address] [place] [phone] Amina Nieves MD 01/26/2025 Telephone [facility] [address] [place] [phone] Amina Nieves MD No Show 01/25/2025 Telephone [facility] [address] [place] [phone] Amina Nieves MD Chart prep 01/18/2025 Refill [facility] [address] [place] [phone] Narcisa Worrelljaylene 01/18/2025 Refill [facility] [address] [facility], [place] [phone] Amina Nieves MD 01/08/2025 Refill [facility] [address] [facility], [place] [phone] Amina Nieves MD Skin candidiasis from Last [...] housing situation today? I have timmeena rao 10/11/[address] you [...] Procedure Name Priority Date/Time Associated Diagnosis Comments RETICULOCYTE COUNT Routine 03/23/2025 10 :01 AM EDT Iron deficiency anemia, unspecified iron deficiency anemia type POCT GLUCOSE Routine 03/23/2025 9:17 AM EDT Type 2 diabetes mellitus with diabetic neuropathy, without long-term current use of insulin ([facility]) POCT URINALYSIS DIPSTICK Routine 03/19/2025 9:07 AM [...] Relevant to Health Maintenance Results * (ABNORMAL) Reticulocyte Count (03/23/2025 10:01 AM EDT) Reticulocytes Absolute 0.100(H) 0.026 - 0.095 X10*6/uL [facility] Immature Retic Fraction 21.8(H) 3.0 - 15.9 % [facility] Retic HGB Equivalent 29.2(L) 30.0 - 35.0 pg [facility] Reticulocyte Percent 2.4(H) 0.5 - 1.8 % [facility] Blood Venous blood specimen / Unknown 03/23/2025 10:01 AM EDT 03/23/2025 11:11 AM EDT Result [facility] Amina Nieves MD LAB BLOOD ORDERABLES Final Res ult [facility] [address] [place] [phone] * (ABNORMAL) POCT Glucose (03/23/2025 9:17 AM EDT) Glucose Blood, POC 284(A) 60 - 200 mg/dL QC Media Lot # [id number] Lot# Expiration Date Blood Capillary blood specimen / Unknown 03/23/2025 9:17 AM EDT Result [facility] Amina Nieves MD POINT OF CARE TEST [...] UA Ok Urine 03/19/2025 9:07 AM EDT Result [facility] Terri Kruse NP POINT OF CARE TEST ENTER/EDIT OR DERABLES Final Result * CT Abdomen Pelvis w/o Contrast (03/15/2025 12:48 AM EDT) Anatomical Region Laterality Modality Body, Pelvis, Abdomen Computed T omography 03/15/2025 12:4 8 AM EDT Narrative 03/15/2025 12:50 AM EDT [address] [address] [address] Scan Report Signed Patient: Karon Nur MR#: [id number] : 1955 Acct:[id number] Age/Sex: 69 / F ADM Date: 03/14/25 Loc: HO.ED Attending Dr: Ordering Physician: Shahnaz Varghese MD Date of Service: 03/15/25 Procedure(s): CT abdomen pelvis wo IV con Accession Number(s): [id number] cc: Amina Nieves; Shahnaz Varghese MD Report Number: [id number]: Total DLP = 978.00 mGy-cm Reason for Exam: right flank pain CLINICAL HISTORY: right flank pain CT abdomen and pelvis without contrast Comparison: CT/REG/WA/SR - CT ABDOMEN PELVIS W IV CON [...] gastrointestinal tract is unremarkable. There is a uzkro-tt-mgzuqkxm sized fat containing umbilical hernia. There are [...] Cates MD in OV> 03/15/2547 DD/ TD/TT: 03/15/258 Pearl Technician: Procedure Note Donotuseinterpreter, Image - 03/15/[address] [address] [address] Scan Report Signed Patient: Ron Nur#: [id number] : 3Acct:[id number] Age/Sex: 69 / FADM Date: 03/14/25 Loc: HO.ED Attending Dr: Ordering Physician: Shahnaz Varghese MD Date of Service: 03/15/25 Procedure(s): CT abdomen pelvis wo IV con Accession Number(s): [id number] cc: Amina Nieves; Shahnaz Varghese MD Report Number: [id number]: Total DLP = 978.00 mGy-cm Reason for Exam: right flank pain CLINICAL HISTORY: right flank pain CT abdomen and pelvis without contrast Comparison: CT/REG/WA/SR - CT ABDOMEN PELVIS W IV CON [...] gastrointestinal tract is unremarkable. There is a pxdjk-ft-hmttpcgb sized fat containing umbilical hernia. There are [...] MD in OV> 03/15/2547 DD/ TD/TT: 03/15/2547 Pearl Technician: [facility] External Provider IMG CT PROCEDURES Final Result * (ABNORMAL) Urinalysis, Complete, with Reflex to Culture (03/14/2025 10:50 PM EDT) Color Urine Yellow [facility] Appearance Urine Clear [facility] PH 5.5 5.0 - 9.0 [facility] Glucose Urine UA >=1000(A) Negative mg/dL [facility] Urine Blood Moderate (2+)(A) Negative [facility] Specific [place] - Urine 1.025 1.005 - 1.025 [facility] Urine Protein Trace Neg-Trace mg/dL [facility] Urine Ketones Negative Negative mg/dL [facility] Nitrite Urine Negative Negative [facility] Leukocyte Esterase Urine Negative Negative [facility] RBC Urine 11-20(A) 0 - 2 /HPF [facility] Urine WBC 0-5 0 - 5 /HPF [facility] Urine Squamous Epithelial Cell 0-2 0 - 2 /HPF [facility] Urine Bacteria None Seen None Seen [facility] Hyaline Casts, Urine 0-2 0 - 2 /LPF [facility] 03/14/2025 10:5 0 PM EDT 03/14/2025 10:53 PM EDT Narrative [facility] - 03/14/2025 11:17 PM EDT Urine, Clean Catch Generic External Data Provider LAB URINE ORDERAB LES Final Result [facility] [address] [place] [phone] [phone] * (ABNORMAL) CBC auto differential (03/14/2025 8:52 PM EDT) White Blood Count 9.5 4.8 - 10.8 X10*3/uL [facility] Red Blood Count 4.25 4.20 - 5.50 X10*6/uL [facility] Hemoglobin 11.7(L) 12.0 - 16.0 g/dl [facility] Hematocrit 33.9(L) 37.0 - 47.0 % [facility] Mean Corpuscular Volume 79.8(L) 80.0 - 98.0 fL [facility] Mean Corpuscular Hemoglobin 27.5 27.0 - 33.0 pg [facility] Mean Corpuscular HGB Conc 34.5 31.0 - 35.0 g/dl [facility] Red Cell Distribution Width 14.2 11.0 - 16.0 % [facility] Platelet Count 244 160 - 400 X10*3/uL [facility] Mean Platelet Volume 11.9 9.4 - 12.3 fL [facility] Neutrophils Percent Auto 78.3(H) 45 - 73 % [facility] Imm Gran Pct Auto 0.2 0.0 - 0.4 % [facility] Lymphocytes Percent Auto 14.4(L) 20 - 40 % [facility] Monocytes Percent Auto 5.8 2 - 11 % [facility] Eosinophils Percent Auto 1.0 0 - 4 % [facility] Basophils Percent Auto 0.3 0 - 2 % [facility] NRBC Pct Auto 0.0 0.0 - 0.2 /100WBC [facility] Neutrophils Absolute Auto 7.4 2.0 - 8.3 x10*3/uL [facility] Imm Gran Abs Auto 0.02 0.00 - 0.03 X10*3/uL [facility] Lymphocytes Absolute Auto 1.4 1.2 - 4.9 X10*3/uL [facility] Monocytes Absolute Auto 0.6 0.1 - 1.2 X10*3/uL [facility] Eosinophils Absolute Auto 0.1 0.0 - 0.4 X10*3/uL [facility] Basophils Absolute Auto 0.0 0.0 - 0.2 X10*3/uL [facility] NRBC Abs Auto 0.000 0.0 - 0.012 X10*3/uL [facility] 03/14/2025 8:52 PM EDT 03/14/2025 8:57 PM EDT Generic External Data Provider LAB BLOOD ORDERAB LES Final Result Performing Organization Address City/[facility]/ZIP Co de Phone Number [facility] [address] [place] [phone] * Lipase (03/14/2025 8:52 PM EDT) Pathologist [facility] Lipase 36 8 - 78 U/L [facility] 03/14/2025 8:52 PM EDT 03/14/2025 8:57 PM EDT [employer] External Data Provider LAB BLOOD ORDERAB LES Final Result Performing Organization Address [facility] de Phone Number [facility] [address] [place] [phone] * (ABNORMAL) Comprehensive Metabolic Panel (03/14/2025 8:52 PM EDT) Pathologist [facility] Sodium 136 135 - 145 mmol/L [facility] Potassium 4.0 3.3 - 5.1 mmol/L [facility] Chloride 104 96 - 108 mmol/L [facility] Carbon Dioxide 23 22 - 29 mmol/L [facility] Anion Gap 13 12 - 20 [facility] Urea Nitrogen (BUN) 21(H) 9 - 16 mg/dL [facility] Creatinine, Serum 1.24 0.5 - 1.4 mg/dL [facility] Creatinine Clr Calc Pharmacy 45.2 [facility] Comment:Provided height and weight: 149.86 cm,107.5 kg.eGFR (calculated from the MDRD study equation) and eCrCl(calculated from the Cockcroft-Gault equation) are based ondifferent parameters and may not yield comparable results.If eCrCl result is absurd, please check patient'sheight/weight. Estimated Glomerular Filt Rate 43 [facility] Comment:Chronic Kidney Disea se: Estimated GFR < 60 mL/min/[id number] Kidney Disease: Estimated GFR < 15 mL/min/1.73m2 Glucose 349(H) 60 - 115 mg/dL [facility] Calcium 9.8 8.4 - 10.2 mg/dL [facility] Bilirubin, Total 0.6 0.0 - 1.0 mg/dL [facility] Aspartate Amino Transferase 27 5 - 31 U/L [facility] Alanine Aminotransferase 35(H) 0 - 31 U/L [facility] Total Protein 7.2 6.5 - 8.0 g/dL [facility] Albumin Level 4.2 3.5 - 5.0 g/dL [facility] Alkaline Phosphatase 121(H) 39 - 117 U/L [facility] 03/14/2025 8:52 PM EDT 03/14/2025 8:57 PM EDT us Generic External Data Provider LAB BLOOD ORDERAB LES Final Result [facility] [address] [place] [phone] * (ABNORMAL) Hemoglobin A1c (02/27/2025 7:59 AM EDT) Hemoglobin A1c 9.1(H) <6.0 % [facility] Comment:Hemoglobin A1C Refer ence Range Adults: 4.8 - 6.0 % Non diabetic: < 6.0 % Goal: < 7.0 %Additional Action Suggested: > 8.0 %Note: Hemoglobin A1c results are invalid for patients with abnormal amounts of HbF. Blood transfusions may impact the HbA1c concentration in the patient sample. Estimated Average Glucose 214 mg/dL [facility] Comment:eAG = Estimated ave rage glucose which is %A1C expressed asaverage glucose, using the formula of the W4F-QnyrrakOcazwvp Glucose study (ADAG), Diabetes Care, Vol.31,#8,2007 02/27/2025 7:59 AM EDT 02/27/2025 7:59 AM EDT Generic External Data Provider LAB BLOOD ORDERAB LES Final Result Performing Organization Address [facility] Co de Phone Number [facility] [address] [place] [phone] * (ABNORMAL) Hepatic Function Panel (02/27/2025 7:59 AM EDT) Bilirubin, Total 0.7 0.0 - 1.0 mg/dL [facility] Bilirubin, Direct 0.2 0.0 - 0.5 mg/dL [facility] Aspartate Amino Transferase 30 5 - 31 U/L [facility] Alanine Aminotransferase 36(H) 0 - 31 U/L [facility] Total Protein 7.3 6.5 - 8.0 g/dL [facility] Albumin Level 4.4 3.5 - 5.0 g/dL [facility] Alkaline Phosphatase 118(H) 39 - 117 U/L [facility] 02/27/2025 7:59 AM EDT 02/27/2025 7:59 AM EDT Generic External Data Provider LAB BLOOD ORDERAB LES Final Result Performing Organization Address [facility] Co de Phone Number [facility] [address] [place] [phone] * BI Mammogram Screening Tomosynthesis Bilateral (01/29/2025 8:15 AM EDT) Anatomical Region Laterality Modality Breast Bilateral Mammography 01/29/2025 8:15 AM EDT Narrative 02/05/2025 5:09 PM EDT [facility] [address] [place] [address] Mammography Report Signed Patient: Karon Nur MR#: [id number] : 1955 Acct:[id number] Age/Sex: 69 / F ADM Date: 01/29/25 Loc: HO.MAMMO Attending Dr: Amina Nieves MD Ordering Physician: Amina Neives Results: 1Negative Date of Service: 01/29/25 Follow Up: 1 Year From Orig inal Mammogram Procedure(s): MM tomosynthesis screening BI Accession Number(s): [id number] cc: Amina Nieves EXAMINATION: MM SCREENING DIGITAL [...] 02/05/25 1705 DD/ 0815 TD/TT: 01/29/25 0830 Pearl Technician: Procedure Note Donotuseinterpreter, Image - 02/05/2025 [facility] [address] [place], [place] [address] Mammography Report Signed Patient: Ron Nur#: [id number] : 1955cct:[id number] Age/Sex: 69 / FADM Date: 01/29/25 Loc: HO.MAMMO Attending Dr: Amina Nieves MD Ordering Physician: Nicole Nievesults: 1Negative Date of Service: 01/29/25Follow Up: 1 Year From Orig ina Mammogram Procedure(s): MM tomosynthesis screening BI Accession Number(s): [id number] cc: Amina Nieves EXAMINATION: MM SCREENING DIGITAL [...] 02/05/25 1705 DD/ 0815 TD/TT: 01/29/25 0830 Pearl Technician: Amina Nieves MD [facility] BI PROCEDURES Final Result * (ABNORMAL) Lipid Panel with Reflex to Direct LDL (10/10/2024 7:54 AM EDT) Triglycerides 248(H) <150 mg/dL [facility] Comment:Desirable Triglyceri de: less than 150 mg/dLBorderline High Triglyceride 150-199 mg/dLHigh Triglyceride: 200-499 mg/dLVery High Triglyceride: greater than or equal to 5OO mg/dL Cholesterol 207(H) <200 mg/dL [facility] Comment:Desirable Cholestero l: less than 200 mg/dLBorderline High Cholesterol: 200-239 mg/dLHigh Cholesterol: greater than 239 mg/dL LDL Cholesterol Calculated 116(H) <100 mg/dL [facility] Comment:Desirable LDL: less than 100 mg/dLNear Optimal/Above Optimal LDL: 110- 129 mg/dLBorderline High LDL: 130-159 mg/dLHigh LDL: 160-189 mg/dLVery High LDL: greater than or equal to 190 mg/dL HDL Cholesterol 42 >40 mg/dL [facility] Comment:Desirable HDL: great er than 40 mg/dL Note: This HDL assay may give artificially low results in patients with liver disease. 10/10/2024 7:54 AM EDT 10/10/2024 7:54 AM EDT us Generic External Data Provider LAB BLOOD ORDERAB LES Final Result [facility] [address] [place] [phone] * Albumin, Random Urine W/Creatinine (05/25/2024 9:46 AM EST) Creatinine, Urine 85.32 mg/dL [facility] Microalbumin Urine 23.0 mg/L [facility] Microalbum Creatinine Ratio Ur 26.9 <30 ug/mg cr [facility] Comment:Albumin/Creatinine R atio Reference Ranges: Normal: < 30 ug/mg creatinine Microalbuminuria: 30 - 300 ug/mg creatinineClinical Albuminuria: > 300 ug/mg creatinine Urine (Urine, Random) 05/25/2024 9:46 AM EST 05/25/2024 11:28 AM EST Amina Nieves MD LAB URINE ORDERABLES Final Res ult Performing Organization Address [facility] Co de Phone Number [facility] [address] [place] [address] [phone] * Hepatitis C Antibody with Reflex to HCV, RNA, Quantitative, Real-Time PCR (05/25/2024 9:46 AM EST) Hepatitis C Antibody Nonreactive Nonreactive [facility] Comment:Antibodies to HCV no t detected; does not exclude early acuteHCV infection. Blood Venous blood specimen / Unknown 05/25/2024 9:46 AM EST 05/25/2024 10:53 AM EST Amina Nieves MD LAB BLOOD ORDERABLES Final Res ult Performing Organization Address [facility] Co de Phone Number [facility] [address] [place] [address] [phone] * (ABNORMAL) Colonoscopy (10/18/2019) Colonoscopy Abnormal(A ) Normal Historical Provider HEALTH MAINTENANCE Edited Result - Final from Last 3 Months or Most Recently Relevant to Health Maintenance Insurance [address] [place] [address] [facility] ASSISTED OPTIONS (HMO D-SNP) [place] [id number] * Guarantor: Karon Nur Account Type Relation to Patient Date of Phone Billing Address Personal/Family Self [address] [place] [address] * Guarantor: Karon Nur Account Type Relation to Patient Date of Phone Billing Address Personal/Family Self [address] [place] [address] * Guarantor: Karon Nur Account Type Relation to Patient Date of Phone Billing Address Personal/Family Self [address] [place] [address] Care Teams Financial Sales Representative Relationship Specialty Start Date End Date Amina Nieves MD [address] [place] [address] [place] [address] PCP - General Family Medicine 04/07/21
--- OUTSIDE RECORDS SUMMARY | 2025-03-30 12:21 | XMS_ITS | Patient Health Record ---
Author Organization [facility] Address [address] [facility] [place] [address] Care Team Providers Care Systems Testing Laboratory Technician Name Role Phone Carmen Santiago Primary Care Provider Unavailab Risa Castellanos Unavailable [phone] Nyla Welsh Unavailable [phone] Allergies Allergen (clinical drug ingredient) Drug/Non Drug [...] Polyneuropathy due to type 2 diabetes mellitus (253788590) Type 2 diabetes mellitus with diabetic polyneuropathy (E11.42) Active confirmed Vital Signs Blood pressure diastolic 70 mm Hg 03/13/2025 Height 4ft 11in in 03/13/2025 Blood pressure systolic 160 mm Hg 03/13/2025 Weight 235 lbs 03/13/2025 BMI 47.46 kg/m2 03/13/2025 Encounters Encounter Location Date Provider Diagnosis [address] [address] 04/11/2024 Risa Chen Type 2 diabetes mellitus with diabetic polyneuropathy E11.42 and Xerosis of skin L85.[address] [address] 06/30/2024 Risa Chen Type 2 diabetes mellitus with diabetic polyneuropathy E11.42 and Xerosis of skin L85.[address] [address] 09/13/2024 Risa Chen Type 2 diabetes mellitus with diabetic polyneuropathy E11.42 ; Xerosis of skin L85.3 ; Other hammer toe(s) (acquired), right foot M20.41 and Other hammer toe(s) (acquired), left foot M20.[address] [address] 12/07/2024 Nyla Welsh Type 2 diabetes mellitus with diabetic polyneuropathy E11.[address] [address] 03/13/2025 Risa Chen Type 2 diabetes mellitus [...] Details Provider Name:Risa singh, 05/29/2025 11:00:00 AM, [address] [place] [address], [phone], Insurance Providers Payer Name Payer Address Payer Phone Subscriber Number Group Number Insured Name Patient Relationship to Insured Coverage Start Date Coverage End Date [facility] [employer] Claims [address] [place] [id number] Karon Howard Self - patient is the insured Medical (General) History Medical History History ICD Code Arthritis asthma type I diabetes Headaches High blood pressure Cataracts Joint implants/screws Cholesterol Surgical History Surgery Date(Month/Year) cataract removal 06/2024
--- OUTSIDE RECORDS SUMMARY | 2025-03-30 12:21 | XMS_ITS | Encounter Summary ---
Author Organization [employer] Address [address] [place] [address] 7t [place] [address] Care Team Providers Care Nurse Paralegal Name Role Phone Amina Nieves MD Primary Care Provider [phone] Encounter Details Date Type Department Care Team (Late st Contact Info) Description 10/26/2024 Telephone [facility] MED[facility]INE [address] [place], [place] [phone] Amina Nieves MD [address] [place], [place] [phone] Social History Tobacco Use Types Packs/Day Years [...] documented as of this encounter Care Teams Nurse Paralegal Relationship Specialty Start Date End Date Amina Nieves MD [address] [place] [address] PCP - General Family Medicine 04/07/21 documented as of this encounter
--- OUTSIDE RECORDS SUMMARY | 2025-03-30 12:21 | XMS_ITS | Encounter Summary ---
Author Organization [employer] Address [address] [place] [address] 7t [place] [address] Care Team Providers Care Competitive Shopper Name Role Phone Amina Nieves MD Primary Care Provider [phone] Reason for Visit * Reason Comments Med Refill Encounter Details Date Type Department Care Team ([facility] st Contact Info) Description 03/24/2025 Refill [facility] MEDICINE [address] [place], [place] [phone] Amina Nieves MD [address] [place], [place] [phone] Social History Tobacco Use Types Packs/Day Years [...] documented as of this encounter Care Teams Competitive Shopper Relationship Specialty Start Date End Date Amina Nieves MD [address] [place] [address] PCP - General Family Medicine 04/07/21 documented as of this encounter
--- OUTSIDE RECORDS SUMMARY | 2025-03-30 12:21 | XMS_ITS | Patient Health Record ---
Author Organization [facility] Address [address] [place] [address] Care Team Providers Care Building Maintenance Repairer Name Role Phone Tyson Cam NP Primary Care Provider Celso Zepeda Unavailable [phone] Allergies Allergen (clinical drug ingredient) Drug/Non Drug [...] Problem Status W/U Status Risk Notes Problem [id number] Encounter for screening for malignant neoplasm of colon (Z12.11) Active confirmed Problem 980479782 History of adenomatous polyp of colon (Z86.010) Active confirmed Problem 63030793 Irritable bowel syndrome without diarrhea (K58.9) Active confirmed Problem [id number] Abdominal pain, left upper quadrant (R10.12) Active confirmed Plan Of Treatment Future Test Test Name Order Date COLONOSCOPY 05/23/2013 COLONOSCOPY 08/03/2019 Insurance Providers Payer Name Payer Address Payer Phone Subscriber Number Group Number Insured Name Patient Relationship to Insured Coverage Start Date Coverage End Date [facility] [address] [place] [phone] [id number] BELKIS SAMPSON Self - patient is the insured Medical (General) History Medical History History ICD Code Migraines Asthma Hypertension Back pain DM Denies LA,CVA,renal disease GERD--EGD 09/2012 with mild g astritis and H.pylori--the H. pylori has not been treated Neg. abd U/S in 09/2012 Colonoscopy 2004 was negativ e; Colonoscopy in 07/2013-1 tubular adenoma removed Hyperlipidemia IBS--chronic LUQ discomfort Kidney stones Surgical History Surgery Date(Month/Year) tubal ligation eye surgery left knee replacement--Dr. Craft 04/30 14
--- OUTSIDE RECORDS SUMMARY | 2025-03-30 12:21 | XMS_ITS | Encounter Summary ---
Author Organization [employer] Address [address] [place] [address] 7t [place] [address] Care Team Providers Care Medical Orderly Name Role Phone Amina Nieves MD Primary Care Provider [phone] Reason for Referral * Consultation (Routine) - Authorized Specialty Diagnoses / Procedures Referred By Contac t Referred To Contact Pharmacy Diagnoses HTN (hypertension) Amina Nieves MD [address] [place] [address] Phone: tel: fax: Referral ID Status Reason Start Date Expiration Date Visits Requested Visits Authorized [id number] Authorized Continuity of Care 10/25/2024 10/25/2025 6 6 Encounter Details Date Type Department Care Team (Late st Contact Info) Description 10/25/2024 Orders Only [facility]INE [address] [place], [place] [phone] Amina Nieves MD [address] [place], [place] [phone] HTN (hypertension) (Primary Dx) Social History Tobacco [...] documented as of this encounter Care Teams Medical Orderly Relationship Specialty Start Date End Date Amina Nieves MD [address] [place] [address] PCP - General Family Medicine 04/07/21 documented as of this encounter
--- OUTSIDE RECORDS SUMMARY | 2025-03-30 12:21 | XMS_ITS | Encounter Summary ---
Author Organization [employer] Address [address] [place] [address] 7t [place] [address] Care Team Providers Care Computer Equipment Repairer Name Role Phone Amina Nieves MD Primary Care Provider [phone] Reason for Visit * Reason Comments Med Refill Encounter Details Date Type Department Care Team ([facility] st Contact Info) Description 03/29/2025 Refill [facility] MEDICINE [address] [place], [place] [phone] Amina Nieves MD [address] [place], [place] [phone] Vaginal itching Social History Tobacco Use Types Packs/Day Years [...] of this encounter Visit Diagnoses Diagnosis Vaginal itching Pruritus of genital organs documented in this encounter Additional Health Concerns Assessment Noted Time PHQ-9 Depression Total Score: 0 10/21/19 25 10:26 AM EDT documented as of this encounter Care Teams Computer Equipment Repairer Relationship Specialty Start Date End Date Amina Nieves MD [address] [place] [address] PCP - General Family Medicine 04/07/21 documented as of this encounter
--- OUTSIDE RECORDS SUMMARY | 2025-03-30 12:22 | XMS_ITS | Encounter Summary ---
Author Organization [employer] Address [address] [place] [address] 7t [place] [address] Care Team Providers Care Blending Machine Operator Name Role Phone Amina Nieves MD Primary Care Provider [phone] Reason for Visit * Reason Comments Med Refill Encounter Details Date Type Department Care Team ([facility] st Contact Info) Description 01/23/2023 Refill [facility]INE [address] [place] [address] Amina Nieves MD [address] [place] [address] Social History Tobacco Use Types Packs/Day Years [...] documented as of this encounter Care Teams Blending Machine Operator Relationship Specialty Start Date End Date Amina Nieves MD [address] [place] [address] PCP - General Family Medicine 04/07/21 documented as of this encounter
--- OUTSIDE RECORDS SUMMARY | 2025-03-30 12:22 | XMS_ITS | Encounter Summary ---
Author Organization [employer] Address [address] [place] [address] 7t [place] [address] Care Team Providers Care Power Generation Engineer Name Role Phone Amina Nieves MD Primary Care Provider [phone] Encounter Details Date Type Department Care Team (Late st Contact Info) Description 10/27/2022 Orders Only [facility] MED[facility]INE [address] [place], [place] [phone] Amina Nieves MD [address] [place], [place] [phone] Vaginal bleeding (Primary Dx); Endometrial thickening on [...] documented as of this encounter Care Teams Power Generation Engineer Relationship Specialty Start Date End Date Amina Nieves MD [address] [place] [address] PCP - General Family Medicine 04/07/21 documented as of this encounter
--- OUTSIDE RECORDS SUMMARY | 2025-03-30 12:22 | XMS_ITS | Encounter Summary ---
Author Organization [employer] Address [address] [place] [address] 7t [place] [address] Care Team Providers Care Yacht Captain Name Role Phone Amina Nieves MD Primary Care Provider [phone] Reason for Visit * Reason Comments Med Refill Encounter Details Date Type Department Care Team ([facility] st Contact Info) Description 05/07/2023 Refill [facility] MEDICINE [address] [place], [place] [phone] Amina Nieves MD 230 [place], [place] [phone] [place] Social History Tobacco Use Types Packs/Day [...] documented as of this encounter Care Teams Yacht Captain Relationship Specialty Start Date End Date Amina Nieves MD [address] [place] [address] PCP - General Family Medicine 04/07/21 documented as of this encounter
--- OUTSIDE RECORDS SUMMARY | 2025-03-30 12:22 | XMS_ITS | Encounter Summary ---
Author Organization [employer] Address [address] [place] [address] 7t [place] [address] Care Team Providers Care Digital Imaging Specialist Name Role Phone Amina Nieves MD Primary Care Provider [phone] Reason for Visit * Reason Comments Med Refill Encounter Details Date Type Department Care Team ([facility] st Contact Info) Description 06/01/2024 Refill [facility] MEDICINE [address] [place], [place] [phone] Jhoana Worrell DO 230 [place], [place] [phone] Social History Tobacco Use Types Packs/Day Years [...] documented as of this encounter Care Teams Digital Imaging Specialist Relationship Specialty Start Date End Date Amina Nieves MD [address] [place] [address] PCP - General Family Medicine 04/07/21 documented as of this encounter
--- OUTSIDE RECORDS SUMMARY | 2025-03-30 12:22 | XMS_ITS | Encounter Summary ---
Author Organization [employer] Address [address] [place] [address] 7t [place] [address] Care Team Providers Care Van Driver Helper Name Role Phone Amina Nieves MD Primary Care Provider Encounter Details Date Type Department Care Team (Late st Contact Info) Description 01/26/2024 Orders Only [facility] MEDICINE [address] [place], [place] [phone] Amina Nieves MD [address] [place], [place] [phone] Social History Tobacco Use Types Packs/Day Years [...] documented as of this encounter Care Teams Van Driver Helper Relationship Specialty Start Date End Date Amina Nieves MD [address] [place] [address] PCP - General Family Medicine 04/07/21 documented as of this encounter
[2025-04-02] VITALS (8 sets, daily range): BP systolic 116–178; BP diastolic 53–72; PULSE 65–81; RESP 13–20; TEMP 36.1–37.1; O2SAT 95–98; BMI 46.3
--- NOTE | ~2025-04-02 | FL_ITS ---
EXAMINATION: XR FLUOROSCOPY WITH IMAGES CLINICAL INFORMATION: Retrograde right ureteroscopy for calculus. COMPARISON: CT abdomen and pelvis 03/15/2025 TECHNIQUE: Fluoroscopy provided to: Dr. Navarrete Fluoroscopy time: 33 seconds DAP: 264.3 uGycm2 Images: 2 FINDINGS: 2 fluoroscopic spot images obtained during the retrograde right ureteroscopy and stent placement. Please refer to the full operative report for details. FL/FL guidance in OR IMPRESSION: Fluoroscopic guidance. Electronically signed by: Sam Lemon MD 04/03/2025 08:15 AM EDT
--- NOTE | 2025-04-02 13:19 | HO.ANESPROP2 ---
[facility] Active Problems Active Problems: All Active Problems Hydronephrosis with obstructing calculus (Acute) Fatigue (Acute) Irritable mood (Acute) Obesity (BMI 35.0-39.9 without comorbidity) (Acute) Impingement syndrome, shoulder, left (Acute) Arthritis of right knee (Acute) S/P knee replacement (Acute) Left knee pain (Acute) Gas bloat syndrome (Acute) Pre-procedure lab exam (Acute) Abnormal abdominal ultrasound (Acute) Endometrial cancer (Acute) Postmenopausal bleeding (Acute) Urinary urgency (Acute) Urinary frequency (Acute) Microscopic hematuria (Acute) Calculus of left kidney (Acute) Urinary tract infection in female (Acute) Flank pain (Acute) Gallbladder polyp (Acute) Irritable bowel syndrome (Acute) TERENCE (obstructive sleep apnea) (Acute) Umbilical hernia (Acute) Obesity (Acute) Chronic generalized abdominal pain (Acute) GERD (gastroesophageal reflux disease) (Acute) Poor historian (Acute) LUQ pain (Acute) Renal calculi (Acute) Right foot pain (Acute) Primary osteoarthritis involving multiple joints (Acute) NAFLD (nonalcoholic fatty liver disease) (Acute) Diverticulosis of colon (Acute) Hemorrhoids (Acute) Tubular adenoma (Acute) Postprandial abdominal bloating (Acute) History of renal calculi (Acute) Hx of total knee arthroplasty (Acute ~2017) Osteoarthritis of right knee (Acute) Diabetes mellitus (Acute) Ingrown nail of great toe of right foot (Acute) Arthritis of first MTP joint (Acute) Past Medical History Medical History Endometrial cancer Renal calculi Irritable bowel syndrome Microscopic hematuria Eczema GERD (gastroesophageal reflux disease) Bursitis of heel Achilles tendinitis Juvenile xanthogranuloma Pilar cysts Hypercholesterolemia Kidney stones Osteoarthritis of right knee Osteoarthritis of left knee Hypertension Diabetes mellitus Family History Family history of problems with anesthesia: No Surgical History Surgical History History of surgery Hx of total knee arthroplasty (~2017) History of tubal ligation History of Problems with Anesthesia: No Social History Social History Household Members: None Housing: Apartment Alcohol intake: never Patient Tobacco Use Status: Never used Tobacco Use of substances other than those prescribed or required for medical reasons: No Advance Directives: No Advance Directives Information Provided: Yes Current occupational status: disabled Meds Allergies Allergy/AdvReac Type Severity Reaction Status Date / Time Penicillins (PENICILLINS) Allergy Intermediate HIVES Verified 03/26/25 13:15 fluticasone (From Advair Allergy Mild Unknown Verified 03/26/25 13:15 Diskus) potassium Allergy Mild Unknown Verified 03/26/25 13:15 salmeterol (From Advair Allergy Mild Unknown Verified 03/26/25 13:15 Diskus) Home Medications ?Medication ?Instructions ?Recorded ?Confirmed ?Last Taken ?Type amlodipine 5 mg tablet 5 mg PO DAILY 05/02/20 03/26/25 04/24/21 History aspirin 81 mg tablet,delayed 81 mg PO DAILY 05/02/20 03/26/25 04/24/21 History release (Adult Low Dose Aspirin) cholecalciferol (vitamin D3) 50 50 mcg PO DAILY 05/02/20 03/26/25 04/24/21 History mcg (2,000 unit) capsule gabapentin 100 mg capsule 100 mg PO BID 05/02/20 03/26/25 04/24/21 History irbesartan 300 mg tablet 300 mg PO DAILY 05/02/20 03/26/25 04/24/21 History isosorbide mononitrate 30 mg 30 mg PO DAILY 05/02/20 03/26/25 04/24/21 History tablet,extended release 24 hr rosuvastatin 10 mg tablet 10 mg PO DAILY 05/02/20 03/26/25 04/24/21 History calcium 500 mg (as 1 tab PO DAILY 04/25/21 03/26/25 04/24/21 History carbonate)-vitamin D3 5 mcg (200 unit) tablet (Oyster Shell Calcium-Vitamin D3) dapagliflozin propanediol 10 mg 10 mg PO DAILY 08/07/21 03/26/25 Unknown History tablet (Farxiga) metformin 500 mg tablet,extended 1,000 mg PO 03/09/22 03/26/25 Unknown History release 24 hr blood sugar diagnostic (FreeStyle #10 ea 08/10/22 03/26/25 Unknown History Lite Strips) lancets 33 gauge (TRUEplus Lancets) #100 ea 12/10/23 03/26/25 Unknown History montelukast 10 mg tablet 10 mg PO DAILY 12/10/23 03/26/25 Unknown History carvedilol 12.5 mg tablet 12.5 mg PO BID 06/30/24 03/26/25 Unknown History furosemide 20 mg tablet 20 mg PO DAILY 06/30/24 03/26/25 Unknown History Exam Height,Weight and Vital Signs: Height 4 ft 11 in Weight 104 kg Airway Mallampati Class: II (missing a couple, one chipped laterally) TM Dist: >3cm Neck ROM: Full Heart: rrr Lungs: cta Assessment and Plan Assessment Anesthesia Assessment: Anesthesia Plan Discussed and Chart Reviewed Final Anesthetic Review Family History of Problems with Anesthesia: No History of Problems with Anesthesia: No NPO: Yes ASA Class: III Final Preanesthetic Review: No Changes in Pt Med Stat, Meds/Allgs Chart Reviewed and Consent Obtained/Reviewed Patient Risk: Intermediate Procedure Risk: Low Anesthetic Plan Anesthetic Plan: GA Disposition: Standard PACU
[2025-04-02] MEDS: Lactated Ringers 1,000 ML 50 ML IVCONT (13:56)
[2025-04-02 14:11] LABS: Glucose, Whole Blood 176 mg/dL (60-115)
--- NOTE | 2025-04-02 15:19 | MHC.SHP ---
Pre-Procedural Eval Section A - 24 Hr Update-Section A only Date of Service: 04/02/25 The patient is an INPATIENT: No Changes since office visit: No Cold of Flu in the past 2 weeks, No New Medical Problems, No Changes in Medication and No Patient answered all questions The patient has been examined within 24 hours of the surgical procedure. The History & Physical has been completed within 30 days and I have reviewed it.: Yes Section B - Complete if H&P > 30 days Chief Complaint: Hydronephrosis with renal and ureteral calculous o Details of Present Illness: She believes she may have passed a stone on the right side. She did bring stone in today. It is rather large. We recommend cystoscopy with retrograde in order to confirm. Allergies: Allergies Allergy/AdvReac Type Severity Reaction Status Date / Time Penicillins (PENICILLINS) Allergy Intermediate HIVES Verified 03/26/25 13:15 fluticasone (From Advair Allergy Mild Unknown Verified 03/26/25 13:15 Diskus) potassium Allergy Mild Unknown Verified 03/26/25 13:15 salmeterol (From Advair Allergy Mild Unknown Verified 03/26/25 13:15 Diskus) Review of Systems Sugical H&P ROS: Negative: Constitution, Cardiovascular, Respiratory, Neurological, Psychiatric, Hem-Onc, Allergic/Immunologic, Gastrointestinal, Genitourinary, Musculoskeletal, Integumentary, Endocrine and Eyes/Ears/Nose/Throat Exam Surgical H&P Exam: Normal: HEENT, Normal: Heart, Normal: Lungs, Normal: Extremities, Normal: Abdomen, Normal: Skin and Normal: Neurological Plan Diagnosis/Plan: Change (Instead of ureteroscopy will just performed cystoscopy with right retrograde) I have reviewed the history and physical and performed a pertinent physical examination on my patient. No changes have occurred unless specified. Time Spent With Patient Time: Total time managing care of this patient today ____ minutes.
--- NOTE | 2025-04-02 16:08 | W.PM.OPN ---
Operative Note Operative Note Date of Service: 04/02/25 Narrative: PreOperative Diagnosis: Right ureter stone Post Operative Diagnosis: Right mild hydro nephrosis Procedure: Right retrograde, right stent placement Surgeon: Dr Isaiah Navarrete Anesthesia: Sedation Indications for procedure: ER presentation right proximal stone. She brought the stone to the operating room. Still plan for retrograde depending if has some mild inflammation. Procedure: After informed consent was verified the patient was brought to the operating room and placed in a supine position. Anesthesia was administered per protocol. The patient was placed in modified dorsal lithotomy position and prepped and draped in a sterile fashion. A safety pause time-out was performed. Laterality of procedure and antibiotics were confirmed, appropriate imaging was available A 22 Australian cystoscope was introduced per urethra. No abnormality was noted of urethra or bladder. Both ureteric orifices were seen in a normal position. Right ureter appeared to be a little inflamed and swollen from recent stone passage The right ureter was cannulated with an open ended catheter and a retrograde examination was performed. Narrowing at proximal ureter where stone had been on CT . Mild hydronephrosis. Decision made to place stent. A Sensor guidewire was placed under fluoroscopy and a good coil was seen within the renal pelvis. A 6 Australian by 22 cm double J stent was advanced over the wire and up to the level of the renal pelvis under fluoroscopic and direct visualization. The stent was seen with appropriate coil within the renal pelvis and in the bladder after deployment. The patient tolerated the procedure well and was transferred in a stable condition to the recovery area. Pathology: Drains: As above
== END 2025-04-02 17:18 | disposition home or self-care (01) ==
PROVIDERS: PCP General Practice; Visit Provider Urology
PROC: 0TJ98ZZ Inspection of Ureter, Via Natural or Artificial Opening Endoscopic (ICD-10-PCS; CPT 52351; principal; 2025-04-02 14:50)
DX: N13.2 Hydronephrosis with renal and ureteral calculous obstruction (principal); R31.29 Other microscopic hematuria; Z85.42 Personal history of malignant neoplasm of other parts of uterus; I10 Essential (primary) hypertension; E78.00 Pure hypercholesterolemia, unspecified; E11.9 Type 2 diabetes mellitus without complications; K21.9 Gastro-esophageal reflux disease without esophagitis; G47.33 Obstructive sleep apnea (adult) (pediatric); K58.9 Irritable bowel syndrome, unspecified; K76.0 Fatty (change of) liver, not elsewhere classified; L30.9 Dermatitis, unspecified; Z79.1 Long term (current) use of non-steroidal anti-inflammatories (NSAID); Z79.82 Long term (current) use of aspirin; Z79.84 Long term (current) use of oral hypoglycemic drugs; Z79.899 Other long term (current) drug therapy; Z91.09 Other allergy status, other than to drugs and biological substances; Z88.0 Allergy status to penicillin; Z88.8 Allergy status to other drugs, medicaments and biological substances; Z98.51 Tubal ligation status; Z98.890 Other specified postprocedural states
CPT/HCPCS: 52332; 82365; 82947; 88300; C1758; C1769; C2617; J1956; J2405; J2704; J3010; Q9967

== ENCOUNTER → 2025-04-02 11:57 | Outpatient (BNV) | payer OTHER, SELFPAY | PROVIDERS: PCP General Practice; Visit Provider Urology | DX: N20.1 Calculus of ureter (principal); N13.30 Unspecified hydronephrosis | CPT/HCPCS: 52332; 74420 ==

== ENCOUNTER 2025-04-09 10:03 | Outpatient (AMB) | payer OTHER, SELFPAY ==
--- OUTSIDE RECORDS SUMMARY | 2024-11-28 06:00 | XMS_ITS ---
Author Organization [facility] Address [address] [place] [address] Care Team Providers Care Snorkelling Instructor Name Role Phone Carmen Santiago Primary Care Provider Unavailab Risa Castellanos Unavailable [phone] Yancey Encounters Encounter Location Date Provider Diagnosis [facility] [address] [place] [address] 11/28/2024 Risa Chen Plan Of Treatment Next Appt Details Provider Name:Risa singh, 05/29/2025 11:00:00 AM, [address] [place], [address], Progress Notes * Cheri ARELLANOsDOB: [birth year] (69 yo F)Acc No.[id number]:11/28/2024 Progress Note Patient: Supriya QUIROGA Karon Provider: Chuck Chen DPM :1955 A ge:69 Y S ex:Female Date:11/28/2024 Address:[address] [place] [address] [address], [place], [place] Pcp:Carmen Santiago Subjective: * Chief Complaints: * [...] 11/28/2024 Generated for Cheryl bundy/Rashard/Pedro on: 0 04/09/2025 11:11 AM EDT
[2025-04-09 10:13] VITALS: BP 138/52; PULSE 68; O2SAT 93; BMI 46.7
--- NOTE | 2025-04-09 10:13 | A.OFFVIS_ITS ---
Vital Signs 04/09/25 10:13 Height 4 ft 11 in Weight 231 lb 2 oz BMI 46.7 BP 138/52 L Blood Pressure Location Rt brachial Position Sitting Pulse 68 Pulse Source Pulse Oximeter Pulse Oximetry (%) 93 Oxygen Delivery Method Room Air Intake Visit Reasons: 6 mo follow up Intake Note: Patient presents follow up TERENCE. Compliance in chart(90/90days, >=4hrs-97%, Average Usage- 6hr 6min, Pressure-13cm, Med leaks-16.9, AHI-2.9). Jira Developer Required: Yes Jira Developer Language: Household Appliance Mechanic Services: Jira Developer Offered & Declined Jira Developer Name: Son Information Interpreted: non-clinical & clinical Accompanied by: Son Allergies Penicillins (PENICILLINS) Allergy (Intermediate, Verified 04/09/25 10:24) HIVES fluticasone (From Advair Diskus) Allergy (Mild, Verified 04/09/25 10:24) Unknown potassium Allergy (Mild, Verified 04/09/25 10:24) Unknown salmeterol (From Advair Diskus) Allergy (Mild, Verified 04/09/25 10:24) Unknown HPI Comments Details: 69 y/o r. handed female presents for follow up of TERENCE on CPAP. Her son Mirna is interpreting for her today. TERENCE Compliance Report 12/2024- 03/2025 Total avg use is 90/90 days and > 4hours is 97% Avg daily use is 6hrs and 6min Pressures [id number] Leaks 16.9cmH20 AHI is 2.9cmH20 She washes her mask, rinses hoses, changes filters and fills reservoir with water. She feels refreshed when she uses her CPAP at night, her fatigue and brain fog has improved. She goes to bed at 11pm at night and wakes up at 5am with no bathroom breaks, sleep has improved. She was seen last week by the urologist for r. sided nephrolithiasis, hydronephrosis, and 7mm kidney stone, still obstructing the ureter will f/u with Dr. Navarrete. She continues to have morning headaches, denies vision changes, photophobia, phonophobia, dizziness, and vertigo. We discuss labs today and continued elevation of HgA1c is 9.5, she is taking metformin 500mg po BID, will defer to PCP. Her BP is better managed, still has symptoms of neuropathy, bilateral edema has improved mildly with use of compression stocking. She denies RLS symptoms, denies bilateral lower extremity paresthesias. She has instability of gait and balance, uses her cane and ambulates slowly, leans to the sides when she walks. Despite having bone spurs in heels, she still walks for 15-30 min daily and stays active. Her memory mood and diet are stable. [facility], [facility] Medical History Endometrial cancer Renal calculi Irritable bowel syndrome Microscopic hematuria Eczema GERD (gastroesophageal reflux disease) Bursitis of heel Achilles tendinitis Juvenile xanthogranuloma Pilar cysts Hypercholesterolemia Kidney stones Osteoarthritis of right knee Osteoarthritis of left knee Hypertension Diabetes mellitus Surgical History History of surgery Hx of total knee arthroplasty (~2017) History of tubal ligation Social History Household Members: None Housing: Apartment Alcohol intake: never Patient Tobacco Use Status: Never used Tobacco Current occupational status: disabled Female Reproductive History Menstrual Age of Menarche: 13 Physical Exam Vital Signs: Last Vital Signs Pulse 68 04/09/25 10:13 BP 138/52 L 04/09/25 10:13 Pulse Ox 93 04/09/25 10:13 Oxygen Delivery Method Room Air 04/09/25 10:13 BMI result Body Mass Index 46.7 Const General: cooperative, healthy appearing, comfortable, no acute distress, well developed, alert and awake Nutritional Appearance: overweight Orientation/consciousness: patient oriented x3 Limitations: ambulation with cane HEENT Head: Yes normal to inspection, Yes normocephalic and Yes atraumatic Ears: hearing grossly normal bilaterally Eyes General: appearance normal, both eyes and all related structures Neck Neck: Yes normal visual inspection and Yes trachea midline Chest Chest palpation & inspection: normal inspection of the chest Resp Effort & Inspection: normal respiratory effort and able to speak in complete sentences Cardio Rate: regular rate Skin General skin exam: no rashes or lesions noted Neuro General: patient oriented x3 Extrem General: Yes normal to inspection Psych Appearance: grossly normal and well kempt Mental Status: mental status grossly normal Speech and movement: Normal speech and movement present, Clear speech present and Other speech and movement exam findings present (Psych) (language barrier) Affect: normal affect Attitude: cooperative Thought process: Normal thought process present Thought content: Normal thought content present Insight: Fair insight present (Psych) Judgement: Fair judgement present (Psych) Results Reviewed Results Reviewed: Renal US/ IMPRESSION: 1. 7 mm proximal right ureteral stone with moderate hydronephrosis. 2. Small bilateral nonobstructing renal stones. 3. Cholelithiasis. 4. Small pericardial effusion. 5. Additional chronic findings as above. TERENCE Compliance Report 12/2024- 03/2025 Total avg use is 90/90 days and > 4hours is 97% Avg daily use is 6hrs and 6min Pressures [id number] Leaks 16.9cmH20 AHI is 2.9cmH20 She washes her mask, rinses hoses, changes filters and fills reservoir with water. Assessment & Plan Assessment & Plan (1) TERENCE (obstructive sleep apnea): Comment: Severe degree of TERENCE with increased severity in REM. The total AHI was 24/hr, REM AHI was 39/hr with oxygen akila was 76% Code(s): G47.33 - Obstructive sleep apnea (adult) (pediatric) Category: Medical (2) Obesity (BMI 35.0-39.9 without comorbidity): Code(s): E66.9 - Obesity, unspecified Category: Medical (3) Irritable mood: Code(s): R45.4 - Irritability and anger Category: Medical (4) Obesity: Code(s): E66.9 - Obesity, unspecified Category: Medical Qualifiers: Obesity type: due to excess calories Obesity classification: adult class 3 (BMI >= 40) Serious obesity comorbidity presence: unspecified whether serious comorbidity present Body mass index: BMI 45.0-49.9 Qualified Code(s): E66.813 - Obesity, class 3; E66.01 - Morbid (severe) obesity due to excess calories; Z68.42 - Body mass index [BMI] 45.0-49.9, adult (5) Anemia: Code(s): D64.9 - Anemia, unspecified Category: Medical (6) Excessive daytime sleepiness: Code(s): G47.19 - Other hypersomnia Category: Medical Plan TERENCE on CPAP and has improved her daily compliance with new mask and supplies. Reviewed labs with pt and her son today, HgA1c is elevataed to 9.5, discussed taking medications as prescribed and managing T2DM. R. Flank pain, managed by Urology, nephrolithiasis, 7mm stone and stent placement f/u with Dr. Navarrete. Continue vitamin D and B12 1000mcg po daily, will repeat labs to check levels for improvement of Ferritin, re: Anemia. RLS symptoms of burning tingling, numbness lower extremities bilaterally continue to wear compression stockings at least 2 hours per day and gabapentin for symptomatic treatment 100mg po at bedtime. Headaches will monitor for improvement continue to increase water intake. F/U in 4 months Orders: Orders Vitamin B1 Today D64.9 - Anemia, unspecified Vitamin D 25-OH Total Today D64.9 - Anemia, unspecified, G47.19 - Other hypersomnia Vitamin B6 Today D64.9 - Anemia, unspecified Vitamin B12 and Folate Today D64.9 - Anemia, unspecified TSH reflex Free T4 Today D64.9 - Anemia, unspecified Methylmalonic Acid Today D64.9 - Anemia, unspecified, G47.9 - Sleep disorder, unspecified, R53.83 - Other fatigue Homocysteine Today D64.9 - Anemia, unspecified, G47.9 - Sleep disorder, unspecified, R53.83 - Other fatigue Ferritin Today D64.9 - Anemia, unspecified Patient Instructions: Sleep Hygiene provided: set a scheduled bedtime and wake time to help regulate the circadian rhythm and balance the release of pituitary hormones. Sleep in a dark room, temperatures below 68 degrees, and no devices n bed. Limit caffeinated products 6 hours prior to bed, and limit fluids 2-4 hours prior to bed. Gentle night yoga, diffusing essential oils, and playing soft music can be relaxing. Coding Level of Care Code Est Pt Level 4 (13811) Diagnoses TERENCE (obstructive sleep apnea) G47.33 Obesity (BMI 35.0-39.9 without comorbidity) E66.9 Irritable mood R45.4 Class 3 severe obesity due to excess calories with body mass index (BMI) of 45.0 to 49.9 in adult, unspecified whether serious comorbidity present E66.813; E66.01; Z68.42 Obesity type: due to excess calories Obesity classification: adult class 3 (BMI >= 40) Serious obesity comorbidity presence: unspecified whether serious comorbidity present Body mass index: BMI 45.0-49.9 Anemia D64.9 Excessive daytime sleepiness G47.19
--- OUTSIDE RECORDS SUMMARY | 2025-04-09 11:11 | XMS_ITS | Patient Health Record ---
[facility] Address [address] [place] [address] Care Team Providers Care Cleat Blanker Name Role Phone Carmen Santiago Primary Care Provider Unavailab Risa Castellanos Unavailable [phone] Nyla Welsh Unavailable [phone] Allergies Allergen (clinical drug ingredient) Drug/Non Drug [...] Polyneuropathy due to type 2 diabetes mellitus ([id number]) Type 2 diabetes mellitus with diabetic polyneuropathy (E11.42) Active confirmed Vital Signs Blood pressure diastolic 70 mm Hg 03/13/2025 Height 4ft 11in in 03/13/2025 Blood pressure systolic 160 mm Hg 03/13/2025 Weight 235 lbs 03/13/2025 BMI 47.46 kg/m2 03/13/2025 Encounters Encounter Location Date Provider Diagnosis [address] [address] 04/11/2024 Risa Chen Type 2 diabetes mellitus with diabetic polyneuropathy E11.42 and Xerosis of skin L85.[address] [address] 06/30/2024 Risa Chen Type 2 diabetes mellitus with diabetic polyneuropathy E11.42 and Xerosis of skin L85.[address] [address] 09/13/2024 Risa Chen Type 2 diabetes mellitus with diabetic polyneuropathy E11.42 ; Xerosis of skin L85.3 ; Other hammer toe(s) (acquired), right foot M20.41 and Other hammer toe(s) (acquired), left foot M20.[address] [address] 12/07/2024 Nyla Welsh Type 2 diabetes mellitus with diabetic polyneuropathy E11.[address] [address] 03/13/2025 Risa Chen Type 2 diabetes mellitus [...] Details Provider Name:Risa singh, 05/29/2025 11:00:00 AM, [address] [place] [address], [id number], Insurance Providers Payer Name Payer Address Payer Phone Subscriber Number Group Number Insured Name Patient Relationship to Insured Coverage Start Date Coverage End Date [facility] [employer] Claims [address] [place] [address] [id number] Karon Howard Self - patient is the insured Medical (General) History Medical History History ICD Code Arthritis asthma type I diabetes Headaches High blood pressure Cataracts Joint implants/screws Cholesterol Surgical History Surgery Date(Month/Year) cataract removal 06/2024
--- OUTSIDE RECORDS SUMMARY | 2025-04-09 11:11 | XMS_ITS | Patient Health Record ---
Demographics Address [address] [place] [address] Mobile Preferred Language Unknown Marital Status Unknown Anabaptism Affiliation Unknown Race Ethnic Group or Author Organization [facility] Address [address] [place] [address] Care Team Providers Care Forming Tube Selector Name Role Phone Tyson Cam NP Primary Care Provider Celso Zepeda Unavailable [phone] Allergies Allergen (clinical drug ingredient) Drug/Non Drug [...] Problem Status W/U Status Risk Notes Problem [id number] Encounter for screening for malignant neoplasm of colon (Z12.11) Active confirmed Problem [id number] History of adenomatous polyp of colon (Z86.010) Active confirmed Problem [id number] Irritable bowel syndrome without diarrhea (K58.9) Active confirmed Problem [id number] Abdominal pain, left upper quadrant (R10.12) Active confirmed Plan Of Treatment Future Test Test Name Order Date COLONOSCOPY 05/23/2013 COLONOSCOPY 08/03/2019 Insurance Providers Payer Name Payer Address Payer Phone Subscriber Number Group Number Insured Name Patient Relationship to Insured Coverage Start Date Coverage End Date [facility] [address] [place] [address] [id number] BELKIS SAMPSON Self - patient is the insured Medical (General) History Medical History History ICD Code Migraines Asthma Hypertension Back pain DM Denies OR,CVA,renal disease GERD--EGD 09/2012 with mild g astritis and H.pylori--the H. pylori has not been treated Neg. abd U/S in 09/2012 Colonoscopy 2004 was negativ e; Colonoscopy in 07/2013-1 tubular adenoma removed Hyperlipidemia IBS--chronic LUQ discomfort Kidney stones Surgical History Surgery Date(Month/Year) tubal ligation eye surgery left knee replacement--Dr. Craft 04/30 14
--- OUTSIDE RECORDS SUMMARY | 2025-04-09 11:11 | XMS_ITS | Encounter Summary ---
Author Organization [employer] Address [address] [place] [address] [address] [place] [address] Care Team Providers Care Water Plant Operator Name Role Phone Amina Nieves MD Primary Care Provider [phone] Reason for Referral * Consultation (Routine) - Authorized Specialty Diagnoses / Procedures Referred By Contac t Referred To Contact Pharmacy Diagnoses HTN (hypertension) Amina Nieves MD [address] [place] [address] Phone: tel: fax: Referral ID Status Reason Start Date Expiration Date Visits Requested Visits Authorized [id number] Authorized Continuity of Care 10/25/2024 10/25/2025 6 6 Encounter Details Date Type Department Care Team (Late st Contact Info) Description 10/25/2024 Orders Only [facility] [address] [place], [place] [phone] Amina Nieves MD [address] [place], [place] [phone] HTN (hypertension) (Primary Dx) Social History Tobacco [...] documented as of this encounter Care Teams Water Plant Operator Relationship Specialty Start Date End Date Amina Nieves MD [address] [place] [address] PCP - General Family Medicine 04/07/21 documented as of this encounter
--- OUTSIDE RECORDS SUMMARY | 2025-04-09 11:11 | XMS_ITS | Encounter Summary ---
Author Organization [employer] Address [address] [place] [address] [address] [place] [address] Care Team Providers Care Classroom Technology Coach Name Role Phone Amina Nieves MD Primary Care Provider [phone] Encounter Details Date Type Department Care Team (Late st Contact Info) Description 10/26/2024 Telephone [facility] [address] [place], [place] [phone] Amina Nieves MD [address] [place], [place] [phone] Social History Tobacco Use Types Packs/Day Years [...] documented as of this encounter Care Teams Classroom Technology Coach Relationship Specialty Start Date End Date Amina Nieves MD [address] [place] [address] PCP - General Family Medicine 04/07/21 documented as of this encounter
--- OUTSIDE RECORDS SUMMARY | 2025-04-09 11:12 | XMS_ITS | Encounter Summary ---
Author Organization [employer] Address [address] [place] [address] [address] [place] [address] Care Team Providers Care Ore Roaster Name Role Phone Amina Nieves MD Primary Care Provider [phone] Reason for Visit * Reason Comments Med Refill Encounter Details Date Type Department Care Team ([facility] st Contact Info) Description 05/07/2023 Refill [facility] [address] [place], [place] [phone] Amina Nieves MD [address] [place], [place] [phone] Rash Social History Tobacco Use Types Packs/Day [...] documented as of this encounter Care Teams Ore Roaster Relationship Specialty Start Date End Date Amina Nieves MD [address] [place] [address] PCP - General Family Medicine 04/07/21 documented as of this encounter
--- OUTSIDE RECORDS SUMMARY | 2025-04-09 11:12 | XMS_ITS | Clinical Summary ---
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 Remove & discard patch within 12 hours or as directed by . 60 patch 2 2024 Active Aspirin EC Adult Low Dose 81 MG EC tabletIndications :Type 2 diabetes mellitus with diabetic neuropathy, unspecified (HCC) TAKE 1 TABLET BY MOUTH EVERY MORNING 90 tablet 3 2024 Active montelukast (Singulair) 10 MG tabletIndications :Allergic rhinitis, unspecified seasonality, unspecified trigger TAKE 1 TABLET BY MOUTH EVERY MORNING FOR ALLERGIES 90 tablet 3 2024 Active Blood Glucose Monitoring Suppl ([employer] Lite) w/Device kitIndications:Ty pe 2 diabetes mellitus with diabetic neuropathy, without long-term current use of insulin ([facility]) Use to test blood sugar two times daily 1 kit 2024 Active loratadine (Claritin) 10 MG tablet Take 1 tablet (10 mg) by mouth Once per day. 90 tablet 3 10/20 Active prednisoLONE acetate (Pred-Forte) 1 % ophthalmic suspension 2024 Active D3 Super Strength 50 MCG (1999 [...] constipation MIX DIRECTED AND TAKE DIRECTED BY [facility] 2024 Active ferrous gluconate (Fergon) 324 (38 Fe) MG tabletIndications :Iron deficiency anemia, unspecified iron deficiency anemia type Take 1 pill every Wednesday, Wednesday, and Wednesday. Take with a full glass of water or Vit C containing juice, and ideally 1 hour before a meal or 2 hours after a meal 36 tablet 2024 Active Tirzepatide (Mounjaro) 2.5 MG/0.5ML solution auto-injectorIndi cations:Type 2 diabetes mellitus with diabetic neuropathy, without long-term current use of insulin (HCC) Inject 2.5 mg under the skin 1 [...] of candidiasis. Do not swallow. 12 g 03/23 Active clobetasol (Temovate) 0.05 % ointment APPLY TOPICALLY TWICE DAILY 30 g 3 2024 Active 7 Day Vaginal 2 % vaginal creamIndications: Vaginal itching INSERT ONE APPLICATORFUL VAGINALLY AT BEDTIME FOR 7 DAYS. 45 g 2024 Active meclizine (Antivert) 25 MG tabletIndications :Dizziness TAKE 1 TABLET BY MOUTH THREE TIMES DAILY NEEDED FOR DIZZINESS 60 tablet 3 2024 Active simethicone (Mylicon) 125 MG chewable [...] HORA DE DORMIR 03/19 Discontinued( Therapy completed) Dentiuc-Llhomoy-F ethyl Elvin (Salonpas) 3.1-6-10 % patch APPLY [...] 10 mL 1 03/23 Discontinued( Therapy completed) meclizine (Antivert) 25 MG tabletIndications :Dizziness TAKE 1 TABLET BY MOUTH THREE TIMES DAILY NEEDED FOR DIZZINESS 60 tablet 3 04/05 Discontinued cyclobenzaprine (Flexeril) 5 MG tabletIndications :Leg cramps [...] 30 each 03/23 Discontinued( Therapy completed) Nyamyc [id number] UNIT/GM powderIndications :Skin candidiasis APPLY TOPICALLY TO [...] needed for constipation from medications, instructions in maori 10 tablet 03/29 acetaminophen (Tylenol) 325 MG [...] Hematuria 03/12/2023 Pilar cysts 03/12/2023 Severe obesity (CMS/HCC) 03/12/2023 Weakness 03/12/2023 Endometrial adenocarcinoma (CMS/HCC) 12/30/2022 Overview (12/30/2022): Adenocarcinoma, Endometrioid, FIGO grade 2 diagnoed on endometrial biopsy with Dr. Ying 01/2023 - referred to [facility] by Dr. Ying with Dr. 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 removed uterus 01/2023 F/u q 6 months [...] Encounters Date Type Department Care Team Description 04/05/2025 Refill [facility] [address] [place], [place] [phone] Amina Nieves MD Dizziness 04/02/2025 Orders Only GENERIC EXTERNAL DATA DEPARTMENT Provider, Generic External Data 03/29/2025 Refill [facility] [address] [place], [place] [phone] Amina Nieves MD Vaginal itching 03/24/2025 Refill [facility] [address] [place] [phone] Amina Nieves MD 03/23/2025 9:00 AM EDT Office Visit [facility] [address] [place] [address] [phone] Amina Nieves MD Type 2 diabetes mellitus with diabetic neuropathy, without long-term current use of insulin ([facility]) (Primary Dx); Iron deficiency anemia, unspecified iron deficiency anemia type; Mitral valve stenosis, unspecified etiology; Primary hypertension; Hypercholesterolemia; Severe obesity ([facility]); Gastroesophageal reflux disease, unspecified whether esophagitis present; Irritable bowel syndrome with constipation; Right kidney stone; Endometrial adenocarcinoma ([facility]); Localized osteoarthritis of right knee; Polyneuropathy due to type 2 diabetes mellitus ([facility]); Obstructive sleep apnea; Mild intermittent asthma without complication 03/23/2025 Travel 03/22/2025 Telephone [facility] [address] [place] [phone] Amina Nieves MD chart prep 03/19/2025 9:20 AM EDT Office Visit [facility] [address] [place] [phone] Terri Kruse NP Right kidney stone (Primary Dx); Low back pain, unspecified back pain laterality, unspecified chronicity, unspecified whether sciatica present; Drug-induced constipation 03/19/2025 Travel 03/19/2025 Refill [facility] [address] [place] [address] Amina Nieves MD 03/14/2025 Orders Only GENERIC EXTERNAL DATA DEPARTMENT Provider, Generic External Data 02/27/2025 Orders Only GENERIC EXTERNAL DATA DEPARTMENT Provider, Generic External Data 02/26/2025 Refill [facility] [address] [place] [address] Amina Nieves MD 02/14/2025 Refill [facility] [address] [place] [address] 31205 Amina Nieves MD 01/29/2025 Orders Only [facility] [address] [place] [phone] Amina Nieves MD 01/26/2025 Telephone [facility] [address] [place] [address] Amina Nieves MD No Show 01/25/2025 Telephone [facility] [address] [place] [address] Amina Nieves MD Chart prep 01/18/2025 Refill [facility] [address] [place] [address] Jhoana Worrell, DO 01/18/2025 Refill [facility] [address] [place] [address] Amina Nieves MD 01/08/2025 Refill [facility] [address] [place] [address] Amina Nieves MD Skin candidiasis from Last [...] Procedure Name Priority Date/Time Associated Diagnosis Comments FL GUIDANCE IN OR Routine 04/02/2025 3:4 2 PM EDT GROSS EXAM WITHOUT SLIDES Routine 04/02/2025 3:36 PM EDT GLUCOSE, WHOLE BLOOD Routine 04/02/2025 2:04 PM EDT RETICULOCYTE COUNT Routine 03/23/2025 10 :01 AM EDT Iron deficiency anemia, unspecified iron deficiency anemia type POCT GLUCOSE Routine 03/23/2025 9:17 AM EDT Type 2 diabetes mellitus with diabetic neuropathy, without long-term current use of insulin (CMS/HCC) POCT URINALYSIS DIPSTICK Routine 03/19/2025 9:07 AM [...] neuropathy, without long-term current use of insulin ([facility]) COLONOSCOPY Routine 10/18/2019 from Last 3 Months or Most Recently Relevant to Health Maintenance Results * FL Guidance in OR (04/02/2025 3:42 PM EDT) Anatomical Region Laterality Modality X-Ray Angiograph y 04/02/2025 3:42 PM EDT Narrative 04/03/2025 8:17 AM EDT [address] [address] Fluoroscopy Report Signed Patient: Karon Nur MR#: [id number] : 1955 Acct:[id number] Age/Sex: 69 / F ADM Date: 04/02/25 Loc: [facility] Attending Dr: Isaiah Navarrete MD Ordering Physician: Isaiah Navarrete MD Date of Service: 04/02/25 Procedure(s): FL guidance in OR Accession Number(s): [id number] cc: Isaiah Navarrete MD; Amina Nieves Reason for Exam: stone right EXAMINATION: XR FLUOROSCOPY WITH IMAGES CLINICAL INFORMATION: Retrograde right ureteroscopy for calculus. COMPARISON: CT abdomen and pelvis 03/15/2025 TECHNIQUE: Fluoroscopy provided to: Dr. Navarrete Fluoroscopy time: 33 seconds DAP: 264.3 uGycm2 Images: 2 FINDINGS: 2 fluoroscopic spot images obtained during the retrograde right ureteroscopy and stent placement. Please refer to the full operative report for details. FL/FL guidance in OR IMPRESSION: Fluoroscopic guidance. Electronically signed by: Sam Lemon MD 04/03/2025 08:15 AM EDT Dictated By: Sam Lemon MD Signed By: <Electronically signed by aSm Lemon MD in OV> 04/03/25 0815 DD/ 1542 TD/TT: 04/02/25 1615 Marketing Strategy Analyst: Procedure Note Donotuseinterpreter, Image - 04/03/[address] [place] [address] Fluoroscopy Report Signed Patient: Ron Nur#: [id number] : 1955cct:[id number] Age/Sex: 69 / FADM Date: 04/02/25 Loc: [facility].SSS Attending Dr: Isaiah Navarrete MD Ordering Physician: Isaiah Navarrete MD Date of Service: 04/02/25 Procedure(s): FL guidance in OR Accession Number(s): [id number] cc: Isaiah Navarrete MD; Amina Nieves Reason for Exam: stone right EXAMINATION: XR FLUOROSCOPY WITH IMAGES CLINICAL INFORMATION: Retrograde right ureteroscopy for calculus. COMPARISON: CT abdomen and pelvis 03/15/2025 TECHNIQUE: Fluoroscopy provided to: Dr. Navarrete Fluoroscopy time: 33 seconds DAP: 264.3 uGycm2 Images: 2 FINDINGS: 2 fluoroscopic spot images obtained during the retrograde right ureteroscopy and stent placement. Please refer to the full operative report for details. FL/FL guidance in OR IMPRESSION: Fluoroscopic guidance. Electronically signed by: Sam Lemon MD 04/03/2025 08:15 AM EDT Dictated By: Sam Lemon MD Signed By: <Electronically signed by Sam Lemon MD in OV> 04/03/25 0815 DD/ 1542 TD/TT: 04/02/25 1615 Marketing Strategy Analyst: [facility] External Provider IMG IR PROCEDURES Final Result * Gross Exam without slides (04/02/2025 3:36 PM EDT) 04/02/2025 3:36 PM EDT 04/02/2025 3:46 PM EDT [facility] - 04/04/2025 9:30 AM EDT ----- ------- Name: Karon Nur Age/Sex: 69/F [facility] 1955 [id number] [id number] Attend Dr: Isaiah Navarrete MD Re04/02/25 Status: [facility] Location: [facility] Disch: ----- ------- SPEC : [id number] RECD: 04/02/25 STATUS: MARGARET ISAIASAra NUM: [id number] JERROD: 04/02/[address] [facility] [address]: Isaiah Navarrete MD ENTERED: 04/02/25 SP TYPE: Surgical OTHR DR: Amina Nieves ORDERED: GO Diagnosis Kidney stone, removal: Calculous material (gross diagnosis only); crystallographic stone analysis to follow. Clinical History Kidney stone Microscopic Description No microscopic exam performed. Material Received Kidney stone Gross Description Received fresh labeled kidney stone is an irregular, cylindrical yellow-white calculi measuring 1.0 x 0.5 x 0.4 cm. Also received is a rounded yellow james calculi measuring 0.3 cm in diameter. The specimen is entirely submitted to [facility] for chemical analysis. No sections taken. ([facility]) IHC S/NG Disclaimer NOTE: Unless otherwise stated, all tissue is formalin-fixed and paraffin-embedded. Some or all of the immunohistochemical tests reported herein may have been developed and their performance characteristics determined by [facility]. They have not been cleared or approved by the U.S. Food and Drug Administration (FDA). However, the FDA has determined that such clearance or approval is not necessary. This laboratory is certified under the Clinical Laboratory Improvement Amendments of 1988 (CLIA) as qualified to perform high complexity clinical laboratory testing. Copies To: Isaiah Navarrete MD [facility] [address] [place] [address] CONTINUED ON NEXT PAGE ----- ------- Name: Karon Nur Age/Sex: 69/F : 1955 Unit#: [id number] Attend Dr: Isaiah Navarrete MD Re04/02/25 Status: [facility] Location: [facility] Disch: ----- ------- SPEC : [id number] RECD: 04/02/25 STATUS: MARGARET SYEDA NUM: [id number] JERROD: 04/02/[address] [facility] [address]: Isaiah Navarrete MD ENTERED: 04/02/25 SP TYPE: Surgical OTHR DR: Amina Nieves ORDERED: GO Copies To: (Continued) Amina Nieves [address] [place] [phone] ----- ------- Signed (signature on file) Sobia Huynh MD 04/04/25 0930 ----- ------- END OF REPORT [employer] External Data Provider LAB BLOOD ORDERAB LES Final Result Performing Organization Address [facility] [[email or web address]] de Phone Number [facility] [address] [place] [phone] * (ABNORMAL) Glucose, Whole Blood (04/02/2025 2:04 PM EDT) Pathologist [facility] Glucose, Whole Blood 176(H) 60 - 115 mg/dL [facility] Comment:METER #: [id number] 04/02/2025 2:04 PM EDT 04/02/2025 2:10 PM EDT [employer] External Data Provider LAB BLOOD ORDERAB LES Final Result Performing Organization Address [facility] de Phone Number [facility] [address] [place] [phone] * (ABNORMAL) Reticulocyte Count (03/23/2025 10:01 AM EDT) [facility] Reticulocytes Absolute 0.100(H) 0.026 - 0.095 X10*6/uL [facility] Immature Retic Fraction 21.8(H) 3.0 - 15.9 % [facility] Retic HGB Equivalent 29.2(L) 30.0 - 35.0 pg [facility] Reticulocyte Percent 2.4(H) 0.5 - 1.8 % [facility] Blood Venous blood specimen / Unknown 03/23/2025 10:01 AM EDT 03/23/2025 11:11 AM EDT us Amina Nieves MD LAB BLOOD ORDERABLES Final Res ult [facility] [address] [place] [address] [phone] * (ABNORMAL) POCT Glucose (03/23/2025 9:17 [...] UA Ok Urine 03/19/2025 9:07 AM EDT Terri Kruse NP POINT OF CARE TEST ENTER/EDIT OR DERABLES Final Result * CT Abdomen Pelvis w/o Contrast (03/15/2025 12:48 AM EDT) Anatomical Region Laterality Modality Body, Pelvis, Abdomen Computed T omography 03/15/2025 12:4 8 AM EDT Narrative 03/15/2025 12:50 AM EDT [address] [address] [address] Scan Report Signed Patient: Karon Nur MR#: [id number] : 1955 Acct:[id number] Age/Sex: 69 / F ADM Date: 03/14/25 Loc: [facility].ED Attending Dr: Ordering Physician: Shahnaz Varghese MD Date of Service: 03/15/25 Procedure(s): CT abdomen pelvis wo IV con Accession Number(s): [id number] cc: Amina Nieves; Shahnaz Varghese MD Report Number: [id number]: Total DLP = 978.00 mGy-cm Reason for Exam: right flank pain CLINICAL HISTORY: right flank pain CT abdomen and pelvis without contrast Comparison: CT/REG/VT/SR - CT ABDOMEN PELVIS W IV CON [...] gastrointestinal tract is unremarkable. There is a nwnjc-gx-hiaibojz sized fat containing umbilical hernia. There are [...] MD in OV> 03/15/2547 DD/ TD/TT: 03/15/2547 Marketing Strategy Analyst: Procedure Note Donotuseinterpreter, Image - 03/15/[address] [place] [address] CT Scan Report Signed Patient: Ron Nur#: [id number] : 1955cct:[id number] Age/Sex: 69 / FADM Date: 03/14/25 Loc: HO.ED Attending Dr: Ordering Physician: Shahnaz Varghese MD Date of Service: 03/15/25 Procedure(s): CT abdomen pelvis wo IV con Accession Number(s): [id number] cc: Amina Nieves; Shahnaz Varghese MD Report Number: [id number]: Total DLP = 978.00 mGy-cm Reason for Exam: right flank pain CLINICAL HISTORY: right flank pain CT abdomen and pelvis without contrast Comparison: CT/REG/VT/SR - CT ABDOMEN PELVIS W IV CON [...] gastrointestinal tract is unremarkable. There is a npzmr-ly-gkqgavip sized fat containing umbilical hernia. There are [...] MD in OV> 03/15/2547 DD/ TD/TT: 03/15/2547 Marketing Strategy Analyst: [facility] External Provider IMG CT PROCEDURES Final Result * (ABNORMAL) Urinalysis, Complete, with Reflex to Culture (03/14/2025 10:50 PM EDT) Color Urine Yellow [facility] Appearance Urine Clear [facility] PH 5.5 5.0 - 9.0 [facility] Glucose Urine UA >=1000(A) Negative mg/dL [facility] Urine Blood Moderate (2+)(A) Negative [facility] Specific Thornton - Urine 1.025 1.005 - 1.025 [facility] Urine Protein Trace Neg-Trace mg/dL [facility] Urine Ketones Negative Negative mg/dL [facility] Nitrite Urine Negative Negative [facility] Leukocyte Esterase Urine Negative Negative [facility] RBC Urine 11-20(A) 0 - 2 /HPF [facility] Urine WBC 0-5 0 - 5 /HPF [facility] Urine Squamous Epithelial Cell 0-2 0 - 2 /HPF [facility] Urine Bacteria None Seen None Seen [facility] Hyaline Casts, Urine 0-2 0 - 2 /LPF [facility] 03/14/2025 10:5 0 PM EDT 03/14/2025 10:53 PM EDT Narrative [facility] - 03/14/2025 11:17 PM EDT Urine, Clean Catch Generic External Data Provider LAB URINE ORDERAB LES Final Result [facility] [address] [place] [phone] * (ABNORMAL) CBC auto differential (03/14/2025 8:52 PM EDT) White Blood Count 9.5 4.8 - 10.8 X10*3/uL [facility] Red Blood Count 4.25 4.20 - 5.50 X10*6/uL [facility] Hemoglobin 11.7(L) 12.0 - 16.0 g/dl [facility] Hematocrit 33.9(L) 37.0 - 47.0 % [facility] Mean Corpuscular Volume 79.8(L) 80.0 - 98.0 fL [facility] Mean Corpuscular Hemoglobin 27.5 27.0 - 33.0 pg [facility] Mean Corpuscular HGB Conc 34.5 31.0 - 35.0 g/dl [facility] Red Cell Distribution Width 14.2 11.0 - 16.0 % [facility] Platelet Count 244 160 - 400 X10*3/uL [facility] Mean Platelet Volume 11.9 9.4 - 12.3 fL [facility] Neutrophils Percent Auto 78.3(H) 45 - 73 % [facility] Imm Gran Pct Auto 0.2 0.0 - 0.4 % [facility] Lymphocytes Percent Auto 14.4(L) 20 - 40 % [facility] Monocytes Percent Auto 5.8 2 - 11 % [facility] Eosinophils Percent Auto 1.0 0 - 4 % [facility] Basophils Percent Auto 0.3 0 - 2 % [facility] NRBC Pct Auto 0.0 0.0 - 0.2 /100WBC [facility] Neutrophils Absolute Auto 7.4 2.0 - 8.3 x10*3/uL [facility] Imm Gran Abs Auto 0.02 0.00 - 0.03 X10*3/uL [facility] Lymphocytes Absolute Auto 1.4 1.2 - 4.9 X10*3/uL [facility] Monocytes Absolute Auto 0.6 0.1 - 1.2 X10*3/uL [facility] Eosinophils Absolute Auto 0.1 0.0 - 0.4 X10*3/uL [facility] Basophils Absolute Auto 0.0 0.0 - 0.2 X10*3/uL [facility] NRBC Abs Auto 0.000 0.0 - 0.012 X10*3/uL [facility] 03/14/2025 8:52 PM EDT 03/14/2025 8:57 PM EDT us Generic External Data Provider LAB BLOOD ORDERAB LES Final Result Performing Organization Address City/[facility]/ZIP Co de Phone Number [facility] [address] [place] [phone] [phone] * Lipase (03/14/2025 8:52 PM EDT) Lipase 36 8 - 78 U/L [facility] 03/14/2025 8:52 PM EDT 03/14/2025 8:57 PM EDT Generic External Data Provider LAB BLOOD ORDERAB LES Final Result Performing Organization Address [facility] Co de Phone Number [facility] [address] [place] [phone] [phone] * (ABNORMAL) Comprehensive Metabolic Panel (03/14/2025 8:52 PM EDT) Sodium 136 135 - 145 mmol/L [facility] Potassium 4.0 3.3 - 5.1 mmol/L [facility] Chloride 104 96 - 108 mmol/L [facility] Carbon Dioxide 23 22 - 29 mmol/L [facility] Anion Gap 13 12 - 20 [facility] Urea Nitrogen (BUN) 21(H) 9 - 16 mg/dL [facility] Creatinine, Serum 1.24 0.5 - 1.4 mg/dL [facility] Creatinine Clr Calc Pharmacy 45.2 [facility] Comment:Provided height and weight: 149.86 cm,107.5 kg.eGFR (calculated from the MDRD study equation) and eCrCl(calculated from the Cockcroft-Gault equation) are based ondifferent parameters and may not yield comparable results.If eCrCl result is absurd, please check patient'sheight/weight. Estimated Glomerular Filt Rate 43 [facility] Comment:Chronic Kidney Disea se: Estimated GFR < 60 mL/min/1.71x2Gczvfc Kidney Disease: Estimated GFR < 15 mL/min/1.73m2 Glucose 349(H) 60 - 115 mg/dL [facility] Calcium 9.8 8.4 - 10.2 mg/dL [facility] Bilirubin, Total 0.6 0.0 - 1.0 mg/dL [facility] Aspartate Amino Transferase 27 5 - 31 U/L [facility] Alanine Aminotransferase 35(H) 0 - 31 U/L [facility] Total Protein 7.2 6.5 - 8.0 g/dL [facility] Albumin Level 4.2 3.5 - 5.0 g/dL [facility] Alkaline Phosphatase 121(H) 39 - 117 U/L [facility] 03/14/2025 8:52 PM EDT 03/14/2025 8:57 PM EDT us Generic External Data Provider LAB BLOOD ORDERAB LES Final Result [facility] [address] [place] [phone] * (ABNORMAL) Hemoglobin A1c (02/27/2025 7:59 AM EDT) Hemoglobin A1c 9.1(H) <6.0 % [facility] Comment:Hemoglobin A1C Refer ence Range Adults: 4.8 - 6.0 % Non diabetic: < 6.0 % Goal: < 7.0 %Additional Action Suggested: > 8.0 %Note: Hemoglobin A1c results are invalid for patients with abnormal amounts of HbF. Blood transfusions may impact the HbA1c concentration in the patient sample. Estimated Average Glucose 214 mg/dL [facility] Comment:eAG = Estimated ave rage glucose which is %A1C expressed asaverage glucose, using the formula of the V7S-TpxlpooUnaluxx Glucose study (ADAG), Diabetes Care, Vol.31,#8,2007 02/27/2025 7:59 AM EDT 02/27/2025 7:59 AM EDT us Generic External Data Provider LAB BLOOD ORDERAB LES Final Result Performing Organization Address [facility] Co de Phone Number [facility] [address] [place] [phone] * (ABNORMAL) Hepatic Function Panel (02/27/2025 7:59 AM EDT) Bilirubin, Total 0.7 0.0 - 1.0 mg/dL [facility] Bilirubin, Direct 0.2 0.0 - 0.5 mg/dL [facility] Aspartate Amino Transferase 30 5 - 31 U/L [facility] Alanine Aminotransferase 36(H) 0 - 31 U/L [facility] Total Protein 7.3 6.5 - 8.0 g/dL [facility] Albumin Level 4.4 3.5 - 5.0 g/dL [facility] Alkaline Phosphatase 118(H) 39 - 117 U/L [facility] 02/27/2025 7:59 AM EDT 02/27/2025 7:59 AM EDT Generic External Data Provider LAB BLOOD ORDERAB LES Final Result Performing Organization Address [facility] Co de Phone Number [facility] [address] [place] [phone] * BI Mammogram Screening Tomosynthesis Bilateral (01/29/2025 8:15 AM EDT) Anatomical Region Laterality Modality Breast Bilateral Mammography 01/29/2025 8:15 AM EDT Narrative 02/05/2025 5:09 PM EDT [facility] [address] [place] [address] Mammography Report Signed Patient: Karon Nur MR#: [id number] : 1955 Acct:[id number] Age/Sex: 69 / F ADM Date: 01/29/25 Loc: HO.MAMMO Attending Dr: mAina Nieves MD Ordering Physician: Ezequiel,Amina Results: 1Negative Date of Service: 01/29/25 Follow Up: 1 Year From Orig ina Mammogram Procedure(s): MM tomosynthesis screening BI Accession Number(s): [id number] cc: Amina Nieves EXAMINATION: MM SCREENING DIGITAL [...] 02/05/25 1705 DD/ 0815 TD/TT: 01/29/25 0830 Marketing Strategy Analyst: Procedure Note Donotuseinterpreter, Image - 02/05/2025 [facility] [address] [place], [place] [address] Mammography Report Signed Patient: Ron Nur#: [id number] : [id number] Age/Sex: 69 / FADM Date: 01/29/25 Loc: HO.MAMMO Attending Dr: Amina Nieves MD Ordering Physician: Nicole Nievesults: 1Negative Date of Service: 01/29/25Follow Up: 1 Year From Orig ina Mammogram Procedure(s): MM tomosynthesis screening BI Accession Number(s): [id number] cc: Amina Nieves EXAMINATION: MM SCREENING DIGITAL [...] 02/05/25 1705 DD/ 0815 TD/TT: 01/29/25 0830 Marketing Strategy Analyst: Amina Nieves MD IM BI PROCEDURES Final Result * (ABNORMAL) Lipid Panel with Reflex to Direct LDL (10/10/2024 7:54 AM EDT) Triglycerides 248(H) <150 mg/dL [facility] Comment:Desirable Triglyceri de: less than 150 mg/dLBorderline High Triglyceride 150-199 mg/dLHigh Triglyceride: 200-499 mg/dLVery High Triglyceride: greater than or equal to 5OO mg/dL Cholesterol 207(H) <200 mg/dL [facility] Comment:Desirable Cholestero l: less than 200 mg/dLBorderline High Cholesterol: 200-239 mg/dLHigh Cholesterol: greater than 239 mg/dL LDL Cholesterol Calculated 116(H) <100 mg/dL [facility] Comment:Desirable LDL: less than 100 mg/dLNear Optimal/Above Optimal LDL: 110- 129 mg/dLBorderline High LDL: 130-159 mg/dLHigh LDL: 160-189 mg/dLVery High LDL: greater than or equal to 190 mg/dL HDL Cholesterol 42 >40 mg/dL [facility] Comment:Desirable HDL: great er than 40 mg/dL Note: This HDL assay may give artificially low results in patients with liver disease. 10/10/2024 7:54 AM EDT 10/10/2024 7:54 AM EDT us Generic External Data Provider LAB BLOOD ORDERAB LES Final Result Performing Organization Address City/[facility]/ZIP Co de Phone Number [facility] [address] [place] [phone] * Albumin, Random Urine W/Creatinine (05/25/2024 9:46 AM EST) Creatinine, Urine 85.32 mg/dL [facility] Microalbumin Urine 23.0 mg/L [facility] Microalbum Creatinine Ratio Ur 26.9 <30 ug/mg cr [facility] Comment:Albumin/Creatinine R atio Reference Ranges: Normal: < 30 ug/mg creatinine Microalbuminuria: 30 - 300 ug/mg creatinineClinical Albuminuria: > 300 ug/mg creatinine Urine (Urine, Random) 05/25/2024 9:46 AM EST 05/25/2024 11:28 AM EST us Amina Nieves MD LAB URINE ORDERABLES Final Res ult [facility] [address] [place] [phone] * Hepatitis C Antibody with Reflex to HCV, RNA, Quantitative, Real-Time PCR (05/25/2024 9:46 AM EST) Hepatitis C Antibody Nonreactive Nonreactive [facility] Comment:Antibodies to HCV no t detected; does not exclude early acuteHCV infection. Blood Venous blood specimen / Unknown 05/25/2024 9:46 AM EST 05/25/2024 10:53 AM EST Amina Nieves MD LAB BLOOD ORDERABLES Final Res ult [facility] [address] [place] [address] [phone] * (ABNORMAL) Colonoscopy (10/18/2019) Colonoscopy Abnormal(A ) Normal Historical Provider HEALTH MAINTENANCE Edited Result - Final from Last 3 Months or Most Recently Relevant to Health Maintenance Insurance [facility] [employer] (O D-SNP) [place] [id number] * Guarantor: Karon Nur Account Type Relation to Patient Date of Phone Billing Address Personal/Family Self [address] [place] [address] Care Teams Arc Welder Apprentice Relationship Specialty Start Date End Date Aimna Nieves MD [address] [place] [phone] PCP - General Family Medicine 04/07/21
--- OUTSIDE RECORDS SUMMARY | 2025-04-09 11:12 | XMS_ITS | Encounter Summary ---
Author Organization [email or web address] Address [address] [place] [address] [address] [place] [address] Care Team Providers Care Business Planning Director Name Role Phone Amina Nieves MD Primary Care Provider [phone] Reason for Visit * Reason Comments Med Refill Encounter Details Date Type Department Care Team ([facility] st Contact Info) Description 01/23/2023 Refill [facility] MEDICINE [address] [place] [address] Amina Nieves MD [address] [place] [address] Social History Tobacco Use Types Packs/Day Years [...] as of this encounter Care Teams Business Planning Director Relationship Specialty Start Date End Date Amina Nieves MD [address] [place] [address] PCP - General Family Medicine 04/07/21 documented as of this encounter
--- OUTSIDE RECORDS SUMMARY | 2025-04-09 11:12 | XMS_ITS | Encounter Summary ---
Author Organization [employer] Address [address] [place] [address] [address] [place] [address] Care Team Providers Care General Farm Manager Name Role Phone Amina Nieves MD Primary Care Provider [phone] Reason for Visit * Reason Comments Med Refill Encounter Details Date Type Department Care Team ([facility] st Contact Info) Description 06/01/2024 Refill [facility] MEDICINE [address] [place], [place] [phone] Jhoana Worrell DO [address] [place], [place] [phone] Social History Tobacco Use Types Packs/Day Years [...] documented as of this encounter Care Teams General Farm Manager Relationship Specialty Start Date End Date Amina Nieves MD [address] [place] [phone] PCP - General Family Medicine 04/07/21 documented as of this encounter
--- OUTSIDE RECORDS SUMMARY | 2025-04-09 11:12 | XMS_ITS | Encounter Summary ---
Author Organization [employer] Address [address] [place] [address] [address] [place] [address] Care Team Providers Care Hotel Or Motel Manager Name Role Phone Amina Nieves MD Primary Care Provider [phone] Reason for Visit * Reason Comments Med Refill Encounter Details Date Type Department Care Team ([facility] st Contact Info) Description 04/05/2025 Refill [facility] [address] [place], [place] [phone] Amina Nieves MD [address] [place] [address] Dizziness Social History Tobacco Use Types Packs/Day [...] documented as of this encounter Care Teams Hotel Or Motel Manager Relationship Specialty Start Date End Date Amina Nieves MD [address] [place] [phone] PCP - General Family Medicine 04/07/21 documented as of this encounter
--- OUTSIDE RECORDS SUMMARY | 2025-04-09 11:12 | XMS_ITS | Encounter Summary ---
Author Organization [employer] Address [address] [place] [address] [address] [place] [address] Care Team Providers Care Lease Administrator Name Role Phone Amina Nieves MD Primary Care Provider [phone] Encounter Details Date Type Department Care Team (Late st Contact Info) Description 01/26/2024 Orders Only [facility] MEDICINE [address] [place], [place] [phone] Amina Nieves MD [address] [place], [place] [phone] Social History Tobacco Use Types Packs/Day Years [...] documented as of this encounter Care Teams Lease Administrator Relationship Specialty Start Date End Date Amina Nieves MD [address] [place] [phone] PCP - General Family Medicine 04/07/21 documented as of this encounter
--- OUTSIDE RECORDS SUMMARY | 2025-04-09 11:12 | XMS_ITS | Encounter Summary ---
Author Organization [employer] Address [address] [place] [address] [address] [place] [address] Care Team Providers Care Computer Systems Manager Name Role Phone Amina Nieves MD Primary Care Provider [phone] Encounter Details Date Type Department Care Team (Late st Contact Info) Description 10/27/2022 Orders Only [facility] MEDICINE [address] [place], [place] [phone] Amina Nieves MD [address] [place], [place] [phone] Vaginal bleeding (Primary Dx); Endometrial thickening on [...] as of this encounter Care Teams Computer Systems Manager Relationship Specialty Start Date End Date Amina Nieves MD [address] [place] [address] PCP - General Family Medicine 04/07/21 documented as of this encounter
== END 2025-04-09 11:16 | disposition home or self-care (01) ==
LOC: HO.HSMS 10:04
PROVIDERS: PCP General Practice; Visit Provider Physician Assistant Medical
DX: G47.33 Obstructive sleep apnea (adult) (pediatric) (principal); E66.9 Obesity, unspecified; R45.4 Irritability and anger; E66.813 Obesity, class 3; E66.01 Morbid (severe) obesity due to excess calories; Z68.42 Body mass index [BMI] 45.0-49.9, adult; D64.9 Anemia, unspecified; G47.19 Other hypersomnia
CPT/HCPCS: 99214

== ENCOUNTER → 2025-04-09 10:03 | Outpatient (BNVA) | payer OTHER, SELFPAY | PROVIDERS: PCP General Practice; Visit Provider Physician Assistant Medical | DX: G47.33 Obstructive sleep apnea (adult) (pediatric) (principal); Z99.89 Dependence on other enabling machines and devices; E66.9 Obesity, unspecified; R45.4 Irritability and anger; D64.9 Anemia, unspecified; G47.19 Other hypersomnia; Z68.42 Body mass index [BMI] 45.0-49.9, adult; E66.813 Obesity, class 3 | CPT/HCPCS: 99212 ==

== ENCOUNTER 2025-04-12 08:27 | Outpatient (AMB) | payer OTHER, SELFPAY ==
--- OUTSIDE RECORDS SUMMARY | 2024-11-28 06:00 | XMS_ITS ---
Author Organization [facility] Address [address] [place] [address] Care Team Providers Care Vfx Artist Name Role Phone Carmen Santiago Primary Care Provider Unavailab Risa Castellanos Unavailable [phone] Yancey Encounters Encounter Location Date Provider Diagnosis [facility] [address] [place] [address] 11/28/2024 Risa Chen Plan Of Treatment Next Appt Details Provider Name:Risa singh, 05/29/2025 11:00:00 AM, [address] [place], [address], Progress Notes * Cheri ARELLANOsDOB: [birth year] (69 yo F)Acc No.[id number]:11/28/2024 Progress Note Patient: Supriya QUIROGA Karon Provider: Chuck Chen DPM :1955 A ge:69 Y S ex:Female Date:11/28/2024 Address:[address] [place] [address] [address], [place], [place] Pcp:Carmen Santiago Subjective: * Chief Complaints: * [address] Yancey. * Medical History: Objective: * Vitals: Assessment: Plan: * Treatment: * Images: * The named appointment provid er may or may not be the originator of this progress note, and it is not deemed complete until electronically signed by the appointment provider. Sign off status: Pending * Provider: Chuck Chen DPM Date: 0 11/28/2024 Generated for Cheryl bundy/Rashard/Pedro on: 1 08:45 AM EDT
--- OUTSIDE RECORDS SUMMARY | 2025-04-12 08:45 | XMS_ITS | Encounter Summary ---
Author Organization [employer] Address [address] [place] [address] 7[address] [place] [address] Care Team Providers Care Line Haul Driver Name Role Phone Amina Nieves MD Primary Care Provider [phone] Encounter Details Date Type Department Care Team (Late st Contact Info) Description 10/26/2024 Telephone [facility] MEDICINE [address] [place], [place] [phone] Amina Nieves MD [address] [place], [place] [phone] Social History Tobacco Use Types Packs/Day Years [...] is your housing situation today? I have itm rao 10/11/[address] you [...] documented as of this encounter Care Teams Line Haul Driver Relationship Specialty Start Date End Date Amina Nieves MD [address] [place] [address] PCP - General Family Medicine 04/07/21 documented as of this encounter
--- OUTSIDE RECORDS SUMMARY | 2025-04-12 08:45 | XMS_ITS | Clinical Summary ---
Demographics Address [address] [place] [address] [address] [place] [address] Work Phone Mobile Phone Home Phone Preferred Language es Marital Status Single Samaritan Affiliation Unknown Race Other Race Ethnic Group Unknown Author Organization [employer] Address [address] [place] [address] [address] [place] [address] Care Team Providers Care Home Improvement Contractor Name Role Phone Amina Nieves MD Primary Care Provider [phone] Allergies Active Allergy Reactions Criticality Noted Date [...] 3 2024 Active Blood Glucose Monitoring Suppl ([employer] Lite) w/Device kitIndications:Ty pe 2 diabetes mellitus with diabetic neuropathy, without long-term current use of insulin ([facility]) Use to test blood sugar two times [...] constipation MIX DIRECTED AND TAKE DIRECTED BY [facility] 2024 Active ferrous gluconate (Fergon) 324 [...] HORA DE DORMIR 03/19 Discontinued( Therapy completed) Wswwcfm-Mjdagmr-N ethyl Elvin (Salonpas) 3.1-6-10 % patch APPLY [...] 30 each 03/23 Discontinued( Therapy completed) Nyamyc [id number] UNIT/GM powderIndications :Skin candidiasis APPLY TOPICALLY TO [...] needed for constipation from medications, instructions in algerian 10 tablet 03/29 acetaminophen (Tylenol) 325 MG [...] with Dr. Ying 01/2023 - referred to [facility] On[facility] by Dr. Ying with Dr. Rodriguez at [facility] inf[facility] attendant Oncology on 01/14/2023 at 10:00. -CT scan [...] Assessment & Plan (12/23/2023 2:30 PM EDT): [facility] infirmary attendant/onc removed uterus 01/2023 F/u q 6 months [...] Type Department Care Team Description 04/05/[address] [facility] [address] [place], [place] [phone] Amina Nieves MD Dizziness 04/02/2025 Orders Only GENERIC EXTERNAL DATA DEPARTMENT Provider, Generic External Data 03/29/[address] [facility] [address] [place], [place] [phone] Amina Nieves MD Vaginal itching 03/24/[address] [facility] [address] [place] [phone] Amina Nieves MD 03/23/2025 9:00 AM EDT Office Visit [facility] [address] [place] [phone] Amina Nieves MD Type 2 diabetes mellitus with diabetic neuropathy, without long-term current use of insulin ([facility]) (Primary Dx); Iron deficiency anemia, unspecified iron deficiency anemia type; Mitral valve stenosis, unspecified etiology; Primary hypertension; Hypercholesterolemia; Severe obesity ([facility]); Gastroesophageal reflux disease, unspecified whether esophagitis present; Irritable bowel syndrome with constipation; Right kidney stone; Endometrial adenocarcinoma ([facility]); Localized osteoarthritis of right knee; Polyneuropathy due to type 2 diabetes mellitus ([facility]); Obstructive sleep apnea; Mild intermittent asthma without complication 03/23/2025 Travel 03/22/[address] [facility] [address] [place] [phone] Amina Nieves MD chart prep 03/19/2025 9:20 AM EDT Office Visit [facility] [address] [place] [phone] Terri Kruse NP Right kidney stone (Primary Dx); Low back pain, unspecified back pain laterality, unspecified chronicity, unspecified whether sciatica present; Drug-induced constipation 03/19/2025 Travel 03/19/[address] [facility] [address] [place] [phone] Amina Nieves MD 03/14/2025 Orders Only GENERIC EXTERNAL DATA DEPARTMENT Provider, Generic External Data 02/27/2025 Orders Only GENERIC EXTERNAL DATA DEPARTMENT Provider, Generic External Data 02/26/[address] [facility] [address] [place] [phone] Amina Nieves MD 02/14/[address] [facility] [address] [place] [phone] Amina Nieves MD 01/29/[address] [facility] [address] [place] [phone] Amina Nieves MD 01/26/[address] [facility] [address] [place], [place] [phone] Amina Nieves MD No Show 01/25/[address] [facility] [address] [place], [place] [phone] Amina Nieves MD Chart prep 01/18/[address] [facility] [address] [place], [place] [phone] Jhoana Worrell, 01/18/[address] [facility] [address] [place], [place] [phone] Amina Nieves MD from Last 3 Months [...] 10/11/2025 10/11/2024 Depression Screening 10/20/2025 10/20/2024, 10/21/19 Mammogram 01/29/2026 01/29/2025, 12/10, 10/30/2021, Additional history [...] PM EDT Narrative 04/03/2025 8:17 AM EDT [address] [address] Fluoroscopy Report Signed Patient: Karon Nur MR#: [id number] : 1955 Acct:[id number] Age/Sex: 69 / F ADM Date: 04/02/25 Loc: HO[facility] Attending Dr: Isaiah Navarrete MD Ordering Physician: Isaiah Navarrete MD Date of Service: 04/02/25 Procedure(s): FL guidance in OR Accession Number(s): [id number] cc: Isaiah Navarrete MD; Amina Nieves Reason [...] 04/03/25 0815 DD/ 1542 TD/TT: 04/02/25 1615 [facility]: Procedure Note Donotuseinterpreter, Image - 04/03/[address] [address] Fluoroscopy Report Signed Patient: Kiersten NurR#: [id number] : 1955cct:[id number] Age/Sex: 69 / FADM Date: 04/02/25 Loc: HO.[facility] Attending Dr: Isaiah Navarrete MD Ordering Physician: Isaiah Navarrete MD Date of Service: 04/02/25 Procedure(s): FL guidance in OR Accession Number(s): [id number] cc: Isaiah Navarrete MD; Amina Nieves Reason [...] 04/03/25 0815 DD/ 1542 TD/TT: 04/02/25 1615 [facility] [employer] [facility]: [facility] External Provider IMG IR PROCEDURES Final Result * Gross Exam without slides (04/02/2025 3:36 PM EDT) 04/02/2025 3:36 PM EDT 04/02/2025 3:46 PM EDT [facility] - 04/04/2025 9:30 AM EDT ----- ------- Name: Karon Nur Age/Sex: 69/F : 1955 [id number] Unit#: [id number] Attend Dr: Isaiah Navarrete MD Re04/02/25 Status: [facility] Location: [facility] Disch: ----- ------- SPEC : [id number] RECD: 04/02/25 STATUS: MARGARET LANDA NUM: [id number] JERROD: 04/02/[address] [facility] [address]: Isaiah Navarrete MD ENTERED: 04/02/25 [...] diameter. The specimen is entirely submitted to [facility] for chemical analysis. No sections taken. ([facility]) IHC S/NG Disclaimer NOTE: Unless otherwise stated, all tissue is formalin-fixed and paraffin-embedded. Some or all of the immunohistochemical tests reported herein may have been developed and their performance characteristics determined by [facility]. They have not been cleared or approved by the U.S. Food and Drug Administration (FDA). However, the FDA has determined that such clearance or approval is not necessary. This laboratory is certified under the Clinical Laboratory Improvement Amendments of 1988 (CLIA) as qualified to perform high complexity clinical laboratory testing. Copies To: Isaiah Navarrete MD [facility] [address] [place] [address] [address] [place] [address] CONTINUED ON NEXT PAGE ----- ------- Name: Karon Nur Age/Sex: 69/F : 1955 Unit#: [id number] Attend Dr: Isaiah Navarrete MD Re04/02/25 Status: [facility] Location: [facility] Disch: ----- ------- SPEC : [id number] RECD: 04/02/25 STATUS: MARGARET LANDA NUM: [id number] JERROD: 04/02/[address] [facility] [address]: Isaiah Navarrete MD ENTERED: 04/02/25 SP TYPE: Surgical OTHR DR: Amina Nieves ORDERED: GO Copies To: (Continued) Amina Nieves [address] [place] [address] ----- ------- Signed (signature on file) Sobia Huynh MD 04/04/25 0930 ----- ------- END OF REPORT Generic External Data Provider LAB BLOOD ORDERAB LES Final Result Performing Organization Address [facility] de Phone Number [facility] [address] [place] [phone] * (ABNORMAL) Glucose, Whole Blood (04/02/2025 2:04 PM EDT) Pathologist [facility] Glucose, Whole Blood 176(H) 60 - 115 mg/dL [facility] Comment:METER #: [id number] 04/02/2025 2:04 PM EDT 04/02/2025 2:10 PM EDT Generic External Data Provider LAB BLOOD ORDERAB LES Final Result Performing Organization Address [facility] de Phone Number [facility] [address] [place] [phone] * (ABNORMAL) Reticulocyte Count (03/23/2025 10:01 AM EDT) [facility] Reticulocytes Absolute 0.100(H) 0.026 - 0.095 X10*6/uL [facility] Immature Retic Fraction 21.8(H) 3.0 - 15.9 % [facility] Retic HGB Equivalent 29.2(L) 30.0 - 35.0 pg [facility] Reticulocyte Percent 2.4(H) 0.5 - 1.8 % [facility] Blood Venous blood specimen / Unknown 03/23/2025 10:01 AM EDT 03/23/2025 11:11 AM EDT Amina Nieves MD LAB BLOOD ORDERABLES Final Res ult Performing Organization Address [facility] de Phone Number [facility] [address] [place] [phone] * (ABNORMAL) POCT Glucose (03/23/2025 9:17 [...] AM EDT Narrative 03/15/2025 12:50 AM EDT [address] [address] [address] Scan Report Signed Patient: Karon Nur MR#: [id number] : 1955 Acct:[id number] Age/Sex: 69 / F ADM Date: 03/14/25 Loc: HO.ED Attending Dr: Ordering Physician: Shahnaz Varghese MD Date of Service: 03/15/25 Procedure(s): CT abdomen pelvis wo IV con Accession Number(s): [id number] cc: Amina Nieves; Shahnaz Varghese MD Report Number: [id number]: Total DLP = 978.00 mGy-cm Reason for Exam: right flank pain CLINICAL HISTORY: right flank pain CT abdomen and pelvis without contrast Comparison: CT/REG/KS/SR - CT ABDOMEN PELVIS W IV CON [...] gastrointestinal tract is unremarkable. There is a uusbt-kn-pvyjnaps sized fat containing umbilical hernia. There are [...] MD in OV> 03/15/2547 DD/ TD/TT: 03/15/2547 [facility] [employer] [facility]: Procedure Note Donotuseinterpreter, Image - 03/15/[address] [place] [address] [address] Scan Report Signed Patient: Adan River,MarquiseBrody#: [id number] : 1955cct:[id number] Age/Sex: 69 / FADM Date: 03/14/25 Loc: HO.ED Attending Dr: Ordering Physician: Shahnaz Varghese MD Date of Service: 03/15/25 Procedure(s): CT abdomen pelvis wo IV con Accession Number(s): [id number] cc: Amina Nieves; Shahnaz Varghese MD Report Number: [id number]: Total DLP = 978.00 mGy-cm Reason for Exam: right flank pain CLINICAL HISTORY: right flank pain CT abdomen and pelvis without contrast Comparison: CT/REG/KS/SR - CT ABDOMEN PELVIS W IV CON [...] gastrointestinal tract is unremarkable. There is a wfgzw-rv-sktsusor sized fat containing umbilical hernia. There are [...] MD in OV> 03/15/2547 DD/ TD/TT: 03/15/2547 [facility] [employer] [facility]: [facility] External Provider IMG CT PROCEDURES Final Result * (ABNORMAL) Urinalysis, Complete, with Reflex to Culture (03/14/2025 10:50 PM EDT) Color Urine Yellow [facility] Appearance Urine Clear [facility] PH 5.5 5.0 - 9.0 [facility] Glucose Urine UA >=1000(A) Negative mg/dL [facility] Urine Blood Moderate (2+)(A) Negative [facility] Specific [place] - Urine 1.025 1.005 - 1.025 [facility] Urine Protein Trace Neg-Trace mg/dL [facility] Urine Ketones Negative Negative mg/dL [facility] Nitrite Urine Negative Negative [facility] Leukocyte Esterase Urine Negative Negative [facility] RBC Urine 11-20(A) 0 - 2 /HPF [facility] Urine WBC 0-5 0 - 5 /HPF [facility] Urine Squamous Epithelial Cell 0-2 0 - 2 /HPF [facility] Urine Bacteria None Seen None Seen [facility] Hyaline Casts, Urine 0-2 0 - 2 /LPF [facility] 03/14/2025 10:5 0 PM EDT 03/14/2025 10:53 PM EDT Narrative [facility] - 03/14/2025 11:17 PM EDT Urine, Clean Catch us Generic External Data Provider LAB URINE ORDERAB LES Final Result [facility] [address] [place] [phone] * (ABNORMAL) CBC auto differential (03/14/2025 8:52 PM EDT) White Blood Count 9.5 4.8 - 10.8 X10*3/uL [facility] Red Blood Count 4.25 4.20 - 5.50 X10*6/uL [facility] Hemoglobin 11.7(L) 12.0 - 16.0 g/dl [facility] Hematocrit 33.9(L) 37.0 - 47.0 % [facility] Mean Corpuscular Volume 79.8(L) 80.0 - 98.0 fL [facility] Mean Corpuscular Hemoglobin 27.5 27.0 - 33.0 pg [facility] Mean Corpuscular HGB Conc 34.5 31.0 - 35.0 g/dl [facility] Red Cell Distribution Width 14.2 11.0 - 16.0 % [facility] Platelet Count 244 160 - 400 X10*3/uL [facility] Mean Platelet Volume 11.9 9.4 - 12.3 fL [facility] Neutrophils Percent Auto 78.3(H) 45 - 73 % [facility] Imm Gran Pct Auto 0.2 0.0 - 0.4 % [facility] Lymphocytes Percent Auto 14.4(L) 20 - 40 % [facility] Monocytes Percent Auto 5.8 2 - 11 % [facility] Eosinophils Percent Auto 1.0 0 - 4 % [facility] Basophils Percent Auto 0.3 0 - 2 % [facility] NRBC Pct Auto 0.0 0.0 - 0.2 /100WBC [facility] Neutrophils Absolute Auto 7.4 2.0 - 8.3 x10*3/uL [facility] Imm Gran Abs Auto 0.02 0.00 - 0.03 X10*3/uL [facility] Lymphocytes Absolute Auto 1.4 1.2 - 4.9 X10*3/uL [facility] Monocytes Absolute Auto 0.6 0.1 - 1.2 X10*3/uL [facility] Eosinophils Absolute Auto 0.1 0.0 - 0.4 X10*3/uL [facility] Basophils Absolute Auto 0.0 0.0 - 0.2 X10*3/uL [facility] NRBC Abs Auto 0.000 0.0 - 0.012 X10*3/uL [facility] 03/14/2025 8:52 PM EDT 03/14/2025 8:57 PM EDT us Generic External Data Provider LAB BLOOD ORDERAB LES Final Result Performing Organization Address City/[facility]/ZIP Co de Phone Number [facility] [address] [place] [phone] * Lipase (03/14/2025 8:52 PM EDT) Lipase 36 8 - 78 U/L [facility] 03/14/2025 8:52 PM EDT 03/14/2025 8:57 PM EDT Generic External Data Provider LAB BLOOD ORDERAB LES Final Result Performing Organization Address [facility] Co de Phone Number [facility] [address] [place] [phone] * (ABNORMAL) Comprehensive Metabolic Panel (03/14/2025 8:52 PM EDT) Sodium 136 135 - 145 mmol/L [facility] Potassium 4.0 3.3 - 5.1 mmol/L [facility] Chloride 104 96 - 108 mmol/L [facility] Carbon Dioxide 23 22 - 29 mmol/L [facility] Anion Gap 13 12 - 20 [facility] Urea Nitrogen (BUN) 21(H) 9 - 16 mg/dL [facility] Creatinine, Serum 1.24 0.5 - 1.4 mg/dL [facility] Creatinine Clr Calc Pharmacy 45.2 [facility] Comment:Provided height and weight: 149.86 cm,107.5 kg.eGFR (calculated from the MDRD study equation) and eCrCl(calculated from the Cockcroft-Gault equation) are based ondifferent parameters and may not yield comparable results.If eCrCl result is absurd, please check patient'sheight/weight. Estimated Glomerular Filt Rate 43 [facility] Comment:Chronic Kidney Disea se: Estimated GFR < 60 mL/min/1.80k6[place]egas Kidney Disease: Estimated GFR < 15 mL/min/1.73m2 Glucose 349(H) 60 - 115 mg/dL [facility] Calcium 9.8 8.4 - 10.2 mg/dL [facility] Bilirubin, Total 0.6 0.0 - 1.0 mg/dL [facility] Aspartate Amino Transferase 27 5 - 31 U/L [facility] Alanine Aminotransferase 35(H) 0 - 31 U/L [facility] Total Protein 7.2 6.5 - 8.0 g/dL [facility] Albumin Level 4.2 3.5 - 5.0 g/dL [facility] Alkaline Phosphatase 121(H) 39 - 117 U/L [facility] 03/14/2025 8:52 PM EDT 03/14/2025 8:57 PM EDT us Generic External Data Provider LAB BLOOD ORDERAB LES Final Result Performing Organization Address City/[facility]/ZIP Co de Phone Number [facility] [address] [place] [phone] * (ABNORMAL) Hemoglobin A1c (02/27/2025 7:59 AM EDT) Hemoglobin A1c 9.1(H) <6.0 % [facility] Comment:Hemoglobin A1C Refer ence Range Adults: 4.8 - 6.0 % Non diabetic: < 6.0 % Goal: < 7.0 %Additional Action Suggested: > 8.0 %Note: Hemoglobin A1c results are invalid for patients with abnormal amounts of HbF. Blood transfusions may impact the HbA1c concentration in the patient sample. Estimated Average Glucose 214 mg/dL [facility] Comment:eAG = Estimated ave rage glucose which is %A1C expressed asaverage glucose, using the formula of the L4Y-EcfnlgkYqesxke Glucose study (ADAG), Diabetes Care, Vol.31,#8,Feb. 2007 02/27/2025 7:59 AM EDT 02/27/2025 7:59 AM EDT us Generic External Data Provider LAB BLOOD ORDERAB LES Final Result [facility] [address] [place] [phone] * (ABNORMAL) Hepatic Function Panel (02/27/2025 7:59 AM EDT) Bilirubin, Total 0.7 0.0 - 1.0 mg/dL [facility] Bilirubin, Direct 0.2 0.0 - 0.5 mg/dL [facility] Aspartate Amino Transferase 30 5 - 31 U/L [facility] Alanine Aminotransferase 36(H) 0 - 31 U/L [facility] Total Protein 7.3 6.5 - 8.0 g/dL [facility] Albumin Level 4.4 3.5 - 5.0 g/dL [facility] Alkaline Phosphatase 118(H) 39 - 117 U/L [facility] 02/27/2025 7:59 AM EDT 02/27/2025 7:59 AM EDT Generic External Data Provider LAB BLOOD ORDERAB LES Final Result [facility] [address] [place] [address] [phone] * BI Mammogram Screening Tomosynthesis Bilateral (01/29/2025 8:15 AM EDT) Anatomical Region Laterality Modality Breast Bilateral Mammography 01/29/2025 8:15 AM EDT Narrative 02/05/2025 5:09 PM EDT [facility] [address] [place] [address] Mammography Report Signed Patient: Karon Nur MR#: [id number] : 1955 Acct:[id number] Age/Sex: 69 / F ADM Date: 01/29/25 Loc: HO.MAMMO Attending Dr: Amina Nieves MD Ordering Physician: Amina Nieves Results: 1Negative Date of Service: 01/29/25 Follow Up: 1 Year From Orig inal Mammogram Procedure(s): MM tomosynthesis screening BI Accession Number(s): [id number] cc: Amina Nieves EXAMINATION: MM SCREENING DIGITAL [...] 02/05/25 1705 DD/ 0815 TD/TT: 01/29/25 0830 [facility]: Procedure Note Donotuseinterpreter, Image - 02/05/20[facility] [address] [place] [address] Mammography Report Signed Patient: Ron Nur#: [id number] : 1955cct:[id number] Age/Sex: 69 / FADM Date: 01/29/25 Loc: HO.MAMMO Attending Dr: Amina Nieves MD Ordering Physician: Nicole Nievesults: 1Negative Date of Service: 01/29/25Follow Up: 1 Year From Orig ina Mammogram Procedure(s): MM tomosynthesis screening BI Accession Number(s): [id number] cc: Amina Nieves EXAMINATION: MM SCREENING DIGITAL [...] 02/05/25 1705 DD/ 0815 TD/TT: 01/29/25 0830 [facility]: us Amina Nieves MD IMG BI PROCEDURES Final Result * (ABNORMAL) Lipid Panel with Reflex to Direct LDL (10/10/2024 7:54 AM EDT) Triglycerides 248(H) <150 mg/dL [facility] Comment:Desirable Triglyceri de: less than 150 mg/dLBorderline High Triglyceride 150-199 mg/dLHigh Triglyceride: 200-499 mg/dLVery High Triglyceride: greater than or equal to 5OO mg/dL Cholesterol 207(H) <200 mg/dL [facility] Comment:Desirable Cholestero l: less than 200 mg/dLBorderline High Cholesterol: 200-239 mg/dLHigh Cholesterol: greater than 239 mg/dL LDL Cholesterol Calculated 116(H) <100 mg/dL [facility] Comment:Desirable LDL: less than 100 mg/dLNear Optimal/Above Optimal LDL: 110- 129 mg/dLBorderline High LDL: 130-159 mg/dLHigh LDL: 160-189 mg/dLVery High LDL: greater than or equal to 190 mg/dL HDL Cholesterol 42 >40 mg/dL [facility] Comment:Desirable HDL: great er than 40 mg/dL Note: This HDL assay may give artificially low results in patients with liver disease. 10/10/2024 7:54 AM EDT 10/10/2024 7:54 AM EDT us Generic External Data Provider LAB BLOOD ORDERAB LES Final Result Performing Organization Address [facility] de Phone Number [facility] [address] [place] [phone] * Albumin, Random Urine W/Creatinine (05/25/2024 9:46 AM EST) Creatinine, Urine 85.32 mg/dL [facility] Microalbumin Urine 23.0 mg/L [facility] Microalbum Creatinine Ratio Ur 26.9 <30 ug/mg cr [facility] Comment:Albumin/Creatinine R atio Reference Ranges: Normal: < 30 ug/mg creatinine Microalbuminuria: 30 - 300 ug/mg creatinineClinical Albuminuria: > 300 ug/mg creatinine Urine (Urine, Random) 05/25/2024 9:46 AM EST 05/25/2024 11:28 AM EST us Amina Nieves MD LAB URINE ORDERABLES Final Res ult Performing Organization Address [facility] Co de Phone Number [facility] [address] [place] [phone] * Hepatitis C Antibody with Reflex to HCV, RNA, Quantitative, Real-Time PCR (05/25/2024 9:46 AM EST) Hepatitis C Antibody Nonreactive Nonreactive [facility] Comment:Antibodies to HCV no t detected; does not exclude early acuteHCV infection. Blood Venous blood specimen / Unknown 05/25/2024 9:46 AM EST 05/25/2024 10:53 AM EST Amina Nieves MD LAB BLOOD ORDERABLES Final Res ult [facility] [address] [place] [address] [phone] * (ABNORMAL) Colonoscopy (10/18/2019) Colonoscopy Abnormal(A ) Normal Historical Provider HEALTH MAINTENANCE Edited Result - Final from Last 3 Months or Most Recently Relevant to Health Maintenance Insurance [facility] SKILLED NURSING OPTIONS (O D-SNP) [place] [id number] Care Teams Home Improvement Contractor Relationship Specialty Start Date End Date Amina Nieves MD [address] [place] [phone] PCP - General Family Medicine 04/07/21
--- OUTSIDE RECORDS SUMMARY | 2025-04-12 08:45 | XMS_ITS | Encounter Summary ---
Author Organization [facility] Address [address] [place] [address] [address] [place] [address] Care Team Providers Care Thread Checker Name Role Phone Amina Nieves MD Primary Care Provider [phone] Reason for Referral * Consultation (Routine) - Authorized Specialty Diagnoses / Procedures Referred By Contac t Referred To Contact Pharmacy Diagnoses HTN (hypertension) Amina Nieves MD [address] [place] [address] Phone: tel: fax: Referral ID Status Reason Start Date Expiration Date Visits Requested Visits Authorized [id number] Authorized Continuity of Care 10/25/2024 10/25/2025 6 6 Encounter Details Date Type Department Care Team (Late st Contact Info) Description 10/25/2024 Orders Only [facility] [address] [place], [place] [phone] Amina Nieves MD [address] [place], [place] [phone] HTN (hypertension) (Primary Dx) Social History Tobacco [...] documented as of this encounter Care Teams Thread Checker Relationship Specialty Start Date End Date Amina Nieves MD [address] [place] [phone] PCP - General Family Medicine 04/07/21 documented as of this encounter
--- OUTSIDE RECORDS SUMMARY | 2025-04-12 08:45 | XMS_ITS | Patient Health Record ---
Demographics Address [address] [place] [address] Mobile Preferred Language Unknown Marital Status Unknown Gnosticism Affiliation Unknown Race Ethnic Group or Author Organization [facility] Address [address] [place] [address] Care Team Providers Care Client Development Director Name Role Phone Tyson Cam NP Primary Care Provider Celso Zepeda Unavailable [phone] Allergies Allergen (clinical drug ingredient) Drug/Non Drug [...] Problem Status W/U Status Risk Notes Problem [id number] Encounter for screening for malignant neoplasm of colon (Z12.11) Active confirmed Problem 305613158 History of adenomatous polyp of colon (Z86.010) Active confirmed Problem 37801358 Irritable bowel syndrome without diarrhea (K58.9) Active confirmed Problem [id number] Abdominal pain, left upper quadrant (R10.12) Active confirmed Plan Of Treatment Future Test Test Name Order Date COLONOSCOPY 05/23/2013 COLONOSCOPY 08/03/2019 Insurance Providers Payer Name Payer Address Payer Phone Subscriber Number Group Number Insured Name Patient Relationship to Insured Coverage Start Date Coverage End Date [facility] [address] [place] [address] [id number] BELKIS SAMPSON Self - patient is the insured Medical (General) History Medical History History ICD Code Migraines Asthma Hypertension Back pain DM Denies TN,CVA,renal disease GERD--EGD 09/2012 with mild g astritis and H.pylori--the H. pylori has not been treated Neg. abd U/S in 09/2012 Colonoscopy 2004 was negativ e; Colonoscopy in 07/2013-1 tubular adenoma removed Hyperlipidemia IBS--chronic LUQ discomfort Kidney stones Surgical History Surgery Date(Month/Year) tubal ligation eye surgery left knee replacement--Dr. Craft 04/30 14
--- OUTSIDE RECORDS SUMMARY | 2025-04-12 08:45 | XMS_ITS | Patient Health Record ---
[facility] Address [address] [facility] [place] [id number] Care Team Providers Care Corporate Claims Examiner Name Role Phone Carmen Santiago Primary Care Provider Unavailab Risa Castellanos Unavailable [phone] Nyla Welsh Unavailable [phone] Allergies Allergen (clinical drug ingredient) Drug/Non Drug [...] Polyneuropathy due to type 2 diabetes mellitus (380609504) Type 2 diabetes mellitus with diabetic polyneuropathy (E11.42) Active confirmed Vital Signs Blood pressure diastolic 70 mm Hg 03/13/2025 Height 4ft 11in in 03/13/2025 Blood pressure systolic 160 mm Hg 03/13/2025 Weight 235 lbs 03/13/2025 BMI 47.46 kg/m2 03/13/2025 Encounters Encounter Location Date Provider Diagnosis [address] [address] 06/30/2024 Risa Chen Type 2 diabetes mellitus with diabetic polyneuropathy E11.42 and Xerosis of skin L85.[address] [address] 09/13/2024 Risa Chen Type 2 diabetes mellitus with diabetic polyneuropathy E11.42 ; Xerosis of skin L85.3 ; Other hammer toe(s) (acquired), right foot M20.41 and Other hammer toe(s) (acquired), left foot M20.[address] [address] 12/07/2024 Nyla Welsh Type 2 diabetes mellitus with diabetic polyneuropathy E11.[address] [address] 03/13/2025 Risa Chen Type 2 diabetes mellitus [...] Details Provider Name:Risa singh, 05/29/2025 11:00:00 AM, [address] [place] [address], [place], [address], Insurance Providers Payer Name Payer Address Payer Phone Subscriber Number Group Number Insured Name Patient Relationship to Insured Coverage Start Date Coverage End Date [facility] [employer] Claims [address] [facility] [place] [address] [phone] [id number] Karon Howard Self - patient is the insured Medical (General) History Medical History History ICD Code Arthritis asthma type I diabetes Headaches High blood pressure Cataracts Joint implants/screws Cholesterol Surgical History Surgery Date(Month/Year) cataract removal 06/2024
--- OUTSIDE RECORDS SUMMARY | 2025-04-12 08:46 | XMS_ITS | Encounter Summary ---
Author Organization [employer] Address [address] [place] [address] [address] [place] [address] Care Team Providers Care Single Ending Machine Operator Name Role Phone Amina Nieves MD Primary Care Provider [phone] Encounter Details Date Type Department Care Team (Late st Contact Info) Description 10/27/2022 Orders Only [facility] MED[facility]INE [address] [place], [place] [phone] Amina Nieves MD [address] [place], [place] [phone] Vaginal bleeding (Primary Dx); Endometrial thickening on [...] documented as of this encounter Care Teams Single Ending Machine Operator Relationship Specialty Start Date End Date Amina Nieves MD [address] [place] [address] PCP - General Family Medicine 04/07/21 documented as of this encounter
--- OUTSIDE RECORDS SUMMARY | 2025-04-12 08:46 | XMS_ITS | Encounter Summary ---
Author Organization [employer] Address [address] [place] [address] [address] [place] [address] Care Team Providers Care Wafer Fabrication Technician Name Role Phone Amina Nieves MD Primary Care Provider [phone] Encounter Details Date Type Department Care Team (Late st Contact Info) Description 01/26/2024 Orders Only [facility] MEDICINE [address] [place], [place] [phone] Amina Nieves MD [address] [place], [place] [phone] Social History Tobacco Use Types Packs/Day Years [...] documented as of this encounter Care Teams Wafer Fabrication Technician Relationship Specialty Start Date End Date Amina Nieves MD [address] [place] [address] PCP - General Family Medicine 04/07/21 documented as of this encounter
--- OUTSIDE RECORDS SUMMARY | 2025-04-12 08:46 | XMS_ITS | Encounter Summary ---
Author Organization [employer] Address [address] [place] [address] 7[address] [place] [address] Care Team Providers Care Home Care Associate Name Role Phone Amina Nieves MD Primary Care Provider [phone] Reason for Visit * Reason Comments Med Refill Encounter Details Date Type Department Care Team ([facility] st Contact Info) Description 05/07/2023 Refill [facility] MEDICINE [address] [place], [place] [phone] Amina Nieves MD [address] [place], [place] [phone] Rash Social History Tobacco Use Types Packs/Day [...] as of this encounter Care Teams Home Care Associate Relationship Specialty Start Date End Date Amina Nieves MD [address] [place] [address] PCP - General Family Medicine 04/07/21 documented as of this encounter
--- OUTSIDE RECORDS SUMMARY | 2025-04-12 08:46 | XMS_ITS | Encounter Summary ---
Author Organization [employer] Address [address] [place] [address] [address] [place] [address] Care Team Providers Care Supervisor Gear Repair Name Role Phone Amina Nieves MD Primary Care Provider [phone] Reason for Visit * Reason Comments Med Refill Encounter Details Date Type Department Care Team ([facility] st Contact Info) Description 06/01/2024 Refill [facility] MEDICINE [address] [place], [place] [phone] Jhoana Worrell DO [address] [place], [place] [phone] Social History Tobacco Use Types Packs/Day Years [...] documented as of this encounter Care Teams Supervisor Gear Repair Relationship Specialty Start Date End Date Amina Nieves MD [address] [place] [address] PCP - General Family Medicine 04/07/21 documented as of this encounter
--- OUTSIDE RECORDS SUMMARY | 2025-04-12 08:46 | XMS_ITS | Encounter Summary ---
Author Organization [employer] Address [address] [place] [address] [address] [place] [address] Care Team Providers Care Sitecore Developer Name Role Phone Amina Nieves MD Primary Care Provider [phone] Reason for Visit * Reason Comments Med Refill Encounter Details Date Type Department Care Team ([facility] st Contact Info) Description 01/23/2023 Refill [facility] MEDICINE [address] [place] [address] Amina Nieves MD [address] [place] [address] Social History Tobacco Use Types Packs/Day Years [...] documented as of this encounter Care Teams Sitecore Developer Relationship Specialty Start Date End Date Amina Nieves MD [address] [place] [address] PCP - General Family Medicine 04/07/21 documented as of this encounter
--- NOTE | 2025-04-12 08:53 | MHC.OFFVIS ---
Intake Visit Reasons: Stent removal Intake Note: patient presents today for:cystoscopy stent removal urology medications: tamsulosin, vit b6, blood thinners: aspirin Salesperson Stereo Equipment Required: Yes Accompanied by: Self / Same As Patient Allergies Penicillins (PENICILLINS) Allergy (Intermediate, Verified 04/12/25 08:55) HIVES fluticasone (From Advair Diskus) Allergy (Mild, Verified 04/12/25 08:55) Unknown potassium Allergy (Mild, Verified 04/12/25 08:55) Unknown salmeterol (From Advair Diskus) Allergy (Mild, Verified 04/12/25 08:55) Unknown HPI Comments Details: Karon is a pleasant Anguillan-speaking female. She is a patient of Dr. Carrillo. She is seen for the following urologic conditions - nephrolithiasis Here for stent removal Recent procedure for proximal right ureteric Stent removed Nephrolithiasis - setting of diabetes Intervention - 04/05 right ureteroscopy [facility] Medical History Endometrial cancer Renal calculi Irritable bowel syndrome Microscopic hematuria Eczema GERD (gastroesophageal reflux disease) Bursitis of heel Achilles tendinitis Juvenile xanthogranuloma Pilar cysts Hypercholesterolemia Kidney stones Osteoarthritis of right knee Osteoarthritis of left knee Hypertension Diabetes mellitus Surgical History History of surgery Hx of total knee arthroplasty (~2017) History of tubal ligation Social History Household Members: None Housing: Apartment Alcohol intake: never Patient Tobacco Use Status: Never used Tobacco Current occupational status: disabled Female Reproductive History Menstrual Age of Menarche: 13 Review of Systems Const Denies chills and Denies fever(s) Card Reports no additional complaints and Denies syncope Resp Denies cough GI Denies abdominal pain and Denies heartburn Reports as per HPI and Denies change in libido Neuro Denies syncope Psych Denies change in libido Endo Denies change in libido Physical Exam Const General: cooperative, healthy appearing, comfortable and no acute distress Orientation/consciousness: patient oriented x3 HEENT Face and sinus: Yes normal facial exam Mouth: moist mucous membranes Neck Neck: Yes normal visual inspection, Yes full ROM and Yes trachea midline Chest Chest palpation & inspection: normal inspection of the chest Resp Effort & Inspection: normal respiratory effort, able to speak in complete sentences and no respiratory distress GI Inspection: Yes normal to inspection Back/Spine/Pelvis Cervical Spine: normal cervical lordosis Thoracic/Lumbar Spine: thoracic and lumbar spine normal to inspection Skin General skin exam: no rashes or lesions noted Neuro General: patient oriented x3, gait normal, tone normal and moves all extremities Extrem General: Yes normal to inspection and Yes capillary refill normal Office Procedures Cystoscopy Consent Discussed risk and benefit or proposed procedure with the patient. Information consent for procedure given to the patient. Discussed technical aspects, risks, benefits and alternatives in full. Addressed all of the patient's questions and concerns regarding the procedure. The patient demonstrated knowledge and understanding. They wish to proceed with this procedure. Preparation The patient was prepped in the usual manner. A primary school teacher was present and in the room. Genitalia was prepped with betadine solution in a sterile manner. Lidocaine Jelly 2% was placed into the urethra and 16Fr flexible Olympus cystoscope was inserted into the meatus after adequate lubrication. Procedure A well lubricated 16 Togolese cystoscope was placed No abnormality noted of urethra during placement Indwelling stent seen within bladder emerging from right ureteric orifices The stent was grasped with a 3 prong grasper and removed without difficulty The patient tolerated the procedure well [id number] with stent removal DISPOSABLE SCOPE URO-G FLEXIBLE SCOPE Procedure code (CPT) selection complete Office Meds lidocaine HCl 2 % mucosal jelly in applicator Performing Provider: Isaiah Navarrete MD Performing Location: [facility] Administered by: Cristina Miranda RN on 04/12/25 09:55 Dose Route Admin Location Dispensed Lot Number Expiration Date NDC Form Presser 10 mL intra-urethral 10 mL nitrofurantoin monohydrate/macrocrystals 100 mg capsule Performing Provider: Isaiah Navarrete MD Performing Location: [facility] Administered by: Cristina Miranda RN on 04/12/25 09:55 Dose Route Admin Location Dispensed Lot Number Expiration Date NDC Form Presser 100 mg PO 1 cap naproxen 500 mg tablet Performing Provider: Isaiah Navarrete MD Performing Location: [facility] Administered by: Cristina Miranda RN on 04/12/25 09:55 Dose Route Admin Location Dispensed Lot Number Expiration Date NDC Form Presser 500 mg PO 1 tab Assessment & Plan Assessment & Plan (1) Urinary tract infection in female: Code(s): N39.0 - Urinary tract infection, site not specified Category: Medical (2) Renal calculi: Code(s): N20.0 - Calculus of kidney Category: Medical Plan Four month follow-up Orders: Orders US renal BI 4 Months N13.2 - Hydronephrosis with renal and ureteral calculous obstruction AMB Cystoscopy Today Z87.442 - Personal history of urinary calculi Patient Instructions: This note is constructed using voice recognition software. While every effort has been made to ensure accuracy winter intern errors may have been included. Imaging studies, laboratory and physical exam results were discussed and reviewed in detail. No major barriers to patient understanding were identified. An opportunity to ask questions regarding the treatment plan was provided. All questions were answered. The patient expressed understanding and agreement with the above treatment plan. The patient is aware they should contact our office by phone for worsening of their current condition or the appearance of new urologic symptoms. Compliance is encouraged with any medications and followup testing that is ordered. It is a privilege to participate in the urologic care of your patient. If you have any questions or concerns regarding treatment for the above conditions, or other urologic issues, please do not hesitate to contact me. The office telephone contact is [phone]. Sincerely, Dr Isaiah Navarrete MD, [facility] - Urology Compassionate Specialist Care for the Genitourinary System Coding Level of Care Code Est Pt Level 3 (67819) Complex EM visit Add On G2211 Diagnoses Urinary tract infection in female N39.0 Renal calculi N20.0 CPT Codes Cystoscopy - CPT: [id number] with stent removal ([id number])
== END 2025-04-12 10:13 | disposition home or self-care (01) ==
LOC: HO.HUSH 08:27
PROVIDERS: PCP General Practice; Visit Provider Urology
DX: R35.0 Frequency of micturition (principal); R39.15 Urgency of urination; N20.0 Calculus of kidney; R31.29 Other microscopic hematuria; N39.0 Urinary tract infection, site not specified; Z87.442 Personal history of urinary calculi
CPT/HCPCS: 52310

== ENCOUNTER → 2025-04-12 08:27 | Outpatient (BNVA) | payer OTHER, SELFPAY | PROVIDERS: PCP General Practice; Visit Provider Urology | DX: N20.0 Calculus of kidney (principal); N39.0 Urinary tract infection, site not specified | CPT/HCPCS: 52310; 81003 ==

== ENCOUNTER 2025-04-30 08:50 | Day surgery (SDC) | payer OTHER, SELFPAY ==
[2025-04-26 09:54] VITALS: BMI 46.7
--- NOTE | 2025-04-27 09:18 | HO.ANESPROP2 ---
Documented by User: Mari Carr NP 04/27/25 09:22 HPI - Anesthesia Eval Consult details Narrative: 70yo F for Colonoscopy BMI 46 s/p cysto 03/2025 with GA-LMA 3 Anesthesia Pre-Procedure Meds Is the patient on any of the following meds?: SGLT2 Inhib PMFSH Active Problems Active Problems: All Active Problems Excessive daytime sleepiness (Acute) Anemia (Acute) Hydronephrosis with obstructing calculus (Acute) Fatigue (Acute) Irritable mood (Acute) Obesity (BMI 35.0-39.9 without comorbidity) (Acute) Impingement syndrome, shoulder, left (Acute) Arthritis of right knee (Acute) S/P knee replacement (Acute) Left knee pain (Acute) Gas bloat syndrome (Acute) Pre-procedure lab exam (Acute) Abnormal abdominal ultrasound (Acute) Postmenopausal bleeding (Acute) Urinary urgency (Acute) Urinary frequency (Acute) Microscopic hematuria (Acute) Calculus of left kidney (Acute) Urinary tract infection in female (Acute) Flank pain (Acute) Gallbladder polyp (Acute) TERENCE (obstructive sleep apnea) (Acute) Umbilical hernia (Acute) Obesity (Acute) Chronic generalized abdominal pain (Acute) Poor historian (Acute) LUQ pain (Acute) Right foot pain (Acute) Primary osteoarthritis involving multiple joints (Acute) NAFLD (nonalcoholic fatty liver disease) (Acute) Diverticulosis of colon (Acute) Hemorrhoids (Acute) Tubular adenoma (Acute) Postprandial abdominal bloating (Acute) History of renal calculi (Acute) Ingrown nail of great toe of right foot (Acute) Arthritis of first MTP joint (Acute) Endometrial cancer (Acute) Irritable bowel syndrome (Acute) GERD (gastroesophageal reflux disease) (Acute) Renal calculi (Acute) Hx of total knee arthroplasty (Acute ~2017) Osteoarthritis of right knee (Acute) Diabetes mellitus (Acute) Past Medical History Medical History (Updated 04/09/25 @ 22:09 by Khadijah Townsend PA-C) Endometrial cancer Renal calculi Irritable bowel syndrome Microscopic hematuria Eczema GERD (gastroesophageal reflux disease) Bursitis of heel Achilles tendinitis Juvenile xanthogranuloma Pilar cysts Hypercholesterolemia Kidney stones Osteoarthritis of right knee Osteoarthritis of left knee Hypertension Diabetes mellitus Family History Family history of problems with anesthesia: No Surgical History Surgical History (Updated 04/26/25 @ 09:47 by Jennifer Ramirez RN) Hx of cystoscopy (04/02/25) History of surgery Hx of total knee arthroplasty (~2017) History of tubal ligation History of Problems with Anesthesia: No Social History Social History Household Members: None Housing: Apartment Alcohol intake: never Patient Tobacco Use Status: Never used Tobacco Use of substances other than those prescribed or required for medical reasons: No Advance Directives: No Advance Directives Information Provided: Yes Current occupational status: disabled Meds Allergies Allergy/AdvReac Type Severity Reaction Status Date / Time Penicillins (PENICILLINS) Allergy Intermediate HIVES Verified 04/12/25 08:55 fluticasone (From Advair Allergy Mild Unknown Verified 04/12/25 08:55 Diskus) potassium Allergy Mild Unknown Verified 04/12/25 08:55 salmeterol (From Advair Allergy Mild Unknown Verified 04/12/25 08:55 Diskus) Home Medications ?Medication ?Instructions ?Recorded ?Confirmed ?Last Taken ?Type amlodipine 5 mg tablet 5 mg PO DAILY 05/02/20 04/26/25 04/24/21 History aspirin 81 mg tablet,delayed 81 mg PO DAILY 05/02/20 04/26/25 04/24/21 History release (Adult Low Dose Aspirin) cholecalciferol (vitamin D3) 50 50 mcg PO DAILY 05/02/20 04/26/25 04/24/21 History mcg (2,000 unit) capsule gabapentin 100 mg capsule 100 mg PO BID 05/02/20 04/26/25 04/24/21 History irbesartan 300 mg tablet 300 mg PO DAILY 05/02/20 04/26/25 04/24/21 History isosorbide mononitrate 30 mg 30 mg PO DAILY 05/02/20 04/26/25 04/24/21 History tablet,extended release 24 hr rosuvastatin 10 mg tablet 10 mg PO DAILY 05/02/20 04/26/25 04/24/21 History calcium 500 mg (as 1 tab PO DAILY 04/25/21 04/26/25 04/24/21 History carbonate)-vitamin D3 5 mcg (200 unit) tablet (Oyster Shell Calcium-Vitamin D3) dapagliflozin propanediol 10 mg 10 mg PO DAILY 08/07/21 04/26/25 Unknown History tablet (Farxiga) metformin 500 mg tablet,extended 1,000 mg PO 03/09/22 03/26/25 Unknown History release 24 hr blood sugar diagnostic (FreeStyle #10 ea 08/10/22 03/26/25 Unknown History Lite Strips) lancets 33 gauge (TRUEplus Lancets) #100 ea 12/10/23 03/26/25 Unknown History montelukast 10 mg tablet 10 mg PO DAILY 12/10/23 04/26/25 Unknown History carvedilol 12.5 mg tablet 12.5 mg PO BID 06/30/24 04/26/25 Unknown History furosemide 20 mg tablet 20 mg PO DAILY 06/30/24 04/26/25 Unknown History Exam Height,Weight and Vital Signs: Height 4 ft 11 in Weight 104.78 kg Assessment and Plan Assessment Anesthesia Assessment: Chart Reviewed Final Anesthetic Review Family History of Problems with Anesthesia: No History of Problems with Anesthesia: No Documented by User: Oziel Hagan MD 04/30/25 10:16 [facility] Past Medical History Medical History (Updated 04/09/25 @ 22:09 by Khadijah Townsend PA-C) Endometrial cancer Renal calculi Irritable bowel syndrome Microscopic hematuria Eczema GERD (gastroesophageal reflux disease) Bursitis of heel Achilles tendinitis Juvenile xanthogranuloma Pilar cysts Hypercholesterolemia Kidney stones Osteoarthritis of right knee Osteoarthritis of left knee Hypertension Diabetes mellitus Surgical History Surgical History (Updated 04/26/25 @ 09:47 by Jennifer Ramirez, RN) Hx of cystoscopy (04/02/25) History of surgery Hx of total knee arthroplasty (~2016) History of tubal ligation Social History Social History Household Members: None Housing: Apartment Alcohol intake: never Patient Tobacco Use Status: Never used Tobacco Use of substances other than those prescribed or required for medical reasons: No Advance Directives: No Advance Directives Information Provided: Yes Current occupational status: disabled Meds Allergies Allergy/AdvReac Type Severity Reaction Status Date / Time Penicillins (PENICILLINS) Allergy Intermediate HIVES Verified 04/12/25 08:55 fluticasone (From Advair Allergy Mild Unknown Verified 04/12/25 08:55 Diskus) potassium Allergy Mild Unknown Verified 04/12/25 08:55 salmeterol (From Advair Allergy Mild Unknown Verified 04/12/25 08:55 Diskus) Home Medications ?Medication ?Instructions ?Recorded ?Confirmed ?Last Taken ?Type amlodipine 5 mg tablet 5 mg PO DAILY 05/02/20 04/26/25 04/24/21 History aspirin 81 mg tablet,delayed 81 mg PO DAILY 05/02/20 04/26/25 04/24/21 History release (Adult Low Dose Aspirin) cholecalciferol (vitamin D3) 50 50 mcg PO DAILY 05/02/20 04/26/25 04/24/21 History mcg (2,000 unit) capsule gabapentin 100 mg capsule 100 mg PO BID 05/02/20 04/26/25 04/24/21 History irbesartan 300 mg tablet 300 mg PO DAILY 05/02/20 04/26/25 04/24/21 History isosorbide mononitrate 30 mg 30 mg PO DAILY 05/02/20 04/26/25 04/24/21 History tablet,extended release 24 hr rosuvastatin 10 mg tablet 10 mg PO DAILY 05/02/20 04/26/25 04/24/21 History calcium 500 mg (as 1 tab PO DAILY 04/25/21 04/26/25 04/24/21 History carbonate)-vitamin D3 5 mcg (200 unit) tablet (Oyster Shell Calcium-Vitamin D3) dapagliflozin propanediol 10 mg 10 mg PO DAILY 08/07/21 04/26/25 Unknown History tablet (Farxiga) metformin 500 mg tablet,extended 1,000 mg PO 03/09/22 03/26/25 Unknown History release 24 hr blood sugar diagnostic (FreeStyle #10 ea 08/10/22 03/26/25 Unknown History Lite Strips) lancets 33 gauge (TRUEplus Lancets) #100 ea 12/10/23 03/26/25 Unknown History montelukast 10 mg tablet 10 mg PO DAILY 12/10/23 04/26/25 Unknown History carvedilol 12.5 mg tablet 12.5 mg PO BID 06/30/24 04/26/25 Unknown History furosemide 20 mg tablet 20 mg PO DAILY 06/30/24 04/26/25 Unknown History Exam Airway Mallampati Class: II (missing a couple, one chipped laterally) TM Dist: >3cm Neck ROM: Full Heart: rrr Lungs: cta Assessment and Plan Final Anesthetic Review NPO: Yes ASA Class: IV Final Preanesthetic Review: No Changes in Pt Med Stat, Meds/Allgs Chart Reviewed and Consent Obtained/Reviewed Patient Risk: Intermediate Procedure Risk: Low Anesthetic Plan Anesthetic Plan: MAC: Disposition: Standard PACU
--- NOTE | 2025-04-30 09:49 | MHC.SHP ---
Pre-Procedural Eval Section A - 24 Hr Update-Section A only Date of Service: 04/30/25 The patient is an INPATIENT: No The patient has been examined within 24 hours of the surgical procedure. The History & Physical has been completed within 30 days and I have reviewed it.: No Section B - Complete if H&P > 30 days Chief Complaint: Surveillance for colon polyps Relevant Family History (Specify if Yes): No Relevant Social History: None Present Medications: see Short Stay Collaborative assessment Medical History: Significant History (Endometrial cancer Renal calculi Irritable bowel syndrome Microscopic hematuria Eczema GERD (gastroesophageal reflux disease) Bursitis of heel Achilles tendinitis Juvenile xanthogranuloma Pilar cysts Hypercholesterolemia Kidney stones Osteoarthritis of right knee Osteoarthritis of left knee Hyperten) History of Previous Operations: Relevant previous surgery/procedure and date(s) (Hx of total knee arthroplasty (~2017) History of tubal ligation) Allergies: Allergies Allergy/AdvReac Type Severity Reaction Status Date / Time Penicillins (PENICILLINS) Allergy Intermediate HIVES Verified 04/12/25 08:55 fluticasone (From Advair Allergy Mild Unknown Verified 04/12/25 08:55 Diskus) potassium Allergy Mild Unknown Verified 04/12/25 08:55 salmeterol (From Advair Allergy Mild Unknown Verified 04/12/25 08:55 Diskus) Review of Systems Sugical H&P ROS: Negative: Constitution, Cardiovascular, Respiratory and Gastrointestinal Exam Surgical H&P Exam: Normal: Heart, Normal: Lungs, Normal: Extremities and Normal: Abdomen Plan Diagnosis/Plan: Unchanged I have reviewed the history and physical and performed a pertinent physical examination on my patient. No changes have occurred unless specified. Time Spent With Patient Time: Total time managing care of this patient today ____ minutes.
[2025-04-30 09:53] VITALS: BMI 46.0
[2025-04-30 09:58] VITALS: BP 151/65; PULSE 86; RESP 14; TEMP 36.4; O2SAT 97
[2025-04-30] MEDS: Lactated Ringers 1,000 ML 100 ML IVCONT (10:00)
--- NOTE | 2025-04-30 11:39 | HO.OPN-COLON ---
Colonoscopy Operative Note Operative Note Date of Service: 04/30/25 Narrative: COLONOSCOPY TILL CECUM WITH BIOPSIES AND SNARE POLYPECTOMY Pre-op diagnosis: Surveillance of colon polyps. Post-op diagnosis:? Colon polyps, transverse colon nodule, Diverticulosis, hemorrhoids Specimens and Sources: : a: sigmoid nodule bxs ?b: transverse colon polyp ?c: descending colon polyp bx Endoscopist:? Abbi Solis MD Anesthesia:?MAC Consent: Indications for the procedure and potential complications of bleeding, perforation, reaction to medications and missed diagnosis were discussed with the patient and informed consent was obtained. Instrument: Olympus PCF H 190 L variable stiffness pediatric colonoscope Monitoring: Vital signs and clinical assessment, intermittent blood pressure monitoring, continuous EKG monitoring, Pulse oximetry and Carbon Dioxide monitoring were done throughout the procedure. Please see anesthesia flowsheet. Colon withdrawl time was 30 minutes. Procedure: The patient was placed in the left lateral decubitis position and pre-procedure medications were administered. After a digital rectal examination of the ano-rectum, the video colonoscope was inserted into the rectum and advanced through the colon to the cecum. The colonoscope was slowly withdrawn in a retrograde panoramic fashion and the colon mucosa was carefully examined including a retroflexed view of the rectum. Findings and interventions are described below. Procedure Difficulty: Colon was long and tortuous and there was some loop formation Findings: Terminal Ileum: Not evaluated Cecum: Normal Ascending Colon: Normal Transverse Colon: A 10-12 mm sessile polyp - removed with a hot snare. A 3.5 cms benign appearing submucosal nodule with normal overlying mucosa at 130 cms - multiple biopsies were obtained. Descending Colon: A 4-5 mm sessile polyp - removed with a cold biopsy. Sigmoid Colon: Moderate diverticulosis Rectum: Normal Ano-rectum: Small internal hemorrhoids Colon preparation: Good after copious irrigation. Philadelphia Bowel Preparation Scale Right colon; 2 Transverse colon: 2 Left colon; 2 (0 = Unprepared colon segment with mucosa not seen due to solid stool that cannot be cleared. 1 = Portion of mucosa of the colon segment seen, but other areas of the colon segment not well seen due to staining, residual stool and/or opaque liquid. 2 = Minor amount of residual staining, small fragments of stool and/or opaque liquid, but mucosa of colon segment seen well. 3 = Entire mucosa of colon segment seen well with no residual staining, small fragments of stool or opaque liquid) Impression and Post Procedure Diagnosis: Colonoscopy Findings: Two small to medium sized polyps were removed Moderate diverticulosis seen in the sigmoid colon small hemorrhoids on retroflexed exam. Plan: Pt has a FU appointment on 06/25/25 with Lexi Lou NP Repeat Colonoscopy in 3-5 years if polyps are adenomatous and due to history of adenomatous colon polyps. Abdominal CT scan to evaluate submucosal nodule if biopsies are normal. Above findings were reviewed with the patient and relevant handouts were given and the discharge area.
[2025-04-30 11:43] VITALS: BP 152/77; PULSE 90; RESP 28; TEMP 37.2; O2SAT 98
[2025-04-30 11:57] VITALS: BP 156/62; PULSE 77; RESP 20; O2SAT 97
[2025-04-30 12:13] VITALS: BP 150/66; PULSE 81; RESP 20; TEMP 36.8; O2SAT 96
== END 2025-04-30 13:05 | disposition home or self-care (01) ==
PROVIDERS: PCP General Practice; Visit Provider Internal Medicine Gastroenterology
PROC: 0DJD8ZZ Inspection of Lower Intestinal Tract, Via Natural or Artificial Opening Endoscopic (ICD-10-PCS; CPT 45378; principal; 2025-04-30 11:00)
DX: Z12.11 Encounter for screening for malignant neoplasm of colon (principal); Z86.0101 Personal history of adenomatous and serrated colon polyps; K64.8 Other hemorrhoids; K57.30 Diverticulosis of large intestine without perforation or abscess without bleeding; D12.3 Benign neoplasm of transverse colon; K63.5 Polyp of colon
CPT/HCPCS: 45380; 45385; 88305; J2003; J2250; J2704

== ENCOUNTER → 2025-04-30 08:50 | Outpatient (BNV) | payer OTHER, SELFPAY | PROVIDERS: PCP General Practice; Visit Provider Internal Medicine Gastroenterology | DX: Z12.11 Encounter for screening for malignant neoplasm of colon (principal); D12.3 Benign neoplasm of transverse colon; D12.4 Benign neoplasm of descending colon; K57.30 Diverticulosis of large intestine without perforation or abscess without bleeding; K64.8 Other hemorrhoids | CPT/HCPCS: 45380; 45385 ==

== ENCOUNTER 2025-05-03 13:40 | Outpatient (REF) | payer OTHER, SELFPAY ==
--- OUTSIDE RECORDS SUMMARY | 2024-11-28 06:00 | XMS_ITS ---
Author Organization [facility] Address [address] [place] [address] Care Team Providers Care Seniour Insight Manager Name Role Phone Carmen Santiago Primary Care Provider Unavailab Risa Castellanos Unavailable [phone] Yancey Encounters Encounter Location Date Provider Diagnosis [facility] [address] [place] [address] 11/28/2024 Risa Chen Plan Of Treatment Next Appt Details Provider Name:Risa singh, 05/29/2025 11:00:00 AM, [address] [place], [address], Progress Notes * Cheri ARELLANOsDOB: [birth year] (70 yo F)Acc No.[id number]:11/28/2024 Progress Note Patient: Supriya QUIROGA Karon Provider: Chuck Chen DPM :1955 A ge:69 Y S ex:Female Date:11/28/2024 Address:[address] [place] [address] [address], [place], [place] Pcp:Carmen Santiago Subjective: * Chief Complaints: * [address] Yancey. * Medical History: Objective: * Vitals: Assessment: Plan: * Treatment: * Images: * The named appointment provid er may or may not be the originator of this progress note, and it is not deemed complete until electronically signed by the appointment provider. Sign off status: Pending * Provider: Chuck Chen, CALE Date: 0 11/28/2024 Generated for Cheryl bundy/Rashard/Pedro on: 1 09:23 AM EDT
--- NOTE | ~2025-05-03 | US_ITS ---
EXAMINATION: US KIDNEY BILATERAL HISTORY: N13.2 - Hydronephrosis with renal and ureteral calculous obstruction TECHNIQUE: Real-time grayscale ultrasound imaging of the kidneys was performed and images were reviewed. COMPARISON: Comparison is made with the prior examination dated 09/18/2024. FINDINGS: Right kidney: The right kidney measures 11.0 x 5.5 x 5.2 cm. Renal parenchymal echotexture and thickness are normal. There are no masses. There is a 3 mm nonobstructing calculus at the upper pole. There is no hydronephrosis. Left Kidney: The left kidney measures 12.2 x 5.6 x 5.6 cm. Renal parenchymal echotexture and thickness are normal. There are no masses. There is a 5 mm nonobstructing calculus in the interpolar region. No hydronephrosis. US/US renal BI IMPRESSION: Bilateral nephrolithiasis as described. No hydronephrosis. Electronically signed by: Celso Dumas MD 05/03/2025 02:40 PM EDT
--- OUTSIDE RECORDS SUMMARY | 2025-05-03 17:38 | XMS_ITS | Patient Health Record ---
Author Organization [facility] Address [address] [facility] [place] [address] Care Team Providers Care General Ophthalmologist Name Role Phone Carmen Santiago Primary Care Provider Unavailab Risa Castellanos Unavailable [phone] Nyla Welsh Unavailable [phone] Allergies Allergen (clinical drug ingredient) Drug/Non Drug [...] Polyneuropathy due to type 2 diabetes mellitus (651304209) Type 2 diabetes mellitus with diabetic polyneuropathy (E11.42) Active confirmed Vital Signs Blood pressure diastolic 70 mm Hg 03/13/2025 Height 4ft 11in in 03/13/2025 Blood pressure systolic 160 mm Hg 03/13/2025 Weight 235 lbs 03/13/2025 BMI 47.46 kg/m2 03/13/2025 Encounters Encounter Location Date Provider Diagnosis [address] [address] 06/30/2024 Risa Chen Type 2 diabetes mellitus with diabetic polyneuropathy E11.42 and Xerosis of skin L85.[address] [address] 09/13/2024 Risa Chen Type 2 diabetes mellitus with diabetic polyneuropathy E11.42 ; Xerosis of skin L85.3 ; Other hammer toe(s) (acquired), right foot M20.41 and Other hammer toe(s) (acquired), left foot M20.[address] [address] 12/07/2024 Nyla Welsh Type 2 diabetes mellitus with diabetic polyneuropathy E11.[address] [address] 03/13/2025 Risa Chen Type 2 diabetes mellitus [...] Provider Name:Risa singh, 05/29/2025 11:00:00 AM, [address] [place] [address], [place], [address], Insurance Providers Payer Name Payer Address Payer Phone Subscriber Number Group Number Insured Name Patient Relationship to Insured Coverage Start Date Coverage End Date [facility] [employer] Claims [address] [facility] [place] [id number] Karon Howard Self - patient is the insured Medical (General) History Medical History History ICD Code Arthritis asthma type I diabetes Headaches High blood pressure Cataracts Joint implants/screws Cholesterol Surgical History Surgery Date(Month/Year) cataract removal 06/2024
--- OUTSIDE RECORDS SUMMARY | 2025-05-03 17:38 | XMS_ITS | Encounter Summary ---
Author Organization [facility] Address [address] [place] [address] [address] [place] [address] Care Team Providers Care Crime Scene Analyst Name Role Phone Amina Nieves MD Primary Care Provider Reason for Visit * Reason Comments Med Refill Encounter Details Date Type Department Care Team ([facility] st Contact Info) Description 01/23/2023 Refill [facility] MEDICINE [address] [place] [address] Amina Nieves MD [address] [place] [address] Social History Tobacco Use Types Packs/Day Years [...] documented as of this encounter Care Teams Crime Scene Analyst Relationship Specialty Start Date End Date Amina Nieves MD [address] [place] [address] PCP - General Family Medicine 04/07/21 documented as of this encounter
--- OUTSIDE RECORDS SUMMARY | 2025-05-03 17:38 | XMS_ITS | Encounter Summary ---
Demographics Address [address] [place] [address] [address] [place] [address] Work Phone Mobile Phone Home Phone Preferred Language es Marital Status Single Adventism Affiliation Unknown Race Other Race Ethnic Group Unknown Author Organization [facility] Address [address] [place] [address] [address] [place] [address] Care Team Providers Care Machine Adjuster Name Role Phone Amina Nieves MD Primary Care Provider Encounter Details Date Type Department Care Team (Late st Contact Info) Description 04/30/2025 Orders Only GENERIC EXTERNAL DATA DEPARTMENT Provider, [...] Priority Date/Time Associated Diagnosis Comments US RENAL COMPLETE Routine 05/03/2025 2:1 8 PM EDT HEMATOXYLIN AND EOSIN STAIN Routine 04/30/2025 11:11 AM EDT documented in this encounter Results * US Renal Complete (05/03/2025 2:18 PM EDT) Anatomical Region Laterality Modality Kidney Ultrasound 05/03/2025 2:18 PM EDT Narrative 05/03/2025 2:43 PM EDT [place] [address] Ultrasound Report Signed Patient: Karon Nur MR#: [id number] : 1955 Acct:[id number] Age/Sex: 70 / F ADM Date: 05/03/25 Loc: . Attending Dr: Lauren Summers [facility] Ordering Physician: Isaiah Navarrete MD Date of Service: 05/03/25 Procedure(s): US renal BI Accession Number(s): [id number] cc: Isaiah Navarrete MD; Amina Nieves Reason for Exam: N13.2 - Hydronephrosis with renal and ureteral calculous obstruction EXAMINATION: US KIDNEY BILATERAL HISTORY: N13.2 - Hydronephrosis with renal and ureteral calculous obstruction TECHNIQUE: Real-time grayscale ultrasound imaging of the kidneys was performed and images were reviewed. COMPARISON: Comparison is made with the prior examination dated 09/18/2024. FINDINGS: Right kidney: The right kidney measures 11.0 x 5.5 x 5.2 cm. Renal parenchymal echotexture and thickness are normal. There are no masses. There is a 3 mm nonobstructing calculus at the upper pole. There is no hydronephrosis. Left Kidney: The left kidney measures 12.2 x 5.6 x 5.6 cm. Renal parenchymal echotexture and thickness are normal. There are no masses. There is a 5 mm nonobstructing calculus in the interpolar region. No hydronephrosis. US/US renal BI IMPRESSION: Bilateral nephrolithiasis as described. No hydronephrosis. Electronically signed by: Celso Dumas MD 05/03/2025 02:40 PM EDT RP Dictated By: Celso Dumas MD Signed By: <Electronically signed by Celso Dumas MD in OV> 05/03/25 1440 DD/ 1418 TD/TT: 05/03/25 1428 Pattern Checker: Procedure Note Donotuseinterpreter, Image - 05/03/2025 [place] [address] Ultrasound Report Signed Patient: Ron Nur#: [id number] : 1955cct:[id number] Age/Sex: 70 / FADM Date: 05/03/25 Loc: .US Attending Dr: Lauren Summers [facility]- Ordering Physician: Isaiah Navarrete MD Date of Service: 05/03/25 Procedure(s): US renal BI Accession Number(s): [id number] cc: Isaiah Navarrete MD; Amina Nieves Reason for Exam: N13.2 - Hydronephrosis with renal and ureteral calculousobstruction EXAMINATION: US KIDNEY BILATERAL HISTORY: N13.2 - Hydronephrosis with renal and ureteral calculous obstruction TECHNIQUE: Real-time grayscale ultrasound imaging of the kidneys was performed and images were reviewed. COMPARISON: Comparison is made with the prior examination dated 09/18/2024. FINDINGS: Right kidney: The right kidney measures 11.0 x 5.5 x 5.2 cm. Renal parenchymal echotexture and thickness are normal. There are no masses. There is a 3 mm nonobstructing calculus at the upper pole. There is no hydronephrosis. Left Kidney: The left kidney measures 12.2 x 5.6 x 5.6 cm. Renal parenchymal echotexture and thickness are normal. There are no masses. There is a 5 mm nonobstructing calculus in the interpolar region. No hydronephrosis. US/US renal BI IMPRESSION: Bilateral nephrolithiasis as described. No hydronephrosis. Electronically signed by: Celso Dumas MD 05/03/2025 02:40 PM EDT Dictated By: Celso Dumas MD Signed By: <Electronically signed by Celso Dumas MD in OV> 05/03/25 1440 DD/ 1418 TD/TT: 05/03/25 1428 Pattern Checker: [facility] External Provider IMG US PROCEDURES Edited Result - Final * Hematoxylin and Eosin Stain (04/30/2025 11:11 AM EDT) 04/30/2025 11:1 1 AM EDT 04/30/2025 12:06 PM EDT [facility] LABS - 05/02/2025 11:14 AM EDT ----- ------- Name: Adan RiverKaron Age/Sex: 70/F : 1955 Unit#: [id number] Attend Dr: Abbi Solis MD Re04/30/25 Status: [facility] Location: [facility] Disch: ----- ------- SPEC : [id number] RECD: 04/30/25 STATUS: MARGARET LANDA NUM: [id number] JERROD: 04/30/[address] [facility] [address]: Abbi Solis MD ENTERED: 04/30/25 SP TYPE: Surgical OTHR DR: Amina Nieves ORDERED: HE Stain/9, Gross Micro L4/3 Diagnosis A. Colon, sigmoid nodule, biopsy: Colonic mucosa with mild surface hyperplastic changes. B. Colon, transverse, polypectomy: Tubular adenoma; negative for high-grade dysplasia or carcinoma. C. Colon, descending polyp, biopsy: Colonic mucosa with mild surface hyperplastic changes. Clinical History Pre-Op Dx: Screening Post-Op Dx: Colon polyps, diverticulosis, hemorrhoids Microscopic Description A-C. Microscopic sections reviewed. Material Received A. Sigmoid nodule bx's B. Transverse colon polyp C. Descending colon polyp bx Gross Description Received in 3 parts. A. Received in formalin labeled sigmoid nodule biopsies are 4 fragments of james-white soft tissue measuring 0.2-0.3 cm in greatest dimension which are wrapped in lens paper and entirely submitted for microscopic examination, 4 pieces in cassette A. B. Received in formalin labeled transverse colon polyp is a fragment of pink-james soft tissue measuring 0.3 cm in greatest dimension which is wrapped in lens paper and entirely submitted for microscopic examination, 1 piece in cassette B. C. Received in formalin labeled descending colon polyp are 3 fragments of james-white soft tissue measuring 0.2-0.3 cm in greatest dimension which are wrapped in lens paper and entirely submitted for microscopic examination, 3 pieces in cassette C. ([facility]) CONTINUED ON NEXT PAGE ----- ------- Name: Karon Nur Age/Sex: 70/F : 1955 Unit#: [id number] Attend Dr: Abbi Solis MD Re04/30/25 Status: [facility] Location: [facility] Disch: ----- ------- SPEC : [id number] RECD: 04/30/25 STATUS: MARGARET ISAIASAra NUM: [id number] JERROD: 04/30/[address] [facility] [address]: Abbi Solis MD ENTERED: 04/30/25 SP TYPE: Surgical OTHR DR: Amina Nieves ORDERED: HE Stain/9, Gross Micro L4/3 IHC S/NG Disclaimer NOTE: Unless otherwise stated, all tissue is formalin-fixed and paraffin-embedded. Some or all of the immunohistochemical tests reported herein may have been developed and their performance characteristics determined by [facility]. They have not been cleared or approved by the U.S. Food and Drug Administration (FDA). However, the FDA has determined that such clearance or approval is not necessary. This laboratory is certified under the Clinical Laboratory Improvement Amendments of 1988 (CLIA) as qualified to perform high complexity clinical laboratory testing. Copies To: Amina Nieves [address] [address] Abbi Solis MD [facility] [address] [place] [address] ----- ------- Signed (signature on file) Abdi Maynard MD 05/02/25 1114 ----- ------- END OF REPORT us Generic External Data Provider LAB BLOOD ORDERAB LES Final Result [facility] [address] [place] [address] [phone] documented in this encounter Visit Diagnoses Not on filedocumented in this encounter Additional Health Concerns Assessment Noted Time PHQ-9 Depression Total Score: 0 10/21/19 25 10:26 AM EDT documented as of this encounter Care Teams Machine Adjuster Relationship Specialty Start Date End Date Amina Nieves MD [address] [place] [address] PCP - General Family Medicine 04/07/21 documented as of this encounter
--- OUTSIDE RECORDS SUMMARY | 2025-05-03 17:38 | XMS_ITS | Encounter Summary ---
Author Organization [facility] Address [address] [place] [address] [address] [place] [address] Care Team Providers Care Multifocal Lens Assembler Name Role Phone Amina Nieves MD Primary Care Provider [phone] Encounter Details Date Type Department Care Team (Late st Contact Info) Description 10/26/2024 Telephone [facility] MEDICINE [address] [place], [place] [phone] Amina Nieves MD [address] [place], [place] [phone] Social History Tobacco Use Types Packs/Day Years [...] documented as of this encounter Care Teams Multifocal Lens Assembler Relationship Specialty Start Date End Date Amina Nieves MD [address] [place] [address] PCP - General Family Medicine 04/07/21 documented as of this encounter
--- OUTSIDE RECORDS SUMMARY | 2025-05-03 17:38 | XMS_ITS | Patient Health Record ---
Demographics Address [address] [facility] [address] [place] [address] Mobile Preferred Language Unknown Marital Status Unknown Buddhist Affiliation Unknown Race Ethnic Group or Author Organization [facility] Address [address] [place] [address] Care Team Providers Care Kiln Maintenance Name Role Phone Tyson Cam NP Primary Care Provider Celso Zepeda Unavailable [phone] Allergies Allergen (clinical drug ingredient) Drug/Non Drug [...] tablet with a meal Orally Once a day; Duration: 30 day(s) Active Ventolin HFA 108 (90 Base) MCG/ACT 2 puffs as needed Inhalation every 4 hrs Active Magnesium Oxide 400 MG 1 tablet as neede d Orally Once a day; Duration: 30 day(s) Active Meclizine HCl 25 MG 1 tablet as needed O rally Once a day Active MiraLax (colon prep) 8.3 ounce ((238) grams mixed with Gatorade or Crystal Light orally begin at 5:00 p.m. the day before the procedure; Duration: 1 day 08/03/2019 Active glipiZIDE XL 2.5 MG 1 tablet with breakf ast Orally Once a day; Duration: 30 day(s) Active Dulcolax (colon prep) 5 MG take at 3:00 p.m and 7:00p.m. Orally two tablets twice a day for one day; Duration: 1 day 08/03/2019 Active Metoprolol Succinate ER 50 MG 1 tablet Orally Once a day Active Irbesartan 150 MG 2 tablets Orally Onc e a day Active Flonase 50 MCG/ACT 1 spray in each nost ril Nasally Once a day Active Dicyclomine HCl 10 MG 1-2 capsules Orall y Four times a day prn abndominal pain/doscomfort; Duration: 30 day(s) Active amLODIPine Besylate 5 MG [...] Problem Status W/U Status Risk Notes Problem Screening for malignant neoplasm of colon (666670890) Encounter for screening for malignant neoplasm of colon (Z12.11) Active confirmed Problem History of adenomatous polyp of colon (337148404) History of adenomatous polyp of colon (Z86.010) Active confirmed Problem Irritable bowel syndrome (99101566) Irritable bowel syndrome without diarrhea (K58.9) Active confirmed Problem Left upper quadrant pain (860439979) Abdominal pain, left upper quadrant (R10.12) Active confirmed Plan Of Treatment Future Test Test Name Order Date COLONOSCOPY 05/23/2013 COLONOSCOPY 08/03/2019 Insurance Providers Payer Name Payer Address Payer Phone Subscriber Number Group Number Insured Name Patient Relationship to Insured Coverage Start Date Coverage End Date [facility] [address] [place] [address] [id number] BELKIS SAMPSON Self - patient is the [...]
--- OUTSIDE RECORDS SUMMARY | 2025-05-03 17:38 | XMS_ITS | Encounter Summary ---
Author Organization [employer] Address [address] [place] [address] [address] [place] [address] Care Team Providers Care Car Oiler Name Role Phone Amina Nieves MD Primary Care Provider [phone] Encounter Details Date Type Department Care Team (Late st Contact Info) Description 01/26/2024 Orders Only [facility] MEDICINE [address] [place], [place] [phone] Amina Nieves MD [address] [place], [place] [phone] Social History Tobacco Use Types Packs/Day Years [...] documented as of this encounter Care Teams Car Oiler Relationship Specialty Start Date End Date Amina Nieves MD [address] [place] [address] PCP - General Family Medicine 04/07/21 documented as of this encounter
--- OUTSIDE RECORDS SUMMARY | 2025-05-03 17:38 | XMS_ITS | Encounter Summary ---
Author Organization [facility] Address [address] [place] [address] 7[address] [place] [address] Care Team Providers Care Surveillance Agent Name Role Phone Amina Nieves MD Primary Care Provider [phone] Encounter Details Date Type Department Care Team (Late st Contact Info) Description 10/27/2022 Orders Only [facility] MEDICINE [address] [place], [place] [phone] Amina Nieves MD [address] [place], [place] [phone] Vaginal bleeding (Primary Dx); Endometrial thickening on [...] documented as of this encounter Care Teams Surveillance Agent Relationship Specialty Start Date End Date Amina Nieves MD [address] [place] [address] PCP - General Family Medicine 04/07/21 documented as of this encounter
--- OUTSIDE RECORDS SUMMARY | 2025-05-03 17:38 | XMS_ITS | Encounter Summary ---
Author Organization [facility] [facility] Address [address] [place] [address] [address] [place] [address] Care Team Providers Care Sorter Packer Name Role Phone Amina Nieves MD Primary Care Provider [phone] Reason for Visit * Reason Comments Med Refill Encounter Details Date Type Department Care Team ([facility] st Contact Info) Description 05/07/2023 Refill [facility] MEDICINE [address] [place], [place] [phone] Amina Nieves MD [address] [place], [place] [phone] Rash Social History Tobacco Use Types Packs/Day [...] documented as of this encounter Care Teams Sorter Packer Relationship Specialty Start Date End Date Amina Nieves MD [address] [place] [address] PCP - General Family Medicine 04/07/21 documented as of this encounter
--- OUTSIDE RECORDS SUMMARY | 2025-05-03 17:38 | XMS_ITS | Encounter Summary ---
Author Organization [employer] [facility] Address [address] [place] [address] [address] [place] [address] Care Team Providers Care Partition Assembly Machine Operator Name Role Phone Amina Nieves MD Primary Care Provider [phone] Reason for Referral * Consultation (Routine) - Authorized Specialty Diagnoses / Procedures Referred By Contac t Referred To Contact Pharmacy Diagnoses HTN (hypertension) Amina Nieves MD [address] [place] [address] Phone: tel: fax: Referral ID Status Reason Start Date Expiration Date Visits Requested Visits Authorized [id number] Authorized Continuity of Care 10/25/2024 10/25/2025 6 6 Encounter Details Date Type Department Care Team (Late st Contact Info) Description 10/25/2024 Orders Only [facility] MEDICINE [address] [place], [place] [phone] Amina Nieves MD [address] [place], [place] [phone] HTN (hypertension) (Primary Dx) Social History Tobacco [...] documented as of this encounter Care Teams Partition Assembly Machine Operator Relationship Specialty Start Date End Date Amina Nieves MD [address] [place] [address] PCP - General Family Medicine 04/07/21 documented as of this encounter
--- OUTSIDE RECORDS SUMMARY | 2025-05-03 17:38 | XMS_ITS | Clinical Summary ---
Demographics Address [address] [place] [address] [address] [place] [address] Work Phone Mobile Phone Home Phone Preferred Language es Marital Status Single Latter Day Affiliation Unknown Race Other Race Ethnic Group Unknown Author Organization [employer] Address [address] [place] [address] 7t [place] [address] Care Team Providers Care Drug Room Clerk Name Role Phone Amina Nieves MD Primary Care Provider [phone] Allergies Active Allergy Reactions Criticality Noted Date [...] 3 2024 Active Blood Glucose Monitoring Suppl (HireAHelper Lite) w/Device kitIndications:Ty pe 2 diabetes mellitus with diabetic neuropathy, without long-term current use of insulin ([facility]) Use to test blood [...] constipation MIX DIRECTED AND TAKE DIRECTED BY [facility] 2024 Active ferrous gluconate (Fergon) 324 [...] bedtime for wheezing. 75 mL 11 03/23 Active fluticasone-salme terol (Advair) 45-21 MCG/ACT [...] FOR DIZZINESS 60 tablet 3 2024 Active meclizine (Antivert) 25 MG tabletIndications :Dizziness TAKE 1 TABLET BY MOUTH THREE TIMES DAILY NEEDED FOR DIZZINESS 60 tablet 3 04/05 Discontinued Active Problems Problem Noted Date Diagnosed [...] exam 10/11/2024 Localized osteoarthritis of right knee 3 Assessment & Plan (12/23/2023 2:31 PM EDT): [...] obesity (CMS/HCC) 03/12/2023 Weakness 03/12/2023 Endometrial adenocarcinoma ([facility]/HCC) 12/30/2022 Overview (12/30/2022): Adenocarcinoma, Endometrioid, FIGO grade 2 diagnoed on endometrial biopsy with Dr. Ying 01/2023 - referred to [facility] by Dr. Ying with Dr. Rodriguez at [facility] on 01/14/2023 at 10:00. -CT scan of abdomen and pelvis and CA [address] Ying 01/2023 Primary localized osteoarthrosis of ankle and fo ot 06/22/2022 Polyneuropathy due to type 2 diabetes mellitus 1 08/23/2021 Assessment & Plan (12/23/2023 2:33 PM EDT): Continue Gabapentin 100mg BID Continue A1C 7.0 goal Has seen [facility] Assessment & Plan (06/22/2022 10:35 AM [...] Assessment & Plan (12/23/2023 2:30 PM EDT): [facility]c removed uterus 01/2023 F/u q 6 months [...] Encounters Date Type Department Care Team Description 04/30/2025 Orders Only GENERIC EXTERNAL DATA DEPARTMENT Provider, Generic External Data 04/05/2025 Refill [facility] [address] [place] [address] Amina Nieves MD Dizziness 04/02/2025 Orders Only GENERIC EXTERNAL DATA DEPARTMENT Provider, Generic External Data 03/29/2025 Refill [facility] [address] [place] [address] Amina Nieves MD Vaginal itching 03/24/2025 Refill [facility] [address] [place] [address] Amina Nieves MD 03/23/2025 9:00 AM EDT Office Visit [facility] [address] [place] [phone] Amina Nieves MD Type 2 diabetes mellitus with diabetic neuropathy, without long-term current use of insulin ([facility]) (Primary Dx); Iron deficiency anemia, unspecified iron deficiency anemia type; Mitral valve stenosis, unspecified etiology; Primary hypertension; Hypercholesterolemia; Severe obesity ([facility]); Gastroesophageal reflux disease, unspecified whether esophagitis present; Irritable bowel syndrome with constipation; Right kidney stone; Endometrial adenocarcinoma ([facility]); Localized osteoarthritis of right knee; Polyneuropathy due to type 2 diabetes mellitus ([facility]); Obstructive sleep apnea; Mild intermittent asthma without complication 03/23/2025 Travel 03/22/2025 Telephone [facility] [address] [place] [address] Amina Nieves MD chart prep 03/19/2025 9:20 AM EDT Office Visit [facility] [address] [place] [address] Terri Kruse NP Right kidney stone (Primary Dx); Low back pain, unspecified back pain laterality, unspecified chronicity, unspecified whether sciatica present; Drug-induced constipation 03/19/2025 Travel 03/19/2025 Refill [facility] [address] [place] [address] Amina Nieves MD 03/14/2025 Orders Only GENERIC EXTERNAL DATA DEPARTMENT Provider, Generic External Data 02/27/2025 Orders Only GENERIC EXTERNAL DATA DEPARTMENT Provider, Generic External Data 02/26/2025 Refill [facility] [address] [place] [address] Amina Nieves MD 02/14/2025 Refill [facility] [address] [address] Amina Nieves MD from Last 3 Months [...] years 1-dose series) 2013 Colonoscopy 10/17/2024 10/18/2019 Colorectal Cancer Screening 10/17/2024 COVID-19 Vaccine ( season) 2025 02/25/2022, 12/30/2020, 12/02/2020 Influenza Vaccine (#1) 2025 , 05/05/2023, 06/22/2022, Additional history exists Diabetes: Foot Exam 05/25/2025 [...] EOSIN STAIN Routine 04/30/2025 11:11 AM EDT FL GUIDANCE IN OR Routine 04/02/2025 3:4 2 PM EDT STONE ANALYSIS W/ IMAGE Routine 04/02/2025 3:36 PM EDT GROSS EXAM WITHOUT SLIDES Routine 04/02/2025 3:36 PM EDT GLUCOSE, WHOLE BLOOD Routine 04/02/2025 2:04 PM EDT RETICULOCYTE COUNT Routine 03/23/2025 10 :01 AM EDT Iron deficiency anemia, unspecified iron deficiency anemia type POCT GLUCOSE Routine 03/23/2025 9:17 AM EDT Type 2 diabetes mellitus with diabetic neuropathy, without long-term current use of insulin ([facility]) POCT URINALYSIS DIPSTICK Routine 03/19/2025 9:07 AM [...] Relevant to Health Maintenance Results * US Renal Complete (05/03/2025 2:18 PM EDT) Anatomical Region Laterality Modality Kidney Ultrasound 05/03/2025 2:18 PM EDT Narrative 05/03/2025 2:43 PM EDT [address] [address] Ultrasound Report Signed Patient: Karon Nur MR#: [id number] : 1955 Acct:[id number] Age/Sex: 70 / F ADM Date: 05/03/25 Loc: HO. Attending Dr: Lauren Summers [facility]- Ordering Physician: Isaiah Navarrete MD Date of Service: 05/03/25 Procedure(s): US renal BI Accession Number(s): [id number] cc: Isaiah Navarrete MD; Amina Nieves Reason [...] 05/03/25 1440 DD/ 1418 TD/TT: 05/03/25 1428 Machine Hoop Maker Helper: Procedure Note Donotuseinterpreter, Image - 05/03/2025 [place] [address] Ultrasound Report Signed Patient: Ron Nur#: [id number] : 1955cct:[id number] Age/Sex: 70 / FADM Date: 05/03/25 Loc: HO.US Attending Dr: Lauren Summers [facility] Ordering Physician: Isaiah Navarrete MD Date of Service: 05/03/25 Procedure(s): US renal BI Accession Number(s): [id number] cc: Isaiah Navarrete MD; Amina Nieves Reason [...] 05/03/25 1440 DD/ 1418 TD/TT: 05/03/25 1428 Machine Hoop Maker Helper: [facility] External Provider IMG US PROCEDURES Edited Result - Final * Hematoxylin and Eosin Stain (04/30/2025 11:11 AM EDT) 04/30/2025 11:1 1 AM EDT 04/30/2025 12:06 PM EDT [facility] - 05/02/2025 11:14 AM EDT ----- ------- Name: Karon Nur Age/Sex: 70/F : 1955 [id number] [id number] Attend Dr: Abbi Solis MD Re04/30/25 Status: [facility] Location: [facility] Disch: ----- ------- SPEC : [id number] RECD: 04/30/25 STATUS: MARGARET ISAIASAra NUM: [id number] JERROD: 04/30/25-1111 [facility] DR: Abbi Solis MD ENTERED: 04/30/25 [...] microscopic examination, 3 pieces in cassette C. ([facility]) CONTINUED ON NEXT PAGE ----- ------- Name: Karon Nur Age/Sex: 70/F : 1955 Unit#: [id number] Attend Dr: Abbi Solis MD Re04/30/25 Status: [facility] Location: [facility] Disch: ----- ------- SPEC : [id number] RECD: 04/30/25 STATUS: TEAGANEstella SYEDA NUM: [id number] JERROD: 04/30/25 [facility] DR: Abbi Solis MD ENTERED: 04/30/25 SP TYPE: Surgical OTHR DR: Amina Nieves ORDERED: HE Stain/9, Gross Micro L4/3 IHC S/NG Disclaimer NOTE: Unless otherwise stated, all tissue is formalin-fixed and paraffin-embedded. Some or all of the immunohistochemical tests reported herein may have been developed and their performance characteristics determined by [facility]. They have not been cleared or approved by the U.S. Food and Drug Administration (FDA). However, the FDA has determined that such clearance or approval is not necessary. This laboratory is certified under the Clinical Laboratory Improvement Amendments of 1988 (CLIA) as qualified to perform high complexity clinical laboratory testing. Copies To: Amina Nieves [address] [phone] Abbi Solis MD [facility] [address] [place] [phone] ----- ------- Signed (signature on file) Abdi Maynard MD 05/02/25 1114 ----- ------- END OF REPORT us Generic External Data Provider LAB BLOOD ORDERAB LES Final Result [facility] [address] [place] [phone] * FL Guidance in OR (04/02/2025 3:42 PM EDT) Anatomical Region Laterality Modality X-Ray Angiograph y 04/02/2025 3:42 PM EDT Narrative 04/03/2025 8:17 AM EDT [address] [address] Fluoroscopy Report Signed Patient: Karon Nur MR#: [id number] : 1955 Acct:[id number] Age/Sex: 69 / F ADM Date: 04/02/25 Loc: HO.SSS Attending Dr: Isaiah Navarrete MD Ordering Physician: Isaiah Navarrete MD Date of Service: 04/02/25 Procedure(s): FL guidance in OR Accession Number(s): [id number] cc: Isaiah Navarrete MD; Amina Nieves Reason [...] Sam Lemon MD 04/03/2025 08:15 AM EDT RP Dictated By: Sam Lemon MD Signed By: <Electronically signed by Sam Lemon MD in OV> 04/03/25814 DD/ 1542 TD/TT: 04/02/25 1615 Machine Hoop Maker Helper: Procedure Note Donotuseinterpreter, Image - 04/03/2025 [place] [address] Fluoroscopy Report Signed Patient: Ron Nur#: [id number] : 1955cct:[id number] Age/Sex: 69 / FADM Date: 04/02/25 Loc: [facility] Attending Dr: Isaiah Navarrete MD Ordering Physician: Isaiah Navarrete MD Date of Service: 04/02/25 Procedure(s): FL guidance in OR Accession Number(s): [id number] cc: Isaiah Navarrete MD; Amina Nieves Reason [...] Sam Lemon MD 04/03/2025 08:15 AM EDT RP Dictated By: Sam Lemon MD Signed By: <Electronically signed by Sam Lemon MD in OV> 04/03/25 0815 DD/ 1542 TD/TT: 04/02/25 1615 Machine Hoop Maker Helper: [facility] External Provider IMG IR PROCEDURES Final Result * Gross Exam without slides (04/02/2025 3:36 PM EDT) 04/02/2025 3:36 PM EDT 04/02/2025 3:46 PM EDT [facility] - 04/04/2025 9:30 AM EDT ----- ------- Name: Karon Nur Age/Sex: 69/F : 1955 Unit#: [id number] Attend Dr: Isaiah Navarrete MD Re04/02/25 Status: [facility] Location: [facility] Disch: ----- ------- SPEC : [id number] RECD: 04/02/25 STATUS: MARGARET LANDA NUM: [id number] JERROD: 04/02/25 [facility] DR: Isaiah Navarrete MD ENTERED: 04/02/25 [...] diameter. The specimen is entirely submitted to [facility] for chemical analysis. No sections taken. ([facility]) IHC S/NG Disclaimer NOTE: Unless otherwise stated, all tissue is formalin-fixed and paraffin-embedded. Some or all of the immunohistochemical tests reported herein may have been developed and their performance characteristics determined by [facility]. They have not been cleared or approved by the U.S. Food and Drug Administration (FDA). However, the FDA has determined that such clearance or approval is not necessary. This laboratory is certified under the Clinical Laboratory Improvement Amendments of 1988 (CLIA) as qualified to perform high complexity clinical laboratory testing. Copies To: Isaiah Navarrete MD [facility] [address] [place] [address] [address] [place] [address] CONTINUED ON NEXT PAGE ----- ------- Name: Karon Nur Age/Sex: 69/F : 1955 Unit#: [id number] Attend Dr: Isaiah Navarrete MD Re04/02/25 Status: [facility] Location: [facility] Disch: ----- ------- SPEC : [id number] RECD: 04/02/25 STATUS: MARGARET LANDA NUM: [id number] JERROD: 04/02/25 [facility] DR: Isaiah Navarrete MD ENTERED: 04/02/25 SP TYPE: Surgical OTHR DR: Amina Nieves ORDERED: GO Copies To: (Continued) Amina Nieves [address] [place] [address] ----- ------- Signed (signature on file) Sobia Huynh MD 04/04/259[address] ----- ------- END OF REPORT us Generic External Data Provider LAB BLOOD ORDERAB LES Final Result [facility] [address] [place] [address] [phone] * Stone Analysis with Image (04/02/2025 3:36 PM EDT) Component 1 SEE NOTE [facility] Comment:Calcium Oxalate Johnson hydrate (Whewellite) 80%Uric Acid 20% Stone Weight 0.139 g [facility] Comment:Formalin, surgical g el, tape adhesive or transport mediainterfere with the analytical procedure. Follow up testingwith the UroRisk(R) Panel is suggested for affected samples,if clinically indicated.This test was developed and its analytical performancecharacteristics have been determined by [facility].It has not been cleared or approved by the FDA. This assayhas been validated pursuant to the CLIA regulations and isused for clinical purposes.THIS TEST WAS PERFORMED AT:[facility]/[employer] [id number] [place] [address]SAWTOEDWIN MARTINS MD,PHD,LORIN [facility] KIDNEY [facility] 04/02/2025 3:36 PM EDT 04/03/2025 3:36 PM EDT Narrative [facility] - 04/12/2025 9:29 PM EDT Kidney [id number] Generic External Data Provider LAB BLOOD ORDERAB LES Final Result Performing Organization Address [facility]/ZIP Co de Phone Number [facility] [address] [place] [phone] * (ABNORMAL) Glucose, Whole Blood (04/02/2025 2:04 PM EDT) Pathologist [facility] Glucose, Whole Blood 176(H) 60 - 115 mg/dL [facility] Comment:METER #: [id number] 04/02/2025 2:04 PM EDT 04/02/2025 2:10 PM EDT Generic External Data Provider LAB BLOOD ORDERAB LES Final Result Performing Organization Address [facility]/ZIP Co de Phone Number [facility] [address] [place] [phone] * (ABNORMAL) Reticulocyte Count (03/23/2025 10:01 AM EDT) Pathologist [facility] Reticulocytes Absolute 0.100(H) 0.026 - 0.095 X10*6/uL [facility] Immature Retic Fraction 21.8(H) 3.0 - 15.9 % [facility] Retic HGB Equivalent 29.2(L) 30.0 - 35.0 pg [facility] Reticulocyte Percent 2.4(H) 0.5 - 1.8 % [facility] Blood Venous blood specimen / Unknown 03/23/2025 10:01 AM EDT 03/23/2025 11:11 AM EDT Result [facility] Amina Nieves MD LAB BLOOD ORDERABLES Final Res ult [facility] [address] [place] [address] [phone] * (ABNORMAL) POCT Glucose (03/23/2025 9:17 AM EDT) Glucose Blood, POC 284(A) 60 - 200 mg/dL QC Media Lot # [id number] Lot# Expiration Date Blood Capillary blood specimen / Unknown 03/23/2025 9:17 AM EDT Result [facility] Amina Nieves MD POINT OF CARE TEST [...] Ok Urine 03/19/2025 9:07 AM EDT Result [facility] Terri Kruse NP POINT OF CARE TEST ENTER/EDIT OR DERABLES Final Result * CT Abdomen Pelvis w/o Contrast (03/15/2025 12:48 AM EDT) Anatomical Region Laterality Modality Body, Pelvis, Abdomen Computed T omography 03/15/2025 12:4 8 AM EDT Narrative 03/15/2025 12:50 AM EDT [address] [address] [address] Scan Report Signed Patient: Karon Nur MR#: [id number] : 1955 Acct:[id number] Age/Sex: 69 / F ADM Date: 03/14/25 Loc: HO.ED Attending Dr: Ordering Physician: Shahnaz Varghese MD Date of Service: 03/15/25 Procedure(s): CT abdomen pelvis wo IV con Accession Number(s): [id number] cc: Amina Nieves; Shahnaz Varghese MD Report Number: [id number]: Total DLP = 978.00 mGy-cm Reason for Exam: right flank pain CLINICAL HISTORY: right flank pain CT abdomen and pelvis without contrast Comparison: CT/REG/NY/SR - CT ABDOMEN PELVIS W IV CON [...] gastrointestinal tract is unremarkable. There is a lxqpy-vy-lbwcpush sized fat containing umbilical hernia. There are [...] MD in OV> 03/15/2547 DD/ TD/TT: 03/15/2547 Machine Hoop Maker Helper: Procedure Note Gaetano, Image - 03/15/[address] [place] [address] [address] Scan Report Signed Patient: Ron Nur#: [id number] : 1955cct:[id number] Age/Sex: 69 / FADM Date: 03/14/25 Loc: HO.ED Attending Dr: Ordering Physician: Shahnaz Varghese MD Date of Service: 03/15/25 Procedure(s): CT abdomen pelvis wo IV con Accession Number(s): [id number] cc: Amina Nieves; Shahnaz Varghese MD Report Number: [id number]: Total DLP = 978.00 mGy-cm Reason for Exam: right flank pain CLINICAL HISTORY: right flank pain CT abdomen and pelvis without contrast Comparison: CT/REG/[place]/SR - CT ABDOMEN PELVIS W IV CON [...] gastrointestinal tract is unremarkable. There is a chclw-zr-amihyvyf sized fat containing umbilical hernia. There are [...] MD in OV> 03/15/2547 DD/ TD/TT: 03/15/2547 Machine Hoop Maker Helper: [facility] External Provider IMG CT PROCEDURES Final Result * (ABNORMAL) Urinalysis, Complete, with Reflex to Culture (03/14/2025 10:50 PM EDT) Color Urine Yellow [facility] Appearance Urine Clear [facility] PH 5.5 5.0 - 9.0 [facility] Glucose Urine UA >=1000(A) Negative mg/dL [facility] Urine Blood Moderate (2+)(A) Negative [facility] Specific [place] - Urine 1.025 1.005 - 1.025 [facility] Urine Protein Trace Neg-Trace mg/dL [facility] Urine Ketones Negative Negative mg/dL [facility] Nitrite Urine Negative Negative [facility] Leukocyte Esterase Urine Negative Negative [facility] RBC Urine 11-20(A) 0 - 2 /HPF [facility] Urine WBC 0-5 0 - 5 /HPF [facility] Urine Squamous Epithelial Cell 0-2 0 - 2 /HPF [facility] Urine Bacteria None Seen None Seen [facility] Hyaline Casts, Urine 0-2 0 - 2 /LPF [facility] 03/14/2025 10:5 0 PM EDT 03/14/2025 10:53 PM EDT Narrative [facility] - 03/14/2025 11:17 PM EDT Urine, Clean Catch Generic External Data Provider LAB URINE ORDERAB LES Final Result [facility] [address] [place] [address] [phone] * (ABNORMAL) CBC auto differential (03/14/2025 8:52 PM EDT) White Blood Count 9.5 4.8 - 10.8 X10*3/uL [facility] Red Blood Count 4.25 4.20 - 5.50 X10*6/uL [facility] Hemoglobin 11.7(L) 12.0 - 16.0 g/dl [facility] Hematocrit 33.9(L) 37.0 - 47.0 % [facility] Mean Corpuscular Volume 79.8(L) 80.0 - 98.0 fL [facility] Mean Corpuscular Hemoglobin 27.5 27.0 - 33.0 pg [facility] Mean Corpuscular HGB Conc 34.5 31.0 - 35.0 g/dl [facility] Red Cell Distribution Width 14.2 11.0 - 16.0 % [facility] Platelet Count 244 160 - 400 X10*3/uL [facility] Mean Platelet Volume 11.9 9.4 - 12.3 fL [facility] Neutrophils Percent Auto 78.3(H) 45 - 73 % [facility] Imm Gran Pct Auto 0.2 0.0 - 0.4 % [facility] Lymphocytes Percent Auto 14.4(L) 20 - 40 % [facility] Monocytes Percent Auto 5.8 2 - 11 % [facility] Eosinophils Percent Auto 1.0 0 - 4 % [facility] Basophils Percent Auto 0.3 0 - 2 % [facility] NRBC Pct Auto 0.0 0.0 - 0.2 /100WBC [facility] Neutrophils Absolute Auto 7.4 2.0 - 8.3 x10*3/uL [facility] Imm Gran Abs Auto 0.02 0.00 - 0.03 X10*3/uL [facility] Lymphocytes Absolute Auto 1.4 1.2 - 4.9 X10*3/uL [facility] Monocytes Absolute Auto 0.6 0.1 - 1.2 X10*3/uL [facility] Eosinophils Absolute Auto 0.1 0.0 - 0.4 X10*3/uL [facility] Basophils Absolute Auto 0.0 0.0 - 0.2 X10*3/uL [facility] NRBC Abs Auto 0.000 0.0 - 0.012 X10*3/uL [facility] 03/14/2025 8:52 PM EDT 03/14/2025 8:57 PM EDT Generic External Data Provider LAB BLOOD ORDERAB LES Final Result Performing Organization Address [facility]/ZIP Co de Phone Number [facility] [address] [place] [phone] * Lipase (03/14/2025 8:52 PM EDT) Pathologist [facility] Lipase 36 8 - 78 U/L [facility] 03/14/2025 8:52 PM EDT 03/14/2025 8:57 PM EDT Generic External Data Provider LAB BLOOD ORDERAB LES Final Result Performing Organization Address [facility] Co de Phone Number [facility] [address] [place] [phone] * (ABNORMAL) Comprehensive Metabolic Panel (03/14/2025 8:52 PM EDT) Sodium 136 135 - 145 mmol/L [facility] Potassium 4.0 3.3 - 5.1 mmol/L [facility] Chloride 104 96 - 108 mmol/L [facility] Carbon Dioxide 23 22 - 29 mmol/L [facility] Anion Gap 13 12 - 20 [facility] Urea Nitrogen (BUN) 21(H) 9 - 16 mg/dL [facility] Creatinine, Serum 1.24 0.5 - 1.4 mg/dL [facility] Creatinine Clr Calc Pharmacy 45.2 [facility] Comment:Provided height and weight: 149.86 cm,107.5 kg.eGFR (calculated from the MDRD study equation) and eCrCl(calculated from the Cockcroft-Gault equation) are based ondifferent parameters and may not yield comparable results.If eCrCl result is absurd, please check patient'sheight/weight. Estimated Glomerular Filt Rate 43 [facility] Comment:Chronic Kidney Disea se: Estimated GFR < 60 mL/min/1.53t5Jhnwsi Kidney Disease: Estimated GFR < 15 mL/min/1.73m2 Glucose 349(H) 60 - 115 mg/dL [facility] Calcium 9.8 8.4 - 10.2 mg/dL [facility] Bilirubin, Total 0.6 0.0 - 1.0 mg/dL [facility] Aspartate Amino Transferase 27 5 - 31 U/L [facility] Alanine Aminotransferase 35(H) 0 - 31 U/L [facility] Total Protein 7.2 6.5 - 8.0 g/dL [facility] Albumin Level 4.2 3.5 - 5.0 g/dL [facility] Alkaline Phosphatase 121(H) 39 - 117 U/L [facility] 03/14/2025 8:52 PM EDT 03/14/2025 8:57 PM EDT us Generic External Data Provider LAB BLOOD ORDERAB LES Final Result [facility] [address] [place] [phone] * (ABNORMAL) Hemoglobin A1c (02/27/2025 7:59 AM EDT) Hemoglobin A1c 9.1(H) <6.0 % [facility] Comment:Hemoglobin A1C Refer ence Range Adults: 4.8 - 6.0 % Non diabetic: < 6.0 % Goal: < 7.0 %Additional Action Suggested: > 8.0 %Note: Hemoglobin A1c results are invalid for patients with abnormal amounts of HbF. Blood transfusions may impact the HbA1c concentration in the patient sample. Estimated Average Glucose 214 mg/dL [facility] Comment:eAG = Estimated ave rage glucose which is %A1C expressed asaverage glucose, using the formula of the A4Z-KpxxcrfLlqolxk Glucose study (ADAG), Diabetes Care, Vol.31,#8,Feb. 2007 02/27/2025 7:59 AM EDT 02/27/2025 7:59 AM EDT Generic External Data Provider LAB BLOOD ORDERAB LES Final Result [facility] [address] [place] [phone] * (ABNORMAL) Hepatic Function Panel (02/27/2025 7:59 AM EDT) Bilirubin, Total 0.7 0.0 - 1.0 mg/dL [facility] Bilirubin, Direct 0.2 0.0 - 0.5 mg/dL [facility] Aspartate Amino Transferase 30 5 - 31 U/L [facility] Alanine Aminotransferase 36(H) 0 - 31 U/L [facility] Total Protein 7.3 6.5 - 8.0 g/dL [facility] Albumin Level 4.4 3.5 - 5.0 g/dL [facility] Alkaline Phosphatase 118(H) 39 - 117 U/L [facility] 02/27/2025 7:59 AM EDT 02/27/2025 7:59 AM EDT Generic External Data Provider LAB BLOOD ORDERAB LES Final Result Performing Organization Address City/[facility]/ZIP Co de Phone Number [facility] [address] [place] [phone] * BI Mammogram Screening Tomosynthesis Bilateral (01/29/2025 8:15 AM EDT) Anatomical Region Laterality Modality Breast Bilateral Mammography 01/29/2025 8:15 AM EDT Narrative 02/05/2025 5:09 PM EDT [facility] [address] [place] [address] [place] [address] Mammography Report Signed Patient: Karon Nur MR#: [id number] : 1955 Acct:[id number] Age/Sex: 69 / F ADM Date: 01/29/25 Loc: HO.MAMMO Attending Dr: Amina Nieves MD Ordering Physician: Amina Nieves Results: 1Negative Date of Service: 01/29/25 Follow Up: 1 Year From Orig inal Mammogram Procedure(s): MM tomosynthesis screening BI Accession Number(s): [id number] cc: Amina Nieves EXAMINATION: MM SCREENING DIGITAL [...] 02/05/25 1705 DD/ 0815 TD/TT: 01/29/25 0830 Machine Hoop Maker Helper: Procedure Note Donotuseinterpreter, Image - 02/05/2025 [facility] [address] [place] [address] Mammography Report Signed Patient: Ron Nur#: [id number] : 1955cct:[id number] Age/Sex: 69 / FADM Date: 01/29/25 Loc: HO.MAMMO Attending Dr: Amina Nieves MD Ordering Physician: Nicole Nievesults: 1Negative Date of Service: 01/29/25Follow Up: 1 Year From Orig ina Mammogram Procedure(s): MM tomosynthesis screening BI Accession Number(s): [id number] cc: Amina Nieves EXAMINATION: MM SCREENING DIGITAL [...] 02/05/25 1705 DD/ 0815 TD/TT: 01/29/25 0830 Machine Hoop Maker Helper: us Amina Nieves MD IMG BI PROCEDURES Final Result * (ABNORMAL) Lipid Panel with Reflex to Direct LDL (10/10/2024 7:54 AM EDT) Triglycerides 248(H) <150 mg/dL [facility] Comment:Desirable Triglyceri de: less than 150 mg/dLBorderline High Triglyceride 150-199 mg/dLHigh Triglyceride: 200-499 mg/dLVery High Triglyceride: greater than or equal to 5OO mg/dL Cholesterol 207(H) <200 mg/dL [facility] Comment:Desirable Cholestero l: less than 200 mg/dLBorderline High Cholesterol: 200-239 mg/dLHigh Cholesterol: greater than 239 mg/dL LDL Cholesterol Calculated 116(H) <100 mg/dL [facility] Comment:Desirable LDL: less than 100 mg/dLNear Optimal/Above Optimal LDL: 110- 129 mg/dLBorderline High LDL: 130-159 mg/dLHigh LDL: 160-189 mg/dLVery High LDL: greater than or equal to 190 mg/dL HDL Cholesterol 42 >40 mg/dL [facility] Comment:Desirable HDL: great er than 40 mg/dL Note: This HDL assay may give artificially low results in patients with liver disease. 10/10/2024 7:54 AM EDT 10/10/2024 7:54 AM EDT us Generic External Data Provider LAB BLOOD ORDERAB LES Final Result [facility] [address] [place] [phone] * Albumin, Random Urine W/Creatinine (05/25/2024 9:46 AM EST) Creatinine, Urine 85.32 mg/dL [facility] Microalbumin Urine 23.0 mg/L [facility] Microalbum Creatinine Ratio Ur 26.9 <30 ug/mg cr [facility] Comment:Albumin/Creatinine R atio Reference Ranges: Normal: < 30 ug/mg creatinine Microalbuminuria: 30 - 300 ug/mg creatinineClinical Albuminuria: > 300 ug/mg creatinine Urine (Urine, Random) 05/25/2024 9:46 AM EST 05/25/2024 11:28 AM EST Amina Nieves MD LAB URINE ORDERABLES Final Res ult Performing Organization Address [facility] Co de Phone Number [facility] [address] [place] [phone] * Hepatitis C Antibody with Reflex to HCV, RNA, Quantitative, Real-Time PCR (05/25/2024 9:46 AM EST) Hepatitis C Antibody Nonreactive Nonreactive [facility] Comment:Antibodies to HCV no t detected; does not exclude early acuteHCV infection. Blood Venous blood specimen / Unknown 05/25/2024 9:46 AM EST 05/25/2024 10:53 AM EST us Amina Nieves MD LAB BLOOD ORDERABLES Final Res ult Performing Organization Address [facility] Co de Phone Number [facility] [address] [place] [phone] * (ABNORMAL) Colonoscopy (10/18/2019) Colonoscopy Abnormal(A ) Normal Historical Provider HEALTH MAINTENANCE Edited Result - Final from Last 3 Months or Most Recently Relevant to Health Maintenance Insurance [address] [place] [id number] [facility] SKILLED NURSING OPTIONS (HMO D-SNP) [address] [place] [address] Care Teams Drug Room Clerk Relationship Specialty Start Date End Date Amina Nieves MD [address] [place] [phone] PCP - General Family Medicine 04/07/21
--- OUTSIDE RECORDS SUMMARY | 2025-05-03 17:38 | XMS_ITS | Encounter Summary ---
Author Organization [employer] Address [address] [place] [address] [address] [place] [address] Care Team Providers Care Hammerer Helper Name Role Phone Amina Nieves MD Primary Care Provider [phone] Reason for Visit * Reason Comments Med Refill Encounter Details Date Type Department Care Team ([facility] st Contact Info) Description 06/01/2024 Refill [facility] [address] [place], [place] [phone] Jhoana Worrell DO [address] [place], [place] [phone] Social History Tobacco Use Types Packs/Day Years [...] documented as of this encounter Care Teams Hammerer Helper Relationship Specialty Start Date End Date Amina Nieves MD [address] [place] [phone] PCP - General Family Medicine 04/07/21 documented as of this encounter
== END 2025-05-03 13:41 | disposition home or self-care (01) ==
LOC: HO.US 13:40
PROVIDERS: PCP General Practice; Visit Provider Nurse Practitioner Family
DX: N13.2 Hydronephrosis with renal and ureteral calculous obstruction (principal)
CPT/HCPCS: 76775

== ENCOUNTER → 2025-05-03 13:44 | Outpatient (BNV) | payer OTHER, SELFPAY | PROVIDERS: PCP General Practice; Visit Provider Radiology Diagnostic Radiology | DX: N20.0 Calculus of kidney (principal) | CPT/HCPCS: 76775 ==

== ENCOUNTER 2025-06-25 08:33 | Emergency (ER) | payer OTHER, SELFPAY ==
--- NOTE | ~2025-06-25 | CT_ITS ---
EXAMINATION: CT ABDOMEN AND PELVIS WITHOUT CONTRAST CLINICAL INFORMATION: left renal colic COMPARISON: 03/15/25 TECHNIQUE: Multidetector volumetric imaging was performed from the superior aspect of the liver through the pubic symphysis. Sagittal and coronal reformatted images were obtained on the technologist's workstation. This CT examination was performed using dose optimization techniques as appropriate, variously including the following: *Automated exposure control *Adjustment of mA and/or kV according to patient size (this includes techniques or standardized protocols for targeted exams where dose is matched to indication/reason for exam; i.e. extremities or head) *Use of iterative reconstruction technique FINDINGS: LUNG BASES: Linear atelectasis or scarring is present in the posterior left lung base. Small pericardial effusion is again noted. It has likely decreased in volume. LIVER, GALLBLADDER, AND BILIARY TREE: Again seen is hepatomegaly and diffuse fatty changes in the liver. Again noted is a punctate calcific density in the medial dome of the liver. Again seen is a calcified stone in the gallbladder. PANCREAS: Unremarkable. SPLEEN: Unremarkable. ADRENAL GLANDS: Unremarkable. KIDNEYS AND URETERS: There is mild left hydronephrosis and perinephric stranding related to a 3 x 5 mm stone in the mid left ureter, at the level of L4-5. There is thinning of the cortex of the posterior right kidney. BLADDER: Unremarkable. GASTROINTESTINAL TRACT: The small and large bowel are unremarkable. The appendix is unremarkable. ABDOMINAL WALL: Again seen is an umbilical hernia containing adipose tissue. Hernia sac measures 4.2 cm and extends through a 1 cm neck. LYMPH NODES: Normal. VASCULAR: Moderate atherosclerotic calcifications are again noted. PELVIC VISCERA: Uterus is surgically absent. Ovaries are also not visualized. OSSEOUS STRUCTURES: Thoracic spine demonstrates flowing anterior osteophytes with disc space narrowing and degenerative endplate irregularity. Degenerative changes in the lumbar spine are most advanced at L2-3 there is mild to moderate loss of disc height and vacuum phenomena. There is rudimentary disc at L5-S1 and sacralization of the transverse processes. CT/CT abdomen pelvis wo IV con IMPRESSION: Mild left hydronephrosis with perinephric stranding and a 3 x 5 mm stone in the mid left ureter at the level of L4-5. Hepatic steatosis and hepatomegaly. Umbilical hernia containing fat, likely greater omentum, hernia sac measures 4.2 cm. Degenerative disc disease with changes of diffuse idiopathic skeletal hyperostosis (DISH) in the thoracic spine. Hysterectomy and bilateral nephrectomy. Cholelithiasis. Small pericardial effusion has likely decreased in volume since the prior. Fleischner guidelines were followed. Electronically signed by: Todd Schaefer MD 06/25/2025 12:52 PM EST
[2025-06-25 08:59] VITALS: BP 211/93; PULSE 90; RESP 20; TEMP 36.6; O2SAT 100; BMI 47.5
[2025-06-25 09:24] LABS: MANUAL DIFF FLAG NO
[2025-06-25 09:27] LABS: Hematocrit 40.0 % (37.0-47.0); Hemoglobin 13.1 g/dl (12.0-16.0); Imm Gran Abs Auto 0.03 X10*3/uL (0.00-0.03); Imm Gran Pct Auto 0.3 % (0.0-0.4); Lymphocytes Absolute Auto 1.8 X10*3/uL (1.2-4.9); Mean Corpuscular HGB Conc 32.8 g/dl (31.0-35.0); Mean Corpuscular Hemoglobin 26.4 pg (27.0-33.0); Mean Corpuscular Volume 80.6 fL (80.0-98.0); NRBC Abs Auto 0.000 X10*3/uL (0.0-0.012); NRBC Pct Auto 0.0 /100WBC (0.0-0.2); Platelet Count 282 X10*3/uL (160-400); Red Blood Count 4.96 X10*6/uL (4.20-5.50); White Blood Count 9.5 X10*3/uL (4.8-10.8)
[2025-06-25 09:41] LABS: Alanine Aminotransferase 27 U/L (0-31); Albumin Level 4.5 g/dL (3.5-5.0); Alkaline Phosphatase 132 U/L (39-117); Anion Gap 15 (12-20); Aspartate Amino Transferase 28 U/L (5-31); Blood Urea Nitrogen 27 mg/dL (9-16); Calcium 10.5 mg/dL (8.4-10.2); Carbon Dioxide 25 mmol/L (22-29); Chloride 104 mmol/L (96-108); Creatinine Clr Calc Pharmacy 43.9; Estimated Glomerular Filt Rate 42; Potassium 4.4 mmol/L (3.3-5.1); Sodium 140 mmol/L (135-145); Total Protein 7.8 g/dL (6.5-8.0)
[2025-06-25 11:07] VITALS: BP 170/70; PULSE 72; RESP 18; O2SAT 98
[2025-06-25 11:28] LABS: Appearance Urine Cloudy; Glucose Urine UA >=1000 mg/dL (Negative); PH 7.0 (5.0-9.0); Specific Gravity - Urine 1.020 (1.005-1.025); UMIC TRIGGER UACC YES
--- NOTE | 2025-06-25 12:09 | ED.ABDPAIN ---
HPI - Abdominal Pain General Chief Complaint: Abdominal Pain Stated Complaint: abd pain Time Seen by Provider: 06/25/25 11:10 Source: patient and faculty research physician Mode of arrival: ambulatory Limitations: no limitations, language barrier and altered mental status History of Present Illness ED Provider: HPI narrative: 70-year-old Austrian-speaking woman presenting with left-sided flank pain radiating down into her left lower quadrant and in the epigastric and left upper quadrant area, has a history of kidney stones, reports nausea but no vomiting, no fevers or chills no chest pain or shortness of breath, no naresh hematuria no dysuria reported. Has had no obstipation. Related Data Home Medications ?Medication ?Instructions ?Recorded ?Confirmed amlodipine 5 mg tablet 5 mg PO DAILY 05/02/20 04/26/25 aspirin 81 mg tablet,delayed 81 mg PO DAILY 05/02/20 04/26/25 release (Adult Low Dose Aspirin) cholecalciferol (vitamin D3) 50 50 mcg PO DAILY 05/02/20 04/26/25 mcg (2,000 unit) capsule gabapentin 100 mg capsule 100 mg PO BID 05/02/20 04/26/25 irbesartan 300 mg tablet 300 mg PO DAILY 05/02/20 04/26/25 isosorbide mononitrate 30 mg 30 mg PO DAILY 05/02/20 04/26/25 tablet,extended release 24 hr rosuvastatin 10 mg tablet 10 mg PO DAILY 05/02/20 04/26/25 calcium 500 mg (as 1 tab PO DAILY 04/25/21 04/26/25 carbonate)-vitamin D3 5 mcg (200 unit) tablet (Oyster Shell Calcium-Vitamin D3) dapagliflozin propanediol 10 mg 10 mg PO DAILY 08/07/21 04/26/25 tablet (Farxiga) metformin 500 mg tablet,extended 1,000 mg PO 03/09/22 03/26/25 release 24 hr blood sugar diagnostic (FreeStyle #10 ea 08/10/22 03/26/25 Lite Strips) lancets 33 gauge (TRUEplus Lancets) #100 ea 12/10/23 03/26/25 montelukast 10 mg tablet 10 mg PO DAILY 12/10/23 04/26/25 carvedilol 12.5 mg tablet 12.5 mg PO BID 06/30/24 04/26/25 furosemide 20 mg tablet 20 mg PO DAILY 06/30/24 04/26/25 Previous Rx's ?Medication ?Instructions ?Recorded cyanocobalamin (vitamin B-12) 1,000 mcg PO QAM #90 tabs 01/02/25 1,000 mcg tablet,extended release (Vitamin B-12 ER) pyridoxine (vitamin B6) 100 mg 100 mg PO DAILY 90 days #90 tabs 01/17/25 tablet ibuprofen 400 mg tablet 400 mg PO Q6H PRN pain #20 tabs 03/15/25 ondansetron 4 mg disintegrating 4 mg PO TID PRN nausea and 03/15/25 tablet vomiting 5 days #10 tabs oxycodone 5 mg tablet 5 mg PO Q8H PRN pain #7 tabs 03/15/25 tamsulosin 0.4 mg capsule (Flomax) 0.4 mg PO DAILY #7 caps 03/15/25 tramadol 50 mg tablet 50 mg PO Q8H PRN pain 5 days #15 03/26/25 tabs ondansetron 4 mg disintegrating 4 mg PO Q8H PRN nausea and 06/25/25 tablet vomiting 3 days #7 tabs oxycodone 10 mg tablet 10 mg PO Q4-6H PRN pain #10 tabs 06/25/25 tamsulosin 0.4 mg capsule 0.4 mg PO BEDTIME 5 days #5 caps 06/25/25 Allergies Allergy/AdvReac Type Severity Reaction Status Date / Time Penicillins (PENICILLINS) Allergy Intermediate HIVES Verified 06/25/25 09:01 fluticasone (From Advair Allergy Mild Unknown Verified 06/25/25 09:01 Diskus) potassium Allergy Mild Unknown Verified 06/25/25 09:01 salmeterol (From Advair Allergy Mild Unknown Verified 06/25/25 09:01 Diskus) Review of Systems Constitutional: Reports as per [facility] Past Medical History Medical History (Updated 06/25/25 @ 13:28 by Clark Bhatt DO) Endometrial cancer Renal calculi Irritable bowel syndrome Microscopic hematuria Eczema GERD (gastroesophageal reflux disease) Bursitis of heel Achilles tendinitis Juvenile xanthogranuloma Pilar cysts Hypercholesterolemia Kidney stones Osteoarthritis of right knee Osteoarthritis of left knee Hypertension Diabetes mellitus Surgical History (Updated 04/26/25 @ 09:47 by Jennifer Ramirez RN) Hx of cystoscopy (04/02/25) History of surgery Hx of total knee arthroplasty (~2017) History of tubal ligation Social History Social History Household Members: None Housing: Apartment Alcohol intake: never Patient Tobacco Use Status: Never used Tobacco Current occupational status: disabled Physical Exam ED Exam Exam: ?General: ??looks age appropriate ?PERRLA, EOMI, MMM, Neck: Supple, no LAD ?CV: RRR, no obvious murmurs appreciated ?Resp: ?No wheezing rales rhonchi no stridor moving air well Abd: ?Bowel sounds are present, epigastric tenderness no right upper quadrant tenderness, left middle quadrant tenderness, pain over the left flank as well MSK: FROM, strength 5/5 all extremities, no lower extremity edema Skin: Warm, dry, intact, ?Neuro: ?Alert and oriented x3, moving upper and lower extremities symmetrically, no obvious facial asymmetry noted, cranial nerves 2-12 intact Vital Signs: Vital Signs - 24 hr 06/25/25 08:59 06/25/25 11:07 06/25/25 13:09 Temperature 98 F Pulse Rate 90 72 71 Respiratory Rate 20 18 16 Blood Pressure 211/93 H 170/70 H 196/77 H Pulse Oximetry 100 98 99 Oxygen Delivery Method Room Air Room Air Room Air BMI result Body Mass Index 47.5 Medical Decision Making Medical Decision Making [facility] Narrative: 12:13 PM 06/25/2025 (Dr. Clark Bhatt): Patient is presenting with flank pain radiating to lower abdomen history of kidney stones blood work reveals no evidence for [place], does have naresh hematuria without dysuria, we will medicate for pain, obtain imaging to evaluate for further kidney stones other differential includes diverticulitis, SBO less likely, unlikely perforation or biliary pancreatic pathology, disposition to be determined. Differential Diagnosis Differential Diagnoses: The differential diagnosis associated with the presentation includes (Cholecystitis, pancreatitis, hepatitis, gastritis, cholangitis, choledocholithiasis, SBO, renal colic) Admission/Observation Consideration of admission/observation: Escalation of care including admission/observation considered Lab Data [facility] Lab Attestation statement: I reviewed the patient's lab results. 06/25/25 09:12 06/25/25 09:12 Labs: Lab Results 06/25/25 06/25/25 Range/Units 09:12 11:10 WBC 9.5 (4.8-10.8) X10*3/uL RBC 4.96 (4.20-5.50) X10*6/uL Hgb 13.1 (12.0-16.0) g/dl Hct 40.0 (37.0-47.0) % MCV 80.6 (80.0-98.0) fL MCH 26.4 L (27.0-33.0) pg MCHC 32.8 (31.0-35.0) g/dl RDW 13.9 (11.0-16.0) % Plt Count 282 (160-400) X10*3/uL MPV 11.5 (9.4-12.3) fL Immature Gran % (Auto) 0.3 (0.0-0.4) % Neut % (Auto) 75.0 H (45-73) % Lymph % (Auto) 18.9 L (20-40) % Ransom % (Auto) 4.7 (2-11) % Eos % (Auto) 0.7 (0-4) % Baso % (Auto) 0.4 (0-2) % Lymph # (Auto) 1.8 (1.2-4.9) X10*3/uL Ransom # (Auto) 0.5 (0.1-1.2) X10*3/uL Eos # (Auto) 0.1 (0.0-0.4) X10*3/uL Baso # (Auto) 0.0 (0.0-0.2) X10*3/uL Abs Immat Gran (auto) 0.03 (0.00-0.03) X10*3/uL Absolute Neuts (auto) 7.1 (2.0-8.3) x10*3/uL Absolute Nucleated RBC 0.000 (0.0-0.012) X10*3/uL Nucleated RBC % (auto) 0.0 (0.0-0.2) /100WBC Sodium 140 (135-145) mmol/L Potassium 4.4 (3.3-5.1) mmol/L Chloride 104 (96-108) mmol/L Carbon Dioxide 25 (22-29) mmol/L Anion Gap 15 (12-20) BUN 27 H (9-16) mg/dL Creatinine 1.25 (0.5-1.4) mg/dL Estim Creat Clear Calc 43.9 Estimated GFR 42 Random Glucose 274 H (60-115) mg/dL Calcium 10.5 H D (8.4-10.2) mg/dL Total Bilirubin 0.7 (0.0-1.0) mg/dL Direct Bilirubin 0.2 (0.0-0.5) mg/dL AST 28 (5-31) U/L ALT 27 (0-31) U/L Alkaline Phosphatase 132 H (39-117) U/L Total Protein 7.8 (6.5-8.0) g/dL Albumin 4.5 (3.5-5.0) g/dL Urine Color Red A Urine Appearance Cloudy Urine pH 7.0 (5.0-9.0) Ur Specific Lafe 1.020 (1.005-1.025) Urine Protein 30 (1+) H (Neg-Trace) mg/dL Urine Glucose (UA) >=1000 H (Negative) mg/dL Urine Ketones Trace (Negative) mg/dL Urine Blood Large (3+) H (Negative) Urine Nitrite Negative (Negative) Ur Leukocyte Esterase Negative (Negative) Urine RBC >20 H (0-2) /HPF Urine WBC 0-5 (0-5) /HPF Ur Squamous Epith Cells 0-2 (0-2) /HPF Urine Bacteria None Seen (None Seen) Hyaline Casts 0-2 (0-2) /LPF Radiology Impression Discussion of test interpretation with radiology: I have reviewed the radiologist's reading. ( CT/CT abdomen pelvis wo IV con IMPRESSION: Mild left hydronephrosis with perinephric stranding and a 3 x 5 mm stone in the mid left ureter at the level of L4-5. Hepatic steatosis and hepatomegaly. Umbilical hernia containing fat, likely greater omentum, hernia sac measures 4) Medications Administered Discontinued Medications Generic Name Dose Route Start Last Admin Trade Name Freq PRN Reason Stop Dose Admin Ketorolac Tromethamine 15 mg 06/25/25 11:41 06/25/25 13:06 Ketorolac Tromethamine 15 Mg/Ml Vial IVPUSH 06/25/25 11:42 15 mg ONCE ONE Administration Morphine Sulfate 4 mg 06/25/25 11:41 06/25/25 13:08 Morphine Sulfate 4 Mg/Ml Cartridge IVPUSH 06/25/25 11:42 4 mg ONCE ONE Administration Protocol Ondansetron HCl 4 mg 06/25/25 11:41 06/25/25 13:05 Ondansetron Hcl 4 Mg/2 Ml Vial IVPUSH 06/25/25 11:42 4 mg ONCE ONE Administration Discharge Plan Discharge Clinical Impression: Renal colic on left side Instructions: Renal Colic (ED) Additional Instructions: you are in the process of passing a kidney stone, I recommend using ibuprofen 400 mg every 6 hours around the clock for the next 2 days, oxycodone as prescribed this is a narcotic do not mix with any other pain medications, and Zofran as needed for nausea and vomiting, Flomax to help pass the stone before bedtime, it can make you dizzy be mindful while going to the bathroom after taking this medication Follow up with the PCP or urologist inability to urinate fevers chills worsening issues come back to the ER No kidney injury, no urinary infection Prescriptions: New oxycodone 10 mg tablet 10 mg PO Q4-6H PRN (Reason: pain) Qty: 10 0RF Rx Instructions: Partial Fill upon patient request. tamsulosin 0.4 mg capsule 0.4 mg PO BEDTIME 5 Days Qty: 5 0RF ondansetron 4 mg tablet,disintegrating 4 mg PO Q8H PRN (Reason: nausea and vomiting) 3 Days Qty: 7 0RF No Action cyanocobalamin (vitamin B-12) [Vitamin B-12] 1,000 mcg tablet extended release 1,000 mcg PO QAM Qty: 90 2RF pyridoxine (vitamin B6) 100 mg tablet 100 mg PO DAILY 90 Days Qty: 90 3RF calcium carbonate-vitamin D3 [Oyster Shell Calcium-Vit D3] 500 mg(1,250mg) -200 unit tablet 1 tab PO DAILY tamsulosin [Flomax] 0.4 mg capsule 0.4 mg PO DAILY Qty: 7 0RF ibuprofen 400 mg tablet 400 mg PO Q6H PRN (Reason: pain) Qty: 20 0RF ondansetron 4 mg tablet,disintegrating 4 mg PO TID PRN (Reason: nausea and vomiting) 5 Days Qty: 10 0RF oxycodone 5 mg tablet 5 mg PO Q8H PRN (Reason: pain) Qty: 7 0RF Rx Instructions: Partial Fill upon patient request. gabapentin 100 mg capsule 100 mg PO BID rosuvastatin 10 mg tablet 10 mg PO DAILY aspirin [Adult Low Dose Aspirin] 81 mg tablet,delayed release (DR/EC) 81 mg PO DAILY amlodipine 5 mg tablet 5 mg PO DAILY cholecalciferol (vitamin D3) 50 mcg (2,000 unit) capsule 50 mcg PO DAILY isosorbide mononitrate 30 mg tablet extended release 24 hr 30 mg PO DAILY irbesartan 300 mg tablet 300 mg PO DAILY Farxiga 10 mg tablet 10 mg PO DAILY metformin 500 mg tablet extended release 24 hr 1,000 mg PO (DME) FreeStyle Lite Strips Strip See Rx Instructions .ROUTE BID Qty: 10 Rx Instructions: As directed (DME) lancets [TRUEplus Lancets] 33 gauge misc See Rx Instructions .ROUTE .MEDSUPPLY Qty: 100 Rx Instructions: As directed montelukast 10 mg tablet 10 mg PO DAILY furosemide 20 mg tablet 20 mg PO DAILY carvedilol 12.5 mg tablet 12.5 mg PO BID tramadol 50 mg tablet 50 mg PO Q8H PRN (Reason: pain) 5 Days Qty: 15 0RF Rx Instructions: P.r.n. for pain Referrals: Amina Nieves MD [Primary Care Provider, Internal Medicine] - 1 week Clinical Impression: Renal colic on left side Print Language: Austrian
[2025-06-25 13:09] VITALS: BP 196/77; PULSE 71; RESP 16; O2SAT 99
--- NOTE | 2025-06-25 13:09 | PC.NURSE ---
Medicated for pain as charted. Delay in director of medical services, need U/S IV, placed by Dr Givens, 20g right FA
[2025-06-25 13:52] VITALS: BP 150/46; PULSE 64; RESP 16; TEMP -17.7; TEMP 0; O2SAT 97
== END 2025-06-25 13:54 | disposition home or self-care (01) ==
PROVIDERS: Emergency Provider Emergency Medicine; PCP General Practice
DX: N13.2 Hydronephrosis with renal and ureteral calculous obstruction (principal); R10.32 Left lower quadrant pain; Z87.442 Personal history of urinary calculi; E11.9 Type 2 diabetes mellitus without complications
CPT/HCPCS: 36410; 36415; 74176; 76937; 80048; 80076; 81001; 85025; 96374; 96375; 99284; J1885; J2270; J2405

== ENCOUNTER → 2025-06-25 11:41 | Outpatient (BNV) | payer OTHER, SELFPAY | PROVIDERS: Emergency Provider Emergency Medicine; PCP General Practice; Visit Provider Radiology Diagnostic Radiology | DX: N13.30 Unspecified hydronephrosis (principal); N20.1 Calculus of ureter; K80.20 Calculus of gallbladder without cholecystitis without obstruction; K76.0 Fatty (change of) liver, not elsewhere classified; R16.0 Hepatomegaly, not elsewhere classified; K42.9 Umbilical hernia without obstruction or gangrene; I31.39 Other pericardial effusion (noninflammatory) | CPT/HCPCS: 74176 ==